=== PATIENT | male | born 1945 | race Two or more races ===

== ENCOUNTER → 2024-08-07 | Outpatient (CLI) | payer MEDICARE, MEDICAID, SELFPAY ==
--- NOTE | 2024-08-07 14:19 | XR_ITS ---
Examination: AP lateral chest 2 views Technique: Sitting AP lateral chest 2 views Exam date and time: August 07, 2024 1452 hrs. Comparison August 08, 2023 Indications: History pulmonary nodules Findings: Normal heart size Ectatic enlarged thoracic aorta No lobar pneumonia No pulmonary edema No rm pulmonary nodules Impression: No pneumonia or pulmonary edema, suggest repeat CT chest without contrast to compare with the August 08, 2023 exam
== END | disposition home or self-care (01) ==
PROVIDERS: PCP Family Medicine; Referring Provider Family Medicine; Visit Provider Family Medicine
DX: R91.8 Other nonspecific abnormal finding of lung field (principal)
CPT/HCPCS: 71046

== ENCOUNTER → 2024-08-20 | Outpatient (CLI) | payer MEDICARE, MEDICAID, SELFPAY ==
[2024-08-20 13:39] LABS: Basophils % (Auto) 0 % (0-2.5); Eosinophils % (Auto) 0 % (0-10); Hematocrit 30.1 % (41.0-53.0); Hemoglobin 10.5 g/dL (13.5-16.0); Immature Granulocytes % (Auto) 1 % (0-0); Immature Granulocytes Auto 0.08 Thou/mm3 (0.00-0.00); Lymphocytes # (Auto) 1.5 Thou/mm3 (1.0-4.8); Lymphocytes % (Auto) 13 % (10-50); Mean Corpuscular HGB Conc 34.9 g/dl (31.0-37.0); Mean Corpuscular Volume 92 fL (80-100); Monocytes # (Auto) 0.5 Thou/mm3 (0.0-0.8); Monocytes % (Auto) 4 % (0-12); Neutrophils # (Auto) 9.8 Thou/mm3 (1.8-7.7); Neutrophils % (Auto) 82 % (37-80); Nucleated Red Blood Cell % 0 /100 WBC (0); Platelet Count 546 Thou/mm3 (140-440); RDW Standard Deviation 45.2 fL (35.1-43.9); Red Blood Count 3.28 Miln/mm3 (4.50-5.90); White Blood Count 11.9 Thou/mm3 (3.8-10.6)
[2024-08-20 13:46] LABS: Glucose Estimated Average 209 mg/dL (80-131); Hemoglobin A1C 8.9 % Hgb (4.8-6.0)
[2024-08-20 13:50] LABS: Creatinine MALB Rnd Ur 68 mg/dL (30-125); Microalbumin Creat Ratio 257 mg/gCrea (<30); Microalbumin, Random Urine 175 mg/L (0-300)
[2024-08-20 13:53] LABS: Alanine Aminotransferase 15 U/L (10-49); Albumin, Serum 3.5 gm/dL (3.4-4.8); Albumin/Globulin Ratio 1.3 (1.2-2.2); Alkaline Phosphatase 108 U/L (46-116); Anion Gap 7 (7-16); Aspartate Amino Transferase 15 U/L (0-34); BUN/Creatinine Ratio 15 Ratio (12-20); Bilirubin,Total 0.6 mg/dL (0.3-1.2); Blood Urea Nitrogen 16 mg/dL (9-23); Calcium 8.5 mg/dL (8.3-10.6); Calcium (Corrected) 8.9 mg/dL (8.5-10.1); Carbon Dioxide 24.9 mMol/L (20.0-31.0); Cardiac Risk Estimate 3.3 RATIO (4.0-6.7); Chloride 100 mMol/L (98-107); Cholesterol 72 mg/dL (132-200); Creatinine (Component) 1.1 mg/dL (0.6-1.3); Globulin 2.8 gm/dL (2.3-3.5); Glucose 397 mg/dL (74-106); HDL Cholesterol 22 mg/dL (40-60); LDL Cholesterol,Calculated 24 mg/dL (0-130); Osmolality,Calculated 282 (275-295); Potassium 4.2 mMol/L (3.4-5.1); Sodium 132 mMol/L (136-145); Total Protein 6.3 gm/dL (5.7-8.2); Triglycerides 132 mg/dL (30-150); eGFR > 60 See Note
== END | disposition home or self-care (01) ==
PROVIDERS: PCP Family Medicine; Referring Provider Family Medicine; Visit Provider Family Medicine
DX: E11.65 Type 2 diabetes mellitus with hyperglycemia (principal)
CPT/HCPCS: 36415; 80053; 80061; 82043; 82570; 83036; 85025

== ENCOUNTER 2024-08-31 17:37 | Inpatient (IN) | payer MEDICARE, MEDICAID, SELFPAY ==
[2024-08-31] VITALS (42 sets, daily range): BP systolic 92–131; BP diastolic 66–80; PULSE 54–136; RESP 14–35; TEMP 36.6; O2SAT 96–100; BMI 20.7
--- NOTE | 2024-08-31 17:38 | PC.NURSE ---
PT BROUGHT IN BY AMBULANCE WITH C/O NEAR SYNCOPE AT 1700. PT ALSO C/O GENERALIZED WEAKNESS AND SHORTNESS OF BREATH WITH WALKING ALL DAY
--- NOTE | 2024-08-31 17:47 | EKG_ITS ---
[facility] Test Date: 2024-08-31 Pat Name: SOHAIL BOLAND Department: Room: - Gender: Male [place]: : 1945 Requested By: ED Temporary Provider Order Number: [id number] Reading MD: ED Temporary Provider Measurements Intervals [place] Rate: 120 P: 71 NH: 138 QRS: 53 QRSD: 87 T: 61 QT: 318 QTc: 449 Interpretive Statements SINUS TACHYCARDIA WITH OCCASIONAL SUPRAVENTRICULAR PREMATURE COMPLEXES NONSPECIFIC T-WAVE ABNORMALITY ABNORMAL RHYTHM ECG Compared to ECG 08/08/2023 11:42:29 Sinus rhythm no longer present T-wave abnormality still present /store/S0/[id number].pdf
--- NOTE | 2024-08-31 18:25 | EKG_ITS ---
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
--- NOTE | 2024-08-31 18:25 | XR_ITS ---
Examination: CT brain head without contrast. 2-D sagittal coronal reconstructions Date and time of exam:August 31, 2024 2145 hours COMPARISON: April 26, 2023 Syncopal episode today CTDI: vol (mGy):54.2 DLP: (mGycm):1183 Technique: Multiple CT axial sections of the brain have been obtained, 5 mm slice thickness. Contrast has not been administered. 2-D sagittal, coronal reconstructions have been obtained Low dose protocols were performed. One or more of the following dose reduction techniques were used; automated exposure control, adjustment of the mA and/or KV according to patient size, use of iterative reconstruction technique. Findings: No significant ventricular enlargement. 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 No mass effect or midline shift Basal cisterns are not remarkable. Fourth ventricle is midline. Cranial vault intact. Impression: Negative for acute hemorrhage, mass effect or midline shift As clinically warranted, brain MRI follow-up would best assess for acute ischemic change
--- NOTE | 2024-08-31 18:25 | XR_ITS ---
Examination: AP chest single view TECHNIQUE: AP portable semiupright chest single view Examination type: August 31, 2024 1809 hours Comparison August 07, 2024 INDICATIONS: Shortness of breath today FINDINGS: Normal heart size Mildly ectatic thoracic aorta. No pneumonia or pulmonary edema. Prominent osteopenia with moderate osteoarthritis glenohumeral joints IMPRESSION: No pneumonia or pulmonary edema
--- NOTE | 2024-08-31 18:26 | XR_ITS ---
Examination: CT abdomen with intravenous contrast CT pelvis with intravenous contrast 2-D coronal reconstructions 2-D sagittal reconstructions Date and time of exam:August 31, 2024 at 2158 hours INDICATIONS: Sudden onset of abdominal pain today. CTDI: vol (mGy) 1021 DLP: (mGycm) 614 Technique: Multiple axial sections of the abdomen and pelvis have been obtained. 64 slice high-resolution scanner used. 3 mm axial sections have been obtained, post intravenous injection 100 cc Isovue-370 2-D sagittal, coronal reconstructions obtained. Low dose protocols were performed. One or more of the following dose reduction techniques were used; automated exposure control, adjustment of the mA and/or KV according to patient size, use of iterative reconstruction technique. Findings: Mucosal gastric edema No focal liver lesions Absent gallbladder Spleen not enlarged No pancreatic mass No common bile duct stones Moderate bilateral renal parenchymal scar formation Mild perinephric stranding No bowel obstruction Minimal thickening of the urinary bladder wall Significant prostatomegaly, transverse dimension 6.1 cm Significant osteopenia IMPRESSION: Gastritis pattern Moderate bilateral renal parenchymal scar formation with perinephric stranding, consider urinary tract infection Significant prostatomegaly, minimal thickening of the urinary bladder wall, likely early urinary tract outflow obstruction secondary to the prominent prostatomegaly
--- NOTE | 2024-08-31 18:26 | XR_ITS ---
Examination: CTA chest with intravenous contrast 2-D reconstructions 3-D reconstructions, vascular Date and time of exam: August 31, 2024 at 2158 hours INDICATIONS: Chest pain shortness of breath today CTDI: vol (mGy) 10.7 DLP: (mGycm) 471 Technique: Multiple axial sections of the thorax have been obtained. 3 mm slice thickness, from below the hemidiaphragms to above the apices of the lungs. Mediastinal and lung density settings have been obtained. 2-D sagittal and coronal reconstructions. 3-D angiographic renderings, 3-D volume renderings, 3D post processing, vascular maximum intensity projections obtained. Contrast administered is 100 cc Isovue 370. Low dose protocols were performed. One or more of the following dose reduction techniques were used; automated exposure control, adjustment of the mA and/or KV according to patient size, use of iterative reconstruction technique. Findings: No thoracic aortic aneurysm dilatation Pulmonary artery segments are not enlarged No pulmonary artery emboli No paratracheal tracheobronchial or bronchopulmonary adenopathy Stable bilateral subcentimeter pulmonary nodules COPD with areas of airspace destruction No pneumonia or pulmonary edema Bronchi in the lower lobes are dilated No liver or splenic lesion Absent gallbladder Kidneys partially visualized no hydronephrosis Multiple bilateral subcentimeter renal calculi IMPRESSION: No thoracic aortic aneurysm dilatation or dissection Negative for pulmonary artery emboli Stable subcentimeter pulmonary nodules compared with August 08, 2023 COPD No pneumonia or pulmonary edema Multiple bilateral subcentimeter nonobstructing renal calculi
--- NOTE | 2024-08-31 18:26 | XR_ITS ---
Examination: CT lumbar spine, without contrast. 2-D sagittal reconstructions. 2-D coronal reconstructions. 3-D reconstructions. Date and time of exam:August 31, 2024 2147 hours INDICATIONS: Onset lower back pain today CTDI: vol (mGy):34.1 DLP: (mGycm):1091 Technique: Multiple 1.25 mm axial sections of the lumbar spine without intravenous contrast have been obtained. 2-D sagittal and coronal reconstructions have been obtained. 3-D reconstructions have been obtained. Low dose protocols were performed. One or more of the following dose reduction techniques were used; automated exposure control, adjustment of the mA and/or KV according to patient size, use of iterative reconstruction technique. Findings: Severe osteopenia Lumbar fusion L4-L5, L5-S1 No spondylolisthesis Lumbar pedicles, laminae, transverse and posterior spinous processes intact L5-S1 6 mm central lumbar disc bulge contiguous with the right and left S1 nerve roots extending to the right foramen with moderate right L5 ganglionic compression L4-L5 no disc protrusion L3-L4 no disc protrusion L2-L3 no disc protrusion L1-L2 no disc protrusion Partial visualization bilateral subcentimeter renal calculi IMPRESSION: No lumbar fracture L5-S1 6 mm central and right foraminal disc bulge producing moderate right L5 ganglionic compression
--- NOTE | 2024-08-31 18:28 | PD.EDWEAK ---
ED Weakness RME/HPI General Chief complaint: Weakness Stated complaint: NEAR SYNCOPE Time Seen by Provider: 08/31/24 18:16 Arrival date/time: 08/31/24 17:37 Related Data Home Medications ?Medication ?Instructions ?Recorded ?Confirmed tamsulosin 0.4 mg capsule (Flomax) 0.4 mg PO QDAY ##0 07/15/16 08/10/23 finasteride 5 mg tablet 5 mg PO QDAY 07/05/19 08/10/23 docusate sodium 100 mg capsule 1 cap PO BID 03/04/22 08/10/23 dupilumab 300 mg/2 mL subcutaneous 2 ml subcut PRN PRN Pain 03/04/22 08/10/23 syringe (Dupixent) metformin 1,000 mg tablet 1 tab PO BID 03/04/22 08/10/23 multivitamin 1 tab PO QAM 03/04/22 08/10/23 sodium chloride 1,000 mg soluble 1 tab PO BID 03/04/22 08/10/23 tablet Previous Rx's ?Medication ?Instructions ?Recorded aspirin 81 mg tablet,delayed 81 mg PO QDAY #30 tabs 08/10/23 release atorvastatin 40 mg tablet 40 mg PO QPM #30 tabs 08/10/23 ticagrelor 90 mg tablet (Brilinta) 90 mg PO BID #60 tabs 08/10/23 Allergies Allergy/AdvReac Type Severity Reaction Status Date / Time naproxen Allergy Severe DIFFICULTY Verified 08/31/24 17:51 BREATHING Course Orders Category Date Time Status Bedside COVID-19 Antigen Test NOW Care 08/31/24 18:24 Active Bedside Influenza A&B Antigen Test NOW Care 08/31/24 18:[address] Screening NOW Care 08/31/24 18:26 Active EKG (ED ONLY) *Do not use* NOW Care 08/31/24 17:47 Completed EKG (ED ONLY) *Do not use* NOW Care 08/31/24 18:25 Completed Saline [Insert IV] NOW Care 08/31/24 18:24 Active Straight [In and Out Catheter] X1 Care 08/31/24 18:[address] abdomen pelvis w con Stat Exams 08/31/24 18:[address] angio chest Stat Exams 08/31/24 18:[address] head/brain wo con Stat Exams 08/31/24 18:[address] lumbar spine wo con Stat Exams 08/31/24 18:26 Ordered EKG (ED Only) Stat Exams 08/31/24 17:47 Draft EKG (ED Only) Stat Exams 08/31/24 18:25 Ordered XR chest 1V portable Stat Exams 08/31/24 18:25 Ordered BNP [B-Type Natriuretic Peptide] Stat Lab 08/31/24 18:26 Ordered Beta Hydroxybutyrate Stat Lab 08/31/24 18:27 Ordered Blood Culture (Lab) Stat Lab 08/31/24 18:27 Ordered CBC Stat Lab 08/31/24 18:27 Ordered CMP [Comprehensive Metabolic Panel] Stat Lab 08/31/24 18:27 Ordered CRP [C-Reactive Protein] Stat Lab 08/31/24 18:27 Ordered D-Dimer Stat Lab 08/31/24 18:27 Ordered ESR [Sed Rate (ESR)] Stat Lab 08/31/24 18:27 Ordered Lactate (Lactic Acid) Stat Lab 08/31/24 18:27 Ordered Magnesium Stat Lab 08/31/24 18:27 Ordered Procalcitonin Stat Lab 08/31/24 18:27 Ordered TSH [Thyroid Stimulating Hormone] Stat Lab 08/31/24 18:27 Ordered Troponin I Stat Lab 08/31/24 18:27 Ordered UA, C/S IF [Urinalysis, C/S if Indicated] Stat Lab 08/31/24 18:27 Ordered Sodium Chloride 0.9% 1000 ml [Ns] 1,000 ml Med 08/31/24 18:24 Active IV 999 mls/hr Vital Signs Vital signs: Vital Signs Temperature 97.9 F 08/31/24 17:38 Pulse Rate 127 H 08/31/24 17:38 Respiratory Rate 18 08/31/24 17:38 Blood Pressure 92/69 08/31/24 17:38 Pulse Oximetry (%) 99 08/31/24 17:38 Oxygen Delivery Method Room Air 08/31/24 17:38 Weakness Evaluation data The following diagnostics were reviewed and interpreted by me:: EKG tracing(s) (My interpretation of the EKG is: Sinus tachycardia (120 bpm) with nonspecific ST-T changes. Tramaine Albrecht MD) Medications / Prescriptions Medication administrations:: Medication Administration History Sodium Chloride (Ns) 1,000 mls @ 999 mls/hr IV .Q1H1M ONE Stop: 08/31/24 19:24 Discharge Plan Prescriptions/Referrals Prescriptions/Med Rec: No Action tamsulosin [Flomax] 0.4 MG capsule,extended release 24hr 0.4 mg PO QDAY Qty: 0 finasteride 5 mg tablet 5 mg PO QDAY Patient Comments: TAKE ONE TABLET BY MOUTH EVERY DAY FOR PROSTATE aspirin 81 mg Tablet,Delayed Release (Dr/Ec) 81 mg PO QDAY Qty: 30 2RF Brilinta 90 mg Tablet 90 mg PO BID Qty: 60 2RF atorvastatin 40 mg tablet 40 mg PO QPM Qty: 30 0RF multivitamin Tablet 1 tab PO QAM Patient Comments: TAKE ONE TABLET BY MOUTH EVERY DAY IN THE MORNING metformin 1,000 mg tablet 1 tab PO BID Patient Comments: TAKE ONE TABLET BY MOUTH TWICE DAILY docusate sodium 100 mg capsule 1 cap PO BID Patient Comments: TAKE ONE CAPSULE BY MOUTH TWICE DAILY FOR CONSTIPATION sodium chloride 1,000 mg tablet,soluble 1 tab PO BID Patient Comments: TAKE ONE TABLET BY MOUTH TWICE DAILY Dupixent Syringe 300 mg/2 mL syringe 2 ml SUBCUT PRN PRN (Reason: Pain) Patient Comments: INJECT ONE PEN SUBCUTANEOUSLY EVERY TWO WEEKS Rx Instructions: [id number] Patient/Caregiver Discharge Instructions Print Language: Hebrew
[2024-08-31] MEDS: SODIUM CHLORIDE 0.9% 1000 ML 1,000 ML 999 ML IV (18:46)
[2024-08-31 19:03] LABS: Lactate (Lactic Acid) 1.4 mMol/L (0.4-2.0)
[2024-08-31 19:04] LABS: Basophils # (Auto) 0.1 Thou/mm3 (0.0-0.2); Basophils % (Auto) 0 % (0-2.5); Eosinophils % (Auto) 0 % (0-10); Hematocrit 31.1 % (41.0-53.0); Hemoglobin 10.8 g/dL (13.5-16.0); Immature Granulocytes % (Auto) 1 % (0-0); Immature Granulocytes Auto 0.11 Thou/mm3 (0.00-0.00); Lymphocytes % (Auto) 9 % (10-50); Mean Corpuscular HGB Conc 34.7 g/dl (31.0-37.0); Mean Corpuscular Volume 92 fL (80-100); Monocytes # (Auto) 0.5 Thou/mm3 (0.0-0.8); Monocytes % (Auto) 5 % (0-12); Neutrophils # (Auto) 10.1 Thou/mm3 (1.8-7.7); Neutrophils % (Auto) 85 % (37-80); Nucleated Red Blood Cell % 0 /100 WBC (0); Platelet Count 567 Thou/mm3 (140-440); RDW Standard Deviation 48.4 fL (35.1-43.9); Red Blood Count 3.38 Miln/mm3 (4.50-5.90); White Blood Count 11.9 Thou/mm3 (3.8-10.6)
[2024-08-31 19:09] LABS: Beta Hydroxybutyrate 2.8 mmol/L (<0.6)
[2024-08-31 19:11] LABS: Sed Rate (ESR) 36 mm/hr (0-20)
[2024-08-31 19:23] LABS: B-Type Natriuretic Peptide 74 pg/mL (0-100)
[2024-08-31 19:27] LABS: Alanine Aminotransferase 13 U/L (10-49); Albumin, Serum 3.6 gm/dL (3.4-4.8); Albumin/Globulin Ratio 1.2 (1.2-2.2); Alkaline Phosphatase 98 U/L (46-116); Anion Gap 11 (7-16); Aspartate Amino Transferase 19 U/L (0-34); BUN/Creatinine Ratio 14 Ratio (12-20); Bilirubin,Total 0.5 mg/dL (0.3-1.2); Blood Urea Nitrogen 15 mg/dL (9-23); Calcium 9.1 mg/dL (8.3-10.6); Calcium (Corrected) 9.4 mg/dL (8.5-10.1); Carbon Dioxide 23.4 mMol/L (20.0-31.0); Chloride 107 mMol/L (98-107); Creatinine (Component) 1.1 mg/dL (0.6-1.3); Estimated Creatinine Clearance 48.9 mL/min (>60); Globulin 3.1 gm/dL (2.3-3.5); Glucose 218 mg/dL (74-106); Magnesium 1.6 mg/dL (1.6-2.6); Osmolality,Calculated 289 (275-295); Potassium 4.1 mMol/L (3.4-5.1); Sodium 141 mMol/L (136-145); Total Protein 6.7 gm/dL (5.7-8.2); eGFR > 60 See Note
[2024-08-31 19:29] LABS: Troponin I 0.106 ng/mL (0.0-0.045)
[2024-08-31 19:56] LABS: D-Dimer 1300 ng/mL (<600)
[2024-08-31 20:42] LABS: Partial Thromboplastin Time 26.6 Seconds (22.0-36.0); Prothrombin Time 11.3 Seconds (9.0-12.2)
[2024-08-31 20:51] LABS: C-Reactive Protein 2.3 mg/dL (0.0-0.9); Procalcitonin 0.14 ng/ml (0.0-0.49); Thyroid Stimulating Hormone 1.43 uIU/mL (0.55-4.78)
[2024-08-31] MEDS: METOPROLOL TARTRATE 25 MG TABLET 12.5 MG PO (21:30)
[2024-08-31] MEDS: ASPIRIN 81 MG CHEW 324 MG PO (21:30)
[2024-08-31 22:01] LABS: Troponin I 0.784 ng/mL (0.0-0.045)
--- NOTE | 2024-08-31 23:01 | ESHP_ITS ---
<Statement entered by Donis Bains MD - 09/02/24 05:06> I reviewed above note and agree with findings and plans. I have also personally examined the patient with medicine team and went over assessment and plan with medical team including technology risk intern and resident physician. Documentation for date of: 08/31/24 HPI History of Present Illness History of present illness: The patient is a 78-year-old male with significant past medical history of hypertension, diabetes mellitus type 2, coronary artery disease s/p stents on July 2023, peripheral arterial disease, BPH presented to ED with chief complaint of generalized weakness and SOB. The patient reported that he was in his restroom, and he suddenly started feeling that he would not be able to walk anymore and called his grandson to help him out. He walks around his home with walker at baseline. He denied any headache, lightheadedness, chest pain, fever or chills, nausea or vomiting, any changes in bowel or bladder habit. He denied any leg swelling. In the ED, his vitals were significant for blood pressure 92/69, pulse 127 and saturating 99% on room air. Labs are significant for white count 11.9, RBC 3.38, hemoglobin 10.8, platelet 567, ESR 36, chemistry panel revealed creatinine clearance 48, creatinine 1.1 with baseline of 0.7. Blood sugar 218, initial troponin 0.106 that trended up to 0.784 and CRP 2.3. TSH 1.43. EKG revealed mild ST segment depression on V2 and V3 with sinus tachycardic. Chest x-ray revealed no pneumonia or pulmonary edema, head CT was negative for acute hemorrhage, mass effect or midline shift, abdomen/pelvis CT revealed gastritis pattern, moderate bilateral renal parenchymal eschar formation with perinephric stranding, significant prostatomegaly, minimal thickening of the urinary bladder wall. Chest CTA revealed no thoracic aortic artery aneurysm or dissection, negative for pulmonary artery emboli, multiple bilateral subcentimeter nonobstructive renal calculi. Lumbar MRI revealed L5-S1 6 mm central and right foraminal disc bulge producing moderate right L5 ganglionic compression. PMH: As mentioned above SHX: Cholecystectomy long time ago, 2 coronary stent placed on July 2023 Social history: About 50 pack year smoking history, smoking for 50 to 60 years, current smoker, denies any alcohol or illicit drug use Allergies: Naproxen, difficult to breathing Medications: Metformin thousand Mg daily, Jardiance 10 mg daily, tamsulosin 0.4 Mg daily, finasteride 5 Mg daily, salt tablet 1 g twice daily, trazodone 50 mg at bedtime, atorvastatin 80 Mg at bedtime, clopidogrel 75 Mg daily The patient received chewable aspirin 325 Mg x 1, was started on heparin drip ACS protocol. Manager Battery Dr. Mcdaniel once consulted, recommended heparin drip and admitting the patient to telemetry unit. Review of Systems Review of Systems Systems Reviewed: All systems reviewed, normal except as documented Exam Vital Signs Temp Pulse Resp BP Pulse Ox O2 Del Method 97.9 F 84 18 125/66 100 Room Air 08/31/24 22:08/31/24 22:08/31/24 22:08/31/24 22:29 08/31/24 22:08/31/24 22:29 Narrative Exam General: Elderly, cooperative gentleman, no acute distress, Alert and Oriented x 3, laying comfortably on bed HEENT: Mildly dry mucous membranes, oropharynx clear Neck: Supple, No masses, No JVD CVS: S1S2 Regular rate and rhythm, No murmurs, rubs or gallops Lungs: Clear to auscultation with no accessory use, no wheeze no rhonchi Abd: Soft, NT/ND, +BS, no organomegaly Ext: No edema, warm and well perfused Skin: No rash Psych: Appropriate mood and affect Results: Labs 08/31/24 18:43 08/31/24 18:43 Labs: Short CBC 08/31/24 Range/Units 18:43 WBC 11.9 H (3.8-10.6) Thou/mm3 Hgb 10.8 L (13.5-16.0) g/dL Hct 31.1 L (41.0-53.0) % Plt Count 567 H (140-440) Thou/mm3 BMP 08/31/24 18:43 Sodium 141 Potassium 4.1 Chloride 107 Carbon Dioxide 23.4 BUN 15 Creatinine 1.1 Glucose 218 H Calcium 9.1 Cardiac Enzymes 08/31/24 08/31/24 Range/Units 18:43 21:16 Troponin I 0.106 H* 0.784 H* D (0.0-0.045) ng/mL Liver Function 08/31/24 Range/Units 18:43 Total Bilirubin 0.5 (0.3-1.2) mg/dL AST 19 (0-34) U/L ALT 13 (10-49) U/L Alkaline Phosphatase 98 (46-116) U/L Albumin 3.6 (3.4-4.8) gm/dL Quality Measures Quality Measures VTE prophylaxis Advance care planning discussed with:: patient Medications Home Medications and Allergies Home Medications ?Medication ?Instructions ?Recorded ?Confirmed ?Type tamsulosin 0.4 mg capsule (Flomax) 0.4 mg PO QDAY ##0 07/15/16 08/10/23 History finasteride 5 mg tablet 5 mg PO QDAY 07/05/19 History docusate sodium 100 mg capsule 1 cap PO BID 03/04/22 0 08/10/23 History dupilumab 300 mg/2 mL subcutaneous 2 ml subcut PRN PRN Pain 03/04/22 08/10/23 History syringe (Dupixent) metformin 1,000 mg tablet 1 tab PO BID 03/04/22 History multivitamin 1 tab PO QAM 03/04/22 History sodium chloride 1,000 mg soluble 1 tab PO BID 03/04/22 08/10/23 History tablet Allergies Allergy/AdvReac Type Severity Reaction Status Date / Time naproxen Allergy Severe DIFFICULTY Verified 08/31/24 17:51 BREATHING Visit Medications Acetaminophen (Acetaminophen 325 Mg Tablet) 650 mg PO Q6H PRN PRN Reason: Fever >101.5 Stop: 09/30/24 22:51 Acetaminophen (Acetaminophen 325 Mg Tablet) 650 mg PO Q6H PRN PRN Reason: PAIN SCALE 1-3 (mild Stop: 09/30/24 22:51 Aspirin (Aspirin Ec 81 Mg Tabec) 81 mg PO HS HUMBERTO Stop: 10/01/24 20:59 Atorvastatin Calcium (Atorvastatin Calcium 10 Mg Tablet) 80 mg PO HS HUMBERTO Stop: 09/30/24 22:59 Finasteride (Finasteride 5 Mg Tablet) 5 mg PO QDAY HUMBERTO Stop: 10/01/24 08:59 Tamsulosin HCl (Tamsulosin Hcl 0.4 Mg Capsule) 0.4 mg PO HS HUMBERTO Stop: 10/01/24 20:59 Trazodone HCl (Trazodone Hcl 50 Mg Tablet) 50 mg PO HS HUMBERTO Stop: 09/30/24 22:59 Discontinued Medications Aspirin (Aspirin 81 Mg Chew) 324 mg PO X1 ONE Stop: 08/31/24 20:08 Enoxaparin Sodium (Enoxaparin Sod Inj 60 Mg/0.6 Ml Syringe) 65 mg SC X1 ONE Stop: 08/31/24 22:02 Sodium Chloride (Ns) 1,000 mls @ 999 mls/hr IV .Q1H1M ONE Stop: 08/31/24 19:24 Last Admin: 08/31/24 18:46 Dose: 999 mls/hr Magnesium Sulfate (Magnesium Sulfate Ivpb) 2 gm in 50 mls @ 25 mls/hr IV X1 ONE Stop: 08/31/24 22:06 Metoprolol Tartrate (Metoprolol Tartrate 25 Mg Tablet) 12.5 mg PO X1 ONE Stop: 08/31/24 20:08 Assessment & Plan Plan The patient is a 78-year-old male with significant past medical history of hypertension, diabetes mellitus type 2, coronary artery disease s/p stents on July 2023, peripheral arterial disease, BPH presented to ED with chief complaint of generalized weakness and SOB. Manager Battery Dr. Mcdaniel once consulted, recommended heparin drip and admitting the patient to telemetry unit for further management of NSTEMI. #NSTEMI #CAD #PAD #Rule out CVA #Rule out pulmonary embolism The patient presented with generalized weakness and SOB, acute on onset, has extensive cardiac history with 2 stents placed 1 year ago, heart rate was 127 during presentation EKG revealed [address] segment depression over V2 and V3, troponin trended up to 0.784 from 0.106, but patient denied any chest pain or chest pressure Chest x-ray revealed no pneumonia or pulmonary edema, head CT was negative for acute hemorrhage, mass effect or midline shift, abdomen/pelvis CT revealed gastritis pattern, moderate bilateral renal parenchymal eschar formation with perinephric stranding, significant prostatomegaly, minimal thickening of the urinary bladder wall. Chest CTA revealed no thoracic aortic artery aneurysm or dissection, negative for pulmonary artery emboli Received serial aspirin 325 Mg x 1, and was started on heparin drip ACS protocol in the ED -Continue on heparin drip ACS protocol -Started on aspirin 81 Mg and atorvastatin 80 Mg daily at night -Started on metoprolol succinate 37.5 Mg daily -Holding clopidogrel in the setting of possible cardiac intervention -Manager Battery Dr. Brando Mcdaniel consulted, appreciate recommendations -Ordered TTE -Trend troponin every 4 hourly until delta is achieved -Daily a.m. labs for CBC, CMP and electrolytes #JT Likely prerenal in the setting of possible poor oral intake Baseline creatinine is 0.7, presented with creatinine of 1.1 Patient received 1 L of normal saline bolus in the ED -Avoid nephrotoxins -Adequate hydration -Daily a.m. labs for CMP and electrolytes #Diabetes mellitus type Presented with blood sugar of 218 and BHB 2.8 with anion gap of 11 Patient is taking 1 g metformin daily along with Jardiance 10 mg daily at home -Started on sliding scale insulin every 6 hourly with lispro -Ordered A1c #Primary hypertension Currently blood pressure is under control -Started on home dose of metoprolol succinate and 37.5 Mg daily -Monitor closely #Mild normocytic anemia Presented with hemoglobin of 10.8, MCV 92 -Ordered iron panel and ferritin -Ordered peripheral blood smear -Ordered reticulocyte count -Ordered folic acid and vitamin B12 level -Ordered occult test for stool #Mild thrombocythemia #Mild leukocytosis Likely secondary to hemoconcentration and also reactive Presented with platelet of 567 and white count of 11.9 -Daily a.m. labs for CBC #Multiple bilateral subcentimeter nonobstructive renal calculi -Adequate fluid intake #Possible UTI Patient denies any urinary symptoms Moderate bilateral renal parenchymal eschar formation with perinephric stranding, significant prostatomegaly, minimal thickening of the urinary bladder wall -Ordered UA #L5-S1 disc bulges Lumbar MRI revealed L5-S1 6 mm central and right foraminal disc bulge producing moderate right L5 ganglionic compression. -Follow-up as an outpatient basis with orthopedics Health maintenance: Dispo: Patient admitted to telemetry unit for further management of NSTEMI DVT prophylaxis: On heparin drip Diet: Carb consistent low diet CODE STATUS: Full code The patient's management plan was discussed with my attending physician MD Ever Woodard MD, PGY2
[2024-08-31] MEDS: Magnesium Sulfate 2 GM Ivpb 2 GM/50 ML BAG IV (23:15)
[2024-09-01] VITALS (11 sets, daily range): BP systolic 106–154; BP diastolic 57–88; PULSE 65–81; RESP 15–22; TEMP 36.3–36.9; O2SAT 98–100; BMI 22.6; BMI 19.9
[2024-09-01] MEDS: HEPARIN SOD INJ 5000 UNIT/ML VIAL 3800 UNIT IV (00:10)
[2024-09-01] MEDS: Heparin/D5w 25K 250 ML Ivpb 25,000 UNIT/250 ML BAG 7.62 UNIT IV (00:14)
[2024-09-01 00:59] LABS: Troponin I 1.098 ng/mL (0.0-0.045)
[2024-09-01] MEDS: PANTOPRAZOLE INJ 40 MG VIAL IVP (02:18)
[2024-09-01] MEDS: Magnesium Sulfate 2 GM Ivpb 2 GM/50 ML BAG IV (02:30)
[2024-09-01] MEDS: INSULIN LISPRO (AdmeLOG) 1 UNIT/0.01 ML UNIT SC ×3 (02:40→20:28)
[2024-09-01] MEDS: ATORVASTATIN CALCIUM 10 MG TABLET 80 MG PO (03:07)
[2024-09-01] MEDS: traZODone HCL 50 MG TABLET PO ×2 (03:10→20:27)
--- NOTE | 2024-09-01 03:15 | PC.NURSE ---
@[id number] primary nurse on lunch a this time, bond writer covering primary nurse while on lunch. bond writer made contact with pt. pt found to have right upper arm 18GIV out and pt arm and gown and linen covered in blood. Pressure applied to sight until bleeding stopped, site cleaned, gauze applied and covered with pressure dressing, hematoma noted to iv site. New 20giv inserted to Rt forearm. No other signs of bleeding noted. Pt given new gown, and linen, and repositioned in bed. pt in NAD. call light within reach. bed at lowest position. pt updated on plan of care. plan of care ongoing.
[2024-09-01 04:31] LABS: Basophils # (Auto) 0.1 Thou/mm3 (0.0-0.2); Basophils % (Auto) 1 % (0-2.5); Eosinophils # (Auto) 0.1 Thou/mm3 (0.0-0.5); Eosinophils % (Auto) 1 % (0-10); Immature Granulocytes % (Auto) 1 % (0-0); Immature Granulocytes Auto 0.11 Thou/mm3 (0.00-0.00); Immature Reticulocyte Fraction 20.9 % (2.3-13.4); Lymphocytes # (Auto) 1.7 Thou/mm3 (1.0-4.8); Lymphocytes % (Auto) 18 % (10-50); Mean Corpuscular HGB Conc 34.8 g/dl (31.0-37.0); Mean Corpuscular Hemoglobin 32.5 pg (25.0-35.0); Mean Corpuscular Volume 93 fL (80-100); Monocytes # (Auto) 0.5 Thou/mm3 (0.0-0.8); Monocytes % (Auto) 5 % (0-12); Neutrophils # (Auto) 7.2 Thou/mm3 (1.8-7.7); Neutrophils % (Auto) 74 % (37-80); Nucleated Red Blood Cell % 0 /100 WBC (0); Platelet Count 467 Thou/mm3 (140-440); RDW Standard Deviation 49.7 fL (35.1-43.9); Red Blood Count 2.68 Miln/mm3 (4.50-5.90); Reticulocyte % (Auto) 2.3 % (0.5-1.5); Reticulocyte Absolute Auto 61.1 Biln/L (25.0-75.0); Reticulocyte Hgb Content 35.9 pg (28.0-35.0); White Blood Count 9.7 Thou/mm3 (3.8-10.6)
[2024-09-01 04:37] LABS: Hemoglobin 8.7 g/dL (13.5-16.0)
[2024-09-01 04:51] LABS: Glucose Estimated Average 223 mg/dL (80-131); Hemoglobin A1C 9.4 % Hgb (4.8-6.0)
[2024-09-01 05:04] LABS: Alanine Aminotransferase 12 U/L (10-49); Albumin, Serum 3.1 gm/dL (3.4-4.8); Albumin/Globulin Ratio 1.2 (1.2-2.2); Alkaline Phosphatase 84 U/L (46-116); Anion Gap 7 (7-16); Aspartate Amino Transferase 14 U/L (0-34); BUN/Creatinine Ratio 14 Ratio (12-20); Bilirubin,Total 0.4 mg/dL (0.3-1.2); Blood Urea Nitrogen 13 mg/dL (9-23); Calcium 7.9 mg/dL (8.3-10.6); Calcium (Corrected) 8.6 mg/dL (8.5-10.1); Carbon Dioxide 23.3 mMol/L (20.0-31.0); Chloride 108 mMol/L (98-107); Cholesterol 66 mg/dL (132-200); Creatinine (Component) 0.9 mg/dL (0.6-1.3); Estimated Creatinine Clearance 59.8 mL/min (>60); Globulin 2.6 gm/dL (2.3-3.5); Glucose 93 mg/dL (74-106); HDL Cholesterol 22 mg/dL (40-60); LDL Cholesterol,Calculated 28 mg/dL (0-130); Magnesium 2.4 mg/dL (1.6-2.6); Osmolality,Calculated 275 (275-295); Phosphorous 3.1 mg/dL (2.4-5.1); Potassium 3.4 mMol/L (3.4-5.1); Sodium 138 mMol/L (136-145); Thyroid Stimulating Hormone 0.95 uIU/mL (0.55-4.78); Total Protein 5.7 gm/dL (5.7-8.2); Triglycerides 79 mg/dL (30-150); eGFR > 60 See Note
[2024-09-01 05:26] LABS: Basophils # (Auto) 0.1 Thou/mm3 (0.0-0.2); Basophils % (Auto) 1 % (0-2.5); Eosinophils # (Auto) 0.1 Thou/mm3 (0.0-0.5); Eosinophils % (Auto) 1 % (0-10); Hematocrit 24.7 % (41.0-53.0); Immature Granulocytes % (Auto) 1 % (0-0); Immature Granulocytes Auto 0.08 Thou/mm3 (0.00-0.00); Lymphocytes # (Auto) 1.6 Thou/mm3 (1.0-4.8); Lymphocytes % (Auto) 17 % (10-50); Mean Corpuscular HGB Conc 34.8 g/dl (31.0-37.0); Mean Corpuscular Hemoglobin 31.9 pg (25.0-35.0); Mean Corpuscular Volume 92 fL (80-100); Monocytes # (Auto) 0.5 Thou/mm3 (0.0-0.8); Monocytes % (Auto) 6 % (0-12); Neutrophils # (Auto) 7.2 Thou/mm3 (1.8-7.7); Neutrophils % (Auto) 75 % (37-80); Nucleated Red Blood Cell % 0 /100 WBC (0); Platelet Count 467 Thou/mm3 (140-440); RDW Standard Deviation 47.5 fL (35.1-43.9); White Blood Count 9.5 Thou/mm3 (3.8-10.6)
[2024-09-01 05:27] LABS: Hemoglobin 8.6 g/dL (13.5-16.0)
[2024-09-01 05:40] LABS: Ferritin 219 ng/mL (10.5-307.3); Iron 59 mcg/dL (65-175); Percent Iron Saturation 33 % (20-55); Total Iron Binding Capacity 176 mcg/dL (250-425); Unsaturated Iron Binding 117 (225-295)
[2024-09-01] MEDS: HEPARIN SOD INJ 5000 UNIT/ML VIAL 1900 UNIT IVP (07:10)
--- NOTE | 2024-09-01 09:02 | PC.NURSE ---
patient brief and linen changed, soiled of urine, clean linen and dry brief applied. Call light placed within reach.
--- NOTE | 2024-09-01 09:15 | PC.NURSE ---
per hold metoprolol current b/p 127/64 pt is npo
[2024-09-01] MEDS: POTASSIUM CHL 10 mEq IVPB 10 MEQ/100 ML BAG 100 MEQ IV ×2 (09:20→11:12)
--- NOTE | 2024-09-01 09:34 | PC.CC ---
Patient is a 78 year-old male who presents to the hospital for NSTEMI. Chanelle HO made [id number] contact with patient. ASW introduced self, role, and reason for visit. Patient was asleep ASW completed initial assessment with patient's daughter, Colette Cooper who is at bedside. Patient's daughter reports patient's next of kin is patient's her mother Olamide Scott. Patient lives at home with his and daughter Colette. At home patient uses a walker to ambulate and needs assistance with completing his ADLs. Patient does not use any oxygen. Patient's daughter reports she assist patient with ADLs. Patient receives primary care with [facility] and uses [facility] for prescription medications. Upon discharge the patient will be going back home. account services manager to follow up with any discharge needs.
--- NOTE | 2024-09-01 09:36 | PC.NURSE ---
slowed potassium rate to 75 as pt was having burning at site
[2024-09-01 09:37] LABS: Troponin I 0.687 ng/mL (0.0-0.045)
--- NOTE | 2024-09-01 11:51 | ESPR_ITS ---
Documentation for date of: 09/01/24 Subjective Subjective Interval history: 09/01/2024: Overnight admission for a 78-year-old male with past medical history of hypertension, type 2 diabetes, BPH, coronary artery disease status post 2 stent placement in July [address] Mcdaniel presenting to the ED with generalized weakness and some shortness of breath found to have NSTEMI type I and started on heparin drip. Patient seen and examined in hospital bed is apparently asymptomatic at this time and denies having any concerning symptoms such as chest pain, palpitations, shortness of breath, dizziness or headaches; however, patient does report some epigastric tenderness on palpation. Patient's troponin have peaked and are now downtrending but he will remain on heparin drip, aspirin and statin pending cardiology recommendations. Patient also has suspicion for UTI as noted by CT findings of prostatomegaly and perinephric stranding; moreover, obtaining urinalysis and urine cultures from clean-catch. Will continue to monitor for any acute changes. Exam Vital Signs Temp Pulse Resp BP Pulse Ox O2 Del Method 98 F 65 18 127/64 98 Room Air 09/01/24 04:38 09/01/24 04:38 09/01/24 04:38 09/01/24 09:14 09/01/24 04:38 09/01/24 04:38 Narrative Exam Physical Exam: GENERAL: Awake, answering questions appropriately, appears stated age HEENT: NC/AT. Moist mucosa. PERRLA/EOMI. Poor dentition CARDIO: Heart RRR, no obvious murmurs, no JVD. PULM: No coughing or visible SOB. Lungs CTA B/L. GI: Abdomen soft, NT/ND except for epigastric tenderness noted, +BS. No guarding or rebound tenderness. SKIN/MSK/EXT: No wounds/discoloration/rashes/edema/amputations. +Pedal pulses present B/L. NEURO: Oriented x3, Moves extremities x4, no focal neurologic deficits Objective Labs 09/02/24 05:37 09/02/24 05:37 Labs: Laboratory Results - last 24 hr 08/31/24 08/31/24 09/01/24 18:43 21:16 00:26 WBC 11.9 H RBC 3.38 L Hgb 10.8 L Hct 31.1 L MCV 92 MCH 32.0 MCHC 34.7 RDW Std Deviation 48.4 H Plt Count 567 H Neut % (Auto) 85 H Lymph % (Auto) 9 L Davidson % (Auto) 5 Eos % (Auto) 0 Baso % (Auto) 0 Neut # (Auto) 10.1 H Lymph # (Auto) 1.0 Davidson # (Auto) 0.5 Eos # (Auto) 0.0 Baso # (Auto) 0.1 Immature Gran # (Auto) 0.11 H Absolute Nucleated RBC 0.00 Immature Gran % 1 H Nucleated RBC % 0 ESR 36 H Retic Count (auto) Absolute Retic Immature Retic Fraction Retic Hgb Content CHr PT 11.3 INR 1.0 APTT 26.6 D-Dimer 1300 H Sodium 141 Potassium 4.1 Chloride 107 Carbon Dioxide 23.4 Anion Gap 11 BUN 15 Creatinine 1.1 Estim Creat Clear Calc 48.9 L eGFR > 60 BUN/Creatinine Ratio [address]ucose [address] Glu mg/dL Hemoglobin A1c Calculated Osmolality 289 Lactic Acid 1.4 Calcium 9.1 Corrected Calcium 9.4 Phosphorus Magnesium 1.6 Iron TIBC Iron Saturation Unsat Iron Binding Ferritin Total Bilirubin 0.5 AST 19 ALT 13 Alkaline Phosphatase 98 Troponin I 0.106 H* 0.784 H* D 1.098 H* D C-Reactive Prot, Quant 2.3 H B-Natriuretic Peptide 74 Total Protein 6.7 Albumin 3.6 Globulin 3.1 Albumin/Globulin Ratio 1.2 Triglycerides Cholesterol LDL Cholesterol, Calc HDL Cholesterol Cholesterol/HDL Ratio Beta-Hydroxybutyrate/Acetoacetate 2.8 H Procalcitonin 0.14 TSH 1.43 09/01/24 09/01/24 09/01/24 04:20 05:10 06:09 WBC 9.7 9.5 RBC 2.68 L 2.70 L Hgb 8.7 L D 8.6 L Hct 25.0 L 24.7 L MCV 93 92 MCH 32.5 31.9 MCHC 34.8 34.8 RDW Std Deviation 49.7 H 47.5 H Plt Count 467 H D 467 H Neut % (Auto) 74 75 Lymph % (Auto) 18 17 Davidson % (Auto) 5 6 Eos % (Auto) 1 1 Baso % (Auto) 1 1 Neut # (Auto) 7.2 7.2 Lymph # (Auto) 1.7 1.6 Davidson # (Auto) 0.5 0.5 Eos # (Auto) 0.1 0.1 Baso # (Auto) 0.1 0.1 Immature Gran # (Auto) 0.11 H 0.08 H Absolute Nucleated RBC 0.00 0.00 Immature Gran % 1 H 1 H Nucleated RBC % 0 0 ESR Retic Count (auto) 2.3 H Absolute Retic 61.1 Immature Retic Fraction 20.9 H Retic Hgb Content CHr 35.9 H PT INR APTT 46.0 H D D-Dimer Sodium 138 Potassium 3.4 D Chloride 108 H Carbon Dioxide 23.3 Anion Gap 7 BUN 13 Creatinine 0.9 Estim Creat Clear Calc 59.8 L eGFR > 60 BUN/Creatinine Ratio [address] Glu mg/dL 223 H Hemoglobin A1c 9.4 H Calculated Osmolality 275 Lactic Acid Calcium 7.9 L Corrected Calcium 8.6 Phosphorus 3.1 Magnesium 2.4 Iron 59 L TIBC 176 L Iron Saturation 33 Unsat Iron Binding 117 L Ferritin 219 Total Bilirubin 0.4 AST 14 ALT 12 Alkaline Phosphatase 84 Troponin I C-Reactive Prot, Quant B-Natriuretic Peptide Total Protein 5.7 Albumin 3.1 L D Globulin 2.6 Albumin/Globulin Ratio 1.2 Triglycerides 79 Cholesterol 66 L LDL Cholesterol, Calc 28 HDL Cholesterol 22 L Cholesterol/HDL Ratio 3.0 L Beta-Hydroxybutyrate/Acetoacetate Procalcitonin TSH 0.95 09/01/24 08:30 WBC RBC Hgb Hct MCV MCH MCHC RDW Std Deviation Plt Count Neut % (Auto) Lymph % (Auto) Davidson % (Auto) Eos % (Auto) Baso % (Auto) Neut # (Auto) Lymph # (Auto) Davidson # (Auto) Eos # (Auto) Baso # (Auto) Immature Gran # (Auto) Absolute Nucleated RBC Immature Gran % Nucleated RBC % ESR Retic Count (auto) Absolute Retic Immature Retic Fraction Retic Hgb Content CHr PT INR APTT D-Dimer Sodium Potassium Chloride Carbon Dioxide Anion Gap BUN Creatinine Estim Creat Clear Calc eGFR BUN/Creatinine Ratio Glucose Estimated Ave Glu mg/dL Hemoglobin A1c Calculated Osmolality Lactic Acid Calcium Corrected Calcium Phosphorus Magnesium Iron TIBC Iron Saturation Unsat Iron Binding Ferritin Total Bilirubin AST ALT Alkaline Phosphatase Troponin I 0.687 H* D C-Reactive Prot, Quant B-Natriuretic Peptide Total Protein Albumin Globulin Albumin/Globulin Ratio Triglycerides Cholesterol LDL Cholesterol, Calc HDL Cholesterol Cholesterol/HDL Ratio Beta-Hydroxybutyrate/Acetoacetate Procalcitonin TSH Quality Measures Quality Measures VTE prophylaxis Advance care planning discussed with:: patient and child Assessment & Plan Assessment Current Active Medications: Generic Name Dose Route Start Last Admin Trade Name Freq PRN Reason Stop Dose Admin Acetaminophen 650 mg 08/31/24 22:52 Acetaminophen 325 Mg Tablet PO 09/30/24 22:51 Q6H PRN Fever >101.5 Acetaminophen 650 mg 08/31/24 22:52 Acetaminophen 325 Mg Tablet PO 09/30/24 22:51 Q6H PRN PAIN SCALE 1-3 (mild Aspirin 81 mg 09/01/24 21:00 Aspirin Ec 81 Mg Tabec PO 10/01/24 20:59 HS HUMBERTO Atorvastatin Calcium 80 mg 09/01/24 21:00 Atorvastatin Calcium 20 Mg Tablet PO 09/30/24 22:59 HS HUMBERTO Dextrose 25 ml 08/31/24 23:01 Dextrose 50%-Water Inj 50 Ml Syringe IV 09/30/24 23:00 Q15MIN PRN BG 50-70 responsive npo pt Dextrose 50 ml 08/31/24 23:01 Dextrose 50%-Water Inj 50 Ml Syringe IV 09/30/24 23:00 Q15MIN PRN BG <50 OR BG <70 & pt unresponsive Finasteride 5 mg 09/01/24 09:00 09/01/24 10:09 Finasteride 5 Mg Tablet PO 10/01/24 08:59 Not Given QDAY HUMBERTO Glucagon 1 mg 08/31/24 23:01 Glucagon Inj 1 Mg Vial IM Q15MIN PRN BG <70, and no IV access Heparin Sodium/Dextrose 25,000 unit in 250 mls @ 7.62 mls/hr 08/31/24 23:15 09/01/24 07:11 Heparin In D5w Ivpb IV 09/14/24 23:14 14 units/kg/hr .Q24H HUMBERTO 8.89 mls/hr Titration Protocol 12 UNITS/KG/HR Potassium Chloride 10 meq in 100 mls @ 100 mls/hr 09/01/24 07:54 09/01/24 11:12 Kcl Ivpb IV 09/01/24 11:53 100 mls/hr Q1H HUMBERTO Administration Insulin Human Lispro 0 unit 08/31/24 23:15 09/01/24 11:48 Insulin Lispro (Admelog) 1 Unit/0.01 Ml Unit SC 09/30/24 23:14 Not Given Q6H HUMBERTO Protocol Metoprolol Succinate 37.5 mg 09/01/24 09:00 09/01/24 09:14 Metoprolol Succinate Xl 25 Mg Tabcr PO 10/01/24 08:59 Not Given QDAY HUMBERTO Pantoprazole Sodium 40 mg 09/01/24 00:10 09/01/24 02:18 Pantoprazole Inj 40 Mg Vial IVP 10/01/24 00:09 40 mg HS HUMBERTO Administration Tamsulosin HCl 0.4 mg 09/01/24 21:00 Tamsulosin Hcl 0.4 Mg Capsule PO 10/01/24 20:59 HS HUMBERTO Trazodone HCl 50 mg 08/31/24 23:00 09/01/24 03:10 Trazodone Hcl 50 Mg Tablet PO 09/30/24 22:59 50 mg HS HUMBERTO Administration Plan 78-year-old male with significant past medical history of hypertension, diabetes mellitus type 2, coronary artery disease s/p stents on July 2023, peripheral arterial disease, BPH presented to ED with chief complaint of generalized weakness and SOB. Selling Specialist Dr. Mcdaniel once consulted, recommended heparin drip and admitting the patient to telemetry unit for further management of NSTEMI. #NSTEMI type I #Coronary artery disease Patient follows Dr. Mcdaniel outpatient and has had 2 stents placed on July 2023 Patient presented with generalized weakness and SOB which occurred while he was attempting to ambulate at home In the ED, EKG revealed [address] segment depression over V2 and V3, but patient denied any chest pain or chest pressure Chest x-ray revealed no pneumonia or pulmonary edema, head CT was negative for acute hemorrhage, mass effect or midline shift, CT abdomen pelvis revealed gastritis pattern, moderate bilateral renal parenchymal eschar formation with perinephric stranding, significant prostatomegaly, minimal thickening of the urinary bladder wall. Chest CTA revealed no thoracic aortic artery aneurysm or dissection, negative for pulmonary artery emboli Patient's troponin went from 0.784-1.098 to 0.687 to 0.607 Plan: Continue Continue on heparin drip ACS protocol Continue aspirin 81 Mg and atorvastatin 80 Mg daily at night Continue metoprolol succinate 37.5 Mg daily Continue to hold clopidogrel in the setting of possible cardiac intervention Selling Specialist Dr. Mcdaniel consulted, appreciate recommendations Echo ordered Stop trending troponin Keep potassium greater than 4 and magnesium greater than 2 #Possible UTI Patient does state that he has some urinary retention at home likely secondary to the prostatomegaly seen on CT Patient denies having any fever/chills, dysuria, lower back pain or hematuria at this time On CT abdomen pelvis; moderate bilateral renal parenchymal eschar formation with perinephric stranding, significant prostatomegaly, minimal thickening of the urinary bladder wall Plan: Follow-up on UA and urine cultures #JT, improving Likely prerenal in the setting of possible poor oral intake Baseline creatinine is 0.7, presented with creatinine of 1.1 Patient received 1 L of normal saline bolus in the ED Plan: Avoid nephrotoxins Renally dose medications Follow-up with morning labs #Abo-rsimjzw-zxvivkdor type 2 diabetes A1c of 9.4 Presented with blood sugar of 218 and BHB 2.8 with anion gap of 11 Patient is taking 1 g metformin daily along with Jardiance 10 mg daily at home Plan: SSI #Primary hypertension Currently blood pressure is under control Plan: Continue home dose of metoprolol succinate and 37.5 Mg daily #Mild normocytic anemia Presented with hemoglobin of 10.8, MCV 92 Iron of 59, TIBC 176, iron saturation 33%, unsaturated iron binding of 117 and ferritin 219 Reticulocyte count within normal parameters Plan: Follow-up peripheral blood smear Follow-up folic acid and vitamin B12 level #Mild thrombocythemia #Mild leukocytosis Likely secondary to hemoconcentration and also reactive Presented with platelet of 567 and white count of 11.9 Plan: Continue monitor with morning labs #Subcentimeter pulmonary nodules Patient has history of smoking CT shows stable pulmonary nodules Plan: Low-dose CT reimaging when appropriate #Multiple bilateral subcentimeter nonobstructive renal calculi follow-up outpatient with repeat imaging if appropriate #L5-S1 disc bulges Lumbar MRI revealed L5-S1 6 mm central and right foraminal disc bulge producing moderate right L5 ganglionic compression. Plan: Follow-up as an outpatient basis with orthopedics Hospital Management: Lines: PIV Diet: Carb consistent low Bowel: Senna GI prophylaxis: Not needed DVT prophylaxis: On heparin drip Dispo: Pending cardiology recommendations regarding NSTEMI and workup for UTI Code: Full Patient seen and examined with attending Dr. Day and senior resident Dr. Cheryl Peerz, PGY-1 -- ATTESTATION: I saw and examined the patient this morning, and I agree with current management stated by the resident. Will continue to monitor patient during their stay. Patient is a 78-year-old male with past medical history hypertension, type 2 diabetes, coronary artery disease status post stents in July 2023, PAD, BPH who was admitted on 08/31/2024 due to an episode of weakness and shortness of breath. Patient was found to have NSTEMI type I with elevated troponins and ST segment depressions on leads V2 and V3. Patient was started on heparin drip as per ACS protocol and cardiology was consulted. Patient was also found to have a mild UTI and JT during admission. For also controlling his insulin and hypertension. Will continue with heparin and hold clopidogrel at this time for possible catheterization. Will follow-up with cardiology Disclaimer: Despite multiple revisions, due to the dictation software being used, the document bellow may not be free of grammatical errors including phonetic/typographic errors. However, this does not deter from our commitment to providing health care in the patient's best interest in mind. Dr. Mitchel Luna, PGY-3 Attending Provider Attestation/Addendum I, Hannah Day DO, attest that I was physically present for the baires portions of the service and evaluated the patient with the resident and I reviewed and discussed the case with the resident and agree with the resident's findings and plans of care as documented above Patient seen and evaluated this a.m. He states that he is feeling well at this time. He denies any fevers or chills. Patient was noted to have significant prostatomegaly on CT scan. There is some thickening of the bladder which may be secondary to the prostatomegaly versus UTI. Patient denies any dysuria, but endorses having increased urinary frequency and inability to completely void. Will order UA. Patient states that he seen and neurologist in the past, but did not go. Previous instrumentation either. Patient also denies any chest pain or shortness of breath. He complains that he is very hungry. Troponins have been downtrending, having peaked at 1.098. No ST or T wave changes noted on EKG. Cardiology was consulted regarding NSTEMI. Plan for cardiac cath in AM. Will place patient n.p.o. after midnight. Echocardiogram ordered.
[2024-09-01 12:14] LABS: Troponin I 0.607 ng/mL (0.0-0.045)
[2024-09-01 13:02] LABS: Collection Type, Urine Clean Catch
[2024-09-01] MEDS: POTASSIUM CHLORIDE 20 mEq TABCR 40 MEQ PO (13:12)
[2024-09-01 13:28] LABS: Bacteria,Urine 3+; Bilirubin,Urine Negative (Negative); Blood,Urine 1+ (Negative); Clarity,Urine Turbid (Clear/Hazy); Color,Urine Lt-Yellow (Lt Yel-Yel); Glucose, Urine 4+ (Negative); Ketones,Urine 1+ (Negative); Leukocyte Esterase,Urine Positive (Negative); Nitrite,Urine Positive (Negative); Protein,Urine Trace (Neg - Trace); RBC,Urine 7 /hpf (0-3); Specific Gravity,Urine 1.026 (1.001-1.035); Squamous Epithelial Cell,Urine < 1 /hpf (0-5); Urobilinogen,Urine Negative mg/dL (0.0-1.0); WBC,Urine 154 /hpf (0-5)
[2024-09-01 13:59] LABS: Partial Thromboplastin Time 66.1 Seconds (22.0-36.0)
--- NOTE | 2024-09-01 15:17 | ESCONSULT_ITS ---
RE: SOHAIL BOLAND : 1945 DATE OF CONSULTATION: 08/31/2024 CONSULTING PHYSICIANS: Dr. Albrecht, Emergency Room Physician REASON FOR CONSULTATION: Evaluation of possible acute myocardial infarction. CHIEF COMPLAINT: Shortness of breath and weakness. HISTORY OF PRESENT ILLNESS: The patient is a 78-year-old male with a past medical history of hypertension, hypercholesterolemia, peripheral arterial occlusive disease, diabetes mellitus, known history of fem-pop bypass graft surgery, stent placement in right lower extremity, and multiple medical issues, prostate hypertrophy who had near syncope and NSTEMI in 07/2023, underwent bifurcation angioplasty of posterior descending artery, posterolateral branch of the right coronary artery, two stents were placed, treated with medical management, doing well until today. He came to the hospital with nonspecific symptoms of shortness of breath, extreme weakness, started to feel dizzy, could not walk, extremely tired and weak, but did not have any syncope. He came to the hospital with these symptoms. EKG unremarkable, but cardiac enzymes elevated initially 0.1 went up to delta troponin elevation up to 0.7 suggestive of possible acute non-ST segment elevation myocardial infarction. Considering he had similar symptoms when he had previous coronary stent placement, admitted to the hospital and diagnosed with acute coronary syndrome and NSTEMI. The patient is still feeling very weak and short of breath. He does not complain of any chest pain; however, he did not have any chest pain before as well. ALLERGIES: NONE. MEDICATIONS: At home the patient takes; 1. Metformin 1000 mg daily. 2. Jardiance 10 mg daily. 3. Tamsulosin 0.4 daily. 4. Finasteride 5 mg daily. 5. Salt tablet 1 g daily. 6. Trazodone 50 mg at bedtime. 7. Atorvastatin 80 mg daily. 8. Aspirin 81 daily. 9. Plavix 75 mg daily. PAST MEDICAL HISTORY: Hypertension, coronary artery disease, status post stent placement in 07/2023, fem-pop bypass graft surgery, right lower extremity and stent placement, hypertension, diabetes mellitus, and COPD. SOCIAL HISTORY: The patient is a smoker, 50-pack year smoking. Currently still smoking. He does not drink alcohol. FAMILY HISTORY: Noncontributory. REVIEW OF SYSTEMS: CARDIOVASCULAR: Shortness of breath and fatigue, but no chest pain. GASTROINTESTINAL: No history of nausea or vomiting. GENITOURINARY: No history of frequency or dysuria. PHYSICAL EXAMINATION: GENERAL: Well-nourished, thin-built, elderly male, alert, awake, in no acute distress. VITAL SIGNS: Blood pressure 124/66, pulse rate is 75, respiratory rate 16, temperature normal. HEENT: Head is atraumatic and normocephalic. Eyes normal. ENT normal. NECK: Supple. No JVD. CHEST: Symmetrical. LUNGS: Decreased breath sounds at the bases, bilateral wheezes and emphysema. HEART: S1 and S2 regular, distant. ABDOMEN: Thin and soft. EXTREMITIES: Mild edema. Peripheral pulses and distal pulses are weak. There is evidence of right fem-pop scar tissue of the right groin. Left femoral pulse is weak. GENITOURINARY AND RECTAL: Not performed. NEUROLOGIC: Normal. DIAGNOSTIC DATA: Electrocardiogram showed sinus rhythm, nonspecific ST changes. Cardiac enzymes; 0.10 initial troponin went up to 0.7, significant delta troponin elevation. ASSESSMENT: 1. Acute coronary syndrome, [id number] elevation myocardial infarction. 2. Coronary artery disease, status post stent right coronary artery in [place], and PDA branches in 07/2024. 3. Peripheral arterial disease with history of fem-pop bypass surgery. 4. Hypertension. 5. Diabetes mellitus. 6. Chronic obstructive pulmonary disease. Continues to smoke. 7. Prostate hypertrophy. RECOMMENDATIONS: Continue IV heparin, aspirin. Continue medical management. Monitor his CBC for any bleeding issues. We will schedule the patient for coronary angiogram approximately in 24 to 48 hours depending on the clinical course. I would like to thank for referring this patient for cardiovascular evaluation. We will be glad to follow the patient with you. DT: 13:26:01 TT: 15:16:00 Ref: [id number] - TID: [id number]
--- NOTE | 2024-09-01 15:28 | ESPR_ITS ---
RE: GERALDO BOLAND : 1945 DATE OF SERVICE: 09/01/2024 SUBJECTIVE: Geraldo Boland was seen in the emergency room again. He still did not get a bed overnight. He was admitted to the hospital with acute shortness of breath and was found to have acute myocardial infarction and NSTEMI. Troponin level peaked at 1 and come down to 0.6 today, not having chest pain today, but still somewhat short of breath. Clinically, doing well. He does not complain of any chest pain. OBJECTIVE: Vital Signs: Blood pressure 134/66, pulse 68, respirations 16, temperature 98, saturating 100% on room air. HEENT: Head is atraumatic. NECK: Supple. No JVD. CHEST: Symmetrical. LUNGS: Clear. CARDIOVASCULAR: S1 and S2 regular. No gallops. ABDOMEN: Thin and soft. EXTREMITIES: No edema. GENITOURINARY AND RECTAL: Not performed. NEUROLOGIC: Normal. DIAGNOSTIC DATA: Electrocardiogram shows sinus rhythm, nonspecific changes. Cardiac enzymes as discussed earlier, slightly elevated up to 1.0 came down to normal. The patient also had chest CTA that showed no evidence of pulmonary emboli. There is some renal calculi detected as well incidentally. IMPRESSION: 1. Acute myocardial infarction, non-ST elevation myocardial infarction and acute coronary syndrome. 2. Coronary artery disease, status post stent placement of the right coronary artery, DENNIS and PDA branches in 07/2023. 3. Chronic obstructive pulmonary disease and history of smoking. 4. Hypertension. RECOMMENDATIONS: Continue IV heparin and aspirin. He also has anemia possibly, watch for any further drop in hemoglobin with IV heparin. May perform coronary angiogram tomorrow, but we will get a cardiac echo Doppler study in the morning for assessment of LV function and wall motion and decide whether he requires angiogram tomorrow or possibly on Monday. DT: 13:30:50 TT: 15:27:00 Ref: [id number] - TID: [id number]
[2024-09-01] MEDS: ASPIRIN EC 81 MG TABEC PO (20:27)
[2024-09-01] MEDS: ATORVASTATIN CALCIUM 20 MG TABLET 80 MG PO (20:27)
[2024-09-01] MEDS: TAMSULOSIN HCL 0.4 MG CAPSULE PO (20:27)
[2024-09-01 21:19] LABS: Folate 8.97 ng/mL (>5.38); Vitamin B12 128 pg/mL (211-911)
[2024-09-01 21:44] LABS: Partial Thromboplastin Time 52.4 Seconds (22.0-36.0)
[2024-09-02] VITALS (21 sets, daily range): BP systolic 116–159; BP diastolic 51–87; PULSE 67–115; RESP 12–100; TEMP 36.1–36.9; O2SAT 98–100; BMI 19.9; BMI 19.1
[2024-09-02] MEDS: Heparin/D5w 25K 250 ML Ivpb 25,000 UNIT/250 ML BAG 8.89 UNIT IV (04:24)
[2024-09-02 06:16] LABS: Basophils # (Auto) 0.1 Thou/mm3 (0.0-0.2); Basophils % (Auto) 1 % (0-2.5); Eosinophils # (Auto) 0.1 Thou/mm3 (0.0-0.5); Eosinophils % (Auto) 1 % (0-10); Hematocrit 26.2 % (41.0-53.0); Hemoglobin 9.1 g/dL (13.5-16.0); Immature Granulocytes % (Auto) 1 % (0-0); Immature Granulocytes Auto 0.09 Thou/mm3 (0.00-0.00); Lymphocytes # (Auto) 1.3 Thou/mm3 (1.0-4.8); Lymphocytes % (Auto) 14 % (10-50); Mean Corpuscular HGB Conc 34.7 g/dl (31.0-37.0); Mean Corpuscular Hemoglobin 32.6 pg (25.0-35.0); Mean Corpuscular Volume 94 fL (80-100); Monocytes # (Auto) 0.5 Thou/mm3 (0.0-0.8); Monocytes % (Auto) 5 % (0-12); Neutrophils # (Auto) 7.2 Thou/mm3 (1.8-7.7); Neutrophils % (Auto) 78 % (37-80); Nucleated Red Blood Cell % 0 /100 WBC (0); Platelet Count 480 Thou/mm3 (140-440); Red Blood Count 2.79 Miln/mm3 (4.50-5.90); White Blood Count 9.3 Thou/mm3 (3.8-10.6)
[2024-09-02 06:22] LABS: INR 1.1 (0.9-1.3); Partial Thromboplastin Time 46.9 Seconds (22.0-36.0); Prothrombin Time 11.5 Seconds (9.0-12.2)
[2024-09-02 06:31] LABS: Alanine Aminotransferase 14 U/L (10-49); Albumin, Serum 3.2 gm/dL (3.4-4.8); Albumin/Globulin Ratio 1.1 (1.2-2.2); Alkaline Phosphatase 80 U/L (46-116); Anion Gap 12 (7-16); Aspartate Amino Transferase 24 U/L (0-34); BUN/Creatinine Ratio 11 Ratio (12-20); Bilirubin,Total 0.4 mg/dL (0.3-1.2); Blood Urea Nitrogen 10 mg/dL (9-23); Calcium 8.7 mg/dL (8.3-10.6); Calcium (Corrected) 9.3 mg/dL (8.5-10.1); Chloride 108 mMol/L (98-107); Creatinine (Component) 0.9 mg/dL (0.6-1.3); Estimated Creatinine Clearance 57.7 mL/min (>60); Globulin 2.8 gm/dL (2.3-3.5); Glucose 158 mg/dL (74-106); Magnesium 1.8 mg/dL (1.6-2.6); Osmolality,Calculated 279 (275-295); Potassium 4.6 mMol/L (3.4-5.1); Sodium 139 mMol/L (136-145); eGFR > 60 See Note
[2024-09-02 07:19] LABS: Path Review Blood Smear Sent to Pathologist
[2024-09-02] MEDS: HEPARIN SOD INJ 5000 UNIT/ML VIAL 1800 UNIT IVP (07:23)
[2024-09-02] MEDS: METOPROLOL SUCCINATE XL 25 MG TABCR 37.5 MG PO (09:29)
[2024-09-02] MEDS: FINASTERIDE 5 MG TABLET PO (09:29)
[2024-09-02] MEDS: Magnesium Sulfate 4 GM Ivpb 4 GM/50 ML BAG IV (09:30)
[2024-09-02] MEDS: cefTRIAXone/D5w 1gm IV premix 1 GM/50 ML BAG IV (09:30)
--- NOTE | 2024-09-02 11:27 | ESPR_ITS ---
Documentation for date of: 09/02/24 Subjective Subjective Interval history: 09/02/2024: No acute overnight events to report. Patient seen and examined in hospital bed remains asymptomatic and denies having any concerning symptoms such as chest pain/tightness, abdominal pain, shortness of breath, dizziness or new headaches. Patient completed left heart catheterization with Dr. Mcdaniel and there were no signs of active disease noted; moreover, patient's stents are still patent. Patient's urine cultures positive for GNR, pending speciation. Patient will continue to be treated with IV antibiotics and we expect discharge within the next 24 hours. Exam Vital Signs Temp Pulse Resp BP Pulse Ox O2 Del Method 97.8 F 107 H 17 116/82 99 Room Air 09/02/24 08:00 09/02/24 09:29 09/02/24 08:00 09/02/24 09:29 09/02/24 08:00 09/02/24 08:00 Narrative Exam Physical Exam: GENERAL: Awake, answering questions appropriately, appears stated age HEENT: NC/AT. Moist mucosa. PERRLA/EOMI. Poor dentition CARDIO: Heart RRR, no obvious murmurs, no JVD. PULM: No coughing or visible SOB. Lungs CTA B/L. GI: Abdomen soft, NT/ND except for epigastric tenderness noted, +BS. No guarding or rebound tenderness. SKIN/MSK/EXT: No wounds/discoloration/rashes/edema/amputations. +Pedal pulses present B/L. NEURO: Oriented x3, Moves extremities x4, no focal neurologic deficits Objective Labs 09/03/24 04:55 09/03/24 04:55 Labs: Laboratory Results - last 24 hr 09/01/24 09/01/24 09/01/24 04:20 11:46 12:34 WBC RBC Hgb Hct MCV MCH MCHC RDW Std Deviation Plt Count Neut % (Auto) Lymph % (Auto) Love % (Auto) Eos % (Auto) Baso % (Auto) Neut # (Auto) Lymph # (Auto) Love # (Auto) Eos # (Auto) Baso # (Auto) Immature Gran # (Auto) Absolute Nucleated RBC Immature Gran % Nucleated RBC % Smear Path Review PT INR APTT Sodium Potassium Chloride Carbon Dioxide Anion Gap BUN Creatinine Estim Creat Clear Calc eGFR BUN/Creatinine Ratio Glucose Calculated Osmolality Calcium Corrected Calcium Phosphorus Magnesium Total Bilirubin AST ALT Alkaline Phosphatase Troponin I 0.607 H* Total Protein Albumin Globulin Albumin/Globulin Ratio Vitamin B12 128 L Folate 8.97 Ur Collection Type Clean Catch Urine Color Lt-Yellow Urine Clarity Turbid A Urine pH 6.0 Ur Specific [place] 1.026 Urine Protein Trace Urine Glucose (UA) 4+ A Urine Ketones 1+ A Urine Blood 1+ A Urine Nitrite Positive Urine Bilirubin Negative Urine Urobilinogen (Auto) Negative Ur Leukocyte Esterase Positive Urine RBC 7 H Urine WBC 154 H Ur Squamous Epith Cells < 1 Urine Bacteria 3+ A 09/01/24 09/01/24 09/02/24 13:24 21:08 05:37 WBC 9.3 RBC 2.79 L Hgb 9.1 L Hct 26.2 L MCV 94 MCH 32.6 MCHC 34.7 RDW Std Deviation 50.0 H Plt Count 480 H Neut % (Auto) 78 Lymph % (Auto) 14 Love % (Auto) 5 Eos % (Auto) 1 Baso % (Auto) 1 Neut # (Auto) 7.2 Lymph # (Auto) 1.3 Love # (Auto) 0.5 Eos # (Auto) 0.1 Baso # (Auto) 0.1 Immature Gran # (Auto) 0.09 H Absolute Nucleated RBC 0.00 Immature Gran % 1 H Nucleated RBC % 0 Smear Path Review Sent to Pathologist PT 11.5 INR 1.1 APTT 66.1 H D 52.4 H D 46.9 H Sodium 139 Potassium 4.6 D Chloride 108 H Carbon Dioxide 19.0 L Anion Gap 12 BUN 10 Creatinine 0.9 Estim Creat Clear Calc 57.7 L eGFR > 60 BUN/Creatinine Ratio 11 L Glucose 158 H D Calculated Osmolality 279 Calcium 8.7 Corrected Calcium 9.3 Phosphorus 3.0 Magnesium 1.8 Total Bilirubin 0.4 AST 24 ALT 14 Alkaline Phosphatase 80 Troponin I Total Protein 6.0 Albumin 3.2 L Globulin 2.8 Albumin/Globulin Ratio 1.1 L Vitamin B12 Folate Ur Collection Type Urine Color Urine Clarity Urine pH Ur Specific [place] Urine Protein Urine Glucose (UA) Urine Ketones Urine Blood Urine Nitrite Urine Bilirubin Urine Urobilinogen (Auto) Ur Leukocyte Esterase Urine RBC Urine WBC Ur Squamous Epith Cells Urine Bacteria Quality Measures Quality Measures VTE prophylaxis Advance care planning discussed with:: patient and child Assessment & Plan Assessment Current Active Medications: Generic Name Dose Route Start Last Admin Trade Name Freq PRN Reason Stop Dose Admin Acetaminophen 650 mg 08/31/24 22:52 Acetaminophen 325 Mg Tablet PO 09/30/24 22:51 Q6H PRN PAIN SCALE 1-3 (mild Acetaminophen 650 mg 09/02/24 09:41 Acetaminophen 325 Mg Tablet PO 09/30/24 22:51 Q6H PRN Fever >100.4 Aspirin 81 mg 09/01/24 21:00 09/01/24 20:27 Aspirin Ec 81 Mg Tabec PO 10/01/24 20:59 81 mg HS HUMBERTO Administration Atorvastatin Calcium 80 mg 09/01/24 21:00 09/01/24 20:27 Atorvastatin Calcium 20 Mg Tablet PO 09/30/24 22:59 80 mg HS HUMBERTO Administration Dextrose 25 ml 08/31/24 23:01 Dextrose 50%-Water Inj 50 Ml Syringe IV 09/30/24 23:00 Q15MIN PRN BG 50-70 responsive npo pt Dextrose 50 ml 08/31/24 23:01 Dextrose 50%-Water Inj 50 Ml Syringe IV 09/30/24 23:00 Q15MIN PRN BG <50 OR BG <70 & pt unresponsive Finasteride 5 mg 09/01/24 09:00 09/02/24 09:29 Finasteride 5 Mg Tablet PO 10/01/24 08:59 5 mg QDAY HUMBERTO Administration Glucagon 1 mg 08/31/24 23:01 Glucagon Inj 1 Mg Vial IM Q15MIN PRN BG <70, and no IV access Heparin Sodium/Dextrose 25,000 unit in 250 mls @ 7.62 mls/hr 08/31/24 23:15 09/02/24 10:55 Heparin In D5w Ivpb IV 09/14/24 23:14 0 units/kg/hr .Q24H HUMBERTO 0 mls/hr Titration Protocol 12 UNITS/KG/HR Ceftriaxone Sodium/Dextrose 1 gm in 50 mls @ 100 mls/hr 09/02/24 07:45 09/02/24 09:30 Rocephin/D5w 1gm Iv Premix IV 09/09/24 07:44 100 mls/hr QDAY HUMBERTO Administration Insulin Human Lispro 0 unit 09/01/24 17:00 09/02/24 07:24 Insulin Lispro (Admelog) 1 Unit/0.01 Ml Unit SC 04/22/25 16:59 Not Given ACHS HUMBERTO Protocol Metoprolol Succinate 37.5 mg 09/01/24 09:00 09/02/24 09:29 Metoprolol Succinate Xl 25 Mg Tabcr PO 10/01/24 08:59 37.5 mg QDAY HUMBERTO Administration Sennosides 1 tab 09/02/24 16:00 Senna Tablet PO 10/02/24 15:59 QDAY HUMBERTO Protocol Tamsulosin HCl 0.4 mg 09/01/24 21:00 09/01/24 20:27 Tamsulosin Hcl 0.4 Mg Capsule PO 10/01/24 20:59 0.4 mg HS HUMBERTO Administration Trazodone HCl 50 mg 08/31/24 23:00 09/01/24 20:27 Trazodone Hcl 50 Mg Tablet PO 09/30/24 22:59 50 mg HS HUMBERTO Administration Plan 78-year-old male with significant past medical history of hypertension, diabetes mellitus type 2, coronary artery disease s/p stents on July 2023, peripheral arterial disease, BPH presented to ED with chief complaint of generalized weakness and SOB. Rehabilitation Program Manager Dr. Mcdaniel once consulted, recommended heparin drip and admitting the patient to telemetry unit for further management of NSTEMI. #NSTEMI type I, ruled out #Coronary artery disease, stable Patient follows Dr. Mcdaniel outpatient and has had 2 stents placed on July 2023 Patient presented with generalized weakness and SOB which occurred while he was attempting to ambulate at home In the ED, EKG revealed [address] segment depression over V2 and V3, but patient denied any chest pain or chest pressure Chest x-ray revealed no pneumonia or pulmonary edema, head CT was negative for acute hemorrhage, mass effect or midline shift, CT abdomen pelvis revealed gastritis pattern, moderate bilateral renal parenchymal eschar formation with perinephric stranding, significant prostatomegaly, minimal thickening of the urinary bladder wall. Chest CTA revealed no thoracic aortic artery aneurysm or dissection, negative for pulmonary artery emboli Patient's troponin went from 0.784-1.098 to 0.687 to 0.607 Echo shows Normal LV function LVEF of 60%, rest of images not well-seen Patient completed left heart catheterization with Dr. Mcdaniel on 09/02 there was no active disease noted Plan: Continue aspirin 81 Mg and atorvastatin 80 Mg daily at night Continue metoprolol succinate 37.5 Mg daily We will consider restarting Plavix Rehabilitation Program Manager Dr. Mcdaniel consulted, appreciate recommendations Keep potassium greater than 4 and magnesium greater than 2 #UTI Patient does state that he has some urinary retention at home likely secondary to the prostatomegaly seen on CT Patient denies having any fever/chills, dysuria, lower back pain or hematuria at this time On CT abdomen pelvis; moderate bilateral renal parenchymal eschar formation with perinephric stranding, significant prostatomegaly, minimal thickening of the urinary bladder wall UA shows turbid urine with glucosuria, hematuria +1, positive nitrites, positive leukocyte esterase, pyuria and 3+ bacteria Urine cultures are positive for GNR Plan: Continue IV antibiotics, Rocephin 1 g daily #JT, improving Likely prerenal in the setting of possible poor oral intake Baseline creatinine is 0.7, presented with creatinine of 1.1 Patient received 1 L of normal saline bolus in the ED Plan: Avoid nephrotoxins Renally dose medications Follow-up with morning labs #Bax-krouijb-fqrdrpyqv type 2 diabetes A1c of 9.4 Presented with blood sugar of 218 and BHB 2.8 with anion gap of 11 Patient is taking 1 g metformin daily along with Jardiance 10 mg daily at home Plan: SSI #Primary hypertension Currently blood pressure is under control Plan: Continue home dose of metoprolol succinate and 37.5 Mg daily #Mild normocytic anemia Presented with hemoglobin of 10.8, MCV 92 Iron of 59, TIBC 176, iron saturation 33%, unsaturated iron binding of 117 and ferritin 219 Reticulocyte count within normal parameters Peripheral smear shows moderate normocytic anemia without hemolysis but hermes cells are present Vit B12 of 128 LOW, folate wnl Plan: Vitamin B12 level supplementation, 1000 mcg IM x 1 #Mild thrombocythemia #Mild leukocytosis Likely secondary to hemoconcentration and also reactive Presented with platelet of 567 and white count of 11.9 Plan: Continue monitor with morning labs #Subcentimeter pulmonary nodules Patient has history of smoking CT shows stable pulmonary nodules Plan: Low-dose CT reimaging when appropriate #Multiple bilateral subcentimeter nonobstructive renal calculi follow-up outpatient with repeat imaging if appropriate #L5-S1 disc bulges Lumbar MRI revealed L5-S1 6 mm central and right foraminal disc bulge producing moderate right L5 ganglionic compression. Plan: Follow-up as an outpatient basis with orthopedics Hospital Management: Lines: PIV Diet: Carb consistent low, cardiac, dysphagia II Bowel: Senna GI prophylaxis: Not needed DVT prophylaxis: SCD Dispo: Completed left heart cath on 09/02, IV antibiotics for UTI Code: Full Patient seen and examined with attending Dr. Day and senior resident Dr. Cheryl Perez, PGY-1 -- ATTESTATION: I saw and examined the patient this morning, and I agree with current management stated by the resident. Will continue to monitor patient during their stay. Patient is a 78-year-old male with past medical history hypertension, type 2 diabetes, coronary artery disease status post stents in July 2023, PAD, BPH who was admitted on 08/31/2024 due to an episode of weakness and shortness of breath. Patient was found to have NSTEMI type I with elevated troponins and ST segment depressions on leads V2 and V3. Patient was started on heparin drip as per ACS protocol and cardiology was consulted. Patient was also found to have a mild UTI and JT during admission. For also controlling his insulin and hypertension. Patient was scheduled to get catheterized today with cardiology. Will follow-up on the results. Disclaimer: Despite multiple revisions, due to the dictation software being used, the document bellow may not be free of grammatical errors including phonetic/typographic errors. However, this does not deter from our commitment to providing health care in the patient's best interest in mind. Dr. Mitchel Luna, PGY-3 Attending Provider Attestation/Addendum Hannah Martinez, , attest that I was physically present for the baires portions of the service and evaluated the patient with the resident and I reviewed and discussed the case with the resident and agree with the resident's findings and plans of care as documented above Patient seen and evaluated this AM. He is frustrated that he cannot eat. Echocardiogram was done this AM and patient to be taken to cardiac cath in the afternoon. Patient remains NPO due to cardiac cath. He denies any chest pain or shortness of breath. UA is positive for GNR, pending final cultures and sensitivities.
--- NOTE | 2024-09-02 13:27 | PD.RESPRO ---
Documentation for date of: 09/02/24 Subjective Subjective Interval history: z Exam Vital Signs Temp Pulse Resp BP Pulse Ox O2 Del Method 97.5 F 72 16 144/87 H 100 Room Air 09/02/24 12:00 09/02/24 13:14 09/02/24 13:14 09/02/24 13:14 09/02/24 13:14 09/02/24 13:14 Objective Labs 09/02/24 05:37 09/02/24 05:37 Labs: Laboratory Results - last 24 hr 09/01/24 09/01/24 09/01/24 04:20 12:34 13:24 WBC RBC Hgb Hct MCV MCH MCHC RDW Std Deviation Plt Count Neut % (Auto) Lymph % (Auto) [place] % (Auto) Eos % (Auto) Baso % (Auto) Neut # (Auto) Lymph # (Auto) [place] # (Auto) Eos # (Auto) Baso # (Auto) Immature Gran # (Auto) Absolute Nucleated RBC Immature Gran % Nucleated RBC % Smear Path Review PT INR APTT 66.1 H D Sodium Potassium Chloride Carbon Dioxide Anion Gap BUN Creatinine Estim Creat Clear Calc eGFR BUN/Creatinine Ratio Glucose Calculated Osmolality Calcium Corrected Calcium Phosphorus Magnesium Total Bilirubin AST ALT Alkaline Phosphatase Total Protein Albumin Globulin Albumin/Globulin Ratio Vitamin B12 128 L Folate 8.97 Ur Collection Type Clean Catch Urine Color Lt-Yellow Urine Clarity Turbid A Urine pH 6.0 Ur Specific [place] 1.026 Urine Protein Trace Urine Glucose (UA) 4+ A Urine Ketones 1+ A Urine Blood 1+ A Urine Nitrite Positive Urine Bilirubin Negative Urine Urobilinogen (Auto) Negative Ur Leukocyte Esterase Positive Urine RBC 7 H Urine WBC 154 H Ur Squamous Epith Cells < 1 Urine Bacteria 3+ A 09/01/24 09/02/24 21:08 05:37 WBC 9.3 RBC 2.79 L Hgb 9.1 L Hct 26.2 L MCV 94 MCH 32.6 MCHC 34.7 RDW Std Deviation 50.0 H Plt Count 480 H Neut % (Auto) 78 Lymph % (Auto) 14 [place] % (Auto) 5 Eos % (Auto) 1 Baso % (Auto) 1 Neut # (Auto) 7.2 Lymph # (Auto) 1.3 [place] # (Auto) 0.5 Eos # (Auto) 0.1 Baso # (Auto) 0.1 Immature Gran # (Auto) 0.09 H Absolute Nucleated RBC 0.00 Immature Gran % 1 H Nucleated RBC % 0 Smear Path Review Sent to Pathologist PT 11.5 INR 1.1 APTT 52.4 H D 46.9 H Sodium 139 Potassium 4.6 D Chloride 108 H Carbon Dioxide 19.0 L Anion Gap 12 BUN 10 Creatinine 0.9 Estim Creat Clear Calc 57.7 L eGFR > 60 BUN/Creatinine Ratio 11 L Glucose 158 H D Calculated Osmolality 279 Calcium 8.7 Corrected Calcium 9.3 Phosphorus 3.0 Magnesium 1.8 Total Bilirubin 0.4 AST 24 ALT 14 Alkaline Phosphatase 80 Total Protein 6.0 Albumin 3.2 L Globulin 2.8 Albumin/Globulin Ratio 1.1 L Vitamin B12 Folate Ur Collection Type Urine Color Urine Clarity Urine pH Ur Specific [place] Urine Protein Urine Glucose (UA) Urine Ketones Urine Blood Urine Nitrite Urine Bilirubin Urine Urobilinogen (Auto) Ur Leukocyte Esterase Urine RBC Urine WBC Ur Squamous Epith Cells Urine Bacteria Quality Measures Quality Measures VTE prophylaxis Assessment & Plan Assessment Current Active Medications: Generic Name Dose Route Start Last Admin Trade Name Kraigq PRN Reason Stop Dose Admin Acetaminophen 650 mg 08/31/24 22:52 Acetaminophen 325 Mg Tablet PO 09/30/24 22:51 Q6H PRN PAIN SCALE 1-3 (mild Acetaminophen 650 mg 09/02/24 09:41 Acetaminophen 325 Mg Tablet PO 09/30/24 22:51 Q6H PRN Fever >100.4 Aspirin 81 mg 09/01/24 21:00 09/01/24 20:27 Aspirin Ec 81 Mg Tabec PO 10/01/24 20:59 81 mg HS HUMBERTO Administration Atorvastatin Calcium 80 mg 09/01/24 21:00 09/01/24 20:27 Atorvastatin Calcium 20 Mg Tablet PO 09/30/24 22:59 80 mg HS HUMBERTO Administration Dextrose 25 ml 08/31/24 23:01 Dextrose 50%-Water Inj 50 Ml Syringe IV 09/30/24 23:00 Q15MIN PRN BG 50-70 responsive npo pt Dextrose 50 ml 08/31/24 23:01 Dextrose 50%-Water Inj 50 Ml Syringe IV 09/30/24 23:00 Q15MIN PRN BG <50 OR BG <70 & pt unresponsive Finasteride 5 mg 09/01/24 09:00 09/02/24 09:29 Finasteride 5 Mg Tablet PO 10/01/24 08:59 5 mg QDAY HUMBERTO Administration Glucagon 1 mg 08/31/24 23:01 Glucagon Inj 1 Mg Vial IM Q15MIN PRN BG <70, and no IV access Ceftriaxone Sodium/Dextrose 1 gm in 50 mls @ 100 mls/hr 09/02/24 07:45 09/02/24 09:30 Rocephin/D5w 1gm Iv Premix IV 09/09/24 07:44 100 mls/hr QDAY HUMBERTO Administration Insulin Human Lispro 0 unit 09/01/24 17:00 09/02/24 11:58 Insulin Lispro (Admelog) 1 Unit/0.01 Ml Unit SC 10/01/24 16:59 Not Given ACHS HUMBERTO Protocol Metoprolol Succinate 37.5 mg 09/01/24 09:00 09/02/24 09:29 Metoprolol Succinate Xl 25 Mg Tabcr PO 10/01/24 08:59 37.5 mg QDAY HUMBERTO Administration Sennosides 1 tab 09/02/24 16:00 Senna Tablet PO 10/02/24 15:59 QDAY HUMBERTO Protocol Tamsulosin HCl 0.4 mg 09/01/24 21:00 09/01/24 20:27 Tamsulosin Hcl 0.4 Mg Capsule PO 10/01/24 20:59 0.4 mg HS HUMBERTO Administration Trazodone HCl 50 mg 08/31/24 23:00 09/01/24 20:27 Trazodone Hcl 50 Mg Tablet PO 09/30/24 22:59 50 mg HS HUMBERTO Administration
--- NOTE | 2024-09-02 14:00 | PC.NURSE ---
FEMORAL SHEATH (VENOUS ACCESS) TO THE LEFT GROIN REMOVED AT 1325. MANUAL PRESSURE APPLIED FOR 20 MINUTES UNTIL HEMOSTASIS ACHIEVED. PATIENT TOLERATED PROCEDURE WELL WITHOUT COMPLICATIONS. SURGICAL SITE ASYMPTOMATIC, NO ACTIVE BLEEDING, NO HEMATOMA NOTED ON RIGHT GROIN AREA. RIGHT FEMORAL PULSE NOTED WITH NO CHANGES IN STREGTH AND QUALITY, LEFT DORSALIS PEDIS PULSE NOTED WITH NO CHANGES STRENGTH AND QUALITY. DISTAL CAPPILARRY REFILL <3 SECONDS (Baseline, Right Toes). NO NOTED CHANGES IN COLOR OR TEMPERATURE ON LEFT LOWER EXTREMITY. PATIENT DENIES GENERAL AND LOCALIZED PAIN TO LEFT EXTREMITY BUT HAS CHRONIC PAIN IN HIS RIGHT EXTREMITY.. NO TINGLING OR NUMBNESS FELT TO LEFT LOWER EXTREMITY. SURGICAL SITE COVERED WITH GAUZE AND TAGADERM DRESSING, WHICH REMAIN DRY AND INTACT. WILL CONTINUE TO MONITOR.
[2024-09-02] MEDS: MORPHINE SULF INJ 10 MG/ML VIAL 2 MG IVP (14:02)
--- NOTE | 2024-09-02 15:06 | ESOP_ITS ---
RE: SOHAIL BOLAND : [id number] DATE OF OPERATION: 09/02/2024 PROCEDURE PERFORMED: 1. Diagnostic left heart cardiac catheterization, selective coronary angiogram, left ventricular angiogram, CPT 48506. 2. Ultrasound-guided access, left femoral artery. 3. Conscious sedation for 30-minute duration. 4. Ileofemoral angiogram. DIAGNOSES: Acute non-ST segment elevation myocardial infarction (NSTEMI), acute coronary syndrome, known CAD, stent placement. HISTORY AND INDICATIONS: The patient is a 78-year-old male with history of hypertension, peripheral artery disease, stent placement in RCA, PDA, PL branches a year ago, came to the hospital with severe chest pain, shortness of breath, continues to have chest pain. EKG showed nonspecific changes. Enzymes were elevated with delta troponin and coronary angiogram was recommended to assess the patient's patency of the coronary arteries and stents and possible PCI. DESCRIPTION OF PROCEDURE: The patient was brought to cardiac catheterization laboratory where he was given total of 2 mg Versed and 75 mcg of fentanyl for sedation. The left femoral approach was taken. The right radial pulse was very weak and artery is too small to cannulate. Hence, left femoral approach was taken. Right femoral artery, there was a stent in the external iliac artery and also fem-pop bypass. Hence, it was not used for access. Left femoral artery was cannulated by micropuncture technique. Ultrasound guidance was used. A 5 [place] was introduced. Selective right and left carotid angiogram was performed by FR4, FL4, 5-[place] diagnostic catheter. Left heart catheterization, left femoral angiogram performed by FR4 diagnostic catheter. The patient tolerated the procedure well. No complications. Iliofemoral angiogram was performed. Subsequently, manual compression was obtained. The patient had no complications. Cardiac catheterization showed following findings: HEMODYNAMICS: Left ventricular pressure 140/12, aortic pressure 140/100. No gradient across the aortic valve. Left ventricular angiogram showed normal left ventricular wall motion, ejection fraction of 70%. Coronary artery angiogram showed following findings. The right coronary artery is large and dominant, showed mild disease in the proximal mid segment. Distal right coronary artery is patent. PDA, PL branches stents are patent. No stenosis. LEFT CORONARY SYSTEM: Left main coronary artery showed calcification. No significant stenosis. Left anterior descending artery showed calcification, proximal and mid segments. Distal left anterior descending artery showed a 40% to 50% diameter stenosis, small vessel. Last 5 cm of the vessel is small and diffusely diseased, not a suitable candidate for PCI, not necessary. Left circumflex artery nondominant showed calcification. No significant stenosis. SUMMARY OF FINDINGS AND SUGGESTIONS: 1. Widely patent stent involving the right coronary artery PDA, PL branches. 2. Moderate disease of distal left anterior descending artery to be managed medically. 3. Calcification of LAD, left main and circumflex arteries. No significant obstructive disease. 4. Normal left ventricular function. RECOMMENDATIONS: The patient can be reassured with these findings. Recommend to continue medical management for now and can be discharged home later today after 4 hours following the procedure in the afternoon to have followup in one week in my office. DT: 13:46:43 TT: 15:04:00 Ref: [id number] - TID: [id number]
--- NOTE | 2024-09-02 15:37 | PC.NURSE ---
PATIENT IS BACK FROM CATHLAB, PT AWAKE, ALERT, AND ORIENTED TO SELF AND PLACE. PATIENT DENIES PAIN, NO BLEEDING, NO HEMATOMA NOTED, DRESSING TO LEFT GROIN IS CLEAN, DRY AND INTACT, WITH STRONG PALPABLE PULSE. LEFT PEDAL PULSE WEAK, CHECKED WITH ULTRASOUND DOPPLER CONFIRMED PULSE PRESENT. PATIENT INSTRUCTED TO CONTINUE LAY FLAT AND TO KEEP LEFT LEG STRAIGHT, PATIENT VERBALIZED UNDERSTANDING.
--- NOTE | 2024-09-02 15:56 | PC.SS ---
Follow up note: Echo needs to be read.
[2024-09-02] MEDS: CYANOCOBALAMIN INJ 1,000 mCg/ML VIAL 1000 MCG IM (17:49)
[2024-09-02] MEDS: SENNA TABLET 1 TAB PO (17:49)
[2024-09-02] MEDS: TAMSULOSIN HCL 0.4 MG CAPSULE PO (20:25)
[2024-09-02] MEDS: ASPIRIN EC 81 MG TABEC PO (20:25)
[2024-09-02] MEDS: traZODone HCL 50 MG TABLET PO (20:25)
[2024-09-02] MEDS: ATORVASTATIN CALCIUM 20 MG TABLET 80 MG PO (20:25)
[2024-09-02] MEDS: INSULIN LISPRO (AdmeLOG) 1 UNIT/0.01 ML UNIT SC (20:27)
--- NOTE | 2024-09-02 22:52 | ECHO_ITS ---
Transthoracic Echo Report Ht (in): 69 Wt (lb): 135 Exam Location: [facility] Status: Inpatient Communications Systems Engineer: DULCE MARIA Aponte^^^^ Indications: Procedure Performed: BP: 121 / 74 HR: 83 Technical Quality: Very technically difficult study MEASUREMENTS (Male / Female) Normal Values 2D ECHO LV Diastolic Diameter PLAX 3.1 cm 4.2 - 5.9 / 3.9 - 5.3 cm LV Systolic Diameter PLAX 2.2 cm IVS Diastolic Thickness 1.0 cm 0.6 - 1.0 / 0.6 - 0.9 cm LVPW Diastolic Thickness 0.7 cm 0.6 - 1.0 / 0.6 - 0.9 cm LV Relative Wall Thickness 0.5 LVOT Diameter 2.2 cm Aortic Root Diameter 3.6 cm FINDINGS Left Ventricle The left ventricular systolic function is normal. Right Ventricle The right ventricle not well visualized. Left Atrium Left atrium not well visualized. Right Atrium Right atrium is not well visualized. Atrial Septum The interatrial septum not well visualized. Aorta The aortic root and proximal ascending aorta are not well visualized. Mitral Valve The mitral valve is not well visualized. Aortic Valve The aortic valve is not well visualized. Tricuspid Valve The tricuspid valve is not well visualized. Pulmonic Valve The pulmonic valve is not well visualized. Vessels Inferior vena cava not well visualized. Pericardium The pericardium is normal to two-dimensional and color flow Doppler interrogation. CONCLUSIONS indication: NSTEMI Very TDS cannot see many diagnostic images. Normal LV funtion LVEF 60% Kellie Burns (Electronically Signed) Final Date: 02 September 2024 16:32
[2024-09-03] VITALS (8 sets, daily range): BP systolic 115–152; BP diastolic 61–78; PULSE 70–95; RESP 11–99; TEMP 36.1–36.7; O2SAT 98–100
[2024-09-03 05:52] LABS: Basophils % (Auto) 0 % (0-2.5); Eosinophils # (Auto) 0.1 Thou/mm3 (0.0-0.5); Eosinophils % (Auto) 1 % (0-10); Hematocrit 25.2 % (41.0-53.0); Immature Granulocytes % (Auto) 1 % (0-0); Immature Granulocytes Auto 0.06 Thou/mm3 (0.00-0.00); Lymphocytes # (Auto) 0.9 Thou/mm3 (1.0-4.8); Lymphocytes % (Auto) 10 % (10-50); Mean Corpuscular HGB Conc 34.9 g/dl (31.0-37.0); Mean Corpuscular Volume 94 fL (80-100); Monocytes # (Auto) 0.5 Thou/mm3 (0.0-0.8); Monocytes % (Auto) 6 % (0-12); Neutrophils # (Auto) 7.8 Thou/mm3 (1.8-7.7); Neutrophils % (Auto) 83 % (37-80); Nucleated Red Blood Cell % 0 /100 WBC (0); Platelet Count 561 Thou/mm3 (140-440); RDW Standard Deviation 51.3 fL (35.1-43.9); Red Blood Count 2.67 Miln/mm3 (4.50-5.90); White Blood Count 9.4 Thou/mm3 (3.8-10.6)
[2024-09-03 06:01] LABS: Alanine Aminotransferase 14 U/L (10-49); Albumin, Serum 3.2 gm/dL (3.4-4.8); Albumin/Globulin Ratio 1.2 (1.2-2.2); Alkaline Phosphatase 80 U/L (46-116); Anion Gap 9 (7-16); Aspartate Amino Transferase 17 U/L (0-34); BUN/Creatinine Ratio 14 Ratio (12-20); Bilirubin,Total 0.5 mg/dL (0.3-1.2); Blood Urea Nitrogen 11 mg/dL (9-23); Calcium 8.2 mg/dL (8.3-10.6); Calcium (Corrected) 8.8 mg/dL (8.5-10.1); Carbon Dioxide 20.9 mMol/L (20.0-31.0); Chloride 107 mMol/L (98-107); Creatinine (Component) 0.8 mg/dL (0.6-1.3); Globulin 2.6 gm/dL (2.3-3.5); Glucose 162 mg/dL (74-106); Magnesium 1.9 mg/dL (1.6-2.6); Osmolality,Calculated 277 (275-295); Phosphorous 3.5 mg/dL (2.4-5.1); Potassium 4.1 mMol/L (3.4-5.1); Sodium 137 mMol/L (136-145); Total Protein 5.8 gm/dL (5.7-8.2); eGFR > 60 See Note
[2024-09-03 06:02] LABS: Hemoglobin 8.8 g/dL (13.5-16.0)
[2024-09-03] MEDS: INSULIN LISPRO (AdmeLOG) 1 UNIT/0.01 ML UNIT SC ×2 (07:07→11:25)
[2024-09-03] MEDS: FINASTERIDE 5 MG TABLET PO (09:09)
[2024-09-03] MEDS: POLYETHYLENE GLYCOL 17 GM PACKET PO (09:09)
[2024-09-03] MEDS: METOPROLOL SUCCINATE XL 25 MG TABCR 37.5 MG PO (09:09)
[2024-09-03] MEDS: CLOPIDOGREL BISULFATE 75 MG TABLET PO (09:10)
[2024-09-03] MEDS: SENNA TABLET 1 TAB PO (09:10)
[2024-09-03] MEDS: cefTRIAXone/D5w 1gm IV premix 1 GM/50 ML BAG IV (09:10)
--- NOTE | 2024-09-03 09:41 | PC.SS ---
Update: Plan is for the patient to d/c home today.
--- NOTE | 2024-09-03 10:47 | CHAP ---
Patient was visited by a Spiritual Care Volunteer on 09/03/2024 between 0910 and 6823 and received comfort, encouragement and/or prayer.
--- NOTE | 2024-09-03 13:06 | ESDS_ITS ---
<Statement entered by Rosemary Moody MD - 09/04/24 16:22> Patient was seen and examined by me personally. I have reviewed the below documentation by the team resident and agree with its findings with any exceptions as below. Discharge plan was discussed with the attending, Dr. Day. Rosemary Moody, PGY-2 <Statement entered by Hannah Day DO - 09/04/24 08:25> I, Hannah Day DO, attest that I was physically present for the baires portions of the service and evaluated the patient with the resident and I reviewed and discussed the case with the resident and agree with the resident's findings and plans of care as documented above Planned Discharge Date 09/03/24 DS: Providers Provider Date of admission: 08/31/24 22:52 Primary care physician: Carin Cleaning MD Admitting Provider: Donis Bains MD Attending Provider on Admission: Hannah Day DO Consults: 08/31/24 22:10 Consult to Cardiology Stat Comment: Consulting Provider: Dalila Mcdaniel Instructions: NSTEMI 08/31/24 23:06 Consult to Cardiology Stat Comment: NSTEMI Consulting Provider: Dalila Mcdaniel 09/02/24 09:35 Referral Physical Therapy Routine Comment: Physician Instructions: Attending Provider on DC: Xavier Perez MD Discharging Provider: Xavier Perez MD DS: Diagnosis Problem List Completed Was Problem List Reviewed/Reconciled?: Yes Hospital Course Hospital Course Hospital course: 78-year-old male with past medical history of hypertension, type 2 diabetes, coronary artery disease status post stent placement in July 2023, peripheral artery disease, BPH presented to the ED on 08/31 with generalized weakness and shortness of breath. In the ED, patient was hypotensive 92/69, tachycardic with a heart rate of 127, saturating 99 on room air. Pertinent lab findings included WBC of 11.9, hemoglobin 10.8, troponin of 0.106 that trended up to 0.784, EKG showed mild ST segment depression in V2 and V3 with sinus tachycardia and chest x-ray showed no active disease. Head CT was ordered and was negative for any acute hemorrhage or mass effect. CT abdomen pelvis showed gastritis pattern, moderate bilateral renal parenchymal perinephric stranding, significant prostatomegaly, minimally thickened urinary bladder wall. Chest CTA showed no thoracic artery aneurysm or dissection, negative for pulmonary artery emboli, multiple by lateral subcentimeter nonobstructive renal calculi. Lumbar MRI did show L5-S1 6 mm central and right foraminal disc bulge. Patient was given aspirin along with heparin drip for possible ACS and cardiology was consulted for recommendations. Patient was seen subsequently on the following days and did not have any active chest pain. There was suspicion for possible UTI based off imaging findings as such UA and urine cultures were ordered which did confirm presence of UTI. Echo was ordered to assess the patient's cardiac function which showed normal LV function with LVEF of 60%. On 09/02 patient completed a left heart catheterization which showed widely patent stent involving the right coronary artery PDA, PL branches, moderate disease of the distal left anterior descending and calcification of the LAD left main and circumflex arteries but no significant obstructive disease. Patient significantly improved and was at his current baseline; moreover, he will be discharged with the following strict instructions. Please take cefuroxime 250mg by mouth twice a day for 5 days for UTI Follow-up with Dr. Mcdaniel, Cardiology, within 1 week and restart taking Plavix 75mg a day Follow-up with your PCP within 1-2 weeks. Please obtain referral for urology. Stop sodium tablets until further follow up with your PCP and repeat chemistry panel Ask your PCP if you should restart Jardiance since you developed a UTI Ask your PCP to follow-up with repeat imaging for subcentimeter pulmonary nodules seen on CT Ask your PCP to repeat a CBC/CMP for thrombocytosis likely reactive as noted by peripheral blood smear/pathology Continue taking all your other home medications as prescribed If your symptoms worsen or if you develop new chest pain, shortness of breath, dizziness or bleeding - please come back to the ED immediately. Hospital Diagnosis: #NSTEMI type I, ruled out #Coronary artery disease, stable #UTI #JT, improving #Ebh-[id number]-fhutyanpv type 2 diabetes #Primary hypertension #Mild normocytic anemia #Mild thrombocythemia #Mild leukocytosis #Subcentimeter pulmonary nodules #Multiple bilateral subcentimeter nonobstructive renal calculi #L5-S1 disc bulges Xavier Perez, PGY-1 Status at Discharge Overall status at discharge: patient is progressing back to baseline Time Spent with Patient Time attestation: Total time spent providing and/or coordinating discharge services: 45 minutes Time spent: Greater than 30 minutes Exam Vital Signs Temp Pulse Resp BP Pulse Ox O2 Del Method 97.3 F 71 20 115/66 99 Room Air 09/03/24 12:00 09/03/24 12:00 09/03/24 12:00 09/03/24 12:00 09/03/24 12:00 09/03/24 12:00 Narrative Exam Physical Exam: GENERAL: Awake, answering questions appropriately, appears stated age HEENT: NC/AT. Moist mucosa. PERRLA/EOMI. Poor dentition CARDIO: Heart RRR, no obvious murmurs, no JVD. PULM: No coughing or visible SOB. Lungs CTA B/L. GI: Abdomen soft, NT/ND except for mild epigastric tenderness noted, +BS. No guarding or rebound tenderness. SKIN/MSK/EXT: No wounds/discoloration/rashes/edema/amputations. +Pedal pulses present B/L. NEURO: Oriented x3, Moves extremities x4, no focal neurologic deficits Discharge Plan Plan Patient Disposition: HOME (Self Care) Patient condition on transfer: Stable Care Plan Goals: Please take cefuroxime 250mg by mouth twice a day for 5 days for UTI Follow-up with Dr. Mcdaniel, Cardiology, within 1 week and restart taking Plavix 75mg a day Follow-up with your PCP within 1-2 weeks. Please obtain referral for urology. Stop sodium tablets until further follow up with your PCP and repeat chemistry panel Ask your PCP if you should restart Jardiance since you developed a UTI Ask your PCP to follow-up with repeat imaging for subcentimeter pulmonary nodules seen on CT Ask your PCP to repeat a CBC/CMP for thrombocytosis likely reactive as noted by peripheral blood smear/pathology Continue taking all your other home medications as prescribed If your symptoms worsen or if you develop new chest pain, shortness of breath, dizziness or bleeding - please come back to the ED immediately. Prescriptions/Referrals Prescriptions/Med Rec: New cefuroxime axetil 250 mg tablet 250 mg PO BID 5 Days Qty: 10 0RF Continued tamsulosin [Flomax] 0.4 MG capsule,extended release 24hr 0.4 mg PO QDAY Qty: 0 finasteride 5 mg tablet 5 mg PO QDAY Patient Comments: TAKE ONE TABLET BY MOUTH EVERY DAY FOR PROSTATE multivitamin Tablet 1 tab PO QAM Patient Comments: TAKE ONE TABLET BY MOUTH EVERY DAY IN THE MORNING metformin 1,000 mg tablet 1 tab PO BID Patient Comments: TAKE ONE TABLET BY MOUTH TWICE DAILY docusate sodium 100 mg capsule 1 cap PO BID Patient Comments: TAKE ONE CAPSULE BY MOUTH TWICE DAILY FOR CONSTIPATION Dupixent Syringe 300 mg/2 mL syringe 2 ml SUBCUT PRN PRN (Reason: Pain) Patient Comments: INJECT ONE PEN SUBCUTANEOUSLY EVERY TWO WEEKS Rx Instructions: [id number] clopidogrel 75 mg tablet 75 mg PO DAILY Patient Comments: TAKE ONE TABLET BY MOUTH EVERY DAY FOR CIRCULATION atorvastatin 80 mg tablet 80 mg PO DAILY Patient Comments: TAKE ONE TABLET BY MOUTH EVERY DAY FOR CHOLESTEROL trazodone 50 mg tablet 50 mg PO DAILY Patient Comments: TAKE ONE TABLET BY MOUTH AT BEDTIME FOR SLEEP metoprolol succinate 25 mg tablet extended release 24 hr 37.5 mg PO DAILY Patient Comments: TAKE 1 AND 1/2 TABLETS BY MOUTH EVERY DAY FOR BLOOD PRESSURE cetirizine 10 mg tablet 10 mg PO DAILY Patient Comments: TAKE ONE TABLET BY MOUTH EVERY DAY FOR ALLERGY Held sodium chloride 1,000 mg tablet,soluble 1 tab PO BID Hold Instructions: Resume on 09/10/24. Hold until repeat CMP in 1 week Patient Comments: TAKE ONE TABLET BY MOUTH TWICE DAILY Discontinued Brilinta 90 mg Tablet 90 mg PO BID Qty: 60 2RF atorvastatin 40 mg tablet 40 mg PO QPM Qty: 30 0RF Jardiance 10 mg tablet 10 mg PO DAILY Patient Comments: TAKE ONE TABLET BY MOUTH EVERY DAY FOR DIABETES Referrals: Dalila Mcdaniel MD [Physician] - Carin Cleaning MD [Primary Care Provider] - Patient/Caregiver Discharge Instructions Discharge Activity: activity as tolerated Education Materials: Having Cardiac Catheterization, Cardiac Catheterization Dc, Heart Attack Dc, Preventing Surgical Site Infections, Procedural Sedation Print Language: Moroccan Activity Restrictions/Additional Instructions: Please call to Schedule a follow up appointment with Dr. Mcdaniel, (Cardiac/Vascular Sonographer), in his office within one week upon discharge Address: [address] [place] [address]. Please call to schedule a follow up appointment with your primary care doctor 1- 2 weeks after discharge so he/she can make further recommendations about your overall health condition. DO NOT drive or operate any motor vehicle, heavy equipment or machinery in the next 24 hours. DO NOT perform any activity that requires you to be fully alert in the next 24 hour. DO NOT sign any documentation in the next 24 hours that requires a full understanding of what you are signing for. Do not perform any strenuous physical activity in the next 5 days. Avoid activities that require bending at your waist in the next 5 days. Avoid lifting objects 5 pounds or heavier in the next 5 days. Do not strain your bowel. If you experience constipation, drink plenty of fluids, especially water, if not contraindicated by your doctor. In addition, add foods rich in fiber. Should you experience constipation, talk to your doctor about other options that might help you alleviate it. Keep your blood pressure under control. If you take blood pressure medication, continue to take it if not contraindicated by your doctor. Doing so, helps to prevent post-complications such as bleeding. Take your new/previous medication as directed by the doctor. If there is no changes, continue to take medication at your usual time. After 5 days, start increasing the level of physical activity gradually for the subsequent 5 days. You can resume your shower routine tomorrow but keep your dressing clean and dry. Remove the dressing placed on the surgical incision 48 hours after discharge. After removing your dressing, you can gently clean your surgical site with soap and water and pad dry it. DO NOT rub site to prevent complication such as bleeding. DO NOT apply any lotions, creams, or powders on the surgical site until your skin completely heels (5 days or more). Should you experience any type of complications on your extremity such as pain, change in color, temperature, a bruise that increases in size and color at the surgical site (Groin Area), a lump (Hard or soft) that develops and increases in size at the surgical site (Groin Area), numbness, or changes in sensation, Chest pain, or shortness of breath; PLEASE GO TO THE NEAREST EMERGENCY ROOM IMMEDIATELY. Look out for signs of infection such as tenderness, redness, or drainage to your surgical site (Groin Area); if any, report them to your primary care doctor immediately. Should you have any other questions or concerns on regards today?s procedure; feel free to contact us to Change Control Specialist Department . It is important to follow a heart healthy diet. Avoid foods saturated with fat, food and drinks with added sugar. Eat a well-balanced diet with plenty of fresh fruits, vegetables and whole grains if not contraindicated by your primary care provider. Choose water to hydrate yourself over any other type of drinks. Talk to your primary doctor for further advice for a diet that fits your nutritional body requirements and for an adequate exercise program to keep and improve your overall health condition. ALWAYS FOLLOW/CONSIDER YOUR PRIMARY CARE DOCTOR'S MEDICAL ADVICE BEFORE MAKING ANY CHANGES TO YOUR DIET OR LEVELS OF ACTIVITY. Should you have any other questions or concerns on regards today?s procedure; feel free to contact us to Change Control Specialist Department . Stand Alone Forms: Isha Award Info., Patient Portal Info Letter Discharge Order Discharge Orders: Discharge (Routine); Ordered 09/03/24 Ordered By: Hannah Day Quality Discharge Quality Measures VTE prophylaxis
--- NOTE | 2024-09-03 13:07 | PD.RESPRO ---
Documentation for date of: 09/03/24 Subjective Subjective Interval history: z Exam Vital Signs Temp Pulse Resp BP Pulse Ox O2 Del Method 97.3 F 71 20 115/66 99 Room Air 09/03/24 12:00 09/03/24 12:00 09/03/24 12:00 09/03/24 12:00 09/03/24 12:00 09/03/24 12:00 Objective Labs 09/03/24 04:55 09/03/24 04:55 Labs: Laboratory Results - last 24 hr 09/03/24 04:55 WBC 9.4 RBC 2.67 L Hgb 8.8 L Hct 25.2 L MCV 94 MCH 33.0 MCHC 34.9 RDW Std Deviation 51.3 H Plt Count 561 H D Neut % (Auto) 83 H Lymph % (Auto) 10 Benton % (Auto) 6 Eos % (Auto) 1 Baso % (Auto) 0 Neut # (Auto) 7.8 H Lymph # (Auto) 0.9 L Benton # (Auto) 0.5 Eos # (Auto) 0.1 Baso # (Auto) 0.0 Immature Gran # (Auto) 0.06 H Absolute Nucleated RBC 0.00 Immature Gran % 1 H Nucleated RBC % 0 Sodium 137 Potassium 4.1 D Chloride 107 Carbon Dioxide 20.9 Anion Gap 9 BUN 11 Creatinine 0.8 Estim Creat Clear Calc 66.0 eGFR > 60 BUN/Creatinine Ratio 14 Glucose 162 H Calculated Osmolality 277 Calcium 8.2 L Corrected Calcium 8.8 Phosphorus 3.5 Magnesium 1.9 Total Bilirubin 0.5 AST 17 ALT 14 Alkaline Phosphatase 80 Total Protein 5.8 Albumin 3.2 L Globulin 2.6 Albumin/Globulin Ratio 1.2 Quality Measures Quality Measures VTE prophylaxis Assessment & Plan Assessment Current Active Medications: Generic Name Dose Route Start Last Admin Trade Name Freq PRN Reason Stop Dose Admin Acetaminophen 650 mg 08/31/24 22:52 Acetaminophen 325 Mg Tablet PO 09/30/24 22:51 Q6H PRN PAIN SCALE 1-3 (mild Acetaminophen 650 mg 09/02/24 09:41 Acetaminophen 325 Mg Tablet PO 09/30/24 22:51 Q6H PRN Fever >100.4 Aspirin 81 mg 09/01/24 21:00 09/02/24 20:25 Aspirin Ec 81 Mg Tabec PO 10/01/24 20:59 81 mg HS HUMBERTO Administration Atorvastatin Calcium 80 mg 09/01/24 21:00 09/02/24 20:25 Atorvastatin Calcium 20 Mg Tablet PO 09/30/24 22:59 80 mg HS HUMBERTO Administration Clopidogrel Bisulfate 75 mg 09/03/24 09:00 09/03/24 09:10 Clopidogrel Bisulfate 75 Mg Tablet PO 10/03/24 08:59 75 mg DAILY HUMBERTO Administration Dextrose 25 ml 08/31/24 23:01 Dextrose 50%-Water Inj 50 Ml Syringe IV 09/30/24 23:00 Q15MIN PRN BG 50-70 responsive npo pt Dextrose 50 ml 08/31/24 23:01 Dextrose 50%-Water Inj 50 Ml Syringe IV 09/30/24 23:00 Q15MIN PRN BG <50 OR BG <70 & pt unresponsive Finasteride 5 mg 09/01/24 09:00 09/03/24 09:09 Finasteride 5 Mg Tablet PO 10/01/24 08:59 5 mg QDAY HUMBERTO Administration Glucagon 1 mg 08/31/24 23:01 Glucagon Inj 1 Mg Vial IM Q15MIN PRN BG <70, and no IV access Ceftriaxone Sodium/Dextrose 1 gm in 50 mls @ 100 mls/hr 09/02/24 07:45 09/03/24 09:10 Rocephin/D5w 1gm Iv Premix IV 09/09/24 07:44 100 mls/hr QDAY HUMBERTO Administration Insulin Human Lispro 0 unit 09/01/24 17:00 09/03/24 11:25 Insulin Lispro (Admelog) 1 Unit/0.01 Ml Unit SC 10/01/24 16:59 2 unit ACHS HUMBERTO Administration Protocol Metoprolol Succinate 37.5 mg 09/01/24 09:00 09/03/24 09:09 Metoprolol Succinate Xl 25 Mg Tabcr PO 10/01/24 08:59 37.5 mg QDAY HUMBERTO Administration Sennosides 1 tab 09/02/24 16:00 09/03/24 09:10 Senna Tablet PO 10/02/24 15:59 1 tab QDAY HUMBERTO Administration Protocol Tamsulosin HCl 0.4 mg 09/01/24 21:00 09/02/24 20:25 Tamsulosin Hcl 0.4 Mg Capsule PO 10/01/24 20:59 0.4 mg HS HUMBERTO Administration Trazodone HCl 50 mg 08/31/24 23:00 09/02/24 20:25 Trazodone Hcl 50 Mg Tablet PO 09/30/24 22:59 50 mg HS HUMBERTO Administration
--- NOTE | 2024-09-03 15:55 | PC.SS ---
Rounding Note: Plan is to d/c the patient home today.
== END 2024-09-03 13:54 | disposition home or self-care (01) | DRG 690 ==
LOC: SERX 22:11 → SERHOLD 23:09 → S2NX 09-01 16:11
PROVIDERS: Internal Medicine Cardiovascular Disease; Student in an Organized Health Care Education/Training Program; Admitting Provider Internal Medicine; Emergency Provider Emergency Medicine; PCP Family Medicine; Visit Provider Internal Medicine
DX: N39.0 Urinary tract infection, site not specified (principal); N17.9 Acute kidney failure, unspecified; D64.9 Anemia, unspecified; I25.10 Atherosclerotic heart disease of native coronary artery without angina pectoris; D75.839 Thrombocytosis, unspecified; I25.2 Old myocardial infarction; I10 Essential (primary) hypertension; K29.70 Gastritis, unspecified, without bleeding; J44.9 Chronic obstructive pulmonary disease, unspecified; N20.0 Calculus of kidney; B96.89 Other specified bacterial agents as the cause of diseases classified elsewhere; R91.8 Other nonspecific abnormal finding of lung field; N40.0 Benign prostatic hyperplasia without lower urinary tract symptoms; E78.00 Pure hypercholesterolemia, unspecified; F17.200 Nicotine dependence, unspecified, uncomplicated; E11.51 Type 2 diabetes mellitus with diabetic peripheral angiopathy without gangrene; Z95.5 Presence of coronary angioplasty implant and graft; Z79.84 Long term (current) use of oral hypoglycemic drugs; Z79.899 Other long term (current) drug therapy; Z79.82 Long term (current) use of aspirin; Z79.02 Long term (current) use of antithrombotics/antiplatelets
CPT/HCPCS: 36415; 70450; 71045; 71275; 72131; 74177; 80053; 80061; 81001; 82010; 82607; 82728; 82746; 83036; 83540; 83550; 83605; 83735; 83880; 84100; 84145; 84443; 84484; 85025; 85046; 85379; 85610; 85652; 85730; 86140; 87040; 87077; 87086; 87186; 87400; 87811; 93005; 93306; 96361; 96365; 96366; 96367; 96372; 96375; 97162; 99152; 99285; A4649; C1894; J0171; J0461; J0696; J1643; J1644; J1815; J2250; J2270; J2310; J2371; J2470; J3010; J3420; J3475; J3480; J3490; J7030; Q9967; A9270; J2305

== ENCOUNTER → 2024-11-22 | Outpatient (CLI) | payer MEDICARE, MEDICAID, SELFPAY ==
[2024-11-22 14:17] LABS: Basophils % (Auto) 1 % (0-2.5); Eosinophils # (Auto) 0.1 Thou/mm3 (0.0-0.5); Eosinophils % (Auto) 2 % (0-10); Hematocrit 29.7 % (41.0-53.0); Hemoglobin 10.6 g/dL (13.5-16.0); Immature Granulocytes % (Auto) 0 % (0-0); Immature Granulocytes Auto 0.02 Thou/mm3 (0.00-0.00); Lymphocytes # (Auto) 2.2 Thou/mm3 (1.0-4.8); Lymphocytes % (Auto) 30 % (10-50); Mean Corpuscular HGB Conc 35.7 g/dl (31.0-37.0); Mean Corpuscular Hemoglobin 33.3 pg (25.0-35.0); Mean Corpuscular Volume 93 fL (80-100); Monocytes # (Auto) 0.4 Thou/mm3 (0.0-0.8); Monocytes % (Auto) 5 % (0-12); Neutrophils # (Auto) 4.6 Thou/mm3 (1.8-7.7); Neutrophils % (Auto) 62 % (37-80); Nucleated Red Blood Cell % 0 /100 WBC (0); Platelet Count 306 Thou/mm3 (140-440); RDW Standard Deviation 46.9 fL (35.1-43.9); Red Blood Count 3.18 Miln/mm3 (4.50-5.90); White Blood Count 7.4 Thou/mm3 (3.8-10.6)
[2024-11-22 14:23] LABS: Prostate Specific Antigen 1.59 ng/mL (0-4.00)
[2024-11-22 14:28] LABS: Alanine Aminotransferase 13 U/L (10-49); Albumin, Serum 3.7 gm/dL (3.4-4.8); Albumin/Globulin Ratio 1.5 (1.2-2.2); Alkaline Phosphatase 81 U/L (46-116); Anion Gap 10 (7-16); Aspartate Amino Transferase 15 U/L (0-34); BUN/Creatinine Ratio 14 Ratio (12-20); Bilirubin,Total 0.4 mg/dL (0.3-1.2); Blood Urea Nitrogen 13 mg/dL (9-23); Calcium 8.3 mg/dL (8.3-10.6); Calcium (Corrected) 8.5 mg/dL (8.5-10.1); Carbon Dioxide 23.8 mMol/L (20.0-31.0); Chloride 102 mMol/L (98-107); Creatinine (Component) 0.9 mg/dL (0.6-1.3); Globulin 2.5 gm/dL (2.3-3.5); Glucose 199 mg/dL (74-106); Osmolality,Calculated 278 (275-295); Potassium 4.2 mMol/L (3.4-5.1); Sodium 136 mMol/L (136-145); Total Protein 6.2 gm/dL (5.7-8.2); eGFR > 60 See Note
== END | disposition home or self-care (01) ==
LOC: COPL 13:06
PROVIDERS: PCP Internal Medicine; Referring Provider Internal Medicine; Visit Provider Internal Medicine
DX: E11.65 Type 2 diabetes mellitus with hyperglycemia (principal); I25.10 Atherosclerotic heart disease of native coronary artery without angina pectoris; N40.1 Benign prostatic hyperplasia with lower urinary tract symptoms; N39.0 Urinary tract infection, site not specified
CPT/HCPCS: 36415; 80053; 84153; 85025

== ENCOUNTER → 2024-12-05 | Outpatient (CLI) | payer MEDICARE, MEDICAID, SELFPAY ==
--- NOTE | 2024-12-05 16:27 | XR_ITS ---
Examination: Abdomen AP single view Technique: AP portable supine abdomen, single view Exam date and time: December 05, 2024 1633 hours INDICATIONS: Abdominal pain one week. FINDINGS: Moderate air and stool throughout the colon Mild small bowel ileus Severe osteopenia Advanced right hip osteoarthritis IMPRESSION: Moderate air and stool throughout the colon Mild small bowel ileus
--- NOTE | 2024-12-05 16:27 | XR_ITS ---
Examination: AP lateral chest 2 views TECHNIQUE: Portable AP lateral chest 2 views Date and time: December 05, 2024, 1635 hours Comparison August 31, 2024 INDICATIONS: Cough and congestion this week. FINDINGS: Normal heart size. No pneumonia or pulmonary edema. Moderate osteopenia IMPRESSION: No pneumonia or pulmonary edema.
[2024-12-05 17:53] LABS: Basophils # (Auto) 0.1 Thou/mm3 (0.0-0.2); Basophils % (Auto) 0 % (0-2.5); Eosinophils % (Auto) 0 % (0-10); Hematocrit 30.5 % (41.0-53.0); Hemoglobin 10.4 g/dL (13.5-16.0); Immature Granulocytes % (Auto) 1 % (0-0); Immature Granulocytes Auto 0.08 Thou/mm3 (0.00-0.00); Lymphocytes # (Auto) 1.2 Thou/mm3 (1.0-4.8); Lymphocytes % (Auto) 9 % (10-50); Mean Corpuscular HGB Conc 34.1 g/dl (31.0-37.0); Mean Corpuscular Hemoglobin 33.2 pg (25.0-35.0); Mean Corpuscular Volume 97 fL (80-100); Monocytes # (Auto) 0.6 Thou/mm3 (0.0-0.8); Monocytes % (Auto) 4 % (0-12); Neutrophils # (Auto) 11.4 Thou/mm3 (1.8-7.7); Neutrophils % (Auto) 86 % (37-80); Nucleated Red Blood Cell % 0 /100 WBC (0); Platelet Count 301 Thou/mm3 (140-440); RDW Standard Deviation 50.5 fL (35.1-43.9); Red Blood Count 3.13 Miln/mm3 (4.50-5.90); White Blood Count 13.3 Thou/mm3 (3.8-10.6)
[2024-12-05 18:16] LABS: Alanine Aminotransferase 13 U/L (10-49); Albumin, Serum 3.6 gm/dL (3.4-4.8); Albumin/Globulin Ratio 1.3 (1.2-2.2); Alkaline Phosphatase 105 U/L (46-116); Anion Gap 11 (7-16); Aspartate Amino Transferase 19 U/L (0-34); BUN/Creatinine Ratio 14 Ratio (12-20); Bilirubin,Total 0.8 mg/dL (0.3-1.2); Blood Urea Nitrogen 14 mg/dL (9-23); Calcium 8.2 mg/dL (8.3-10.6); Calcium (Corrected) 8.5 mg/dL (8.5-10.1); Carbon Dioxide 19.4 mMol/L (20.0-31.0); Chloride 102 mMol/L (98-107); Globulin 2.7 gm/dL (2.3-3.5); Glucose 163 mg/dL (74-106); Osmolality,Calculated 269 (275-295); Sodium 132 mMol/L (136-145); Total Protein 6.3 gm/dL (5.7-8.2); eGFR > 60 See Note
== END | disposition home or self-care (01) ==
LOC: CDIM 16:23
PROVIDERS: Referring Provider Specialist; Visit Provider Specialist
DX: K56.7 Ileus, unspecified (principal); E78.5 Hyperlipidemia, unspecified
CPT/HCPCS: 36415; 71046; 74018; 80053; 85025; 87040; 87086

== ENCOUNTER → 2024-12-09 | Outpatient (CLI) | payer MEDICARE, MEDICAID, SELFPAY | END | disposition home or self-care (01) | LOC: SLDO 11:26 | PROVIDERS: Referring Provider Specialist; Visit Provider Specialist | DX: E78.5 Hyperlipidemia, unspecified (principal) | CPT/HCPCS: 87077; 87086; 87186 ==

== ENCOUNTER 2024-12-31 07:48 | Emergency (ER) | payer MEDICARE, MEDICAID, SELFPAY ==
[2024-12-31] VITALS (14 sets, daily range): BP systolic 81–163; BP diastolic 50–95; PULSE 70–114; RESP 15–23; TEMP 35.1–37.1; O2SAT 97–100; BMI 20.7
--- NOTE | 2024-12-31 07:50 | XR_ITS ---
Examination: Bilateral femur 4 views TECHNIQUE: AP lateral left and right femur total 4 views Date and time: December 31, 2024 0829 hours INDICATIONS: Patient fell today with injury to both legs, bilateral leg pain. FINDINGS: Severe osteopenia. Acute angulated intertrochanteric fracture left hip Right hip shaft of both right and left femurs intact IMPRESSION: Acute angulated intertrochanteric fracture left hip
--- NOTE | 2024-12-31 07:50 | XR_ITS ---
Examination: AP pelvis single view Technique one AP portable supine pelvis single view Date and time: December 31, 2024 0829 hours INDICATIONS: Patient fell today with injury to the pelvis, pelvic pain. FINDINGS: Severe osteopenia. Acute angulated intertrochanteric fracture left hip Right hip bones of the pelvis intact IMPRESSION: Acute angulated intertrochanteric fracture left hip
--- NOTE | 2024-12-31 07:50 | XR_ITS ---
Examination: Humerus 2 views left Technique: Humerus, AP lateral 2 views Date and time of exam: December 31, 2024 0823 hours INDICATIONS: Patient fell today with into the arm, arm pain. FINDINGS: Acute impacted comminuted fracture humeral neck Shaft of the humerus intact IMPRESSION: Acute impacted fracture left humeral neck
--- NOTE | 2024-12-31 07:50 | XR_ITS ---
Examination: Left shoulder 2 views Technique one AP internal rotation Y-view left shoulder 2 views Date and time: December 31, 2024 0822 hours INDICATIONS: Patient fell today with injury to the shoulder, shoulder pain. FINDINGS: Suspicious for fracture of the humeral neck Severe osteopenia IMPRESSION: Recommend follow-up external rotation view of the shoulder to confirm acute fracture humeral neck
--- NOTE | 2024-12-31 07:54 | EDNOTE_ITS ---
ED Fall Injury RME/HPI General Chief Complaint: Fall Stated Complaint: FALL Time Seen by Provider: 12/31/24 07:50 Arrival date/time: 12/31/24 07:48 RME / HPI RME / HPI Narrative: 79 year old male with history of CAD s/p PCI on Plavix, PAD, hypertension, diabetes, BPH presents to the ED BIBA from home for evaluation of left upper and lower extremity pain following a ground level fall that occurred this morning. Pain aggravated with movements or palpation. No other injuries or complaints reported. Denied LOC. Patient states at baseline he walks with a walker. Last tetanus unknown. Related Data Home Medications ?Medication ?Instructions ?Recorded ?Confirmed tamsulosin 0.4 mg capsule (Flomax) 0.4 mg PO QDAY ##0 07/15/16 09/01/24 finasteride 5 mg tablet 5 mg PO QDAY 07/05/19 docusate sodium 100 mg capsule 1 cap PO BID 03/04/22 0 08/10/23 dupilumab 300 mg/2 mL subcutaneous 2 ml subcut PRN PRN Pain 03/04/22 08/10/23 syringe (Dupixent) metformin 1,000 mg tablet 1 tab PO BID 03/04/22 multivitamin 1 tab PO QAM 03/04/22 sodium chloride 1,000 mg soluble 1 tab PO BID 03/04/22 09/01/24 tablet Held on 09/03/24. Instructions: Resume on 09/10/24. Hold until repeat CMP in 1 week atorvastatin 80 mg tablet 80 mg PO DAILY 09/01/2408/11 cetirizine 10 mg tablet 10 mg PO DAILY 09/01/2408/11 clopidogrel 75 mg tablet 75 mg PO DAILY 09/01/2408/11 metoprolol succinate 25 mg 37.5 mg PO DAILY 09/01/24 0 09/01/24 tablet,extended release 24 hr trazodone 50 mg tablet 50 mg PO DAILY 09/01/2408/11 Allergies Allergy/AdvReac Type Severity Reaction Status Date / Time naproxen Allergy Severe DIFFICULTY Verified 12/31/24 08:17 BREATHING Review of Systems Review of Systems Systems Reviewed: All systems reviewed, normal except as documented Past Medical History Past Medical History NEUROLOGIC: Positive Neurological Disorders and Transient Ischemic Attacks (TIA) CARDIAC: Positive Hypercholesterolemia and Hypertension GASTROINTESTINAL: Positive Gastrointestinal Disorders and Gall Bladder Disease GENITOURINARY: Positive Genitourinary Disorders and Benign Prostatic Hyperplasia (NO MED) ENT: Positive Cataracts ENDOCRINE: Positive Endocrine Disorders and Diabetes Mellitus Type 2 PSYCHO/SOCIAL: Positive Anxiety OTHER HISTORY: Positive Chicken Pox Family History FAMILY HISTORY: Positive Family Cardiac Disorders and Family Cancer Surgical History SURGICAL: Positive Coronary Stent and Abdominal Surgery Social History SMOKING STATUS: Current every day smoker SUBSTANCE USE: does not use ED Exam Narrative Physical exam: Physical Exam: General: The vital signs were reviewed. The patient is non-toxic, in no apparent distress and appears healthy with a patent airway, no respiratory distress and has no apparent circulatory problems. Head & Scalp: Normocephalic, atraumatic. Face: Appears normal and is without lesions, deformity. Ears: Left external pinna appears normal. Right external pinna appears normal. Eyes: The sclera is anicteric. No obvious photophobia. The Left and Right Orbit/Lid/Conjunctiva appears normal without swelling, discoloration or injection. Nose: The nose is without deformity, discharge or tenderness; Throat: Appears normal. The mucous membranes are pink and moist without exudates, redness or mass seen. The tongue appears normal. Neck: The neck is supple and no apparent mass or adenopathy. Chest: The chest wall is normal in size and symmetry and has no chest wall tenderness or crepitus. The patient displays normal ventilator effort without retractions, accessory muscle use and has adequate air movement bilaterally with no wheezes and no rales. Cardiovascular: Regular rate and rhythm; No murmurs, rubs, or gallops; Gastrointestinal: The abdomen appears normal. No obvious hernias or mass. The abdomen is soft and benign, non-distended, with no pain, no guarding and no rebound tenderness. Bowel sounds are present and normal sounding. No CVA tenderness. Genitourinary: Back/Spine: No obvious pain or discomfort Extremities/Musculoskeletal/lymphatic: The bilateral upper and lower extremities are warm. There is no evidence of arterial insufficiency. There is no evidence of venous insufficiency/edema. The patient has obvious pain on palpation of the proximal humerus over the head or neck and her upper shaft. The clavicle seems to be stable. Nontender. Elbow forearm wrist and hand seem to be unremarkable. Skin: The skin is warm, dry and intact. No rashes. No petechia. No purpura. No abnormal bruising. The color is appropriate with no cyanosis. Mental status/Psychiatric: Mental status is appropriate for age. The patient has no apparent delusions, visual hallucinations, no apparent audible hallucinations. The patient has no apparent suicidal thoughts/ideation and no apparent homicidal thoughts/ideation. Neurological: The patient is awake, alert, interactive, cordial, cooperative and is oriented to name and situation. The patient follows commands and answers historical question with no impairment. There is no visual disturbance apparent. The pupils are equal and reactive bilaterally with normal eye movements and no diplopia The bilateral upper and lower extremities have normal strength, normal range of motion and normal functioning. The gait, station and balance appear to be baseline with no acute change Course Quality Measures none Orders Category Date Time Status Bedside Blood Glucose NOW Care 12/31/24 08:[address] Screening NOW Care 12/31/24 12:43 Active EKG (ED ONLY) *Do not use* NOW Care 12/31/24 08:01 Completed Myers [Urinary Catheter] X1 Care 12/31/24 10:24 Active Miscellaneous Nursing Order NOW Care 12/31/24 07:50 Active sling [Splint / Immobilizer] STAT Care 12/31/24 11:48 Active Referral - Industrial Designer Stat Cons 12/31/24 17:[address] chest abdomen pelvis w Stat Exams 12/31/24 12:[address] head/brain wo con Stat Exams 12/31/24 08:[address] hip LT wo con Stat Exams 12/31/24 12:[address] shoulder LT wo con Stat Exams 12/31/24 12:22 Completed EKG (ED Only) Stat Exams 12/31/24 08:01 Draft XR chest 1V portable Stat Exams 12/31/24 08:01 Completed XR femur BI min 2V Stat Exams 12/31/24 07:50 Completed XR humerus LT MIN 2V Stat Exams 12/31/24 07:50 Completed XR pelvis 1-2V Stat Exams 12/31/24 07:50 Completed XR shoulder LT min 2V Stat Exams 12/31/24 07:50 Completed Alcohol, Blood Medical Stat Lab 12/31/24 08:57 Completed Ammonia Stat Lab 12/31/24 08:57 Completed B-Type Natriuretic Peptide Stat Lab 12/31/24 08:57 Completed Blood Culture (Lab) Stat Lab 12/31/24 08:57 Received CBC Stat Lab 12/31/24 08:57 Completed Comprehensive Metabolic Panel Stat Lab 12/31/24 08:57 Completed Drug Screen,Urine Stat Lab 12/31/24 10:20 Completed Lactate (Lactic Acid) Stat Lab 12/31/24 08:57 Completed Lactic Acid, 3 HR Stat Lab 12/31/24 13:48 Completed Prothrombin Time with INR Stat Lab 12/31/24 08:57 Completed Troponin I Stat Lab 12/31/24 08:57 Completed Type and Screen Stat Lab 12/31/24 08:57 Completed Urinalysis Stat Lab 12/31/24 10:20 Completed Urinalysis, C/S if Indicated Stat Lab 12/31/24 10:20 Completed Urine Culture Stat Lab 12/31/24 10:20 Received Venous Blood Gas Stat Lab 12/31/24 08:57 Completed Morphine Inj Med 12/31/24 08:00 Discontinued 2 mg IVP X1 ONE Ondansetron Inj [Zofran Inj] Med 12/31/24 08:00 Discontinued 4 mg IV X1 ONE Sodium Chloride 0.9% 1000 ml [Ns] 1,000 ml Med 12/31/24 11:44 Active IV 150 mls/hr Sodium Chloride 0.9% 1000 ml [Ns] 1,905 ml Med 12/31/24 12:40 Discontinued IV 1,905 mls/hr Sodium Chloride 0.9% 500 ml [Ns] 500 ml Med 12/31/24 11:44 Discontinued IV 999 mls/hr cefTRIAXone/D5w 1gm IV premix [Rocephin/D5w 1gm IV Med 12/31/24 11:44 Discontinued premix] 1 gm in 50 ml IV X1 Vital Signs Vital signs: Vital Signs Temperature 97.6 F 12/31/24 07:50 Pulse Rate 70 12/31/24 07:50 Respiratory Rate 17 12/31/24 07:50 Blood Pressure 113/62 12/31/24 07:50 Pulse Oximetry (%) 98 12/31/24 07:50 Oxygen Delivery Method Room Air 12/31/24 07:50 Pulse ox is 98% on room air which is adequate. Fall MDM Narrative MDM Narrative:: Gaby Martinez am scribing for and in the presence of Dr. Walsh. Patient is normally weak uses a walker but fell today hit his head. He is on Plavix. CT of the head came back negative for any acute. Chest x-ray came back negative for heart and lung disease got some dilated loops of bowel and there is diaphragm but no real complaint of belly pain. He does have an obvious humeral neck fracture on the chest x-ray. X-rays of the left humerus and shoulder confirm the left humeral neck fracture. It is not dislocated. There is no other fracture seen. The distal humerus elbow is normal. X-ray of the pelvis reveal a left intertrochanteric angulated fracture. The pelvis is unremarkable. The bilateral femurs I have no other fracture seen the right femur is normal. The right hip is normal on that 2 view. Labs reveal a urine with 192 white blood cells consistent with a UTI otherwise unremarkable. Bicarb CO2 came back at 16.7 on the CHEM CHEM panel sodium is low at 126. pH is 7.32 pCO2 of 30 PT/INR within normal limits. CBC is white count of 19.9 hemoglobin of 9.7. Patient has multiple abnormalities that will require medical clearance for surgery. Spoke with Dr. Azul orthopedic surgeon he is aware of the left intertrochanteric fracture and the humeral neck fracture. Patient is relatively comfortable with the pain medicine today. Spoke with the hospitalist they will be admitting. But they later came down spoke with Dr. Azul and they recommended other CTs which reveal an acetabular fracture of the left hip and they feel this is beyond the capability of this facility. We tried to contact Dr. Azul several times to confirm the resident's discussion but evidently he has been tied up with patients. So at 1710 hrs. and we will try to transfer this patient to [facility] where they can handle acetabular fractures. Patient arrived was seen in the ambulance bay once he was put into a room he was later found to be hypotensive and patient eventually got 2 L of fluid where his blood pressures came up into the 100 110 range. He was producing good amount of urine and after couple liters had 360 cc of urine came out. Patient was mentating well feeling fine he wanted to go out and have a smoke but obviously that was going to be an option for Multiple plain film x-rays revealed a humeral neck fracture and a left intertrochanteric hip fracture. CTs were ordered to clarify things which revealed pubic rami fractures and a left anterior acetabular fracture accompanying the left intertrochanteric hip fracture. Because of this this patient will need to be transferred to a higher level of care. Also because the patient was hypotensive lactic acid was elevated and a UTI was discovered he was given Rocephin and 2 L of fluid and presumed to have early sepsis but because the source was uncertain CT was done of the chest abdomen pelvis which revealed no other source for infection or sepsis. Therefore only the urine is the source. At 1710 hrs. I contacted our transfer nurse to work on a transfer as we are waiting for Dr Amezcua to call back and confirm his plans but again we have been unsuccessful in reconnecting. Second lactic acid came back and is improved. 1800: Patient signed out to Dr. Jeff pending transfer for ortho. At 1745 hrs. the blood pressure 110 systolic the heart rate is in the 110 range he looks clinically comfortable. A second CBC and third lactic acid is ordered for follow-up with Dr. JEFF. The transfer nurse was contacted and they are working on the transfer. Patient data External records reviewed:: [facility] previous records (I reviewed ED visit on 08/31/2024 through 09/03/2024 ) and EMS form Clinical information provided by:: patient and EMS Social determinants that could affect healthcare access:: none Patient has the following chronic illnesses:: CAD s/p PCI on Plavix, PAD, hypertension, diabetes, BPH How is presenting disease/condition affected by chronic disease/condition?: exacerbated by Evaluation data The following diagnostics were reviewed and interpreted by me:: lab results, radiology exam(s) (CXR interpreted by me. There is increased bowel gas below the diaphragm, lung morton are clear, heart is normal, left clavicle appears normal, left humeral neck fracture. ) and EKG tracing(s) (09:22 AM. NSR, rate 72, no STEMI. ) Lab and/or radiology exams considered but not ordered:: None Interpretation Summary: Ordering Physician: Sumit Walsh MD Date of Service: 12/31/24 Procedure(s): CT head/brain wo con Accession Number(s): [id number] cc: Narciso Mancini DO; Sumit Walsh MD; Dominic Vargas MD~ Examination: CT brain head without contrast. 2-D sagittal coronal reconstructions Date and time: December 31, 2024, 0859 hours Indications : Patient fell today with injury to the head, head pain, patient is anticoagulated COMPARISON: August 31, 2024 CTDI: vol (mGy):49.7 DLP: (mGycm):1113 Technique: Multiple CT axial sections of the brain have been obtained, 5 mm slice thickness. Contrast has not been administered. 2-D sagittal, coronal reconstructions have been obtained Low dose protocols were performed. One or more of the following dose reduction techniques were used; automated exposure control, adjustment of the mA and/or KV according to patient size, use of iterative reconstruction technique. Findings: No significant ventricular enlargement. Stable chronic subdural hygromas Intra-axial or extra-axial hemorrhage density is not seen. No mass effect or midline shift Basal cisterns are not remarkable. Fourth ventricle is midline. Cranial vault intact. Old infarct right cerebellar hemisphere Impression: Negative for acute hemorrhage, mass effect or midline shift Dictated By: Dominic Vargas MD Signed By: <Electronically signed by Dominic Vargas MD in OV> 12/31/24 0955 Ordering Physician: Sumit Walsh MD Date of Service: 12/31/24 Procedure(s): XR femur BI min 2V Accession Number(s): [id number] cc: Narciso Mancini DO; Sumit Walsh MD; Dominic Vargas MD~ Examination: Bilateral femur 4 views TECHNIQUE: AP lateral left and right femur total 4 views Date and time: December 31, 2024 0829 hours INDICATIONS: Patient fell today with injury to both legs, bilateral leg pain. FINDINGS: Severe osteopenia. Acute angulated intertrochanteric fracture left hip Right hip shaft of both right and left femurs intact IMPRESSION: Acute angulated intertrochanteric fracture left hip Dictated By: Dominic Vargas MD Signed By: <Electronically signed by Dominic Vargas MD in OV> 12/31/24 1110 Ordering Physician: Sumit Walsh MD Date of Service: 12/31/24 Procedure(s): XR humerus LT MIN 2V Accession Number(s): [id number] cc: Narciso Mancini DO; Sumit Walsh MD; Dominic Vargas MD~ Examination: Humerus 2 views left Technique: Humerus, AP lateral 2 views Date and time of exam: December 31, 2024 0823 hours INDICATIONS: Patient fell today with into the arm, arm pain. FINDINGS: Acute impacted comminuted fracture humeral neck Shaft of the humerus intact IMPRESSION: Acute impacted fracture left humeral neck Dictated By: Dominic Vargas MD Signed By: <Electronically signed by Dominic Vargas MD in OV> 12/31/24 1112 Ordering Physician: Sumit Walsh MD Date of Service: 12/31/24 Procedure(s): XR pelvis 1-2V Accession Number(s): [id number] cc: Naricso Mancini DO; Sumit Walsh MD; Dominic Vargas MD~ Examination: AP pelvis single view Technique one AP portable supine pelvis single view Date and time: December 31, 2024 0829 hours INDICATIONS: Patient fell today with injury to the pelvis, pelvic pain. FINDINGS: Severe osteopenia. Acute angulated intertrochanteric fracture left hip Right hip bones of the pelvis intact IMPRESSION: Acute angulated intertrochanteric fracture left hip Dictated By: Dominic Vargas MD Signed By: <Electronically signed by Dominic Vargas MD in OV> 12/31/24 1110 Ordering Physician: Sumit Walsh MD Date of Service: 12/31/24 Procedure(s): XR shoulder LT min 2V Accession Number(s): [id number] cc: Narciso Mancini DO; Sumit Walsh MD; Dominic Vargas MD~ Examination: Left shoulder 2 views Technique one AP internal rotation Y-view left shoulder 2 views Date and time: December 31, 2024 0822 hours INDICATIONS: Patient fell today with injury to the shoulder, shoulder pain. FINDINGS: Suspicious for fracture of the humeral neck Severe osteopenia IMPRESSION: Recommend follow-up external rotation view of the shoulder to confirm acute fracture humeral neck Dictated By: Dominic Vargas MD Signed By: <Electronically signed by Dominic Vargas MD in OV> 12/31/24 1111 == Ordering Physician: Sumit Walsh MD Date of Service: 12/31/24 Procedure(s): XR chest 1V portable Accession Number(s): [id number] cc: Narciso Mancini DO; Sumit Walsh MD; Dominic Vargas MD~ Examination: AP chest single view Technique one AP portable semiupright chest single view Date and time: December 31, 2024 0821 hours INDICATIONS: Patient fell today with injury to the chest, chest pain FINDINGS: Acute fracture humeral neck, left No pneumothorax Normal heart size Severe osteopenia. IMPRESSION: Acute fracture left humeral neck Dictated By: Dominic Vargas MD Signed By: <Electronically signed by Dominic Vargas MD in OV> 12/31/24 1114 Ordering Physician: Durga Amezcua MD Date of Service: 12/31/24 Procedure(s): CT hip LT wo con Accession Number(s): [id number] cc: aNrciso Mancini DO; Dominic Varags MD; Durga Amezcua MD~ Examination: CT left hip, without contrast. 2-D sagittal reconstructions. 2-D coronal reconstructions. 3-D reconstructions. Date and time of exam:December 31, 2024 at 1322 hours INDICATIONS: Patient fell today with injury to left hip, left hip pain CTDI: vol (mGy):7.3 DLP: (mGycm):255 Technique: Multiple 1.25 mm axial sections of the left hip have been obtained. 2-D sagittal and coronal reconstructions have been obtained. 3-D reconstructions have been obtained. Low dose protocols were performed. One or more of the following dose reduction techniques were used; automated exposure control, adjustment of the mA and/or KV according to patient size, use of iterative reconstruction technique. Findings: Severe osteopenia Acute angulated comminuted intertrochanteric fracture left hip Fracture also involves the greater trochanter the left hip Right hip intact Acute fractures left superior pubic ramus which involve the anterior margin of the left acetabulum, axial image 125 as well as nondisplaced fracture left inferior pubic ramus Also acute fractures right superior inferior pubic rami Hematoma posterior to the anterior rami poorly defined IMPRESSION: Acute angulated comminuted fracture intertrochanteric left hip Acute fractures left superior pubic ramus which involve the anterior margin of the left acetabulum Acute fracture left inferior pubic ramus Acute fractures right superior inferior pubic rami Dictated By: Dominic Vargas MD Signed By: <Electronically signed by Dominic Vargas MD in OV> 12/31/24 1426 Ordering Physician: Durga Amezcua MD Date of Service: 12/31/24 Procedure(s): CT shoulder LT wo con Accession Number(s): [id number] cc: Narciso Mancini DO; Dominic Vargas MD; Durga Amezcua MD~ Examination: CT left shoulder, without contrast. 2-D sagittal reconstructions. 2-D coronal reconstructions. 3-D reconstructions. Date and time of exam:December 31, 2024 1316 hours INDICATIONS: Patient fell today with injury to the shoulder, shoulder pain. CTDI: vol (mGy):5.82 DLP: (mGycm):143 Technique: Multiple 1.25 mm axial sections of the left shoulder have been obtained. 2-D sagittal and coronal reconstructions have been obtained. 3-D reconstructions have been obtained. Low dose protocols were performed. One or more of the following dose reduction techniques were used; automated exposure control, adjustment of the mA and/or KV according to patient size, use of iterative reconstruction technique. Findings: Acute comminuted impacted fracture humeral neck No dislocation of the humeral head Scapula and clavicle appear intact IMPRESSION: Acute comminuted impacted fracture humeral neck Dictated By: Dominic Vargas MD Signed By: <Electronically signed by Dominic Vargas MD in OV> 12/31/24 1430 Ordering Physician: Sumit Walsh MD Date of Service: 12/31/24 Procedure(s): CT chest abdomen pelvis w Accession Number(s): [id number] cc: Narciso Mancini DO; Sumit Walsh MD; Dominic Vargas MD~ Examination: CT chest with intravenous contrast CT abdomen with intravenous contrast CT pelvis with intravenous contrast 2-D coronal and sagittal reconstructions Time of exam: December 31, 2024 1332 hours INDICATIONS: Ground-level fall today with injury to the chest and abdomen, chest pain abdomen pain CTDI: vol (mGy) : 10 DLP: (mGycm): 796 Technique: Multiple axial images of the chest, abdomen and pelvis with intravenous contrast, 3.0 mm slice thickness. Images obtained post intravenous injection Isovue 370 60 cc. 2-D sagittal and coronal reconstructions. Low dose protocols were performed. One or more of the following dose reduction techniques were used; automated exposure control, adjustment of the mA and/or KV according to patient size, use of iterative reconstruction technique. Findings: Thoracic aorta pulmonary arteries intact No hemopericardium No pneumothorax pulmonary contusion or hemothorax The manubrium and the body the sternum are intact Severe osteopenia No thoracic lumbar or sacral fracture noted Partially visualized fracture left humeral neck Old posterior lower left rib fractures No liver splenic or renal laceration Absent gallbladder Bilateral subcentimeter renal calculi Abdominal aorta intact Negative for pneumoperitoneum Normal appendix Mild thickening of urinary bladder wall, urinary Myers catheter Acute angulated intertrochanteric fractures left hip Fractures right and left superior inferior pubic rami, the left superior pubic ramus fracture extending to the anterior margin of the left acetabulum Poorly defined hematoma in the soft tissue posterior to the anterior pelvic rami Prostatomegaly 60 mm IMPRESSION: No pneumothorax pulmonary contusion or hemothorax Partially visualized fracture left humeral neck No abdominal parenchymal laceration Abdominal aorta intact No free blood in the abdomen or pelvis Acute angulated intertrochanteric fracture left hip Fractures right and left superior inferior pubic rami, the left superior pubic ramus fracture extending to the anterior margin of the left acetabulum Dictated By: Dominic Vargas MD Signed By: <Electronically signed by Dominic Vargas MD in OV> 12/31/24 1439 Medications / Prescriptions Medications or Prescriptions considered but not ordered:: None Medication administrations:: Medication Administration History Sodium Chloride (Ns) 1,000 mls @ 150 mls/hr IV .[id number] ONE Stop: 12/31/24 18:23 Discontinued Medications Ceftriaxone Sodium/Dextrose (Rocephin/D5w 1gm Iv Premix) 1 gm in 50 mls @ 100 mls/hr IV X1 ONE Stop: 12/31/24 12:13 Last Infusion: 12/31/24 13:58 Dose: Infused Documented By: Admin: 12/31/24 12:06 Dose: 100 mls/hr Documented By: IJEOMA Sodium Chloride (Ns) 500 mls @ 999 mls/hr IV .Q31M ONE Stop: 12/31/24 12:14 Last Infusion: 12/31/24 12:58 Dose: Infused Documented By: Admin: 12/31/24 12:06 Dose: 999 mls/hr Documented By: IJEOMA Sodium Chloride (Ns) 1,905 mls @ 1,905 mls/hr 30 ml/kg infuse over 60 min (1905 ml) IV .Q1H ONE; Protocol Stop: 12/31/24 13:39 Last Infusion: 12/31/24 15:36 Dose: Infused Documented By: Admin: 12/31/24 12:52 Dose: 1,905 mls/hr Documented By: IJEOMA Morphine Sulfate (Morphine Sulf Inj 10 Mg/Ml Vial) 2 mg IVP X1 ONE Stop: 12/31/24 08:01 Last Admin: 12/31/24 08:20 Dose: 2 mg Documented By: IJEOMA Ondansetron HCl (Ondansetron Inj 2 Mg/Ml Inj 2 Ml) 4 mg IV X1 ONE; Protocol Stop: 12/31/24 08:01 Last Admin: 12/31/24 08:20 Dose: 4 mg Documented By: IJEOMA See above Consultations Consultation(s) initiated? (list below): Yes Consultation #1 (Physician, Specialty, Details): Attempted to reach ortho Dr. Amezcua. Left a voicemail. Time: 11:37 Consultation #2 (Physician, Specialty, Details): I spoke with ortho Dr. Amezcua. Discussed patients PMHx, HPI, ED course, exam findings, labs, and radiology results. He agrees to consult. Hospitalist team was contacted and accept the patient for admission. Time: 11:44 Diagnosis Fall Differential Diagnosis: syncope, compression fracture and other (hip fracture, hip dislocation ) Most likely diagnosis given after review of the tests above:: Fall closed intertrochanteric fracture of left hip closed fracture of neck of left humerus UTI elevated lactic acid level Hyponatremia Acute hypotension Sepsis Admission Indicated Admission indicated?: indicated Explain why admission is indicated or not indicated:: As noted in the narrative above. Admission Request Was there a request for admission?: No Disposition Plan Disposition Plan: Transfer Critical Care Time Critical Care Time Critical Care Time: Yes Total Critical Care Time (min.): 75 Attestation: The high probability of sudden, clinically significant deterioration in the patient's condition required the highest level of my preparedness to intervene urgently. The services I provided to this patient were to treat and/or prevent clinically significant deterioration. Services included the following: chart data review, reviewing nursing notes and/or old charts, documentation time, corporate learning consultant col laboration regarding findings and treatment options, medication orders and management, direct patient care, vital sign assessments and ordering, interpreting and reviewing diagnostic studies and lab tests. Aggregate critical care time includes only time during which I was engaged in work directly related to the patient's care, as described above, whether at bedside or elsewhere in the Emergency Department. It did not include time spent performing other reported procedures or the services of residents, students, nurses or physician assistants. Discharge Plan Plan Patient Disposition: [facility] Service Needed for Transfer: Ortho and critical care Discharge Disposition comment: Patient is hypotensive elevated lactic acid meets sepsis criteria source is most likely urine after 3 L of fluid his pulse is come down his blood pressure has been stabilized in the low 100s at 1715 hrs. Prescriptions/Referrals Prescriptions/Med Rec: No Action tamsulosin [Flomax] 0.4 MG capsule,extended release 24hr 0.4 mg PO QDAY Qty: 0 finasteride 5 mg tablet 5 mg PO QDAY Patient Comments: TAKE ONE TABLET BY MOUTH EVERY DAY FOR PROSTATE multivitamin Tablet 1 tab PO QAM Patient Comments: TAKE ONE TABLET BY MOUTH EVERY DAY IN THE MORNING metformin 1,000 mg tablet 1 tab PO BID Patient Comments: TAKE ONE TABLET BY MOUTH TWICE DAILY docusate sodium 100 mg capsule 1 cap PO BID Patient Comments: TAKE ONE CAPSULE BY MOUTH TWICE DAILY FOR CONSTIPATION sodium chloride 1,000 mg tablet,soluble 1 tab PO BID Patient Comments: TAKE ONE TABLET BY MOUTH TWICE DAILY Dupixent Syringe 300 mg/2 mL syringe 2 ml SUBCUT PRN PRN (Reason: Pain) Patient Comments: INJECT ONE PEN SUBCUTANEOUSLY EVERY TWO WEEKS Rx Instructions: [id number] clopidogrel 75 mg tablet 75 mg PO DAILY Patient Comments: TAKE ONE TABLET BY MOUTH EVERY DAY FOR CIRCULATION atorvastatin 80 mg tablet 80 mg PO DAILY Patient Comments: TAKE ONE TABLET BY MOUTH EVERY DAY FOR CHOLESTEROL trazodone 50 mg tablet 50 mg PO DAILY Patient Comments: TAKE ONE TABLET BY MOUTH AT BEDTIME FOR SLEEP metoprolol succinate 25 mg tablet extended release 24 hr 37.5 mg PO DAILY Patient Comments: TAKE 1 AND 1/2 TABLETS BY MOUTH EVERY DAY FOR BLOOD PRESSURE cetirizine 10 mg tablet 10 mg PO DAILY Patient Comments: TAKE ONE TABLET BY MOUTH EVERY DAY FOR ALLERGY Referrals: Narciso Mancini DO [Primary Care Provider] - In 1 week Problem List Clinical Impression: Fall, Closed intertrochanteric fracture of left hip, Closed fracture of neck of left humerus, Urinary tract infection, Elevated lactic acid level, Hyponatremia, Acute hypotension, Sepsis Patient/Caregiver Discharge Instructions Print Language: German Stand Alone Forms: Isha Award Info., Patient Portal Info Letter
--- NOTE | 2024-12-31 08:00 | XR_ITS ---
Examination: CT brain head without contrast. 2-D sagittal coronal reconstructions Date and time: December 31, 2024, 0859 hours Indications : Patient fell today with injury to the head, head pain, patient is anticoagulated COMPARISON: August 31, 2024 CTDI: vol (mGy):49.7 DLP: (mGycm):1113 Technique: Multiple CT axial sections of the brain have been obtained, 5 mm slice thickness. Contrast has not been administered. 2-D sagittal, coronal reconstructions have been obtained Low dose protocols were performed. One or more of the following dose reduction techniques were used; automated exposure control, adjustment of the mA and/or KV according to patient size, use of iterative reconstruction technique. Findings: No significant ventricular enlargement. Stable chronic subdural hygromas Intra-axial or extra-axial hemorrhage density is not seen. No mass effect or midline shift Basal cisterns are not remarkable. Fourth ventricle is midline. Cranial vault intact. Old infarct right cerebellar hemisphere Impression: Negative for acute hemorrhage, mass effect or midline shift
--- NOTE | 2024-12-31 08:01 | EKG_ITS ---
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
--- NOTE | 2024-12-31 08:01 | XR_ITS ---
Examination: AP chest single view Technique one AP portable semiupright chest single view Date and time: December 31, 2024 0821 hours INDICATIONS: Patient fell today with injury to the chest, chest pain FINDINGS: Acute fracture humeral neck, left No pneumothorax Normal heart size Severe osteopenia. IMPRESSION: Acute fracture left humeral neck
[2024-12-31] MEDS: MORPHINE SULF INJ 10 MG/ML VIAL 2 MG IVP (08:20)
[2024-12-31] MEDS: ONDANSETRON INJ 2 MG/ML INJ 2 ML 4 MG IV (08:20)
[2024-12-31 09:09] LABS: Basophils # (Auto) 0.1 Thou/mm3 (0.0-0.2); Basophils % (Auto) 0 % (0-2.5); Eosinophils # (Auto) 0.1 Thou/mm3 (0.0-0.5); Eosinophils % (Auto) 1 % (0-10); Hematocrit 26.8 % (41.0-53.0); Hemoglobin 9.7 g/dL (13.5-16.0); Immature Granulocytes Auto 0.21 Thou/mm3 (0.00-0.00); Lymphocytes # (Auto) 1.9 Thou/mm3 (1.0-4.8); Lymphocytes % (Auto) 9 % (10-50); Mean Corpuscular HGB Conc 36.2 g/dl (31.0-37.0); Mean Corpuscular Hemoglobin 34.2 pg (25.0-35.0); Mean Corpuscular Volume 94 fL (80-100); Monocytes # (Auto) 0.7 Thou/mm3 (0.0-0.8); Monocytes % (Auto) 4 % (0-12); Neutrophils # (Auto) 16.9 Thou/mm3 (1.8-7.7); Neutrophils % (Auto) 85 % (37-80); Nucleated Red Blood Cell # 0.00 Thou/mm3 (0.00-0.00); Nucleated Red Blood Cell % 0 /100 WBC (0); Platelet Count 319 Thou/mm3 (140-440); RDW Standard Deviation 50.8 fL (35.1-43.9); Red Blood Count 2.84 Miln/mm3 (4.50-5.90); White Blood Count 19.9 Thou/mm3 (3.8-10.6)
[2024-12-31 09:15] LABS: Lactate (Lactic Acid) 6.5 mMol/L (0.4-2.0)
[2024-12-31 09:22] LABS: INR 1.1 (0.9-1.3); Prothrombin Time 12.3 Seconds (9.0-12.2)
[2024-12-31 09:26] LABS: Base Excess, Venous -10 (-3-3); O2 Saturation, Venous 92 % (96-97); PCO2, Venous 30 mmHg (36-56); PO2, Venous 65 mmHg (15-58); pH, Venous 7.32 (7.33-7.66)
--- NOTE | 2024-12-31 09:26 | PC.NURSE ---
Called She[facility] brady, spoke with Refugio he will speak with Radiologist about reading ct and xray.
[2024-12-31 09:28] LABS: Ammonia 23 uMol/L (11-32)
[2024-12-31 09:37] LABS: Alanine Aminotransferase 20 U/L (10-49); Albumin, Serum 3.4 gm/dL (3.4-4.8); Albumin/Globulin Ratio 1.6 (1.2-2.2); Alcohol, Blood Medical < 3.0 mg/dL (0-10.0); Alkaline Phosphatase 106 U/L (46-116); Anion Gap 11 (7-16); Aspartate Amino Transferase 19 U/L (0-34); BUN/Creatinine Ratio 9 Ratio (12-20); Bilirubin,Total 0.7 mg/dL (0.3-1.2); Blood Urea Nitrogen 7 mg/dL (9-23); Calcium 8.4 mg/dL (8.3-10.6); Calcium (Corrected) 8.9 mg/dL (8.5-10.1); Carbon Dioxide 16.7 mMol/L (20.0-31.0); Chloride 98 mMol/L (98-107); Creatinine (Component) 0.8 mg/dL (0.6-1.3); Estimated Creatinine Clearance 66.1 mL/min (>60); Globulin 2.1 gm/dL (2.3-3.5); Glucose 232 mg/dL (74-106); Osmolality,Calculated 258 (275-295); Potassium 4.2 mMol/L (3.4-5.1); Sodium 126 mMol/L (136-145); Total Protein 5.5 gm/dL (5.7-8.2); Troponin I < 0.020 ng/mL (0.0-0.045); eGFR > 60 See Note
[2024-12-31 09:43] LABS: B-Type Natriuretic Peptide 29 pg/mL (0-100)
[2024-12-31 10:31] LABS: Collection Type, Urine Clean Catch
[2024-12-31 10:38] LABS: Bacteria,Urine Rare; Bilirubin,Urine Negative (Negative); Blood,Urine Trace (Negative); Color,Urine Yellow (Lt Yel-Yel); Glucose, Urine Negative (Negative); Ketones,Urine Negative (Negative); Leukocyte Esterase,Urine Positive (Negative); Nitrite,Urine Negative (Negative); PH,Urine 6.5 (5.0-7.0); Protein,Urine 1+ (Neg - Trace); RBC,Urine 4 /hpf (0-3); Specific Gravity,Urine 1.011 (1.001-1.035); Squamous Epithelial Cell,Urine 1 /hpf (0-5); Urobilinogen,Urine Negative mg/dL (0.0-1.0); WBC,Urine 192 /hpf (0-5)
[2024-12-31 10:42] LABS: Clarity,Urine Hazy (Clear/Hazy); Culture Indicated,Urine Yes
[2024-12-31 10:47] LABS: Amphetamine/Methamp Scrn,U Negative (Negative); Barbiturate Screen,Urine Negative (Negative); Benzodiazepines Screen,Urine Negative (Negative); Benzoylecgonine Screen, Ur Negative (Negative); Fentanyl Screen,Urine Negative (Negative); Opiate Screen,Urine Negative (Negative); THC Screen,Urine Negative (Negative)
--- NOTE | 2024-12-31 11:08 | PC.NURSE ---
Called declan spoke with Lobo regarding all xray results, per Lobo he will contact Dr. Lenore jones reading images.
--- NOTE | 2024-12-31 11:50 | PC.NURSE ---
Patient presents to ED via ambulance with c/o fall at home. Per patient was attempting to use bathroom and fell onto left side. Per patient became dizzy and fell. Patient is alert and oriented, noted bruising and bleeding to left lower portion of eye, noted to have swelling to left shoulder area and is c/o left leg pain. Patient updated with plan of care, and call light placed within reach.
[2024-12-31 12:03] LABS: Reflex Lactate? Y
[2024-12-31] MEDS: SODIUM CHLORIDE 0.9% 500 ML 500 ML 999 ML IV (12:06)
[2024-12-31] MEDS: cefTRIAXone/D5w 1gm IV premix 1 GM/50 ML BAG IV (12:06)
--- NOTE | 2024-12-31 12:22 | XR_ITS ---
Examination: CT left shoulder, without contrast. 2-D sagittal reconstructions. 2-D coronal reconstructions. 3-D reconstructions. Date and time of exam:December 31, 2024 1316 hours INDICATIONS: Patient fell today with injury to the shoulder, shoulder pain. CTDI: vol (mGy):5.82 DLP: (mGycm):143 Technique: Multiple 1.25 mm axial sections of the left shoulder have been obtained. 2-D sagittal and coronal reconstructions have been obtained. 3-D reconstructions have been obtained. Low dose protocols were performed. One or more of the following dose reduction techniques were used; automated exposure control, adjustment of the mA and/or KV according to patient size, use of iterative reconstruction technique. Findings: Acute comminuted impacted fracture humeral neck No dislocation of the humeral head Scapula and clavicle appear intact IMPRESSION: Acute comminuted impacted fracture humeral neck
--- NOTE | 2024-12-31 12:22 | XR_ITS ---
Examination: CT left hip, without contrast. 2-D sagittal reconstructions. 2-D coronal reconstructions. 3-D reconstructions. Date and time of exam:December 31, 2024 at 1322 hours INDICATIONS: Patient fell today with injury to left hip, left hip pain CTDI: vol (mGy):7.3 DLP: (mGycm):255 Technique: Multiple 1.25 mm axial sections of the left hip have been obtained. 2-D sagittal and coronal reconstructions have been obtained. 3-D reconstructions have been obtained. Low dose protocols were performed. One or more of the following dose reduction techniques were used; automated exposure control, adjustment of the mA and/or KV according to patient size, use of iterative reconstruction technique. Findings: Severe osteopenia Acute angulated comminuted intertrochanteric fracture left hip Fracture also involves the greater trochanter the left hip Right hip intact Acute fractures left superior pubic ramus which involve the anterior margin of the left acetabulum, axial image 125 as well as nondisplaced fracture left inferior pubic ramus Also acute fractures right superior inferior pubic rami Hematoma posterior to the anterior rami poorly defined IMPRESSION: Acute angulated comminuted fracture intertrochanteric left hip Acute fractures left superior pubic ramus which involve the anterior margin of the left acetabulum Acute fracture left inferior pubic ramus Acute fractures right superior inferior pubic rami
--- NOTE | 2024-12-31 12:40 | XR_ITS ---
Examination: CT chest with intravenous contrast CT abdomen with intravenous contrast CT pelvis with intravenous contrast 2-D coronal and sagittal reconstructions Time of exam: December 31, 2024 1332 hours INDICATIONS: Ground-level fall today with injury to the chest and abdomen, chest pain abdomen pain CTDI: vol (mGy) : 10 DLP: (mGycm): 796 Technique: Multiple axial images of the chest, abdomen and pelvis with intravenous contrast, 3.0 mm slice thickness. Images obtained post intravenous injection Isovue 370 60 cc. 2-D sagittal and coronal reconstructions. Low dose protocols were performed. One or more of the following dose reduction techniques were used; automated exposure control, adjustment of the mA and/or KV according to patient size, use of iterative reconstruction technique. Findings: Thoracic aorta pulmonary arteries intact No hemopericardium No pneumothorax pulmonary contusion or hemothorax The manubrium and the body the sternum are intact Severe osteopenia No thoracic lumbar or sacral fracture noted Partially visualized fracture left humeral neck Old posterior lower left rib fractures No liver splenic or renal laceration Absent gallbladder Bilateral subcentimeter renal calculi Abdominal aorta intact Negative for pneumoperitoneum Normal appendix Mild thickening of urinary bladder wall, urinary Myers catheter Acute angulated intertrochanteric fractures left hip Fractures right and left superior inferior pubic rami, the left superior pubic ramus fracture extending to the anterior margin of the left acetabulum Poorly defined hematoma in the soft tissue posterior to the anterior pelvic rami Prostatomegaly 60 mm IMPRESSION: No pneumothorax pulmonary contusion or hemothorax Partially visualized fracture left humeral neck No abdominal parenchymal laceration Abdominal aorta intact No free blood in the abdomen or pelvis Acute angulated intertrochanteric fracture left hip Fractures right and left superior inferior pubic rami, the left superior pubic ramus fracture extending to the anterior margin of the left acetabulum
[2024-12-31] MEDS: SODIUM CHLORIDE 0.9% 1905 ML IV (12:52)
--- NOTE | 2024-12-31 13:57 | PC.NURSE ---
SPOKE WITH DAUGHTER APOLONIA AT [phone] UPDATED ON PLAN OF CARE AND ADMISSION.
[2024-12-31 14:02] LABS: Lactic Acid, 3 HR 4.0 mMol/L (0.4-2.0)
--- NOTE | 2024-12-31 16:28 | EVENTNT_ITS ---
Documentation for date of: 12/31/24 Event Note Event Note: Patient is an 79-year-old male with a past medical history of hypertension, diabetes mellitus type 2-rfw-isvkubg-dependent, history of CAD PCI to the right coronary artery X 2 (08/09/2023), BPH who presented to the emergency room on 12/31/2024 with a chief complaint of mechanical fall at home while trying to ambulate and use the restroom. Patient typically uses a walker at baseline, left a walker outside of the restroom and as he was turning around experienced a mechanical fall as he twisted his body. Patient denied any trauma to his skull. Patient still has full sensation of upper and lower extremities. Patient compl aining of left upper extremity pain likely secondary to fracture decreased range of motion. Patient complaining of pain to left lower extremity, 10 out of 10 pain, at hip region. Internal medicine team was called for possible admission.CT head negative. Chest x-ray noted acute fracture of left femoral neck. No pneumothorax. Orthopedics, Dr. Amezcua consulted. CT hip: Acute angulated communicated fracture of the intertrochanter left hip. Acute fractures of left superior pubic ramus which involve the anterior margin of the left acetabulum. Acute fracture of the left inferior pubic ramus. Acute fractures right superior inferior pubic rami. Shoulder CT noted acute communicated impacted fracture humeral neck. Internal medicine team contacted for possible admission, concern for possible internal bleeding given hypotension with a MAP of less than 60 noted at bedside. Recommended patient receive 3 L bolus. Recheck MAP. Consider FAST exam. Chest abdomen pelvis CT given concern for internal bleeding. Follow-up on chest abdomen pelvis CT: No pneumothorax pulmonary contusion or hemothorax. No abdominal parenchymal laceration. Abdominal aorta intact. No free blood in the abdomen or pelvis. Acute angulated intertrochanter fracture left hip. Fractures of the right and left superior inferior pubic rami, the left superior pubic ramus fracture extending to the anterior margin the left acetabulum. Given extensive fractures to the pelvis including the left acetabulum and acute communicated impacted fracture of the humeral neck, internal medicine team reached out to Dr. Amezcua for further recommendations. Orthopedics, Dr. Amezcua, recommending possible transfer. Orthopedics will follow with ER for possible transfer. Dr. Amezcua will update Dr. Walsh. ER team, including, Dr. Walsh updated on CT results and orthopedics recommendations. Follow up with Orthopedics for further recommendations. - The patient's plan was discussed with attending Dr. Nakul Mckeon MD PGY2 Internal Medicine
--- NOTE | 2024-12-31 17:10 | PC.CC ---
Addendum entered by Nica Draper RN 12/31/24 18:49: 1844 received call form Oksana at [facility] and initiated the transfer. She stated it's a shift change and case will be followed by night team. Addendum entered by Nica Draper RN 12/31/24 18:16: 1816 images pushed over to [facility] via [employer]. Addendum entered by Nica Draper RN 12/31/24 17:56: 1755 Called [facility] TC to initiated the transfer. Left VM. Original Note: 1728 clinicals sent to [facility]. [address] Walsh that pt needs to be transferred for fractures right and left superior inferior pubic rami, the left superior pubic ramus fracture extending to the anterior margin of the left acetabulum needs orthopedic services.
--- NOTE | 2024-12-31 17:55 | PD.EDADULT ---
ED General RME/HPI General Chief complaint: Fall Stated complaint: FALL Time Seen by Provider: 12/31/24 07:50 Arrival date/time: 12/31/24 07:48 RME / HPI RME / HPI narrative: 79 year old male with history of CAD s/p PCI on Plavix, PAD, hypertension, diabetes, BPH presents to the ED BIBA from home for evaluation of left upper and lower extremity pain following a ground level fall that occurred this morning. Pain aggravated with movements or palpation. No other injuries or complaints reported. Denied LOC. Patient states at baseline he walks with a walker. Last tetanus unknown. Related Data Home Medications ?Medication ?Instructions ?Recorded ?Confirmed tamsulosin 0.4 mg capsule (Flomax) 0.4 mg PO QDAY ##0 07/15/16 09/01/24 finasteride 5 mg tablet 5 mg PO QDAY 07/05/19 09/01/24 docusate sodium 100 mg capsule 1 cap PO BID 03/04/22 08/10/23 dupilumab 300 mg/2 mL subcutaneous 2 ml subcut PRN PRN Pain 03/04/22 08/10/23 syringe (Dupixent) metformin 1,000 mg tablet 1 tab PO BID 03/04/22 09/01/24 multivitamin 1 tab PO QAM 03/04/22 09/01/24 sodium chloride 1,000 mg soluble 1 tab PO BID 03/04/22 09/01/24 tablet Held on 09/03/24. Instructions: Resume on 09/10/24. Hold until repeat CMP in 1 week atorvastatin 80 mg tablet 80 mg PO DAILY 09/01/24 09/01/24 cetirizine 10 mg tablet 10 mg PO DAILY 09/01/24 09/01/24 clopidogrel 75 mg tablet 75 mg PO DAILY 09/01/24 09/01/24 metoprolol succinate 25 mg 37.5 mg PO DAILY 09/01/24 09/01/24 tablet,extended release 24 hr trazodone 50 mg tablet 50 mg PO DAILY 09/01/24 09/01/24 Allergies Allergy/AdvReac Type Severity Reaction Status Date / Time naproxen Allergy Severe DIFFICULTY Verified 12/31/24 08:17 BREATHING ED Exam Narrative Physical exam: Physical Exam: General: The vital signs were reviewed. Initially seen in the ambulance bay but later he was found to be hypotensive when he was moved to a room. The patient is non-toxic, in no apparent distress and appears healthy with a patent airway, no respiratory distress and has no apparent circulatory problems. Head & Scalp: Normocephalic, atraumatic. Face: Appears normal and is without lesions, deformity. Ears: Left external pinna appears normal. Right external pinna appears normal. Eyes: The sclera is anicteric. No obvious photophobia. The Left and Right Orbit/Lid/Conjunctiva appears normal without swelling, discoloration or injection. Nose: The nose is without deformity, discharge or tenderness; Throat: Appears normal. The mucous membranes are pink and moist without exudates, redness or mass seen. The tongue appears normal. Neck: The neck is supple and no apparent mass or adenopathy. Chest: The chest wall is normal in size and symmetry and has no chest wall tenderness or crepitus. The patient displays normal ventilator effort without retractions, accessory muscle use and has adequate air movement bilaterally with no wheezes and no rales. Cardiovascular: Regular rate and rhythm; No murmurs, rubs, or gallops; Gastrointestinal: The abdomen appears normal. No obvious hernias or mass. The abdomen is soft denies pain and benign, non-distended, with no pain, no guarding and no rebound tenderness. Bowel sounds are present and normal sounding. No CVA tenderness. Genitourinary: Back/Spine: Denies any pain Extremities/Musculoskeletal/lymphatic: The the right upper arm appears to have no injury The left clavicle is unremarkable the left shoulder and proximal humerus is very tender to palpation. He holds the arm still. The distal humerus elbow forearm wrist and hand is unremarkable with neurovascularly intact. Patient complains of right thigh pain and has lots of atrophy. He moves his hip well on that side with no obvious injury or pain the knee and distal right leg are unremarkable. Neurovascular intact. The patient has left hip pain and has limited range of motion. The knee distal leg ankle and foot are unremarkable. Neurovascular intact. Patient's pelvis appears to be stable but he is tender in his legs when trying to palpate his pelvis. There is no crepitus felt. Skin: The skin is warm, dry and intact. No rashes. No petechia. No purpura. No abnormal bruising. The color is appropriate with no cyanosis. Mental status/Psychiatric: Mental status is appropriate for age. The patient has no apparent delusions, visual hallucinations, no apparent audible hallucinations. The patient has no apparent suicidal thoughts/ideation and no apparent homicidal thoughts/ideation. Neurological: The patient is awake, alert, interactive, cordial, cooperative and is oriented to name and situation. The patient follows commands and answers historical question with no impairment. There is no visual disturbance apparent. The pupils are equal and reactive bilaterally with normal eye movements and no diplopia The bilateral upper and lower extremities have no obvious deficits. The gait, station and balance were not tested due to acuity Course Quality Measures Pertinent labs: 12/31/24 12/31/24 08:57 13:48 Lactic Acid 6.5 H* mMol/L 4.0 H mMol/L (0.4-2.0) (0.4-2.0) sepsis Orders Category Date Time Status Bedside Blood Glucose NOW Care 12/31/24 08:[address] Screening NOW Care 12/31/24 12:43 Active EKG (ED ONLY) *Do not use* NOW Care 12/31/24 08:01 Completed Myers [Urinary Catheter] X1 Care 12/31/24 10:24 Active Miscellaneous Nursing Order NOW Care 12/31/24 07:50 Active sling [Splint / Immobilizer] STAT Care 12/31/24 11:48 Active Referral - Magnetic Tape Winder Stat Cons 12/31/24 17:[address] chest abdomen pelvis w Stat Exams 12/31/24 12:[address] head/brain wo con Stat Exams 12/31/24 08:[address] hip LT wo con Stat Exams 12/31/24 12:[address] shoulder LT wo con Stat Exams 12/31/24 12:22 Completed EKG (ED Only) Stat Exams 12/31/24 08:01 Draft XR chest 1V portable Stat Exams 12/31/24 08:01 Completed XR femur BI min 2V Stat Exams 12/31/24 07:50 Completed XR humerus LT MIN 2V Stat Exams 12/31/24 07:50 Completed XR pelvis 1-2V Stat Exams 12/31/24 07:50 Completed XR shoulder LT min 2V Stat Exams 12/31/24 07:50 Completed Alcohol, Blood Medical Stat Lab 12/31/24 08:57 Completed Ammonia Stat Lab 12/31/24 08:57 Completed B-Type Natriuretic Peptide Stat Lab 07/22/25 08:57 Completed Blood Culture (Lab) Stat Lab 12/31/24 08:57 Received CBC Stat Lab 12/31/24 08:57 Completed CBC Stat Lab 12/31/24 17:48 Ordered Comprehensive Metabolic Panel Stat Lab 12/31/24 08:57 Completed Drug Screen,Urine Stat Lab 12/31/24 10:20 Completed Lactate (Lactic Acid) Stat Lab 12/31/24 08:57 Completed Lactate (Lactic Acid) Stat Lab 12/31/24 17:48 Ordered Lactic Acid, 3 HR Stat Lab 12/31/24 13:48 Completed Prothrombin Time with INR Stat Lab 12/31/24 08:57 Completed Troponin I Stat Lab 12/31/24 08:57 Completed Type and Screen Stat Lab 12/31/24 08:57 Completed Urinalysis Stat Lab 12/31/24 10:20 Completed Urinalysis, C/S if Indicated Stat Lab 12/31/24 10:20 Completed Urine Culture Stat Lab 12/31/24 10:20 Received Venous Blood Gas Stat Lab 12/31/24 08:57 Completed Morphine Inj Med 12/31/24 08:00 Discontinued 2 mg IVP X1 ONE Ondansetron Inj [Zofran Inj] Med 12/31/24 08:00 Discontinued 4 mg IV X1 ONE Sodium Chloride 0.9% 1000 ml [Ns] 1,000 ml Med 12/31/24 11:44 Active IV 150 mls/hr Sodium Chloride 0.9% 1000 ml [Ns] 1,270 ml Med 12/31/24 17:47 Active IV 1,270 mls/hr Sodium Chloride 0.9% 1000 ml [Ns] 1,905 ml Med 12/31/24 12:40 Discontinued IV 1,905 mls/hr Sodium Chloride 0.9% 500 ml [Ns] 500 ml Med 12/31/24 11:44 Discontinued IV 999 mls/hr cefTRIAXone/D5w 1gm IV premix [Rocephin/D5w 1gm IV Med 12/31/24 11:44 Discontinued premix] 1 gm in 50 ml IV X1 Vital Signs Vital signs: Vital Signs Temperature 97.6 F 12/31/24 07:50 Pulse Rate 70 12/31/24 07:50 Respiratory Rate 17 12/31/24 07:50 Blood Pressure 113/62 12/31/24 07:50 Pulse Oximetry (%) 98 12/31/24 07:50 Oxygen Delivery Method Room Air 12/31/24 07:50 Discharge Plan Plan Patient Disposition: [facility] Acute Care Fac Service Needed for Transfer: Ortho and critical care Discharge Disposition comment: Patient is hypotensive elevated lactic acid meets sepsis criteria source is most likely urine after 3 L of fluid his pulse is come down his blood pressure has been stabilized in the low 100s at 1715 hrs. Prescriptions/Referrals Prescriptions/Med Rec: No Action tamsulosin [Flomax] 0.4 MG capsule,extended release 24hr 0.4 mg PO QDAY Qty: 0 finasteride 5 mg tablet 5 mg PO QDAY Patient Comments: TAKE ONE TABLET BY MOUTH EVERY DAY FOR PROSTATE multivitamin Tablet 1 tab PO QAM Patient Comments: TAKE ONE TABLET BY MOUTH EVERY DAY IN THE MORNING metformin 1,000 mg tablet 1 tab PO BID Patient Comments: TAKE ONE TABLET BY MOUTH TWICE DAILY docusate sodium 100 mg capsule 1 cap PO BID Patient Comments: TAKE ONE CAPSULE BY MOUTH TWICE DAILY FOR CONSTIPATION sodium chloride 1,000 mg tablet,soluble 1 tab PO BID Patient Comments: TAKE ONE TABLET BY MOUTH TWICE DAILY Dupixent Syringe 300 mg/2 mL syringe 2 ml SUBCUT PRN PRN (Reason: Pain) Patient Comments: INJECT ONE PEN SUBCUTANEOUSLY EVERY TWO WEEKS Rx Instructions: [id number] clopidogrel 75 mg tablet 75 mg PO DAILY Patient Comments: TAKE ONE TABLET BY MOUTH EVERY DAY FOR CIRCULATION atorvastatin 80 mg tablet 80 mg PO DAILY Patient Comments: TAKE ONE TABLET BY MOUTH EVERY DAY FOR CHOLESTEROL trazodone 50 mg tablet 50 mg PO DAILY Patient Comments: TAKE ONE TABLET BY MOUTH AT BEDTIME FOR SLEEP metoprolol succinate 25 mg tablet extended release 24 hr 37.5 mg PO DAILY Patient Comments: TAKE 1 AND 1/2 TABLETS BY MOUTH EVERY DAY FOR BLOOD PRESSURE cetirizine 10 mg tablet 10 mg PO DAILY Patient Comments: TAKE ONE TABLET BY MOUTH EVERY DAY FOR ALLERGY Referrals: Narciso Mancini DO [Primary Care Provider] - In 1 week Problem List Clinical Impression: Fall, Closed intertrochanteric fracture of left hip, Closed fracture of neck of left humerus, Urinary tract infection, Elevated lactic acid level, Hyponatremia, Acute hypotension, Sepsis Patient/Caregiver Discharge Instructions Print Language: Maori Stand Alone Forms: Isha Award Info., Patient Portal Info Letter MDM Medication Administration(s) Medication Administration History Sodium Chloride (Ns) 1,000 mls @ 150 mls/hr IV .Q6H40M ONE Stop: 12/31/24 18:23 Sodium Chloride (Ns) 1,270 mls @ 1,270 mls/hr 20 ml/kg infuse over 60 min (1270 ml) IV .Q1H ONE Stop: 12/31/24 18:46 Discontinued Medications Ceftriaxone Sodium/Dextrose (Rocephin/D5w 1gm Iv Premix) 1 gm in 50 mls @ 100 mls/hr IV X1 ONE Stop: 12/31/24 12:13 Last Infusion: 12/31/24 13:58 Dose: Infused Documented By: Admin: 12/31/24 12:06 Dose: 100 mls/hr Documented By: IJEOMA Sodium Chloride (Ns) 500 mls @ 999 mls/hr IV .Q31M ONE Stop: 12/31/24 12:14 Last Infusion: 12/31/24 12:58 Dose: Infused Documented By: Admin: 12/31/24 12:06 Dose: 999 mls/hr Documented By: IJEOMA Sodium Chloride (Ns) 1,905 mls @ 1,905 mls/hr 30 ml/kg infuse over 60 min (1905 ml) IV .Q1H ONE; Protocol Stop: 12/31/24 13:39 Last Infusion: 12/31/24 15:36 Dose: Infused Documented By: Admin: 12/31/24 12:52 Dose: 1,905 mls/hr Documented By: IJEOMA Morphine Sulfate (Morphine Sulf Inj 10 Mg/Ml Vial) 2 mg IVP X1 ONE Stop: 12/31/24 08:01 Last Admin: 12/31/24 08:20 Dose: 2 mg Documented By: IJEOMA Ondansetron HCl (Ondansetron Inj 2 Mg/Ml Inj 2 Ml) 4 mg IV X1 ONE; Protocol Stop: 12/31/24 08:01 Last Admin: 12/31/24 08:20 Dose: 4 mg Documented By: IJEOMA
[2024-12-31 18:02] LABS: Lactate (Lactic Acid) 1.8 mMol/L (0.4-2.0)
[2024-12-31] MEDS: SODIUM CHLORIDE 0.9% 1270 ML IV (18:08)
--- NOTE | 2024-12-31 18:30 | EDNOTE_ITS ---
Emergency Room Addendum Addendum Narrative: 1800: Care assumed from Dr. Walsh (emergency physician). Past medical, surgical, social and family history reviewed. Vitals and home medications reviewed. Results and treatment plan discussed. They will assume the care of the patient at this time and will follow the patient, pending transfer. The following addendum documentation note is intended to reflect any pending information, findings, or radiology results not included in the patient?s initi al chart by the previous shift scribe. 1947: Discussed with [facility] for transfer. Reviewed the patient?s HPI, PMHx, lab and/or radiology results. Treatment plan was discussed. 2056: Discussed with Dr. Lobo Walton at [facility] for transfer. Reviewed the patient?s HPI, PMHx, lab and/or radiology results. Treatment plan was discussed. Will accept patient for transfer and higher-level of treatment. 2129: EMS transported patient to [facility].
[2024-12-31 18:33] LABS: Basophils # (Auto) 0.0 Thou/mm3 (0.0-0.2); Basophils % (Auto) 0 % (0-2.5); Eosinophils # (Auto) 0.0 Thou/mm3 (0.0-0.5); Eosinophils % (Auto) 0 % (0-10); Immature Granulocytes Auto 0.06 Thou/mm3 (0.00-0.00); Lymphocytes # (Auto) 0.5 Thou/mm3 (1.0-4.8); Lymphocytes % (Auto) 5 % (10-50); Mean Corpuscular HGB Conc 36.3 g/dl (31.0-37.0); Mean Corpuscular Hemoglobin 33.9 pg (25.0-35.0); Mean Corpuscular Volume 93 fL (80-100); Monocytes # (Auto) 0.7 Thou/mm3 (0.0-0.8); Monocytes % (Auto) 7 % (0-12); Neutrophils # (Auto) 8.3 Thou/mm3 (1.8-7.7); Neutrophils % (Auto) 87 % (37-80); Nucleated Red Blood Cell # 0.00 Thou/mm3 (0.00-0.00); Nucleated Red Blood Cell % 0 /100 WBC (0); Platelet Count 171 Thou/mm3 (140-440); RDW Standard Deviation 50.3 fL (35.1-43.9); Red Blood Count 1.83 Miln/mm3 (4.50-5.90); White Blood Count 9.5 Thou/mm3 (3.8-10.6)
[2024-12-31 18:37] LABS: Hematocrit 17.1 % (41.0-53.0); Hemoglobin 6.2 g/dL (13.5-16.0)
--- NOTE | 2024-12-31 18:38 | PD.ORTHCON ---
HPI Consult details Reason for consultation narrative: Pain left shoulder left hip History of present illness: Patient is an 79-year-old who fell at home he is a household ambulator with a walker. States he last drove 4 years ago. His daughter takes care of all of his and his 's needs. Daughter on the same piece of property. x-rays showe complex proximal left shoulder fracture and a severely angulated left peritrochanteric hip fracture. Past Medical History Past Medical History NEUROLOGIC: Positive Neurological Disorders and Transient Ischemic Attacks (TIA); Negative Seizures CARDIAC: Positive Cardiac Disorders, Hypercholesterolemia and Hypertension; Negative Congestive Heart Failure RESPIRATORY: Negative Chronic Obstructive Pulmonary Disease (COPD) or Asthma GASTROINTESTINAL: Positive Gastrointestinal Disorders and Gall Bladder Disease GENITOURINARY: Positive Genitourinary Disorders and Benign Prostatic Hyperplasia; Negative Renal Disease MUSCULOSKELETAL: Negative Musculoskeletal Disorders or Arthritis ENT: Positive Cataracts ENDOCRINE: Positive Endocrine Disorders; Negative Diabetes Mellitus Type 1 or Diabetes Mellitus Type 2 HEMATOLOGIC: Negative Blood Disorders or Sickle Cell Disease PSYCHO/SOCIAL: Positive Anxiety OTHER HISTORY: Positive Chicken Pox; Negative Hospitalization, Autoimmune Disease, Down Syndrome, Developmental Delay, Shingles, Falls, Blood Transfusions, Blood Transfusion Reaction, Anesthesia Reactions, Measles, Mumps, Clostridium Difficile or Cancer Family History FAMILY HISTORY: Positive Family Cardiac Disorders and Family Cancer; Negative Family Psychiatric Problems, Family Respiratory Disorders, Family Gastrointestinal Problems, Family Surgery or Family Anesthesia Reaction Surgical History SURGICAL: Positive Coronary Stent, Abdominal Surgery and of Back Surgery Social History SMOKING STATUS: Current every day smoker SUBSTANCE USE: does not use Meds Home Medications and Allergies Home Medications ?Medication ?Instructions ?Recorded ?Confirmed ?Type tamsulosin 0.4 mg capsule (Flomax) 0.4 mg PO QDAY ##0 07/15/16 09/01/24 History finasteride 5 mg tablet 5 mg PO QDAY 07/05/19 09/01/24 History docusate sodium 100 mg capsule 1 cap PO BID 03/04/22 08/10/23 History dupilumab 300 mg/2 mL subcutaneous 2 ml subcut PRN PRN Pain 03/04/22 08/10/23 History syringe (Dupixent) metformin 1,000 mg tablet 1 tab PO BID 03/04/22 09/01/24 History multivitamin 1 tab PO QAM 03/04/22 09/01/24 History sodium chloride 1,000 mg soluble 1 tab PO BID 03/04/22 09/01/24 History tablet Held on 09/03/24. Instructions: Resume on 09/10/24. Hold until repeat CMP in 1 week atorvastatin 80 mg tablet 80 mg PO DAILY 09/01/24 09/01/24 History cetirizine 10 mg tablet 10 mg PO DAILY 09/01/24 09/01/24 History clopidogrel 75 mg tablet 75 mg PO DAILY 09/01/24 09/01/24 History metoprolol succinate 25 mg 37.5 mg PO DAILY 09/01/24 09/01/24 History tablet,extended release 24 hr trazodone 50 mg tablet 50 mg PO DAILY 09/01/24 09/01/24 History Allergies Allergy/AdvReac Type Severity Reaction Status Date / Time naproxen Allergy Severe DIFFICULTY Verified 12/31/24 08:17 BREATHING Exam Vital Signs Temp Pulse Resp BP Pulse Ox O2 Del Method 97.8 F 100 18 109/68 99 Room Air 12/31/24 18:00 12/31/24 18:00 12/31/24 18:00 12/31/24 18:00 12/31/24 18:00 12/31/24 18:00 Blood pressure 109/68 pulse Narrative Exam Patient is alert and knows that he is in the hospital. He knows that he has fractured his left shoulder left hip. Swelling present left shoulder. No swelling left wrist left fingers. No pain in right upper extremity. Right hip flexed. So there is severe atrophy right lower extremity including thigh, leg. I cannot palpate pulses but foot warm Examination lower extremities shows that the left lower extremity short. Atrophy left lower extremity not as severe right lower extremity I cannot feel pulses but it is not unusual. Results - Ortho Labs 12/31/24 17:58 12/31/24 08:57 Labs: Short CBC 12/31/24 12/31/24 Range/Units 08:57 17:58 WBC 19.9 H 9.5 D (3.8-10.6) Thou/mm3 Hgb 9.7 L 6.2 L* D (13.5-16.0) g/dL Hct 26.8 L 17.1 L* (41.0-53.0) % Plt Count 319 171 D (140-440) Thou/mm3 BMP 12/31/24 08:57 Sodium 126 L Potassium 4.2 Chloride 98 Carbon Dioxide 16.7 L BUN 7 L Creatinine 0.8 Glucose 232 H Calcium 8.4 Cardiac Enzymes 12/31/24 Range/Units 08:57 Troponin I < 0.020 (0.0-0.045) ng/mL Liver Function 12/31/24 Range/Units 08:57 Total Bilirubin 0.7 (0.3-1.2) mg/dL AST 19 (0-34) U/L ALT 20 (10-49) U/L Alkaline Phosphatase 106 (46-116) U/L Albumin 3.4 (3.4-4.8) gm/dL Urine 12/31/24 Range/Units 10:20 Urine Color Yellow (Lt Yel-Yel) Urine Clarity Hazy (Clear/Hazy) Urine pH 6.5 (5.0-7.0) Ur Specific [place] 1.011 (1.001-1.035) Urine Protein 1+ A (Neg - Trace) Urine Glucose (UA) Negative (Negative) Initial hemoglobin 9.5, hemoglobin just 10 minutes ago shows a hemoglobin of 6.2 ABG Interpretation ABG results: 12/31/24 08:57 VBG pH 7.32 L VBG pCO2 30 L VBG pO2 65 H VBG Base Excess -10 L Assessment & Plan Additional Assessment Additional comments: Patient has multiple medical problems including hypertension diabetes coronary artery disease he is had a right coronary artery stent, femoral stent. Recent coronary angiography Dr. Damian Mcdaniel who noted 50% stenosis LAD. This was done August 2024 In addition the present time looks like the patient has a UTI with 170 white cells in urine. Troponin was within normal limits Plan Patient has an impacted left humeral neck fracture with marked angulation. Complex fracture proximal femur peritrochanteric type. Severe osteoarthritis right hip. His multiple medical problems severely fractured left shoulder left hip I feel he would be best managed in a higher level of care. Obviously right now high risk for transfer. Dr. Garcia aware recent hemoglobin of 6. While in ER with low BP he received 2 L of fluid. I am sure some of the low hemoglobin is delusional. Hemoglobin 12 in 2019. Hemoglobin 8.8 August of this year at time of coronary angiography. I called Olamide Scott telephone #[phone] and it was busy and then I called Colette Andersen telephone #[phone] and it was also busy
[2024-12-31 19:29] LABS: Path Review Blood Smear Sent to Pathologist
[2024-12-31] MEDS: fentaNYL CIT INJ 50 mCg/ML AMP 2ML IVP (19:29)
[2024-12-31] MEDS: ONDANSETRON INJ 2 MG/ML INJ 2 ML 4 MG IVP (19:29)
[2024-12-31] MEDS: HYDROmorphone INJ 2 MG/ML VIAL 0.5 MG IVP (23:15)
== END 2024-12-31 23:21 | disposition short-term general hospital (02) ==
PROVIDERS: Emergency Provider Emergency Medicine; PCP Internal Medicine
DX: A41.9 Sepsis, unspecified organism (principal); N39.0 Urinary tract infection, site not specified; S42.212A Unspecified displaced fracture of surgical neck of left humerus, initial encounter for closed fracture; W18.30XA Fall on same level, unspecified, initial encounter; S32.592A Other specified fracture of left pubis, initial encounter for closed fracture; S72.142A Displaced intertrochanteric fracture of left femur, initial encounter for closed fracture; S09.90XA Unspecified injury of head, initial encounter; S29.9XXA Unspecified injury of thorax, initial encounter; D64.9 Anemia, unspecified; R94.31 Abnormal electrocardiogram [ECG] [EKG]
CPT/HCPCS: 51702; 36415; 36430; 70450; 71045; 71260; 72170; 73030; 73060; 73200; 73552; 73700; 74177; 80053; 80307; 80320; 81001; 82140; 82803; 83605; 83880; 84484; 85025; 85610; 86850; 86900; 86901; 86923; 87040; 87077; 87086; 87186; 93005; 96361; 96365; 96366; 96375; 96376; 99284; A4649; J0696; J1171; J2270; J2405; J3010; J7030; J7999; P9016; Q9967; G0480

== ENCOUNTER 2025-01-13 19:28 | Emergency (ER) | payer MEDICARE, MEDICAID, SELFPAY ==
[2025-01-13 19:30] VITALS: BP 138/65; PULSE 80; RESP 18; TEMP 36.9; O2SAT 97
--- NOTE | 2025-01-13 19:31 | PD.EDADULT ---
ED General RME/HPI General Chief complaint: General Adult/Misc Complain Stated complaint: TRANSFUSION Time Seen by Provider: 01/13/25 19:30 Arrival date/time: 01/13/25 19:28 CC: Abnormal lab HPI patient presents to the ER via EMS who state they reported hemoglobin of 0.6. Patient is on clopidogrel he is awake alert oriented stable vital signs stating he understands he is here because of a possible transfusion patient denies chest pain shortness of breath or difficulty breathing. Related Data Home Medications ?Medication ?Instructions ?Recorded ?Confirmed tamsulosin 0.4 mg capsule (Flomax) 0.4 mg PO QDAY ##0 07/15/16 09/01/24 finasteride 5 mg tablet 5 mg PO QDAY 07/05/19 09/01/24 docusate sodium 100 mg capsule 1 cap PO BID 03/04/22 08/10/23 dupilumab 300 mg/2 mL subcutaneous 2 ml subcut PRN PRN Pain 03/04/22 08/10/23 syringe (Intrallect) metformin 1,000 mg tablet 1 tab PO BID 03/04/22 09/01/24 multivitamin 1 tab PO QAM 03/04/22 09/01/24 sodium chloride 1,000 mg soluble 1 tab PO BID 03/04/22 09/01/24 tablet Held on 09/03/24. Instructions: Resume on 09/10/24. Hold until repeat CMP in 1 week atorvastatin 80 mg tablet 80 mg PO DAILY 09/01/24 09/01/24 cetirizine 10 mg tablet 10 mg PO DAILY 09/01/24 09/01/24 clopidogrel 75 mg tablet 75 mg PO DAILY 09/01/24 09/01/24 metoprolol succinate 25 mg 37.5 mg PO DAILY 09/01/24 09/01/24 tablet,extended release 24 hr trazodone 50 mg tablet 50 mg PO DAILY 09/01/24 09/01/24 Allergies Allergy/AdvReac Type Severity Reaction Status Date / Time naproxen Allergy Severe DIFFICULTY Verified 12/31/24 08:17 BREATHING Review of Systems Review of Systems Narrative Review of Systems: GEN: No fever, no chills, no weight loss EYES: No discharge, no visual changes, no pain HEENT: No ear pain, no congestion, no sore throat PULM: No shortness of breath, no cough, no congestion CV: No chest pain, no dyspnea on exertion, no palpitations GI: No nausea, no vomiting, no diarrhea, no pain, no constipation : No frequency, no urgency, no dysuria MUSC/SKEL: No joint pain, no back pain SKIN: No rash PSYCH: No hallucinations, no depression HEME/LYMPH: No easy bleeding or bruising tendencies NEURO: No weakness, no headache Past Medical History Past Medical History NEUROLOGIC: Positive Neurological Disorders and Transient Ischemic Attacks (TIA); Negative Seizures CARDIAC: Positive Cardiac Disorders, Hypercholesterolemia and Hypertension; Negative Congestive Heart Failure RESPIRATORY: Negative Chronic Obstructive Pulmonary Disease (COPD) or Asthma GASTROINTESTINAL: Positive Gastrointestinal Disorders and Gall Bladder Disease GENITOURINARY: Positive Genitourinary Disorders and Benign Prostatic Hyperplasia; Negative Renal Disease MUSCULOSKELETAL: Negative Musculoskeletal Disorders or Arthritis ENT: Positive Cataracts ENDOCRINE: Positive Endocrine Disorders; Negative Diabetes Mellitus Type 1 or Diabetes Mellitus Type 2 HEMATOLOGIC: Negative Blood Disorders or Sickle Cell Disease PSYCHO/SOCIAL: Positive Anxiety OTHER HISTORY: Positive Chicken Pox; Negative Hospitalization, Autoimmune Disease, Down Syndrome, Developmental Delay, Shingles, Falls, Blood Transfusions, Blood Transfusion Reaction, Anesthesia Reactions, Measles, Mumps, Clostridium Difficile or Cancer Family History FAMILY HISTORY: Positive Family Cardiac Disorders and Family Cancer; Negative Family Psychiatric Problems, Family Respiratory Disorders, Family Gastrointestinal Problems, Family Surgery or Family Anesthesia Reaction Surgical History SURGICAL: Positive Coronary Stent and Abdominal Surgery Social History SMOKING STATUS: Current every day smoker SUBSTANCE USE: does not use ED Exam Narrative Physical exam: [General: not in any any acute distress Head normocephalic HEENT: Within acceptable limits Neck is supple nontender Chest equal chest rise nontender to palpation Respiratory: Clear to auscultation no wheezes crackles or rubs CV: Rate rhythm is regular no murmurs rubs or clicks Abdomen is distended secondary to body habitus soft nontender no masses positive bowel sounds all 4 quadrants GI: Rectum, moderate rectal tone no hemorrhoids guaiac is negative. Back: No CVA tenderness no spinous process tenderness from cervical spine thoracic and lumbar spine Skin: Pale, intact no petechiae rash induration ulceration or crepitus Extremities: Left arm is in a sling, with nonpitting edema cap refill less than 2 seconds neurosensory intact note: This is secondary to an arm fracture recently. Moving all extremity against resistance cap refill less than 2 seconds neurosensory intact Neuro: Awake alert oriented x3 Glascow coma 15 no focal deficits] Course Quality Measures none Orders Category Date Time Status Transfuse,blood/blood products NOW Care 01/13/25 20:24 Completed CBC Stat Lab 01/13/25 19:52 Completed CMP [Comprehensive Metabolic Panel] Stat Lab 01/13/25 19:52 Completed PT [Prothrombin Time with INR] Stat Lab 01/13/25 19:52 Completed PTT [Partial Thromboplastin Time] Stat Lab 01/13/25 19:52 Completed Path Review Blood Smear Stat Lab 01/13/25 19:52 Completed Type and Screen Stat Lab 01/13/25 19:52 Completed prbc [Red Blood Cells] Stat Lab 01/13/25 19:52 Completed Furosemide [Lasix Inj] Med 01/13/25 21:11 Discontinued 20 mg IVP X1 ONE Vital Signs Vital signs: Vital Signs Temperature 98.5 F 01/13/25 19:30 Pulse Rate 80 01/13/25 19:30 Respiratory Rate 18 01/13/25 19:30 Blood Pressure 138/65 H 01/13/25 19:30 Pulse Oximetry (%) 97 01/13/25 19:30 Oxygen Delivery Method Room Air 01/13/25 19:30 Discharge Plan Plan Patient Disposition: HOME (Self Care) Patient condition on transfer: Stable Prescriptions/Referrals Prescriptions/Med Rec: No Action tamsulosin [Flomax] 0.4 MG capsule,extended release 24hr 0.4 mg PO QDAY Qty: 0 finasteride 5 mg tablet 5 mg PO QDAY Patient Comments: TAKE ONE TABLET BY MOUTH EVERY DAY FOR PROSTATE multivitamin Tablet 1 tab PO QAM Patient Comments: TAKE ONE TABLET BY MOUTH EVERY DAY IN THE MORNING metformin 1,000 mg tablet 1 tab PO BID Patient Comments: TAKE ONE TABLET BY MOUTH TWICE DAILY docusate sodium 100 mg capsule 1 cap PO BID Patient Comments: TAKE ONE CAPSULE BY MOUTH TWICE DAILY FOR CONSTIPATION sodium chloride 1,000 mg tablet,soluble 1 tab PO BID Patient Comments: TAKE ONE TABLET BY MOUTH TWICE DAILY Dupixent Syringe 300 mg/2 mL syringe 2 ml SUBCUT PRN PRN (Reason: Pain) Patient Comments: INJECT ONE PEN SUBCUTANEOUSLY EVERY TWO WEEKS Rx Instructions: [id number] clopidogrel 75 mg tablet 75 mg PO DAILY Patient Comments: TAKE ONE TABLET BY MOUTH EVERY DAY FOR CIRCULATION atorvastatin 80 mg tablet 80 mg PO DAILY Patient Comments: TAKE ONE TABLET BY MOUTH EVERY DAY FOR CHOLESTEROL trazodone 50 mg tablet 50 mg PO DAILY Patient Comments: TAKE ONE TABLET BY MOUTH AT BEDTIME FOR SLEEP metoprolol succinate 25 mg tablet extended release 24 hr 37.5 mg PO DAILY Patient Comments: TAKE 1 AND 1/2 TABLETS BY MOUTH EVERY DAY FOR BLOOD PRESSURE cetirizine 10 mg tablet 10 mg PO DAILY Patient Comments: TAKE ONE TABLET BY MOUTH EVERY DAY FOR ALLERGY Referrals: No Primary/Family,Physician [Primary Care Provider] - In 1 week Problem List Clinical Impression: Anemia Patient/Caregiver Discharge Instructions Education Materials: Anemia Print Language: Vietnamese Stand Alone Forms: Isha Award Info., Patient Portal Info Letter PA/[employer]SULT[employer] VICE PRESIDENT [employer] (EX ) Supervising Physician PA/[employer] VICE PRESIDENT [employer] (EX ) Supervising Physician: Dalton Duncan ENP MDM Lab Interpretation Lab(s) interpretation(s): CBC shows the patient has no leukocytosis and H&H of 6.4 and 19.7 respectively. Platelets of 364. Coags within acceptable limits CMP shows no significant electrolyte imbalances renal impairment transaminitis or T. bili elevation. Medication Administration(s) Medication Administration History Discontinued Medications Furosemide (Furosemide Inj 10 Mg/Ml Vial 2 Ml) 20 mg IVP X1 ONE Stop: 01/13/25 21:12 Last Admin: 01/14/25 05:08 Dose: Not Given Documented By: SAMEER Non-Admin Reason: Cancelled by Provider
[2025-01-13 19:55] VITALS: PULSE 84; RESP 19; O2SAT 97; BMI 20.7
[2025-01-13 20:01] LABS: Basophils # (Auto) 0.0 Thou/mm3 (0.0-0.2); Basophils % (Auto) 0 % (0-2.5); Eosinophils # (Auto) 0.1 Thou/mm3 (0.0-0.5); Eosinophils % (Auto) 1 % (0-10); Immature Granulocytes Auto 0.07 Thou/mm3 (0.00-0.00); Lymphocytes # (Auto) 0.8 Thou/mm3 (1.0-4.8); Lymphocytes % (Auto) 10 % (10-50); Mean Corpuscular HGB Conc 32.5 g/dl (31.0-37.0); Mean Corpuscular Hemoglobin 30.6 pg (25.0-35.0); Mean Corpuscular Volume 94 fL (80-100); Monocytes # (Auto) 0.6 Thou/mm3 (0.0-0.8); Monocytes % (Auto) 7 % (0-12); Neutrophils # (Auto) 6.9 Thou/mm3 (1.8-7.7); Neutrophils % (Auto) 82 % (37-80); Nucleated Red Blood Cell # 0.00 Thou/mm3 (0.00-0.00); Nucleated Red Blood Cell % 0 /100 WBC (0); Platelet Count 364 Thou/mm3 (140-440); RDW Standard Deviation 74.7 fL (35.1-43.9); Red Blood Count 2.09 Miln/mm3 (4.50-5.90); White Blood Count 8.4 Thou/mm3 (3.8-10.6)
[2025-01-13 20:17] VITALS: BP 137/69; PULSE 77; RESP 17; O2SAT 100
[2025-01-13 20:21] LABS: Hematocrit 19.7 % (41.0-53.0); Hemoglobin 6.4 g/dL (13.5-16.0)
[2025-01-13 20:23] LABS: Alanine Aminotransferase 11 U/L (10-49); Albumin, Serum 2.8 gm/dL (3.4-4.8); Albumin/Globulin Ratio 1.1 (1.2-2.2); Alkaline Phosphatase 150 U/L (46-116); Anion Gap 8 (7-16); Aspartate Amino Transferase 20 U/L (0-34); BUN/Creatinine Ratio 18 Ratio (12-20); Bilirubin,Total 1.2 mg/dL (0.3-1.2); Blood Urea Nitrogen 11 mg/dL (9-23); Calcium 8.0 mg/dL (8.3-10.6); Calcium (Corrected) 9.0 mg/dL (8.5-10.1); Carbon Dioxide 21.8 mMol/L (20.0-31.0); Chloride 104 mMol/L (98-107); Creatinine (Component) 0.6 mg/dL (0.6-1.3); Estimated Creatinine Clearance 88.2 mL/min (>60); Globulin 2.5 gm/dL (2.3-3.5); Glucose 255 mg/dL (74-106); INR 1.0 (0.9-1.3); Osmolality,Calculated 276 (275-295); Partial Thromboplastin Time 29.7 Seconds (22.0-36.0); Potassium 4.0 mMol/L (3.4-5.1); Prothrombin Time 11.1 Seconds (9.0-12.2); Sodium 134 mMol/L (136-145); Total Protein 5.3 gm/dL (5.7-8.2); eGFR > 60 See Note
[2025-01-13 21:23] VITALS: BP 146/76; PULSE 94; RESP 18; TEMP 37.6; O2SAT 99
--- NOTE | 2025-01-13 21:29 | PC.NURSE ---
PT ALCIRA FROM [facility] FOR A HEMOGLOBIN OF O.6 . PT ARRIVED TO ED WITH IVELISSE ALREADY IN PLACE. PT IS A&O X4. WHEN ASKED IF PT KNOWS WHY HE IS AT THE ED, PT RESPONDED WITH I DONT KNOW THEY TOLD ME SOMETHING ABOUT MY LABS WAS LOW RN EXPLAINED TO PT THAT HE MIGHT HAVE A LOW HEMOGLOBIN
[2025-01-13 21:41] VITALS: BP 139/67; PULSE 74; RESP 15; TEMP 37.2; O2SAT 100
[2025-01-13 21:56] VITALS: BP 124/94; PULSE 75; RESP 19; TEMP 37.6; O2SAT 100
[2025-01-13 22:44] LABS: Path Review Blood Smear Sent to Pathologist
[2025-01-14] VITALS (10 sets, daily range): BP systolic 128–170; BP diastolic 55–79; PULSE 69–88; RESP 14–19; TEMP 36.2–37.3; O2SAT 97–100
--- NOTE | 2025-01-14 05:07 | PC.NURSE ---
PER DR. YA ORDER TO CANCEL LASIX
--- NOTE | 2025-01-14 05:39 | PC.NURSE ---
REPORT GIVEN TO OLEG CABRERA AT [facility]
== END 2025-01-14 05:48 | disposition home or self-care (01) ==
PROVIDERS: Registered Nurse General Practice; Emergency Provider Emergency Medicine
DX: D64.9 Anemia, unspecified (principal)
CPT/HCPCS: 36415; 36430; 80053; 82270; 85025; 85610; 85730; 86850; 86900; 86901; 86923; 99284; P9016

== ENCOUNTER → 2025-04-29 | Outpatient (CLI) | payer MEDICARE, MEDICAID, SELFPAY ==
[2025-04-29 19:14] LABS: Basophils # (Auto) 0.1 Thou/mm3 (0.0-0.2); Basophils % (Auto) 1 % (0-2.5); Eosinophils # (Auto) 0.1 Thou/mm3 (0.0-0.5); Eosinophils % (Auto) 2 % (0-10); Hematocrit 23.4 % (41.0-53.0); Immature Granulocytes Auto 0.04 Thou/mm3 (0.00-0.00); Lymphocytes # (Auto) 1.1 Thou/mm3 (1.0-4.8); Lymphocytes % (Auto) 14 % (10-50); Mean Corpuscular HGB Conc 34.2 g/dl (31.0-37.0); Mean Corpuscular Hemoglobin 31.4 pg (25.0-35.0); Mean Corpuscular Volume 92 fL (80-100); Monocytes # (Auto) 0.4 Thou/mm3 (0.0-0.8); Monocytes % (Auto) 6 % (0-12); Neutrophils # (Auto) 5.6 Thou/mm3 (1.8-7.7); Neutrophils % (Auto) 77 % (37-80); Nucleated Red Blood Cell # 0.00 Thou/mm3 (0.00-0.00); Nucleated Red Blood Cell % 0 /100 WBC (0); Platelet Count 363 Thou/mm3 (140-440); RDW Standard Deviation 54.9 fL (35.1-43.9); Red Blood Count 2.55 Miln/mm3 (4.50-5.90); White Blood Count 7.3 Thou/mm3 (3.8-10.6)
[2025-04-29 19:16] LABS: Hemoglobin 8.0 g/dL (13.5-16.0)
[2025-04-29 20:30] LABS: PSA Medicare Annual Scrn 0.98 ng/mL (0-4.00)
[2025-04-29 20:31] LABS: Glucose Estimated Average 146 mg/dL (80-131); Hemoglobin A1C 6.7 % Hgb (4.8-6.0)
[2025-04-29 20:34] LABS: Vitamin B12 859 pg/mL (211-911)
[2025-04-29 20:45] LABS: Alanine Aminotransferase 14 U/L (10-49); Albumin, Serum 3.0 gm/dL (3.4-4.8); Albumin/Globulin Ratio 1.5 (1.2-2.2); Alkaline Phosphatase 93 U/L (46-116); Anion Gap 9 (7-16); Aspartate Amino Transferase 20 U/L (0-34); BUN/Creatinine Ratio 18 Ratio (12-20); Bilirubin,Total 0.6 mg/dL (0.3-1.2); Blood Urea Nitrogen 11 mg/dL (9-23); Calcium 7.6 mg/dL (8.3-10.6); Calcium (Corrected) 8.4 mg/dL (8.5-10.1); Carbon Dioxide 21.5 mMol/L (20.0-31.0); Chloride 90 mMol/L (98-107); Creatinine (Component) 0.6 mg/dL (0.6-1.3); Globulin 2.0 gm/dL (2.3-3.5); Glucose 126 mg/dL (74-106); Osmolality,Calculated 243 (275-295); Potassium 5.0 mMol/L (3.4-5.1); Sodium 120 mMol/L (136-145); Thyroid Stimulating Hormone 1.48 uIU/mL (0.55-4.78); Total Protein 5.0 gm/dL (5.7-8.2); eGFR > 60 See Note
== END | disposition home or self-care (01) ==
LOC: SERX 05-01 08:31 → COPL 05-19 10:54
PROVIDERS: PCP Internal Medicine; Referring Provider Internal Medicine; Visit Provider Internal Medicine
DX: E11.65 Type 2 diabetes mellitus with hyperglycemia (principal); N40.1 Benign prostatic hyperplasia with lower urinary tract symptoms; I25.10 Atherosclerotic heart disease of native coronary artery without angina pectoris; R32 Unspecified urinary incontinence
CPT/HCPCS: 36415; 80053; 82607; 83036; 84153; 84443; 85025; G0103

== ENCOUNTER 2025-04-30 12:38 | Inpatient (IN) | payer MEDICARE, MEDICAID, SELFPAY ==
[2025-04-30] VITALS (7 sets, daily range): BP systolic 113–136; BP diastolic 62–79; PULSE 80–112; RESP 14–100; TEMP 36.1–36.4; O2SAT 99–100
--- NOTE | 2025-04-30 12:55 | PD.EDAMS ---
Altered Mental Status RME/HPI General Chief Complaint: Altered Mental Status Stated Complaint: ALTERED Time Seen by Provider: 04/30/25 12:40 Arrival date/time: 04/30/25 12:38 RME / HPI RME / HPI narrative: 79 year old male with history of CAD s/p PCI, hypertension, diabetes, BPH presents to the ED BIBA from home for evaluation of weakness and altered mental status beginning yesterday at 08:00 AM. Per medics, family on scene reported the patient 2 days ago was at his usual state of health and conversive with family who had come to visit. However, noted at about 08:00 AM yesterday he appeared more altered than normal and this morning was having difficulty getting out of bed, prompting calling 911. Prehospital BG 93 and vital signs stable. In the ED, patient has no complaints. Denies feeling ill, fevers, chills, cough, abdominal pain, or urinary symptoms. Related Data Home Medications ?Medication ?Instructions ?Recorded ?Confirmed tamsulosin 0.4 mg capsule (Flomax) 0.4 mg PO QDAY ##0 07/15/16 09/01/24 finasteride 5 mg tablet 5 mg PO QDAY 07/05/19 09/01/24 docusate sodium 100 mg capsule 1 cap PO BID 03/04/22 08/10/23 dupilumab 300 mg/2 mL subcutaneous 2 ml subcut PRN PRN Pain 03/04/22 08/10/23 syringe (Dupixent) metformin 1,000 mg tablet 1 tab PO BID 03/04/22 09/01/24 multivitamin 1 tab PO QAM 03/04/22 09/01/24 sodium chloride 1,000 mg soluble 1 tab PO BID 03/04/22 09/01/24 tablet Held on 09/03/24. Instructions: Resume on 09/10/24. Hold until repeat CMP in 1 week atorvastatin 80 mg tablet 80 mg PO DAILY 09/01/24 09/01/24 cetirizine 10 mg tablet 10 mg PO DAILY 09/01/24 09/01/24 clopidogrel 75 mg tablet 75 mg PO DAILY 09/01/24 09/01/24 metoprolol succinate 25 mg 37.5 mg PO DAILY 09/01/24 09/01/24 tablet,extended release 24 hr trazodone 50 mg tablet 50 mg PO DAILY 09/01/24 09/01/24 Allergies Allergy/AdvReac Type Severity Reaction Status Date / Time naproxen Allergy Severe DIFFICULTY Verified 12/31/24 08:17 BREATHING Review of Systems Review of Systems Systems Reviewed: All systems reviewed, normal except as documented Past Medical History Past Medical History NEUROLOGIC: Positive Neurological Disorders and Transient Ischemic Attacks (TIA) CARDIAC: Positive Cardiac Disorders, Hypercholesterolemia and Hypertension GASTROINTESTINAL: Positive Gastrointestinal Disorders and Gall Bladder Disease GENITOURINARY: Positive Genitourinary Disorders and Benign Prostatic Hyperplasia ENT: Positive Cataracts ENDOCRINE: Positive Endocrine Disorders PSYCHO/SOCIAL: Positive Anxiety OTHER HISTORY: Positive Chicken Pox Family History FAMILY HISTORY: Positive Family Cardiac Disorders and Family Cancer Surgical History SURGICAL: Positive Coronary Stent and Abdominal Surgery Social History SMOKING STATUS: Never smoker SUBSTANCE USE: does not use ED Exam Narrative Physical exam: Constitutional: Awake, alert, elderly frail patient, cachectic HEENT: Normocephalic, atraumatic, extraocular movements intact. Neck: Supple CV: Regular rate and rhythm, no murmurs/rubs/gallops Lungs: Clear to auscultation BL, no respiratory distress. Abd: Soft, NT, ND, no HSM noted to palpation Extremities: There is erythema and crusting to the right great toe nail the erythema goes down to base of toe, mild swelling to the area. No deformities, no edema noted. Neuro: AAOx3, CN 2-12 GIBL, no acute neuro deficit noted. Skin: Warm, dry, intact Course Course Course Narrative: 1605h: I spoke with hospitalist team A for admission given significant hyponatremia. Hypertonic saline was initiated with repeat BMP ordered for 6pm. They will see pt for admit. Quality Measures none Orders Category Date Time Status COVID-19 Screening Questionnaire NOW Care 04/30/25 16:04 Active Decision to Admit X1 Care 04/30/25 16:04 Active XR chest 1V portable Stat Exams 04/30/25 13:35 Completed BMP [Basic Metabolic Panel] Routine Lab 04/30/25 18:00 Ordered CBC Stat Lab 04/30/25 14:26 Completed CMP [Comprehensive Metabolic Panel] Stat Lab 04/30/25 14:26 Completed Chloride,Urine Random Stat Lab 04/30/25 16:40 Completed Creatinine,Random Urine Stat Lab 04/30/25 16:40 Completed Drug Screen,Urine Stat Lab 04/30/25 16:40 Completed Osmolality, Serum* Stat Lab 04/30/25 16:14 Received Osmolality, Urine* Stat Lab 04/30/25 16:40 Received Procalcitonin Stat Lab 04/30/25 14:26 Completed Sodium,Urine Random Stat Lab 04/30/25 16:40 Completed Urinalysis, C/S if Indicated Stat Lab 04/30/25 16:40 Completed Urine Culture Stat Lab 04/30/25 16:40 Received SODIUM CHLORIDE 3%(Hypertonic) [Hypertonic Saline 3%] Med 04/30/25 15:51 Discontinued 500 ml Pre-Mixed [Pre-mixed Bag] 1 bag IV X1 Vital Signs Vital signs: Vital Signs Temperature 97.4 F 04/30/25 12:49 Pulse Rate 89 04/30/25 12:49 Respiratory Rate 19 04/30/25 12:49 Blood Pressure 136/79 H 04/30/25 12:49 Pulse Oximetry (%) 99 04/30/25 12:49 Oxygen Delivery Method Room Air 04/30/25 12:49 Pulse ox is 99% on room air which is adequate. Altered Mental Status MDM Narrative MDM Narrative:: Gaby Martinez am scribing for and in the presence of Dr. Kulkarni. Patient data External records reviewed:: [facility] previous records and EMS form Clinical information provided by:: patient Social determinants that could affect healthcare access:: none Patient has the following chronic illnesses:: CAD s/p PCI, hypertension, diabetes, BPH How is presenting disease/condition affected by chronic disease/condition?: exacerbated by Evaluation data The following diagnostics were reviewed and interpreted by me:: lab results and radiology exam(s) Lab and/or radiology exams considered but not ordered:: None Interpretation Summary: Ordering Physician: Jenae Kulkarni MD Date of Service: 04/30/25 Procedure(s): XR chest 1V portable Accession Number(s): [id number] cc: Narciso Mancini DO; Dominic Vargas MD; Jenae Kulkarni MD~ EXAMINATION: AP chest single view TECHNIQUE: AP portable upright chest single view Date and time: 2024, 1535 hours, comparison December 31, 2024 INDICATIONS: Chest pain today. FINDINGS: Normal heart size Interstitial disease throughout the lungs Ectatic thoracic aorta Prominent osteopenia IMPRESSION: Interstitial densities throughout the lungs, consider pneumonia, less likely pulmonary edema Dictated By: Dominic Vargas MD Signed By: <Electronically signed by Dominic Vargas MD in OV> 04/30/25 [id number] Medications / Prescriptions Medications or Prescriptions considered but not ordered:: None Medication administrations:: Medication Administration History Acetaminophen (Acetaminophen 325 Mg Tablet) 650 mg PO Q6H PRN PRN Reason: PAIN SCALE 1-3 (mild Stop: 05/30/25 16:44 Heparin Sodium (Porcine) (Heparin Sod Inj 5000 Unit/Ml Vial) 5,000 unit SC Q8HR HUMBERTO Stop: 05/14/25 16:59 Sodium Chloride (Ns) 1,000 mls @ 120 mls/hr IV .[id number] HUMBERTO Stop: 05/30/25 16:54 Ceftriaxone Sodium/Dextrose (Rocephin/D5w 1gm Iv Premix) 1 gm in 50 mls @ 100 mls/hr IV QDAY HUMBERTO Stop: 05/07/25 17:42 Azithromycin 500 mg/ Sodium (Chloride) 250 mls @ 250 mls/hr IV QDAY HUMBERTO Stop: 05/07/25 17:43 Azithromycin 500 mg/ Sodium (Chloride) 250 mls @ 250 mls/hr IV X1 ONE Stop: 04/30/25 18:44 Ondansetron HCl (Ondansetron Inj 2 Mg/Ml Inj 2 Ml) 4 mg IVP Q6H PRN; Protocol PRN Reason: NAUSEA OR VOMITING Stop: 05/30/25 16:44 Discontinued Medications Sodium Chloride 500 ml/ IV (Miscellaneous Supplies) 500 mls @ 30 mls/hr IV X1 ONE Stop: 05/01/25 08:30 Last Admin: 04/30/25 16:54 Dose: Not Given Documented By: DO Non-Admin Reason: Cancelled by Provider Sodium Chloride (Ns) 1,000 mls @ 70 mls/hr IV .[id number] HUMBERTO Stop: 05/30/25 16:44 See above Consultations Consultation(s) initiated? (list below): Yes Consultation #1 (Physician, Specialty, Details): See course Diagnosis Most likely diagnosis given after review of the tests above:: Hyponatremia Altered mental state Admission Indicated Admission indicated?: indicated Admission Request Was there a request for admission?: Yes Admission Attestation Admission request attestation: Discussed case with [] from Hospitalist service regarding admission. Discussed patients ED course, exam findings, labs, and radiology results. The Hospitalist [agrees,declines] to accept the patient for admission. Disposition Plan Disposition Plan: Admit Critical Care Time Critical Care Time Total Critical Care Time (min.): 35 Attestation: The high probability of a clinically significant, sudden or life threatening deterioration required my full and direct attention, intervention and personal management. The aggregate critical care time was [35] minutes. This time is in addition to time spent performing reported procedures but includes the following: [x] Data Review and interpretation [x] Patient assessment and monitoring of vital signs [x] Documentation [x] Medication orders and management Discharge Plan Plan Patient Disposition: Admit Acute Care w/in Hospital Problem List Clinical Impression: Hyponatremia, Altered mental state
--- NOTE | 2025-04-30 13:35 | XR_ITS ---
EXAMINATION: AP chest single view TECHNIQUE: AP portable upright chest single view Date and time: 2024, 1535 hours, comparison December 31, 2024 INDICATIONS: Chest pain today. FINDINGS: Normal heart size Interstitial disease throughout the lungs Ectatic thoracic aorta Prominent osteopenia IMPRESSION: Interstitial densities throughout the lungs, consider pneumonia, less likely pulmonary edema
[2025-04-30 14:56] LABS: Basophils # (Auto) 0.1 Thou/mm3 (0.0-0.2); Basophils % (Auto) 1 % (0-2.5); Eosinophils # (Auto) 0.2 Thou/mm3 (0.0-0.5); Eosinophils % (Auto) 2 % (0-10); Hematocrit 29.0 % (41.0-53.0); Hemoglobin 10.0 g/dL (13.5-16.0); Immature Granulocytes Auto 0.06 Thou/mm3 (0.00-0.00); Lymphocytes # (Auto) 1.2 Thou/mm3 (1.0-4.8); Lymphocytes % (Auto) 12 % (10-50); Mean Corpuscular HGB Conc 34.5 g/dl (31.0-37.0); Mean Corpuscular Hemoglobin 30.7 pg (25.0-35.0); Mean Corpuscular Volume 89 fL (80-100); Monocytes # (Auto) 0.7 Thou/mm3 (0.0-0.8); Monocytes % (Auto) 7 % (0-12); Neutrophils # (Auto) 7.7 Thou/mm3 (1.8-7.7); Neutrophils % (Auto) 78 % (37-80); Nucleated Red Blood Cell # 0.00 Thou/mm3 (0.00-0.00); Nucleated Red Blood Cell % 0 /100 WBC (0); Platelet Count 354 Thou/mm3 (140-440); RDW Standard Deviation 51.8 fL (35.1-43.9); Red Blood Count 3.26 Miln/mm3 (4.50-5.90); White Blood Count 9.9 Thou/mm3 (3.8-10.6)
[2025-04-30 15:43] LABS: Anion Gap 8 (7-16); Blood Urea Nitrogen 6 mg/dL (9-23); Carbon Dioxide 19.9 mMol/L (20.0-31.0); Chloride 90 mMol/L (98-107); Creatinine (Component) 0.5 mg/dL (0.6-1.3); Potassium 4.7 mMol/L (3.4-5.1)
[2025-04-30 15:44] LABS: Alanine Aminotransferase 14 U/L (10-49); Albumin, Serum 3.3 gm/dL (3.4-4.8); Albumin/Globulin Ratio 1.4 (1.2-2.2); Alkaline Phosphatase 105 U/L (46-116); Aspartate Amino Transferase 26 U/L (0-34); BUN/Creatinine Ratio 12 Ratio (12-20); Bilirubin,Total 0.7 mg/dL (0.3-1.2); Calcium 7.9 mg/dL (8.3-10.6); Calcium (Corrected) 8.5 mg/dL (8.5-10.1); Globulin 2.4 gm/dL (2.3-3.5); Glucose 94 mg/dL (74-106); Osmolality,Calculated 236 (275-295); Procalcitonin 0.24 ng/ml (0.0-0.49); Total Protein 5.7 gm/dL (5.7-8.2); eGFR > 60 See Note
[2025-04-30 15:48] LABS: Sodium 118 mMol/L (136-145)
[2025-04-30 16:56] LABS: Collection Type, Urine Clean Catch
[2025-04-30 17:10] LABS: Amphetamine/Methamp Scrn,U Negative (Negative); Barbiturate Screen,Urine Negative (Negative); Benzodiazepines Screen,Urine Negative (Negative); Benzoylecgonine Screen, Ur Negative (Negative); Chloride,Urine Random 74.0 mMol/L (55.0-125.0); Creatinine,Random Urine 41 mg/dL (30-125); Fentanyl Screen,Urine Negative (Negative); Opiate Screen,Urine Negative (Negative); Sodium,Urine Random 48.1 mMol/L (20.0-110.0); THC Screen,Urine Negative (Negative)
[2025-04-30 17:12] LABS: Bacteria,Urine Rare; Bilirubin,Urine Negative (Negative); Blood,Urine Negative (Negative); Clarity,Urine Clear (Clear/Hazy); Color,Urine Yellow (Lt Yel-Yel); Glucose, Urine Negative (Negative); Ketones,Urine Negative (Negative); Leukocyte Esterase,Urine Positive (Negative); Nitrite,Urine Negative (Negative); PH,Urine 5.5 (5.0-7.0); Protein,Urine Negative (Neg - Trace); RBC,Urine 7 /hpf (0-3); Specific Gravity,Urine 1.013 (1.001-1.035); Squamous Epithelial Cell,Urine 2 /hpf (0-5); Urobilinogen,Urine Negative mg/dL (0.0-1.0); WBC,Urine 11 /hpf (0-5)
[2025-04-30 17:16] LABS: Culture Indicated,Urine Yes
--- NOTE | 2025-04-30 17:30 | ESHP_ITS ---
<Statement entered by Rosemary Moody MD - 05/01/25 14:57> Patient was seen and examined by me personally. I have directly supervised and reviewed documentation by the team resident and agree with its findings with any exceptions or additional findings as below. Plan of care was discussed with the attending, Dr. Feliciano. Patient is an 79-year-old male with past medical history of hyponatremia, hypertension, type 2 diabetes mellitus, coronary artery disease status post stents in July 2023, peripheral arterial disease, and BPH who was brought from home due to abnormal outpatient labs showing hyponatremia. Patient is on salt tablets however he is unable to tell whether he has been taking them consistently. He lives with his who assists with medication management. At the time of admission no one is present at bedside. Patient is alert and oriented to self, date of , and place, and appropriately responsive to questions even though a poor historian. He currently does not have any complaints. Sodium of 118 is hypoosmolar, will start patient on normal saline and trend q6h with a goal of 6-8 in the next 24 hours. Patient did not get any hypertonic saline as his mental status was near to baseline and there is no neurologic abnormalities at this time. Patient will be monitored closely. Rosemary Moody, PGY-3 Documentation for date of: 04/30/25 HPI History of Present Illness History of present illness: Patient is an 79-year-old male with a PMH of recurrent hyponatremia, hypertension, type 2 diabetes mellitus, coronary artery disease status post stents in July 2023, peripheral arterial disease, and BPH who presented on 04/30/2025 after he was told to do so when his outpatient labs showed severe hypoosmolar hyponatremia. At the time of interview, patient was alert and oriented x 2, responsive to questioning but spoke slowly, and did not seem very aware of his own medical details (poor historian). He denied any symptoms or complaints and wanted to know how long he was expected to remain in the hospital for. Patient reports that this is not the first time that he has had hyponatremia and that he was previously taking salt tablets but that they had recently been discontinued by Dr. Mcdaniel. He denied any N/V, headache, lightheadedness, or feelings of confusion or disorientation. (much of the information below was synthesized from chart review as patient's responses were circuitous and difficult to follow) PMH: As above PSH: Cholecystectomy long time ago, 2 coronary stents placed on July 2023 Medications: Pending medication reconciliation Allergies: Naproxen (reaction: difficulty breathing) FH: Does not recall SH: Per prior documentation, about 50 pack year smoking history, smoking for 50 to 60 years, current smoker, denies any alcohol or illicit drug use In the ED, vitals showed: BP 136/79 HR 89 RR 19 Temp 97.4 SpO2 99% on room air CBC showed hemoglobin 8.0->10.0 but otherwise WNL. CMP showed sodium 120->118, chloride 90, calculated osmolality 236, procalcitonin 0.24. UA showed leukocyte esterase (+), 7 uRBC, 11 uWBC, rare bacteria. Urine random electrolytes showed creatinine 41, sodium 48.2, potassium 36, chloride 74.0. UDS grossly negative. Imagin/19 CXR showed interstitial densities throughout the lungs possibly suggestive of pneumonia or, less likely, pulmonary edema. In the ED, patient was started on IV NS fluid at 120 cc/hr and Rocephin 1 g IV qD. Patient was admitted for the work-up and management of severe hypo-osmolar hyponatremia without symptoms. Nephrology (Dr. Marquez) was consulted regarding patient's hyponatremia and General Surgery (Dr. Quispe) was consulted regarding patient's right toe which was found to be black and necrotic on exam. Review of Systems Review of Systems Systems Reviewed: All systems reviewed, normal except as documented Exam Vital Signs Temp Pulse Resp BP Pulse Ox O2 Del Method 97.4 F 98 17 113/62 99 Room Air 04/30/25 16:12 04/30/25 16:12 04/30/25 16:12 04/30/25 16:12 04/30/25 16:12 04/30/25 16:12 Narrative Exam General: A/O x2 thin, elderly male in no acute distress. Skin: Large ecchymoses of right arm. Warm, dry, intact, no obvious rash. Head: Normocephalic, atraumatic. Eyes: PERRL, EOMI. Anicteric, vision grossly intact. Ears: Presbycusis. No ear pain, no ear discharge. Nose: No nasal discharge. Mouth/Throat: Edentulous. Oral mucosa dry-appearing. No obvious lesions in oropharynx. Neck: Neck supple, non-tender, no cervical lymphadenopathy. Cardiovascular: Tachycardic rate and normal rhythm, no murmur, no JVD or carotid bruits. +S1/S2. Respiratory: Dry coughing intermittently during exam. Bilateral lungs difficult to ausculate clearly but seemingly free of crackles, rales, rhonchi, or wheezing. Respirations unlabored and no accessory muscle use. Gastrointestinal: Soft, nontender, non-distended, no palpable masses. No guarding or rebound tenderness. Peristalsis present. Extremities: Right big toe appears blackened and necrotic without drainage. No edema, no cyanosis, no clubbing. 2+ radial pulse bilaterally, 2+ posterior tibial pulse bilaterally. Neuro: No focal deficits observed. Conversant, moving all extremities. No overt cerebellar signs/incoordination. Psychiatric: Slow speech. Cooperative, appropriate affect. Results: Labs 05/01/25 05:30 05/01/25 12:15 Labs: Short CBC 04/30/25 Range/Units 14:26 WBC 9.9 (3.8-10.6) Thou/mm3 Hgb 10.0 L D (13.5-16.0) g/dL Hct 29.0 L (41.0-53.0) % Plt Count 354 (140-440) Thou/mm3 BMP 04/30/25 14:26 Sodium 118 L* Potassium 4.7 Chloride 90 L Carbon Dioxide 19.9 L BUN 6 L Creatinine 0.5 L Glucose 94 Calcium 7.9 L Liver Function 04/30/25 Range/Units 14:26 Total Bilirubin 0.7 (0.3-1.2) mg/dL AST 26 (0-34) U/L ALT 14 (10-49) U/L Alkaline Phosphatase 105 (46-116) U/L Albumin 3.3 L (3.4-4.8) gm/dL Urine 04/30/25 Range/Units 16:40 Urine Color Yellow (Lt Yel-Yel) Urine Clarity Clear (Clear/Hazy) Urine pH 5.5 (5.0-7.0) Ur Specific [place] 1.013 (1.001-1.035) Urine Protein Negative (Neg - Trace) Urine Glucose (UA) Negative (Negative) Quality Measures Quality Measures none Advance care planning discussed with:: patient Medications Home Medications and Allergies Home Medications ?Medication ?Instructions ?Recorded ?Confirmed ?Type tamsulosin 0.4 mg capsule (Flomax) 0.4 mg PO QDAY ##0 07/15/16 04/30/25 History finasteride 5 mg tablet 5 mg PO QDAY 07/05/19 History docusate sodium 100 mg capsule 1 cap PO BID 03/04/22 1 06/30/24 History dupilumab 300 mg/2 mL subcutaneous 2 ml subcut PRN PRN Pain 03/04/22 04/30/25 History syringe (Dupixent) metformin 1,000 mg tablet 1 tab PO BID 03/04/22 History multivitamin 1 tab PO QAM 03/04/22 History sodium chloride 1,000 mg soluble 1 tab PO BID 03/04/22 04/30/25 History tablet Held on 09/03/24. Instructions: Resume on 09/10/24. Hold until repeat CMP in 1 week atorvastatin 80 mg tablet 80 mg PO DAILY 09/01/2404/12 History clopidogrel 75 mg tablet 75 mg PO DAILY 09/01/2404/12 History metoprolol succinate 25 mg 37.5 mg PO DAILY 09/01/24 1 06/30/24 History tablet,extended release 24 hr trazodone 50 mg tablet 50 mg PO DAILY 09/01/2408/11 History Allergies Allergy/AdvReac Type Severity Reaction Status Date / Time naproxen Allergy Severe DIFFICULTY Verified 12/31/24 08:17 BREATHING Visit Medications Acetaminophen (Acetaminophen 325 Mg Tablet) 650 mg PO Q6H PRN PRN Reason: PAIN SCALE 1-3 (mild Stop: 05/30/25 16:44 Heparin Sodium (Porcine) (Heparin Sod Inj 5000 Unit/Ml Vial) 5,000 unit SC Q8HR HUMBERTO Stop: 05/14/25 16:59 Sodium Chloride (Ns) 1,000 mls @ 120 mls/hr IV .Q8H20M HUMBERTO Stop: 05/30/25 16:54 Ondansetron HCl (Ondansetron Inj 2 Mg/Ml Inj 2 Ml) 4 mg IVP Q6H PRN; Protocol PRN Reason: NAUSEA OR VOMITING Stop: 05/30/25 16:44 Discontinued Medications Sodium Chloride 500 ml/ IV (Miscellaneous Supplies) 500 mls @ 30 mls/hr IV X1 ONE Stop: 05/01/25 08:30 Last Admin: 04/30/25 16:54 Dose: Not Given Sodium Chloride (Ns) 1,000 mls @ 70 mls/hr IV .[id number] HUMBERTO Stop: 05/30/25 16:44 Assessment & Plan Plan Patient is an 79-year-old male with a PMH of recurrent hyponatremia, hypertension, type 2 diabetes mellitus, coronary artery disease status post stents in July 2023, peripheral arterial disease, and BPH who presented on 04/30/2025 after he was told to do so when his outpatient labs showed severe hypoosmolar hyponatremia. Patient was admitted for the work-up and management of severe hypo-osmolar hyponatremia without symptoms. #Severe hypo-osmolar hyponatremia, asymptomatic #?SIADH #Hx of hyponatremia, on salt tablets previously 04/30 admission sodium 118 at around 14:30 (calculated osmolality 236, euvolemic-appearing) Etiology currently unclear but possibly 2/2 SIADH from varied etiologies including bacterial/viral pneumonia, medication side effect (diuretics, SSRIs, trazodone), or small-cell lung cancer Other less likely causes may be hypothyroidism or adrenal insufficiency Patient apparently has previous history of taking salt tablets which were discontinued by Dr. Mcdaniel and has had prior episodes of hyponatremia before Dx: -04/30 urine random electrolytes showed creatinine 41, sodium 48.2, potassium 36, chloride 74.0 Rx: -IV NS fluid at 120 cc/hr with aim to increase sodium by 8-10 mEq in the first 24 hours (goal sodium 126-128 by 05/01 around 14:30) -Sodium checks q6HR -Nephrology (Dr. Marquez) consulted, appreciate recommendations #?Community-acquired pneumonia #Significant smoking Hx, [id number] 04/30 CXR showed interstitial densities throughout the lungs that were possibly suggestive of pneumonia During initial exam, patient was noted to have an intermittent dry cough but he did not present with leukocytosis or fever Per prior documentation, patient has smoked an average of 1 pack/day for 50-60 years Dx: -Coccidioides IgM antibody assay ordered, showed ___ -COVID lab work-up ordered, showed ___ Rx: -Rocephin 1 g IV qD [04/30--] -Azithromycin 500 mg IV qD [04/30--] #Necrotic hallux of right foot #Osteomyelitis of right distal hallux #Hx of peripheral arterial disease #Hx of type 2 diabetes mellitus On physical exam, the big toe of patient's right toe is noted to be blackened and necrotic-appearing (no drainage) and patient is unsure when or how it became as such Likely 2/2 significant peripheral arterial disease as patient's hemoglobin A1c this admission was not that high Dx: -04/30 toe XR ordered, showed osteomyelitis -Ordered hemoglobin A1c, 6.7 Rx: -General Surgery (Dr. Quispe), consulted, appreciate recommendations -Wound care referral Hospital Management: Disposition: Tele Diet: Cardiac GI Prophylaxis: Not Indicated Bowel Prophylaxis: None DVT Prophylaxis: Heparin CODE STATUS: Full Code I have examined the patient and conferred with my attending, Dr. Feliciano, and my senior resident, Dr. Moody, regarding them. Mason Cristina DO PGY-1 Internal Medicine Attending Provider Attestation/Addendum I or my resident physicians have discussed care with the ED physician and I have made the decision to admit. I have discussed and was present for the essential components of the history, physical examination, diagnosis, and treatment plan with the resident. I agree with the patient's care as documented by the resident and amended herein by me. Harinder Feliciano DO. Although this document has been carefully reviewed, there may still be some phonetic and other typographical errors. These errors are purely grammatical due to imperfections in the software program and should not be construed in any way to compromise the substance of the patient's medical care during this visit.
--- NOTE | 2025-04-30 17:55 | PC.NURSE ---
Md Cristina confirms no Blood cultures at this time, continue with treatment
[2025-04-30 17:58] LABS: Chloride,Urine Random 74.0 mMol/L (55.0-125.0); Potassium,Urine Random 36 mMol/L (12-62); Sodium,Urine Random 48.2 mMol/L (20.0-110.0)
[2025-04-30] MEDS: SODIUM CHLORIDE 0.9% 1000 ML 1,000 ML 120 ML IV (18:01)
[2025-04-30] MEDS: cefTRIAXone/D5w 1gm IV premix 1 GM/50 ML BAG IV (18:01)
[2025-04-30] MEDS: HEPARIN SOD INJ 5000 UNIT/ML VIAL SC ×2 (18:01→22:06)
--- NOTE | 2025-04-30 18:14 | XR_ITS ---
Examination: Toes, right foot first digit Technique: Toes AP oblique lateral 3 views Date and time of exam: April 30, 2025, 1825 hours INDICATIONS: Redness swelling and pain necrosis involving the first digit today FINDINGS: Severe osteopenia Soft tissue swelling about the distal phalanx first digit Early cortical erosion involving the lateral margins of the distal phalanx first digit Soft tissue vascular calcification IMPRESSION: Osteomyelitis distal phalanx first digit, as clinically warranted, MRI foot without contrast follow-up would best assess full extent of osteomyelitis and exclude soft tissue abscess
[2025-04-30 18:49] LABS: Anion Gap 8 (7-16); BUN/Creatinine Ratio 20 Ratio (12-20); Blood Urea Nitrogen 10 mg/dL (9-23); Calcium 8.2 mg/dL (8.3-10.6); Carbon Dioxide 21.7 mMol/L (20.0-31.0); Chloride 90 mMol/L (98-107); Creatinine (Component) 0.5 mg/dL (0.6-1.3); Glucose 117 mg/dL (74-106); Osmolality,Calculated 242 (275-295); Potassium 4.6 mMol/L (3.4-5.1); Sodium 120 mMol/L (136-145); eGFR > 60 See Note
[2025-04-30] MEDS: AZITHROMYCIN INJ 500 MG in SODIUM CHLORIDE 0.9% 250 ML 250 ML 250 MG IV (22:05)
[2025-05-01] VITALS (8 sets, daily range): BP systolic 113–152; BP diastolic 63–90; PULSE 89–106; RESP 13–97; TEMP 35.9–36.4; O2SAT 93–100
[2025-05-01 00:45] LABS: Sodium 122 mMol/L (136-145)
[2025-05-01] MEDS: SODIUM CHLORIDE 0.9% 1000 ML 1,000 ML 120 ML IV (03:43)
[2025-05-01] MEDS: HEPARIN SOD INJ 5000 UNIT/ML VIAL SC ×3 (05:53→21:56)
[2025-05-01 05:58] LABS: Basophils # (Auto) 0.0 Thou/mm3 (0.0-0.2); Basophils % (Auto) 0 % (0-2.5); Eosinophils # (Auto) 0.1 Thou/mm3 (0.0-0.5); Eosinophils % (Auto) 1 % (0-10); Hematocrit 23.8 % (41.0-53.0); Immature Granulocytes Auto 0.05 Thou/mm3 (0.00-0.00); Lymphocytes # (Auto) 0.9 Thou/mm3 (1.0-4.8); Lymphocytes % (Auto) 10 % (10-50); Mean Corpuscular HGB Conc 35.7 g/dl (31.0-37.0); Mean Corpuscular Hemoglobin 31.7 pg (25.0-35.0); Mean Corpuscular Volume 89 fL (80-100); Monocytes # (Auto) 0.5 Thou/mm3 (0.0-0.8); Monocytes % (Auto) 6 % (0-12); Neutrophils # (Auto) 7.2 Thou/mm3 (1.8-7.7); Neutrophils % (Auto) 83 % (37-80); Nucleated Red Blood Cell # 0.00 Thou/mm3 (0.00-0.00); Nucleated Red Blood Cell % 0 /100 WBC (0); Platelet Count 354 Thou/mm3 (140-440); RDW Standard Deviation 51.5 fL (35.1-43.9); Red Blood Count 2.68 Miln/mm3 (4.50-5.90); White Blood Count 8.7 Thou/mm3 (3.8-10.6)
[2025-05-01 06:09] LABS: Alanine Aminotransferase 12 U/L (10-49); Albumin, Serum 3.0 gm/dL (3.4-4.8); Albumin/Globulin Ratio 1.3 (1.2-2.2); Alkaline Phosphatase 102 U/L (46-116); Anion Gap 9 (7-16); Aspartate Amino Transferase 23 U/L (0-34); BUN/Creatinine Ratio 12 Ratio (12-20); Bilirubin,Total 0.5 mg/dL (0.3-1.2); Blood Urea Nitrogen 6 mg/dL (9-23); Calcium 7.5 mg/dL (8.3-10.6); Calcium (Corrected) 8.3 mg/dL (8.5-10.1); Carbon Dioxide 21.4 mMol/L (20.0-31.0); Cardiac Risk Estimate 1.8 RATIO (4.0-6.7); Chloride 94 mMol/L (98-107); Cholesterol 64 mg/dL (132-200); Creatinine (Component) 0.5 mg/dL (0.6-1.3); Globulin 2.3 gm/dL (2.3-3.5); Glucose 82 mg/dL (74-106); HDL Cholesterol 35 mg/dL (40-60); LDL Cholesterol,Calculated 17 mg/dL (0-130); Magnesium 1.1 mg/dL (1.6-2.6); Osmolality,Calculated 246 (275-295); Phosphorous 3.5 mg/dL (2.4-5.1); Potassium 4.1 mMol/L (3.4-5.1); Sodium 124 mMol/L (136-145); Total Protein 5.3 gm/dL (5.7-8.2); Triglycerides 58 mg/dL (30-150); eGFR > 60 See Note
[2025-05-01 06:34] LABS: Hemoglobin 8.5 g/dL (13.5-16.0)
--- NOTE | 2025-05-01 08:18 | PD.NEPHCONS ---
History of Present Illness Data of Consult Consult date: 05/01/25 Requesting Physician: Tarun Feliciano DO Primary Care Provider: Narciso Mancini DO Consult Narrative Reason for consult: Hyponatremia History of present illness: Chart review done. Patient seems to be a poor historian. Mr. Scott is a 79-year-old gentleman with a history of diabetes, hypertension, coronary artery disease status post stents, peripheral vascular disease, BPH, recurrent episodes of hyponatremia (supposedly on salt tablets-although recently discontinued per chart and salt tablets were not on her home medications) presented to the emergency department sent by primary care doctor as his sodium was very low. Patient was alert and awake. He was noted to be hypovolemic hyponatremia. 1 L normal saline was given and patient continued on a normal saline IV. Renal consultation requested for hyponatremia. Patient denies any nausea, vomiting. Denies any disorientation or no episodes of seizures. Home medications included Lipitor, Plavix, docusate, finasteride, metformin, metoprolol, multivitamin, Flomax, trazodone In the emergency department a blood pressure 136/79, heart rate 89 afebrile. CBC showed hemoglobin 10. Sodium 118, osmolality 236, Pro-Yousif 0.24, renal function normal. LFTs normal. Urinalysis shows trace bacteria. Urine sodium 48. Urine tox screen negative. Chest x-ray showed no CHF. Questionable pneumonia. Was given Rocephin in the ED and normal saline. Patient currently seen in telemetry. This morning his sodium slightly better at 122. Patient also noted to have right toe necrosis-Dr. Quispe was consulted. cc:: cc: Tarun Feliciano DO Review of Systems Review of Systems Narrative Review of Systems: Patient denies any chest pain, shortness of breath. Denies any nausea, vomiting. Past Medical History Past Medical History NEUROLOGIC: Positive Neurological Disorders and Transient Ischemic Attacks (TIA); Negative Seizures CARDIAC: Positive Cardiac Disorders, Hypercholesterolemia and Hypertension; Negative Congestive Heart Failure RESPIRATORY: Negative Chronic Obstructive Pulmonary Disease (COPD) or Asthma GASTROINTESTINAL: Positive Gastrointestinal Disorders and Gall Bladder Disease GENITOURINARY: Positive Genitourinary Disorders and Benign Prostatic Hyperplasia; Negative Renal Disease MUSCULOSKELETAL: Negative Musculoskeletal Disorders or Arthritis ENT: Positive Cataracts ENDOCRINE: Positive Endocrine Disorders; Negative Diabetes Mellitus Type 1 or Diabetes Mellitus Type 2 HEMATOLOGIC: Negative Blood Disorders or Sickle Cell Disease PSYCHO/SOCIAL: Positive Anxiety OTHER HISTORY: Positive Chicken Pox; Negative Hospitalization, Autoimmune Disease, Down Syndrome, Developmental Delay, Shingles, Falls, Blood Transfusions, Blood Transfusion Reaction, Anesthesia Reactions, Measles, Mumps, Clostridium Difficile or Cancer Family History FAMILY HISTORY: Positive Family Cardiac Disorders and Family Cancer; Negative Family Psychiatric Problems, Family Respiratory Disorders, Family Gastrointestinal Problems, Family Surgery or Family Anesthesia Reaction Surgical History SURGICAL: Positive Coronary Stent and Abdominal Surgery Social History SMOKING STATUS: Former smoker SUBSTANCE USE: does not use Meds Home Medications and Allergies Home Medications ?Medication ?Instructions ?Recorded ?Confirmed ?Type tamsulosin 0.4 mg capsule (Flomax) 0.4 mg PO QDAY ##0 07/15/16 04/30/25 History finasteride 5 mg tablet 5 mg PO QDAY 07/05/19 04/30/25 History docusate sodium 100 mg capsule 1 cap PO BID 03/04/22 04/30/25 History dupilumab 300 mg/2 mL subcutaneous 2 ml subcut PRN PRN Pain 03/04/22 04/30/25 History syringe (Dupixent) metformin 1,000 mg tablet 1 tab PO BID 03/04/22 04/30/25 History multivitamin 1 tab PO QAM 03/04/22 04/30/25 History sodium chloride 1,000 mg soluble 1 tab PO BID 03/04/22 04/30/25 History tablet Held on 09/03/24. Instructions: Resume on 09/10/24. Hold until repeat CMP in 1 week atorvastatin 80 mg tablet 80 mg PO DAILY 09/01/24 04/30/25 History clopidogrel 75 mg tablet 75 mg PO DAILY 09/01/24 04/30/25 History metoprolol succinate 25 mg 37.5 mg PO DAILY 09/01/24 04/30/25 History tablet,extended release 24 hr trazodone 50 mg tablet 50 mg PO DAILY 09/01/24 09/01/24 History Allergies Allergy/AdvReac Type Severity Reaction Status Date / Time naproxen Allergy Severe DIFFICULTY Verified 12/31/24 08:17 BREATHING Exam Vital Signs Temp Pulse Resp BP Pulse Ox O2 Del Method 36.4 C 92 18 122/68 99 Room Air 05/01/25 04:00 05/01/25 06:49 05/01/25 06:49 05/01/25 04:00 05/01/25 04:00 05/01/25 04:00 Narrative Exam GENERAL APPEARANCE: Patient clinically looks rather hypovolemic with dry mucosa NECK: Neck supple, no JVD or bruit CARDIOVASCULAR: Heart regular, no murmurs LUNGS/CHEST: Chest clear to auscultation. No rales, rhonchi, wheezing ABDOMEN: Soft, nontender, nondistended. No masses. Normal bowel sounds. EXTREMITIES: No edema, clubbing or cyanosis. SKIN: Question dry gangrene in the right toe MUSCULOSKELETAL: In bed NEUROLOGICAL : Alert and awake Results Labs 05/01/25 05:30 05/01/25 12:15 Labs: Short CBC 04/30/25 05/01/25 Range/Units 14:26 05:30 WBC 9.9 8.7 (3.8-10.6) Thou/mm3 Hgb 10.0 L D 8.5 L (13.5-16.0) g/dL Hct 29.0 L 23.8 L (41.0-53.0) % Plt Count 354 354 (140-440) Thou/mm3 BMP 04/30/25 04/30/25 05/01/25 14:26 18:14 00:22 Sodium 118 L* 120 L 122 L Potassium 4.7 4.6 Chloride 90 L 90 L Carbon Dioxide 19.9 L 21.7 BUN 6 L 10 Creatinine 0.5 L 0.5 L Glucose 94 117 H Calcium 7.9 L 8.2 L 05/01/25 05:30 Sodium 124 L Potassium 4.1 D Chloride 94 L Carbon Dioxide 21.4 BUN 6 L Creatinine 0.5 L Glucose 82 Calcium 7.5 L Liver Function 04/30/25 05/01/25 Range/Units 14:26 05:30 Total Bilirubin 0.7 0.5 (0.3-1.2) mg/dL AST 26 23 (0-34) U/L ALT 14 12 (10-49) U/L Alkaline Phosphatase 105 102 (46-116) U/L Albumin 3.3 L 3.0 L (3.4-4.8) gm/dL Urine 04/30/25 Range/Units 16:40 Urine Color Yellow (Lt Yel-Yel) Urine Clarity Clear (Clear/Hazy) Urine pH 5.5 (5.0-7.0) Ur Specific [place] 1.013 (1.001-1.035) Urine Protein Negative (Neg - Trace) Urine Glucose (UA) Negative (Negative) Assessment & Plan Assessment and plan (1) Hyponatremia: Status: Acute Assessment and plan: Hyponatremia secondary to hypovolemia superimposed on underlying SIADH. Apparently patient was having recurrent episodes of hyponatremia and was on salt tablet which was discontinued. Will resume salt tablet. Currently on normal saline. Goal will be no more than 6-8 mEq in 24 hours. If there is overshoot will switch fluids to half NS. CAT scan done in December did not show any evidence of malignancy. Continue with every 6 hours serum sodium checks. No need for hypertonic saline. Alert and awake. No neurological deficits noted. (2) Hypertension: Status: Acute Assessment and plan: Blood pressure stable. (3) Gangrene of toe of right foot: Status: Acute Assessment and plan: Surgical consultation was requested (4) PVD (peripheral vascular disease): Status: Acute (5) CAD (coronary artery disease): Status: Acute Assessment and plan: Patient seen Dr. Mcdaniel. Asymptomatic. Additional Assessment & Plan Additional Plan: Thank you Harinder for allowing me to participate in the care of Mr. Scott
[2025-05-01] MEDS: cefTRIAXone 2 GM in SODIUM CHLORIDE 0.9% (Popper) 50 ML IV (08:43)
[2025-05-01] MEDS: SODIUM CHLORIDE 1 GM TABLET PO (08:44)
[2025-05-01] MEDS: SODIUM CHLORIDE 0.9% 1000 ML 1,000 ML 100 ML IV (08:44)
--- NOTE | 2025-05-01 12:50 | PD.SURCONS ---
HPI Consult details History of present illness: 79M with HTN, DMII, CAD s/p stenting 2023, hyponatremia and PAD who was admitted 04/30 due to outpatient labs showing hyponatremia. Pt was also noted to have necrotic tissue of his right first toe and underwent xray showing osteomyelitis for which general surgery was consulted. 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 He reports mild pain to the toe but otherwise has no complaints PMH: HTN, DMII, CAD, PAD, hyponatremia PSHx: PCI 07/2023, cholecystectomy Meds: includes plavix Allergies: Naproxen Social hx: current smoker for >50 years Review of Systems Review of Systems ROS Unobtainable: All systems reviewed & no additional complaints except as documented Meds Home Medications and Allergies Home Medications ?Medication ?Instructions ?Recorded ?Confirmed ?Type tamsulosin 0.4 mg capsule (Flomax) 0.4 mg PO QDAY ##0 07/15/16 04/30/25 History finasteride 5 mg tablet 5 mg PO QDAY 07/05/19 04/30/25 History docusate sodium 100 mg capsule 1 cap PO BID 03/04/22 04/30/25 History dupilumab 300 mg/2 mL subcutaneous 2 ml subcut PRN PRN Pain 03/04/22 04/30/25 History syringe (Dupixent) metformin 1,000 mg tablet 1 tab PO BID 03/04/22 04/30/25 History multivitamin 1 tab PO QAM 03/04/22 04/30/25 History sodium chloride 1,000 mg soluble 1 tab PO BID 03/04/22 04/30/25 History tablet Held on 09/03/24. Instructions: Resume on 09/10/24. Hold until repeat CMP in 1 week atorvastatin 80 mg tablet 80 mg PO DAILY 09/01/24 04/30/25 History clopidogrel 75 mg tablet 75 mg PO DAILY 09/01/24 04/30/25 History metoprolol succinate 25 mg 37.5 mg PO DAILY 09/01/24 04/30/25 History tablet,extended release 24 hr trazodone 50 mg tablet 50 mg PO DAILY 09/01/24 09/01/24 History Allergies Allergy/AdvReac Type Severity Reaction Status Date / Time naproxen Allergy Severe DIFFICULTY Verified 12/31/24 08:17 BREATHING Exam Vital Signs Temp Pulse Resp BP Pulse Ox O2 Del Method 96.6 F L 89 16 152/90 H 93 L Room Air 05/01/25 12:00 05/01/25 12:00 05/01/25 12:00 05/01/25 12:00 05/01/25 12:00 05/01/25 12:00 Constitutional Constitutional: no acute distress Routine Respiratory Exam Respiratory: Present no resp distress Routine Extremities Exam Comments: right first toe with dry eschar at the dorsal surface, mild erythema on the plantar surface, no signs of abscess. foot warm with DP+ Results Results: Laboratory Laboratory results: results reviewed Results: Imaging Imaging narrative: Foot xray reviewed Assessment & Plan Plan 79M with HTN, DMII, CAD s/p stenting 2023, hyponatremia and PAD who was admitted 04/30 due to outpatient labs showing hyponatremia, additionally noted to have dry eschar of the right first toe and osteomyelitis on xray. Pt states he has had this problem for 3 years and he does not have any signs of acute infection. Given his significant hyponatremia and the chronic nature of this problem I do not recommend any urgent intervention. Outpatient follow up with podiatry Please contact me with concerns or questions
[2025-05-01 12:53] LABS: Sodium 128 mMol/L (136-145)
[2025-05-01 13:37] LABS: Cocci Serology, IgM Negative (Negative)
[2025-05-01] MEDS: ZINC GLUCONATE 50 MG TABLET PO (15:37)
--- NOTE | 2025-05-01 15:54 | PC.SS ---
DISASSEM[employer]ER [employer]ODUCT conducted bedside contact with the patient conduct initial assessment and to discuss discharge planning.? Patient confirmed demographic information.? Patient resides at home with spouse Olamide Scott .? Patient is retired. ?Patient utilizes a walker to assist with ambulation.? Patient does not utilize home oxygen.? Patient requires assistance with the completion of ADL?s.? Patient?s spouse provides assistance.? Patient identified spouse, Olamide Scott; as surrogate medical decision maker.? Patient?s PCP is Narciso Mancini.? Patient?s compound finisher is Dr. Mcdaniel.? Patient utilizes [facility] for medication services.? Patient does not participate with dialysis.? Plan is for the patient to return home at the time of discharge.? If home health recommended no preferred agency identified. Family will provide transportation on behalf of the patient.? No further discharge needs identified by the patient.? No further intervention required at this time, clinical social work aide will be available to address any further concerns.? Next of Kin: Olamide Scott D/C Plan: Home
--- NOTE | 2025-05-01 16:22 | PD.RESPRO ---
Documentation for date of: 05/01/25 Subjective Subjective Interval history: Patient is seen and examined at bedside. Reports that he is doing well and no acute overnight events. Denies any other complaints General Surgeon, Dr. Hitchcock is following the patient and recommended no surgical intervention for the osteomyelitis of first toe of left foot Started on IV ceftriaxone 2 g and doxycycline p.o. for osteomyelitis. PICC line placement is ordered Noted to have a significant improvement in the sodium to 128 and stopped IV fluids. Exam Vital Signs Temp Pulse Resp BP Pulse Ox O2 Del Method 96.6 F L 89 16 152/90 H 93 L Room Air 05/01/25 12:00 05/01/25 12:00 05/01/25 12:00 05/01/25 12:00 05/01/25 12:00 05/01/25 12:00 Narrative Exam General: Awake. HEENT: Normocephalic, atraumatic, mucous membranes moist. Heart: Regular rate and rhythm, no murmurs. Lungs: Clear to auscultation with no wheezing or crackles. Abdomen: Soft, nondistended, nontender, positive bowel sounds. ?No guarding or rebound tenderness. Neurologic: Alert and oriented x3, no gross neurological deficit, and patient able to move all 4 extremities. Extremities: No edema. noted gangrene on the great toe of left foot Skin: No rash or ecchymoses. Objective Labs 05/01/25 05:30 05/01/25 12:15 Labs: Laboratory Results - last 24 hr 04/30/25 04/30/25 04/30/25 16:40 16:40 16:40 WBC RBC Hgb Hct MCV MCH MCHC RDW Std Deviation Plt Count Neut % (Auto) Lymph % (Auto) [place] % (Auto) Eos % (Auto) Baso % (Auto) Neut # (Auto) Lymph # (Auto) [place] # (Auto) Eos # (Auto) Baso # (Auto) Immature Gran # (Auto) Absolute Nucleated RBC Immature Gran % Nucleated RBC % Sodium Potassium Chloride Carbon Dioxide Anion Gap BUN Creatinine Estim Creat Clear Calc eGFR BUN/Creatinine Ratio Glucose Calculated Osmolality Calcium Corrected Calcium Phosphorus Magnesium Total Bilirubin AST ALT Alkaline Phosphatase Total Protein Albumin Globulin Albumin/Globulin Ratio Triglycerides Cholesterol LDL Cholesterol, Calc HDL Cholesterol Cholesterol/HDL Ratio Ur Collection Type Clean Catch Urine Color Yellow Urine Clarity Clear Urine pH 5.5 Ur Specific [place] 1.013 Urine Protein Negative Urine Glucose (UA) Negative Urine Ketones Negative Urine Blood Negative Urine Nitrite Negative Urine Bilirubin Negative Urine Urobilinogen (Auto) Negative Ur Leukocyte Esterase Positive Urine RBC 7 H Urine WBC 11 H Ur Squamous Epith Cells 2 Urine Bacteria Rare Ur Culture Indicated? Yes Ur Random Creatinine 41 Ur Random Sodium 48.1 48.2 Ur Random Potassium 36 Ur Random Chloride 74.0 74.0 Urine Opiates Screen Negative Urine Fentanyl Screen Negative Ur Barbiturates Screen Negative U Amphetamin/Meth Scrn Negative U Benzodiazepines Scrn Negative U Cocaine Metab Screen Negative U Marijuana (THC) Screen Negative Coccidioides IgM Ab 04/30/25 04/30/25 05/01/25 16:42 18:14 00:22 WBC RBC Hgb Hct MCV MCH MCHC RDW Std Deviation Plt Count Neut % (Auto) Lymph % (Auto) [place] % (Auto) Eos % (Auto) Baso % (Auto) Neut # (Auto) Lymph # (Auto) [place] # (Auto) Eos # (Auto) Baso # (Auto) Immature Gran # (Auto) Absolute Nucleated RBC Immature Gran % Nucleated RBC % Sodium 120 L 122 L Potassium 4.6 Chloride 90 L Carbon Dioxide 21.7 Anion Gap 8 BUN 10 Creatinine 0.5 L Estim Creat Clear Calc Not Performed. eGFR > 60 BUN/Creatinine Ratio 20 Glucose 117 H Calculated Osmolality 242 L Calcium 8.2 L Corrected Calcium Phosphorus Magnesium Total Bilirubin AST ALT Alkaline Phosphatase Total Protein Albumin Globulin Albumin/Globulin Ratio Triglycerides Cholesterol LDL Cholesterol, Calc HDL Cholesterol Cholesterol/HDL Ratio Ur Collection Type Urine Color Urine Clarity Urine pH Ur Specific [place] Urine Protein Urine Glucose (UA) Urine Ketones Urine Blood Urine Nitrite Urine Bilirubin Urine Urobilinogen (Auto) Ur Leukocyte Esterase Urine RBC Urine WBC Ur Squamous Epith Cells Urine Bacteria Ur Culture Indicated? Ur Random Creatinine Ur Random Sodium Ur Random Potassium Ur Random Chloride Urine Opiates Screen Urine Fentanyl Screen Ur Barbiturates Screen U Amphetamin/Meth Scrn U Benzodiazepines Scrn U Cocaine Metab Screen U Marijuana (THC) Screen Coccidioides IgM Ab Negative 05/01/25 05/01/25 05:30 12:15 WBC 8.7 RBC 2.68 L Hgb 8.5 L Hct 23.8 L MCV 89 MCH 31.7 MCHC 35.7 RDW Std Deviation 51.5 H Plt Count 354 Neut % (Auto) 83 H Lymph % (Auto) 10 [place] % (Auto) 6 Eos % (Auto) 1 Baso % (Auto) 0 Neut # (Auto) 7.2 Lymph # (Auto) 0.9 L [place] # (Auto) 0.5 Eos # (Auto) 0.1 Baso # (Auto) 0.0 Immature Gran # (Auto) 0.05 H Absolute Nucleated RBC 0.00 Immature Gran % 1 H Nucleated RBC % 0 Sodium 124 L 128 L Potassium 4.1 D Chloride 94 L Carbon Dioxide 21.4 Anion Gap 9 BUN 6 L Creatinine 0.5 L Estim Creat Clear Calc Not Performed. eGFR > 60 BUN/Creatinine Ratio 12 Glucose 82 Calculated Osmolality 246 L Calcium 7.5 L Corrected Calcium 8.3 L Phosphorus 3.5 Magnesium 1.1 L Total Bilirubin 0.5 AST 23 ALT 12 Alkaline Phosphatase 102 Total Protein 5.3 L Albumin 3.0 L Globulin 2.3 Albumin/Globulin Ratio 1.3 Triglycerides 58 Cholesterol 64 L LDL Cholesterol, Calc 17 HDL Cholesterol 35 L Cholesterol/HDL Ratio 1.8 L Ur Collection Type Urine Color Urine Clarity Urine pH Ur Specific [place] Urine Protein Urine Glucose (UA) Urine Ketones Urine Blood Urine Nitrite Urine Bilirubin Urine Urobilinogen (Auto) Ur Leukocyte Esterase Urine RBC Urine WBC Ur Squamous Epith Cells Urine Bacteria Ur Culture Indicated? Ur Random Creatinine Ur Random Sodium Ur Random Potassium Ur Random Chloride Urine Opiates Screen Urine Fentanyl Screen Ur Barbiturates Screen U Amphetamin/Meth Scrn U Benzodiazepines Scrn U Cocaine Metab Screen U Marijuana (THC) Screen Coccidioides IgM Ab Quality Measures Quality Measures none Advance care planning discussed with:: patient Assessment & Plan Assessment Current Active Medications: Generic Name Dose Route Start Last Admin Trade Name Mehul PRN Reason Stop Dose Admin Acetaminophen 650 mg 04/30/25 16:45 Acetaminophen 325 Mg Tablet PO 05/30/25 16:44 Q6H PRN PAIN SCALE 1-3 (mild Ascorbic Acid 500 mg 05/01/25 21:00 Ascorbic Acid 250 Mg Tablet PO 05/31/25 20:59 BID HUMBERTO Doxycycline Hyclate 100 mg 05/01/25 21:00 Doxycycline 100 Mg Tablet PO 05/08/25 20:59 BID HUMBERTO Heparin Sodium (Porcine) 5,000 unit 04/30/25 17:00 05/01/25 14:54 Heparin Sod Inj 5000 Unit/Ml Vial SC 05/14/25 16:59 5,000 unit Q8HR HUMBERTO Administration Sodium Chloride 1,000 mls @ 100 mls/hr 05/01/25 08:13 05/01/25 08:44 Ns IV 05/31/25 08:11 100 mls/hr On Hold: 05/01/25 12:57 .Q10H HUMBERTO Administration Ceftriaxone Sodium 2 gm/ 50 mls @ 100 mls/hr 05/01/25 09:00 05/01/25 08:43 Sodium Chloride IV 05/08/25 08:59 100 mls/hr QDAY HUMBERTO Administration Ondansetron HCl 4 mg 04/30/25 16:45 Ondansetron Inj 2 Mg/Ml Inj 2 Ml IVP 05/30/25 16:44 Q6H PRN NAUSEA OR VOMITING Protocol Sodium Chloride 1 gm 05/01/25 09:00 05/01/25 08:44 Sodium Chloride 1 Gm Tablet PO 05/31/25 08:59 1 gm DAILY HUMBERTO Administration Zinc Gluconate 50 mg 05/01/25 15:15 05/01/25 15:37 Zinc Gluconate 50 Mg Tablet PO 05/31/25 15:14 50 mg QDAY HUMBERTO Administration Plan Patient is an 79-year-old male with a PMH of recurrent hyponatremia, hypertension, type 2 diabetes mellitus, coronary artery disease status post stents in July 2023, peripheral arterial disease, and BPH who presented on 04/30/2025 after he was told to do so when his outpatient labs showed severe hypoosmolar hyponatremia. Patient was admitted for the work-up and management of severe hypo-osmolar hyponatremia without symptoms. #Acute on chronic hyponatremia, improving #H/O SIADH/Chronic Hyponatremia, on salt tablets #2/2 Drug incompliance 04/30 admission sodium 118 at around 14:30 (calculated osmolality 236, euvolemic-appearing) Per , patient is released from rehab 2weeks before the day of admission and not sure if he received salt tablets in the facility and missed some doses after coming to home Dx: -04/30 urine random electrolytes showed creatinine 41, sodium 48.2, potassium 36, chloride 74.0 Rx: -Nephrology (Dr. Marquez) consulted, appreciate recommendations -Sodium improved to 128 as of today and stopped IV Fluids #?Community-acquired pneumonia #Significant smoking Hx, [id number] 04/30 CXR showed interstitial densities throughout the lungs that were possibly suggestive of pneumonia During initial exam, patient was noted to have an intermittent dry cough but he did not present with leukocytosis or fever Per prior documentation, patient has smoked an average of 1 pack/day for 50-60 years Dx: -Coccidioides IgM antibody assay ordered, showed Negative -COVID lab work-up ordered, showed Negative Rx: -Rocephin 2 g IV qD [04/30--] -Azithromycin 500 mg IV qD [04/30-05/01] -Doxycycline 100mg twice daily(05/01- #Necrotic hallux of right foot #Osteomyelitis of right distal hallux #Hx of peripheral arterial disease #Hx of type 2 diabetes mellitus On physical exam, the big toe of patient's right toe is noted to be blackened and necrotic-appearing (no drainage) and patient is unsure when or how it became as such Likely 2/2 significant peripheral arterial disease as patient's hemoglobin A1c this admission was not that high Dx: -04/30 toe XR ordered, showed osteomyelitis -Ordered hemoglobin A1c, 6.7 Rx: -General Surgery (Dr. Quispe), consulted - recommended no surgical intervention as of now -Wound care referral -PICC line placement tomorrow -Rocephin 2 g IV qD [04/30--] -Doxycycline 100mg twice daily(05/01- Hospital Management: Disposition: Tele Diet: Cardiac GI Prophylaxis: Not Indicated Bowel Prophylaxis: None DVT Prophylaxis: Heparin CODE STATUS: Full Code Patient plan of care was discussed with the attending physician, Dr. Jodie Arita, PGY2
[2025-05-01] MEDS: SODIUM CHLORIDE 0.45 % 1,000 ML 70 ML IV (19:52)
[2025-05-01] MEDS: ASCORBIC ACID 250 MG TABLET 500 MG PO (21:53)
[2025-05-01] MEDS: DOXYCYCLINE 100 MG TABLET PO (21:54)
[2025-05-02] VITALS (15 sets, daily range): BP systolic 107–128; BP diastolic 51–79; PULSE 52–89; RESP 12–97; TEMP 36.1–36.8; O2SAT 96–100
--- NOTE | 2025-05-02 06:00 | XR_ITS ---
Examination: Ultrasound-guided needle placement right brachial vein. Dual-lumen central line placement (PICC line). Fluoroscopy AP chest, portable, single view Exam date and time: May 02, 2025, 1259 hours INDICATIONS: Need for long-term intravenous antibiotic therapy for osteomyelitis foot A timeout was completed verifying correct patient, procedure, site, positioning Informed consent provided Technique: The patient's site was prepped and draped in sterile fashion. Maximum Sterile Barrier Technique used including cap, mask, sterile gown, sterile gloves, and sterile full body drape. If ultrasound technique used: sterile gel and sterile probe covers. Hand Hygiene performed using proper scrub, soap and water, or alcohol-based hand rub. Site right portable apparatus utilized to confirm patency of the right brachial vein Utilizing ultrasonographic guidance successful 21-gauge needle puncture into the right brachial vein Ultrasound images recorded and stored. 5 cc 1% lidocaine administered for local anesthetic. Successful micropuncture with a 21-gauge needle is performed. 0.18 wire guide is then introduced into the SVC under fluoroscopic guidance. Dual-lumen catheter dilator is then introduced, followed by the catheter in the SVC and proper position under fluoroscopic guidance. Successful aspiration of blood and flushing with heparinized saline is then performed in the 2 venous limbs. The catheter sutured in place. Findings: Under fluoroscopy, the tip of the catheter is in good position in the vena cava. Portable chest x-ray, post line placement is ordered. Estimated blood loss 3 cc The patient tolerated the procedure well and was in stable and satisfactory condition at completion of the procedure Impression: Successful ultrasound-guided needle placement right brachial vein Successful placement of dual lumen central line, percutaneous Fluoroscopy 0.01-minute radiation dose 0.21 mGy 1 spot fluoroscopic chest film. AP chest completion procedure demonstrates satisfactory position central line. May use central line.
[2025-05-02] MEDS: HEPARIN SOD INJ 5000 UNIT/ML VIAL SC (06:02)
[2025-05-02 06:13] LABS: Basophils # (Auto) 0.0 Thou/mm3 (0.0-0.2); Basophils % (Auto) 1 % (0-2.5); Eosinophils # (Auto) 0.1 Thou/mm3 (0.0-0.5); Eosinophils % (Auto) 1 % (0-10); Immature Granulocytes Auto 0.03 Thou/mm3 (0.00-0.00); Lymphocytes # (Auto) 1.0 Thou/mm3 (1.0-4.8); Lymphocytes % (Auto) 17 % (10-50); Mean Corpuscular HGB Conc 34.0 g/dl (31.0-37.0); Mean Corpuscular Hemoglobin 31.2 pg (25.0-35.0); Mean Corpuscular Volume 92 fL (80-100); Monocytes # (Auto) 0.4 Thou/mm3 (0.0-0.8); Monocytes % (Auto) 6 % (0-12); Neutrophils # (Auto) 4.6 Thou/mm3 (1.8-7.7); Neutrophils % (Auto) 75 % (37-80); Nucleated Red Blood Cell # 0.00 Thou/mm3 (0.00-0.00); Nucleated Red Blood Cell % 0 /100 WBC (0); Platelet Count 351 Thou/mm3 (140-440); RDW Standard Deviation 53.8 fL (35.1-43.9); Red Blood Count 2.18 Miln/mm3 (4.50-5.90); White Blood Count 6.1 Thou/mm3 (3.8-10.6)
[2025-05-02 06:18] LABS: Hemoglobin 6.8 g/dL (13.5-16.0)
[2025-05-02 06:19] LABS: Hematocrit 20.0 % (41.0-53.0)
[2025-05-02 06:33] LABS: Alanine Aminotransferase 12 U/L (10-49); Albumin, Serum 2.6 gm/dL (3.4-4.8); Albumin/Globulin Ratio 1.2 (1.2-2.2); Alkaline Phosphatase 90 U/L (46-116); Anion Gap 8 (7-16); Aspartate Amino Transferase 23 U/L (0-34); BUN/Creatinine Ratio 20 Ratio (12-20); Bilirubin,Total 0.3 mg/dL (0.3-1.2); Blood Urea Nitrogen 10 mg/dL (9-23); Calcium 7.7 mg/dL (8.3-10.6); Calcium (Corrected) 8.8 mg/dL (8.5-10.1); Carbon Dioxide 21.2 mMol/L (20.0-31.0); Chloride 100 mMol/L (98-107); Creatinine (Component) 0.5 mg/dL (0.6-1.3); Globulin 2.1 gm/dL (2.3-3.5); Glucose 108 mg/dL (74-106); Osmolality,Calculated 258 (275-295); Potassium 3.6 mMol/L (3.4-5.1); Sodium 129 mMol/L (136-145); Total Protein 4.7 gm/dL (5.7-8.2); eGFR > 60 See Note
[2025-05-02 06:46] LABS: Path Review Blood Smear Sent to Pathologist
[2025-05-02] MEDS: SODIUM CHLORIDE 1 GM TABLET PO (08:47)
[2025-05-02] MEDS: ASCORBIC ACID 250 MG TABLET 500 MG PO ×2 (08:47→20:19)
[2025-05-02] MEDS: ZINC GLUCONATE 50 MG TABLET PO (08:47)
[2025-05-02] MEDS: DOXYCYCLINE 100 MG TABLET PO ×2 (08:47→20:18)
[2025-05-02] MEDS: cefTRIAXone 2 GM in SODIUM CHLORIDE 0.9% (Popper) 50 ML IV (08:48)
[2025-05-02 08:55] LABS: Hematocrit 19.4 % (41.0-53.0)
[2025-05-02 08:57] LABS: Hemoglobin 6.7 g/dL (13.5-16.0)
[2025-05-02 10:54] LABS: Hematocrit 20.3 % (41.0-53.0); Hemoglobin 6.8 g/dL (13.5-16.0)
--- NOTE | 2025-05-02 11:08 | ESPR_ITS ---
Documentation for date of: 05/02/25 Subjective Subjective Interval history: Chart review done. Patient seems to be a poor historian. Mr. Scott is a 79-year-old gentleman with a history of diabetes, hypertension, coronary artery disease status post stents, peripheral vascular disease, BPH, recurrent episodes of hyponatremia (supposedly on salt tablets- although recently discontinued per chart and salt tablets were not on her home medications) presented to the emergency department sent by primary care doctor as his sodium was very low. Patient was alert and awake. He was noted to be hypovolemic hyponatremia. 1 L normal saline was given and patient continued on a normal saline IV. Renal consultation requested for hyponatremia. Patient denies any nausea, vomiting. Denies any disorientation or no episodes of seizures. Home medications included Lipitor, Plavix, docusate, finasteride, metformin, metoprolol, multivitamin, Flomax, trazodone In the emergency department a blood pressure 136/79, heart rate 89 afebrile. CBC showed hemoglobin 10. Sodium 118, osmolality 236, Pro-Yousif 0.24, renal function normal. LFTs normal. Urinalysis shows trace bacteria. Urine sodium 48. Urine tox screen negative. Chest x-ray showed no CHF. Questionable pneumonia. Was given Rocephin in the ED and normal saline. Patient currently seen in telemetry. This morning his sodium slightly better at 122. Patient also noted to have right toe necrosis-Dr. Quispe was consulted. 05/02/2025 patient currently seen in telemetry. Resting comfortably. Patient more alert and awake. For right toe necrosis Dr. Hitchcock recommended long- term antibiotics. Patient will be going for PICC line today. Review of Systems Review of Systems Narrative Review of Systems: Patient denies any chest pain, shortness of breath. Denies any nausea, vomiting. Exam Vital Signs Temp Pulse Resp BP Pulse Ox O2 Del Method 36.6 C 67 20 115/55 L 99 Room Air 05/02/25 08:00 05/02/25 09:40 05/02/25 09:40 05/02/25 08:00 05/02/25 08:00 05/02/25 08:00 Narrative Exam GENERAL APPEARANCE: Patient clinically looks rather hypovolemic with dry mucosa NECK: Neck supple, no JVD or bruit CARDIOVASCULAR: Heart regular, no murmurs LUNGS/CHEST: Chest clear to auscultation. No rales, rhonchi, wheezing ABDOMEN: Soft, nontender, nondistended. No masses. Normal bowel sounds. EXTREMITIES: No edema, clubbing or cyanosis. SKIN: Question dry gangrene in the right toe MUSCULOSKELETAL: In bed NEUROLOGICAL : Alert and awake Objective Labs 05/03/25 05:17 05/03/25 05:17 Labs: Laboratory Results - last 24 hr 04/30/25 05/01/25 05/02/25 16:42 12:15 05:07 WBC 6.1 RBC 2.18 L Hgb 6.8 L* Hct 20.0 L* MCV 92 MCH 31.2 MCHC 34.0 RDW Std Deviation 53.8 H Plt Count 351 Neut % (Auto) 75 Lymph % (Auto) 17 [place] % (Auto) 6 Eos % (Auto) 1 Baso % (Auto) 1 Neut # (Auto) 4.6 Lymph # (Auto) 1.0 [place] # (Auto) 0.4 Eos # (Auto) 0.1 Baso # (Auto) 0.0 Immature Gran # (Auto) 0.03 H Absolute Nucleated RBC 0.00 Immature Gran % 1 H Nucleated RBC % 0 Smear Path Review Sent to Pathologist Sodium 128 L 129 L Potassium 3.6 D Chloride 100 Carbon Dioxide 21.2 Anion Gap 8 BUN 10 Creatinine 0.5 L Estim Creat Clear Calc Not Performed. eGFR > 60 BUN/Creatinine Ratio 20 Glucose 108 H Calculated Osmolality 258 L Calcium 7.7 L Corrected Calcium 8.8 Total Bilirubin 0.3 AST 23 ALT 12 Alkaline Phosphatase 90 Total Protein 4.7 L Albumin 2.6 L Globulin 2.1 L Albumin/Globulin Ratio 1.2 Coccidioides IgM Ab Negative Blood Type Antibody Screen Crossmatch Blood Bank Wristband ID 05/02/25 05/02/25 08:12 10:05 WBC RBC Hgb 6.7 L* 6.8 L* Hct 19.4 L* 20.3 L* MCV MCH MCHC RDW Std Deviation Plt Count Neut % (Auto) Lymph % (Auto) [place] % (Auto) Eos % (Auto) Baso % (Auto) Neut # (Auto) Lymph # (Auto) [place] # (Auto) Eos # (Auto) Baso # (Auto) Immature Gran # (Auto) Absolute Nucleated RBC Immature Gran % Nucleated RBC % Smear Path Review Sodium Potassium Chloride Carbon Dioxide Anion Gap BUN Creatinine Estim Creat Clear Calc eGFR BUN/Creatinine Ratio Glucose Calculated Osmolality Calcium Corrected Calcium Total Bilirubin AST ALT Alkaline Phosphatase Total Protein Albumin Globulin Albumin/Globulin Ratio Coccidioides IgM Ab Blood Type O Positive Antibody Screen NEGATIVE Crossmatch See Detail Blood Bank Wristband ID Yes Assessment & Plan Assessment and plan (1) Hyponatremia: Status: Acute Assessment and plan: Hyponatremia secondary to hypovolemia superimposed on underlying SIADH. Apparently patient was having recurrent episodes of hyponatremia and was on salt tablet which was discontinued. Will resume salt tablet. Goal will be no more than 6-8 mEq in 24 hours. Currently on half NS. CAT scan done in December did not show any evidence of malignancy. Continue with every 6 hours serum sodium checks. Alert and awake. No neurological deficits noted. Spoke to primary team (2) Hypertension: Status: Acute Assessment and plan: Blood pressure stable. (3) Gangrene of toe of right foot: Status: Acute Assessment and plan: Surgical consultation was requested. Recommended long-term antibiotics. (4) PVD (peripheral vascular disease): Status: Acute (5) CAD (coronary artery disease): Status: Acute Assessment and plan: Patient seen Dr. Mcdaniel. Asymptomatic. Additional Assessment & Plan Additional Plan: Thank you Harinder for allowing me to participate in the care of Mr. Scott Quality - progress note Quality Measures Quality Measures: VTE prophylaxis Reason for Continued Stay Reason for Continued Stay: further monitoring
--- NOTE | 2025-05-02 11:20 | ESPR_ITS ---
<Statement entered by Rosemary Moody MD - 05/03/25 07:08> Patient was seen and examined by me personally. I have directly supervised and reviewed documentation by the team resident and agree with its findings with any exceptions or additional findings as below. Plan of care was discussed with the attending, Dr. Feliciano. Rosemary Moody, PGY-3 Documentation for date of: 05/02/25 Subjective Subjective Interval history: No overnight events. Patient was examined at bedside; they appear A&Ox2 and in NAD. Today, he complains that his ankles and toes hurt (ongoing since admission). Vitals/labs today significant for Hgb 8.5->6.7 (repeat H&H 6.8), sodium 128->129. Physical exam significant for new duskiness of the 4th toe on right foot but otherwise unchanged from days prior. Due to hemoglobin drop today, patient was transfused with pRBC x1, a FOBT has been ordered, GI has been consulted, and patient has been made NPO for possible endoscopic studies. Patient's sodium levels have corrected adequately and he has been restarted on salt tablets 1 g PO QD. PICC line has been placed today so patient may continue receiving IV antibiotics for his chronic osteomyelitis in the out-patient setting. He is anticipated to be discharged to SNF once medically cleared. Exam Vital Signs Temp Pulse Resp BP Pulse Ox O2 Del Method 97.8 F 67 20 115/55 L 99 Room Air 05/02/25 08:00 05/02/25 09:40 05/02/25 09:40 05/02/25 08:00 05/02/25 08:00 05/02/25 08:00 Narrative Exam General: Awake. HEENT: Normocephalic, atraumatic, mucous membranes moist. Heart: Regular rate and rhythm, no murmurs. Lungs: Clear to auscultation with no wheezing or crackles. Abdomen: Soft, nondistended, nontender, positive bowel sounds. ?No guarding or rebound tenderness. Neurologic: Alert and oriented x3, no gross neurological deficit, and patient able to move all 4 extremities. Extremities: No edema. noted gangrene on the great toe of right foot and duskiness of 4th toe on the right foot Skin: No rash or ecchymoses. Objective Labs 05/03/25 05:17 05/03/25 05:17 Labs: Laboratory Results - last 24 hr 04/30/25 05/01/25 05/02/25 16:42 12:15 05:07 WBC 6.1 RBC 2.18 L Hgb 6.8 L* Hct 20.0 L* MCV 92 MCH 31.2 MCHC 34.0 RDW Std Deviation 53.8 H Plt Count 351 Neut % (Auto) 75 Lymph % (Auto) 17 [place] % (Auto) 6 Eos % (Auto) 1 Baso % (Auto) 1 Neut # (Auto) 4.6 Lymph # (Auto) 1.0 [place] # (Auto) 0.4 Eos # (Auto) 0.1 Baso # (Auto) 0.0 Immature Gran # (Auto) 0.03 H Absolute Nucleated RBC 0.00 Immature Gran % 1 H Nucleated RBC % 0 Smear Path Review Sent to Pathologist Sodium 128 L 129 L Potassium 3.6 D Chloride 100 Carbon Dioxide 21.2 Anion Gap 8 BUN 10 Creatinine 0.5 L Estim Creat Clear Calc Not Performed. eGFR > 60 BUN/Creatinine Ratio 20 Glucose 108 H Calculated Osmolality 258 L Calcium 7.7 L Corrected Calcium 8.8 Total Bilirubin 0.3 AST 23 ALT 12 Alkaline Phosphatase 90 Total Protein 4.7 L Albumin 2.6 L Globulin 2.1 L Albumin/Globulin Ratio 1.2 Coccidioides IgM Ab Negative Blood Type Antibody Screen Crossmatch Blood Bank Wristband ID 05/02/25 05/02/25 08:12 10:05 WBC RBC Hgb 6.7 L* 6.8 L* Hct 19.4 L* 20.3 L* MCV MCH MCHC RDW Std Deviation Plt Count Neut % (Auto) Lymph % (Auto) [place] % (Auto) Eos % (Auto) Baso % (Auto) Neut # (Auto) Lymph # (Auto) [place] # (Auto) Eos # (Auto) Baso # (Auto) Immature Gran # (Auto) Absolute Nucleated RBC Immature Gran % Nucleated RBC % Smear Path Review Sodium Potassium Chloride Carbon Dioxide Anion Gap BUN Creatinine Estim Creat Clear Calc eGFR BUN/Creatinine Ratio Glucose Calculated Osmolality Calcium Corrected Calcium Total Bilirubin AST ALT Alkaline Phosphatase Total Protein Albumin Globulin Albumin/Globulin Ratio Coccidioides IgM Ab Blood Type O Positive Antibody Screen NEGATIVE Crossmatch See Detail Blood Bank Wristband ID Yes Quality Measures Quality Measures none Advance care planning discussed with:: patient Assessment & Plan Assessment Current Active Medications: Generic Name Dose Route Start Last Admin Trade Name Mehul PRN Reason Stop Dose Admin Acetaminophen 650 mg 04/30/25 16:45 Acetaminophen 325 Mg Tablet PO 05/30/25 16:44 Q6H PRN PAIN SCALE 1-3 (mild Ascorbic Acid 500 mg 05/01/25 21:00 05/02/25 08:47 Ascorbic Acid 250 Mg Tablet PO 05/31/25 20:59 500 mg BID HUMBERTO Administration Doxycycline Hyclate 100 mg 05/01/25 21:00 05/02/25 08:47 Doxycycline 100 Mg Tablet PO 05/08/25 20:59 100 mg BID HUMBERTO Administration Heparin Sodium (Porcine) 5,000 unit 04/30/25 17:00 05/02/25 06:02 Heparin Sod Inj 5000 Unit/Ml Vial SC 05/14/25 16:59 5,000 unit On Hold: 05/02/25 07:58 Q8HR HUMBERTO Administration Ceftriaxone Sodium 2 gm/ 50 mls @ 100 mls/hr 05/01/25 09:00 05/02/25 08:48 Sodium Chloride IV 05/08/25 08:59 100 mls/hr QDAY HUMBERTO Administration Ondansetron HCl 4 mg 04/30/25 16:45 Ondansetron Inj 2 Mg/Ml Inj 2 Ml IVP 05/30/25 16:44 Q6H PRN NAUSEA OR VOMITING Protocol Sodium Chloride 1 gm 05/01/25 09:00 05/02/25 08:47 Sodium Chloride 1 Gm Tablet PO 05/31/25 08:59 1 gm DAILY HUMBERTO Administration Zinc Gluconate 50 mg 05/01/25 15:15 05/02/25 08:47 Zinc Gluconate 50 Mg Tablet PO 05/31/25 15:14 50 mg QDAY HUMBERTO Administration Plan Patient is an 79-year-old male with a PMH of recurrent hyponatremia, hypertension, type 2 diabetes mellitus, coronary artery disease status post stents in July 2023, peripheral arterial disease, and BPH who presented on 04/30/2025 after he was told to do so when his outpatient labs showed severe hypoosmolar hyponatremia. Patient was admitted for the work-up and management of severe hypo-osmolar hyponatremia without symptoms. #Acute on chronic hyponatremia, improving #H/O SIADH/chronic hyponatremia, on salt tablets #2/2 drug non-compliance 04/30 admission sodium 118 at around 14:30 (calculated osmolality 236, euvolemic-appearing) Per , patient is released from rehab 2 weeks before the day of admission and not sure if he received salt tablets in the facility and missed some doses after coming to home Dx: -04/30 urine random electrolytes showed creatinine 41, sodium 48.2, potassium 36, chloride 74.0 Rx: -Nephrology (Dr. Marquez) consulted, appreciate recommendations -Sodium improved to 129 as of 05/03 and stopped IV Fluids -Salt tablets 1 g PO QD #?Community-acquired pneumonia #Significant smoking Hx, [id number] 04/30 CXR showed interstitial densities throughout the lungs that were possibly suggestive of pneumonia During initial exam, patient was noted to have an intermittent dry cough but he did not present with leukocytosis or fever Per prior documentation, patient has smoked an average of 1 pack/day for 50-60 years Dx: -Coccidioides IgM antibody assay ordered, showed Negative -COVID lab work-up ordered, showed Negative Rx: -Rocephin 2 g IV QD [04/30--] -Doxycycline 100mg twice daily [05/01--] -Discontinued azithromycin 500 mg IV QD [04/30-05/01] #Necrotic hallux of right foot #Osteomyelitis of right distal hallux #Hx of peripheral arterial disease #Hx of type 2 diabetes mellitus On physical exam, the big toe of patient's right toe is noted to be blackened and necrotic-appearing (no drainage) and patient is unsure when or how it became as such Likely 2/2 significant peripheral arterial disease as patient's hemoglobin A1c this admission was not that high Dx: -04/30 toe XR ordered, showed osteomyelitis -Ordered hemoglobin A1c, 6.7 Rx: -General Surgery (Dr. Quispe), consulted - recommended no surgical intervention as of now -Wound care referral -PICC line placed as of 05/02 -Rocephin 2 g IV QD [04/30--] -Doxycycline 100mg twice daily [05/01--] #?Acute blood loss anemia 05/02 Hgb 8.5->6.7, unclear etiology but suspect blood loss from somewhere s/p pRBC transfusion x 1 on 05/02 Dx: -05/02 FOBT ordered, showed ___ -Pending upper endoscopy Rx: -GI consulted, appreciate recommendations -NPO status -Heparin 5K SC Q8HR held -Continue to monitor CBC, transfuse if Hgb<8 (s/p coronary stent placement) Hospital Management: Disposition: Tele Diet: Cardiac GI Prophylaxis: None Bowel Prophylaxis: None DVT Prophylaxis: Heparin (HELD due to concern for acute blood loss anemia) CODE STATUS: Full Code Patient plan of care was discussed with the attending physician, Dr. Jodie Cristina DO PGY-1 Attending Provider Attestation/Addendum I have discussed and was present for the essential components of the history, physical examination, diagnosis, and treatment plan with the resident. I agree with the patient's care as documented by the resident and amended herein by me. Harinder Feliciano DO. Although this document has been carefully reviewed, there may still be some phonetic and other typographical errors. These errors are purely grammatical due to imperfections in the software program and should not be construed in any way to compromise the substance of the patient's medical care during this visit.
[2025-05-02] MEDS: HEPARIN SOD LOCK SYR 100 UNIT/ML 500 UNIT IV (13:30)
[2025-05-02] MEDS: LIDOCAINE INJ PF 1% 30 ML VIAL EPID (13:34)
--- NOTE | 2025-05-02 14:22 | PC.NURSE ---
[facility] off report given to nirmal shaffer. Nirmal shaffer and I assessed site and dressing. dressing is clean dry and intact. site is soft, flat, nontender, and no signs of hematoma. picc line may be used per md ha order.
--- NOTE | 2025-05-02 18:32 | PD.IMCONS ---
HPI Data of Consult Requesting Physician: Tarun Feliciano DO Primary Care Provider: Narciso Mancini DO Consult Narrative Reason for consult: Drop in creatinine from H/H 6.8 /20.3 History of present illness: 79 years old male presented to the hospital on 04/29/2025 with altered mental status and weakness was found to be hyponatremic which he remains up until today sodium is 122 Patient has a history of coronary artery status post PCI diabetes mellitus type 2 BPH I have been consulted for dropping hemoglobin hematocrit to 6.8 and 20.3 On 04/29/2025 his hemoglobin hematocrit was 8.0/23.4 cc:: cc: Tarun Feliciano DO Review of Systems Review of Systems Systems Reviewed: All systems reviewed, normal except as documented Meds Home Medications and Allergies Home Medications ?Medication ?Instructions ?Recorded ?Confirmed ?Type tamsulosin 0.4 mg capsule (Flomax) 0.4 mg PO QDAY ##0 07/15/16 04/30/25 History finasteride 5 mg tablet 5 mg PO QDAY 07/05/19 04/30/25 History docusate sodium 100 mg capsule 1 cap PO BID 03/04/22 04/30/25 History dupilumab 300 mg/2 mL subcutaneous 2 ml subcut PRN PRN Pain 03/04/22 04/30/25 History syringe (Dupixent) metformin 1,000 mg tablet 1 tab PO BID 03/04/22 04/30/25 History multivitamin 1 tab PO QAM 03/04/22 04/30/25 History sodium chloride 1,000 mg soluble 1 tab PO BID 03/04/22 04/30/25 History tablet Held on 09/03/24. Instructions: Resume on 09/10/24. Hold until repeat CMP in 1 week atorvastatin 80 mg tablet 80 mg PO DAILY 09/01/24 04/30/25 History clopidogrel 75 mg tablet 75 mg PO DAILY 09/01/24 04/30/25 History metoprolol succinate 25 mg 37.5 mg PO DAILY 09/01/24 04/30/25 History tablet,extended release 24 hr trazodone 50 mg tablet 50 mg PO DAILY 09/01/24 09/01/24 History Allergies Allergy/AdvReac Type Severity Reaction Status Date / Time naproxen Allergy Severe DIFFICULTY Verified 12/31/24 08:17 BREATHING Exam Vital Signs Temp Pulse Resp BP Pulse Ox O2 Del Method 97.7 F 67 16 124/61 99 Room Air 05/02/25 16:00 05/02/25 16:00 05/02/25 16:00 05/02/25 16:00 05/02/25 16:00 05/02/25 16:00 Constitutional Comments: Chronically ill-appearing Routine Respiratory Exam Comments: Normal to auscultation Routine Abdominal Exam Comments: Soft nontender Results Labs 05/02/25 10:05 05/02/25 05:07 Labs: Short CBC 05/02/25 05/02/25 05/02/25 Range/Units 05:07 08:12 10:05 WBC 6.1 (3.8-10.6) Thou/mm3 Hgb 6.8 L* 6.7 L* 6.8 L* (13.5-16.0) g/dL Hct 20.0 L* 19.4 L* 20.3 L* (41.0-53.0) % Plt Count 351 (140-440) Thou/mm3 [facility] 05/02/25 05:07 Sodium 129 L Potassium 3.6 D Chloride 100 Carbon Dioxide 21.2 BUN 10 Creatinine 0.5 L Glucose 108 H Calcium 7.7 L Liver Function 05/02/25 Range/Units 05:07 Total Bilirubin 0.3 (0.3-1.2) mg/dL AST 23 (0-34) U/L ALT 12 (10-49) U/L Alkaline Phosphatase 90 (46-116) U/L Albumin 2.6 L (3.4-4.8) gm/dL Assessment and Plan Additional Assessment & Plan Additional Plan: # Anemia multifactorial probably 1 component is anemia of blood loss with a significant drop in hemoglobin hematocrit without change in BUN/creatinine Suggestions iron panel with iron saturation B12 level folate level Reticulocyte count Stool for occult blood Will schedule upper endoscopy with possible therapeutic intervention under intravenous moderate sedation Other medical problems include Hyponatremia Coronary artery status post PCI Diabetes mellitus type 2 BPH Thank you very much for the opportunity to participate in the care of this patient
[2025-05-02 21:33] LABS: Iron 67 mcg/dL (65-175); Percent Iron Saturation 49 % (20-55); Total Iron Binding Capacity 136 mcg/dL (250-425); Unsaturated Iron Binding 69 (225-295)
[2025-05-02 23:16] LABS: Hematocrit 22.4 % (41.0-53.0)
[2025-05-02 23:33] LABS: Hemoglobin 8.0 g/dL (13.5-16.0)
[2025-05-03] VITALS (15 sets, daily range): BP systolic 104–150; BP diastolic 48–79; PULSE 49–88; RESP 12–93; TEMP 36.2–37.1; O2SAT 96–100
[2025-05-03 06:03] LABS: Basophils # (Auto) 0.1 Thou/mm3 (0.0-0.2); Basophils % (Auto) 1 % (0-2.5); Eosinophils # (Auto) 0.1 Thou/mm3 (0.0-0.5); Eosinophils % (Auto) 1 % (0-10); Hematocrit 22.3 % (41.0-53.0); Immature Granulocytes Auto 0.05 Thou/mm3 (0.00-0.00); Lymphocytes # (Auto) 0.7 Thou/mm3 (1.0-4.8); Lymphocytes % (Auto) 12 % (10-50); Mean Corpuscular HGB Conc 35.4 g/dl (31.0-37.0); Mean Corpuscular Hemoglobin 31.0 pg (25.0-35.0); Mean Corpuscular Volume 88 fL (80-100); Monocytes # (Auto) 0.3 Thou/mm3 (0.0-0.8); Monocytes % (Auto) 5 % (0-12); Neutrophils # (Auto) 4.9 Thou/mm3 (1.8-7.7); Neutrophils % (Auto) 80 % (37-80); Nucleated Red Blood Cell # 0.00 Thou/mm3 (0.00-0.00); Nucleated Red Blood Cell % 0 /100 WBC (0); Platelet Count 329 Thou/mm3 (140-440); RDW Standard Deviation 51.3 fL (35.1-43.9); Red Blood Count 2.55 Miln/mm3 (4.50-5.90); White Blood Count 6.2 Thou/mm3 (3.8-10.6)
[2025-05-03 06:07] LABS: Hemoglobin 7.9 g/dL (13.5-16.0)
[2025-05-03 06:37] LABS: Alanine Aminotransferase 13 U/L (10-49); Albumin, Serum 2.6 gm/dL (3.4-4.8); Albumin/Globulin Ratio 1.1 (1.2-2.2); Alkaline Phosphatase 83 U/L (46-116); Anion Gap 8 (7-16); Aspartate Amino Transferase 23 U/L (0-34); BUN/Creatinine Ratio 24 Ratio (12-20); Bilirubin,Total 0.5 mg/dL (0.3-1.2); Blood Urea Nitrogen 12 mg/dL (9-23); Calcium 7.5 mg/dL (8.3-10.6); Calcium (Corrected) 8.6 mg/dL (8.5-10.1); Carbon Dioxide 21.8 mMol/L (20.0-31.0); Chloride 100 mMol/L (98-107); Creatinine (Component) 0.5 mg/dL (0.6-1.3); Globulin 2.3 gm/dL (2.3-3.5); Glucose 109 mg/dL (74-106); Osmolality,Calculated 261 (275-295); Potassium 3.5 mMol/L (3.4-5.1); Sodium 130 mMol/L (136-145); Total Protein 4.9 gm/dL (5.7-8.2); eGFR > 60 See Note
[2025-05-03] MEDS: cefTRIAXone 2 GM in SODIUM CHLORIDE 0.9% (Popper) 50 ML IV (08:32)
[2025-05-03 09:22] LABS: Ferritin 707 ng/mL (10.5-307.3)
[2025-05-03] MEDS: RINGERS LACTATED 1000 ML 1,000 ML 999 ML IV (10:12)
--- NOTE | 2025-05-03 10:22 | ESPR_ITS ---
Documentation for date of: 05/03/25 Subjective Subjective Interval history: No overnight events. Patient was examined at bedside; they appear A&Ox2 and in NAD. Vitals/labs today significant for BP 104/48, HR 57, RR 26, Hgb 7.9, sodium 130. Physical exam was non-contributory. Patient is scheduled for upper endoscopy today to evaluate for active sites of bleeding that might explain his sudden drop in hemoglobin yesterday. GI has also recommended iron panel, B12 level, and folate level which have all been ordered. Otherwise, patient will continue receiving Rocephin and doxycycline IV and salt tablets while we await the results of his EGD. Exam Vital Signs Temp Pulse Resp BP Pulse Ox O2 Del Method 98.7 F 66 21 H 104/48 L 99 Room Air 05/03/25 08:00 05/03/25 09:33 05/03/25 09:33 05/03/25 08:00 05/03/25 08:00 05/03/25 08:00 Narrative Exam General: Awake. HEENT: Normocephalic, atraumatic, mucous membranes moist. Heart: Regular rate and rhythm, no murmurs. Lungs: Clear to auscultation with no wheezing or crackles. Abdomen: Soft, nondistended, nontender, positive bowel sounds. ?No guarding or rebound tenderness. Neurologic: Alert and oriented x3, no gross neurological deficit, and patient able to move all 4 extremities. Extremities: No edema. noted gangrene on the great toe of right foot and d uskiness of 4th toe on the right foot Skin: No rash or ecchymoses. Objective Labs 05/03/25 05:17 05/03/25 05:17 Labs: Laboratory Results - last 24 hr 05/02/25 05/02/25 05/02/25 08:12 10:05 22:39 WBC RBC Hgb 6.8 L* 8.0 L Hct 20.3 L* 22.4 L MCV MCH MCHC RDW Std Deviation Plt Count Neut % (Auto) Lymph % (Auto) [place] % (Auto) Eos % (Auto) Baso % (Auto) Neut # (Auto) Lymph # (Auto) [place] # (Auto) Eos # (Auto) Baso # (Auto) Immature Gran # (Auto) Absolute Nucleated RBC Immature Gran % Nucleated RBC % Sodium Potassium Chloride Carbon Dioxide Anion Gap BUN Creatinine Estim Creat Clear Calc eGFR BUN/Creatinine Ratio Glucose Calculated Osmolality Calcium Corrected Calcium Iron 67 TIBC 136 L Iron Saturation 49 Unsat Iron Binding 69 L Ferritin Total Bilirubin AST ALT Alkaline Phosphatase Total Protein Albumin Globulin Albumin/Globulin Ratio Blood Type O Positive Antibody Screen NEGATIVE Crossmatch See Detail Blood Bank Wristband ID Yes 05/03/25 05:17 WBC 6.2 RBC 2.55 L Hgb 7.9 L Hct 22.3 L MCV 88 MCH 31.0 MCHC 35.4 RDW Std Deviation 51.3 H Plt Count 329 Neut % (Auto) 80 Lymph % (Auto) 12 [place] % (Auto) 5 Eos % (Auto) 1 Baso % (Auto) 1 Neut # (Auto) 4.9 Lymph # (Auto) 0.7 L [place] # (Auto) 0.3 Eos # (Auto) 0.1 Baso # (Auto) 0.1 Immature Gran # (Auto) 0.05 H Absolute Nucleated RBC 0.00 Immature Gran % 1 H Nucleated RBC % 0 Sodium 130 L Potassium 3.5 Chloride 100 Carbon Dioxide 21.8 Anion Gap 8 BUN 12 Creatinine 0.5 L Estim Creat Clear Calc Not Performed. eGFR > 60 BUN/Creatinine Ratio 24 H Glucose 109 H Calculated Osmolality 261 L Calcium 7.5 L Corrected Calcium 8.6 Iron TIBC Iron Saturation Unsat Iron Binding Ferritin 707 H Total Bilirubin 0.5 AST 23 ALT 13 Alkaline Phosphatase 83 Total Protein 4.9 L Albumin 2.6 L Globulin 2.3 Albumin/Globulin Ratio 1.1 L Blood Type Antibody Screen Crossmatch Blood Bank Wristband ID Quality Measures Quality Measures none Advance care planning discussed with:: patient Assessment & Plan Assessment Current Active Medications: Generic Name Dose Route Start Last Admin Trade Name Freq PRN Reason Stop Dose Admin Acetaminophen 650 mg 04/30/25 16:45 Acetaminophen 325 Mg Tablet PO 05/30/25 16:44 Q6H PRN PAIN SCALE 1-3 (mild Ascorbic Acid 500 mg 05/01/25 21:00 05/03/25 08:34 Ascorbic Acid 250 Mg Tablet PO 05/31/25 20:59 Not Given BID HUMBRETO Bisacodyl 5 mg 05/03/25 09:00 05/03/25 10:13 Bisacodyl 5 Mg Tabec PO 06/02/25 08:59 Not Given QDAY [facility] Protocol Doxycycline Hyclate 100 mg 05/01/25 21:00 05/03/25 08:34 Doxycycline 100 Mg Tablet PO 05/08/25 20:59 Not Given BID HUMBERTO Heparin Sodium (Porcine) 5,000 unit 04/30/25 17:00 05/02/25 06:02 Heparin Sod Inj 5000 Unit/Ml Vial SC 05/14/25 16:59 5,000 unit On Hold: 05/02/25 07:58 Q8HR HUMBERTO Administration Ceftriaxone Sodium 2 gm/ 50 mls @ 100 mls/hr 05/01/25 09:00 05/03/25 08:32 Sodium Chloride IV 05/08/25 08:59 100 mls/hr QDAY HUMBERTO Administration Lactated Ringer's 1,000 mls @ 999 mls/hr 05/03/25 09:45 05/03/25 10:12 Lactated Ringers IV 05/03/25 10:45 999 mls/hr .Q1H1M ONE Administration Ondansetron HCl 4 mg 04/30/25 16:45 Ondansetron Inj 2 Mg/Ml Inj 2 Ml IVP 05/30/25 16:44 Q6H PRN NAUSEA OR VOMITING Protocol Sennosides 1 tab 05/03/25 09:00 05/03/25 10:13 Senna Tablet PO 06/02/25 08:59 Not Given QDAY [facility] Protocol Sodium Chloride 1 gm 05/01/25 09:00 05/03/25 08:34 Sodium Chloride 1 Gm Tablet PO 05/31/25 08:59 Not Given DAILY HUMBERTO Zinc Gluconate 50 mg 05/01/25 15:15 05/03/25 08:34 Zinc Gluconate 50 Mg Tablet PO 05/31/25 15:14 Not Given QDAY HUMBERTO Plan Patient is an 79-year-old male with a PMH of recurrent hyponatremia, hypertension, type 2 diabetes mellitus, coronary artery disease status post stents in July 2023, peripheral arterial disease, and BPH who presented on 04/30/2025 after he was told to do so when his outpatient labs showed severe hypoosmolar hyponatremia. Patient was admitted for the work-up and management of severe hypo-osmolar hyponatremia without symptoms. #Acute on chronic hyponatremia, improving #H/O SIADH/chronic hyponatremia, on salt tablets #2/2 drug non-compliance 04/30 admission sodium 118 at around 14:30 (calculated osmolality 236, euvolemic-appearing) Per , patient is released from rehab 2 weeks before the day of admission and not sure if he received salt tablets in the facility and missed some doses after coming to home Dx: -04/30 urine random electrolytes showed creatinine 41, sodium 48.2, potassium 36, chloride 74.0 Rx: -Nephrology (Dr. Marquez) consulted, appreciate recommendations -Sodium improved to 129 as of 05/03 and stopped IV Fluids -Salt tablets 1 g PO QD #?Community-acquired pneumonia #Significant smoking Hx, [id number] 04/30 CXR showed interstitial densities throughout the lungs that were possibly suggestive of pneumonia During initial exam, patient was noted to have an intermittent dry cough but he did not present with leukocytosis or fever Per prior documentation, patient has smoked an average of 1 pack/day for 50-60 years Dx: -Coccidioides IgM antibody assay ordered, showed Negative -COVID lab work-up ordered, showed Negative Rx: -Rocephin 2 g IV QD [04/30--] -Doxycycline 100mg twice daily [05/01--] -Discontinued azithromycin 500 mg IV QD [04/30-05/01] #Necrotic hallux of right foot #Osteomyelitis of right distal hallux #Hx of peripheral arterial disease #Hx of type 2 diabetes mellitus On physical exam, the big toe of patient's right toe is noted to be blackened and necrotic-appearing (no drainage) and patient is unsure when or how it became as such Likely 2/2 significant peripheral arterial disease as patient's hemoglobin A1c this admission was not that high Dx: -04/30 toe XR ordered, showed osteomyelitis -Ordered hemoglobin A1c, 6.7 Rx: -General Surgery (Dr. Quispe), consulted - recommended no surgical intervention as of now -Wound care referral -PICC line placed as of 05/02 -Rocephin 2 g IV QD [04/30--] -Doxycycline 100mg twice daily [05/01--] #?Acute blood loss anemia 05/02 Hgb 8.5->6.7, unclear etiology but suspect blood loss from somewhere s/p pRBC transfusion x 1 on 05/02 Dx: -05/02 FOBT ordered, showed ___ -05/03 upper endoscopy completed, showed ___ -Iron panel and ferritin ordered, showed iron 67, TIBC 136, iron saturation 49, unsaturated iron binding 69, and ferritin 707 (not suggestive of LOTUS) -B12 and folate ordered, showed ___ Rx: -GI consulted, appreciate recommendations -NPO status -Heparin 5K SC Q8HR held -Continue to monitor CBC, transfuse if Hgb<8 (s/p coronary stent placement) Hospital Management: Disposition: Tele Diet: Cardiac GI Prophylaxis: None Bowel Prophylaxis: None DVT Prophylaxis: Heparin (HELD due to concern for acute blood loss anemia) CODE STATUS: Full Code Patient plan of care was discussed with the attending physician, Dr. Jodie Cristina DO PGY-1 Attending Provider Attestation/Addendum I have discussed and was present for the essential components of the history, physical examination, diagnosis, and treatment plan with the resident. I agree with the patient's care as documented by the resident and amended herein by me. Harinder Feliciano DO. Although this document has been carefully reviewed, there may still be some phonetic and other typographical errors. These errors are purely grammatical due to imperfections in the software program and should not be construed in any way to compromise the substance of the patient's medical care during this visit. Patient seen and evaluated this AM. No acute events overnight, vital signs stable, patient afebrile, no bowel movements recorded overnight. Significant labs include a hemoglobin of 7.9 today and a sodium of 130. Patient did undergo an EGD today for possible GI bleed, significant for gastritis hence the patient will be prepped for colonoscopy,likely performed tomorrow. Patient does not appear to be iron deficient at this time. For the patient sodium we will continue sodium chloride tablets 1 g p.o. daily per nephrology recommendations, for the patient's left toe osteomyelitis and cellulitis will continue IV ceftriaxone 2 g daily and doxycycline 100 mg p.o. twice daily until 12 June 2025. Will continue to monitor while she is here possible discharge tomorrow, PICC line placed yesterday. Continue to monitor closely while he is here.
--- NOTE | 2025-05-03 11:31 | ESPR_ITS ---
Documentation for date of: 05/03/25 Subjective Subjective Interval history: Chart review done. Patient seems to be a poor historian. Mr. Scott is a 79-year-old gentleman with a history of diabetes, hypertension, coronary artery disease status post stents, peripheral vascular disease, BPH, recurrent episodes of hyponatremia (supposedly on salt tablets- although recently discontinued per chart and salt tablets were not on her home medications) presented to the emergency department sent by primary care doctor as his sodium was very low. Patient was alert and awake. He was noted to be hypovolemic hyponatremia. 1 L normal saline was given and patient continued on a normal saline IV. Renal consultation requested for hyponatremia. Patient denies any nausea, vomiting. Denies any disorientation or no episodes of seizures. Home medications included Lipitor, Plavix, docusate, finasteride, metformin, metoprolol, multivitamin, Flomax, trazodone In the emergency department a blood pressure 136/79, heart rate 89 afebrile. CBC showed hemoglobin 10. Sodium 118, osmolality 236, Pro-Yousif 0.24, renal function normal. LFTs normal. Urinalysis shows trace bacteria. Urine sodium 48. Urine tox screen negative. Chest x-ray showed no CHF. Questionable pneumonia. Was given Rocephin in the ED and normal saline. Patient currently seen in telemetry. This morning his sodium slightly better at 122. Patient also noted to have right toe necrosis-Dr. Quispe was consulted. 05/02/2025 patient currently seen in telemetry. Resting comfortably. Patient more alert and awake. For right toe necrosis Dr. Hitchcock recommended long- term antibiotics. Patient will be going for PICC line today. 05/03/2025: Patient seen and examined in telemetry this morning. Currently oriented to self only. Again no urine output noted to be charted. NA improved to 130 from 129 and osmolarity improved from 258-261. Continue sodium chloride tabs once daily, discontinue half-normal saline IV fluid. Exam Vital Signs Temp Pulse Resp BP Pulse Ox O2 Del Method O2 Flow Rate 98.7 F 60 17 144/60 H 100 Room Air 3 05/03/25 08:00 05/03/25 11:20 05/03/25 11:20 05/03/25 11:20 05/03/25 11:20 05/03/25 08:00 05/03/25 11:20 Narrative Exam GENERAL APPEARANCE: Patient clinically looks euvolemic NECK: Neck supple, no JVD or bruit CARDIOVASCULAR: Heart regular, no murmurs LUNGS/CHEST: Chest clear to auscultation. No rales, rhonchi, wheezing ABDOMEN: Soft, nontender, nondistended. No masses. Normal bowel sounds. EXTREMITIES: No edema, clubbing or cyanosis. SKIN: dry gangrene in the right toe - demarcated MUSCULOSKELETAL: In bed NEUROLOGICAL : Alert and awake Objective Labs 05/04/25 05:12 05/04/25 05:12 Labs: Laboratory Results - last 24 hr 05/02/25 05/02/25 05/02/25 08:12 10:05 22:39 WBC RBC Hgb 8.0 L Hct 22.4 L MCV MCH MCHC RDW Std Deviation Plt Count Neut % (Auto) Lymph % (Auto) [place] % (Auto) Eos % (Auto) Baso % (Auto) Neut # (Auto) Lymph # (Auto) [place] # (Auto) Eos # (Auto) Baso # (Auto) Immature Gran # (Auto) Absolute Nucleated RBC Immature Gran % Nucleated RBC % Sodium Potassium Chloride Carbon Dioxide Anion Gap BUN Creatinine Estim Creat Clear Calc eGFR BUN/Creatinine Ratio Glucose Calculated Osmolality Calcium Corrected Calcium Iron 67 TIBC 136 L Iron Saturation 49 Unsat Iron Binding 69 L Ferritin Total Bilirubin AST ALT Alkaline Phosphatase Total Protein Albumin Globulin Albumin/Globulin Ratio Blood Type O Positive Antibody Screen NEGATIVE Crossmatch See Detail Blood Bank Wristband ID Yes 05/03/25 05:17 WBC 6.2 RBC 2.55 L Hgb 7.9 L Hct 22.3 L MCV 88 MCH 31.0 MCHC 35.4 RDW Std Deviation 51.3 H Plt Count 329 Neut % (Auto) 80 Lymph % (Auto) 12 [place] % (Auto) 5 Eos % (Auto) 1 Baso % (Auto) 1 Neut # (Auto) 4.9 Lymph # (Auto) 0.7 L [place] # (Auto) 0.3 Eos # (Auto) 0.1 Baso # (Auto) 0.1 Immature Gran # (Auto) 0.05 H Absolute Nucleated RBC 0.00 Immature Gran % 1 H Nucleated RBC % 0 Sodium 130 L Potassium 3.5 Chloride 100 Carbon Dioxide 21.8 Anion Gap 8 BUN 12 Creatinine 0.5 L Estim Creat Clear Calc Not Performed. eGFR > 60 BUN/Creatinine Ratio 24 H Glucose 109 H Calculated Osmolality 261 L Calcium 7.5 L Corrected Calcium 8.6 Iron TIBC Iron Saturation Unsat Iron Binding Ferritin 707 H Total Bilirubin 0.5 AST 23 ALT 13 Alkaline Phosphatase 83 Total Protein 4.9 L Albumin 2.6 L Globulin 2.3 Albumin/Globulin Ratio 1.1 L Blood Type Antibody Screen Crossmatch Blood Bank Wristband ID Quality Measures Quality Measures none Advance care planning discussed with:: patient Assessment & Plan Assessment Current Active Medications: Generic Name Dose Route Start Last Admin Trade Name Freq PRN Reason Stop Dose Admin Acetaminophen 650 mg 04/30/25 16:45 Acetaminophen 325 Mg Tablet PO 05/30/25 16:44 Q6H PRN PAIN SCALE 1-3 (mild Ascorbic Acid 500 mg 05/01/25 21:00 05/03/25 08:34 Ascorbic Acid 250 Mg Tablet PO 05/31/25 20:59 Not Given BID HUMBERTO Bisacodyl 5 mg 05/03/25 09:00 05/03/25 10:13 Bisacodyl 5 Mg Tabec PO 06/02/25 08:59 Not Given QDAY [facility] Protocol Diphenhydramine HCl 25 mg 05/03/25 11:10 Diphenhydramine Inj 50 Mg/Ml Vial IVP 05/03/25 13:10 [id number] PRN MODERATE SEDATION Doxycycline Hyclate 100 mg 05/01/25 21:00 05/03/25 08:34 Doxycycline 100 Mg Tablet PO 05/08/25 20:59 Not Given BID HUMBERTO Fentanyl Citrate 50 mcg 05/03/25 11:10 Fentanyl Cit Inj 50 Mcg/Ml Amp 2ml IVP 05/03/25 13:10 Q2M PRN MODERATE SEDATION Heparin Sodium (Porcine) 5,000 unit 04/30/25 17:00 05/02/25 06:02 Heparin Sod Inj 5000 Unit/Ml Vial SC 05/14/25 16:59 5,000 unit On Hold: 05/02/25 07:58 Q8HR HUMBERTO Administration Ceftriaxone Sodium 2 gm/ 50 mls @ 100 mls/hr 05/01/25 09:00 05/03/25 08:32 Sodium Chloride IV 05/08/25 08:59 100 mls/hr QDAY HUMBERTO Administration Midazolam HCl 2 mg 05/03/25 11:10 Midazolam Inj 1 Mg/Ml Vial 2 Ml IVP 05/03/25 13:10 Q2M PRN Moderate Sedation Ondansetron HCl 4 mg 04/30/25 16:45 Ondansetron Inj 2 Mg/Ml Inj 2 Ml IVP 05/30/25 16:44 Q6H PRN NAUSEA OR VOMITING Protocol Sennosides 1 tab 05/03/25 09:00 05/03/25 10:13 Senna Tablet PO 06/02/25 08:59 Not Given QDAY HUMBERTO Protocol Sodium Chloride 1 gm 05/01/25 09:00 05/03/25 08:34 Sodium Chloride 1 Gm Tablet PO 05/31/25 08:59 Not Given DAILY HUMBERTO Zinc Gluconate 50 mg 05/01/25 15:15 05/03/25 08:34 Zinc Gluconate 50 Mg Tablet PO 05/31/25 15:14 Not Given QDAY HUMBERTO Plan Patient is an 79-year-old male with a PMH of recurrent hyponatremia, hypertension, type 2 diabetes mellitus, coronary artery disease status post stents in July 2023, peripheral arterial disease, and BPH who presented on 04/30/2025 after he was told to do so when his outpatient labs showed severe hypoosmolar hyponatremia. Patient was admitted for the work-up and management of severe, asymptomatic hypo-osmolar hyponatremia. 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 Apparently patient was having recurrent episodes of hyponatremia and was on salt tablet which was discontinued. Will resume salt tablet. Goal will be no more than 6-8 mEq in 24 hours. . CAT scan done in December did not show any evidence of malignancy. Continue with every 6 hours serum sodium checks. Alert and awake. No neurological deficits noted. Spoke to primary team Plan: ? Recommend continue sodium chloride tabs once daily ? Discontinued half-normal saline IV fluids ? Thank you for the opportunity to take part in the care of Mr. Scott (2) Hypertension: Status: Acute Assessment and plan: Blood pressure stable. (3) Gangrene of toe of right foot: Status: Acute Assessment and plan: Surgical consultation was requested. Recommended long-term antibiotics. (4) PVD (peripheral vascular disease): Status: Acute (5) CAD (coronary artery disease): Status: Acute Assessment and plan: Patient seen Dr. Mcdaniel. Asymptomatic. Plan of care discussed with Attending Dr. Alma Garcia MD PGY 2 Disclaimer: This note was dictated by speech recognition. Minor errors in secondary connector armature may be present due to voice recognition software. Attending Provider Attestation/Addendum Patient currently seen and examined with resident physician Dr. Garcia. Note reviewed, agree with findings and recommendations. Hyponatremia secondary to underlying SIADH in the setting of hypovolemia. Continue with salt tablets. Regarding the right toe dry gangrene-on long-term antibiotics. Of anemia-endoscopy showed gastritis. Pending colonoscopy. Discharge planning per primary team.
--- NOTE | 2025-05-03 12:24 | SUR.PHASEI ---
1213-PATIENT RECIEVED INTO [facility] , REPORT RECEIVED FROM DEYA CABRERA, VSS NO S/S OF DISTRESS NOTED.
--- NOTE | 2025-05-03 12:26 | SUR.PHASEI ---
1225-PATIENT MORE ALERT DENIES ANY PAIN OR DISCOMFORT.
--- NOTE | 2025-05-03 12:39 | SUR.PHASEI ---
1235-REPORT CALLED TO AMBER CABRERA, PATIENT TRANSFERRED BACK TO ROOM 276 BY DANIELLE CABRERA IN STABLE CONDITION.
--- NOTE | 2025-05-03 14:33 | PC.SS ---
Rounding: Pending colonoscopy
[2025-05-03 14:35] LABS: Cocci Serology, IgG Negative (Negative)
[2025-05-03] MEDS: NA SU/NAHCO3/KC/PEG (Golytely) 4,000 ML BTL 4000 ML PO (14:48)
[2025-05-03] MEDS: DOXYCYCLINE 100 MG TABLET PO (19:59)
[2025-05-03] MEDS: ASCORBIC ACID 250 MG TABLET 500 MG PO (19:59)
[2025-05-04] VITALS: BP 125/57; PULSE 58; PULSE 61; RESP 20; TEMP 36.1; O2SAT 97
[2025-05-04 04:00] VITALS: BP 118/62; PULSE 57; PULSE 63; RESP 19; TEMP 36.5; O2SAT 97
[2025-05-04 05:44] LABS: Basophils # (Auto) 0.0 Thou/mm3 (0.0-0.2); Basophils % (Auto) 1 % (0-2.5); Eosinophils # (Auto) 0.1 Thou/mm3 (0.0-0.5); Eosinophils % (Auto) 2 % (0-10); Hematocrit 22.8 % (41.0-53.0); Immature Granulocytes Auto 0.03 Thou/mm3 (0.00-0.00); Lymphocytes # (Auto) 0.9 Thou/mm3 (1.0-4.8); Lymphocytes % (Auto) 14 % (10-50); Mean Corpuscular HGB Conc 34.6 g/dl (31.0-37.0); Mean Corpuscular Hemoglobin 30.4 pg (25.0-35.0); Mean Corpuscular Volume 88 fL (80-100); Monocytes # (Auto) 0.3 Thou/mm3 (0.0-0.8); Monocytes % (Auto) 5 % (0-12); Neutrophils # (Auto) 4.7 Thou/mm3 (1.8-7.7); Neutrophils % (Auto) 78 % (37-80); Nucleated Red Blood Cell # 0.00 Thou/mm3 (0.00-0.00); Nucleated Red Blood Cell % 0 /100 WBC (0); Platelet Count 291 Thou/mm3 (140-440); RDW Standard Deviation 51.4 fL (35.1-43.9); Red Blood Count 2.60 Miln/mm3 (4.50-5.90); White Blood Count 6.1 Thou/mm3 (3.8-10.6)
[2025-05-04 05:45] LABS: Hemoglobin 7.9 g/dL (13.5-16.0)
[2025-05-04 06:30] LABS: Alanine Aminotransferase 17 U/L (10-49); Albumin, Serum 2.6 gm/dL (3.4-4.8); Albumin/Globulin Ratio 1.2 (1.2-2.2); Alkaline Phosphatase 82 U/L (46-116); Anion Gap 9 (7-16); Aspartate Amino Transferase 28 U/L (0-34); BUN/Creatinine Ratio 15 Ratio (12-20); Bilirubin,Total 0.5 mg/dL (0.3-1.2); Blood Urea Nitrogen 6 mg/dL (9-23); Calcium 7.3 mg/dL (8.3-10.6); Calcium (Corrected) 8.4 mg/dL (8.5-10.1); Carbon Dioxide 23.3 mMol/L (20.0-31.0); Chloride 97 mMol/L (98-107); Creatinine (Component) 0.4 mg/dL (0.6-1.3); Globulin 2.2 gm/dL (2.3-3.5); Glucose 109 mg/dL (74-106); Osmolality,Calculated 257 (275-295); Potassium 3.1 mMol/L (3.4-5.1); Sodium 129 mMol/L (136-145); Total Protein 4.8 gm/dL (5.7-8.2); eGFR > 60 See Note
[2025-05-04 08:00] VITALS: BP 127/59; PULSE 56; PULSE 57; RESP 22; TEMP 36.6; O2SAT 99
[2025-05-04] MEDS: DOXYCYCLINE 100 MG TABLET PO ×2 (09:57→21:09)
[2025-05-04] MEDS: ASCORBIC ACID 250 MG TABLET 500 MG PO ×2 (09:57→21:09)
[2025-05-04] MEDS: cefTRIAXone 2 GM in SODIUM CHLORIDE 0.9% (Popper) 50 ML IV (09:58)
[2025-05-04] MEDS: SODIUM CHLORIDE 1 GM TABLET PO (09:58)
[2025-05-04] MEDS: ZINC GLUCONATE 50 MG TABLET PO (09:58)
--- NOTE | 2025-05-04 10:38 | ESPR_ITS ---
Documentation for date of: 05/04/25 Subjective Subjective Interval history: Chart review done. Patient seems to be a poor historian. Mr. Scott is a 79-year-old gentleman with a history of diabetes, hypertension, coronary artery disease status post stents, peripheral vascular disease, BPH, recurrent episodes of hyponatremia (supposedly on salt tablets- although recently discontinued per chart and salt tablets were not on her home medications) presented to the emergency department sent by primary care doctor as his sodium was very low. Patient was alert and awake. He was noted to be hypovolemic hyponatremia. 1 L normal saline was given and patient continued on a normal saline IV. Renal consultation requested for hyponatremia. Patient denies any nausea, vomiting. Denies any disorientation or no episodes of seizures. Home medications included Lipitor, Plavix, docusate, finasteride, metformin, metoprolol, multivitamin, Flomax, trazodone In the emergency department a blood pressure 136/79, heart rate 89 afebrile. CBC showed hemoglobin 10. Sodium 118, osmolality 236, Pro-Yousif 0.24, renal function normal. LFTs normal. Urinalysis shows trace bacteria. Urine sodium 48. Urine tox screen negative. Chest x-ray showed no CHF. Questionable pneumonia. Was given Rocephin in the ED and normal saline. Patient currently seen in telemetry. This morning his sodium slightly better at 122. Patient also noted to have right toe necrosis-Dr. Quispe was consulted. 05/02/2025 patient currently seen in telemetry. Resting comfortably. Patient more alert and awake. For right toe necrosis Dr. Hitchcock recommended long- term antibiotics. Patient will be going for PICC line today. 05/03/2025: Patient seen and examined in telemetry this morning. Currently oriented to self only. Again no urine output noted to be charted. NA improved to 130 from 129 and osmolarity improved from 258-261. Continue sodium chloride tabs once daily, discontinue half-normal saline IV fluid. 05/04/2025: Patient seen and examined at bedside this morning. Currently only oriented to self, but does endorse right great toe pain. Again no urine output was noted to be charted, but patient's diapers were wet. Sodium currently 129 and OSM 257. Continue NaCl tabs once daily. Once primary team is ready, patient is cleared from nephrology standpoint for discharge. Exam Vital Signs Temp Pulse Resp BP Pulse Ox O2 Del Method O2 Flow Rate 98 F 56 L 22 H 127/59 L 99 Room Air 3 05/04/25 08:00 05/04/25 08:00 05/04/25 08:00 05/04/25 08:00 05/04/25 08:00 05/04/25 08:00 05/03/25 12:10 Narrative Exam GENERAL APPEARANCE: Patient clinically looks euvolemic NECK: Neck supple, no JVD or bruit CARDIOVASCULAR: Heart regular, no murmurs LUNGS/CHEST: Chest clear to auscultation. No rales, rhonchi, wheezing ABDOMEN: Soft, nontender, nondistended. No masses. Normal bowel sounds. EXTREMITIES: No edema, clubbing or cyanosis. SKIN: dry gangrene in the right toe - demarcated MUSCULOSKELETAL: In bed NEUROLOGICAL : Alert and awake Objective Labs 05/05/25 05:12 05/05/25 05:12 Labs: Laboratory Results - last 24 hr 04/30/25 05/04/25 16:42 05:12 WBC 6.1 RBC 2.60 L Hgb 7.9 L Hct 22.8 L MCV 88 MCH 30.4 MCHC 34.6 RDW Std Deviation 51.4 H Plt Count 291 D Neut % (Auto) 78 Lymph % (Auto) 14 [place] % (Auto) 5 Eos % (Auto) 2 Baso % (Auto) 1 Neut # (Auto) 4.7 Lymph # (Auto) 0.9 L [place] # (Auto) 0.3 Eos # (Auto) 0.1 Baso # (Auto) 0.0 Immature Gran # (Auto) 0.03 H Absolute Nucleated RBC 0.00 Immature Gran % 1 H Nucleated RBC % 0 Sodium 129 L Potassium 3.1 L Chloride 97 L Carbon Dioxide 23.3 Anion Gap 9 BUN 6 L Creatinine 0.4 L Estim Creat Clear Calc Not Performed. eGFR > 60 BUN/Creatinine Ratio 15 Glucose 109 H Calculated Osmolality 257 L Calcium 7.3 L Corrected Calcium 8.4 L Total Bilirubin 0.5 AST 28 ALT 17 Alkaline Phosphatase 82 Total Protein 4.8 L Albumin 2.6 L Globulin 2.2 L Albumin/Globulin Ratio 1.2 Coccidioides IgG Ab Negative Quality Measures Quality Measures none Advance care planning discussed with:: patient Assessment & Plan Assessment Current Active Medications: Generic Name Dose Route Start Last Admin Trade Name Kraigq PRN Reason Stop Dose Admin Acetaminophen 650 mg 04/30/25 16:45 Acetaminophen 325 Mg Tablet PO 05/30/25 16:44 Q6H PRN PAIN SCALE 1-3 (mild Ascorbic Acid 500 mg 05/01/25 21:00 05/04/25 09:57 Ascorbic Acid 250 Mg Tablet PO 05/31/25 20:59 500 mg BID HUMBERTO Administration Bisacodyl 5 mg 05/03/25 09:00 05/04/25 09:57 Bisacodyl 5 Mg Tabec PO 06/02/25 08:59 5 mg QDAY HUMBERTO Administration Protocol Doxycycline Hyclate 100 mg 05/01/25 21:00 05/04/25 09:57 Doxycycline 100 Mg Tablet PO 05/08/25 20:59 100 mg BID HUMBERTO Administration Heparin Sodium (Porcine) 5,000 unit 04/30/25 17:00 05/02/25 06:02 Heparin Sod Inj 5000 Unit/Ml Vial SC 05/14/25 16:59 5,000 unit On Hold: 05/02/25 07:58 Q8HR HUMBERTO Administration Ceftriaxone Sodium 2 gm/ 50 mls @ 100 mls/hr 05/01/25 09:00 05/04/25 09:58 Sodium Chloride IV 05/08/25 08:59 100 mls/hr QDAY HUMBERTO Administration Ondansetron HCl 4 mg 04/30/25 16:45 Ondansetron Inj 2 Mg/Ml Inj 2 Ml IVP 05/30/25 16:44 Q6H PRN NAUSEA OR VOMITING Protocol Sennosides 1 tab 05/03/25 09:00 05/04/25 09:57 Senna Tablet PO 06/02/25 08:59 1 tab QDAY HUMBERTO Administration Protocol Sodium Chloride 1 gm 05/01/25 09:00 05/04/25 09:58 Sodium Chloride 1 Gm Tablet PO 05/31/25 08:59 1 gm DAILY HUMBERTO Administration Zinc Gluconate 50 mg 05/01/25 15:15 05/04/25 09:58 Zinc Gluconate 50 Mg Tablet PO 05/31/25 15:14 50 mg QDAY HUMBERTO Administration Plan Patient is an 79-year-old male with a PMH of recurrent hyponatremia, hypertension, type 2 diabetes mellitus, coronary artery disease status post stents in July 2023, peripheral arterial disease, and BPH who presented on 04/30/2025 after he was told to do so when his outpatient labs showed severe hypoosmolar hyponatremia. Patient was admitted for the work-up and management of severe, asymptomatic hypo-osmolar hyponatremia. 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 Apparently patient was having recurrent episodes of hyponatremia and was on salt tablet which was discontinued. Will resume salt tablet. Goal will be no more than 6-8 mEq in 24 hours. . CAT scan done in December did not show any evidence of malignancy. Continue with every 6 hours serum sodium checks. Alert and awake. No neurological deficits noted. Spoke to primary team Plan: ? Recommend continue sodium chloride tabs once daily ? Once patient is clinically stable, patient cleared for discharge from nephrology standpoint. Continue with sodium chloride tabs once daily as outpatient. ? Thank you for the opportunity to take part in the care of Mr. Scott (2) Hypertension: Status: Acute Assessment and plan: Blood pressure stable. (3) Gangrene of toe of right foot: Status: Acute Assessment and plan: Surgical consultation was requested. Recommended long-term antibiotics. (4) PVD (peripheral vascular disease): Status: Acute (5) CAD (coronary artery disease): Status: Acute Assessment and plan: Patient seen Dr. Mcdaniel. Asymptomatic. Plan of care discussed with Attending Dr. Alma Garcia MD PGY 2 Disclaimer: This note was dictated by speech recognition. Minor errors in prep room supervisor may be present due to voice recognition software. Attending Provider Attestation/Addendum Patient currently seen and examined with resident physician Dr. Garcia. Note reviewed, agree with findings and recommendations. Patient currently seen in telemetry. Continue with salt tablets. Sodium stable.
[2025-05-04 12:00] VITALS: BP 140/69; PULSE 56; PULSE 63; RESP 19; TEMP 36.4; O2SAT 100
--- NOTE | 2025-05-04 15:03 | ESPR_ITS ---
Documentation for date of: 05/04/25 Subjective Subjective Interval history: Patient evaluated Hemoglobin hematocrit 7.4 and 4.3 He is scheduled for a colonoscopy but he is not clear additional GoLytely will be given Exam Vital Signs Temp Pulse Resp BP Pulse Ox O2 Del Method O2 Flow Rate 97.6 F 63 19 140/69 H 100 Room Air 3 05/04/25 12:00 05/04/25 12:00 05/04/25 12:00 05/04/25 12:00 05/04/25 12:00 05/04/25 12:00 05/03/25 12:10 Objective Labs 05/04/25 05:12 05/04/25 05:12 Labs: Laboratory Results - last 24 hr 05/04/25 05:12 WBC 6.1 RBC 2.60 L Hgb 7.9 L Hct 22.8 L MCV 88 MCH 30.4 MCHC 34.6 RDW Std Deviation 51.4 H Plt Count 291 D Neut % (Auto) 78 Lymph % (Auto) 14 [place] % (Auto) 5 Eos % (Auto) 2 Baso % (Auto) 1 Neut # (Auto) 4.7 Lymph # (Auto) 0.9 L [place] # (Auto) 0.3 Eos # (Auto) 0.1 Baso # (Auto) 0.0 Immature Gran # (Auto) 0.03 H Absolute Nucleated RBC 0.00 Immature Gran % 1 H Nucleated RBC % 0 Sodium 129 L Potassium 3.1 L Chloride 97 L Carbon Dioxide 23.3 Anion Gap 9 BUN 6 L Creatinine 0.4 L Estim Creat Clear Calc Not Performed. eGFR > 60 BUN/Creatinine Ratio 15 Glucose 109 H Calculated Osmolality 257 L Calcium 7.3 L Corrected Calcium 8.4 L Total Bilirubin 0.5 AST 28 ALT 17 Alkaline Phosphatase 82 Total Protein 4.8 L Albumin 2.6 L Globulin 2.2 L Albumin/Globulin Ratio 1.2 Impressions Impression: Anemia blood loss hemoglobin hematocrit 7.9 and 22.0 Continue GoLytely prep Give a Fleet enema followed by a tapwater enema and continue GoLytely Assessment & Plan A&P Narrative # Anemia multifactorial probably 1 component is anemia of blood loss with a significant drop in hemoglobin hematocrit without change in BUN/creatinine Suggestions iron panel with iron saturation B12 level folate level Reticulocyte count Stool for occult blood Will schedule upper endoscopy with possible therapeutic intervention under intravenous moderate sedation Other medical problems include Hyponatremia Coronary artery status post PCI Diabetes mellitus type 2 BPH Thank you very much for the opportunity to participate in the care of this patient Time Spent With Patient Time: Total time spent is greater than 50% in coordination of care (as documented) at patient's floor/unit and/or counseling patient:
--- NOTE | 2025-05-04 15:40 | ESPR_ITS ---
Documentation for date of: 05/04/25 Subjective Subjective Interval history: Patient is seen and examined at bedside. No acute overnight events. Did not have any bowel movements after coming to the hospital. Noted to have a drop in the hemoglobin during the hospital stay for which she got blood transfusion and EGD was done which did not show any significant source of bleeding Started on GoLytely for colonoscopy. Still not noted to have any bowel movements. Will continue GoLytely prep. Will continue salt tablets once daily Exam Vital Signs Temp Pulse Resp BP Pulse Ox O2 Del Method O2 Flow Rate 97.6 F 63 19 140/69 H 100 Room Air 3 05/04/25 12:00 05/04/25 12:00 05/04/25 12:00 05/04/25 12:00 05/04/25 12:00 05/04/25 12:00 05/03/25 12:10 Narrative Exam General: Awake. HEENT: Normocephalic, atraumatic, mucous membranes moist. Heart: Regular rate and rhythm, no murmurs. Lungs: Clear to auscultation with no wheezing or crackles. Abdomen: Soft, nondistended, nontender, positive bowel sounds. ?No guarding or rebound tenderness. Neurologic: Alert and oriented x3, no gross neurological deficit, and patient able to move all 4 extremities. Extremities: No edema. Skin: No rash or ecchymoses. Objective Labs 05/07/25 05:00 05/07/25 05:00 Labs: Laboratory Results - last 24 hr 05/04/25 05:12 WBC 6.1 RBC 2.60 L Hgb 7.9 L Hct 22.8 L MCV 88 MCH 30.4 MCHC 34.6 RDW Std Deviation 51.4 H Plt Count 291 D Neut % (Auto) 78 Lymph % (Auto) 14 [place] % (Auto) 5 Eos % (Auto) 2 Baso % (Auto) 1 Neut # (Auto) 4.7 Lymph # (Auto) 0.9 L [place] # (Auto) 0.3 Eos # (Auto) 0.1 Baso # (Auto) 0.0 Immature Gran # (Auto) 0.03 H Absolute Nucleated RBC 0.00 Immature Gran % 1 H Nucleated RBC % 0 Sodium 129 L Potassium 3.1 L Chloride 97 L Carbon Dioxide 23.3 Anion Gap 9 BUN 6 L Creatinine 0.4 L Estim Creat Clear Calc Not Performed. eGFR > 60 BUN/Creatinine Ratio 15 Glucose 109 H Calculated Osmolality 257 L Calcium 7.3 L Corrected Calcium 8.4 L Total Bilirubin 0.5 AST 28 ALT 17 Alkaline Phosphatase 82 Total Protein 4.8 L Albumin 2.6 L Globulin 2.2 L Albumin/Globulin Ratio 1.2 Quality Measures Quality Measures none Advance care planning discussed with:: patient Assessment & Plan Assessment Current Active Medications: Generic Name Dose Route Start Last Admin Trade Name Freq PRN Reason Stop Dose Admin Acetaminophen 650 mg 04/30/25 16:45 Acetaminophen 325 Mg Tablet PO 05/30/25 16:44 Q6H PRN PAIN SCALE 1-3 (mild Ascorbic Acid 500 mg 05/01/25 21:00 05/04/25 09:57 Ascorbic Acid 250 Mg Tablet PO 05/31/25 20:59 500 mg BID HUMBERTO Administration Bisacodyl 5 mg 05/03/25 09:00 05/04/25 09:57 Bisacodyl 5 Mg Tabec PO 06/02/25 08:59 5 mg QDAY HUMBERTO Administration Protocol Doxycycline Hyclate 100 mg 05/01/25 21:00 05/04/25 09:57 Doxycycline 100 Mg Tablet PO 05/08/25 20:59 100 mg BID HUMBERTO Administration Heparin Sodium (Porcine) 5,000 unit 04/30/25 17:00 05/02/25 06:02 Heparin Sod Inj 5000 Unit/Ml Vial SC 05/14/25 16:59 5,000 unit On Hold: 05/02/25 07:58 Q8HR HUMBERTO Administration Ceftriaxone Sodium 2 gm/ 50 mls @ 100 mls/hr 05/01/25 09:00 05/04/25 09:58 Sodium Chloride IV 05/08/25 08:59 100 mls/hr QDAY HUMBERTO Administration Ondansetron HCl 4 mg 04/30/25 16:45 Ondansetron Inj 2 Mg/Ml Inj 2 Ml IVP 05/30/25 16:44 Q6H PRN NAUSEA OR VOMITING Protocol Sennosides 1 tab 05/03/25 09:00 05/04/25 09:57 Senna Tablet PO 06/02/25 08:59 1 tab QDAY HUMBERTO Administration Protocol Sodium Chloride 1 gm 05/01/25 09:00 05/04/25 09:58 Sodium Chloride 1 Gm Tablet PO 05/31/25 08:59 1 gm DAILY HUMBERTO Administration Zinc Gluconate 50 mg 05/01/25 15:15 05/04/25 09:58 Zinc Gluconate 50 Mg Tablet PO 05/31/25 15:14 50 mg QDAY HUMBERTO Administration Plan Patient is an 79-year-old male with a PMH of recurrent hyponatremia, hypertension, type 2 diabetes mellitus, coronary artery disease status post stents in July 2023, peripheral arterial disease, and BPH who presented on 04/30/2025 after he was told to do so when his outpatient labs showed severe hypoosmolar hyponatremia. Patient was admitted for the work-up and management of severe hypo-osmolar hyponatremia without symptoms. #Acute on chronic hyponatremia, improved #H/O SIADH/chronic hyponatremia, on salt tablets #2/2 drug non-compliance 04/30 admission sodium 118 at around 14:30 (calculated osmolality 236, euvolemic-appearing) Per , patient is released from rehab 2 weeks before the day of admission and not sure if he received salt tablets in the facility and missed some doses after coming to home Dx: -04/30 urine random electrolytes showed creatinine 41, sodium 48.2, potassium 36, chloride 74.0 Rx: -Nephrology (Dr. Marquez) consulted, appreciate recommendations -Sodium remained stable at 129, will continue to monitor -Salt tablets 1 g PO QD #?Community-acquired pneumonia #Significant smoking Hx, [id number] 04/30 CXR showed interstitial densities throughout the lungs that were possibly suggestive of pneumonia During initial exam, patient was noted to have an intermittent dry cough but he did not present with leukocytosis or fever Per prior documentation, patient has smoked an average of 1 pack/day for 50-60 years Dx: -Coccidioides IgM antibody assay ordered, showed Negative -COVID lab work-up ordered, showed Negative Rx: -Rocephin 2 g IV QD [04/30--] -Doxycycline 100mg twice daily [05/01--] -Discontinued azithromycin 500 mg IV QD [04/30-05/01] #Necrotic hallux of right foot #Osteomyelitis of right distal hallux #Hx of peripheral arterial disease #Hx of type 2 diabetes mellitus On physical exam, the big toe of patient's right toe is noted to be blackened and necrotic-appearing (no drainage) and patient is unsure when or how it became as such Likely 2/2 significant peripheral arterial disease as patient's hemoglobin A1c this admission was not that high Dx: -04/30 toe XR ordered, showed osteomyelitis -Ordered hemoglobin A1c, 6.7 Rx: -General Surgery (Dr. Quispe), consulted - recommended no surgical intervention as of now -Wound care referral -PICC line placed as of 05/02 -Rocephin 2 g IV QD [04/30--] -Doxycycline 100mg twice daily [05/01--] #?Acute blood loss anemia 05/02 Hgb 8.5->6.7, unclear etiology but suspect blood loss from somewhere s/p pRBC transfusion x 1 on 05/02 Dx: -05/02 FOBT ordered, showed ___ -05/03 upper endoscopy completed, showed Gastritis and erythema, no significant source of bleeding -Iron panel and ferritin ordered, showed iron 67, TIBC 136, iron saturation 49, unsaturated iron binding 69, and ferritin 707 (not suggestive of LOTUS) -B12 and folate ordered, showed ___ Rx: -GI consulted, appreciate recommendations -GoLytely prep and colonoscopy followed by that -Heparin 5K SC Q8HR held -Hemoglobin is stable as of now -Continue to monitor CBC, transfuse if Hgb<8 (s/p coronary stent placement) Hospital Management: Disposition: Tele Diet: Clear liquid diet GI Prophylaxis: None Bowel Prophylaxis: None DVT Prophylaxis: Heparin (HELD due to concern for acute blood loss anemia) CODE STATUS: Full Code Patient plan of care was discussed with the attending physician, Dr. Jodie Arita, PGY2 Attending Provider Attestation/Addendum I have discussed and was present for the essential components of the history, physical examination, diagnosis, and treatment plan with the resident. I agree with the patient's care as documented by the resident and amended herein by me. Harinder Feliciano DO. Although this document has been carefully reviewed, there may still be some phonetic and other typographical errors. These errors are purely grammatical due to imperfections in the software program and should not be construed in any way to compromise the substance of the patient's medical care during this visit.
[2025-05-04 16:00] VITALS: BP 123/61; PULSE 50; PULSE 80; RESP 25; TEMP 37.1; O2SAT 98
[2025-05-04] MEDS: TAMSULOSIN HCL 0.4 MG CAPSULE PO (17:41)
[2025-05-04 19:35] LABS: Folate 18.22 ng/mL (>5.38); Vitamin B12 855 pg/mL (211-911)
[2025-05-04 20:00] VITALS: BP 154/76; PULSE 60; PULSE 64; RESP 13; TEMP 36.2; O2SAT 99
[2025-05-05] VITALS (7 sets, daily range): BP systolic 123–155; BP diastolic 48–85; PULSE 55–74; RESP 12–19; TEMP 36.1–36.7; O2SAT 98–100
[2025-05-05 05:56] LABS: Basophils # (Auto) 0.0 Thou/mm3 (0.0-0.2); Basophils % (Auto) 1 % (0-2.5); Eosinophils # (Auto) 0.1 Thou/mm3 (0.0-0.5); Eosinophils % (Auto) 2 % (0-10); Hematocrit 23.5 % (41.0-53.0); Immature Granulocytes Auto 0.05 Thou/mm3 (0.00-0.00); Lymphocytes # (Auto) 0.8 Thou/mm3 (1.0-4.8); Lymphocytes % (Auto) 17 % (10-50); Mean Corpuscular HGB Conc 36.2 g/dl (31.0-37.0); Mean Corpuscular Hemoglobin 32.1 pg (25.0-35.0); Mean Corpuscular Volume 89 fL (80-100); Monocytes # (Auto) 0.4 Thou/mm3 (0.0-0.8); Monocytes % (Auto) 8 % (0-12); Neutrophils # (Auto) 3.7 Thou/mm3 (1.8-7.7); Neutrophils % (Auto) 72 % (37-80); Nucleated Red Blood Cell # 0.00 Thou/mm3 (0.00-0.00); Nucleated Red Blood Cell % 0 /100 WBC (0); Platelet Count 322 Thou/mm3 (140-440); RDW Standard Deviation 52.7 fL (35.1-43.9); Red Blood Count 2.65 Miln/mm3 (4.50-5.90); White Blood Count 5.1 Thou/mm3 (3.8-10.6)
[2025-05-05 06:03] LABS: Hemoglobin 8.5 g/dL (13.5-16.0)
[2025-05-05 06:19] LABS: Alanine Aminotransferase 22 U/L (10-49); Albumin, Serum 2.6 gm/dL (3.4-4.8); Albumin/Globulin Ratio 1.2 (1.2-2.2); Alkaline Phosphatase 78 U/L (46-116); Anion Gap 9 (7-16); Aspartate Amino Transferase 30 U/L (0-34); BUN/Creatinine Ratio 13 Ratio (12-20); Bilirubin,Total 0.5 mg/dL (0.3-1.2); Blood Urea Nitrogen < 5 mg/dL (9-23); Calcium 7.0 mg/dL (8.3-10.6); Calcium (Corrected) 8.1 mg/dL (8.5-10.1); Carbon Dioxide 23.5 mMol/L (20.0-31.0); Chloride 97 mMol/L (98-107); Creatinine (Component) 0.4 mg/dL (0.6-1.3); Globulin 2.2 gm/dL (2.3-3.5); Glucose 115 mg/dL (74-106); Osmolality,Calculated 257 (275-295); Potassium 3.3 mMol/L (3.4-5.1); Sodium 129 mMol/L (136-145); Total Protein 4.8 gm/dL (5.7-8.2); eGFR > 60 See Note
--- NOTE | 2025-05-05 08:30 | PD.RESPRO ---
Documentation for date of: 05/05/25 Subjective Subjective Interval history: Chart review done. Patient seems to be a poor historian. Mr. Scott is a 79-year-old gentleman with a history of diabetes, hypertension, coronary artery disease status post stents, peripheral vascular disease, BPH, recurrent episodes of hyponatremia (supposedly on salt tablets-although recently discontinued per chart and salt tablets were not on her home medications) presented to the emergency department sent by primary care doctor as his sodium was very low. Patient was alert and awake. He was noted to be hypovolemic hyponatremia. 1 L normal saline was given and patient continued on a normal saline IV. Renal consultation requested for hyponatremia. Patient denies any nausea, vomiting. Denies any disorientation or no episodes of seizures. Home medications included Lipitor, Plavix, docusate, finasteride, metformin, metoprolol, multivitamin, Flomax, trazodone In the emergency department a blood pressure 136/79, heart rate 89 afebrile. CBC showed hemoglobin 10. Sodium 118, osmolality 236, Pro-Yousif 0.24, renal function normal. LFTs normal. Urinalysis shows trace bacteria. Urine sodium 48. Urine tox screen negative. Chest x-ray showed no CHF. Questionable pneumonia. Was given Rocephin in the ED and normal saline. Patient currently seen in telemetry. This morning his sodium slightly better at 122. Patient also noted to have right toe necrosis-Dr. Quispe was consulted. 05/02/2025 patient currently seen in telemetry. Resting comfortably. Patient more alert and awake. For right toe necrosis Dr. Hitchcock recommended long-term antibiotics. Patient will be going for PICC line today. 05/03/2025: Patient seen and examined in telemetry this morning. Currently oriented to self only. Again no urine output noted to be charted. NA improved to 130 from 129 and osmolarity improved from 258-261. Continue sodium chloride tabs once daily, discontinue half-normal saline IV fluid. 05/04/2025: Patient seen and examined at bedside this morning. Currently only oriented to self, but does endorse right great toe pain. Again no urine output was noted to be charted, but patient's diapers were wet. Sodium currently 129 and OSM 257. Continue NaCl tabs once daily. Once primary team is ready, patient is cleared from nephrology standpoint for discharge. 05/05/2025: Patient seen and examined at bedside. Oriented to self, at baseline. No new complaints. Denies chest pain or SOB. Patient reports continued urine output, not being charted. Na 129 and continue salt tabs 1 g QD on outpatient. 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 Exam Vital Signs Temp Pulse Resp BP Pulse Ox O2 Del Method O2 Flow Rate 97.1 F 66 18 123/65 98 Room Air 3 05/05/25 08:00 05/05/25 08:00 05/05/25 08:00 05/05/25 08:00 05/05/25 08:00 05/05/25 08:00 05/03/25 12:10 Narrative Exam GENERAL APPEARANCE: Patient clinically looks euvolemic NECK: Neck supple, no JVD or bruit CARDIOVASCULAR: Heart regular, no murmurs LUNGS/CHEST: Chest clear to auscultation. No rales, rhonchi, wheezing ABDOMEN: Soft, nontender, nondistended. No masses. Normal bowel sounds. EXTREMITIES: No edema, clubbing or cyanosis. SKIN: dry gangrene in the right toe - demarcated, mildly TTP MUSCULOSKELETAL: In bed NEUROLOGICAL : Alert and awake Objective Labs 05/05/25 05:12 05/05/25 05:12 Labs: Laboratory Results - last 24 hr 05/02/25 05/05/25 05:07 05:12 WBC 5.1 RBC 2.65 L Hgb 8.5 L Hct 23.5 L MCV 89 MCH 32.1 MCHC 36.2 RDW Std Deviation 52.7 H Plt Count 322 D Neut % (Auto) 72 Lymph % (Auto) 17 [place] % (Auto) 8 Eos % (Auto) 2 Baso % (Auto) 1 Neut # (Auto) 3.7 Lymph # (Auto) 0.[address] [place] # (Auto) 0.4 Eos # (Auto) 0.1 Baso # (Auto) 0.0 Immature Gran # (Auto) 0.05 H Absolute Nucleated RBC 0.00 Immature Gran % 1 H Nucleated RBC % 0 Sodium 129 L Potassium 3.3 L Chloride 97 L Carbon Dioxide 23.5 Anion Gap 9 BUN < 5 L Creatinine 0.4 L Estim Creat Clear Calc Not Performed. eGFR > 60 BUN/Creatinine Ratio 13 Glucose 115 H Calculated Osmolality 257 L Calcium 7.0 L Corrected Calcium 8.1 L Total Bilirubin 0.5 AST 30 ALT 22 Alkaline Phosphatase 78 Total Protein 4.8 L Albumin 2.6 L Globulin 2.2 L Albumin/Globulin Ratio 1.2 Vitamin B12 855 Folate 18.22 Quality Measures Quality Measures none Advance care planning discussed with:: patient Assessment & Plan Assessment Current Active Medications: Generic Name Dose Route Start Last Admin Trade Name Freq PRN Reason Stop Dose Admin Acetaminophen 650 mg 04/30/25 16:45 Acetaminophen 325 Mg Tablet PO 05/30/25 16:44 Q6H PRN PAIN SCALE 1-3 (mild Ascorbic Acid 500 mg 05/01/25 21:00 05/04/25 21:09 Ascorbic Acid 250 Mg Tablet PO 05/31/25 20:59 500 mg BID HUMBERTO Administration Bisacodyl 5 mg 05/03/25 09:00 05/04/25 09:57 Bisacodyl 5 Mg Tabec PO 06/02/25 08:59 5 mg QDAY HUMBERTO Administration Protocol Doxycycline Hyclate 100 mg 05/01/25 21:00 05/04/25 21:09 Doxycycline 100 Mg Tablet PO 05/08/25 20:59 100 mg BID HUMBERTO Administration Finasteride 5 mg 05/05/25 09:00 Finasteride 5 Mg Tablet PO 06/04/25 08:59 QDAY HUMBERTO Heparin Sodium (Porcine) 5,000 unit 04/30/25 17:00 05/02/25 06:02 Heparin Sod Inj 5000 Unit/Ml Vial SC 05/14/25 16:59 5,000 unit On Hold: 05/02/25 07:58 Q8HR HUMBERTO Administration Ceftriaxone Sodium 2 gm/ 50 mls @ 100 mls/hr 05/01/25 09:00 05/04/25 09:58 Sodium Chloride IV 05/08/25 08:59 100 mls/hr QDAY HUMBERTO Administration Ondansetron HCl 4 mg 04/30/25 16:45 Ondansetron Inj 2 Mg/Ml Inj 2 Ml IVP 05/30/25 16:44 Q6H PRN NAUSEA OR VOMITING Protocol Sennosides 1 tab 05/03/25 09:00 05/04/25 09:57 Senna Tablet PO 06/02/25 08:59 1 tab QDAY HUMBERTO Administration Protocol Sodium Chloride 1 gm 05/01/25 09:00 05/04/25 09:58 Sodium Chloride 1 Gm Tablet PO 05/31/25 08:59 1 gm DAILY HUMBERTO Administration Tamsulosin HCl 0.4 mg 05/04/25 16:00 05/04/25 17:41 Tamsulosin Hcl 0.4 Mg Capsule PO 06/03/25 15:59 0.4 mg QDAY HUMBERTO Administration Zinc Gluconate 50 mg 05/01/25 15:15 05/04/25 09:58 Zinc Gluconate 50 Mg Tablet PO 05/31/25 15:14 50 mg QDAY HUMBERTO Administration Plan Patient is an 79-year-old male with a PMH of recurrent hyponatremia, hypertension, type 2 diabetes mellitus, coronary artery disease status post stents in July 2023, peripheral arterial disease, and BPH who presented on 04/30/2025 after he was told to do so when his outpatient labs showed severe hypoosmolar hyponatremia. Patient was admitted for the work-up and management of severe, asymptomatic hypo-osmolar hyponatremia. 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 Apparently patient was having recurrent episodes of hyponatremia and was on salt tablet which was discontinued. Will resume salt tablet. CAT scan done in December did not show any evidence of malignancy. Alert and awake. No neurological deficits noted. Spoke to primary team Plan: ? Recommend continue sodium chloride tabs 1g once daily ? Once patient is clinically stable, patient cleared for discharge from nephrology standpoint. Continue with sodium chloride tabs once daily as outpatient. ? Thank you for the opportunity to take part in the care of Mr. Scott (2) Hypertension: Status: Acute Assessment and plan: Blood pressure stable. (3) Gangrene of toe of right foot: Status: Acute Assessment and plan: Surgical consultation was requested. Recommended long-term antibiotics. (4) PVD (peripheral vascular disease): Status: Acute (5) CAD (coronary artery disease): Status: Acute Assessment and plan: Patient seen Dr. Mcdaniel. Asymptomatic. Plan of care discussed with Attending Dr. Alma Sequeira, DO Internal Medicine PGY-1 Attending Provider Attestation/Addendum Patient currently seen and examined with resident physician Dr. Sequeira. Note reviewed, agree with findings and recommendations. Patient currently seen in telemetry. Continue with salt tablets. Sodium stable. Patient going for a colonoscopy.
[2025-05-05] MEDS: POTASSIUM CHLORIDE 10% 20 MEQ/15 ML UDC 40 MEQ PO (10:33)
[2025-05-05] MEDS: cefTRIAXone 2 GM in SODIUM CHLORIDE 0.9% (Popper) 50 ML IV (10:36)
[2025-05-05] MEDS: TAMSULOSIN HCL 0.4 MG CAPSULE PO (10:37)
[2025-05-05] MEDS: SODIUM CHLORIDE 1 GM TABLET PO (10:38)
[2025-05-05] MEDS: ASCORBIC ACID 250 MG TABLET 500 MG PO ×2 (10:39→20:24)
[2025-05-05] MEDS: DOXYCYCLINE 100 MG TABLET PO ×2 (10:39→20:24)
[2025-05-05] MEDS: ZINC GLUCONATE 50 MG TABLET PO (10:40)
[2025-05-05] MEDS: FINASTERIDE 5 MG TABLET PO (10:41)
--- NOTE | 2025-05-05 12:16 | ESPR_ITS ---
<Statement entered by Rosemary Moody MD - 05/05/25 17:28> Patient was seen and examined by me personally. I have directly supervised and reviewed documentation by the team resident and agree with its findings with any exceptions or additional findings as below. Plan of care was discussed with the attending, Dr. Feliciano. Patient seen at bedside, still not having clear stools. Continues to attempt drinking the Golytely, however reports it is unpleasant to drink. Apple juice has helped it taste better. Encouraged patient to continue. Pending colonoscopy then patient will be ready for discharge. Potassium was 3.3 replaced with 40 mEq PO today. Rosemary Moody, PGY-3 Documentation for date of: 05/05/25 Subjective Subjective Interval history: No overnight events. Patient was examined at bedside; they appear A&Ox3 and in NAD. Vitals/labs today significant for BP 144/67, HR 55, sodium 129, potassium 3.3. Physical exam was non-contributory. Patient is not yet having clear stools in preparation for colonoscopy. He continues to attempt drinking the Golytely but does not seem to be making quick progress as he is still on his first jug and complains that it is unpleasant to drink. Patient just needs to complete his colonoscopy to evaluate for active sites of bleeding that can explain the hemoglobin drop on 05/02 then he will be ready for discharge as sodium has normalized on salt tablets and he is cleared from the standpoint of Nephrology. Exam Vital Signs Temp Pulse Resp BP Pulse Ox O2 Del Method O2 Flow Rate 97.1 F 66 18 123/65 98 Room Air 3 05/05/25 08:00 05/05/25 08:00 05/05/25 08:00 05/05/25 08:00 05/05/25 08:00 05/05/25 08:00 05/03/25 12:10 Narrative Exam General: Awake. HEENT: Normocephalic, atraumatic, mucous membranes moist. Heart: Regular rate and rhythm, no murmurs. Lungs: Clear to auscultation with no wheezing or crackles. Abdomen: Soft, nondistended, nontender, positive bowel sounds. ?No guarding or rebound tenderness. Neurologic: Alert and oriented x3, no gross neurological deficit, and patient able to move all 4 extremities. Extremities: No edema. Skin: No rash or ecchymoses. Objective Labs 11/26/25 05:00 05/07/25 05:00 Labs: Laboratory Results - last 24 hr 05/02/25 05/05/25 05:07 05:12 WBC 5.1 RBC 2.65 L Hgb 8.5 L Hct 23.5 L MCV 89 MCH 32.1 MCHC 36.2 RDW Std Deviation 52.7 H Plt Count 322 D Neut % (Auto) 72 Lymph % (Auto) 17 [place] % (Auto) 8 Eos % (Auto) 2 Baso % (Auto) 1 Neut # (Auto) 3.7 Lymph # (Auto) 0.8 L [place] # (Auto) 0.4 Eos # (Auto) 0.1 Baso # (Auto) 0.0 Immature Gran # (Auto) 0.05 H Absolute Nucleated RBC 0.00 Immature Gran % 1 H Nucleated RBC % 0 Sodium 129 L Potassium 3.3 L Chloride 97 L Carbon Dioxide 23.5 Anion Gap 9 BUN < 5 L Creatinine 0.4 L Estim Creat Clear Calc Not Performed. eGFR > 60 BUN/Creatinine Ratio 13 Glucose 115 H Calculated Osmolality 257 L Calcium 7.0 L Corrected Calcium 8.1 L Total Bilirubin 0.5 AST 30 ALT 22 Alkaline Phosphatase 78 Total Protein 4.8 L Albumin 2.6 L Globulin 2.2 L Albumin/Globulin Ratio 1.2 Vitamin B12 855 Folate 18.22 Misc Test Result Cancelled Quality Measures Quality Measures none Advance care planning discussed with:: patient Assessment & Plan Assessment Current Active Medications: Generic Name Dose Route Start Last Admin Trade Name Freq PRN Reason Stop Dose Admin Acetaminophen 650 mg 04/30/25 16:45 Acetaminophen 325 Mg Tablet PO 05/30/25 16:44 Q6H PRN PAIN SCALE 1-3 (mild Ascorbic Acid 500 mg 05/01/25 21:00 05/05/25 10:39 Ascorbic Acid 250 Mg Tablet PO 05/31/25 20:59 500 mg BID HUMBERTO Administration Bisacodyl 5 mg 05/03/25 09:00 05/05/25 10:39 Bisacodyl 5 Mg Tabec PO 06/02/25 08:59 5 mg QDAY HUMBERTO Administration Protocol Doxycycline Hyclate 100 mg 05/01/25 21:00 05/05/25 10:39 Doxycycline 100 Mg Tablet PO 05/08/25 20:59 100 mg BID HUMBERTO Administration Finasteride 5 mg 05/05/25 09:00 05/05/25 10:41 Finasteride 5 Mg Tablet PO 06/04/25 08:59 5 mg QDAY HUMBERTO Administration Heparin Sodium (Porcine) 5,000 unit 05/05/25 09:00 Heparin Sod Inj 5000 Unit/Ml Vial SC 05/19/25 08:59 On Hold: 05/05/25 09:00 Q12HR HUMBERTO Ceftriaxone Sodium 2 gm/ 50 mls @ 100 mls/hr 05/01/25 09:00 05/05/25 10:36 Sodium Chloride IV 05/08/25 08:59 100 mls/hr QDAY HUMBERTO Administration Ondansetron HCl 4 mg 04/30/25 16:45 Ondansetron Inj 2 Mg/Ml Inj 2 Ml IVP 05/30/25 16:44 Q6H PRN NAUSEA OR VOMITING Protocol Sennosides 1 tab 05/03/25 09:00 05/05/25 10:38 Senna Tablet PO 06/02/25 08:59 1 tab QDAY HUMBERTO Administration Protocol Sodium Chloride 1 gm 05/01/25 09:00 05/05/25 10:38 Sodium Chloride 1 Gm Tablet PO 05/31/25 08:59 1 gm DAILY HUMBERTO Administration Tamsulosin HCl 0.4 mg 05/04/25 16:00 05/05/25 10:37 Tamsulosin Hcl 0.4 Mg Capsule PO 06/03/25 15:59 0.4 mg QDAY HUMBERTO Administration Zinc Gluconate 50 mg 05/01/25 15:15 05/05/25 10:40 Zinc Gluconate 50 Mg Tablet PO 05/31/25 15:14 50 mg QDAY HUMBERTO Administration Plan Patient is an 79-year-old male with a PMH of recurrent hyponatremia, hypertension, type 2 diabetes mellitus, coronary artery disease status post stents in July 2023, peripheral arterial disease, and BPH who presented on 04/30/2025 after he was told to do so when his outpatient labs showed severe hypoosmolar hyponatremia. Patient was admitted for the work-up and management of severe hypo-osmolar hyponatremia without symptoms. #Acute on chronic hyponatremia, improved #H/O SIADH/chronic hyponatremia, on salt tablets #2/2 drug non-compliance 04/30 admission sodium 118 at around 14:30 (calculated osmolality 236, euvolemic-appearing) Per , patient is released from rehab 2 weeks before the day of admission and not sure if he received salt tablets in the facility and missed some doses after coming to home Dx: -04/30 urine random electrolytes showed creatinine 41, sodium 48.2, potassium 36, chloride 74.0 Rx: -Nephrology (Dr. Marquez) consulted, appreciate recommendations -Sodium remained stable at 129, will continue to monitor -Salt tablets 1 g PO QD #?Community-acquired pneumonia #Significant smoking Hx, 12-olar-laoov 04/30 CXR showed interstitial densities throughout the lungs that were possibly suggestive of pneumonia During initial exam, patient was noted to have an intermittent dry cough but he did not present with leukocytosis or fever Per prior documentation, patient has smoked an average of 1 pack/day for 50-60 years Dx: -Coccidioides IgM antibody assay ordered, negative -COVID lab work-up ordered, negative Rx: -Rocephin 2 g IV QD [04/30--] -Doxycycline 100mg twice daily [05/01--] -Discontinued azithromycin 500 mg IV QD [04/30-05/01] #Necrotic hallux of right foot #Osteomyelitis of right distal hallux #Hx of peripheral arterial disease #Hx of type 2 diabetes mellitus On physical exam, the big toe of patient's right toe is noted to be blackened and necrotic-appearing (no drainage) and patient is unsure when or how it became as such Likely 2/2 significant peripheral arterial disease as patient's hemoglobin A1c this admission was not that high Dx: -04/30 toe XR ordered, showed osteomyelitis -Ordered hemoglobin A1c, 6.7 Rx: -General Surgery (Dr. Quispe), consulted - recommended no surgical intervention as of now -Wound care referral -PICC line placed as of 05/02 -Rocephin 2 g IV QD [04/30--] -Doxycycline 100mg twice daily [05/01--] #?Acute blood loss anemia 05/02 Hgb 8.5->6.7, unclear etiology but suspect blood loss from somewhere s/p pRBC transfusion x 1 on 05/02 Dx: -05/03 upper endoscopy completed, showed gastritis and erythema, no significant source of bleeding -05/06 colonoscopy completed, showed ___ -Iron panel and ferritin ordered, showed iron 67, TIBC 136, iron saturation 49, unsaturated iron binding 69, and ferritin 707 (not suggestive of LOTUS) -B12 and folate ordered, WNL Rx: -GI consulted, appreciate recommendations -GoLytely prep and colonoscopy followed by that -Heparin 5K SC Q8HR held -Hemoglobin is stable as of now -Continue to monitor CBC, transfuse if Hgb<8 (s/p coronary stent placement) Hospital Management: Disposition: Tele Diet: Clear liquid diet GI Prophylaxis: None Bowel Prophylaxis: None DVT Prophylaxis: Heparin (HELD due to concern for acute blood loss anemia) CODE STATUS: Full Code Patient plan of care was discussed with the attending physician Dr. Feliciano and senior resident Dr. Heidy Cristina DO PGY-1 Attending Provider Attestation/Addendum I have discussed and was present for the essential components of the history, physical examination, diagnosis, and treatment plan with the resident. I agree with the patient's care as documented by the resident and amended herein by me. Harinder Feliciano DO. Although this document has been carefully reviewed, there may still be some phonetic and other typographical errors. These errors are purely grammatical due to imperfections in the software program and should not be construed in any way to compromise the substance of the patient's medical care during this visit.
[2025-05-05 13:22] LABS: Vitamin D 25 Hydroxy Total 47.3 ng/mL (7.3-40.2)
--- NOTE | 2025-05-05 14:47 | PC.SS ---
Rounding Note: Colonoscopy remains pending.
--- NOTE | 2025-05-05 18:02 | PD.IMPROG ---
Documentation for date of: 05/05/25 Subjective Subjective Interval history: Patient evaluated Hemoglobin hematocrit 8.3 and 23.5 Exam Vital Signs Temp Pulse Resp BP Pulse Ox O2 Del Method O2 Flow Rate 98.0 F 64 18 131/76 H 100 Room Air 3 05/05/25 12:00 05/05/25 16:00 05/05/25 12:00 05/05/25 12:00 05/05/25 12:00 05/05/25 12:00 05/03/25 12:10 Objective Labs 05/05/25 05:12 05/05/25 05:12 Labs: Laboratory Results - last 24 hr 05/02/25 05/05/25 05:07 05:12 WBC 5.1 RBC 2.65 L Hgb 8.5 L Hct 23.5 L MCV 89 MCH 32.1 MCHC 36.2 RDW Std Deviation 52.7 H Plt Count 322 D Neut % (Auto) 72 Lymph % (Auto) 17 [place] % (Auto) 8 Eos % (Auto) 2 Baso % (Auto) 1 Neut # (Auto) 3.7 Lymph # (Auto) 0.[address] [place] # (Auto) 0.4 Eos # (Auto) 0.1 Baso # (Auto) 0.0 Immature Gran # (Auto) 0.05 H Absolute Nucleated RBC 0.00 Immature Gran % 1 H Nucleated RBC % 0 Sodium 129 L Potassium 3.3 L Chloride 97 L Carbon Dioxide 23.5 Anion Gap 9 BUN < 5 L Creatinine 0.4 L Estim Creat Clear Calc Not Performed. eGFR > 60 BUN/Creatinine Ratio 13 Glucose 115 H Calculated Osmolality 257 L Calcium 7.0 L Corrected Calcium 8.1 L Total Bilirubin 0.5 AST 30 ALT 22 Alkaline Phosphatase 78 Total Protein 4.8 L Albumin 2.6 L Globulin 2.2 L Albumin/Globulin Ratio 1.2 Vitamin B12 855 25-OH Vitamin D Total 47.3 H Folate 18.22 Misc Test Result Cancelled Impressions Impression: Anemia blood loss Continue GoLytely prep Colonoscopy once patient is clear Assessment & Plan A&P Narrative # Anemia multifactorial probably 1 component is anemia of blood loss with a significant drop in hemoglobin hematocrit without change in BUN/creatinine Suggestions iron panel with iron saturation B12 level folate level Reticulocyte count Stool for occult blood Will schedule upper endoscopy with possible therapeutic intervention under intravenous moderate sedation Other medical problems include Hyponatremia Coronary artery status post PCI Diabetes mellitus type 2 BPH Thank you very much for the opportunity to participate in the care of this patient Time Spent With Patient Time: Total time spent is greater than 50% in coordination of care (as documented) at patient's floor/unit and/or counseling patient:
[2025-05-05] MEDS: NA SU/NAHCO3/KC/PEG (Golytely) 4,000 ML BTL 4000 ML PO (19:31)
[2025-05-06] VITALS (7 sets, daily range): BP systolic 123–141; BP diastolic 64–85; PULSE 60–83; RESP 12–18; TEMP 36.1–36.9; O2SAT 97–100
[2025-05-06 05:36] LABS: Basophils # (Auto) 0.0 Thou/mm3 (0.0-0.2); Basophils % (Auto) 1 % (0-2.5); Eosinophils # (Auto) 0.1 Thou/mm3 (0.0-0.5); Eosinophils % (Auto) 3 % (0-10); Hematocrit 23.9 % (41.0-53.0); Immature Granulocytes Auto 0.05 Thou/mm3 (0.00-0.00); Lymphocytes # (Auto) 0.9 Thou/mm3 (1.0-4.8); Lymphocytes % (Auto) 16 % (10-50); Mean Corpuscular HGB Conc 35.1 g/dl (31.0-37.0); Mean Corpuscular Hemoglobin 31.6 pg (25.0-35.0); Mean Corpuscular Volume 90 fL (80-100); Monocytes # (Auto) 0.5 Thou/mm3 (0.0-0.8); Monocytes % (Auto) 8 % (0-12); Neutrophils # (Auto) 4.1 Thou/mm3 (1.8-7.7); Neutrophils % (Auto) 72 % (37-80); Nucleated Red Blood Cell # 0.00 Thou/mm3 (0.00-0.00); Nucleated Red Blood Cell % 0 /100 WBC (0); Platelet Count 318 Thou/mm3 (140-440); RDW Standard Deviation 52.0 fL (35.1-43.9); Red Blood Count 2.66 Miln/mm3 (4.50-5.90); White Blood Count 5.7 Thou/mm3 (3.8-10.6)
[2025-05-06 06:24] LABS: Alanine Aminotransferase 25 U/L (10-49); Albumin, Serum 2.6 gm/dL (3.4-4.8); Albumin/Globulin Ratio 1.2 (1.2-2.2); Anion Gap 9 (7-16); Aspartate Amino Transferase 29 U/L (0-34); BUN/Creatinine Ratio 13 Ratio (12-20); Bilirubin,Total 0.5 mg/dL (0.3-1.2); Blood Urea Nitrogen < 5 mg/dL (9-23); Calcium 7.3 mg/dL (8.3-10.6); Calcium (Corrected) 8.4 mg/dL (8.5-10.1); Carbon Dioxide 23.7 mMol/L (20.0-31.0); Chloride 96 mMol/L (98-107); Creatinine (Component) 0.4 mg/dL (0.6-1.3); Globulin 2.1 gm/dL (2.3-3.5); Glucose 100 mg/dL (74-106); Osmolality,Calculated 256 (275-295); Potassium 3.5 mMol/L (3.4-5.1); Sodium 129 mMol/L (136-145); Total Protein 4.7 gm/dL (5.7-8.2); eGFR > 60 See Note
[2025-05-06 06:38] LABS: Osmolality, Urine* 341 mOsm/kg (50-1200)
[2025-05-06 06:40] LABS: Hemoglobin 8.4 g/dL (13.5-16.0)
[2025-05-06 06:54] LABS: Alkaline Phosphatase 79 U/L (46-116)
--- NOTE | 2025-05-06 08:56 | PD.RESPRO ---
Documentation for date of: 05/06/25 Subjective Subjective Interval history: Mr. Scott is a 79-year-old gentleman with a history of diabetes, hypertension, coronary artery disease status post stents, peripheral vascular disease, BPH, recurrent episodes of hyponatremia (supposedly on salt tablets-although recently discontinued per chart and salt tablets were not on her home medications) presented to the emergency department sent by primary care doctor as his sodium was very low. Patient was alert and awake. He was noted to be hypovolemic hyponatremia. 1 L normal saline was given and patient continued on a normal saline IV. Renal consultation requested for hyponatremia. Patient denies any nausea, vomiting. Denies any disorientation or no episodes of seizures. Home medications included Lipitor, Plavix, docusate, finasteride, metformin, metoprolol, multivitamin, Flomax, trazodone In the emergency department a blood pressure 136/79, heart rate 89 afebrile. CBC showed hemoglobin 10. Sodium 118, osmolality 236, Pro-Yousif 0.24, renal function normal. LFTs normal. Urinalysis shows trace bacteria. Urine sodium 48. Urine tox screen negative. Chest x-ray showed no CHF. Questionable pneumonia. Was given Rocephin in the ED and normal saline. Patient currently seen in telemetry. This morning his sodium slightly better at 122. Patient also noted to have right toe necrosis-Dr. Quispe was consulted. 05/02/2025 patient currently seen in telemetry. Resting comfortably. Patient more alert and awake. For right toe necrosis Dr. Hitchcock recommended long-term antibiotics. Patient will be going for PICC line today. 05/03/2025: Patient seen and examined in telemetry this morning. Currently oriented to self only. Again no urine output noted to be charted. NA improved to 130 from 129 and osmolarity improved from 258-261. Continue sodium chloride tabs once daily, discontinue half-normal saline IV fluid. 05/04/2025: Patient seen and examined at bedside this morning. Currently only oriented to self, but does endorse right great toe pain. Again no urine output was noted to be charted, but patient's diapers were wet. Sodium currently 129 and OSM 257. Continue NaCl tabs once daily. Once primary team is ready, patient is cleared from nephrology standpoint for discharge. 05/05/2025: Patient seen and examined at bedside. Oriented to self, at baseline. No new complaints. Denies chest pain or SOB. Patient reports continued urine output, not being charted. Na 129 and continue salt tabs 1 g QD on outpatient. Patient is unable to recall how many salt tablets was previously taking before internal audit consultant discontinued. 05/06/2025: Patient seen and examined at bedside. Confused at baseline. Denies chest pain or SOB. Na 129, continue salt tabs 1 g QD. Nephrology will sign off as patient sodium is stable. Exam Vital Signs Temp Pulse Resp BP Pulse Ox O2 Del Method O2 Flow Rate 97.5 F 60 18 140/70 H 98 Room Air 3 05/06/25 04:00 05/06/25 07:33 05/06/25 04:00 05/06/25 04:00 05/06/25 04:00 05/05/25 16:00 05/03/25 12:10 Narrative Exam GENERAL APPEARANCE: Alert, patient clinically looks euvolemic NECK: Neck supple, no JVD or bruit CARDIOVASCULAR: Heart regular, no murmurs LUNGS/CHEST: Chest clear to auscultation. No rales, rhonchi, wheezing ABDOMEN: Soft, nontender, nondistended. No masses. Normal bowel sounds. EXTREMITIES: No edema, clubbing or cyanosis. SKIN: dry gangrene in the right toe - demarcated, mildly TTP MUSCULOSKELETAL: In bed NEUROLOGICAL : Alert and awake Objective Labs 05/11/25 09:38 05/11/25 09:38 Labs: Laboratory Results - last 24 hr 04/30/25 05/02/25 05/05/25 16:40 05:07 05:12 WBC RBC Hgb Hct MCV MCH MCHC RDW Std Deviation Plt Count Neut % (Auto) Lymph % (Auto) [place] % (Auto) Eos % (Auto) Baso % (Auto) Neut # (Auto) Lymph # (Auto) [place] # (Auto) Eos # (Auto) Baso # (Auto) Immature Gran # (Auto) Absolute Nucleated RBC Immature Gran % Nucleated RBC % Sodium Potassium Chloride Carbon Dioxide Anion Gap BUN Creatinine Estim Creat Clear Calc eGFR BUN/Creatinine Ratio Glucose Calculated Osmolality Calcium Corrected Calcium Total Bilirubin AST ALT Alkaline Phosphatase Total Protein Albumin Globulin Albumin/Globulin Ratio 25-OH Vitamin D Total 47.3 H Urine Osmolality 341 Misc Test Result Cancelled 05/06/25 04:34 WBC 5.7 RBC 2.66 L Hgb 8.4 L Hct 23.9 L MCV 90 MCH 31.6 MCHC 35.1 RDW Std Deviation 52.0 H Plt Count 318 Neut % (Auto) 72 Lymph % (Auto) 16 [place] % (Auto) 8 Eos % (Auto) 3 Baso % (Auto) 1 Neut # (Auto) 4.1 Lymph # (Auto) 0.9 L [place] # (Auto) 0.5 Eos # (Auto) 0.1 Baso # (Auto) 0.0 Immature Gran # (Auto) 0.05 H Absolute Nucleated RBC 0.00 Immature Gran % 1 H Nucleated RBC % 0 Sodium 129 L Potassium 3.5 Chloride 96 L Carbon Dioxide 23.7 Anion Gap 9 BUN < 5 L Creatinine 0.4 L Estim Creat Clear Calc Not Performed. eGFR > 60 BUN/Creatinine Ratio 13 Glucose 100 Calculated Osmolality 256 L Calcium 7.3 L Corrected Calcium 8.4 L Total Bilirubin 0.5 AST 29 ALT 25 Alkaline Phosphatase 79 Total Protein 4.7 L Albumin 2.6 L Globulin 2.1 L Albumin/Globulin Ratio 1.2 25-OH Vitamin D Total Urine Osmolality Misc Test Result Quality Measures Quality Measures none Advance care planning discussed with:: patient Assessment & Plan Assessment Current Active Medications: Generic Name Dose Route Start Last Admin Trade Name Freq PRN Reason Stop Dose Admin Acetaminophen 650 mg 04/30/25 16:45 Acetaminophen 325 Mg Tablet PO 05/30/25 16:44 Q6H PRN PAIN SCALE 1-3 (mild Ascorbic Acid 500 mg 05/01/25 21:00 05/05/25 20:24 Ascorbic Acid 250 Mg Tablet PO 05/31/25 20:59 500 mg BID HUMBERTO Administration Bisacodyl 5 mg 05/03/25 09:00 05/05/25 10:39 Bisacodyl 5 Mg Tabec PO 06/02/25 08:59 5 mg QDAY HUMBERTO Administration Protocol Doxycycline Hyclate 100 mg 05/01/25 21:00 05/05/25 20:24 Doxycycline 100 Mg Tablet PO 05/08/25 20:59 100 mg BID HUMBERTO Administration Finasteride 5 mg 05/05/25 09:00 05/05/25 10:41 Finasteride 5 Mg Tablet PO 06/04/25 08:59 5 mg QDAY HUMBERTO Administration Heparin Sodium (Porcine) 5,000 unit 05/05/25 09:00 Heparin Sod Inj 5000 Unit/Ml Vial SC 05/19/25 08:59 On Hold: 05/05/25 09:00 Q12HR HUMBERTO Ceftriaxone Sodium 2 gm/ 50 mls @ 100 mls/hr 05/01/25 09:00 05/05/25 10:36 Sodium Chloride IV 05/08/25 08:59 100 mls/hr QDAY HUMBERTO Administration Ondansetron HCl 4 mg 04/30/25 16:45 Ondansetron Inj 2 Mg/Ml Inj 2 Ml IVP 05/30/25 16:44 Q6H PRN NAUSEA OR VOMITING Protocol Sennosides 1 tab 05/03/25 09:00 05/05/25 10:38 Senna Tablet PO 06/02/25 08:59 1 tab QDAY HUMBERTO Administration Protocol Sodium Chloride 1 gm 05/01/25 09:00 05/05/25 10:38 Sodium Chloride 1 Gm Tablet PO 05/31/25 08:59 1 gm DAILY HUMBERTO Administration Tamsulosin HCl 0.4 mg 05/04/25 16:00 05/05/25 10:37 Tamsulosin Hcl 0.4 Mg Capsule PO 06/03/25 15:59 0.4 mg QDAY HUMBERTO Administration Zinc Gluconate 50 mg 05/01/25 15:15 05/05/25 10:40 Zinc Gluconate 50 Mg Tablet PO 05/31/25 15:14 50 mg QDAY HUMBERTO Administration Plan Patient is an 79-year-old male with a PMH of recurrent hyponatremia, hypertension, type 2 diabetes mellitus, coronary artery disease status post stents in July 2023, peripheral arterial disease, and BPH who presented on 04/30/2025 after he was told to do so when his outpatient labs showed severe hypoosmolar hyponatremia. Patient was admitted for the work-up and management of severe, asymptomatic hypo-osmolar hyponatremia. 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 Apparently patient was having recurrent episodes of hyponatremia and was on salt tablet which was discontinued. Will resume salt tablet. CAT scan done in December did not show any evidence of malignancy. Alert and awake. No neurological deficits noted. Spoke to primary team Plan: ? Recommend continue sodium chloride tabs 1g once daily ? Once patient is clinically stable, patient cleared for discharge from nephrology standpoint. Continue with sodium chloride tabs once daily as outpatient. ? Thank you for the opportunity to take part in the care of Mr. Scott - Nephrology will sign off (2) Hypertension: Status: Acute Assessment and plan: Blood pressure stable. (3) Gangrene of toe of right foot: Status: Acute Assessment and plan: Surgical consultation was requested. Recommended long-term antibiotics. (4) PVD (peripheral vascular disease): Status: Acute (5) CAD (coronary artery disease): Status: Acute Assessment and plan: Patient seen Dr. Mcdaniel. Asymptomatic. Plan of care discussed with Attending Dr. Alma Sequeira, DO Internal Medicine PGY-1 Attending Provider Attestation/Addendum Patient currently seen and examined with resident physician Dr. Sequeira. Note reviewed, agree with findings and recommendations. Patient currently seen in telemetry. Continue with salt tablets. Sodium stable.
[2025-05-06] MEDS: cefTRIAXone 2 GM in SODIUM CHLORIDE 0.9% (Popper) 50 ML IV (09:45)
[2025-05-06] MEDS: TAMSULOSIN HCL 0.4 MG CAPSULE PO (09:46)
[2025-05-06] MEDS: SODIUM CHLORIDE 1 GM TABLET PO (09:46)
[2025-05-06] MEDS: FINASTERIDE 5 MG TABLET PO (09:46)
[2025-05-06] MEDS: ZINC GLUCONATE 50 MG TABLET PO (09:46)
[2025-05-06] MEDS: ASCORBIC ACID 250 MG TABLET 500 MG PO ×2 (09:46→20:56)
[2025-05-06] MEDS: DOXYCYCLINE 100 MG TABLET PO ×2 (09:47→20:56)
--- NOTE | 2025-05-06 11:20 | ESPR_ITS ---
<Statement entered by Rosemary Moody MD - 05/06/25 15:50> Patient was seen and examined by me personally. I have directly supervised and reviewed documentation by the team resident and agree with its findings with any exceptions or additional findings as below. Plan of care was discussed with the attending, Dr. Mota. Patient seen at bedside, alert and interactive. He is still not having clear bowel movements according to nursing and overnight shift. Pending colonoscopy. Patient expresses distaste of the Golytely prep, tries to mix with apple juice but still reports it is unpalatable. He is not even through 1 bottle of Golytely however this has been the 3rd day. Will insert NG tube and start Golytely at a rate of 250 ml/hr, may titrate by 25 ml/hr up to a rate of 300 ml/hr until patient's bowel movements are clear. Rosemary Moody, PGY-3 Documentation for date of: 05/06/25 Subjective Subjective Interval history: No overnight events. Patient was examined at bedside; they appear A&Ox2 and in NAD. Vitals/labs today significant for sodium 129 but otherwise WNL. 05/05 25- hydroxy vitamin D level came back high at 47.3. Physical exam was non- contributory. Patient is pending colonoscopy but is reportedly still not having clear bowel movements; he continues to progress through his GoLytely prep incredibly slowly (still on 1st jug on 3rd day) despite attempts to make it more palatable by mixing it with apple juice. Due to the above, patient will have an NG tube placed and have GoLytely administered through it at a rate of 250 cc/hr with plans to titrate it up by 25 cc/hr to a goal rate of 300 cc/hr until his bowel movements are clear. After patient undergoes colonoscopy, he is anticipated to be medically cleared to be discharged to SNF. Exam Vital Signs Temp Pulse Resp BP Pulse Ox O2 Del Method O2 Flow Rate 97.6 F 63 18 130/64 98 Room Air 3 05/06/25 08:00 05/06/25 08:00 05/06/25 08:00 05/06/25 08:00 05/06/25 08:00 05/06/25 08:00 05/03/25 12:10 Narrative Exam General: Awake. HEENT: Normocephalic, atraumatic, mucous membranes moist. Heart: Regular rate and rhythm, no murmurs. Lungs: Clear to auscultation with no wheezing or crackles. Abdomen: Soft, nondistended, nontender, positive bowel sounds. ?No guarding or rebound tenderness. Neurologic: Alert and oriented x3, no gross neurological deficit, and patient able to move all 4 extremities. Extremities: No edema. Skin: No rash or ecchymoses. Objective Labs 05/07/25 05:00 05/07/25 05:00 Labs: Laboratory Results - last 24 hr 04/30/25 05/05/25 05/06/25 16:40 05:12 04:34 WBC 5.7 RBC 2.66 L Hgb 8.4 L Hct 23.9 L MCV 90 MCH 31.6 MCHC 35.1 RDW Std Deviation 52.0 H Plt Count 318 Neut % (Auto) 72 Lymph % (Auto) 16 [place] % (Auto) 8 Eos % (Auto) 3 Baso % (Auto) 1 Neut # (Auto) 4.1 Lymph # (Auto) 0.9 L [place] # (Auto) 0.5 Eos # (Auto) 0.1 Baso # (Auto) 0.0 Immature Gran # (Auto) 0.05 H Absolute Nucleated RBC 0.00 Immature Gran % 1 H Nucleated RBC % 0 Sodium 129 L Potassium 3.5 Chloride 96 L Carbon Dioxide 23.7 Anion Gap 9 BUN < 5 L Creatinine 0.4 L Estim Creat Clear Calc Not Performed. eGFR > 60 BUN/Creatinine Ratio 13 Glucose 100 Calculated Osmolality 256 L Calcium 7.3 L Corrected Calcium 8.4 L Total Bilirubin 0.5 AST 29 ALT 25 Alkaline Phosphatase 79 Total Protein 4.7 L Albumin 2.6 L Globulin 2.1 L Albumin/Globulin Ratio 1.2 25-OH Vitamin D Total 47.3 H Urine Osmolality 341 Quality Measures Quality Measures none Advance care planning discussed with:: patient Assessment & Plan Assessment Current Active Medications: Generic Name Dose Route Start Last Admin Trade Name Freq PRN Reason Stop Dose Admin Acetaminophen 650 mg 04/30/25 16:45 Acetaminophen 325 Mg Tablet PO 05/30/25 16:44 Q6H PRN PAIN SCALE 1-3 (mild Ascorbic Acid 500 mg 05/01/25 21:00 05/06/25 09:46 Ascorbic Acid 250 Mg Tablet PO 05/31/25 20:59 500 mg BID HUMBERTO Administration Bisacodyl 5 mg 05/03/25 09:00 05/06/25 09:46 Bisacodyl 5 Mg Tabec PO 06/02/25 08:59 5 mg QDAY HUMBERTO Administration Protocol Doxycycline Hyclate 100 mg 05/01/25 21:00 05/06/25 09:47 Doxycycline 100 Mg Tablet PO 05/08/25 20:59 100 mg BID HUMBERTO Administration Finasteride 5 mg 05/05/25 09:00 05/06/25 09:46 Finasteride 5 Mg Tablet PO 06/04/25 08:59 5 mg QDAY HUMBERTO Administration Heparin Sodium (Porcine) 5,000 unit 05/05/25 09:00 Heparin Sod Inj 5000 Unit/Ml Vial SC 05/19/25 08:59 On Hold: 05/05/25 09:00 Q12HR HUMBERTO Ceftriaxone Sodium 2 gm/ 50 mls @ 100 mls/hr 05/01/25 09:00 05/06/25 09:45 Sodium Chloride IV 05/08/25 08:59 100 mls/hr QDAY HUMBERTO Administration Ondansetron HCl 4 mg 04/30/25 16:45 Ondansetron Inj 2 Mg/Ml Inj 2 Ml IVP 05/30/25 16:44 Q6H PRN NAUSEA OR VOMITING Protocol Sennosides 1 tab 05/03/25 09:00 05/06/25 09:46 Senna Tablet PO 06/02/25 08:59 1 tab QDAY HUMBERTO Administration Protocol Sodium Chloride 1 gm 05/01/25 09:00 05/06/25 09:46 Sodium Chloride 1 Gm Tablet PO 05/31/25 08:59 1 gm DAILY HUMBERTO Administration Tamsulosin HCl 0.4 mg 05/04/25 16:00 05/06/25 09:46 Tamsulosin Hcl 0.4 Mg Capsule PO 06/03/25 15:59 0.4 mg QDAY HUMBERTO Administration Zinc Gluconate 50 mg 05/01/25 15:15 05/06/25 09:46 Zinc Gluconate 50 Mg Tablet PO 05/31/25 15:14 50 mg QDAY HUMBERTO Administration Plan Patient is an 79-year-old male with a PMH of recurrent hyponatremia, hypertension, type 2 diabetes mellitus, coronary artery disease status post stents in July 2023, peripheral arterial disease, and BPH who presented on 04/30/2025 after he was told to do so when his outpatient labs showed severe hypoosmolar hyponatremia. Patient was admitted for the work-up and management of severe hypo-osmolar hyponatremia without symptoms. #Acute on chronic hyponatremia, improved #H/O SIADH/chronic hyponatremia, on salt tablets #2/2 drug non-compliance 04/30 admission sodium 118 at around 14:30 (calculated osmolality 236, euvolemic-appearing) Per , patient is released from rehab 2 weeks before the day of admission and not sure if he received salt tablets in the facility and missed some doses after coming to home Dx: -04/30 urine random electrolytes showed creatinine 41, sodium 48.2, potassium 36, chloride 74.0 Rx: -Nephrology (Dr. Marquez) consulted, appreciate recommendations -Sodium remained stable at 129, will continue to monitor -Salt tablets 1 g PO QD #?Community-acquired pneumonia #Significant smoking Hx, [id number] 04/30 CXR showed interstitial densities throughout the lungs that were possibly suggestive of pneumonia During initial exam, patient was noted to have an intermittent dry cough but he did not present with leukocytosis or fever Per prior documentation, patient has smoked an average of 1 pack/day for 50-60 years Dx: -Coccidioides IgM antibody assay ordered, negative -COVID lab work-up ordered, negative Rx: -Rocephin 2 g IV QD [04/30--] -Doxycycline 100mg twice daily [05/01--] -Discontinued azithromycin 500 mg IV QD [04/30-05/01] #Necrotic hallux of right foot #Osteomyelitis of right distal hallux #Hx of peripheral arterial disease #Hx of type 2 diabetes mellitus On physical exam, the big toe of patient's right toe is noted to be blackened and necrotic-appearing (no drainage) and patient is unsure when or how it became as such Likely 2/2 significant peripheral arterial disease as patient's hemoglobin A1c this admission was not that high Dx: -04/30 toe XR ordered, showed osteomyelitis -Ordered hemoglobin A1c, 6.7 Rx: -General Surgery (Dr. Quispe), consulted - recommended no surgical intervention as of now -Wound care referral -PICC line placed as of 05/02 -Rocephin 2 g IV QD [04/30--] -Doxycycline 100mg twice daily [05/01--] #?Acute blood loss anemia 05/02 Hgb 8.5->6.7, unclear etiology but suspect blood loss from somewhere s/p pRBC transfusion x 1 on 05/02 Dx: -05/03 upper endoscopy completed, showed gastritis and erythema, no significant source of bleeding -Pending colonoscopy, showed ___ -Iron panel and ferritin ordered, showed iron 67, TIBC 136, iron saturation 49, unsaturated iron binding 69, and ferritin 707 (not suggestive of LOTUS) -B12 and folate ordered, WNL Rx: -GI consulted, appreciate recommendations -GoLytely prep and colonoscopy followed by that -Heparin 5K SC Q8HR held -Hemoglobin is stable as of now -Continue to monitor CBC, transfuse if Hgb<8 (s/p coronary stent placement) RRx: -Due to patient's non-compliance with adequate bowel prep (on 1st jug after 3rd day), he will have an NG tube placed and have GoLytely administered through it at a rate of 250 cc/hr with plans to titrate it up by 25 cc/hr to a goal rate of 300 cc/hr until his bowel movements are clear. -Head of bed elevation at 45 degrees ordered Hospital Management: Disposition: Tele Diet: Clear liquid diet GI Prophylaxis: None Bowel Prophylaxis: None DVT Prophylaxis: Heparin (HELD due to concern for acute blood loss anemia) CODE STATUS: Full Code Patient plan of care was discussed with the attending physician Dr. Mota and senior resident Dr. Heidy Cristina, DO PGY-1 Attending Provider Attestation/Addendum I have examined the patient, reviewed labs and imaging findings, discussed the case with the resident(s), and reviewed entered orders. I agree with the plan of care as outlined in this note. Dr. Nakul MD
[2025-05-06] MEDS: NA SU/NAHCO3/KC/PEG (Golytely) 4,000 ML BTL 4000 ML PO (16:15)
--- NOTE | 2025-05-06 17:52 | ESPR_ITS ---
Documentation for date of: 05/06/25 Subjective Subjective Interval history: Patient evaluated Hemoglobin hematocrit 8.4 and 23.9 Exam Vital Signs Temp Pulse Resp BP Pulse Ox O2 Del Method O2 Flow Rate 98.0 F 62 18 134/66 H 100 Room Air 3 05/06/25 16:00 05/06/25 16:00 05/06/25 16:00 05/06/25 16:00 05/06/25 16:00 05/06/25 16:00 05/03/25 12:10 Objective Labs 05/06/25 04:34 05/06/25 04:34 Labs: Laboratory Results - last 24 hr 04/30/25 05/06/25 16:40 04:34 WBC 5.7 RBC 2.66 L Hgb 8.4 L Hct 23.9 L MCV 90 MCH 31.6 MCHC 35.1 RDW Std Deviation 52.0 H Plt Count 318 Neut % (Auto) 72 Lymph % (Auto) 16 [place] % (Auto) 8 Eos % (Auto) 3 Baso % (Auto) 1 Neut # (Auto) 4.1 Lymph # (Auto) 0.9 L [place] # (Auto) 0.5 Eos # (Auto) 0.1 Baso # (Auto) 0.0 Immature Gran # (Auto) 0.05 H Absolute Nucleated RBC 0.00 Immature Gran % 1 H Nucleated RBC % 0 Sodium 129 L Potassium 3.5 Chloride 96 L Carbon Dioxide 23.7 Anion Gap 9 BUN < 5 L Creatinine 0.4 L Estim Creat Clear Calc Not Performed. eGFR > 60 BUN/Creatinine Ratio 13 Glucose 100 Calculated Osmolality 256 L Calcium 7.3 L Corrected Calcium 8.4 L Total Bilirubin 0.5 AST 29 ALT 25 Alkaline Phosphatase 79 Total Protein 4.7 L Albumin 2.6 L Globulin 2.1 L Albumin/Globulin Ratio 1.2 Urine Osmolality 341 Impressions Impression: Anemia blood loss GoLytely prep in progress note via the NGT as patient is uncooperative lady not drinking Discussed the case with the internal medicine team GoLytely via NGT at 400 cc an hour Possible colonoscopy a.m. Assessment & Plan A&P Narrative # Anemia multifactorial probably 1 component is anemia of blood loss with a significant drop in hemoglobin hematocrit without change in BUN/creatinine Suggestions iron panel with iron saturation B12 level folate level Reticulocyte count Stool for occult blood Will schedule upper endoscopy with possible therapeutic intervention under intravenous moderate sedation Other medical problems include Hyponatremia Coronary artery status post PCI Diabetes mellitus type 2 BPH Thank you very much for the opportunity to participate in the care of this patient Time Spent With Patient Time: Total time spent is greater than 50% in coordination of care (as documented) at patient's floor/unit and/or counseling patient:
[2025-05-07] VITALS (21 sets, daily range): BP systolic 120–156; BP diastolic 67–90; PULSE 61–91; RESP 12–24; TEMP 36–36.6; O2SAT 94–100
[2025-05-07 05:40] LABS: Basophils # (Auto) 0.0 Thou/mm3 (0.0-0.2); Basophils % (Auto) 1 % (0-2.5); Eosinophils # (Auto) 0.1 Thou/mm3 (0.0-0.5); Eosinophils % (Auto) 2 % (0-10); Hematocrit 24.4 % (41.0-53.0); Immature Granulocytes Auto 0.05 Thou/mm3 (0.00-0.00); Lymphocytes # (Auto) 0.7 Thou/mm3 (1.0-4.8); Lymphocytes % (Auto) 11 % (10-50); Mean Corpuscular HGB Conc 35.2 g/dl (31.0-37.0); Mean Corpuscular Hemoglobin 31.4 pg (25.0-35.0); Mean Corpuscular Volume 89 fL (80-100); Monocytes # (Auto) 0.5 Thou/mm3 (0.0-0.8); Monocytes % (Auto) 8 % (0-12); Neutrophils # (Auto) 5.0 Thou/mm3 (1.8-7.7); Neutrophils % (Auto) 77 % (37-80); Nucleated Red Blood Cell # 0.00 Thou/mm3 (0.00-0.00); Nucleated Red Blood Cell % 0 /100 WBC (0); Platelet Count 312 Thou/mm3 (140-440); RDW Standard Deviation 51.9 fL (35.1-43.9); Red Blood Count 2.74 Miln/mm3 (4.50-5.90); White Blood Count 6.4 Thou/mm3 (3.8-10.6)
[2025-05-07 05:44] LABS: Hemoglobin 8.6 g/dL (13.5-16.0)
[2025-05-07 06:15] LABS: Alanine Aminotransferase 24 U/L (10-49); Albumin, Serum 2.6 gm/dL (3.4-4.8); Albumin/Globulin Ratio 1.1 (1.2-2.2); Alkaline Phosphatase 83 U/L (46-116); Anion Gap 8 (7-16); Aspartate Amino Transferase 28 U/L (0-34); BUN/Creatinine Ratio 13 Ratio (12-20); Bilirubin,Total 0.5 mg/dL (0.3-1.2); Blood Urea Nitrogen < 5 mg/dL (9-23); Calcium 7.0 mg/dL (8.3-10.6); Calcium (Corrected) 8.1 mg/dL (8.5-10.1); Carbon Dioxide 25.8 mMol/L (20.0-31.0); Chloride 93 mMol/L (98-107); Creatinine (Component) 0.4 mg/dL (0.6-1.3); Globulin 2.4 gm/dL (2.3-3.5); Glucose 106 mg/dL (74-106); Osmolality,Calculated 252 (275-295); Potassium 3.4 mMol/L (3.4-5.1); Sodium 127 mMol/L (136-145); Total Protein 5.0 gm/dL (5.7-8.2); eGFR > 60 See Note
[2025-05-07 06:23] LABS: Osmolality, Serum* 245 mOsm/kg (278-305)
--- NOTE | 2025-05-07 07:03 | XR_ITS ---
EXAMINATION: AP chest single view TECHNIQUE: AP portable semiupright chest single view Date and time: May 07, 2025, 0747 hours COMPARISON: April 30, 2025 INDICATIONS: Post orogastric tube placement. FINDINGS: Orogastric tube in the stomach satisfactory position No aspiration pneumonia Normal heart size Right arm PICC line tip SVC Mild vascular congestion IMPRESSION: Negative for aspiration pneumonia Orogastric tube in the stomach satisfactory position
--- NOTE | 2025-05-07 07:18 | PC.NURSE ---
During change of report with noc nurse. Assessed NGT positioned at 23 to the right nare. Golytely is off. Per noc nurse turned off at 4am due sounding gurgly. Noc nurse notified Marnie and got a chest xray order. Patient is alert.
--- NOTE | 2025-05-07 07:29 | PC.NURSE ---
NG tube found at 26 at the nare, ordered a chest xray, charge nurse aware.
--- NOTE | 2025-05-07 07:38 | PC.NURSE ---
Golytely turned off at 4 AM, when another nurse overheard the patient gurgling. Lesa AVILA and charge nurse informed.
--- NOTE | 2025-05-07 08:26 | PC.SS ---
Update: Colonoscopy remains pending.
[2025-05-07] MEDS: TAMSULOSIN HCL 0.4 MG CAPSULE PO (09:58)
[2025-05-07] MEDS: ASCORBIC ACID 250 MG TABLET 500 MG PO ×2 (09:59→20:45)
[2025-05-07] MEDS: ZINC GLUCONATE 50 MG TABLET PO (10:00)
[2025-05-07] MEDS: SODIUM CHLORIDE 1 GM TABLET PO (10:00)
[2025-05-07] MEDS: FINASTERIDE 5 MG TABLET PO (10:00)
[2025-05-07] MEDS: DOXYCYCLINE 100 MG TABLET PO ×2 (10:00→20:45)
[2025-05-07] MEDS: cefTRIAXone 2 GM in SODIUM CHLORIDE 0.9% (Popper) 50 ML IV (10:03)
--- NOTE | 2025-05-07 13:01 | ESPR_ITS ---
<Statement entered by Rosemary Moody MD - 05/08/25 07:30> Patient was seen and examined by me personally. I have directly supervised and reviewed documentation by the team resident and agree with its findings with any exceptions or additional findings as below. Plan of care was discussed with the attending, Dr. Mota. Rosemary Moody, PGY-3 Documentation for date of: 05/07/25 Subjective Subjective Interval history: No overnight events. Patient was examined at bedside; they appear A&Ox3 and in NAD. Vitals/labs today significant for sodium 129->127, potassium 3.5->3.4, corrected calcium 8.4->8.1. Physical exam significant for some serosanguinous drainage from gangrenous hallux of right foot. Sodium level today decreased despite continuation of salt tablets but this is likely due to patient's continued intake of copious amounts of GoLytely. Patient is anticipated to have his colonoscopy performed today after his BM's have become clear from GoLytely administration via NG tube. He is anticipated to be discharged to SNF once this has been completed. Exam Vital Signs Temp Pulse Resp BP Pulse Ox O2 Del Method O2 Flow Rate 97.0 F 82 14 156/90 H 97 Room Air 3 05/07/25 12:00 05/07/25 12:00 05/07/25 12:00 05/07/25 12:00 05/07/25 12:00 05/07/25 12:00 05/03/25 12:10 Narrative Exam General: A/O x2 thin, elderly male in no acute distress. Skin: Large ecchymoses of right arm. Warm, dry, intact, no obvious rash. Head: Normocephalic, atraumatic. Eyes: PERRL, EOMI. Anicteric, vision grossly intact. Ears: Presbycusis. No ear pain, no ear discharge. Nose: NG tube in place. No nasal discharge. Mouth/Throat: Edentulous. Oral mucosa dry-appearing. No obvious lesions in oropharynx. Neck: Neck supple, non-tender, no cervical lymphadenopathy. Cardiovascular: Normal rate and normal rhythm, no murmur, no JVD or carotid bruits. +S1/S2. Respiratory: Dry coughing intermittently during exam. Bilateral lungs difficult to ausculate clearly but seemingly free of crackles, rales, rhonchi, or wheezing. Respirations unlabored and no accessory muscle use. Gastrointestinal: Soft, nontender, non-distended, no palpable masses. No guarding or rebound tenderness. Peristalsis present. Extremities: Right big toe appears blackened and necrotic, some serosanguinous- appearing discharge towards the base of the hallux. No edema, no cyanosis, no clubbing. 2+ radial pulse bilaterally, 2+ posterior tibial pulse bilaterally. Neuro: No focal deficits observed. Conversant, moving all extremities. No overt cerebellar signs/incoordination. Psychiatric: Slow speech. Cooperative, appropriate affect. Objective Labs 05/08/25 05:00 05/07/25 05:00 Labs: Laboratory Results - last 24 hr 04/30/25 05/07/25 16:14 05:00 WBC 6.4 RBC 2.74 L Hgb 8.6 L Hct 24.4 L MCV 89 MCH 31.4 MCHC 35.2 RDW Std Deviation 51.9 H Plt Count 312 Neut % (Auto) 77 Lymph % (Auto) 11 [place] % (Auto) 8 Eos % (Auto) 2 Baso % (Auto) 1 Neut # (Auto) 5.0 Lymph # (Auto) 0.7 L [place] # (Auto) 0.5 Eos # (Auto) 0.1 Baso # (Auto) 0.0 Immature Gran # (Auto) 0.05 H Absolute Nucleated RBC 0.00 Immature Gran % 1 H Nucleated RBC % 0 Sodium 127 L Potassium 3.4 Chloride 93 L Carbon Dioxide 25.8 Anion Gap 8 BUN < 5 L Creatinine 0.4 L Estim Creat Clear Calc Not Performed. eGFR > 60 BUN/Creatinine Ratio 13 Glucose 106 Serum Osmolality 245 L Calculated Osmolality 252 L Calcium 7.0 L Corrected Calcium 8.1 L Total Bilirubin 0.5 AST 28 ALT 24 Alkaline Phosphatase 83 Total Protein 5.0 L Albumin 2.6 L Globulin 2.4 Albumin/Globulin Ratio 1.1 L Quality Measures Quality Measures none Advance care planning discussed with:: patient Assessment & Plan Assessment Current Active Medications: Generic Name Dose Route Start Last Admin Trade Name Freq PRN Reason Stop Dose Admin Acetaminophen 650 mg 04/30/25 16:45 Acetaminophen 325 Mg Tablet PO 05/30/25 16:44 Q6H PRN PAIN SCALE 1-3 (mild Ascorbic Acid 500 mg 05/01/25 21:00 05/07/25 09:59 Ascorbic Acid 250 Mg Tablet PO 05/31/25 20:59 500 mg BID HUMBERTO Administration Bisacodyl 5 mg 05/03/25 09:00 05/07/25 10:00 Bisacodyl 5 Mg Tabec PO 06/02/25 08:59 5 mg QDAY HUMBERTO Administration Protocol Doxycycline Hyclate 100 mg 05/01/25 21:00 05/07/25 10:00 Doxycycline 100 Mg Tablet PO 05/08/25 20:59 100 mg BID HUMBERTO Administration Finasteride 5 mg 05/05/25 09:00 05/07/25 10:00 Finasteride 5 Mg Tablet PO 06/04/25 08:59 5 mg QDAY HUMBERTO Administration Heparin Sodium (Porcine) 5,000 unit 05/05/25 09:00 Heparin Sod Inj 5000 Unit/Ml Vial SC 05/19/25 08:59 On Hold: 05/05/25 09:00 Q12HR HUMBERTO Ceftriaxone Sodium 2 gm/ 50 mls @ 100 mls/hr 05/01/25 09:00 05/07/25 10:03 Sodium Chloride IV 05/08/25 08:59 100 mls/hr QDAY HUMBERTO Administration Ondansetron HCl 4 mg 04/30/25 16:45 Ondansetron Inj 2 Mg/Ml Inj 2 Ml IVP 05/30/25 16:44 Q6H PRN NAUSEA OR VOMITING Protocol Sennosides 1 tab 05/03/25 09:00 05/07/25 10:00 Senna Tablet PO 06/02/25 08:59 1 tab QDAY HUMBERTO Administration Protocol Sodium Chloride 1 gm 05/01/25 09:00 05/07/25 10:00 Sodium Chloride 1 Gm Tablet PO 05/31/25 08:59 1 gm DAILY HUMBERTO Administration Tamsulosin HCl 0.4 mg 05/04/25 16:00 05/07/25 09:58 Tamsulosin Hcl 0.4 Mg Capsule PO 06/03/25 15:59 0.4 mg QDAY HUMBERTO Administration Zinc Gluconate 50 mg 05/01/25 15:15 05/07/25 10:00 Zinc Gluconate 50 Mg Tablet PO 05/31/25 15:14 50 mg QDAY HUMBERTO Administration Plan Patient is an 79-year-old male with a PMH of recurrent hyponatremia, hypertension, type 2 diabetes mellitus, coronary artery disease status post stents in July 2023, peripheral arterial disease, and BPH who presented on 04/30/2025 after he was told to do so when his outpatient labs showed severe hypoosmolar hyponatremia. Patient was admitted for the work-up and management of severe hypo-osmolar hyponatremia without symptoms. #Acute on chronic hyponatremia, improved #H/O SIADH/chronic hyponatremia, on salt tablets #2/2 drug non-compliance 04/30 admission sodium 118 at around 14:30 (calculated osmolality 236, euvolemic-appearing) Per , patient is released from rehab 2 weeks before the day of admission and not sure if he received salt tablets in the facility and missed some doses after coming to home Dx: -04/30 urine random electrolytes showed creatinine 41, sodium 48.2, potassium 36, chloride 74.0 Rx: -Nephrology (Dr. Marquez) consulted, appreciate recommendations -Sodium remained stable at 129, will continue to monitor -Salt tablets 1 g PO QD #?Community-acquired pneumonia #Significant smoking Hx, [id number] 04/30 CXR showed interstitial densities throughout the lungs that were possibly suggestive of pneumonia During initial exam, patient was noted to have an intermittent dry cough but he did not present with leukocytosis or fever Per prior documentation, patient has smoked an average of 1 pack/day for 50-60 years Dx: -Coccidioides IgM antibody assay ordered, negative -COVID lab work-up ordered, negative Rx: -Rocephin 2 g IV QD [04/30--] -Doxycycline 100mg twice daily [05/01--] -Discontinued azithromycin 500 mg IV QD [04/30-05/01] #Necrotic hallux of right foot #Osteomyelitis of right distal hallux #Hx of peripheral arterial disease #Hx of type 2 diabetes mellitus On physical exam, the big toe of patient's right toe is noted to be blackened and necrotic-appearing (no drainage) and patient is unsure when or how it became as such Likely 2/2 significant peripheral arterial disease as patient's hemoglobin A1c this admission was not that high Dx: -04/30 toe XR ordered, showed osteomyelitis -Ordered hemoglobin A1c, 6.7 Rx: -General Surgery (Dr. Quispe), consulted - recommended no surgical intervention as of now -Wound care referral -PICC line placed as of 05/02 -Rocephin 2 g IV QD [04/30--] -Doxycycline 100mg twice daily [05/01--] #?Acute blood loss anemia 05/02 Hgb 8.5->6.7, unclear etiology but suspect blood loss from somewhere s/p pRBC transfusion x 1 on 05/02 Dx: -05/03 upper endoscopy completed, showed gastritis and erythema, no significant source of bleeding -Pending colonoscopy, showed ___ -Iron panel and ferritin ordered, showed iron 67, TIBC 136, iron saturation 49, unsaturated iron binding 69, and ferritin 707 (not suggestive of LOTUS) -B12 and folate ordered, WNL Rx: -GI consulted, appreciate recommendations -GoLytely prep and colonoscopy followed by that -Heparin 5K SC Q8HR held -Hemoglobin is stable as of now -Continue to monitor CBC, transfuse if Hgb<8 (s/p coronary stent placement) RRx: -Due to patient's non-compliance with adequate bowel prep (on jug after 3rd day), he had an NG tube placed on 05/06 and have GoLytely administered through it at a rate of 250 cc/hr with plans to titrate it up by 25 cc/hr to a goal rate of 300 cc/hr until his bowel movements are clear. -Head of bed elevation at 45 degrees ordered Hospital Management: Disposition: Tele Diet: Clear liquid diet GI Prophylaxis: None Bowel Prophylaxis: None DVT Prophylaxis: Heparin (HELD due to concern for acute blood loss anemia) CODE STATUS: Full Code Patient plan of care was discussed with the attending physician Dr. Mota and senior resident Dr. Heidy Cristina, DO PGY-1 Attending Provider Attestation/Addendum I have examined the patient, reviewed labs and imaging findings, discussed the case with the resident(s), and reviewed entered orders. I agree with the plan of care as outlined in this note, with these additional summaries/recommendations: Patient seen at bedside. No acute overnight events. Patient has no acute concerns today. Unfortunately patient's sodium slightly worsened from 129-127 likely secondary to GoLytely. We will continue salt tablets for SIADH. Continue IV antibiotics for community-acquired pneumonia, osteomyelitis/cellulitis. General surgery consulted, recommendations appreciated. Patient received a GoLytely for acute symptomatic anemia and pending colonoscopy. Please see residents note for additional details and management. Dr. Nakul MD
--- NOTE | 2025-05-07 15:01 | PC.SS ---
Rounding Note: Patient still not having clear bowel movements. Colonoscopy is pending.
--- NOTE | 2025-05-07 17:52 | SUR.OPER ---
1750 NGT removed per md order. Pt cale well.
--- NOTE | 2025-05-07 18:42 | SUR.PHASEI ---
[id number] patient arrived to recovery, report received from Oneyda CABRERA
--- NOTE | 2025-05-07 19:13 | SUR.PHASEI ---
191 patient transported via gurney back to room [id number] without incident
[2025-05-08] VITALS (7 sets, daily range): BP systolic 106–154; BP diastolic 65–81; PULSE 61–121; RESP 7–23; TEMP 35.9–36.6; O2SAT 96–99
[2025-05-08] MEDS: ACETAMINOPHEN 325 MG TABLET 650 MG PO (05:10)
[2025-05-08 05:33] LABS: Basophils # (Auto) 0.0 Thou/mm3 (0.0-0.2); Basophils % (Auto) 0 % (0-2.5); Eosinophils # (Auto) 0.0 Thou/mm3 (0.0-0.5); Eosinophils % (Auto) 1 % (0-10); Hematocrit 30.2 % (41.0-53.0); Hemoglobin 10.6 g/dL (13.5-16.0); Immature Granulocytes Auto 0.03 Thou/mm3 (0.00-0.00); Lymphocytes # (Auto) 0.6 Thou/mm3 (1.0-4.8); Lymphocytes % (Auto) 8 % (10-50); Mean Corpuscular HGB Conc 35.1 g/dl (31.0-37.0); Mean Corpuscular Hemoglobin 31.2 pg (25.0-35.0); Mean Corpuscular Volume 89 fL (80-100); Monocytes # (Auto) 0.3 Thou/mm3 (0.0-0.8); Monocytes % (Auto) 4 % (0-12); Neutrophils # (Auto) 6.9 Thou/mm3 (1.8-7.7); Neutrophils % (Auto) 87 % (37-80); Nucleated Red Blood Cell # 0.00 Thou/mm3 (0.00-0.00); Nucleated Red Blood Cell % 0 /100 WBC (0); Platelet Count 346 Thou/mm3 (140-440); RDW Standard Deviation 52.0 fL (35.1-43.9); Red Blood Count 3.40 Miln/mm3 (4.50-5.90); White Blood Count 8.0 Thou/mm3 (3.8-10.6)
[2025-05-08 08:02] LABS: Alanine Aminotransferase 21 U/L (10-49); Albumin, Serum 2.8 gm/dL (3.4-4.8); Albumin/Globulin Ratio 1.1 (1.2-2.2); Alkaline Phosphatase 98 U/L (46-116); Anion Gap 9 (7-16); Aspartate Amino Transferase 25 U/L (0-34); BUN/Creatinine Ratio 13 Ratio (12-20); Bilirubin,Total 0.6 mg/dL (0.3-1.2); Blood Urea Nitrogen < 5 mg/dL (9-23); Calcium 7.2 mg/dL (8.3-10.6); Calcium (Corrected) 8.2 mg/dL (8.5-10.1); Carbon Dioxide 23.3 mMol/L (20.0-31.0); Chloride 94 mMol/L (98-107); Creatinine (Component) 0.4 mg/dL (0.6-1.3); Globulin 2.5 gm/dL (2.3-3.5); Glucose 136 mg/dL (74-106); Osmolality,Calculated 252 (275-295); Potassium 3.2 mMol/L (3.4-5.1); Sodium 126 mMol/L (136-145); Total Protein 5.3 gm/dL (5.7-8.2); eGFR > 60 See Note
[2025-05-08] MEDS: POTASSIUM CHLORIDE 10% 20 MEQ/15 ML UDC 40 MEQ PO (09:23)
[2025-05-08] MEDS: TAMSULOSIN HCL 0.4 MG CAPSULE PO (09:24)
[2025-05-08] MEDS: SODIUM CHLORIDE 1 GM TABLET PO ×2 (09:24→20:30)
[2025-05-08] MEDS: FINASTERIDE 5 MG TABLET PO (09:24)
[2025-05-08] MEDS: DOXYCYCLINE 100 MG TABLET PO (09:24)
[2025-05-08] MEDS: ZINC GLUCONATE 50 MG TABLET PO (09:24)
[2025-05-08] MEDS: ASCORBIC ACID 250 MG TABLET 500 MG PO ×2 (09:24→20:29)
[2025-05-08] MEDS: CALCIUM CARBONATE 600 MG TABLET PO (10:23)
--- NOTE | 2025-05-08 10:38 | PD.IMPROG ---
Documentation for date of: 05/08/25 Subjective Subjective Interval history: Patient evaluated Hemoglobin hematocrit 10.6 and 30.2 Patient's status post colonoscopy requiring extensive banding of the large internal hemorrhoids that should help Upper endoscopy showed gastritis Exam Vital Signs Temp Pulse Resp BP Pulse Ox O2 Del Method O2 Flow Rate 96.7 F L 61 21 H 119/74 96 Room Air 3 05/08/25 08:00 05/08/25 08:00 05/08/25 08:00 05/08/25 08:00 05/08/25 08:00 05/08/25 08:00 05/07/25 18:30 Objective Labs 05/08/25 05:00 05/08/25 07:15 Labs: Laboratory Results - last 24 hr 05/08/25 05/08/25 05:00 07:15 WBC 8.0 RBC 3.40 L Hgb 10.6 L D Hct 30.2 L MCV 89 MCH 31.2 MCHC 35.1 RDW Std Deviation 52.0 H Plt Count 346 D Neut % (Auto) 87 H Lymph % (Auto) 8 L Vernon % (Auto) 4 Eos % (Auto) 1 Baso % (Auto) 0 Neut # (Auto) 6.9 Lymph # (Auto) 0.6 L Vernon # (Auto) 0.3 Eos # (Auto) 0.0 Baso # (Auto) 0.0 Immature Gran # (Auto) 0.03 H Absolute Nucleated RBC 0.00 Immature Gran % 0 Nucleated RBC % 0 Sodium 126 L Potassium 3.2 L Chloride 94 L Carbon Dioxide 23.3 Anion Gap 9 BUN < 5 L Creatinine 0.4 L Estim Creat Clear Calc Not Performed. eGFR > 60 BUN/Creatinine Ratio 13 Glucose 136 H Calculated Osmolality 252 L Calcium 7.2 L Corrected Calcium 8.2 L Total Bilirubin 0.6 AST 25 ALT 21 Alkaline Phosphatase 98 Total Protein 5.3 L Albumin 2.8 L Globulin 2.5 Albumin/Globulin Ratio 1.1 L Impressions Impression: GI bleed stable status post band ligation of the large internal inflamed hemorrhoids Gastritis Esophagitis Advance diet as tolerated Assessment & Plan A&P Narrative # Anemia multifactorial probably 1 component is anemia of blood loss with a significant drop in hemoglobin hematocrit without change in BUN/creatinine Suggestions iron panel with iron saturation B12 level folate level Reticulocyte count Stool for occult blood Will schedule upper endoscopy with possible therapeutic intervention under intravenous moderate sedation Other medical problems include Hyponatremia Coronary artery status post PCI Diabetes mellitus type 2 BPH Thank you very much for the opportunity to participate in the care of this patient Time Spent With Patient Time: Total time spent is greater than 50% in coordination of care (as documented) at patient's floor/unit and/or counseling patient:
--- NOTE | 2025-05-08 15:51 | ESPR_ITS ---
Documentation for date of: 05/08/25 Subjective Subjective Interval history: No overnight events. Patient was examined at bedside; they appear A&Ox2 and in NAD. Vitals/labs today significant for BP 154/72, sodium 127->126, potassium 3.2 (repleted with 40 mEq liquid PO), corrected calcium 8.2 (repleted with 600 mg CaCO3 PO). Physical exam notable for possible proximal spread of gangrenous area of the right foot. 05/08 colonoscopy has been completed and showed grade IV internal hemorrhoid without active bleeding that was ultimately banded (could possibly have been bleeding earlier which was what led to Hgb 8.5->6.7 on 05/02). Today, patient's sodium continues to down-trend despite being on 1 salt tablet per day so this has been increased to 2 salt tablets per day. It is unknown where the sodium is going as patient's urine electrolytes earlier in his course were measured to be within normal limits. Otherwise, due to concern for worsening necrosis of the right hallux on physical exam today, General Surgery (Dr. Quispe) will be asked to re-evaluate regarding whether or not this requires surgical intervention or continued medical management only. Exam Vital Signs Temp Pulse Resp BP Pulse Ox O2 Del Method O2 Flow Rate 96.9 F 121 H 7 L 106/81 99 Room Air 3 05/08/25 12:00 05/08/25 12:00 05/08/25 12:00 05/08/25 12:00 05/08/25 12:00 05/08/25 12:00 05/07/25 18:30 Narrative Exam General: A/O x2 thin, elderly male in no acute distress. Skin: Large ecchymoses of right arm. Warm, dry, intact, no obvious rash. Head: Normocephalic, atraumatic. Eyes: PERRL, EOMI. Anicteric, vision grossly intact. Ears: Presbycusis. No ear pain, no ear discharge. Nose: NG tube no longer in place. No nasal discharge. Mouth/Throat: Edentulous. Oral mucosa dry-appearing. No obvious lesions in oropharynx. Neck: Neck supple, non-tender, no cervical lymphadenopathy. Cardiovascular: Normal rate and normal rhythm, no murmur, no JVD or carotid bruits. +S1/S2. Respiratory: Dry coughing intermittently during exam. Bilateral lungs difficult to ausculate clearly but seemingly free of crackles, rales, rhonchi, or wheezing. Respirations unlabored and no accessory muscle use. Gastrointestinal: Soft, nontender, non-distended, no palpable masses. No guarding or rebound tenderness. Peristalsis present. Extremities: Right big toe appears blackened and necrotic, some serosanguinous- appearing discharge towards the base of the hallux. Seems to have spread distally as of 05/08. No edema, no cyanosis, no clubbing. 2+ radial pulse bilaterally, 2+ posterior tibial pulse bilaterally. Neuro: No focal deficits observed. Conversant, moving all extremities. No overt cerebellar signs/incoordination. Psychiatric: Slow speech. Cooperative, appropriate affect. Objective Labs 05/09/25 06:31 05/09/25 06:31 Labs: Laboratory Results - last 24 hr 05/08/25 05/08/25 05:00 07:15 WBC 8.0 RBC 3.40 L Hgb 10.6 L D Hct 30.2 L MCV 89 MCH 31.2 MCHC 35.1 RDW Std Deviation 52.0 H Plt Count 346 D Neut % (Auto) 87 H Lymph % (Auto) 8 L Swisher % (Auto) 4 Eos % (Auto) 1 Baso % (Auto) 0 Neut # (Auto) 6.9 Lymph # (Auto) 0.6 L Swisher # (Auto) 0.3 Eos # (Auto) 0.0 Baso # (Auto) 0.0 Immature Gran # (Auto) 0.03 H Absolute Nucleated RBC 0.00 Immature Gran % 0 Nucleated RBC % 0 Sodium 126 L Potassium 3.2 L Chloride 94 L Carbon Dioxide 23.3 Anion Gap 9 BUN < 5 L Creatinine 0.4 L Estim Creat Clear Calc Not Performed. eGFR > 60 BUN/Creatinine Ratio 13 Glucose 136 H Calculated Osmolality 252 L Calcium 7.2 L Corrected Calcium 8.2 L Total Bilirubin 0.6 AST 25 ALT 21 Alkaline Phosphatase 98 Total Protein 5.3 L Albumin 2.8 L Globulin 2.5 Albumin/Globulin Ratio 1.1 L Quality Measures Quality Measures none Advance care planning discussed with:: patient Assessment & Plan Assessment Current Active Medications: Generic Name Dose Route Start Last Admin Trade Name Freq PRN Reason Stop Dose Admin Acetaminophen 650 mg 04/30/25 16:45 05/08/25 05:10 Acetaminophen 325 Mg Tablet PO 05/30/25 16:44 650 mg Q6H PRN Administration PAIN SCALE 1-3 (mild Ascorbic Acid 500 mg 05/01/25 21:00 05/08/25 09:24 Ascorbic Acid 250 Mg Tablet PO 05/31/25 20:59 500 mg BID HUMBERTO Administration Bisacodyl 5 mg 05/03/25 09:00 05/08/25 09:23 Bisacodyl 5 Mg Tabec PO 06/02/25 08:59 5 mg QDAY HUMBERTO Administration Protocol Calcium Carbonate 600 mg 05/08/25 10:15 05/08/25 10:23 Calcium Carbonate 600 Mg Tablet PO 06/07/25 10:14 600 mg QDAY HUMBERTO Administration Doxycycline Hyclate 100 mg 05/01/25 21:00 05/08/25 09:24 Doxycycline 100 Mg Tablet PO 05/08/25 20:59 100 mg BID HUMBERTO Administration Finasteride 5 mg 05/05/25 09:00 05/08/25 09:24 Finasteride 5 Mg Tablet PO 06/04/25 08:59 5 mg QDAY HUMBERTO Administration Heparin Sodium (Porcine) 5,000 unit 05/05/25 09:00 Heparin Sod Inj 5000 Unit/Ml Vial SC 05/19/25 08:59 On Hold: 05/05/25 09:00 Q12HR HUMBERTO Ondansetron HCl 4 mg 04/30/25 16:45 Ondansetron Inj 2 Mg/Ml Inj 2 Ml IVP 05/30/25 16:44 Q6H PRN NAUSEA OR VOMITING Protocol Sennosides 1 tab 05/03/25 09:00 05/08/25 09:24 Senna Tablet PO 06/02/25 08:59 1 tab QDAY HUMBERTO Administration Protocol Sodium Chloride 1 gm 05/08/25 09:00 05/08/25 09:24 Sodium Chloride 1 Gm Tablet PO 06/07/25 08:59 1 gm BID HUMBERTO Administration Tamsulosin HCl 0.4 mg 05/04/25 16:00 05/08/25 09:24 Tamsulosin Hcl 0.4 Mg Capsule PO 06/03/25 15:59 0.4 mg QDAY HUMBERTO Administration Zinc Gluconate 50 mg 05/01/25 15:15 05/08/25 09:24 Zinc Gluconate 50 Mg Tablet PO 05/31/25 15:14 50 mg QDAY HUMBERTO Administration Plan Patient is an 79-year-old male with a PMH of recurrent hyponatremia, hypertension, type 2 diabetes mellitus, coronary artery disease status post stents in July 2023, peripheral arterial disease, and BPH who presented on 04/30/2025 after he was told to do so when his outpatient labs showed severe hypoosmolar hyponatremia. Patient was admitted for the work-up and management of severe hypo-osmolar hyponatremia without symptoms. #Acute on chronic hyponatremia, improved #H/O SIADH/chronic hyponatremia, on salt tablets #2/2 drug non-compliance 04/30 admission sodium 118 at around 14:30 (calculated osmolality 236, euvolemic-appearing) Per , patient is released from rehab 2 weeks before the day of admission and not sure if he received salt tablets in the facility and missed some doses after coming to home It is unknown where the sodium is going as patient's urine electrolytes earlier in his course were measured to be within normal limits, seemingly making SIADH less likely Dx: -04/30 urine random electrolytes showed creatinine 41, sodium 48.2, potassium 36, chloride 74.0 Rx: -Nephrology (Dr. Marquez) consulted, appreciate recommendations -Sodium down-trended from 127 to 126, despite being on salt tablet 1 tab PO QD, will continue to monitor -Salt tablets 1 g PO BID #Necrotic hallux of right foot #Osteomyelitis of right distal hallux #Hx of peripheral arterial disease #Hx of type 2 diabetes mellitus On physical exam, the big toe of patient's right toe is noted to be blackened and necrotic-appearing (no drainage) and patient is unsure when or how it became as such Likely 2/2 significant peripheral arterial disease as patient's hemoglobin A1c this admission was not that high Seems worsened as of 05/08 physical exam with some proximal spread of gangrenous area Dx: -04/30 toe XR ordered, showed osteomyelitis -Ordered hemoglobin A1c, 6.7 Rx: -General Surgery (Dr. Quispe), consulted - recommended no surgical intervention initially -Re-consult Dr. Quispe due to 05/08 physical exam findings -Wound care referral -PICC line placed as of 05/02 -Rocephin 2 g IV QD [04/30--] -Doxycycline 100mg twice daily [05/01--] #?Community-acquired pneumonia #Significant smoking Hx, [id number] 04/30 CXR showed interstitial densities throughout the lungs that were possibly suggestive of pneumonia During initial exam, patient was noted to have an intermittent dry cough but he did not present with leukocytosis or fever Per prior documentation, patient has smoked an average of 1 pack/day for 50-60 years Dx: -Coccidioides IgM antibody assay ordered, negative -COVID lab work-up ordered, negative Rx: -Rocephin 2 g IV QD [04/30--] -Doxycycline 100mg twice daily [05/01--] -Discontinued azithromycin 500 mg IV QD [04/30-05/01] #?Acute blood loss anemia #Internal hemorrhoids, grade IV, now banded 05/02 Hgb 8.5->6.7, unclear etiology but suspect blood loss from somewhere s/p pRBC transfusion x 1 on 05/02 Dx: -05/03 upper endoscopy completed, showed gastritis and erythema, no significant source of bleeding -05/08 colonoscopy completed, showed grade IV internal hemorrhoid without active bleeding that was ultimately banded (may have been the cause of 05/02 Hgb drop) -Iron panel and ferritin ordered, showed iron 67, TIBC 136, iron saturation 49, unsaturated iron binding 69, and ferritin 707 (not suggestive of LOTUS) -B12 and folate ordered, WNL Rx: -GI consulted, appreciate recommendations -Heparin 5K SC Q8HR held -Hemoglobin is stable as of now -Continue to monitor CBC, transfuse if Hgb<8 (s/p coronary stent placement) RRx: -Due to patient's non-compliance with adequate bowel prep (on jug after 3rd day), he had an NG tube placed on 05/06 and have GoLytely administered through it at a rate of 250 cc/hr with plans to titrate it up by 25 cc/hr to a goal rate of 300 cc/hr until his bowel movements are clear. -Head of bed elevation at 45 degrees ordered #Urinary retention #BPH Patient was having retained urine as seen on bladder scan likely 2/2 BPH Rx: -Flomax 0.4 mg PO QD -Finasteride 5 mg PO QD Hospital Management: Disposition: Tele Diet: Dysphagia 1 - Pureed GI Prophylaxis: None Bowel Prophylaxis: None DVT Prophylaxis: Heparin (HELD due to concern for acute blood loss anemia) CODE STATUS: Full Code Patient plan of care was discussed with the attending physician Dr. Mota and senior resident Dr. Heidy Cristina, PGY-1 Attending Provider Attestation/Addendum I have examined the patient, reviewed labs and imaging findings, discussed the case with the resident(s), and reviewed entered orders. I agree with the plan of care as outlined in this note, with these additional summaries/recommendations: Patient seen at bedside. No acute overnight events. Patient was noted to be coughing while eating breakfast. Patient was seen by speech therapy who recommends dysphagia 1 diet and thin liquids. Patient admitted for acute on chronic hyponatremia. Sodium originally improved although is now downtrending. Sodium down to 126 today. We will increase salt tablets to sodium chloride 1 g twice daily. If no improvement we will consult nephrology. Patient is status post colonoscopy overnight which revealed internal hemorrhoids which were banded. Continue IV antibiotics for osteomyelitis of right foot with necrotic hallux. General surgery following. Patient updated on the plan and in agreement. All questions answered to satisfaction. Please see residents note for additional details and management. Dr. Nakul MD
[2025-05-09] VITALS: BP 125/66; PULSE 77; PULSE 80; RESP 16; TEMP 37.4; O2SAT 98
[2025-05-09 04:00] VITALS: BP 131/75; PULSE 85; PULSE 88; RESP 18; TEMP 36.4; O2SAT 99
[2025-05-09] MEDS: ACETAMINOPHEN 325 MG TABLET 650 MG PO (05:50)
[2025-05-09 06:51] LABS: Basophils # (Auto) 0.0 Thou/mm3 (0.0-0.2); Basophils % (Auto) 0 % (0-2.5); Eosinophils # (Auto) 0.1 Thou/mm3 (0.0-0.5); Eosinophils % (Auto) 1 % (0-10); Hematocrit 23.8 % (41.0-53.0); Immature Granulocytes Auto 0.06 Thou/mm3 (0.00-0.00); Lymphocytes # (Auto) 0.7 Thou/mm3 (1.0-4.8); Lymphocytes % (Auto) 8 % (10-50); Mean Corpuscular HGB Conc 34.9 g/dl (31.0-37.0); Mean Corpuscular Hemoglobin 31.1 pg (25.0-35.0); Mean Corpuscular Volume 89 fL (80-100); Monocytes # (Auto) 0.5 Thou/mm3 (0.0-0.8); Monocytes % (Auto) 6 % (0-12); Neutrophils # (Auto) 6.8 Thou/mm3 (1.8-7.7); Neutrophils % (Auto) 84 % (37-80); Nucleated Red Blood Cell # 0.00 Thou/mm3 (0.00-0.00); Nucleated Red Blood Cell % 0 /100 WBC (0); Platelet Count 283 Thou/mm3 (140-440); RDW Standard Deviation 53.8 fL (35.1-43.9); Red Blood Count 2.67 Miln/mm3 (4.50-5.90); White Blood Count 8.1 Thou/mm3 (3.8-10.6)
[2025-05-09 06:59] LABS: Hemoglobin 8.3 g/dL (13.5-16.0)
[2025-05-09 07:05] LABS: Alanine Aminotransferase 16 U/L (10-49); Albumin, Serum 2.6 gm/dL (3.4-4.8); Albumin/Globulin Ratio 1.1 (1.2-2.2); Alkaline Phosphatase 92 U/L (46-116); Anion Gap 6 (7-16); Aspartate Amino Transferase 17 U/L (0-34); BUN/Creatinine Ratio 10 Ratio (12-20); Bilirubin,Total 0.5 mg/dL (0.3-1.2); Blood Urea Nitrogen 5 mg/dL (9-23); Calcium 7.2 mg/dL (8.3-10.6); Calcium (Corrected) 8.3 mg/dL (8.5-10.1); Carbon Dioxide 24.6 mMol/L (20.0-31.0); Chloride 96 mMol/L (98-107); Creatinine (Component) 0.5 mg/dL (0.6-1.3); Globulin 2.3 gm/dL (2.3-3.5); Glucose 148 mg/dL (74-106); Osmolality,Calculated 255 (275-295); Potassium 3.7 mMol/L (3.4-5.1); Sodium 127 mMol/L (136-145); Total Protein 4.9 gm/dL (5.7-8.2); eGFR > 60 See Note
[2025-05-09 08:00] VITALS: BP 119/68; PULSE 79; PULSE 84; RESP 16; TEMP 36.2; O2SAT 99
[2025-05-09] MEDS: ASCORBIC ACID 250 MG TABLET 500 MG PO ×2 (08:16→21:30)
[2025-05-09] MEDS: CALCIUM CARBONATE 600 MG TABLET PO (08:16)
[2025-05-09] MEDS: SODIUM CHLORIDE 1 GM TABLET PO ×2 (08:16→21:30)
[2025-05-09] MEDS: ZINC GLUCONATE 50 MG TABLET PO (08:16)
[2025-05-09] MEDS: FINASTERIDE 5 MG TABLET PO (08:17)
[2025-05-09] MEDS: TAMSULOSIN HCL 0.4 MG CAPSULE PO (08:17)
--- NOTE | 2025-05-09 11:07 | PC.SS ---
SS follow up note; Patient's sodium is being monitored. Patient will discharge back home when medically cleared.
[2025-05-09 12:00] VITALS: BP 136/71; PULSE 79; PULSE 81; RESP 17; TEMP 36.8; O2SAT 99
[2025-05-09 13:56] VITALS: BMI 12.0
--- NOTE | 2025-05-09 13:58 | ESPR_ITS ---
Documentation for date of: 05/09/25 Subjective Subjective Interval history: No overnight events. Patient was examined at bedside; they appear A&Ox3 and in NAD. Vitals/labs today significant for Hgb 10.6->8.3, sodium 126->127. Physical exam still notable for some proximal spread of gangrenous area of the right hallux. Due to seemingly worsening necrotix hallux of right foot, General Surgery (Dr. Quispe) has been requested to re-evaluate the patient on whether surgical intervention is necessary. Patient's sodium seems to have improved slightly on 2 salt tablets per day (it was also revealed that this appears to be a familial condition as sister also endorses having chronic issues with low sodium levels). PT referral has been ordered. Otherwise, patient is anticipated to be discharged to SNF with PICC line in place for continued IV antibiotic treatment of his chronic osteomyelitis in the out-patient setting. Family has been made aware of the plan as well as patient's hospital course thus far and all questions were answered to their satisfaction. Exam Vital Signs Temp Pulse Resp BP Pulse Ox O2 Del Method O2 Flow Rate 97.2 F 79 16 119/68 99 Room Air 3 05/09/25 08:00 05/09/25 08:00 05/09/25 08:00 05/09/25 08:00 05/09/25 08:00 05/09/25 08:00 05/07/25 18:30 Narrative Exam General: A/O x2 thin, elderly male in no acute distress. Skin: Large ecchymoses of right arm. Warm, dry, intact, no obvious rash. Head: Normocephalic, atraumatic. Eyes: PERRL, EOMI. Anicteric, vision grossly intact. Ears: Presbycusis. No ear pain, no ear discharge. Nose: NG tube no longer in place. No nasal discharge. Mouth/Throat: Edentulous. Oral mucosa dry-appearing. No obvious lesions in oropharynx. Neck: Neck supple, non-tender, no cervical lymphadenopathy. Cardiovascular: Normal rate and normal rhythm, no murmur, no JVD or carotid bruits. +S1/S2. Respiratory: Dry coughing intermittently during exam. Bilateral lungs difficult to ausculate clearly but seemingly free of crackles, rales, rhonchi, or wheezing. Respirations unlabored and no accessory muscle use. Gastrointestinal: Soft, nontender, non-distended, no palpable masses. No guarding or rebound tenderness. Peristalsis present. Extremities: Right big toe appears blackened and necrotic, some serosanguinous- appearing discharge towards the base of the hallux. Seems to have spread distally as of 05/08. No edema, no cyanosis, no clubbing. 2+ radial pulse bilaterally, 2+ posterior tibial pulse bilaterally. Neuro: No focal deficits observed. Conversant, moving all extremities. No overt cerebellar signs/incoordination. Psychiatric: Slow speech. Cooperative, appropriate affect. Objective Labs 05/10/25 05:00 05/10/25 05:00 Labs: Laboratory Results - last 24 hr 05/09/25 06:31 WBC 8.1 RBC 2.67 L Hgb 8.3 L D Hct 23.8 L MCV 89 MCH 31.1 MCHC 34.9 RDW Std Deviation 53.8 H Plt Count 283 D Neut % (Auto) 84 H Lymph % (Auto) [address] [place] % (Auto) 6 Eos % (Auto) 1 Baso % (Auto) 0 Neut # (Auto) 6.8 Lymph # (Auto) 0.[address] [place] # (Auto) 0.5 Eos # (Auto) 0.1 Baso # (Auto) 0.0 Immature Gran # (Auto) 0.06 H Absolute Nucleated RBC 0.00 Immature Gran % 1 H Nucleated RBC % 0 Sodium 127 L Potassium 3.7 D Chloride 96 L Carbon Dioxide 24.6 Anion Gap 6 L BUN 5 L Creatinine 0.5 L Estim Creat Clear Calc Not Performed. eGFR > 60 BUN/Creatinine Ratio 10 L Glucose 148 H Calculated Osmolality 255 L Calcium 7.2 L Corrected Calcium 8.3 L Total Bilirubin 0.5 AST 17 ALT 16 Alkaline Phosphatase 92 Total Protein 4.9 L Albumin 2.6 L Globulin 2.3 Albumin/Globulin Ratio 1.1 L Quality Measures Quality Measures none Advance care planning discussed with:: patient, spouse, child and sibling Assessment & Plan Assessment Current Active Medications: Generic Name Dose Route Start Last Admin Trade Name Freq PRN Reason Stop Dose Admin Acetaminophen 650 mg 04/30/25 16:45 05/09/25 05:50 Acetaminophen 325 Mg Tablet PO 05/30/25 16:44 650 mg Q6H PRN Administration PAIN SCALE 1-3 (mild Ascorbic Acid 500 mg 05/01/25 21:00 05/09/25 08:16 Ascorbic Acid 250 Mg Tablet PO 05/31/25 20:59 500 mg BID HUMBERTO Administration Bisacodyl 5 mg 05/03/25 09:00 05/09/25 08:17 Bisacodyl 5 Mg Tabec PO 06/02/25 08:59 5 mg QDAY HUMBERTO Administration Protocol Calcium Carbonate 600 mg 05/08/25 10:15 05/09/25 08:16 Calcium Carbonate 600 Mg Tablet PO 06/07/25 10:14 600 mg QDAY HUMBERTO Administration Finasteride 5 mg 05/05/25 09:00 05/09/25 08:17 Finasteride 5 Mg Tablet PO 06/04/25 08:59 5 mg QDAY HUMBERTO Administration Heparin Sodium (Porcine) 5,000 unit 05/05/25 09:00 Heparin Sod Inj 5000 Unit/Ml Vial SC 05/19/25 08:59 On Hold: 05/05/25 09:00 Q12HR HUMBERTO Ondansetron HCl 4 mg 04/30/25 16:45 Ondansetron Inj 2 Mg/Ml Inj 2 Ml IVP 05/30/25 16:44 Q6H PRN NAUSEA OR VOMITING Protocol Sennosides 1 tab 05/03/25 09:00 05/09/25 08:17 Senna Tablet PO 06/02/25 08:59 1 tab QDAY HUMBERTO Administration Protocol Sodium Chloride 1 gm 05/08/25 09:00 05/09/25 08:16 Sodium Chloride 1 Gm Tablet PO 06/07/25 08:59 1 gm BID HUMBERTO Administration Tamsulosin HCl 0.4 mg 05/04/25 16:00 05/09/25 08:17 Tamsulosin Hcl 0.4 Mg Capsule PO 06/03/25 15:59 0.4 mg QDAY HUMBERTO Administration Zinc Gluconate 50 mg 05/01/25 15:15 05/09/25 08:16 Zinc Gluconate 50 Mg Tablet PO 05/31/25 15:14 50 mg QDAY HUMBERTO Administration Plan Patient is an 79-year-old male with a PMH of recurrent hyponatremia, hypertension, type 2 diabetes mellitus, coronary artery disease status post stents in July 2023, peripheral arterial disease, and BPH who presented on 04/30/2025 after he was told to do so when his outpatient labs showed severe hypoosmolar hyponatremia. Patient was admitted for the work-up and management of severe hypo-osmolar hyponatremia without symptoms. #Acute on chronic hyponatremia, improved #H/O SIADH/chronic hyponatremia, on salt tablets #2/2 drug non-compliance 04/30 admission sodium 118 at around 14:30 (calculated osmolality 236, euvolemic-appearing) Per , patient is released from rehab 2 weeks before the day of admission and not sure if he received salt tablets in the facility and missed some doses after coming to home It is unknown where the sodium is going as patient's urine electrolytes earlier in his course were measured to be within normal limits, seemingly making SIADH less likely Dx: -04/30 urine random electrolytes showed creatinine 41, sodium 48.2, potassium 36, chloride 74.0 Rx: -Nephrology (Dr. Marquez) consulted, appreciate recommendations -Sodium down-trended from 127 to 126, despite being on salt tablet 1 tab PO QD, will continue to monitor -Salt tablets 1 g PO BID #Necrotic hallux of right foot #Osteomyelitis of right distal hallux #Hx of peripheral arterial disease #Hx of type 2 diabetes mellitus On physical exam, the big toe of patient's right toe is noted to be blackened and necrotic-appearing (no drainage) and patient is unsure when or how it became as such Likely 2/2 significant peripheral arterial disease as patient's hemoglobin A1c this admission was not that high Seems worsened as of 05/08 physical exam with some proximal spread of gangrenous area Dx: -04/30 toe XR ordered, showed osteomyelitis -Ordered hemoglobin A1c, 6.7 Rx: -General Surgery (Dr. Quispe), consulted - recommended no surgical intervention initially -Re-consult Dr. Quispe due to 05/08 physical exam findings, awaiting recommendations -Wound care referral -PICC line placed as of 05/02 -Rocephin 2 g IV QD [04/30--] -Doxycycline 100mg twice daily [05/01--] -PT referral ordered #?Community-acquired pneumonia #Significant smoking Hx, [id number] 04/30 CXR showed interstitial densities throughout the lungs that were possibly suggestive of pneumonia During initial exam, patient was noted to have an intermittent dry cough but he did not present with leukocytosis or fever Per prior documentation, patient has smoked an average of 1 pack/day for 50-60 years Dx: -Coccidioides IgM antibody assay ordered, negative -COVID lab work-up ordered, negative Rx: -Rocephin 2 g IV QD [04/30--] -Doxycycline 100mg twice daily [05/01--] -Discontinued azithromycin 500 mg IV QD [04/30-05/01] #?Acute blood loss anemia #Internal hemorrhoids, grade IV, now banded 05/02 Hgb 8.5->6.7, unclear etiology but suspect blood loss from somewhere s/p pRBC transfusion x 1 on 05/02 Dx: -05/03 upper endoscopy completed, showed gastritis and erythema, no significant source of bleeding -05/08 colonoscopy completed, showed grade IV internal hemorrhoid without active bleeding that was ultimately banded (may have been the cause of 05/02 Hgb drop) -Iron panel and ferritin ordered, showed iron 67, TIBC 136, iron saturation 49, unsaturated iron binding 69, and ferritin 707 (not suggestive of LOTUS) -B12 and folate ordered, WNL Rx: -GI consulted, appreciate recommendations -Heparin 5K SC Q8HR held -Hemoglobin is stable as of now -Continue to monitor CBC, transfuse if Hgb<8 (s/p coronary stent placement) RRx: -Due to patient's non-compliance with adequate bowel prep (on jug after 3rd day), he had an NG tube placed on 05/06 and have GoLytely administered through it at a rate of 250 cc/hr with plans to titrate it up by 25 cc/hr to a goal rate of 300 cc/hr until his bowel movements are clear. -Head of bed elevation at 45 degrees ordered #Urinary retention #BPH Patient was having retained urine as seen on bladder scan likely 2/2 BPH Rx: -Flomax 0.4 mg PO QD -Finasteride 5 mg PO QD Hospital Management: Disposition: Tele Diet: Dysphagia 1 - Pureed GI Prophylaxis: None Bowel Prophylaxis: None DVT Prophylaxis: Heparin (HELD due to concern for acute blood loss anemia) CODE STATUS: Full Code Patient plan of care was discussed with the attending physician Dr. Mota and senior resident Dr. Heidy Cristina, DO PGY-1 Attending Provider Attestation/Addendum I have examined the patient, reviewed labs and imaging findings, discussed the case with the resident(s), and reviewed entered orders. I agree with the plan of care as outlined in this note, with these additional summaries/recommendations: Patient seen at bedside. No acute overnight events. Patient was noted to be coughing while eating breakfast. Patient was seen by speech therapy who recommends dysphagia 1 diet and thin liquids. Patient admitted for acute on chronic hyponatremia. Sodium originally improved although is now downtrending. Sodium down to 126 today. We will increase salt tablets to sodium chloride 1 g twice daily. If no improvement we will consult nephrology. Patient is status post colonoscopy overnight which revealed internal hemorrhoids which were banded. Continue IV antibiotics for osteomyelitis of right foot with necrotic hallux. General surgery following. Patient updated on the plan and in agreement. All questions answered to satisfaction. Please see residents note for additional details and management. Dr. Nakul MD
--- NOTE | 2025-05-09 15:28 | PD.SURPROG ---
Documentation for date of: 05/09/25 Subjective Subjective Brief History: 79M with HTN, DMII, CAD s/p stenting 2023, hyponatremia and PAD who was admitted 04/30 due to outpatient labs showing hyponatremia. Pt was also noted to have necrotic tissue of his right first toe and underwent xray showing osteomyelitis for which general surgery was consulted. 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 He reports mild pain to the toe but otherwise has no complaints PMH: HTN, DMII, CAD, PAD, hyponatremia PSHx: PCI 07/2023, cholecystectomy Meds: includes plavix Allergies: Naproxen Social hx: current smoker for >50 years Narrative: Pt reports stable pain in the toe with movement, WBC still normal and pt remaining afebrile Exam Vital Signs Temp Pulse Resp BP Pulse Ox O2 Del Method O2 Flow Rate 98.2 F 81 17 136/71 H 99 Room Air 3 05/09/25 12:00 05/09/25 12:00 05/09/25 12:00 05/09/25 12:00 05/09/25 12:00 05/09/25 12:00 05/07/25 18:30 Constitutional Constitutional: no acute distress Routine Respiratory Exam Respiratory: Present no resp distress Routine Extremities Exam Comments: right foot eschar with minimal purulent drainage, mild surrounding erythema, no fluctuance Results Results: Laboratory Laboratory results: results reviewed Assessment & Plan Plan 79M with HTN, DMII, CAD s/p stenting 2023, hyponatremia and PAD who was admitted 04/30 due to outpatient labs showing hyponatremia, additionally noted to have dry eschar of the right first toe and osteomyelitis on xray. Pt has remained hospitalized for management of hyponatremia as well as anemia, and I was reconsulted today due to concern for erythema of the toe. On exam I did note a small amount of pus but no fluctuance and WBC remains normal. As his Na is still low I do not plan on any surgical intervention for now but will apply topical santyl
[2025-05-09 16:00] VITALS: BP 137/64; PULSE 77; PULSE 78; RESP 18; TEMP 36.4; O2SAT 100
--- NOTE | 2025-05-09 17:17 | ESPR_ITS ---
Documentation for date of: 05/09/25 Subjective Subjective Interval history: Hemoglobin hematocrit 8.3 and 23.8 Exam Vital Signs Temp Pulse Resp BP Pulse Ox O2 Del Method O2 Flow Rate 97.6 F 77 18 137/64 H 100 Room Air 3 05/09/25 16:00 05/09/25 16:00 05/09/25 16:00 05/09/25 16:00 05/09/25 16:00 05/09/25 16:00 05/07/25 18:30 Objective Labs 05/09/25 06:31 05/09/25 06:31 Labs: Laboratory Results - last 24 hr 05/09/25 06:31 WBC 8.1 RBC 2.67 L Hgb 8.3 L D Hct 23.8 L MCV 89 MCH 31.1 MCHC 34.9 RDW Std Deviation 53.8 H Plt Count 283 D Neut % (Auto) 84 H Lymph % (Auto) 8 L [place] % (Auto) 6 Eos % (Auto) 1 Baso % (Auto) 0 Neut # (Auto) 6.8 Lymph # (Auto) 0.7 L [place] # (Auto) 0.5 Eos # (Auto) 0.1 Baso # (Auto) 0.0 Immature Gran # (Auto) 0.06 H Absolute Nucleated RBC 0.00 Immature Gran % 1 H Nucleated RBC % 0 Sodium 127 L Potassium 3.7 D Chloride 96 L Carbon Dioxide 24.6 Anion Gap 6 L BUN 5 L Creatinine 0.5 L Estim Creat Clear Calc Not Performed. eGFR > 60 BUN/Creatinine Ratio 10 L Glucose 148 H Calculated Osmolality 255 L Calcium 7.2 L Corrected Calcium 8.3 L Total Bilirubin 0.5 AST 17 ALT 16 Alkaline Phosphatase 92 Total Protein 4.9 L Albumin 2.6 L Globulin 2.3 Albumin/Globulin Ratio 1.1 L Impressions Impression: Status post banding of the internal hemorrhoids Gastritis Esophagitis Plan Continue current management Continue to monitor CBC Assessment & Plan A&P Narrative # Anemia multifactorial probably 1 component is anemia of blood loss with a significant drop in hemoglobin hematocrit without change in BUN/creatinine Suggestions iron panel with iron saturation B12 level folate level Reticulocyte count Stool for occult blood Will schedule upper endoscopy with possible therapeutic intervention under intravenous moderate sedation Other medical problems include Hyponatremia Coronary artery status post PCI Diabetes mellitus type 2 BPH Thank you very much for the opportunity to participate in the care of this patient Time Spent With Patient Time: Total time spent is greater than 50% in coordination of care (as documented) at patient's floor/unit and/or counseling patient:
[2025-05-09 20:00] VITALS: BP 129/71; PULSE 72; PULSE 79; RESP 18; TEMP 37.1; O2SAT 97
[2025-05-10] VITALS: BP 138/68; PULSE 71; PULSE 75; RESP 17; TEMP 36.8; O2SAT 99
[2025-05-10 04:00] VITALS: BP 129/70; PULSE 73; PULSE 74; RESP 17; TEMP 36.1; O2SAT 99
[2025-05-10 06:26] LABS: Basophils # (Auto) 0.0 Thou/mm3 (0.0-0.2); Basophils % (Auto) 1 % (0-2.5); Eosinophils # (Auto) 0.2 Thou/mm3 (0.0-0.5); Eosinophils % (Auto) 2 % (0-10); Hematocrit 22.4 % (41.0-53.0); Immature Granulocytes Auto 0.03 Thou/mm3 (0.00-0.00); Lymphocytes # (Auto) 1.1 Thou/mm3 (1.0-4.8); Lymphocytes % (Auto) 13 % (10-50); Mean Corpuscular HGB Conc 34.8 g/dl (31.0-37.0); Mean Corpuscular Hemoglobin 31.3 pg (25.0-35.0); Mean Corpuscular Volume 90 fL (80-100); Monocytes # (Auto) 0.5 Thou/mm3 (0.0-0.8); Monocytes % (Auto) 6 % (0-12); Neutrophils # (Auto) 6.5 Thou/mm3 (1.8-7.7); Neutrophils % (Auto) 78 % (37-80); Nucleated Red Blood Cell # 0.00 Thou/mm3 (0.00-0.00); Nucleated Red Blood Cell % 0 /100 WBC (0); Platelet Count 280 Thou/mm3 (140-440); RDW Standard Deviation 53.5 fL (35.1-43.9); Red Blood Count 2.49 Miln/mm3 (4.50-5.90); White Blood Count 8.3 Thou/mm3 (3.8-10.6)
[2025-05-10 06:27] LABS: Hemoglobin 7.8 g/dL (13.5-16.0)
[2025-05-10 06:53] LABS: Alanine Aminotransferase 17 U/L (10-49); Albumin, Serum 2.5 gm/dL (3.4-4.8); Albumin/Globulin Ratio 1.2 (1.2-2.2); Alkaline Phosphatase 90 U/L (46-116); Anion Gap 7 (7-16); Aspartate Amino Transferase 15 U/L (0-34); BUN/Creatinine Ratio 13 Ratio (12-20); Bilirubin,Total 0.6 mg/dL (0.3-1.2); Blood Urea Nitrogen < 5 mg/dL (9-23); Calcium 7.6 mg/dL (8.3-10.6); Calcium (Corrected) 8.8 mg/dL (8.5-10.1); Carbon Dioxide 24.8 mMol/L (20.0-31.0); Chloride 94 mMol/L (98-107); Creatinine (Component) 0.4 mg/dL (0.6-1.3); Estimated Creatinine Clearance 113.5 mL/min (>60); Globulin 2.1 gm/dL (2.3-3.5); Glucose 120 mg/dL (74-106); Osmolality,Calculated 251 (275-295); Potassium 3.5 mMol/L (3.4-5.1); Sodium 126 mMol/L (136-145); Total Protein 4.6 gm/dL (5.7-8.2); eGFR > 60 See Note
[2025-05-10 08:00] VITALS: BP 126/65; PULSE 78; PULSE 79; RESP 14; TEMP 36.6; O2SAT 100
[2025-05-10] MEDS: SODIUM CHLORIDE 1 GM TABLET PO ×2 (08:55→20:45)
[2025-05-10] MEDS: TAMSULOSIN HCL 0.4 MG CAPSULE PO (08:55)
[2025-05-10] MEDS: FINASTERIDE 5 MG TABLET PO (08:55)
[2025-05-10] MEDS: ZINC GLUCONATE 50 MG TABLET PO (08:55)
[2025-05-10] MEDS: ASCORBIC ACID 250 MG TABLET 500 MG PO ×2 (08:55→20:45)
[2025-05-10] MEDS: CALCIUM CARBONATE 600 MG TABLET PO (08:56)
[2025-05-10] MEDS: COLLAGENASE OINT 30 GM TUBE TOP (09:12)
--- NOTE | 2025-05-10 09:23 | PC.CC ---
Addendum entered by Magaly Sanchez RN 05/10/25 14:34: [facility] pharmacy has acceped and booked. They can deliver meds on Saturday 05/12. Informed [facility], waiting for their reconfirmation of SOC of 05/12 Addendum entered by Magaly Sanchez RN 05/10/25 13:43: received new HH orders for IV abx. Resent new HH orders to [facility]. Sent HH ref to infusion pharmacy. [facility] SOC of 05/12 will probably be change since we still need to establish Infusion pharmacy. Addendum entered by Magaly Sanchez RN 05/10/25 09:36: [facility] acceped and booked, SOC 05/12 Original Note: initial HH ref sent out, waiting for responses. Will need to send DC summary and instructions when available.
[2025-05-10] MEDS: cefTRIAXone 2 GM in SODIUM CHLORIDE 0.9% (Popper) 50 ML IV (10:17)
[2025-05-10] MEDS: DOXYCYCLINE INJ 100 MG in SODIUM CHLORIDE 0.9% (POP) 100 ML IV ×2 (10:18→20:45)
[2025-05-10 12:00] VITALS: BP 145/72; PULSE 71; PULSE 81; RESP 19; TEMP 36.3; O2SAT 100
--- NOTE | 2025-05-10 12:29 | PC.SS ---
SS was informed by Dr. Ellison that pt will need IV ABX with HH. SS updated [place] RN Carmelita, who stated original HH order was only wound and PT. New HH order needed to reflect IV ABX. HH will not be established over weekend. Therefore pt will not be able to DC until earliest Saturday 05/12. Dr. Mota updated
--- NOTE | 2025-05-10 14:45 | ESPR_ITS ---
Documentation for date of: 05/10/25 Subjective Subjective Interval history: No overnight events. Patient was examined at bedside; they appear A&Ox3 and in NAD. Vitals/labs today significant for Hgb 8.3->7.8, sodium 127->126, potassium 3.5. Physical exam was non-contributory. General Surgery (Dr. Quispe) evaluated patient again yesterday and does not believe patient requires any surgical intervention for his gangrenous right toe and chronic osteomyelitis at this time due to ongoing hyponatremia (chronic for the patient). Before he is discharged, patient will require set up with home health so that he may receive his Rocephin 2 g IV QD and doxycycline 100 mg IV BID in the outpatient setting until his last dose on 06/13/25. Exam Vital Signs Temp Pulse Resp BP Pulse Ox O2 Del Method O2 Flow Rate 97.4 F 71 19 145/72 H 100 Room Air 3 05/10/25 12:00 05/10/25 12:00 05/10/25 12:00 05/10/25 12:00 05/10/25 12:00 05/10/25 12:00 05/07/25 18:30 Narrative Exam General: A/O x2 thin, elderly male in no acute distress. Skin: Large ecchymoses of right arm. Warm, dry, intact, no obvious rash. Head: Normocephalic, atraumatic. Eyes: PERRL, EOMI. Anicteric, vision grossly intact. Ears: Presbycusis. No ear pain, no ear discharge. Nose: NG tube no longer in place. No nasal discharge. Mouth/Throat: Edentulous. Oral mucosa dry-appearing. No obvious lesions in oropharynx. Neck: Neck supple, non-tender, no cervical lymphadenopathy. Cardiovascular: Normal rate and normal rhythm, no murmur, no JVD or carotid bruits. +S1/S2. Respiratory: Dry coughing intermittently during exam. Bilateral lungs difficult to ausculate clearly but seemingly free of crackles, rales, rhonchi, or wheezing. Respirations unlabored and no accessory muscle use. Gastrointestinal: Soft, nontender, non-distended, no palpable masses. No guarding or rebound tenderness. Peristalsis present. Extremities: Right big toe appears blackened and necrotic, some serosanguinous- appearing discharge towards the base of the hallux. Seems to have spread distally as of 05/08. No edema, no cyanosis, no clubbing. 2+ radial pulse bilaterally, 2+ posterior tibial pulse bilaterally. Neuro: No focal deficits observed. Conversant, moving all extremities. No overt cerebellar signs/incoordination. Psychiatric: Slow speech. Cooperative, appropriate affect. Objective Labs 05/10/25 05:00 05/10/25 05:00 Labs: Laboratory Results - last 24 hr 05/10/25 05:00 WBC 8.3 RBC 2.49 L Hgb 7.8 L Hct 22.4 L MCV 90 MCH 31.3 MCHC 34.8 RDW Std Deviation 53.5 H Plt Count 280 Neut % (Auto) 78 Lymph % (Auto) 13 [place] % (Auto) 6 Eos % (Auto) 2 Baso % (Auto) 1 Neut # (Auto) 6.5 Lymph # (Auto) 1.1 [place] # (Auto) 0.5 Eos # (Auto) 0.2 Baso # (Auto) 0.0 Immature Gran # (Auto) 0.03 H Absolute Nucleated RBC 0.00 Immature Gran % 0 Nucleated RBC % 0 Sodium 126 L Potassium 3.5 Chloride 94 L Carbon Dioxide 24.8 Anion Gap 7 BUN < 5 L Creatinine 0.4 L Estim Creat Clear Calc 113.5 eGFR > 60 BUN/Creatinine Ratio 13 Glucose 120 H Calculated Osmolality 251 L Calcium 7.6 L Corrected Calcium 8.8 Total Bilirubin 0.6 AST 15 ALT 17 Alkaline Phosphatase 90 Total Protein 4.6 L Albumin 2.5 L Globulin 2.1 L Albumin/Globulin Ratio 1.2 Quality Measures Quality Measures none Advance care planning discussed with:: patient Assessment & Plan Assessment Current Active Medications: Generic Name Dose Route Start Last Admin Trade Name Freq PRN Reason Stop Dose Admin Acetaminophen 650 mg 04/30/25 16:45 05/09/25 05:50 Acetaminophen 325 Mg Tablet PO 05/30/25 16:44 650 mg Q6H PRN Administration PAIN SCALE 1-3 (mild Ascorbic Acid 500 mg 05/01/25 21:00 05/10/25 08:55 Ascorbic Acid 250 Mg Tablet PO 05/31/25 20:59 500 mg BID HUMBERTO Administration Bisacodyl 5 mg 05/03/25 09:00 05/10/25 08:55 Bisacodyl 5 Mg Tabec PO 06/02/25 08:59 5 mg QDAY HUMBERTO Administration Protocol Calcium Carbonate 600 mg 05/08/25 10:15 05/10/25 08:56 Calcium Carbonate 600 Mg Tablet PO 06/07/25 10:14 600 mg QDAY HUMBERTO Administration Collagenase 0 gm 05/10/25 09:00 05/10/25 09:12 Collagenase Oint 30 Gm Tube TOP 06/09/25 08:59 1 applicatio QDAY HUMBERTO Administration Finasteride 5 mg 05/05/25 09:00 05/10/25 08:55 Finasteride 5 Mg Tablet PO 06/04/25 08:59 5 mg QDAY HUMBERTO Administration Heparin Sodium (Porcine) 5,000 unit 05/05/25 09:00 Heparin Sod Inj 5000 Unit/Ml Vial SC 05/19/25 08:59 On Hold: 05/05/25 09:00 Q12HR HUMBERTO Ceftriaxone Sodium 2 gm/ 50 mls @ 100 mls/hr 05/10/25 09:33 05/10/25 10:17 Sodium Chloride IV 05/17/25 09:32 100 mls/hr QDAY HUMBERTO Administration Doxycycline Hyclate 100 mg/ 100 mls @ 100 mls/hr 05/10/25 09:45 05/10/25 10:18 Sodium Chloride IV 05/17/25 09:44 100 mls/hr BID HUMBERTO Administration Ondansetron HCl 4 mg 04/30/25 16:45 Ondansetron Inj 2 Mg/Ml Inj 2 Ml IVP 05/30/25 16:44 Q6H PRN NAUSEA OR VOMITING Protocol Sennosides 1 tab 05/03/25 09:00 05/10/25 08:55 Senna Tablet PO 06/02/25 08:59 1 tab QDAY HUMBERTO Administration Protocol Sodium Chloride 1 gm 05/08/25 09:00 05/10/25 08:55 Sodium Chloride 1 Gm Tablet PO 06/07/25 08:59 1 gm BID HUMBERTO Administration Tamsulosin HCl 0.4 mg 05/04/25 16:00 05/10/25 08:55 Tamsulosin Hcl 0.4 Mg Capsule PO 06/03/25 15:59 0.4 mg QDAY HUMBERTO Administration Zinc Gluconate 50 mg 05/01/25 15:15 05/10/25 08:55 Zinc Gluconate 50 Mg Tablet PO 05/31/25 15:14 50 mg QDAY HUMBERTO Administration Plan Patient is an 79-year-old male with a PMH of recurrent hyponatremia, hypertension, type 2 diabetes mellitus, coronary artery disease status post stents in July 2023, peripheral arterial disease, and BPH who presented on 04/30/2025 after he was told to do so when his outpatient labs showed severe hypoosmolar hyponatremia. Patient was admitted for the work-up and management of severe hypo-osmolar hyponatremia without symptoms. #Acute on chronic hyponatremia, improved #H/O SIADH/chronic hyponatremia, on salt tablets #2/2 drug non-compliance 04/30 admission sodium 118 at around 14:30 (calculated osmolality 236, euvolemic-appearing) Per , patient is released from rehab 2 weeks before the day of admission and not sure if he received salt tablets in the facility and missed some doses after coming to home It is unknown where the sodium is going as patient's urine electrolytes earlier in his course were measured to be within normal limits, seemingly making SIADH less likely Dx: -04/30 urine random electrolytes showed creatinine 41, sodium 48.2, potassium 36, chloride 74.0 Rx: -Nephrology (Dr. Marquez) consulted, appreciate recommendations -Sodium down-trended from 127 to 126, despite being on salt tablet 1 tab PO QD, will continue to monitor -Salt tablets 1 g PO BID #Necrotic hallux of right foot #Osteomyelitis of right distal hallux #Hx of peripheral arterial disease #Hx of type 2 diabetes mellitus On physical exam, the big toe of patient's right toe is noted to be blackened and necrotic-appearing (no drainage) and patient is unsure when or how it became as such Likely 2/2 significant peripheral arterial disease as patient's hemoglobin A1c this admission was not that high Seems worsened as of 05/08 physical exam with some proximal spread of gangrenous area Dx: -04/30 toe XR ordered, showed osteomyelitis -Ordered hemoglobin A1c, 6.7 Rx: -General Surgery (Dr. Quispe), consulted - recommended no surgical intervention initially -Re-consulted Dr. Quispe due to 05/08 physical exam findings, recommended no surgical intervention again due to ongoing hyponatremia and presumably lack of perceived acuity -Wound care referral -PICC line placed as of 05/02 -Rocephin 2 g IV QD [04/30/2025 - 06/13/2025] -Doxycycline 100 mg IV BID [04/30/2025 - 06/13/2025] -PT referral ordered #?Community-acquired pneumonia #Significant smoking Hx, [id number] 04/30 CXR showed interstitial densities throughout the lungs that were possibly suggestive of pneumonia During initial exam, patient was noted to have an intermittent dry cough but he did not present with leukocytosis or fever Per prior documentation, patient has smoked an average of 1 pack/day for 50-60 years Dx: -Coccidioides IgM antibody assay ordered, negative -COVID lab work-up ordered, negative Rx: -Rocephin 2 g IV QD [04/30/2025 - 06/13/2025] -Doxycycline 100 mg IV BID [04/30/2025 - 06/13/2025] -Discontinued azithromycin 500 mg IV QD [04/30/2025 - 05/01/2025] #?Acute blood loss anemia #Internal hemorrhoids, grade IV, now banded 05/02 Hgb 8.5->6.7, unclear etiology but suspect blood loss from somewhere s/p pRBC transfusion x 1 on 05/02 Dx: -05/03 upper endoscopy completed, showed gastritis and erythema, no significant source of bleeding -05/08 colonoscopy completed, showed grade IV internal hemorrhoid without active bleeding that was ultimately banded (may have been the cause of 05/02 Hgb drop) -Iron panel and ferritin ordered, showed iron 67, TIBC 136, iron saturation 49, unsaturated iron binding 69, and ferritin 707 (not suggestive of LOTUS) -B12 and folate ordered, WNL Rx: -GI consulted, appreciate recommendations -Heparin 5K SC Q8HR held -Hemoglobin is stable as of now -Continue to monitor CBC, transfuse if Hgb<8 (s/p coronary stent placement) RRx: -Due to patient's non-compliance with adequate bowel prep (on 1st jug after 3rd day), he had an NG tube placed on 05/06 and have GoLytely administered through it at a rate of 250 cc/hr with plans to titrate it up by 25 cc/hr to a goal rate of 300 cc/hr until his bowel movements are clear. -Head of bed elevation at 45 degrees ordered #Urinary retention #BPH Patient was having retained urine as seen on bladder scan likely 2/2 BPH Rx: -Flomax 0.4 mg PO QD -Finasteride 5 mg PO QD Hospital Management: Disposition: Med Surg Diet: Dysphagia 1 - Pureed GI Prophylaxis: None Bowel Prophylaxis: Senna DVT Prophylaxis: Heparin CODE STATUS: Full Code Patient plan of care was discussed with the attending physician Dr. Mota and senior resident Dr. Lyla Cristina, PGY-1 Attending Provider Attestation/Addendum I have examined the patient, reviewed labs and imaging findings, discussed the case with the resident(s), and reviewed entered orders. I agree with the plan of care as outlined in this note, with these additional summaries/recommendations: Patient seen at bedside. No acute overnight events. Patient is pending home health for extended course of IV abx for osteomyelitis before he can be safely discharged. Patient admitted for acute on chronic hyponatremia. Patients baseline sodium appears to trend between 126-130 which is our goal. Sodium down to 126 today. Continue BID salt tablets for known history of SIADH. Patient is status post colonoscopy which revealed internal hemorrhoids which were banded. Continue IV antibiotics for osteomyelitis of right foot with necrotic hallux. General surgery following. Patient updated on the plan and in agreement. All questions answered to satisfaction. Please see residents note for additional details and management. Dr. Nakul MD
[2025-05-10 16:00] VITALS: BP 126/65; PULSE 85; PULSE 92; RESP 20; TEMP 36.7; O2SAT 99
--- NOTE | 2025-05-10 17:58 | PC.NURSE ---
Pt pulled out own PICC line to [facility]. Minimal bleeding, insertion site assessed and covered with dressing. Dr. Cristina made aware. Plan to reinsert PICC line tomorrow.
--- NOTE | 2025-05-10 18:09 | PD.IMPROG ---
Documentation for date of: 05/10/25 Subjective Subjective Interval history: Patient evaluated Hemoglobin hematocrit 7.8 and 22.4 Colonoscopy showed internal hemorrhoids otherwise normal colonoscopy to cecum requiring banding of the internal hemorrhoids Upper endoscopy showed gastritis and esophagitis Exam Vital Signs Temp Pulse Resp BP Pulse Ox O2 Del Method O2 Flow Rate 98.0 F 85 20 126/65 99 Room Air 3 05/10/25 16:00 05/10/25 16:00 05/10/25 16:00 05/10/25 16:00 05/10/25 16:00 05/10/25 16:00 05/07/25 18:30 Objective Labs 05/10/25 05:00 05/10/25 05:00 Labs: Laboratory Results - last 24 hr 05/10/25 05:00 WBC 8.3 RBC 2.49 L Hgb 7.8 L Hct 22.4 L MCV 90 MCH 31.3 MCHC 34.8 RDW Std Deviation 53.5 H Plt Count 280 Neut % (Auto) 78 Lymph % (Auto) 13 [place] % (Auto) 6 Eos % (Auto) 2 Baso % (Auto) 1 Neut # (Auto) 6.5 Lymph # (Auto) 1.1 [place] # (Auto) 0.5 Eos # (Auto) 0.2 Baso # (Auto) 0.0 Immature Gran # (Auto) 0.03 H Absolute Nucleated RBC 0.00 Immature Gran % 0 Nucleated RBC % 0 Sodium 126 L Potassium 3.5 Chloride 94 L Carbon Dioxide 24.8 Anion Gap 7 BUN < 5 L Creatinine 0.4 L Estim Creat Clear Calc 113.5 eGFR > 60 BUN/Creatinine Ratio 13 Glucose 120 H Calculated Osmolality 251 L Calcium 7.6 L Corrected Calcium 8.8 Total Bilirubin 0.6 AST 15 ALT 17 Alkaline Phosphatase 90 Total Protein 4.6 L Albumin 2.5 L Globulin 2.1 L Albumin/Globulin Ratio 1.2 Impressions Impression: Large internal hemorrhoids status post banding of the internal hemorrhoids Gastritis Anemia blood loss Continue current management Assessment & Plan A&P Narrative # Anemia multifactorial probably 1 component is anemia of blood loss with a significant drop in hemoglobin hematocrit without change in BUN/creatinine Suggestions iron panel with iron saturation B12 level folate level Reticulocyte count Stool for occult blood Will schedule upper endoscopy with possible therapeutic intervention under intravenous moderate sedation Other medical problems include Hyponatremia Coronary artery status post PCI Diabetes mellitus type 2 BPH Thank you very much for the opportunity to participate in the care of this patient Time Spent With Patient Time: Total time spent is greater than 50% in coordination of care (as documented) at patient's floor/unit and/or counseling patient:
[2025-05-10 20:00] VITALS: BP 127/73; PULSE 84; PULSE 94; RESP 18; TEMP 36.2; O2SAT 100
[2025-05-10] MEDS: HEPARIN SOD INJ 5000 UNIT/ML VIAL SC (20:45)
[2025-05-11] VITALS: BP 113/74; PULSE 78; PULSE 84; RESP 17; TEMP 37.1; O2SAT 99
[2025-05-11 04:00] VITALS: BP 133/70; PULSE 72; PULSE 77; RESP 17; TEMP 37; O2SAT 99
[2025-05-11 06:00] VITALS: BMI 17.7
[2025-05-11 08:00] VITALS: BP 133/64; PULSE 77; PULSE 79; RESP 16; TEMP 36.4; O2SAT 99
[2025-05-11] MEDS: ASCORBIC ACID 250 MG TABLET 500 MG PO ×2 (08:03→20:13)
[2025-05-11] MEDS: SODIUM CHLORIDE 1 GM TABLET PO ×2 (08:03→20:13)
[2025-05-11] MEDS: FINASTERIDE 5 MG TABLET PO (08:03)
[2025-05-11] MEDS: TAMSULOSIN HCL 0.4 MG CAPSULE PO (08:03)
[2025-05-11] MEDS: CALCIUM CARBONATE 600 MG TABLET PO (08:04)
[2025-05-11] MEDS: ZINC GLUCONATE 50 MG TABLET PO (08:04)
[2025-05-11] MEDS: cefTRIAXone 2 GM in SODIUM CHLORIDE 0.9% (Popper) 50 ML IV (08:10)
[2025-05-11] MEDS: HEPARIN SOD INJ 5000 UNIT/ML VIAL SC ×2 (08:10→20:13)
[2025-05-11] MEDS: COLLAGENASE OINT 30 GM TUBE TOP (08:11)
[2025-05-11] MEDS: DOXYCYCLINE INJ 100 MG in SODIUM CHLORIDE 0.9% (POP) 100 ML IV ×2 (09:04→20:13)
[2025-05-11 10:08] LABS: Basophils # (Auto) 0.0 Thou/mm3 (0.0-0.2); Basophils % (Auto) 1 % (0-2.5); Eosinophils # (Auto) 0.1 Thou/mm3 (0.0-0.5); Eosinophils % (Auto) 1 % (0-10); Hematocrit 21.9 % (41.0-53.0); Immature Granulocytes Auto 0.04 Thou/mm3 (0.00-0.00); Lymphocytes # (Auto) 0.7 Thou/mm3 (1.0-4.8); Lymphocytes % (Auto) 11 % (10-50); Mean Corpuscular HGB Conc 34.2 g/dl (31.0-37.0); Mean Corpuscular Hemoglobin 31.8 pg (25.0-35.0); Mean Corpuscular Volume 93 fL (80-100); Monocytes # (Auto) 0.4 Thou/mm3 (0.0-0.8); Monocytes % (Auto) 5 % (0-12); Neutrophils # (Auto) 5.5 Thou/mm3 (1.8-7.7); Neutrophils % (Auto) 82 % (37-80); Nucleated Red Blood Cell # 0.00 Thou/mm3 (0.00-0.00); Nucleated Red Blood Cell % 0 /100 WBC (0); Platelet Count 245 Thou/mm3 (140-440); RDW Standard Deviation 55.9 fL (35.1-43.9); Red Blood Count 2.36 Miln/mm3 (4.50-5.90); White Blood Count 6.8 Thou/mm3 (3.8-10.6)
[2025-05-11 10:13] LABS: Hemoglobin 7.5 g/dL (13.5-16.0)
[2025-05-11 11:29] LABS: Anion Gap 7 (7-16); BUN/Creatinine Ratio 12 Ratio (12-20); Blood Urea Nitrogen 6 mg/dL (9-23); Calcium 6.9 mg/dL (8.3-10.6); Carbon Dioxide 23.9 mMol/L (20.0-31.0); Chloride 94 mMol/L (98-107); Creatinine (Component) 0.5 mg/dL (0.6-1.3); Estimated Creatinine Clearance 90.8 mL/min (>60); Glucose 218 mg/dL (74-106); Magnesium 1.0 mg/dL (1.6-2.6); Osmolality,Calculated 256 (275-295); Potassium 3.8 mMol/L (3.4-5.1); Sodium 125 mMol/L (136-145); eGFR > 60 See Note
[2025-05-11 12:00] VITALS: BP 124/65; PULSE 62; PULSE 72; RESP 18; TEMP 36.3; O2SAT 99
--- NOTE | 2025-05-11 14:34 | PD.RESPRO ---
Documentation for date of: 05/11/25 Subjective Subjective Interval history: Yesterday evening, patient apparently pulled out his PICC line.?Patient seen and examined at bedside this AM. When asked why, patient stated that he felt itchy. Patient will need replacement of PICC line for osteomyelitis treatment?of right toe. Placed order for IR replacement of PICC Saturday 05/12 morning, coagulation panel ordered. Per professor of social work home health IV antibiotics will be ready Monday, 04/13. Labs and vitals were reviewed.?Patient continues to be hyponatremic with sodium 125. Continue with salt tablets BID. Magnesium found to be low at 1.0 so repleted with 4 gm IV. Also given 20 mEq potassium. No further complaints at this time. Anticipate discharge with home health on 05/13. Review of systems otherwise negative except what is mentioned above. Exam Vital Signs Temp Pulse Resp BP Pulse Ox O2 Del Method O2 Flow Rate 97.3 F 62 18 124/65 99 Room Air 3 05/11/25 12:05/11/25 12:05/11/25 12:05/11/25 12:05/11/25 12:05/11/25 12:05/07/25 18:30 Narrative Exam General: A/O x2 thin, elderly male in no acute distress. Skin: Large ecchymoses of right arm. Warm, dry, intact, no obvious rash. Head: Normocephalic, atraumatic. Eyes: PERRL, EOMI. Anicteric, vision grossly intact. Ears: Presbycusis. No ear pain, no ear discharge. Nose: NG tube no longer in place. No nasal discharge. Mouth/Throat: Edentulous. Oral mucosa dry-appearing. No obvious lesions in oropharynx. Neck: Neck supple, non-tender, no cervical lymphadenopathy. Cardiovascular: Normal rate and normal rhythm, no murmur, no JVD or carotid bruits. +S1/S2. Respiratory: Dry coughing intermittently during exam. Bilateral lungs difficult to ausculate clearly but seemingly free of crackles, rales, rhonchi, or wheezing. Respirations unlabored and no accessory muscle use. Gastrointestinal: Soft, nontender, non-distended, no palpable masses. No guarding or rebound tenderness. Peristalsis present. Extremities: Right big toe appears blackened and necrotic, some serosanguinous-appearing discharge towards the base of the hallux. Seems to have spread distally as of 05/08. No edema, no cyanosis, no clubbing. 2+ radial pulse bilaterally, 2+ posterior tibial pulse bilaterally. Neuro: No focal deficits observed. Conversant, moving all extremities. No overt cerebellar signs/incoordination. Psychiatric: Slow speech. Cooperative, appropriate affect. Objective Labs 05/12/25 04:35 05/12/25 04:35 Labs: Laboratory Results - last 24 hr 05/11/25 09:38 WBC 6.8 RBC 2.36 L Hgb 7.5 L Hct 21.9 L* MCV 93 MCH 31.8 MCHC 34.2 RDW Std Deviation 55.9 H Plt Count 245 D Neut % (Auto) 82 H Lymph % (Auto) 11 [place] % (Auto) 5 Eos % (Auto) 1 Baso % (Auto) 1 Neut # (Auto) 5.5 Lymph # (Auto) 0.7 L [place] # (Auto) 0.4 Eos # (Auto) 0.1 Baso # (Auto) 0.0 Immature Gran # (Auto) 0.04 H Absolute Nucleated RBC 0.00 Immature Gran % 1 H Nucleated RBC % 0 Sodium 125 L Potassium 3.8 Chloride 94 L Carbon Dioxide 23.9 Anion Gap 7 BUN 6 L Creatinine 0.5 L Estim Creat Clear Calc 90.8 eGFR > 60 BUN/Creatinine Ratio 12 Glucose 218 H D Calculated Osmolality 256 L Calcium 6.9 L Magnesium 1.0 L Quality Measures Quality Measures none Advance care planning discussed with:: patient Assessment & Plan Assessment Current Active Medications: Generic Name Dose Route Start Last Admin Trade Name Kraigq PRN Reason Stop Dose Admin Acetaminophen 650 mg 04/30/25 16:45 05/09/25 05:50 Acetaminophen 325 Mg Tablet PO 05/30/25 16:44 650 mg Q6H PRN Administration PAIN SCALE 1-3 (mild Ascorbic Acid 500 mg 05/01/25 21:00 05/11/25 08:03 Ascorbic Acid 250 Mg Tablet PO 05/31/25 20:59 500 mg BID HUMBERTO Administration Bisacodyl 5 mg 05/03/25 09:00 05/11/25 08:03 Bisacodyl 5 Mg Tabec PO 06/02/25 08:59 5 mg QDAY HUMBERTO Administration Protocol Calcium Carbonate 600 mg 05/08/25 10:15 05/11/25 08:04 Calcium Carbonate 600 Mg Tablet PO 06/07/25 10:14 600 mg QDAY HUMBERTO Administration Collagenase 0 gm 05/10/25 09:00 05/11/25 08:11 Collagenase Oint 30 Gm Tube TOP 06/09/25 08:59 1 applicatio QDAY HUMBERTO Administration Finasteride 5 mg 05/05/25 09:00 05/11/25 08:03 Finasteride 5 Mg Tablet PO 06/04/25 08:59 5 mg QDAY HUMBERTO Administration Heparin Sodium (Porcine) 5,000 unit 05/05/25 09:00 05/11/25 08:10 Heparin Sod Inj 5000 Unit/Ml Vial SC 05/19/25 08:59 5,000 unit Q12HR HUMBERTO Administration Ceftriaxone Sodium 2 gm/ 50 mls @ 100 mls/hr 05/10/25 09:33 05/11/25 08:10 Sodium Chloride IV 05/17/25 09:32 100 mls/hr QDAY HUMBERTO Administration Doxycycline Hyclate 100 mg/ 100 mls @ 100 mls/hr 05/10/25 09:45 05/11/25 09:04 Sodium Chloride IV 05/17/25 09:44 100 mls/hr BID HUMBERTO Administration Magnesium Sulfate 4 gm in 50 mls @ 12.5 mls/hr 05/11/25 14:22 Magnesium Sulfate Ivpb IV 05/11/25 18:21 X1 ONE Ondansetron HCl 4 mg 04/30/25 16:45 Ondansetron Inj 2 Mg/Ml Inj 2 Ml IVP 05/30/25 16:44 Q6H PRN NAUSEA OR VOMITING Protocol Sennosides 1 tab 05/03/25 09:00 05/11/25 08:04 Senna Tablet PO 06/02/25 08:59 1 tab QDAY HUMBERTO Administration Protocol Sodium Chloride 1 gm 05/08/25 09:00 05/11/25 08:03 Sodium Chloride 1 Gm Tablet PO 06/07/25 08:59 1 gm BID HUMBERTO Administration Tamsulosin HCl 0.4 mg 05/04/25 16:00 05/11/25 08:03 Tamsulosin Hcl 0.4 Mg Capsule PO 06/03/25 15:59 0.4 mg QDAY HUMBERTO Administration Zinc Gluconate 50 mg 05/01/25 15:15 05/11/25 08:04 Zinc Gluconate 50 Mg Tablet PO 05/31/25 15:14 50 mg QDAY [facility] Administration Plan Patient is an 79-year-old male with a PMH of recurrent hyponatremia, hypertension, type 2 diabetes mellitus, coronary artery disease status post stents in July 2023, peripheral arterial disease, and BPH who presented on 04/30/2025 after he was told to do so when his outpatient labs showed severe hypoosmolar hyponatremia. Patient was admitted for the work-up and management of severe hypo-osmolar hyponatremia without symptoms. #Acute on chronic hyponatremia #H/O SIADH/chronic hyponatremia, on salt tablets #2/2 drug non-compliance 04/30 admission sodium 118 at around 14:30 (calculated osmolality 236, euvolemic-appearing) Per , patient is released from rehab 2 weeks before the day of admission and not sure if he received salt tablets in the facility and missed some doses after coming to home It is unknown where the sodium is going as patient's urine electrolytes earlier in his course were measured to be within normal limits, seemingly making SIADH less likely Dx: -04/30 urine random electrolytes showed creatinine 41, sodium 48.2, potassium 36, chloride 74.0 -Nephrology (Dr. Marquez) consulted and signed off Rx: -Salt tablets 1 g PO BID #Necrotic hallux of right foot #Osteomyelitis of right distal hallux #Hx of peripheral arterial disease #Hx of type 2 diabetes mellitus On physical exam, the big toe of patient's right toe is noted to be blackened and necrotic-appearing (no drainage) and patient is unsure when or how it became as such Likely 2/2 significant peripheral arterial disease as patient's hemoglobin A1c this admission was not that high Seems worsened as of 05/08 physical exam with some proximal spread of gangrenous area Dx: -04/30 toe XR ordered, showed osteomyelitis -Ordered hemoglobin A1c, 6.7 Rx: -General Surgery (Dr. Quispe), consulted - recommended no surgical intervention initially -Re-consulted Dr. Quispe due to 05/08 physical exam findings, recommended no surgical intervention again due lack of acuity -Wound care referral -PICC line placed as of 05/02, patient removed on 05/10 -Ordered PICC replacement for 05/12 -Rocephin 2 g IV QD [04/30/2025 - 06/13/2025] -Doxycycline 100 mg IV BID [04/30/2025 - 06/13/2025] #?Community-acquired pneumonia #Significant smoking Hx, [id number] 04/30 CXR showed interstitial densities throughout the lungs that were possibly suggestive of pneumonia During initial exam, patient was noted to have an intermittent dry cough but he did not present with leukocytosis or fever Per prior documentation, patient has smoked an average of 1 pack/day for 50-60 years Dx: -Coccidioides IgM antibody assay ordered, negative -COVID lab work-up ordered, negative Rx: -Rocephin 2 g IV QD [04/30/2025 - 06/13/2025] -Doxycycline 100 mg IV BID [04/30/2025 - 06/13/2025] -Discontinued azithromycin 500 mg IV QD [04/30/2025 - 05/01/2025] #?Acute blood loss anemia #Internal hemorrhoids, grade IV, now banded 05/02 Hgb 8.5->6.7, unclear etiology but suspect blood loss from somewhere s/p pRBC transfusion x 1 on 05/02 Dx: -05/03 upper endoscopy completed, showed gastritis and erythema, no significant source of bleeding -05/08 colonoscopy completed, showed grade IV internal hemorrhoid without active bleeding that was ultimately banded (may have been the cause of 05/02 Hgb drop) -Iron panel and ferritin ordered, showed iron 67, TIBC 136, iron saturation 49, unsaturated iron binding 69, and ferritin 707 (not suggestive of LOTUS) -B12 and folate ordered, WNL Rx: -GI consulted, appreciate recommendations -Heparin 5K SC Q8HR held -Hemoglobin is stable as of now -Continue to monitor CBC, transfuse if Hgb<8 (s/p coronary stent placement) RRx: -Due to patient's non-compliance with adequate bowel prep (on jug after 3rd day), he had an NG tube placed on 05/06 and have GoLytely administered through it at a rate of 250 cc/hr with plans to titrate it up by 25 cc/hr to a goal rate of 300 cc/hr until his bowel movements are clear. -Head of bed elevation at 45 degrees ordered #Hypomagnesemia Magnesium 1.0 on 05/11 -Repleted with 4 g IV -Ordered recheck #Urinary retention #BPH Patient was having retained urine as seen on bladder scan likely 2/2 BPH Rx: -Flomax 0.4 mg PO QD -Finasteride 5 mg PO QD Hospital Management: Disposition: Med Surg Diet: Dysphagia 1 - Pureed GI Prophylaxis: None Bowel Prophylaxis: Senna DVT Prophylaxis: Heparin CODE STATUS: Full Code Patient plan of care was discussed with the attending physician, Dr. Mota. Rosemary Moody, PGY-3 Attending Provider Attestation/Addendum I have examined the patient, reviewed labs and imaging findings, discussed the case with the resident(s), and reviewed entered orders. I agree with the plan of care as outlined in this note, with these additional summaries/recommendations: Patient seen at bedside. No acute overnight events. Patient unfortunately pulled out his PICC line yesterday because it makes him itchy. Patient was counseled extensively not to pull out his PICC line and patient showed understanding. Patient in agreement with replacement. PICC line ordered for tomorrow and INR. Patient is pending home health for extended course of IV abx for osteomyelitis before he can be safely discharged. Patient admitted for acute on chronic hyponatremia. Patients baseline sodium appears to trend between 126-130 which is our goal. Sodium down to 126 today. Continue BID salt tablets for known history of SIADH. Patient is status post colonoscopy which revealed internal hemorrhoids which were banded. Continue IV antibiotics for osteomyelitis of right foot with necrotic hallux. General surgery following. Patient updated on the plan and in agreement. All questions answered to satisfaction. Please see residents note for additional details and management. Dr. Nakul MD
[2025-05-11] MEDS: Magnesium Sulfate 4 GM Ivpb 4 GM/50 ML BAG IV (14:46)
[2025-05-11] MEDS: POTASSIUM CHLORIDE 10% 20 MEQ/15 ML UDC PO (14:53)
[2025-05-11 16:00] VITALS: BP 137/66; PULSE 80; PULSE 85; RESP 22; TEMP 36.4; O2SAT 99
--- NOTE | 2025-05-11 17:43 | ESPR_ITS ---
Documentation for date of: 05/11/25 Subjective Subjective Interval history: Patient evaluated Hemoglobin hematocrit 7.5 and 21.9 Exam Vital Signs Temp Pulse Resp BP Pulse Ox O2 Del Method O2 Flow Rate 97.6 F 85 22 H 137/66 H 99 Room Air 3 05/11/25 16:00 05/11/25 16:00 05/11/25 16:00 05/11/25 16:00 05/11/25 16:00 05/11/25 16:00 05/07/25 18:30 Objective Labs 05/11/25 09:38 05/11/25 09:38 Labs: Laboratory Results - last 24 hr 05/11/25 09:38 WBC 6.8 RBC 2.36 L Hgb 7.5 L Hct 21.9 L* MCV 93 MCH 31.8 MCHC 34.2 RDW Std Deviation 55.9 H Plt Count 245 D Neut % (Auto) 82 H Lymph % (Auto) 11 [facility] % (Auto) 5 Eos % (Auto) 1 Baso % (Auto) 1 Neut # (Auto) 5.5 Lymph # (Auto) 0.[address] [facility] # (Auto) 0.4 Eos # (Auto) 0.1 Baso # (Auto) 0.0 Immature Gran # (Auto) 0.04 H Absolute Nucleated RBC 0.00 Immature Gran % 1 H Nucleated RBC % 0 Sodium 125 L Potassium 3.8 Chloride 94 L Carbon Dioxide 23.9 Anion Gap 7 BUN 6 L Creatinine 0.5 L Estim Creat Clear Calc 90.8 eGFR > 60 BUN/Creatinine Ratio 12 Glucose 218 H D Calculated Osmolality 256 L Calcium 6.9 L Magnesium 1.0 L Impressions Impression: Anemia blood loss Relatively stable hemoglobin hematocrit Continue to monitor CBC Assessment & Plan A&P Narrative # Anemia multifactorial probably 1 component is anemia of blood loss with a significant drop in hemoglobin hematocrit without change in BUN/creatinine Suggestions iron panel with iron saturation B12 level folate level Reticulocyte count Stool for occult blood Will schedule upper endoscopy with possible therapeutic intervention under intravenous moderate sedation Other medical problems include Hyponatremia Coronary artery status post PCI Diabetes mellitus type 2 BPH Thank you very much for the opportunity to participate in the care of this patient Time Spent With Patient Time: Total time spent is greater than 50% in coordination of care (as documented) at patient's floor/unit and/or counseling patient:
[2025-05-11 20:00] VITALS: BP 119/62; PULSE 73; PULSE 83; RESP 17; TEMP 36.9; O2SAT 99
[2025-05-12] VITALS (12 sets, daily range): BP systolic 115–150; BP diastolic 55–76; PULSE 63–98; RESP 16–20; TEMP 36.1–36.8; O2SAT 98–100; BMI 17.7; BMI 12.0
[2025-05-12 05:52] LABS: Basophils # (Auto) 0.0 Thou/mm3 (0.0-0.2); Basophils % (Auto) 1 % (0-2.5); Eosinophils # (Auto) 0.1 Thou/mm3 (0.0-0.5); Eosinophils % (Auto) 2 % (0-10); Hematocrit 22.4 % (41.0-53.0); Immature Granulocytes Auto 0.04 Thou/mm3 (0.00-0.00); Lymphocytes # (Auto) 0.9 Thou/mm3 (1.0-4.8); Lymphocytes % (Auto) 12 % (10-50); Mean Corpuscular HGB Conc 34.4 g/dl (31.0-37.0); Mean Corpuscular Hemoglobin 31.7 pg (25.0-35.0); Mean Corpuscular Volume 92 fL (80-100); Monocytes # (Auto) 0.5 Thou/mm3 (0.0-0.8); Monocytes % (Auto) 6 % (0-12); Neutrophils # (Auto) 6.3 Thou/mm3 (1.8-7.7); Neutrophils % (Auto) 80 % (37-80); Nucleated Red Blood Cell # 0.00 Thou/mm3 (0.00-0.00); Nucleated Red Blood Cell % 0 /100 WBC (0); Platelet Count 261 Thou/mm3 (140-440); RDW Standard Deviation 54.7 fL (35.1-43.9); Red Blood Count 2.43 Miln/mm3 (4.50-5.90); White Blood Count 7.9 Thou/mm3 (3.8-10.6)
[2025-05-12 06:06] LABS: INR 1.1 (0.9-1.3); Partial Thromboplastin Time 32.0 Seconds (22.0-36.0); Prothrombin Time 11.4 Seconds (9.0-12.2)
[2025-05-12 06:07] LABS: Hemoglobin 7.7 g/dL (13.5-16.0)
[2025-05-12 06:25] LABS: Anion Gap 7 (7-16); BUN/Creatinine Ratio 12 Ratio (12-20); Blood Urea Nitrogen 7 mg/dL (9-23); Calcium 7.4 mg/dL (8.3-10.6); Carbon Dioxide 24.5 mMol/L (20.0-31.0); Chloride 93 mMol/L (98-107); Creatinine (Component) 0.6 mg/dL (0.6-1.3); Estimated Creatinine Clearance 75.6 mL/min (>60); Glucose 148 mg/dL (74-106); Magnesium 1.4 mg/dL (1.6-2.6); Osmolality,Calculated 250 (275-295); Phosphorous 2.8 mg/dL (2.4-5.1); Potassium 4.1 mMol/L (3.4-5.1); Sodium 124 mMol/L (136-145); eGFR > 60 See Note
--- NOTE | 2025-05-12 07:58 | ESPR_ITS ---
Documentation for date of: 05/12/25 Subjective Subjective Interval history: Patient seen today at the bedside found awake, alert, orientedx2. No overnight events reported. Vitals and labs reviewed. Sodium continues to drop increase salt tablets to 1 g 3 times daily and started on fluid restriction 1500 Exam Vital Signs Temp Pulse Resp BP Pulse Ox O2 Del Method O2 Flow Rate 97.7 F 98 19 150/76 H 99 Room Air 3 05/12/25 07:27 05/12/25 07:27 05/12/25 07:27 05/12/25 07:27 05/12/25 04:00 05/12/25 04:00 05/07/25 18:30 Narrative Exam General: A/O x2 thin, elderly male in no acute distress. Skin: Large ecchymoses of right arm. Warm, dry, intact, no obvious rash. Head: Normocephalic, atraumatic. Eyes: PERRL, EOMI. Anicteric, vision grossly intact. Ears: Presbycusis. No ear pain, no ear discharge. Nose: NG tube no longer in place. No nasal discharge. Mouth/Throat: Edentulous. Oral mucosa dry-appearing. No obvious lesions in oropharynx. Neck: Neck supple, non-tender, no cervical lymphadenopathy. Cardiovascular: Normal rate and normal rhythm, no murmur, no JVD or carotid bruits. +S1/S2. Respiratory: Dry coughing intermittently during exam. Bilateral lungs difficult to ausculate clearly but seemingly free of crackles, rales, rhonchi, or wheezing. Respirations unlabored and no accessory muscle use. Gastrointestinal: Soft, nontender, non-distended, no palpable masses. No guarding or rebound tenderness. Peristalsis present. Extremities: Right big toe appears blackened and necrotic, some serosanguinous- appearing discharge towards the base of the hallux. Seems to have spread distally as of 05/08. No edema, no cyanosis, no clubbing. 2+ radial pulse bilaterally, 2+ posterior tibial pulse bilaterally. Neuro: No focal deficits observed. Conversant, moving all extremities. No overt cerebellar signs/incoordination. Psychiatric: Slow speech. Cooperative, appropriate affect. Objective Labs 05/14/25 07:26 05/14/25 07:26 Labs: Laboratory Results - last 24 hr 05/11/25 05/12/25 09:38 04:35 WBC 6.8 7.9 RBC 2.36 L 2.43 L Hgb 7.5 L 7.7 L Hct 21.9 L* 22.4 L MCV 93 92 MCH 31.8 31.7 MCHC 34.2 34.4 RDW Std Deviation 55.9 H 54.7 H Plt Count 245 D 261 Neut % (Auto) 82 H 80 Lymph % (Auto) 11 12 [place] % (Auto) 5 6 Eos % (Auto) 1 2 Baso % (Auto) 1 1 Neut # (Auto) 5.5 6.3 Lymph # (Auto) 0.7 L 0.9 L [place] # (Auto) 0.4 0.5 Eos # (Auto) 0.1 0.1 Baso # (Auto) 0.0 0.0 Immature Gran # (Auto) 0.04 H 0.04 H Absolute Nucleated RBC 0.00 0.00 Immature Gran % 1 H 1 H Nucleated RBC % 0 0 PT 11.4 INR 1.1 APTT 32.0 Sodium 125 L 124 L Potassium 3.8 4.1 Chloride 94 L 93 L Carbon Dioxide 23.9 24.5 Anion Gap 7 7 BUN 6 L 7 L Creatinine 0.5 L 0.6 Estim Creat Clear Calc 90.8 75.6 eGFR > 60 > 60 BUN/Creatinine Ratio 12 12 Glucose 218 H D 148 H D Calculated Osmolality 256 L 250 L Calcium 6.9 L 7.4 L Phosphorus 2.8 Magnesium 1.0 L 1.4 L Quality Measures Quality Measures none Advance care planning discussed with:: patient Assessment & Plan Assessment Current Active Medications: Generic Name Dose Route Start Last Admin Trade Name Freq PRN Reason Stop Dose Admin Acetaminophen 650 mg 04/30/25 16:45 05/09/25 05:50 Acetaminophen 325 Mg Tablet PO 05/30/25 16:44 650 mg Q6H PRN Administration PAIN SCALE 1-3 (mild Ascorbic Acid 500 mg 05/01/25 21:00 05/11/25 20:13 Ascorbic Acid 250 Mg Tablet PO 05/31/25 20:59 500 mg BID HUMBERTO Administration Bisacodyl 5 mg 05/03/25 09:00 05/11/25 08:03 Bisacodyl 5 Mg Tabec PO 06/02/25 08:59 5 mg QDAY HUMBERTO Administration Protocol Calcium Carbonate 600 mg 05/08/25 10:15 05/11/25 08:04 Calcium Carbonate 600 Mg Tablet PO 06/07/25 10:14 600 mg QDAY HUMBERTO Administration Collagenase 0 gm 05/10/25 09:00 05/11/25 08:11 Collagenase Oint 30 Gm Tube TOP 06/09/25 08:59 1 applicatio QDAY HUMBERTO Administration Finasteride 5 mg 05/05/25 09:00 05/11/25 08:03 Finasteride 5 Mg Tablet PO 06/04/25 08:59 5 mg QDAY HUMBERTO Administration Heparin Sodium (Porcine) 5,000 unit 05/05/25 09:00 05/11/25 20:13 Heparin Sod Inj 5000 Unit/Ml Vial SC 05/19/25 08:59 5,000 unit Q12HR HUMBERTO Administration Ceftriaxone Sodium 2 gm/ 50 mls @ 100 mls/hr 05/10/25 09:33 05/11/25 08:10 Sodium Chloride IV 05/17/25 09:32 100 mls/hr QDAY HUMBERTO Administration Doxycycline Hyclate 100 mg/ 100 mls @ 100 mls/hr 05/10/25 09:45 05/11/25 20:13 Sodium Chloride IV 05/17/25 09:44 100 mls/hr BID HUMBERTO Administration Magnesium Sulfate 4 gm in 50 mls @ 12.5 mls/hr 05/12/25 07:56 Magnesium Sulfate Ivpb IV 05/12/25 11:55 X1 ONE Ondansetron HCl 4 mg 04/30/25 16:45 Ondansetron Inj 2 Mg/Ml Inj 2 Ml IVP 05/30/25 16:44 Q6H PRN NAUSEA OR VOMITING Protocol Sennosides 1 tab 05/03/25 09:00 05/11/25 08:04 Senna Tablet PO 06/02/25 08:59 1 tab QDAY HUMBERTO Administration Protocol Sodium Chloride 1 gm 05/12/25 14:00 Sodium Chloride 1 Gm Tablet PO 06/11/25 13:59 TID HUMBERTO Tamsulosin HCl 0.4 mg 05/04/25 16:00 05/11/25 08:03 Tamsulosin Hcl 0.4 Mg Capsule PO 06/03/25 15:59 0.4 mg QDAY HUMBERTO Administration Zinc Gluconate 50 mg 05/01/25 15:15 05/11/25 08:04 Zinc Gluconate 50 Mg Tablet PO 05/31/25 15:14 50 mg QDAY HUMBERTO Administration Plan Patient is an 79-year-old male with a PMH of recurrent hyponatremia, hypertension, type 2 diabetes mellitus, coronary artery disease status post stents in July 2023, peripheral arterial disease, and BPH who presented on 04/30/2025 after he was told to do so when his outpatient labs showed severe hypoosmolar hyponatremia. Patient was admitted for the work-up and management of severe hypo-osmolar hyponatremia without symptoms. #Acute on chronic hyponatremia #H/O SIADH/chronic hyponatremia, on salt tablets #2/2 drug non-compliance 04/30 admission sodium 118 at around 14:30 (calculated osmolality 236, euvolemic-appearing) Per , patient is released from rehab 2 weeks before the day of admission and not sure if he received salt tablets in the facility and missed some doses after coming to home It is unknown where the sodium is going as patient's urine electrolytes earlier in his course were measured to be within normal limits, seemingly making SIADH less likely Urine random electrolytes showed creatinine 41, sodium 48.2, potassium 36, chloride 74.0 Current sodium 124-->121, asymptomatic at this time -Nephrology (Dr. Marquez) consulted, signed off, will reach out for posssible re- consultation -Salt tablets 1 g PO TID adjusted from BID -Fluid restriction 1500ml #Necrotic hallux of right foot #Osteomyelitis of right distal hallux #Hx of peripheral arterial disease #Hx of type 2 diabetes mellitus On physical exam, the big toe of patient's right toe is noted to be blackened and necrotic-appearing (no drainage) and patient is unsure when or how it became as such Likely 2/2 significant peripheral arterial disease as patient's hemoglobin A1c this admission was not that high Seems worsened as of 05/08 physical exam with some proximal spread of gangrenous area 04/30 toe XR ordered, showed osteomyelitis Ordered hemoglobin A1c, 6.7 -General Surgery (Dr. Quispe), consulted - recommended no surgical intervention initially -Re-consulted Dr. Quispe due to 05/08 physical exam findings, recommended no surgical intervention again due lack of acuity -Wound care referral -PICC line placed as of 05/12 -Rocephin 2 g IV qday [04/30/2025 - 06/13/2025] -Doxycycline 100 mg IV BID [04/30/2025 - 06/13/2025] #?Community-acquired pneumonia #[employer] use, [id number] 04/30 CXR showed interstitial densities throughout the lungs that were possibly suggestive of pneumonia During initial exam, patient was noted to have an intermittent dry cough but he did not present with leukocytosis or fever Per prior documentation, patient has smoked an average of 1 pack/day for 50-60 years Cocci IgM negative -COVID lab work-up ordered, negative - on Abx as above for osteomyelitis but appropiately covered for PNA, in addition completed Azithromycin course #?Acute blood loss anemia-stable #Internal hemorrhoids, grade IVs/p banding 05/02 Hgb 8.5->6.7, unclear etiology but suspect blood loss from somewhere s/p pRBC transfusion x 1 on 05/02 05/03 upper endoscopy completed, showed gastritis and erythema, no significant source of bleeding 05/08 colonoscopy completed, showed grade IV internal hemorrhoid without active bleeding that was ultimately banded (may have been the cause of 05/02 Hgb drop) Iron panel and ferritin ordered, showed iron 67, TIBC 136, iron saturation 49, unsaturated iron binding 69, and ferritin 707 (not suggestive of LOTUS) B12 and folate ordered, WNL -GI consulted, appreciate recommendations -Hemoglobin is stable -Continue to monitor CBC, transfuse if Hgb<8 (s/p coronary stent placement) -Head of bed elevation at 45 degrees ordered #Hypomagnesemia-improving Magnesium 1.0 on 05/11 -Repleted with 4 g IV -Ordered recheck #Urinary retention #BPH Patient was having retained urine as seen on bladder scan likely 2/2 BPH -Flomax 0.4 mg PO QD -Finasteride 5 mg PO QD Hospital Management: Disposition: Med Surg Diet: Dysphagia 1 - Pureed GI Prophylaxis: None Bowel Prophylaxis: Senna DVT Prophylaxis: Heparin CODE STATUS: Full Code Case discussed with my attending Dr. Nakul Barton MD PGY-2 Attending Provider Attestation/Addendum I have examined the patient, reviewed labs and imaging findings, discussed the case with the resident(s), and reviewed entered orders. I agree with the plan of care as outlined in this note, with these additional summaries/recommendations: Patient seen at bedside. No acute overnight events. Patient unfortunately pulled out his PICC line yesterday and will go for PICC line placement today for an extended course of IV antibiotics for osteomyelitis. Sodium down to 124 today and salt tablets increased. We will repeat sodium this afternoon and if stable then patient may be discharged versus if sodium decreases then patient will remain hospitalized for further management of hyponatremia. Patient admitted for acute on chronic hyponatremia. Patients baseline sodium appears to trend between 126-130 which is our goal. Sodium down trended to 121 today. Patient is status post colonoscopy which revealed internal hemorrhoids which were banded. Continue IV antibiotics for osteomyelitis of right foot with necrotic hallux. General surgery following. Patient updated on the plan and in agreement. All questions answered to satisfaction. Please see residents note for additional details and management. Dr. Nakul MD
--- NOTE | 2025-05-12 08:00 | XR_ITS ---
Examination: Ultrasound-guided needle placement right brachial vein. Dual-lumen central line placement (PICC line). Fluoroscopy AP chest, portable, single view Exam date and time: May 12, 2025, 0943 hours INDICATIONS: Need for long-term intravenous antibiotic therapy for osteomyelitis A timeout was completed verifying correct patient, procedure, site, positioning Informed consent provided Technique: The patient's site was prepped and draped in sterile fashion. Maximum Sterile Barrier Technique used including cap, mask, sterile gown, sterile gloves, and sterile full body drape. If ultrasound technique used: sterile gel and sterile probe covers. Hand Hygiene performed using proper scrub, soap and water, or alcohol-based hand rub. Ultrasound utilized to confirm patency of the right brachial vein Utilizing ultrasonographic guidance successful 21-gauge needle puncture into the right brachial vein Ultrasound images recorded and stored. 5 cc 1% lidocaine administered for local anesthetic. Successful micropuncture with a 21-gauge needle is performed. 0.18 wire guide is then introduced into the SVC under fluoroscopic guidance. Dual-lumen catheter dilator is then introduced, followed by the catheter in the SVC and proper position under fluoroscopic guidance. Successful aspiration of blood and flushing with heparinized saline is then performed in the 2 venous limbs. The catheter sutured in place. Findings: Under fluoroscopy, the tip of the catheter is in good position in the vena cava. Portable chest x-ray, post line placement is ordered. Estimated blood loss 3 cc The patient tolerated the procedure well and was in stable and satisfactory condition at completion of the procedure Impression: Successful ultrasound-guided needle placement right brachial vein Successful placement of dual lumen central line, percutaneous Fluoroscopy 0.1-minute radiation dose 0.52 mGy 1 spot fluoroscopic chest film. AP chest completion procedure demonstrates satisfactory position central line. May use central line.
[2025-05-12] MEDS: Magnesium Sulfate 4 GM Ivpb 4 GM/50 ML BAG IV (08:12)
[2025-05-12] MEDS: DOXYCYCLINE INJ 100 MG in SODIUM CHLORIDE 0.9% (POP) 100 ML IV ×2 (08:12→22:20)
[2025-05-12] MEDS: FINASTERIDE 5 MG TABLET PO (08:13)
[2025-05-12] MEDS: TAMSULOSIN HCL 0.4 MG CAPSULE PO (08:13)
[2025-05-12] MEDS: CALCIUM CARBONATE 600 MG TABLET PO (08:13)
[2025-05-12] MEDS: ZINC GLUCONATE 50 MG TABLET PO (08:13)
[2025-05-12] MEDS: COLLAGENASE OINT 30 GM TUBE TOP (08:14)
[2025-05-12] MEDS: HEPARIN SOD LOCK SYR 100 UNIT/ML 500 UNIT IV (10:30)
[2025-05-12] MEDS: LIDOCAINE INJ PF 1% 30 ML VIAL EPID (10:31)
--- NOTE | 2025-05-12 10:32 | PC.SS ---
Rounding: Pt pending HH establishment for IV ABX, pt pulled out PICC over weekend. Pending reinsertion of PICC
--- NOTE | 2025-05-12 10:58 | PC.NURSE ---
patient transferred back to room via [facility]. allan shaffer and I assessed dressing and site.. site is soft, flat, nontender, and no signs of hematoma. dressing is clean dry and intact.
[2025-05-12] MEDS: cefTRIAXone 2 GM in SODIUM CHLORIDE 0.9% (Popper) 50 ML IV (12:13)
[2025-05-12 12:17] LABS: Sodium 121 mMol/L (136-145)
[2025-05-12] MEDS: SODIUM CHLORIDE 1 GM TABLET PO ×2 (13:48→22:24)
--- NOTE | 2025-05-12 13:59 | ESPR_ITS ---
Documentation for date of: 05/12/25 Subjective Subjective Interval history: Hemoglobin hematocrit stable at 7.7 and 22.4 Upper endoscopy showed gastritis Colonoscopy grade 4 large inflamed internal hemorrhoids requiring band ligation Exam Vital Signs Temp Pulse Resp BP Pulse Ox O2 Del Method O2 Flow Rate 98.1 F 64 16 138/70 H 100 Room Air 3 05/12/25 12:00 05/12/25 12:00 05/12/25 12:00 05/12/25 12:00 05/12/25 10:55 05/12/25 12:00 05/07/25 18:30 Objective Labs 05/12/25 04:35 05/12/25 11:50 Labs: Laboratory Results - last 24 hr 05/12/25 05/12/25 04:35 11:50 WBC 7.9 RBC 2.43 L Hgb 7.7 L Hct 22.4 L MCV 92 MCH 31.7 MCHC 34.4 RDW Std Deviation 54.7 H Plt Count 261 Neut % (Auto) 80 Lymph % (Auto) 12 [place] % (Auto) 6 Eos % (Auto) 2 Baso % (Auto) 1 Neut # (Auto) 6.3 Lymph # (Auto) 0.[address] [place] # (Auto) 0.5 Eos # (Auto) 0.1 Baso # (Auto) 0.0 Immature Gran # (Auto) 0.04 H Absolute Nucleated RBC 0.00 Immature Gran % 1 H Nucleated RBC % 0 PT 11.4 INR 1.1 APTT 32.0 Sodium 124 L 121 L Potassium 4.1 Chloride 93 L Carbon Dioxide 24.5 Anion Gap 7 BUN 7 L Creatinine 0.6 Estim Creat Clear Calc 75.6 eGFR > 60 BUN/Creatinine Ratio 12 Glucose 148 H D Calculated Osmolality 250 L Calcium 7.4 L Phosphorus 2.8 Magnesium 1.4 L Impressions Impression: Anemia blood loss Gastritis Status post band ligation of the large internal hemorrhoids Continue current management Assessment & Plan A&P Narrative # Anemia multifactorial probably 1 component is anemia of blood loss with a significant drop in hemoglobin hematocrit without change in BUN/creatinine Suggestions iron panel with iron saturation B12 level folate level Reticulocyte count Stool for occult blood Will schedule upper endoscopy with possible therapeutic intervention under intravenous moderate sedation Other medical problems include Hyponatremia Coronary artery status post PCI Diabetes mellitus type 2 BPH Thank you very much for the opportunity to participate in the care of this patient Time Spent With Patient Time: Total time spent is greater than 50% in coordination of care (as documented) at patient's floor/unit and/or counseling patient:
[2025-05-12 19:58] LABS: Sodium 121 mMol/L (136-145)
[2025-05-12] MEDS: ASCORBIC ACID 250 MG TABLET 500 MG PO (22:25)
[2025-05-12] MEDS: HEPARIN SOD INJ 5000 UNIT/ML VIAL SC (22:28)
[2025-05-13] VITALS (8 sets, daily range): BP systolic 125–149; BP diastolic 59–76; PULSE 65–87; RESP 16–19; TEMP 36.1–36.7; O2SAT 94–100; BMI 12.0
[2025-05-13 01:11] LABS: Sodium 122 mMol/L (136-145)
[2025-05-13] MEDS: ACETAMINOPHEN 325 MG TABLET 650 MG PO ×3 (05:21→21:10)
[2025-05-13] MEDS: SODIUM CHLORIDE 1 GM TABLET PO ×3 (05:21→21:10)
[2025-05-13 06:27] LABS: Basophils # (Auto) 0.0 Thou/mm3 (0.0-0.2); Basophils % (Auto) 1 % (0-2.5); Eosinophils # (Auto) 0.1 Thou/mm3 (0.0-0.5); Eosinophils % (Auto) 2 % (0-10); Hematocrit 21.7 % (41.0-53.0); Immature Granulocytes Auto 0.03 Thou/mm3 (0.00-0.00); Lymphocytes # (Auto) 0.9 Thou/mm3 (1.0-4.8); Lymphocytes % (Auto) 13 % (10-50); Mean Corpuscular HGB Conc 35.0 g/dl (31.0-37.0); Mean Corpuscular Hemoglobin 31.7 pg (25.0-35.0); Mean Corpuscular Volume 90 fL (80-100); Monocytes # (Auto) 0.5 Thou/mm3 (0.0-0.8); Monocytes % (Auto) 7 % (0-12); Neutrophils # (Auto) 5.1 Thou/mm3 (1.8-7.7); Neutrophils % (Auto) 77 % (37-80); Nucleated Red Blood Cell # 0.00 Thou/mm3 (0.00-0.00); Nucleated Red Blood Cell % 0 /100 WBC (0); Platelet Count 262 Thou/mm3 (140-440); RDW Standard Deviation 52.5 fL (35.1-43.9); Red Blood Count 2.40 Miln/mm3 (4.50-5.90); White Blood Count 6.7 Thou/mm3 (3.8-10.6)
[2025-05-13 06:55] LABS: Anion Gap 7 (7-16); BUN/Creatinine Ratio 12 Ratio (12-20); Blood Urea Nitrogen 6 mg/dL (9-23); Calcium 7.7 mg/dL (8.3-10.6); Carbon Dioxide 25.1 mMol/L (20.0-31.0); Chloride 92 mMol/L (98-107); Creatinine (Component) 0.5 mg/dL (0.6-1.3); Estimated Creatinine Clearance 90.8 mL/min (>60); Glucose 128 mg/dL (74-106); Magnesium 1.4 mg/dL (1.6-2.6); Osmolality,Calculated 249 (275-295); Phosphorous 3.0 mg/dL (2.4-5.1); Potassium 3.8 mMol/L (3.4-5.1); Sodium 124 mMol/L (136-145); eGFR > 60 See Note
[2025-05-13 07:59] LABS: Hemoglobin 7.6 g/dL (13.5-16.0)
--- NOTE | 2025-05-13 09:09 | PD.RESPRO ---
Documentation for date of: 05/13/25 Subjective Subjective Interval history: Interval history: Mr. Scott is a 79-year-old gentleman with a history of diabetes, hypertension, coronary artery disease status post stents, peripheral vascular disease, BPH, recurrent episodes of hyponatremia (supposedly on salt tablets-although recently discontinued per chart and salt tablets were not on her home medications) presented to the emergency department sent by primary care doctor as his sodium was very low. Patient was alert and awake. He was noted to be hypovolemic hyponatremia. 1 L normal saline was given and patient continued on a normal saline IV. Renal consultation requested for hyponatremia. Patient denies any nausea, vomiting. Denies any disorientation or no episodes of seizures. Home medications included Lipitor, Plavix, docusate, finasteride, metformin, metoprolol, multivitamin, Flomax, trazodone In the emergency department a blood pressure 136/79, heart rate 89 afebrile. CBC showed hemoglobin 10. Sodium 118, osmolality 236, Pro-Yousif 0.24, renal function normal. LFTs normal. Urinalysis shows trace bacteria. Urine sodium 48. Urine tox screen negative. Chest x-ray showed no CHF. Questionable pneumonia. Was given Rocephin in the ED and normal saline. Patient currently seen in telemetry. This morning his sodium slightly better at 122. Patient also noted to have right toe necrosis-Dr. Quispe was consulted. 05/02/2025: Patient currently seen in telemetry. Resting comfortably. Patient more alert and awake. For right toe necrosis Dr. Hitchcock recommended long-term antibiotics. Patient will be going for PICC line today. 05/03/2025: Patient seen and examined in telemetry this morning. Currently oriented to self only. Again no urine output noted to be charted. NA improved to 130 from 129 and osmolarity improved from 258-261. Continue sodium chloride tabs once daily, discontinue half-normal saline IV fluid. 05/04/2025: Patient seen and examined at bedside this morning. Currently only oriented to self, but does endorse right great toe pain. Again no urine output was noted to be charted, but patient's diapers were wet. Sodium currently 129 and OSM 257. Continue NaCl tabs once daily. Once primary team is ready, patient is cleared from nephrology standpoint for discharge. 05/05/2025: Patient seen and examined at bedside. Oriented to self, at baseline. No new complaints. Denies chest pain or SOB. Patient reports continued urine output, not being charted. Na 129 and continue salt tabs 1 g QD on outpatient. Patient is unable to recall how many salt tablets was previously taking before script reader discontinued. 05/06/2025: Patient seen and examined at bedside. Confused at baseline. Denies chest pain or SOB. Na 129, continue salt tabs 1 g QD. Nephrology will sign off as patient sodium is stable. 05/13/25: Nephrology was re-consulted due to sodium of 121 yesterday. Increased salt tablet from BID to TID and fluid restricted to 1500mL. Repeat sodium 124 this AM. Patient was seen and examined at bedside. Continues to be at mental baseline. Exam Vital Signs Temp Pulse Resp BP Pulse Ox O2 Del Method O2 Flow Rate 97.1 F 65 16 136/59 H 99 Room Air 3 05/13/25 08:00 05/13/25 08:00 05/13/25 08:00 05/13/25 08:00 05/13/25 08:00 05/13/25 08:00 05/07/25 18:30 Narrative Exam Physical Exam General: Awake and in no acute distress. Conversational and non-toxic appearing. HEENT: Normocephalic, atraumatic, mucous membranes moist. Heart: Regular rate and rhythm, normal S1 and S2, no murmurs. Lungs: Clear to auscultation with no wheezing or crackles. Abdomen: Soft, nondistended, nontender, positive bowel sounds. No guarding or rebound tenderness. Neurologic: Alert and oriented x2, no gross neurological deficit, and patient able to move all 4 extremities. Extremities: Dry necrosis of right big toe with some serosanguinous discharge at base of hallux. Erythema receded from initial borders however foot has worsening right nonpitting edema extending up to ankle. PICC line in right inner arm. Skin: No rash or ecchymoses. Objective Labs 05/13/25 05:35 05/14/25 00:40 Labs: Laboratory Results - last 24 hr 05/12/25 05/12/25 05/13/25 11:50 19:32 00:41 WBC RBC Hgb Hct MCV MCH MCHC RDW Std Deviation Plt Count Neut % (Auto) Lymph % (Auto) [place] % (Auto) Eos % (Auto) Baso % (Auto) Neut # (Auto) Lymph # (Auto) [place] # (Auto) Eos # (Auto) Baso # (Auto) Immature Gran # (Auto) Absolute Nucleated RBC Immature Gran % Nucleated RBC % Sodium 121 L 121 L 122 L Potassium Chloride Carbon Dioxide Anion Gap BUN Creatinine Estim Creat Clear Calc eGFR BUN/Creatinine Ratio Glucose Calculated Osmolality Calcium Phosphorus Magnesium 05/13/25 05:35 WBC 6.7 RBC 2.40 L Hgb 7.6 L Hct 21.7 L* MCV 90 MCH 31.7 MCHC 35.0 RDW Std Deviation 52.5 H Plt Count 262 Neut % (Auto) 77 Lymph % (Auto) 13 [place] % (Auto) 7 Eos % (Auto) 2 Baso % (Auto) 1 Neut # (Auto) 5.1 Lymph # (Auto) 0.9 L [place] # (Auto) 0.5 Eos # (Auto) 0.1 Baso # (Auto) 0.0 Immature Gran # (Auto) 0.03 H Absolute Nucleated RBC 0.00 Immature Gran % 0 Nucleated RBC % 0 Sodium 124 L Potassium 3.8 Chloride 92 L Carbon Dioxide 25.1 Anion Gap 7 BUN 6 L Creatinine 0.5 L Estim Creat Clear Calc 90.8 eGFR > 60 BUN/Creatinine Ratio 12 Glucose 128 H Calculated Osmolality 249 L Calcium 7.7 L Phosphorus 3.0 Magnesium 1.4 L Quality Measures Quality Measures none Advance care planning discussed with:: patient Assessment & Plan Assessment Current Active Medications: Generic Name Dose Route Start Last Admin Trade Name Freq PRN Reason Stop Dose Admin Acetaminophen 650 mg 04/30/25 16:45 05/13/25 05:21 Acetaminophen 325 Mg Tablet PO 05/30/25 16:44 650 mg Q6H PRN Administration PAIN SCALE 1-3 (mild Ascorbic Acid 500 mg 05/01/25 21:00 05/12/25 22:25 Ascorbic Acid 250 Mg Tablet PO 05/31/25 20:59 500 mg BID HUMBERTO Administration Bisacodyl 5 mg 05/03/25 09:00 05/12/25 08:13 Bisacodyl 5 Mg Tabec PO 06/02/25 08:59 5 mg QDAY HUMBERTO Administration Protocol Calcium Carbonate 600 mg 05/08/25 10:15 05/12/25 08:13 Calcium Carbonate 600 Mg Tablet PO 06/07/25 10:14 600 mg QDAY HUMBERTO Administration Collagenase 0 gm 05/10/25 09:00 05/12/25 08:14 Collagenase Oint 30 Gm Tube TOP 06/09/25 08:59 1 applicatio QDAY HUMBERTO Administration Finasteride 5 mg 05/05/25 09:00 05/12/25 08:13 Finasteride 5 Mg Tablet PO 06/04/25 08:59 5 mg QDAY HUMBERTO Administration Heparin Sodium (Porcine) 5,000 unit 05/05/25 09:00 05/12/25 22:28 Heparin Sod Inj 5000 Unit/Ml Vial SC 05/19/25 08:59 5,000 unit Q12HR HUMBERTO Administration Ceftriaxone Sodium 2 gm/ 50 mls @ 100 mls/hr 05/10/25 09:33 05/12/25 12:13 Sodium Chloride IV 05/17/25 09:32 100 mls/hr QDAY HUMBERTO Administration Doxycycline Hyclate 100 mg/ 100 mls @ 100 mls/hr 05/10/25 09:45 05/12/25 22:20 Sodium Chloride IV 05/17/25 09:44 100 mls/hr BID HUMBERTO Administration Ondansetron HCl 4 mg 04/30/25 16:45 Ondansetron Inj 2 Mg/Ml Inj 2 Ml IVP 05/30/25 16:44 Q6H PRN NAUSEA OR VOMITING Protocol Sennosides 1 tab 05/03/25 09:00 05/12/25 08:33 Senna Tablet PO 06/02/25 08:59 Not Given QDAY HUMBERTO Protocol Sodium Chloride 1 gm 05/12/25 14:00 05/13/25 05:21 Sodium Chloride 1 Gm Tablet PO 06/11/25 13:59 1 gm TID HUMBERTO Administration Tamsulosin HCl 0.4 mg 05/04/25 16:00 05/12/25 08:13 Tamsulosin Hcl 0.4 Mg Capsule PO 06/03/25 15:59 0.4 mg QDAY HUMBERTO Administration Zinc Gluconate 50 mg 05/01/25 15:15 05/12/25 08:13 Zinc Gluconate 50 Mg Tablet PO 05/31/25 15:14 50 mg QDAY HUMBERTO Administration Plan Patient is an 79-year-old male with a PMH of recurrent hyponatremia, hypertension, type 2 diabetes mellitus, coronary artery disease status post stents in July 2023, peripheral arterial disease, and BPH who presented on 04/30/2025 after he was told to do so when his outpatient labs showed severe hypoosmolar hyponatremia. Patient was admitted for the work-up and management of severe, asymptomatic hypo-osmolar hyponatremia. 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 - Per chart review, patient was having recurrent episodes of hyponatremia and was on salt tablet which was discontinued. - CAT scan done in December did not show any evidence of malignancy. - Continues to be asymptomatic on exam. Alert and awake, at baseline. No neurological deficits noted. Plan: ? Continue sodium chloride tabs 1g TID - Fluid restriction 1500 mL - Sodium checks q6hr ? Once patient is clinically stable, patient cleared for discharge from nephrology standpoint. Continue with sodium chloride tabs once daily as outpatient. Thank you for the opportunity to take part in the care of Mr. Scott, please do not hesitate to reach out if you have any questions or concerns. Patient plan of care was discussed with the attending physician, Dr. Marquez. Milena Sequeira DO, PGY-1 Attending Provider Attestation/Addendum Patient currently seen and examined with resident physician Dr. Sequeira. Note reviewed, agree with findings and recommendations. Patient currently seen in telemetry. Patient was reconsulted. Continues to have low sodium. Agree with the fluid restriction, salt tablets. Sodium -- 121-124 No mental status changes.
[2025-05-13] MEDS: HEPARIN SOD INJ 5000 UNIT/ML VIAL SC ×2 (09:48→21:03)
[2025-05-13] MEDS: ASCORBIC ACID 250 MG TABLET 500 MG PO ×2 (09:48→20:57)
[2025-05-13] MEDS: FINASTERIDE 5 MG TABLET PO (09:49)
[2025-05-13] MEDS: TAMSULOSIN HCL 0.4 MG CAPSULE PO (09:49)
[2025-05-13] MEDS: CALCIUM CARBONATE 600 MG TABLET PO (09:49)
[2025-05-13] MEDS: ZINC GLUCONATE 50 MG TABLET PO (09:49)
[2025-05-13] MEDS: cefTRIAXone 2 GM in SODIUM CHLORIDE 0.9% (Popper) 50 ML IV (09:50)
[2025-05-13] MEDS: COLLAGENASE OINT 30 GM TUBE TOP (10:00)
[2025-05-13] MEDS: DOXYCYCLINE INJ 100 MG in SODIUM CHLORIDE 0.9% (POP) 100 ML IV ×2 (10:27→20:57)
--- NOTE | 2025-05-13 13:08 | ESPR_ITS ---
<Statement entered by Donis Bains MD - 05/26/25 09:16> I reviewed above note and agree with findings and plans. I have also personally examined the patient with medicine team and went over assessment and plan with medical team including compliance intern and resident physician. Documentation for date of: 05/13/25 Subjective Subjective Interval history: Patient seen today at the bedside found awake, alert, at baseline mentation. No overnight events reported. Vital signs and labs reviewed. Sodium slowly improving after placing on fluid restriction 1500ml and salt tabs increased to 1g TID. will continues with serial sodium checks and possibly discharge in the next 24-48 hours. Exam Vital Signs Temp Pulse Resp BP Pulse Ox O2 Del Method O2 Flow Rate 97.0 F 68 19 149/69 H 100 Room Air 3 05/13/25 12:00 05/13/25 12:00 05/13/25 12:00 05/13/25 12:00 05/13/25 12:00 05/13/25 12:00 05/07/25 18:30 Narrative Exam Physical Exam GENERAL: NAD, AAOx2 at baseline HEENT: Moist mucosa. Eyes open, symmetrical, & clear CARDIO: Heart RRR, no obvious murmurs PULM: No noted coughing/dyspnea CTA B/L, no R/W/R GI: Abdomen soft, nondistended, no pain on palpation. BSx4 SKIN/MSK/EXT: Large ecchymoses of right arm, Right big toe appears blackened and necrotic, some serosanguinous-appearing discharge towards the base of the hallux. Seems to have spread distally as of 05/08, no pain on palpation. Pedal pulses present B/L NEURO: AAOx3, no focal neuro deficits, able to move all 4 extremities Objective Labs 05/13/25 05:35 05/13/25 12:45 Labs: Laboratory Results - last 24 hr 05/12/25 05/13/25 05/13/25 19:32 00:41 05:35 WBC 6.7 RBC 2.40 L Hgb 7.6 L Hct 21.7 L* MCV 90 MCH 31.7 MCHC 35.0 RDW Std Deviation 52.5 H Plt Count 262 Neut % (Auto) 77 Lymph % (Auto) 13 [place] % (Auto) 7 Eos % (Auto) 2 Baso % (Auto) 1 Neut # (Auto) 5.1 Lymph # (Auto) 0.9 L [place] # (Auto) 0.5 Eos # (Auto) 0.1 Baso # (Auto) 0.0 Immature Gran # (Auto) 0.03 H Absolute Nucleated RBC 0.00 Immature Gran % 0 Nucleated RBC % 0 Sodium 121 L 122 L 124 L Potassium 3.8 Chloride 92 L Carbon Dioxide 25.1 Anion Gap 7 BUN 6 L Creatinine 0.5 L Estim Creat Clear Calc 90.8 eGFR > 60 BUN/Creatinine Ratio 12 Glucose 128 H Calculated Osmolality 249 L Calcium 7.7 L Phosphorus 3.0 Magnesium 1.4 L Quality Measures Quality Measures none Advance care planning discussed with:: patient Assessment & Plan Assessment Current Active Medications: Generic Name Dose Route Start Last Admin Trade Name Freq PRN Reason Stop Dose Admin Acetaminophen 650 mg 04/30/25 16:45 05/13/25 05:21 Acetaminophen 325 Mg Tablet PO 05/30/25 16:44 650 mg Q6H PRN Administration PAIN SCALE 1-3 (mild Ascorbic Acid 500 mg 05/01/25 21:00 05/13/25 09:48 Ascorbic Acid 250 Mg Tablet PO 05/31/25 20:59 500 mg BID HUMBERTO Administration Bisacodyl 5 mg 05/03/25 09:00 05/13/25 09:49 Bisacodyl 5 Mg Tabec PO 06/02/25 08:59 5 mg QDAY HUMBERTO Administration Protocol Calcium Carbonate 600 mg 05/08/25 10:15 05/13/25 09:49 Calcium Carbonate 600 Mg Tablet PO 06/07/25 10:14 600 mg QDAY HUMBERTO Administration Collagenase 0 gm 05/10/25 09:00 05/13/25 10:00 Collagenase Oint 30 Gm Tube TOP 06/09/25 08:59 1 applicatio QDAY HUMBERTO Administration Finasteride 5 mg 05/05/25 09:00 05/13/25 09:49 Finasteride 5 Mg Tablet PO 06/04/25 08:59 5 mg QDAY HUMBERTO Administration Heparin Sodium (Porcine) 5,000 unit 05/05/25 09:00 05/13/25 09:48 Heparin Sod Inj 5000 Unit/Ml Vial SC 05/19/25 08:59 5,000 unit Q12HR HUMBERTO Administration Ceftriaxone Sodium 2 gm/ 50 mls @ 100 mls/hr 05/10/25 09:33 05/13/25 09:50 Sodium Chloride IV 05/17/25 09:32 100 mls/hr QDAY HUMBERTO Administration Doxycycline Hyclate 100 mg/ 100 mls @ 100 mls/hr 05/10/25 09:45 05/13/25 10:27 Sodium Chloride IV 05/17/25 09:44 100 mls/hr BID HUMBERTO Administration Ondansetron HCl 4 mg 04/30/25 16:45 Ondansetron Inj 2 Mg/Ml Inj 2 Ml IVP 05/30/25 16:44 Q6H PRN NAUSEA OR VOMITING Protocol Sennosides 1 tab 05/03/25 09:00 05/13/25 09:49 Senna Tablet PO 06/02/25 08:59 1 tab QDAY HUMBERTO Administration Protocol Sodium Chloride 1 gm 05/12/25 14:00 05/13/25 05:21 Sodium Chloride 1 Gm Tablet PO 06/11/25 13:59 1 gm TID HUMBERTO Administration Tamsulosin HCl 0.4 mg 05/04/25 16:00 05/13/25 09:49 Tamsulosin Hcl 0.4 Mg Capsule PO 06/03/25 15:59 0.4 mg QDAY HUMBERTO Administration Zinc Gluconate 50 mg 05/01/25 15:15 05/13/25 09:49 Zinc Gluconate 50 Mg Tablet PO 05/31/25 15:14 50 mg QDAY HUMBERTO Administration Plan Patient is an 79-year-old male with a PMH of recurrent hyponatremia, hypertension, type 2 diabetes mellitus, coronary artery disease status post stents in July 2023, peripheral arterial disease, and BPH who presented on 04/30/2025 after he was told to do so when his outpatient labs showed severe hypoosmolar hyponatremia. Patient was admitted for the work-up and management of severe hypo-osmolar hyponatremia without symptoms. #Acute on chronic hyponatremia #H/O SIADH/chronic hyponatremia, on salt tablets #2/2 drug non-compliance 04/30 admission sodium 118 at around 14:30 (calculated osmolality 236, euvolemic-appearing) Per , patient is released from rehab 2 weeks before the day of admission and not sure if he received salt tablets in the facility and missed some doses after coming to home It is unknown where the sodium is going as patient's urine electrolytes earlier in his course were measured to be within normal limits, seemingly making SIADH less likely Urine random electrolytes showed creatinine 41, sodium 48.2, potassium 36, chloride 74.0 Current sodium 124-->121--> 124, asymptomatic at this time -Nephrology (Dr. Marquez) consulted, signed off, will reach out for posssible re- consultation -Salt tablets 1 g PO TID -Fluid restriction 1500ml #Necrotic hallux of right foot #Osteomyelitis of right distal hallux #Hx of peripheral arterial disease #Hx of type 2 diabetes mellitus On physical exam, the big toe of patient's right toe is noted to be blackened and necrotic-appearing (no drainage) and patient is unsure when or how it became as such Likely 2/2 significant peripheral arterial disease as patient's hemoglobin A1c this admission was not that high Seems worsened as of 05/08 physical exam with some proximal spread of gangrenous area 04/30 toe XR ordered, showed osteomyelitis Ordered hemoglobin A1c, 6.7 -General Surgery (Dr. Quispe), consulted - recommended no surgical intervention initially -Re-consulted Dr. Quispe due to 05/08 physical exam findings, recommended no surgical intervention again due lack of acuity -Wound care referral -PICC line placed as of 05/12 -Rocephin 2 g IV qday [04/30/2025 - 06/13/2025] -Doxycycline 100 mg IV BID [04/30/2025 - 06/13/2025] #?Community-acquired pneumonia #Tobb[employer] use, [id number] 04/30 CXR showed interstitial densities throughout the lungs that were possibly suggestive of pneumonia During initial exam, patient was noted to have an intermittent dry cough but he did not present with leukocytosis or fever Per prior documentation, patient has smoked an average of 1 pack/day for 50-60 years Cocci IgM negative -COVID lab work-up ordered, negative - on Abx as above for osteomyelitis but appropiately covered for PNA, in addition completed Azithromycin course #?Acute blood loss anemia-stable #Internal hemorrhoids, grade IVs/p banding 05/02 Hgb 8.5->6.7, unclear etiology but suspect blood loss from somewhere s/p pRBC transfusion x 1 on 05/02 05/03 upper endoscopy completed, showed gastritis and erythema, no significant source of bleeding 05/08 colonoscopy completed, showed grade IV internal hemorrhoid without active bleeding that was ultimately banded (may have been the cause of 05/02 Hgb drop) Iron panel and ferritin ordered, showed iron 67, TIBC 136, iron saturation 49, unsaturated iron binding 69, and ferritin 707 (not suggestive of LOTUS) B12 and folate ordered, WNL -GI consulted, appreciate recommendations -Hemoglobin is stable -Continue to monitor CBC, transfuse if Hgb<8 (s/p coronary stent placement) -Head of bed elevation at 45 degrees ordered #Hypomagnesemia-improving Magnesium 1.0 on 05/11 -Repleted with 4 g IV -Ordered recheck #Urinary retention #BPH Patient was having retained urine as seen on bladder scan likely 2/2 BPH -Flomax 0.4 mg PO QD -Finasteride 5 mg PO QD Hospital Management: Disposition: Med Surg, possible dc in the next 24-48 hours Diet: Dysphagia 1 - Pureed GI Prophylaxis: None Bowel Prophylaxis: Senna DVT Prophylaxis: Heparin CODE STATUS: Full Code Case discussed with my attending Dr. Nara Barton MD PGY-2
[2025-05-13 13:24] LABS: Sodium 124 mMol/L (136-145)
[2025-05-13 18:41] LABS: Sodium 125 mMol/L (136-145)
--- NOTE | 2025-05-13 21:24 | ESPR_ITS ---
Documentation for date of: 05/13/25 Subjective Subjective Interval history: Patient evaluated status post band ligation of the large internal hemorrhoids Hemoglobin hematocrit 7.6 and 21.7 Exam Vital Signs Temp Pulse Resp BP Pulse Ox O2 Del Method O2 Flow Rate 98.0 F 81 16 134/68 H 94 L Room Air 3 05/13/25 20:00 05/13/25 20:00 05/13/25 20:00 05/13/25 20:00 05/13/25 20:00 05/13/25 20:00 05/07/25 18:30 Objective Labs 05/13/25 05:35 05/13/25 18:11 Labs: Laboratory Results - last 24 hr 05/13/25 05/13/25 05/13/25 00:41 05:35 12:45 WBC 6.7 RBC 2.40 L Hgb 7.6 L Hct 21.7 L* MCV 90 MCH 31.7 MCHC 35.0 RDW Std Deviation 52.5 H Plt Count 262 Neut % (Auto) 77 Lymph % (Auto) 13 [place] % (Auto) 7 Eos % (Auto) 2 Baso % (Auto) 1 Neut # (Auto) 5.1 Lymph # (Auto) 0.9 L [place] # (Auto) 0.5 Eos # (Auto) 0.1 Baso # (Auto) 0.0 Immature Gran # (Auto) 0.03 H Absolute Nucleated RBC 0.00 Immature Gran % 0 Nucleated RBC % 0 Sodium 122 L 124 L 124 L Potassium 3.8 Chloride 92 L Carbon Dioxide 25.1 Anion Gap 7 BUN 6 L Creatinine 0.5 L Estim Creat Clear Calc 90.8 eGFR > 60 BUN/Creatinine Ratio 12 Glucose 128 H Calculated Osmolality 249 L Calcium 7.7 L Phosphorus 3.0 Magnesium 1.4 L 05/13/25 18:11 WBC RBC Hgb Hct MCV MCH MCHC RDW Std Deviation Plt Count Neut % (Auto) Lymph % (Auto) [place] % (Auto) Eos % (Auto) Baso % (Auto) Neut # (Auto) Lymph # (Auto) [place] # (Auto) Eos # (Auto) Baso # (Auto) Immature Gran # (Auto) Absolute Nucleated RBC Immature Gran % Nucleated RBC % Sodium 125 L Potassium Chloride Carbon Dioxide Anion Gap BUN Creatinine Estim Creat Clear Calc eGFR BUN/Creatinine Ratio Glucose Calculated Osmolality Calcium Phosphorus Magnesium Impressions Impression: Large internal hemorrhoids requiring band ligation Gastritis Esophagitis Continue current management Assessment & Plan A&P Narrative # Anemia multifactorial probably 1 component is anemia of blood loss with a significant drop in hemoglobin hematocrit without change in BUN/creatinine Suggestions iron panel with iron saturation B12 level folate level Reticulocyte count Stool for occult blood Will schedule upper endoscopy with possible therapeutic intervention under intravenous moderate sedation Other medical problems include Hyponatremia Coronary artery status post PCI Diabetes mellitus type 2 BPH Thank you very much for the opportunity to participate in the care of this patient Time Spent With Patient Time: Total time spent is greater than 50% in coordination of care (as documented) at patient's floor/unit and/or counseling patient:
[2025-05-14] VITALS: BP 126/59; PULSE 76; RESP 16; TEMP 36.6; O2SAT 100
[2025-05-14 01:03] LABS: Sodium 125 mMol/L (136-145)
[2025-05-14 04:00] VITALS: BP 131/66; PULSE 73; PULSE 79; RESP 16; TEMP 36.6; O2SAT 96
--- NOTE | 2025-05-14 04:02 | PC.NURSE ---
[facility]14[facility]25 from 02:00am to 03:48am.
[2025-05-14] MEDS: SODIUM CHLORIDE 1 GM TABLET PO ×2 (05:26→13:22)
[2025-05-14 07:53] LABS: Basophils # (Auto) 0.1 Thou/mm3 (0.0-0.2); Basophils % (Auto) 1 % (0-2.5); Eosinophils # (Auto) 0.1 Thou/mm3 (0.0-0.5); Eosinophils % (Auto) 2 % (0-10); Hematocrit 20.2 % (41.0-53.0); Immature Granulocytes Auto 0.02 Thou/mm3 (0.00-0.00); Lymphocytes # (Auto) 0.8 Thou/mm3 (1.0-4.8); Lymphocytes % (Auto) 17 % (10-50); Mean Corpuscular HGB Conc 34.7 g/dl (31.0-37.0); Mean Corpuscular Hemoglobin 31.3 pg (25.0-35.0); Mean Corpuscular Volume 90 fL (80-100); Monocytes # (Auto) 0.3 Thou/mm3 (0.0-0.8); Monocytes % (Auto) 6 % (0-12); Neutrophils # (Auto) 3.7 Thou/mm3 (1.8-7.7); Neutrophils % (Auto) 74 % (37-80); Nucleated Red Blood Cell # 0.00 Thou/mm3 (0.00-0.00); Nucleated Red Blood Cell % 0 /100 WBC (0); Platelet Count 229 Thou/mm3 (140-440); RDW Standard Deviation 53.1 fL (35.1-43.9); Red Blood Count 2.24 Miln/mm3 (4.50-5.90); White Blood Count 5.0 Thou/mm3 (3.8-10.6)
[2025-05-14 07:57] LABS: Hemoglobin 7.0 g/dL (13.5-16.0)
[2025-05-14 08:00] VITALS: BP 133/81; PULSE 62; PULSE 80; RESP 20; TEMP 36.6; O2SAT 94
[2025-05-14] MEDS: DOXYCYCLINE INJ 100 MG in SODIUM CHLORIDE 0.9% (POP) 100 ML IV (08:04)
[2025-05-14] MEDS: cefTRIAXone 2 GM in SODIUM CHLORIDE 0.9% (Popper) 50 ML IV (08:04)
[2025-05-14] MEDS: HEPARIN SOD INJ 5000 UNIT/ML VIAL SC (08:05)
[2025-05-14] MEDS: ASCORBIC ACID 250 MG TABLET 500 MG PO (08:05)
[2025-05-14] MEDS: ZINC GLUCONATE 50 MG TABLET PO (08:05)
[2025-05-14] MEDS: CALCIUM CARBONATE 600 MG TABLET PO (08:06)
[2025-05-14] MEDS: TAMSULOSIN HCL 0.4 MG CAPSULE PO (08:06)
[2025-05-14] MEDS: FINASTERIDE 5 MG TABLET PO (08:06)
[2025-05-14 08:13] LABS: Anion Gap 6 (7-16); BUN/Creatinine Ratio 10 Ratio (12-20); Blood Urea Nitrogen 5 mg/dL (9-23); Calcium 7.7 mg/dL (8.3-10.6); Carbon Dioxide 24.4 mMol/L (20.0-31.0); Chloride 96 mMol/L (98-107); Creatinine (Component) 0.5 mg/dL (0.6-1.3); Estimated Creatinine Clearance 90.8 mL/min (>60); Glucose 124 mg/dL (74-106); Magnesium 1.3 mg/dL (1.6-2.6); Osmolality,Calculated 251 (275-295); Phosphorous 3.4 mg/dL (2.4-5.1); Potassium 3.9 mMol/L (3.4-5.1); Sodium 126 mMol/L (136-145); eGFR > 60 See Note
[2025-05-14] MEDS: COLLAGENASE OINT 30 GM TUBE TOP (08:22)
--- NOTE | 2025-05-14 09:08 | PD.RESPRO ---
Documentation for date of: 05/14/25 Subjective Subjective Interval history: Mr. Scott is an 79-year-old male with a history of diabetes, hypertension, coronary artery disease status post stents, peripheral vascular disease, BPH, recurrent episodes of hyponatremia (supposedly on salt tablets-although recently discontinued per chart and salt tablets were not on her home medications) presented to the emergency department sent by primary care doctor as his sodium was very low. Patient was alert and awake. He was noted to be hypovolemic hyponatremia. 1 L normal saline was given and patient continued on a normal saline IV. Renal consultation requested for hyponatremia. Patient denies any nausea, vomiting. Denies any disorientation or no episodes of seizures. Home medications included Lipitor, Plavix, docusate, finasteride, metformin, metoprolol, multivitamin, Flomax, trazodone In the emergency department a blood pressure 136/79, heart rate 89 afebrile. CBC showed hemoglobin 10. Sodium 118, osmolality 236, Pro-Yousif 0.24, renal function normal. LFTs normal. Urinalysis shows trace bacteria. Urine sodium 48. Urine tox screen negative. Chest x-ray showed no CHF. Questionable pneumonia. Was given Rocephin in the ED and normal saline. Patient currently seen in telemetry. This morning his sodium slightly better at 122. Patient also noted to have right toe necrosis-Dr. Quispe was consulted. 05/02/2025: Patient currently seen in telemetry. Resting comfortably. Patient more alert and awake. For right toe necrosis Dr. Hitchcock recommended long-term antibiotics. Patient will be going for PICC line today. 05/03/2025: Patient seen and examined in telemetry this morning. Currently oriented to self only. Again no urine output noted to be charted. NA improved to 130 from 129 and osmolarity improved from 258-261. Continue sodium chloride tabs once daily, discontinue half-normal saline IV fluid. 05/04/2025: Patient seen and examined at bedside this morning. Currently only oriented to self, but does endorse right great toe pain. Again no urine output was noted to be charted, but patient's diapers were wet. Sodium currently 129 and OSM 257. Continue NaCl tabs once daily. Once primary team is ready, patient is cleared from nephrology standpoint for discharge. 05/05/2025: Patient seen and examined at bedside. Oriented to self, at baseline. No new complaints. Denies chest pain or SOB. Patient reports continued urine output, not being charted. Na 129 and continue salt tabs 1 g QD on outpatient. Patient is unable to recall how many salt tablets was previously taking before hvac field service technician discontinued. 05/06/2025: Patient seen and examined at bedside. Confused at baseline. Denies chest pain or SOB. Na 129, continue salt tabs 1 g QD. Nephrology will sign off as patient sodium is stable. 05/13/25: Nephrology was re-consulted due to sodium of 121 yesterday. Increased salt tablet from BID to TID and fluid restricted to 1500mL. Repeat sodium 124 this AM. Patient was seen and examined at bedside. Continues to be at mental baseline. 05/14/25: Patient seen and examined at bedside. Sodium continues to slowly improve, 126 today. Continue current management. Exam Vital Signs Temp Pulse Resp BP Pulse Ox O2 Del Method O2 Flow Rate 98 F 79 16 131/66 H 96 Room Air 3 05/14/25 04:00 05/14/25 04:00 05/14/25 04:00 05/14/25 04:00 05/14/25 04:00 05/14/25 04:00 05/07/25 18:30 Narrative Exam Physical Exam General: Awake and in no acute distress. Conversational and non-toxic appearing. HEENT: Normocephalic, atraumatic, mucous membranes moist. Heart: Regular rate and rhythm, normal S1 and S2, no murmurs. Lungs: Clear to auscultation with no wheezing or crackles. Abdomen: Soft, nondistended, nontender, positive bowel sounds. No guarding or rebound tenderness. Neurologic: Alert and oriented x2, no gross neurological deficit, and patient able to move all 4 extremities. Extremities: Dry necrosis of right big toe with some serosanguinous discharge at base of hallux. Erythema receded from initial borders however foot has worsening right nonpitting edema extending up to ankle. PICC line in right inner arm. Skin: No rash or ecchymoses. Objective Labs 05/14/25 11:16 05/14/25 11:16 Labs: Laboratory Results - last 24 hr 05/13/25 05/13/25 05/14/25 12:45 18:11 00:40 WBC RBC Hgb Hct MCV MCH MCHC RDW Std Deviation Plt Count Neut % (Auto) Lymph % (Auto) [place] % (Auto) Eos % (Auto) Baso % (Auto) Neut # (Auto) Lymph # (Auto) [place] # (Auto) Eos # (Auto) Baso # (Auto) Immature Gran # (Auto) Absolute Nucleated RBC Immature Gran % Nucleated RBC % Sodium 124 L 125 L 125 L Potassium Chloride Carbon Dioxide Anion Gap BUN Creatinine Estim Creat Clear Calc eGFR BUN/Creatinine Ratio Glucose Calculated Osmolality Calcium Phosphorus Magnesium 05/14/25 07:26 WBC 5.0 RBC 2.24 L Hgb 7.0 L Hct 20.2 L* MCV 90 MCH 31.3 MCHC 34.7 RDW Std Deviation 53.1 H Plt Count 229 D Neut % (Auto) 74 Lymph % (Auto) 17 [place] % (Auto) 6 Eos % (Auto) 2 Baso % (Auto) 1 Neut # (Auto) 3.7 Lymph # (Auto) 0.8 L [place] # (Auto) 0.3 Eos # (Auto) 0.1 Baso # (Auto) 0.1 Immature Gran # (Auto) 0.02 H Absolute Nucleated RBC 0.00 Immature Gran % 0 Nucleated RBC % 0 Sodium 126 L Potassium 3.9 Chloride 96 L Carbon Dioxide 24.4 Anion Gap 6 L BUN 5 L Creatinine 0.5 L Estim Creat Clear Calc 90.8 eGFR > 60 BUN/Creatinine Ratio 10 L Glucose 124 H Calculated Osmolality 251 L Calcium 7.7 L Phosphorus 3.4 Magnesium 1.3 L Quality Measures Quality Measures none Advance care planning discussed with:: patient Assessment & Plan Assessment Current Active Medications: Generic Name Dose Route Start Last Admin Trade Name Kraigq PRN Reason Stop Dose Admin Acetaminophen 650 mg 04/30/25 16:45 05/13/25 21:10 Acetaminophen 325 Mg Tablet PO 05/30/25 16:44 650 mg Q6H PRN Administration PAIN SCALE 1-3 (mild Ascorbic Acid 500 mg 05/01/25 21:00 05/14/25 08:05 Ascorbic Acid 250 Mg Tablet PO 05/31/25 20:59 500 mg BID HUMBERTO Administration Bisacodyl 5 mg 05/03/25 09:00 05/14/25 08:06 Bisacodyl 5 Mg Tabec PO 06/02/25 08:59 5 mg QDAY HUMBERTO Administration Protocol Calcium Carbonate 600 mg 05/08/25 10:15 05/14/25 08:06 Calcium Carbonate 600 Mg Tablet PO 06/07/25 10:14 600 mg QDAY HUMBERTO Administration Collagenase 0 gm 05/10/25 09:00 05/14/25 08:22 Collagenase Oint 30 Gm Tube TOP 06/09/25 08:59 1 applicatio QDAY HUMBERTO Administration Finasteride 5 mg 05/05/25 09:00 05/14/25 08:06 Finasteride 5 Mg Tablet PO 06/04/25 08:59 5 mg QDAY HUMBERTO Administration Heparin Sodium (Porcine) 5,000 unit 05/05/25 09:00 05/14/25 08:05 Heparin Sod Inj 5000 Unit/Ml Vial SC 05/19/25 08:59 5,000 unit Q12HR HUMBERTO Administration Ceftriaxone Sodium 2 gm/ 50 mls @ 100 mls/hr 05/10/25 09:33 05/14/25 08:04 Sodium Chloride IV 05/17/25 09:32 100 mls/hr QDAY HUMBERTO Administration Doxycycline Hyclate 100 mg/ 100 mls @ 100 mls/hr 05/10/25 09:45 05/14/25 08:04 Sodium Chloride IV 05/17/25 09:44 100 mls/hr BID HUMBERTO Administration Magnesium Sulfate 4 gm in 50 mls @ 12.5 mls/hr 05/14/25 08:46 Magnesium Sulfate Ivpb IV 05/14/25 12:45 X1 ONE Ondansetron HCl 4 mg 04/30/25 16:45 Ondansetron Inj 2 Mg/Ml Inj 2 Ml IVP 05/30/25 16:44 Q6H PRN NAUSEA OR VOMITING Protocol Sennosides 1 tab 05/03/25 09:00 05/14/25 08:05 Senna Tablet PO 06/02/25 08:59 1 tab QDAY HUMBERTO Administration Protocol Sodium Chloride 1 gm 05/12/25 14:00 05/14/25 05:26 Sodium Chloride 1 Gm Tablet PO 06/11/25 13:59 1 gm TID HUMBERTO Administration Tamsulosin HCl 0.4 mg 05/04/25 16:00 05/14/25 08:06 Tamsulosin Hcl 0.4 Mg Capsule PO 06/03/25 15:59 0.4 mg QDAY HUMBERTO Administration Zinc Gluconate 50 mg 05/01/25 15:15 05/14/25 08:05 Zinc Gluconate 50 Mg Tablet PO 05/31/25 15:14 50 mg QDAY HUMBERTO Administration Plan Patient is an 79-year-old male with a PMH of recurrent hyponatremia, hypertension, type 2 diabetes mellitus, coronary artery disease status post stents in July 2023, peripheral arterial disease, and BPH who presented on 04/30/2025 after he was told to do so when his outpatient labs showed severe hypoosmolar hyponatremia. Patient was admitted for the work-up and management of severe, asymptomatic hypo-osmolar hyponatremia. 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 - Per chart review, patient was having recurrent episodes of hyponatremia and was on salt tablet which was discontinued. - CAT scan done in December did not show any evidence of malignancy. - Continues to be asymptomatic on exam. Alert and awake, at baseline. No neurological deficits noted. Plan: ? Sodium chloride tabs 1g TID - Fluid restriction 1500 mL - Sodium checks q6hr ? Once patient is clinically stable, patient cleared for discharge from nephrology standpoint. Continue with sodium chloride tabs once daily as outpatient. Thank you for the opportunity to take part in the care of Mr. Scott, please do not hesitate to reach out if you have any questions or concerns. Patient plan of care was discussed with the attending physician, Dr. Marquez. Milena Sequeira DO, PGY-1 Attending Provider Attestation/Addendum Patient currently seen and examined with resident physician Dr. Sequeira. Note reviewed, agree with findings and recommendations. Patient currently seen in medical floor. Sodium level seems to be acceptable. Continue with salt tablets and can be discharged.
[2025-05-14] MEDS: Magnesium Sulfate 4 GM Ivpb 4 GM/50 ML BAG IV (09:31)
--- NOTE | 2025-05-14 09:52 | PC.SS ---
Rounding: Pt was identified as a DC for today home with HH for IV ABX. SS reached out to DEEPIKA Manuel RN, to update her, per Mar she will reach out to agencies.
--- NOTE | 2025-05-14 11:20 | PD.IMPROG ---
Documentation for date of: 05/14/25 Exam Vital Signs Temp Pulse Resp BP Pulse Ox O2 Del Method O2 Flow Rate 97.9 F 80 20 133/81 H 94 L Room Air 3 05/14/25 08:00 05/14/25 08:00 05/14/25 08:00 05/14/25 08:00 05/14/25 08:00 05/14/25 08:00 05/07/25 18:30 Objective Labs 05/14/25 07:26 05/14/25 07:26 Labs: Laboratory Results - last 24 hr 05/13/25 05/13/25 05/14/25 12:45 18:11 00:40 WBC RBC Hgb Hct MCV MCH MCHC RDW Std Deviation Plt Count Neut % (Auto) Lymph % (Auto) [place] % (Auto) Eos % (Auto) Baso % (Auto) Neut # (Auto) Lymph # (Auto) [place] # (Auto) Eos # (Auto) Baso # (Auto) Immature Gran # (Auto) Absolute Nucleated RBC Immature Gran % Nucleated RBC % Sodium 124 L 125 L 125 L Potassium Chloride Carbon Dioxide Anion Gap BUN Creatinine Estim Creat Clear Calc eGFR BUN/Creatinine Ratio Glucose Calculated Osmolality Calcium Phosphorus Magnesium 05/14/25 07:26 WBC 5.0 RBC 2.24 L Hgb 7.0 L Hct 20.2 L* MCV 90 MCH 31.3 MCHC 34.7 RDW Std Deviation 53.1 H Plt Count 229 D Neut % (Auto) 74 Lymph % (Auto) 17 [place] % (Auto) 6 Eos % (Auto) 2 Baso % (Auto) 1 Neut # (Auto) 3.7 Lymph # (Auto) 0.8 L [place] # (Auto) 0.3 Eos # (Auto) 0.1 Baso # (Auto) 0.1 Immature Gran # (Auto) 0.02 H Absolute Nucleated RBC 0.00 Immature Gran % 0 Nucleated RBC % 0 Sodium 126 L Potassium 3.9 Chloride 96 L Carbon Dioxide 24.4 Anion Gap 6 L BUN 5 L Creatinine 0.5 L Estim Creat Clear Calc 90.8 eGFR > 60 BUN/Creatinine Ratio 10 L Glucose 124 H Calculated Osmolality 251 L Calcium 7.7 L Phosphorus 3.4 Magnesium 1.3 L Assessment & Plan A&P Narrative # Anemia multifactorial probably 1 component is anemia of blood loss with a significant drop in hemoglobin hematocrit without change in BUN/creatinine Suggestions iron panel with iron saturation B12 level folate level Reticulocyte count Stool for occult blood Will schedule upper endoscopy with possible therapeutic intervention under intravenous moderate sedation Other medical problems include Hyponatremia Coronary artery status post PCI Diabetes mellitus type 2 BPH Thank you very much for the opportunity to participate in the care of this patient Time Spent With Patient Time: Total time spent is greater than 50% in coordination of care (as documented) at patient's floor/unit and/or counseling patient:
[2025-05-14 11:24] LABS: Basophils # (Auto) 0.0 Thou/mm3 (0.0-0.2); Basophils % (Auto) 1 % (0-2.5); Eosinophils # (Auto) 0.1 Thou/mm3 (0.0-0.5); Eosinophils % (Auto) 2 % (0-10); Hematocrit 21.2 % (41.0-53.0); Immature Granulocytes Auto 0.02 Thou/mm3 (0.00-0.00); Lymphocytes # (Auto) 0.8 Thou/mm3 (1.0-4.8); Lymphocytes % (Auto) 16 % (10-50); Mean Corpuscular HGB Conc 34.4 g/dl (31.0-37.0); Mean Corpuscular Hemoglobin 31.6 pg (25.0-35.0); Mean Corpuscular Volume 92 fL (80-100); Monocytes # (Auto) 0.4 Thou/mm3 (0.0-0.8); Monocytes % (Auto) 7 % (0-12); Neutrophils # (Auto) 3.8 Thou/mm3 (1.8-7.7); Neutrophils % (Auto) 74 % (37-80); Nucleated Red Blood Cell # 0.00 Thou/mm3 (0.00-0.00); Nucleated Red Blood Cell % 0 /100 WBC (0); Platelet Count 220 Thou/mm3 (140-440); RDW Standard Deviation 54.1 fL (35.1-43.9); Red Blood Count 2.31 Miln/mm3 (4.50-5.90); White Blood Count 5.2 Thou/mm3 (3.8-10.6)
[2025-05-14 11:59] LABS: Hemoglobin 7.3 g/dL (13.5-16.0)
[2025-05-14 12:00] VITALS: BP 122/61; PULSE 71; PULSE 79; RESP 18; TEMP 36.4; O2SAT 100
--- NOTE | 2025-05-14 13:05 | PC.SS ---
SS attempted to set up transport via [facility], there system is currently down. Therefore SS utilized [facility] for transport for the pt home. ETA set for [id number]
[2025-05-14 13:07] LABS: Sodium 126 mMol/L (136-145)
--- NOTE | 2025-05-14 14:31 | ESDS_ITS ---
<Statement entered by Donis Bains MD - 05/26/25 09:17> I reviewed above note and agree with findings and plans. I have also personally examined the patient with medicine team and went over assessment and plan with medical team including undergraduate intern and resident physician. Planned Discharge Date 05/14/25 DS: Providers Provider Date of admission: 04/30/25 16:39 Primary care physician: Narciso Mancini DO Admitting Provider: Tarun Feliciano DO Attending Provider on Admission: Donis Bains MD Consults: 04/30/25 22:40 Referral Wound Care Routine Comment: 04/30/25 22:41 Referral Nutritional Services Routine Comment: 05/01/25 08:00 Consult to General Surgery Routine Comment: Necrotic R Toe Consulting Provider: Jenny Quispe Consult to Nephrology Routine Comment: severe hypo-osmolar hyponatremia Consulting Provider: Wally Marquez 05/01/25 13:12 Referral OP Wound Healing Dept Routine Comment: Instructions: Left great toe arterial ulcer 05/02/25 10:07 Consult to Gastroenterology Routine Comment: Consulting Provider: Christopher Lopez 05/08/25 10:27 Referral Speech Therapy Urgent Comment: 05/09/25 09:10 Referral Physical Therapy Routine Comment: Physician Instructions: 05/10/25 10:11 PT [Referral Physical Therapy] Routine Comment: Physician Instructions: Attending Provider on DC: Donis Bains MD Discharging Provider: Emil Barton MD Anticipated date of discharge: 05/14/25 DS: Diagnosis Problem List Completed Was Problem List Reviewed/Reconciled?: Yes Hospital Course Hospital Course Hospital course: 79-year-old male with a PMH of recurrent hyponatremia, hypertension, type 2 diabetes mellitus, coronary artery disease status post stents in July 2023, peripheral arterial disease, and BPH who presented on 04/30/2025 after he was told to do so when his outpatient labs showed severe hypoosmolar hyponatremia. Patient was admitted for the work-up and management of severe hypo-osmolar hyponatremia. During hospital stay patients sodium lvls were monitored was started on his home regimen of salt tablets. However sodium lvls continued to decrease and were increased to 3 times a day from 2 a day. Patients fluid were restricted as well and sodium lvls increased to appropiate levels. Aditionally patient has osteomyelitis of the right toe and was placed on a picc line to receive IV antibiotics for 6 weeks for treatment of osteomyelitis. At this time patient is medically stable for discharge. Discharge Recommendations: -Follow up with PCP within 1 week of discharge -We have discharged you with two medications 04/30-06/11, Ceftriaxone IV qday and Doxycycline 100mg BID -Continue rest of medications as previously prescribed -Return to the ED or call EMS if symptoms return and/or worsen. -Please take your sodium tablets 3 times a day to maintain your sodium levels adequately 1) Please follow up with Dr. Gimenez podiatry for right great toe wound. Keep site clean and dry swab with betadine at least once a day. 2) If unable to follow up with Dr. Gimenez, please follow up with [facility], [address] [place] [address]. Call [phone] for appointment. Should any symptoms recur or worsen patient is instructed to return to the ED. Problem List: #Acute on chronic hyponatremia #H/O SIADH/chronic hyponatremia, on salt tablets #2/2 drug non-compliance #Necrotic hallux of right foot #Osteomyelitis of right distal hallux #Hx of peripheral arterial disease #Hx of type 2 diabetes mellitus #?Community-acquired pneumonia #[employer] use, [id number] #?Acute blood loss anemia-stable #Internal hemorrhoids, grade IVs/p banding #Hypomagnesemia-resolved #Urinary retention #BPH Case discussed with my attending Dr. Nara Barton MD PGY-2 Status at Discharge Functional status at discharge: independent ambulation Overall status at discharge: patient is back to baseline Time Spent with Patient Time attestation: Total time spent providing and/or coordinating discharge services: Time spent: Greater than 30 minutes Exam Vital Signs Temp Pulse Resp BP Pulse Ox O2 Del Method O2 Flow Rate 97.6 F 71 18 122/61 100 Room Air 3 05/14/25 12:00 05/14/25 12:00 05/14/25 12:00 05/14/25 12:00 05/14/25 12:00 05/14/25 12:00 05/07/25 18:30 Narrative Exam Physical Exam GENERAL: NAD, AAOx2 at baseline HEENT: Moist mucosa. Eyes open, symmetrical, & clear CARDIO: Heart RRR, no obvious murmurs PULM: No noted coughing/dyspnea CTA B/L, no R/W/R GI: Abdomen soft, nondistended, no pain on palpation. BSx4 SKIN/MSK/EXT: Large ecchymoses of right arm, Right big toe appears blackened and necrotic, some serosanguinous-appearing discharge towards the base of the hallux, no pain on palpation. Pedal pulses present B/L NEURO: AAOx2, no focal neuro deficits, able to move all 4 extremities Discharge Plan Plan Patient Disposition: Home w/HOME HEALTH Patient condition on transfer: Stable Care Plan Goals: Discharge Recommendations: -Follow up with PCP within 1 week of discharge -We have discharged you with two medications 04/30-06/11, Ceftriaxone IV qday and Doxycycline 100mg BID -Continue rest of medications as previously prescribed -Return to the ED or call EMS if symptoms return and/or worsen. Please take your sodium tablets 3 times a day to maintain your sodium levels adequately 1) Please follow up with Dr. Gimenez podiatry for right great toe wound. Keep site clean and dry swab with betadine at least once a day. 2) If unable to follow up with Dr. Gimenez, please follow up with [facility], [address] [place] [address]. Call [phone] for appointment. Prescriptions/Referrals Prescriptions/Med Rec: New ceftriaxone 2 gram recon soln 2 g IV QDAY 30 Days doxycycline hyclate 100 mg capsule 100 mg PO BID 30 Days Qty: 60 0RF Continued tamsulosin [Flomax] 0.4 MG capsule,extended release 24hr 0.4 mg PO QDAY Qty: 0 finasteride 5 mg tablet 5 mg PO QDAY Patient Comments: TAKE ONE TABLET BY MOUTH EVERY DAY FOR PROSTATE multivitamin Tablet 1 tab PO QAM Patient Comments: TAKE ONE TABLET BY MOUTH EVERY DAY IN THE MORNING metformin 1,000 mg tablet 1 tab PO BID Patient Comments: TAKE ONE TABLET BY MOUTH TWICE DAILY docusate sodium 100 mg capsule 1 cap PO BID Patient Comments: TAKE ONE CAPSULE BY MOUTH TWICE DAILY FOR CONSTIPATION Dupixent Syringe 300 mg/2 mL syringe 2 ml SUBCUT PRN PRN (Reason: Pain) Patient Comments: INJECT ONE PEN SUBCUTANEOUSLY EVERY TWO WEEKS Rx Instructions: [id number] clopidogrel 75 mg tablet 75 mg PO DAILY Patient Comments: TAKE ONE TABLET BY MOUTH EVERY DAY FOR CIRCULATION atorvastatin 80 mg tablet 80 mg PO DAILY Patient Comments: TAKE ONE TABLET BY MOUTH EVERY DAY FOR CHOLESTEROL metoprolol succinate 25 mg tablet extended release 24 hr 37.5 mg PO DAILY Patient Comments: TAKE 1 AND 1/2 TABLETS BY MOUTH EVERY DAY FOR BLOOD PRESSURE Changed sodium chloride 1,000 mg tablet,soluble 1,000 mg PO TID 30 Days Qty: 90 0RF Patient Comments: TAKE ONE TABLET BY MOUTH TWICE DAILY Referrals: Narciso Mancini, [Primary Care Provider] Patient/Caregiver Discharge Instructions Other Discharge Activity Instructions:: 1) Please follow up with Dr. Gimenez podiatry for right great toe wound. Keep site clean and dry swab with betadine at least once a day. 2) If unable to follow up with Dr. Gimenez, please follow up with [facility], [address] [place] [address]. Call [phone] for appointment. Print Language: Algerian Stand Alone Forms: Isha Award Info., Patient Portal Info Letter Discharge Order Discharge Orders: Discharge (Routine); Ordered 05/14/25 Ordered By: Emil Barton Quality Discharge Quality Measures VTE prophylaxis
--- NOTE | 2025-05-14 18:35 | PC.CM ---
Patient discharged home today. [facility] to follow. Patient will be opened tomorrow 05/15 by VAL[facility]. [facility] ABX today.
== END 2025-05-14 15:06 | disposition home health service (06) | DRG 987 ==
LOC: SERX 17:01 → SERHOLD 17:31 → S2NX 19:26 → S3SX 05-09 02:58
PROVIDERS: Specialist; Student in an Organized Health Care Education/Training Program; Admitting Provider Student in an Organized Health Care Education/Training Program; Emergency Provider Family Medicine; PCP Internal Medicine; Visit Provider Internal Medicine
PROC: 0DJ08ZZ Inspection of Upper Intestinal Tract, Via Natural or Artificial Opening Endoscopic (ICD-10-PCS; CPT 43239; principal; 2025-05-03 11:15)
PROC: 0DJD8ZZ Inspection of Lower Intestinal Tract, Via Natural or Artificial Opening Endoscopic (ICD-10-PCS; CPT 45378; principal; 2025-05-07 17:30)
DX: E22.2 Syndrome of inappropriate secretion of antidiuretic hormone (principal); J18.9 Pneumonia, unspecified organism; K20.91 Esophagitis, unspecified with bleeding; E11.52 Type 2 diabetes mellitus with diabetic peripheral angiopathy with gangrene; M86.8X7 Other osteomyelitis, ankle and foot; D62 Acute posthemorrhagic anemia; N40.0 Benign prostatic hyperplasia without lower urinary tract symptoms; I25.10 Atherosclerotic heart disease of native coronary artery without angina pectoris; I10 Essential (primary) hypertension; E11.69 Type 2 diabetes mellitus with other specified complication; K29.70 Gastritis, unspecified, without bleeding; E83.42 Hypomagnesemia; F17.200 Nicotine dependence, unspecified, uncomplicated; K64.3 Fourth degree hemorrhoids; N40.1 Benign prostatic hyperplasia with lower urinary tract symptoms; R33.8 Other retention of urine; Z79.02 Long term (current) use of antithrombotics/antiplatelets; Z79.2 Long term (current) use of antibiotics; Z95.5 Presence of coronary angioplasty implant and graft; Z79.84 Long term (current) use of oral hypoglycemic drugs; Z91.148 Patient's other noncompliance with medication regimen for other reason
CPT/HCPCS: 36415; 71045; 73660; 80048; 80053; 80061; 80307; 81001; 82306; 82436; 82570; 82607; 82728; 82746; 83036; 83540; 83550; 83735; 83930; 83935; 84100; 84133; 84145; 84153; 84295; 84300; 84443; 85014; 85018; 85025; 85610; 85730; 86331; 86635; 86850; 86900; 86901; 86923; 87086; 87635; 92610; 93225; 96361; 96365; 97162; 99283; A4649; C1751; C1894; J0456; J0696; J1200; J1642; J1644; J2250; J3010; J3475; J3490; J7030; J7050; J7120; P9016; A9270; G0103

== ENCOUNTER 2025-05-19 04:45 | Inpatient (IN) | payer MEDICARE, MEDICAID, SELFPAY ==
[2025-05-19] VITALS (14 sets, daily range): BP systolic 92–159; BP diastolic 55–92; PULSE 64–152; RESP 16–99; TEMP 36.1–37.2; O2SAT 96–100; BMI 18.0
--- NOTE | 2025-05-19 06:12 | XR_ITS ---
Examination: Bilateral hips, AP pelvis, 5 views Technique: AP, lateral views both hips, AP pelvis, 5 views Exam date and time: May 19, 2025, 0655 hours INDICATIONS: Pelvic pain 2 days. FINDINGS: Severe osteopenia Acute partly intertrochanteric fracture right hip with marked angulation at the fracture site Healed left hip fracture Bones of the pelvis grossly intact IMPRESSION: Severely limited study technically Acute intertrochanteric appearing fracture right hip, consider CT scan pelvis right hip follow-up
--- NOTE | 2025-05-19 06:43 | XR_ITS ---
EXAMINATION: Right femur 2 views TECHNIQUE: AP lateral right femur 2 views Date and time: May 19, 2025, 0758 hours INDICATIONS: Patient fell today with injury to the femur, femur pain and deformity. FINDINGS: Severe osteopenia Acute appearing intertrochanteric fracture right hip with severe angulation at the fracture site Shaft of the femur are intact IMPRESSION: Acute appearing intertrochanteric fracture right hip with severe angulation at the fracture site, consider CT scan right hip without contrast follow-up
--- NOTE | 2025-05-19 06:51 | PD.EDADULT ---
ED General RME/HPI General Chief complaint: Hip Injury/Pain Stated complaint: HIP PAIN Time Seen by Provider: 05/19/25 06:09 Arrival date/time: 05/19/25 04:45 Related Data Home Medications ?Medication ?Instructions ?Recorded ?Confirmed tamsulosin 0.4 mg capsule (Flomax) 0.4 mg PO QDAY ##0 07/15/16 04/30/25 finasteride 5 mg tablet 5 mg PO QDAY 07/05/19 04/30/25 docusate sodium 100 mg capsule 1 cap PO BID 03/04/22 04/30/25 dupilumab 300 mg/2 mL subcutaneous 2 ml subcut PRN PRN Pain 03/04/22 04/30/25 syringe (Dupixent) metformin 1,000 mg tablet 1 tab PO BID 03/04/22 04/30/25 multivitamin 1 tab PO QAM 03/04/22 04/30/25 atorvastatin 80 mg tablet 80 mg PO DAILY 09/01/24 04/30/25 clopidogrel 75 mg tablet 75 mg PO DAILY 09/01/24 04/30/25 metoprolol succinate 25 mg 37.5 mg PO DAILY 09/01/24 04/30/25 tablet,extended release 24 hr Previous Rx's ?Medication ?Instructions ?Recorded ceftriaxone 2 gram solution for 2 g IV QDAY 1 month 05/14/25 injection doxycycline hyclate 100 mg capsule 100 mg PO BID 30 days #60 caps 05/14/25 sodium chloride 1,000 mg soluble 1,000 mg PO TID 30 days #90 tabs 05/14/25 tablet Allergies Allergy/AdvReac Type Severity Reaction Status Date / Time naproxen Allergy Severe DIFFICULTY Verified 12/31/24 08:17 BREATHING ED Exam Narrative Physical exam: Physical Exam: GENERAL: Awake, answering questions appropriately, appears stated age, frail appearing HEENT: NC/AT. Moist mucosa. PERRLA/EOMI. CARDIO: Heart RRR, no obvious murmurs, no JVD. PULM: No coughing or visible SOB. Lungs CTA B/L. GI: Abdomen soft, NT/ND, +BS. SKIN/MSK/EXT: Atrophic bilateral lower extremities, right AC PICC line noted. Right toe bandaged secondary to osteomyelitis. Left hip/femur replaced. No discoloration/rashes/edema/amputations noted. +Pedal pulses present B/L. NEURO: Oriented x3, no focal neurologic deficits noted. Course Quality Measures none Orders Category Date Time Status COVID-19 Screening Questionnaire NOW Care 05/19/25 10:04 Active Decision to Admit X1 Care 05/19/25 10:04 Active Insert IV NOW Care 05/19/25 06:[address] hip BI wo con Stat Exams 05/19/25 09:57 Ordered XR femur RT 2V Stat Exams 05/19/25 06:43 Completed XR femur RT 2V Stat Exams 05/19/25 09:56 Ordered XR hip BI w pelvis 2V Stat Exams 05/19/25 06:12 Completed XR hip RT w pelvis 2-3V Stat Exams 05/19/25 09:56 Ordered CBC Stat Lab 05/19/25 06:27 Completed CMP [Comprehensive Metabolic Panel] Stat Lab 05/19/25 06:27 Completed Morphine* Inj Med 05/19/25 07:11 Discontinued 2 mg IVP X1 ONE Vital Signs Vital signs: Vital Signs Temperature 98.1 F 05/19/25 05:13 Pulse Rate 102 H 05/19/25 05:13 Respiratory Rate 16 05/19/25 05:13 Blood Pressure 127/69 05/19/25 05:13 Pulse Oximetry (%) 100 05/19/25 05:13 Oxygen Delivery Method Room Air 05/19/25 05:13 Discharge Plan Plan Patient Disposition: Admit Acute Care w/in Hospital Patient condition on transfer: Stable Prescriptions/Referrals Prescriptions/Med Rec: No Action tamsulosin [Flomax] 0.4 MG capsule,extended release 24hr 0.4 mg PO QDAY Qty: 0 finasteride 5 mg tablet 5 mg PO QDAY Patient Comments: TAKE ONE TABLET BY MOUTH EVERY DAY FOR PROSTATE ceftriaxone 2 gram recon soln 2 g IV QDAY 30 Days doxycycline hyclate 100 mg capsule 100 mg PO BID 30 Days Qty: 60 0RF sodium chloride 1,000 mg tablet,soluble 1,000 mg PO TID 30 Days Qty: 90 0RF Patient Comments: TAKE ONE TABLET BY MOUTH TWICE DAILY multivitamin Tablet 1 tab PO QAM Patient Comments: TAKE ONE TABLET BY MOUTH EVERY DAY IN THE MORNING metformin 1,000 mg tablet 1 tab PO BID Patient Comments: TAKE ONE TABLET BY MOUTH TWICE DAILY docusate sodium 100 mg capsule 1 cap PO BID Patient Comments: TAKE ONE CAPSULE BY MOUTH TWICE DAILY FOR CONSTIPATION Dupixent Syringe 300 mg/2 mL syringe 2 ml SUBCUT PRN PRN (Reason: Pain) Patient Comments: INJECT ONE PEN SUBCUTANEOUSLY EVERY TWO WEEKS Rx Instructions: [id number] clopidogrel 75 mg tablet 75 mg PO DAILY Patient Comments: TAKE ONE TABLET BY MOUTH EVERY DAY FOR CIRCULATION atorvastatin 80 mg tablet 80 mg PO DAILY Patient Comments: TAKE ONE TABLET BY MOUTH EVERY DAY FOR CHOLESTEROL metoprolol succinate 25 mg tablet extended release 24 hr 37.5 mg PO DAILY Patient Comments: TAKE 1 AND 1/2 TABLETS BY MOUTH EVERY DAY FOR BLOOD PRESSURE Referrals: Narciso Mancini [Primary Care Provider] - In 1 week Problem List Clinical Impression: Intertrochanteric fracture of right femur Patient/Caregiver Discharge Instructions Print Language: Uzbek Stand Alone Forms: Isha Award Info., Patient Portal Info Letter MDM Narrative MDM hospital course (for use when minimal MDM required): HPI: 79-year-old male with past medical history of right toe osteomyelitis status post PICC line placement, recurrent hyponatremia, hypertension, type 2 diabetes, coronary artery disease status post stent placement in July 2023, recent hip surgery about 3 weeks ago apparently, presenting to the ED on 05/19 with episode of a ground-level fall. Patient states that he was using his walker when he tripped over in his house and landed on his left hip. He notes that he did not lose consciousness and remembers exactly how it happened and recounts what he tripped on. Patient did not have any concerning symptoms such as chest pain, shortness of breath, dizziness prior to the episode. Of note, he was recently discharged in the hospital on 05/14 for severe hypoosmolar hyponatremia and osteomized of the right toe which was treated with IV antibiotics and PICC line placement. On examination, please refer to the physical exam note above; patient presented normotensive, mildly tachycardic with a heart rate of 102, respiratory of 16, afebrile satting 100 on room air. Labs including CBC and CMP are pending. X-ray of bilateral hips and right femur acute appearing intertrochanteric fracture of the right hip with severe angulation #Ground-level fall #Likely right hip dislocation versus fracture; cannot rule out left hip dysfunction as well As noted above in examination 2 mg IV morphine given for pain management Called orthopedic surgeon on-call who has recommended that we obtain a CT scan of the right hip for better visualization of the fracture. He would like the patient to be admitted and to obtain a cardiac clearance prior to surgery. Plan: Pain management Called admitting hospitalist team who have agreed to assess the patient for admission. Patient seen and examined with attending Dr. Hank Perez, DO PGY-2 Internal Medicine - GME Medication Administration(s) Medication Administration History Discontinued Medications Morphine Sulfate (Morphine Sulf Inj 4 Mg/Ml Vial) 2 mg IVP X1 ONE Stop: 05/19/25 07:12 Last Admin: 05/19/25 07:45 Dose: 2 mg Documented By: NANCI
[2025-05-19 07:04] LABS: Basophils # (Auto) 0.0 Thou/mm3 (0.0-0.2); Basophils % (Auto) 0 % (0-2.5); Eosinophils # (Auto) 0.0 Thou/mm3 (0.0-0.5); Eosinophils % (Auto) 0 % (0-10); Hematocrit 21.4 % (41.0-53.0); Immature Granulocytes Auto 0.04 Thou/mm3 (0.00-0.00); Lymphocytes # (Auto) 0.5 Thou/mm3 (1.0-4.8); Lymphocytes % (Auto) 6 % (10-50); Mean Corpuscular HGB Conc 34.1 g/dl (31.0-37.0); Mean Corpuscular Hemoglobin 32.4 pg (25.0-35.0); Mean Corpuscular Volume 95 fL (80-100); Monocytes # (Auto) 0.4 Thou/mm3 (0.0-0.8); Monocytes % (Auto) 4 % (0-12); Neutrophils # (Auto) 7.9 Thou/mm3 (1.8-7.7); Neutrophils % (Auto) 90 % (37-80); Nucleated Red Blood Cell # 0.00 Thou/mm3 (0.00-0.00); Nucleated Red Blood Cell % 0 /100 WBC (0); Platelet Count 254 Thou/mm3 (140-440); RDW Standard Deviation 58.8 fL (35.1-43.9); Red Blood Count 2.25 Miln/mm3 (4.50-5.90); White Blood Count 8.9 Thou/mm3 (3.8-10.6)
[2025-05-19 07:20] LABS: Alanine Aminotransferase 14 U/L (10-49); Albumin, Serum 2.8 gm/dL (3.4-4.8); Albumin/Globulin Ratio 1.0 (1.2-2.2); Alkaline Phosphatase 91 U/L (46-116); Anion Gap 11 (7-16); Aspartate Amino Transferase 15 U/L (0-34); BUN/Creatinine Ratio 16 Ratio (12-20); Bilirubin,Total 0.4 mg/dL (0.3-1.2); Blood Urea Nitrogen 11 mg/dL (9-23); Calcium 8.3 mg/dL (8.3-10.6); Calcium (Corrected) 9.3 mg/dL (8.5-10.1); Carbon Dioxide 22.2 mMol/L (20.0-31.0); Chloride 98 mMol/L (98-107); Creatinine (Component) 0.7 mg/dL (0.6-1.3); Estimated Creatinine Clearance 65.9 mL/min (>60); Globulin 2.8 gm/dL (2.3-3.5); Glucose 207 mg/dL (74-106); Hemoglobin 7.3 g/dL (13.5-16.0); Osmolality,Calculated 268 (275-295); Potassium 4.3 mMol/L (3.4-5.1); Sodium 131 mMol/L (136-145); Total Protein 5.6 gm/dL (5.7-8.2); eGFR > 60 See Note
[2025-05-19] MEDS: MORPHINE SULF INJ 4 MG/ML VIAL 2 MG IVP (07:45)
--- NOTE | 2025-05-19 09:24 | PC.NURSE ---
RESIDENT AMYAN NOTIFIED OF PATIENT'S X-RAY REPORTS. [facility] PATIENT VERBALIZES IMPROVEMENT OF PAIN. PATIENT ALERT AND ORIENTED X4. PLAN OF CARE ONGOING
--- NOTE | 2025-05-19 09:56 | XR_ITS ---
EXAMINATION: Right femur 2 views TECHNIQUE: AP lateral right femur 2 views Date and time: May 19, 2025, 10:22 a.m. INDICATIONS: Patient fell several days ago with injury to the leg, femur pain FINDINGS: Acute severely angulated intertrochanteric fracture right hip Shaft of the femur are intact IMPRESSION: Acute severely angulated intertrochanteric fracture right hip
--- NOTE | 2025-05-19 09:56 | XR_ITS ---
Examination: Right hip AP, lateral, AP pelvis 3 views Technique: Hip AP lateral, AP pelvis, 3 views Exam date and time: May,, 1012 hours INDICATIONS: Patient fell several days ago with injury to the right hip, right hip pain FINDINGS: Severe osteopenia Acute angulated intertrochanteric fracture right hip No hip dislocation Bones of the pelvis intact IMPRESSION: Acute comminuted severely angulated intertrochanteric fracture right hip.
--- NOTE | 2025-05-19 09:57 | XR_ITS ---
CT of the hips bilateral without contrast 1 Studies performed on 05/19/2025 at 10:13 a.m. Comparison is made with previous CT dated 12/31/2024 The CTDI is 3.92, the DLP is 1.45 studies performed without IV contrast. INDICATION: Traumatic fall with right hip FINDINGS: On the previous CT exam the patient had a significantly comminuted intertrochanteric fracture of the left proximal femur. This has been repaired with an intramedullary nupur and screw bridging the fracture site and holding the bony fragments in reasonably good position and alignment. The previous CT had also shown a fracture of the medial aspect of the right anterior and posterior pubic rami, and these fractures of the pubic rami are now healed. There was also a very subtle nondisplaced fracture of the left inferior pubic ramus which is now healed. There is very advanced, major degenerative joint disease and joint space narrowing with surrounding osteophyte formation in the right hip joint. There is also a new comminuted intertrochanteric fracture of the right proximal femur involving the greater trochanter and proximal femoral shaft. The femoral shaft is displaced anteromedially. There is major disc space narrowing and calcification at L5-S1 unchanged, there is minor narrowing of the L4-5 disc which also shows prominent calcification and this is unchanged. In the pelvis, there is major enlargement of the prostate gland measuring 5.3 cm in AP and transverse diameter, this was essentially the same size on the previous CT exam. There is now significant abnormal distention of the urinary bladder. The entire colon is filled with fecal material, and there is significant distention of the distal sigmoid and rectum. Major extensive vascular calcification is seen in all visible arteries. IMPRESSION: 1. There is a new comminuted intertrochanteric fracture of the proximal right femur as outlined above. 2 patient is status post an old intratrochanteric fracture of the left proximal femur which has been stabilized by orthopedic hardware. Healed. Fractures of the superior and inferior pubic rami on the right and the inferior pubic ramus on the left on the previous study, these have all healed 3. There is major chronic enlargement of the prostate gland and there is major abnormal dilatation of the urinary bladder related to chronic prostatism most likely 4. The entire colon is diffusely filled with fecal material and there is a major fecal impaction in the distal sigmoid and rectum with very marked dilatation of these areas of the distal colon 5. See above regarding some additional finding
--- NOTE | 2025-05-19 11:51 | PC.SS ---
Patient Geraldo Scott is a 79 Year old male admitted for Hip Fracture. SS conducted bedside contact with the patient conduct initial assessment and to discuss discharge planning.? Patient confirmed demographic information.? Patient resides at home with spouse Olamide Scott .?Patient reports he utilizes a walker to assist with ambulation.? Patient does not utilize home oxygen.? Patient requires assistance with the completion of ADL?s.? Patient?s spouse provides assistance.? Patient identified his daughter, Colette Cooper; as surrogate medical decision maker, [phone]. Patient?s PCP is Narciso Mancini.? 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 Patient utilizes [facility] for medication services.? SS inquired about SNF, however patient report he does not know, and would like to discuss furthermore with his daughter. No further intervention required at this time, child protective services social worker will be available to address any further concerns.? Next of Kin: Daughter, Colette Cooper D/C Plan: Needs Discharge plan Dr. Narciso Mancini
--- NOTE | 2025-05-19 12:47 | XR_ITS ---
EXAMINATION: AP right hip single view TECHNIQUE: AP portable right hip single view Date and time: May 19, 2025, 1319 hours INDICATIONS: Hip pain this week FINDINGS: Acute intertrochanteric fracture right hip with significant angulation Severe osteopenia Advanced osteoarthritis right hip joint IMPRESSION: Acute intertrochanteric angulated fracture right hip
--- NOTE | 2025-05-19 13:09 | PC.NURSE ---
PER DR. HUA PATIENT NEEDS A XRAY OF THE HIP WITH TRACTION. MD WILL PUT IN ORDER FOR PAIN MEDS AND COME TO BEDSIDE TO APPLY TRACTION.
[2025-05-19] MEDS: HYDROmorphone INJ 2 MG/ML VIAL 1 MG IVP (13:17)
--- NOTE | 2025-05-19 13:25 | ECHO_ITS ---
Patient Info Name: Geraldo Scott Age: 79 years : 1945 Gender: Male Ht: 175 cm BP: 125 / 76 mmHg HR: 115 bpm Exam Date: 05/19/2025 5:22 PM Admit Date: 05/19/2025 Site: [facility] Room Number: 364 Patient Status: I Technical Quality: Poor Exam Type: CA echo doppler complete Reason for Poor Study: poor echocardiographic windows, body habitus Photograph Inspector: Jenny Pfeiffer Ordering Physician: Adina Daniel Study Info Indications Pre-Op - Primary Location: [id number] Left Ventricular Outflow Tract Name Value Normal LVOT 2D LVOT Diameter 1.8 cm LVOT Doppler LVOT Peak Velocity 85 cm/s LVOT Mean Gradient 2 mmHg LVOT VTI 16 cm LVOT VTI/AV VTI Ratio 1.0 LVOT Stroke Volume 40 ml Mitral Valve Name Value Normal MV Doppler MV Decel Bollinger 409 cm/s2 MV PHT 35 ms MV Area (PHT) 6.3 cm2 4.0-5.0 MV Diastolic Function MV E Peak Velocity 49 cm/s MV A Peak Velocity 71 cm/s MV E/A 0.7 MV Annular TDI MV Septal e' Velocity 12.3 cm/s MV E/e' (Septal) 4.0 MV Lateral e' Velocity 6.7 cm/s MV E/e' (Lateral) 7.3 MV e' Average 9.52 cm/s MV E/e' (Average) 5.6 Tricuspid Valve Name Value Normal TV Regurgitation Doppler TR Peak Velocity 159 cm/s Estimated PAP/RSVP RA Pressure 8 mmHg <=5 PA Systolic Pressure 18 mmHg <36 RV Systolic Pressure 18 mmHg <36 Aortic Valve Name Value Normal AV Doppler AV Peak Velocity 106 cm/s AV Mean Gradient 2 mmHg AV VTI 15 cm AV Area (Cont Eq VTI) 2.6 cm2 >=3.0 AV Area (Cont Eq Danny) 2.0 cm2 AV DI (Danny) 0.80 AV Regurgitation 2D LVOT Area 2.5 cm2 Ventricles Name Value Normal LV Dimensions 2D/MM IVS Diastolic Thickness (2D) 0.9 cm 0.6-1.0 LVID Diastole (2D) 3.1 cm 4.2-5.8 LVIW Diastolic Thickness (2D) 1.0 cm 0.6-1.0 LVID Systole (2D) 2.2 cm 2.5-4.0 LVOT Diameter 1.8 cm LV Mass (2D Cubed) 79.81 g 88.00-224.00 Relative Wall Thickness (2D) 0.65 <=0.42 IVS/LVIW Diastolic Thickness (2D) 0.90 0.00-1.50 LV Fractional Shortening/Ejection Fraction 2D/MM LV Fractional Shortening (2D) 29 % 25-43 LV EF (2D Teichholz) 57 % Atria Name Value Normal LA Dimensions LA Volume (4C A-L) 24 ml Left Ventricle Left ventricular chamber dimension is normal. Left ventricular systolic function is normal with visually estimated ejection fraction of 55-60%. There is concentric remodeling noted in the left ventricle. Left ventricular segmental wall motion is normal. There is indeterminate diastolic function in the left ventricle. Right Ventricle Right ventricular chamber dimension is normal. Right ventricular systolic function is normal. Left Atrium Left atrial chamber dimension is normal. Right Atrium Right atrial chamber dimension is normal. Aortic Valve The aortic valve is trileaflet. There is no aortic valve sclerosis. There is no aortic valve stenosis with a peak velocity of 106 cm/s, mean gradient of 2 mmHg, and aortic valve area of 2.6 cm2. There is no aortic valve regurgitation. Pulmonic Valve The pulmonic valve is normal. There is no pulmonic valve stenosis. There is no pulmonic regurgitation. Mitral Valve The mitral valve has normal leaflets. There is no mitral valve stenosis. There is trace mitral valve regurgitation. Tricuspid Valve The tricuspid valve leaflets are normal. There is no tricuspid valve stenosis. There is trace tricuspid valve regurgitation. No pulmonary hypertension, estimated pulmonary arterial systolic pressure is 18 mmHg and systemic blood pressure of 125 mmHg in systole. Pericardium/Pleural The pericardium appears normal. There is no pericardial effusion. No pleural effusion visualized. Inferior Vena Cava Not well visualized inferior vena cava with >50% collapse upon inspiration consistent with normal right atrial pressure, 8 mmHg. Aorta The aortic measurements are indexed to age and body surface area. The aortic root at the sinus of Valsalva is not well visualized. The prox ascending aorta is not well visualized. Summary 1. Left ventricle size is normal and systolic function is normal. Estimated ejection fraction is 55-60%. There is indeterminate diastolic function. 2. Right ventricle chamber size is normal and systolic function is normal. Estimated RVSP is 18 mmHg. 3. There is trace mitral valve regurgitation. 4. There is trace tricuspid valve regurgitation. 5. Not well visualized IVC with estimated RA pressure 8 mmHg. 6. Prior study from 09/02/2024. Report Signatures Finalized by Nathan Larios on 05/19/2025 07:23 PM
--- NOTE | 2025-05-19 13:28 | EKG_ITS ---
[facility] Test Date: 2025-05-19 Pat Name: SOHAIL BOLAND Department: Room: [facility] Gender: Male Process Trainer: WHITNEY : 1945 Requested By: Adina Daniel Order Number: [id number] Reading MD: Adina Daniel Measurements Intervals Harvey Rate: 98 P: 71 [place]: 152 QRS: 53 QRSD: 84 T: 88 QT: 275 QTc: 352 Interpretive Statements SINUS RHYTHM WITH FREQUENT VENTRICULAR PREMATURE COMPLEXES NONSPECIFIC T-WAVE ABNORMALITY ABNORMAL RHYTHM ECG Compared to ECG 12/31/2024 09:22:01 Ventricular premature complex(es) now present Possible ischemia no longer present T-wave abnormality still present /store/S0/[id number]
--- NOTE | 2025-05-19 13:39 | ESHP_ITS ---
<Statement entered by Donis Bains MD - 05/31/25 09:23> I reviewed above note and agree with findings and plans. I have also personally examined the patient with medicine team and went over assessment and plan with medical team including internal grinding machine operator and resident physician. <Statement entered by Emil Barton MD - 05/19/25 17:23> Patient was examined and case was reviewed with team including attending physician. Note reviewed, I agree with most of its contents and agree with the patient's care as documented by Dr. Bartholomew 79-year-old male with CAD s/p stent, chronic hyponatremia, PAD with active right toe osteomyelitis on IV antibiotics, presenting after a mechanical ground-level fall. Patient was walking with his walker at this usual state of health and had a ground level fall and was brought to the ED. Patient denies any head trauma stating he mainly fell on his bottom and side. In the ED patient had a imaging studies done found to have a displaced intertrochanteric right hip fracture. Orthopedic surgery was consulted and recommended cardiac clearance prior to surgical intervention at this time. Cardiology was consulted for cardiac clearance. NPO after midnight was placed as per Ortho recommendations. Case discussed with my attending Dr. Nara Barton MD PGY-2 Documentation for date of: 05/19/25 HPI History of Present Illness Chief complaint: Ground-level fall History of present illness: 79-year-old male with CAD s/p stent, chronic hyponatremia, PAD with active right toe osteomyelitis on IV antibiotics, presenting after a mechanical ground-level fall found to have a displaced intertrochanteric right hip fracture; admitted for optimization and cardiac clearance for surgical repair. He presents after a mechanical ground-level fall at home this morning. He reports that he was ambulating with his walker when he tripped and fell onto his left side, though pain is primarily in the right hip. He clearly recalls the event and denies loss of consciousness, dizziness, chest pain, dyspnea, palpitations, or presyncopal symptoms prior to the fall. He was recently hospitalized (04/30?05/16) for severe hypoosmolar hyponatremia and right toe osteomyelitis, discharged on IV ceftriaxone + doxycycline via PICC through 06/11. In the ED: ? Vitals: mildly tachycardic, otherwise stable. ? X-ray and CT hip: displaced intertrochanteric fracture with subtrochanteric extension and greater trochanter fracture. ? Hemoglobin 7.3 -> transfusing 1 unit PRBC. ? Sodium 131 (near his chronic baseline). Orthopedics recommends cephalomedullary nail fixation once medically optimized. Requires cardiology clearance given CAD and anemia. He endorses significant right hip pain with any movement. Denies chest pain, dyspnea, new neurologic deficits, or infectious symptoms. Review of systems: Negative unless stated above. Past medical history: * Recurrent hyponatremia / SIADH * Hypertension * Type 2 diabetes mellitus * CAD s/p stents Jul 2023 * Peripheral arterial disease * Osteomyelitis of right hallux (on IV antibiotics via PICC) * BPH * History of left hip fracture earlier this year Past surgical history: * PCI with stent placement (Jul 2023) * Cholecystectomy (remote) * Prior left hip surgery * PICC line placement for osteomyelitis Meds: (To be confirmed with med rec) Allergies: ? Naproxen ? difficulty breathing. Social history: ? Lives at home with family. ? Ambulates with walker. ? Smokes ~50 pack-years, still smoking. ? Denies alcohol or illicit drug use. Family history: Noncontributory Exam Vital Signs Temp Pulse Resp BP Pulse Ox O2 Del Method 97.5 F 115 H 19 125/76 100 Room Air 05/19/25 11:12 05/19/25 11:12 05/19/25 11:12 05/19/25 11:12 05/19/25 11:12 05/19/25 11:12 Narrative Exam GENERAL: Awake, answering questions appropriately, appears stated age, frail appearing HEENT: NC/AT. Moist mucosa. PERRLA/EOMI. CARDIO: Heart RRR, no obvious murmurs, no JVD. PULM: No coughing or visible SOB. Lungs CTA B/L. GI: Abdomen soft, NT/ND, +BS. SKIN/MSK/EXT: Atrophic bilateral lower extremities, right AC PICC line noted. Right toe bandaged secondary to osteomyelitis. Left hip/femur replaced. No discoloration/rashes/edema/amputations noted. +Pedal pulses present B/L. NEURO: Oriented x3, no focal neurologic deficits noted. Results: Labs 05/19/25 06:27 05/19/25 06:27 Labs: Short CBC 05/19/25 Range/Units 06:27 WBC 8.9 D (3.8-10.6) Thou/mm3 Hgb 7.3 L (13.5-16.0) g/dL Hct 21.4 L* (41.0-53.0) % Plt Count 254 D (140-440) Thou/mm3 BMP 05/19/25 06:27 Sodium 131 L Potassium 4.3 Chloride 98 Carbon Dioxide 22.2 BUN 11 Creatinine 0.7 Glucose 207 H Calcium 8.3 Liver Function 05/19/25 Range/Units 06:27 Total Bilirubin 0.4 (0.3-1.2) mg/dL AST 15 (0-34) U/L ALT 14 (10-49) U/L Alkaline Phosphatase 91 (46-116) U/L Albumin 2.8 L (3.4-4.8) gm/dL Quality Measures Quality Measures VTE prophylaxis Advance care planning discussed with:: patient Medications Home Medications and Allergies Home Medications ?Medication ?Instructions ?Recorded ?Confirmed ?Type tamsulosin 0.4 mg capsule (Flomax) 0.4 mg PO QDAY ##0 07/15/16 04/30/25 History finasteride 5 mg tablet 5 mg PO QDAY 07/05/19 History docusate sodium 100 mg capsule 1 cap PO BID 03/04/2206/30/24 History dupilumab 300 mg/2 mL subcutaneous 2 ml subcut PRN PRN Pain 03/04/22 04/30/25 History syringe (Dupixent) metformin 1,000 mg tablet 1 tab PO BID 03/04/22 History multivitamin 1 tab PO QAM 03/04/22 History atorvastatin 80 mg tablet 80 mg PO DAILY 09/01/2404/12 History clopidogrel 75 mg tablet 75 mg PO DAILY 09/01/2404/12 History metoprolol succinate 25 mg 37.5 mg PO DAILY 09/01/2406/30/24 History tablet,extended release 24 hr Allergies Allergy/AdvReac Type Severity Reaction Status Date / Time naproxen Allergy Severe DIFFICULTY Verified 12/31/24 08:17 BREATHING Visit Medications Acetaminophen (Acetaminophen 325 Mg Tablet) 650 mg PO Q6H PRN PRN Reason: Fever >100.4 pr pain 1-5 Stop: 06/18/25 13:30 Hydrocodone Bitart/Acetaminophen (Hydrocodone/Apap 5/325 Tablet) 1 tab PO Q4HR PRN PRN Reason: Pain Scale 6-10 Stop: 05/24/25 13:30 Atorvastatin Calcium (Atorvastatin Calcium 20 Mg Tablet) 80 mg PO HS [facility] Stop: 06/18/25 20:59 Finasteride (Finasteride 5 Mg Tablet) 5 mg PO QDAY [facility] Stop: 06/18/25 13:44 Ondansetron HCl (Ondansetron Inj 2 Mg/Ml Inj 2 Ml) 4 mg IVP Q6H PRN; Protocol PRN Reason: NAUSEA OR VOMITING Stop: 06/18/25 13:30 Pantoprazole Sodium (Pantoprazole Inj 40 Mg Vial) 40 mg IVP QDAY [facility] Stop: 06/18/25 13:44 Tamsulosin HCl (Tamsulosin Hcl 0.4 Mg Capsule) 0.4 mg PO QDAY [facility] Stop: 06/18/25 13:44 Discontinued Medications Hydromorphone HCl (Hydromorphone Inj 2 Mg/Ml Vial) 1 mg IVP X1 ONE Stop: 05/19/25 13:10 Last Admin: 05/19/25 13:17 Dose: 1 mg Morphine Sulfate (Morphine Sulf Inj 4 Mg/Ml Vial) 2 mg IVP X1 ONE Stop: 05/19/25 07:12 Last Admin: 05/19/25 07:45 Dose: 2 mg Assessment & Plan Plan 79-year-old male with CAD s/p stent, chronic hyponatremia, PAD with active right toe osteomyelitis on IV antibiotics, presenting after a mechanical ground-level fall found to have a displaced intertrochanteric right hip fracture; admitted for optimization and cardiac clearance for surgical repair. #Displaced intertrochanteric fracture, right hip Acute fracture after mechanical fall. Severe pain, classic deformity. Imaging confirms displaced intertrochanteric fracture with subtrochanteric extension. Plan: * Admit to medicine for optimization & clearance * Orthopedics planning cephalomedullary nail when stable * NPO at midnight * Pain control with multimodal regimen; avoid oversedation * PT/OT postop * Continue to monitor for compartment syndrome or neurovascular compromise * Trend Hgb post-transfusion #Preoperative cardiac risk assessment (CAD s/p stent 07/2023) High risk given age, CAD, anemia, PAD, current active infection. No chest pain or active cardiac symptoms today. Requires risk stratification for urgent hip repair. Plan: * Cardiology consult for clearance * Baseline ECG, troponin * Continue home cardiac meds once reconciled (except hold anticoagulation if needed per ortho) * Avoid hypotension; maintain Hgb >8 #Acute blood loss anemia Hgb 7.3 on arrival. Likely combination of fracture-related blood loss + chronic anemia. Plan: * Transfuse 1 PRBC (already initiated) * Repeat CBC after transfusion * Maintain Hgb >8 for surgery * Monitor post-op #Chronic hyponatremia/SIADH? Na 131, stable near baseline. Recently discharged on salt tabs, fluid restriction. Plan: * Continue home salt tablets * Trend Na daily * Avoid aggressive fluids unless needed for hemodynamics * If worsening, consult nephrology (Dr. Marquez follows outpatient) #Right great toe chronic osteomyelitis (active infection) On IV ceftriaxone + doxycycline through 06/11 via PICC. Plan: * Continue IV antibiotics per prior plan * Daily wound care * Notify ortho of operative infection risk * Monitor for systemic infection (WBC, fever) #Type 2 diabetes mellitus Mild hyperglycemia on arrival (glucose 207). Plan: * Basal insulin per home regimen * SSI inpatient * Glucose checks qACHS * Hold metformin pre-op #Hypertension BP 125/76 Plan: * Resume home antihypertensives after med rec * Avoid hypotension pre-op, especially with anemia #Peripheral arterial disease Chronic; contributes to osteomyelitis risk. Plan: * Continue PAD management * Monitor distal perfusion post-surgery #BPH Plan: * Continue home tamsulosin/finasteride once reconciled * Monitor for urinary retention Hospital management: Diet: NPO at midnight for possible OR DVT Prophylaxis: Hold heparin pre-op; use SCDs GI Prophylaxis: Not indicated Bowel regimen: PRN Code Status: Full Code Disposition: Admit to telemetry; surgery planned once cleared ----- Plan discussed with attending physician Dr. Bains and senior resident Dr. Hunter Bartholomew MD PGY-1 Internal Medicine
--- NOTE | 2025-05-19 13:39 | PD.ORTHCON ---
HPI Consult details Reason for consultation narrative: Right hip pain History of present illness: Patient is a 79-year-old male with multiple medical history including a NSTEMI and a left hip fracture this year and recent right toe osteomyelitis and peripheral vascular disease who presents today for evaluation of his right hip. He is a baseline ambulator with a walker. He lives at home with his family. He reports significant right hip pain since the fall. Review of Systems Review of Systems Narrative Review of Systems: Patient has multiple medical comorbidities including NSTEMI and a left hip fracture recently, and a right toe osteomyelitis Past Medical History Past Medical History Comments PMH COMMENT: See above HPI Meds Home Medications and Allergies Home Medications ?Medication ?Instructions ?Recorded ?Confirmed ?Type tamsulosin 0.4 mg capsule (Flomax) 0.4 mg PO QDAY ##0 07/15/16 04/30/25 History finasteride 5 mg tablet 5 mg PO QDAY 07/05/19 04/30/25 History docusate sodium 100 mg capsule 1 cap PO BID 03/04/22 04/30/25 History dupilumab 300 mg/2 mL subcutaneous 2 ml subcut PRN PRN Pain 03/04/22 04/30/25 History syringe (Dupixent) metformin 1,000 mg tablet 1 tab PO BID 03/04/22 04/30/25 History multivitamin 1 tab PO QAM 03/04/22 04/30/25 History atorvastatin 80 mg tablet 80 mg PO DAILY 09/01/24 04/30/25 History clopidogrel 75 mg tablet 75 mg PO DAILY 09/01/24 04/30/25 History metoprolol succinate 25 mg 37.5 mg PO DAILY 09/01/24 04/30/25 History tablet,extended release 24 hr Allergies Allergy/AdvReac Type Severity Reaction Status Date / Time naproxen Allergy Severe DIFFICULTY Verified 12/31/24 08:17 BREATHING Exam Vital Signs Temp Pulse Resp BP Pulse Ox O2 Del Method 97.5 F 115 H 19 125/76 100 Room Air 05/19/25 11:12 05/19/25 11:12 05/19/25 11:12 05/19/25 11:12 05/19/25 11:12 05/19/25 11:12 Additional findings Additional findings: Patient is in no acute distress and is cooperative with the examination today. Breathing is nonlabored. In no respiratory distress. Patient has no paraspinal tenderness. Spinal deformity cannot be appreciated. The gait of the patient is nonantalgic Bilateral extremities were evaluated and demonstrates sensation intact to light touch. Dorsalis pedis posterior tibial pulses cannot be palpated on the right. He has osteomyelitis and has a Betadine gauze on his lateral foot Bilateral knees were examined and the patient has full strength and range of motion.. The left hip was examined. Patient was able to flex to 90 degrees, adduct to 30 degrees, abduct to 40 degrees, internally rotate to 20 degrees, and externally rotate to 20 degrees. Patient has a negative logroll. Stinchfield is negative. The patient is nontender diffusely to touch. The right hip was examined. Patient is shortened and abducted and internally rotated. It Is significantly shortened by over 3 cm. Range of motion was not performed secondary to pain Results - Ortho Labs 05/19/25 06:27 05/19/25 06:27 Labs: Short CBC 05/19/25 Range/Units 06:27 WBC 8.9 D (3.8-10.6) Thou/mm3 Hgb 7.3 L (13.5-16.0) g/dL Hct 21.4 L* (41.0-53.0) % Plt Count 254 D (140-440) Thou/mm3 BMP 05/19/25 06:27 Sodium 131 L Potassium 4.3 Chloride 98 Carbon Dioxide 22.2 BUN 11 Creatinine 0.7 Glucose 207 H Calcium 8.3 Liver Function 05/19/25 Range/Units 06:27 Total Bilirubin 0.4 (0.3-1.2) mg/dL AST 15 (0-34) U/L ALT 14 (10-49) U/L Alkaline Phosphatase 91 (46-116) U/L Albumin 2.8 L (3.4-4.8) gm/dL Imaging Xray: Additional comments: Right hip x-rays as well as femur x-rays and a CT scan of the hip demonstrate a displaced intertrochanteric fracture with subtrochanteric extension. We also obtained a traction view. There is a fracture of the greater trochanter as well Assessment & Plan Problem List (1) Intertrochanteric fracture of right femur: Status: Acute Assessment and plan: Patient is an 79-year-old male with multiple medical committees including NSTEMI, osteomyelitis, and active big toe infection with right hip pain after a ground-level fall. He was found to have an intertrochanteric fracture of the right hip with subtrochanteric extension. I thus discussed with him multiple options. I discussed he is at high risk for infection given his active infection and osteomyelitis of his right toe. I discussed the risk of surgery including infection, nonunion, malunion, recurrent fracture, failure of hardware, and medical complications especially given his extensive medical history. He will get a cardiac clearance. The patient understands would like to proceed with surgery. The patient reports that he signed his own consents and he is alert and oriented x 3 today. He would like to proceed with surgery. - plan for cephalomedullary nail when stable of the right hip - npo at midnight - we will clarify when plavix was last taken
--- NOTE | 2025-05-19 13:39 | PD.RESHP ---
Documentation for date of: 05/19/25 [facility] History of Present Illness Chief complaint: Ground-level fall History of present illness: 79-year-old male with CAD s/p stent, chronic hyponatremia, PAD with active right toe osteomyelitis on IV antibiotics, presenting after a mechanical ground-level fall found to have a displaced intertrochanteric right hip fracture; admitted for optimization and cardiac clearance for surgical repair. He presents after a mechanical ground-level fall at home this morning. He reports that he was ambulating with his walker when he tripped and fell onto his left side, though pain is primarily in the right hip. He clearly recalls the event and denies loss of consciousness, dizziness, chest pain, dyspnea, palpitations, or presyncopal symptoms prior to the fall. He was recently hospitalized (04/30?05/16) for severe hypoosmolar hyponatremia and right toe osteomyelitis, discharged on IV ceftriaxone + doxycycline via PICC through 06/11. In the ED: ? Vitals: mildly tachycardic, otherwise stable. ? X-ray and CT hip: displaced intertrochanteric fracture with subtrochanteric extension and greater trochanter fracture. ? Hemoglobin 7.3 -> transfusing 1 unit PRBC. ? Sodium 131 (near his chronic baseline). Orthopedics recommends cephalomedullary nail fixation once medically optimized. Requires cardiology clearance given CAD and anemia. He endorses significant right hip pain with any movement. Denies chest pain, dyspnea, new neurologic deficits, or infectious symptoms. Review of systems: Negative unless stated above. Past medical history: Recurrent hyponatremia / SIADH Hypertension Type 2 diabetes mellitus CAD s/p stents Jul 2023 Peripheral arterial disease Osteomyelitis of right hallux (on IV antibiotics via PICC) BPH History of left hip fracture earlier this year Past surgical history: PCI with stent placement (Jul 2023) Cholecystectomy (remote) Prior left hip surgery PICC line placement for osteomyelitis Meds: (To be confirmed with med rec) Allergies: ? Naproxen ? difficulty breathing. Social history: ? Lives at home with family. ? Ambulates with walker. ? Smokes ~50 pack-years, still smoking. ? Denies alcohol or illicit drug use. Family history: Noncontributory Exam Vital Signs Temp Pulse Resp BP Pulse Ox O2 Del Method 97.5 F 115 H 19 125/76 100 Room Air 05/19/25 11:12 05/19/25 11:12 05/19/25 11:12 05/19/25 11:12 05/19/25 11:12 05/19/25 11:12 Narrative Exam GENERAL: Awake, answering questions appropriately, appears stated age, frail appearing HEENT: NC/AT. Moist mucosa. PERRLA/EOMI. CARDIO: Heart RRR, no obvious murmurs, no JVD. PULM: No coughing or visible SOB. Lungs CTA B/L. GI: Abdomen soft, NT/ND, +BS. SKIN/MSK/EXT: Atrophic bilateral lower extremities, right AC PICC line noted. Right toe bandaged secondary to osteomyelitis. Left hip/femur replaced. No discoloration/rashes/edema/amputations noted. +Pedal pulses present B/L. NEURO: Oriented x3, no focal neurologic deficits noted. Results: Labs 05/19/25 06:27 05/19/25 06:27 Labs: Short CBC 05/19/25 Range/Units 06:27 WBC 8.9 D (3.8-10.6) Thou/mm3 Hgb 7.3 L (13.5-16.0) g/dL Hct 21.4 L* (41.0-53.0) % Plt Count 254 D (140-440) Thou/mm3 BMP 05/19/25 06:27 Sodium 131 L Potassium 4.3 Chloride 98 Carbon Dioxide 22.2 BUN 11 Creatinine 0.7 Glucose 207 H Calcium 8.3 Liver Function 05/19/25 Range/Units 06:27 Total Bilirubin 0.4 (0.3-1.2) mg/dL AST 15 (0-34) U/L ALT 14 (10-49) U/L Alkaline Phosphatase 91 (46-116) U/L Albumin 2.8 L (3.4-4.8) gm/dL Quality Measures Quality Measures VTE prophylaxis Advance care planning discussed with:: patient Medications Home Medications and Allergies Home Medications ?Medication ?Instructions ?Recorded ?Confirmed ?Type tamsulosin 0.4 mg capsule (Flomax) 0.4 mg PO QDAY ##0 07/15/16 04/30/25 History finasteride 5 mg tablet 5 mg PO QDAY 07/05/19 04/30/25 History docusate sodium 100 mg capsule 1 cap PO BID 03/04/22 04/30/25 History dupilumab 300 mg/2 mL subcutaneous 2 ml subcut PRN PRN Pain 03/04/22 04/30/25 History syringe (Dupixent) metformin 1,000 mg tablet 1 tab PO BID 03/04/22 04/30/25 History multivitamin 1 tab PO QAM 03/04/22 04/30/25 History atorvastatin 80 mg tablet 80 mg PO DAILY 09/01/24 04/30/25 History clopidogrel 75 mg tablet 75 mg PO DAILY 09/01/24 04/30/25 History metoprolol succinate 25 mg 37.5 mg PO DAILY 09/01/24 04/30/25 History tablet,extended release 24 hr Allergies Allergy/AdvReac Type Severity Reaction Status Date / Time naproxen Allergy Severe DIFFICULTY Verified 12/31/24 08:17 BREATHING Visit Medications Acetaminophen (Acetaminophen 325 Mg Tablet) 650 mg PO Q6H PRN PRN Reason: Fever >100.4 pr pain 1-5 Stop: 06/18/25 13:30 Hydrocodone Bitart/Acetaminophen (Hydrocodone/Apap 5/325 Tablet) 1 tab PO Q4HR PRN PRN Reason: Pain Scale 6-10 Stop: 05/24/25 13:30 Atorvastatin Calcium (Atorvastatin Calcium 20 Mg Tablet) 80 mg PO HS [facility] Stop: 06/18/25 20:59 Finasteride (Finasteride 5 Mg Tablet) 5 mg PO QDAY [facility] Stop: 06/18/25 13:44 Ondansetron HCl (Ondansetron Inj 2 Mg/Ml Inj 2 Ml) 4 mg IVP Q6H PRN; Protocol PRN Reason: NAUSEA OR VOMITING Stop: 06/18/25 13:30 Pantoprazole Sodium (Pantoprazole Inj 40 Mg Vial) 40 mg IVP QDAY [facility] Stop: 06/18/25 13:44 Tamsulosin HCl (Tamsulosin Hcl 0.4 Mg Capsule) 0.4 mg PO QDAY [facility] Stop: 06/18/25 13:44 Discontinued Medications Hydromorphone HCl (Hydromorphone Inj 2 Mg/Ml Vial) 1 mg IVP X1 ONE Stop: 05/19/25 13:10 Last Admin: 05/19/25 13:17 Dose: 1 mg Morphine Sulfate (Morphine Sulf Inj 4 Mg/Ml Vial) 2 mg IVP X1 ONE Stop: 05/19/25 07:12 Last Admin: 05/19/25 07:45 Dose: 2 mg Assessment & Plan Plan 79-year-old male with CAD s/p stent, chronic hyponatremia, PAD with active right toe osteomyelitis on IV antibiotics, presenting after a mechanical ground-level fall found to have a displaced intertrochanteric right hip fracture; admitted for optimization and cardiac clearance for surgical repair. #Displaced intertrochanteric fracture, right hip Acute fracture after mechanical fall. Severe pain, classic deformity. Imaging confirms displaced intertrochanteric fracture with subtrochanteric extension. Plan: Admit to medicine for optimization & clearance Orthopedics planning cephalomedullary nail when stable NPO at midnight Pain control with multimodal regimen; avoid oversedation PT/OT postop Continue to monitor for compartment syndrome or neurovascular compromise Trend Hgb post-transfusion #Preoperative cardiac risk assessment (CAD s/p stent 07/2023) High risk given age, CAD, anemia, PAD, current active infection. No chest pain or active cardiac symptoms today. Requires risk stratification for urgent hip repair. Plan: Cardiology consult for clearance Baseline ECG, troponin Continue home cardiac meds once reconciled (except hold anticoagulation if needed per ortho) Avoid hypotension; maintain Hgb >8 #Acute blood loss anemia Hgb 7.3 on arrival. Likely combination of fracture-related blood loss + chronic anemia. Plan: Transfuse 1 PRBC (already initiated) Repeat CBC after transfusion Maintain Hgb >8 for surgery Monitor post-op #Chronic hyponatremia/SIADH? Na 131, stable near baseline. Recently discharged on salt tabs, fluid restriction. Plan: Continue home salt tablets Trend Na daily Avoid aggressive fluids unless needed for hemodynamics If worsening, consult nephrology (Dr. Marquez follows outpatient) #Right great toe chronic osteomyelitis (active infection) On IV ceftriaxone + doxycycline through 06/11 via PICC. Plan: Continue IV antibiotics per prior plan Daily wound care Notify ortho of operative infection risk Monitor for systemic infection (WBC, fever) #Type 2 diabetes mellitus Mild hyperglycemia on arrival (glucose 207). Plan: Basal insulin per home regimen SSI inpatient Glucose checks qACHS Hold metformin pre-op #Hypertension BP 125/76 Plan: Resume home antihypertensives after med rec Avoid hypotension pre-op, especially with anemia #Peripheral arterial disease Chronic; contributes to osteomyelitis risk. Plan: Continue PAD management Monitor distal perfusion post-surgery #BPH Plan: Continue home tamsulosin/finasteride once reconciled Monitor for urinary retention Hospital management: Diet: NPO at midnight for possible OR DVT Prophylaxis: Hold heparin pre-op; use SCDs GI Prophylaxis: Not indicated Bowel regimen: PRN Code Status: Full Code Disposition: Admit to telemetry; surgery planned once cleared ----- Plan discussed with attending physician Dr. Bains and senior resident Dr. Hunter Bartholomew MD PGY-1 Internal Medicine
[2025-05-19] MEDS: TAMSULOSIN HCL 0.4 MG CAPSULE PO (14:14)
[2025-05-19] MEDS: FINASTERIDE 5 MG TABLET PO (14:15)
--- NOTE | 2025-05-19 14:16 | PC.NURSE ---
REPORT CALLED TO DEBORAH CAMILO PATIENT WILL BE ADMITTED
--- NOTE | 2025-05-19 15:48 | PC.NURSE ---
Called NExt of kin to get consent for blood , left voicemail to call me back
[2025-05-19] MEDS: cefTRIAXone 2 GM in SODIUM CHLORIDE 0.9% (Popper) 50 ML IV (16:02)
--- NOTE | 2025-05-19 16:20 | PC.NURSE ---
Notified that Prbc transfusion is on hold due to unable to get consent
--- NOTE | 2025-05-19 16:53 | PC.WOUND ---
Spoke with Dr. Quispe regarding right great toe, hip fx with plan for surgical intervention tomorrow. Will see patient when able.
--- NOTE | 2025-05-19 19:00 | PC.NURSE ---
Report received, pt pending blood transfusion unable during the day to obtain consent. Will attempt to call daughter.
--- NOTE | 2025-05-19 19:10 | PD.RESCONSUL ---
HPI Data of Consult Patient: new to practice Consult date: 05/19/25 Requesting Physician: Emil Barton MD Admitting Provider: Donis Bains MD Attending Provider: Nathan Larios MD Primary Care Provider: Narciso Mancini Consult Narrative Reason for consult: Cardiac Clearance History of present illness: Mr. Scott is a 79-year-old male with past medical history of hypertension, hyperlipidemia, type 2 diabetes mellitus, CAD status post coronary stents July 2023, peripheral arterial disease, BPH, SIADH, chronic hyponatremia, history of GI bleed (internal hemorrhoids) and osteomyelitis hallux of right distal hallux who presented to [facility] emergency department on 05/19/2025 with a chief complaint of mechanical ground-level fall, patient was found to have displaced intertrochanteric right hip fracture. Patient was orthopedic patient reported that he was walking with his walker earlier this morning when he tripped and fell to his left side., Denies any loss of consciousness or presyncopal symptoms, chest pain shortness of breath. Patient admitted for further management of the fracture, cardiology consulted for preop cardiac clearance. ED Course: ED Vitals: On presentation blood pressure 127/69, heart rate 102, respiratory 16, temp 98.1, O2 sat 100 on room air ED Labs: Your labs show hemoglobin 7.3, hematocrit 21.4%, RBC 2.25, sodium 131, potassium 4.3, bicarb 22.2, chloride 90, BUN 11, creatinine 0.7, GFR greater than 60, glucose 207, osmolality 260, corrected calcium 9.3, AST ALT and alk phos within normal limits, total protein 5.6, albumin 2.8. ED Imaging:Hip pelvis x-ray shows acute intertrochanteric appearing fracture right hip, femur x-ray shows similar findings, both studies were repeated. Hip CT shows new comminuted intertrochanteric fracture of proximal right femur, chronic enlargement of prostate, fecal filled colon. Hip x-ray obtained with reduction by Dr. Malik shows acute intertrochanteric angulated fracture right hip. ED Treatment: cc:: cc: Emil Barton MD Review of Systems Review of Systems Systems Reviewed: All systems reviewed, normal except as documented Past Medical History Past Medical History Comments PMH COMMENT: Past medical history: Recurrent hyponatremia / SIADH Hypertension Type 2 diabetes mellitus CAD s/p stents Jul 2023 Peripheral arterial disease Osteomyelitis of right hallux (on IV antibiotics via PICC) BPH History of left hip fracture earlier this year Past surgical history: PCI with stent placement (Jul 2023) Cholecystectomy (remote) Prior left hip surgery PICC line placement for osteomyelitis Allergies: ? Naproxen ? difficulty breathing. Social history: ? Lives at home with family. ? Ambulates with walker. ? Smokes ~50 pack-years, still smoking. ? Denies alcohol or illicit drug use. Family history: Noncontributory Exam Vital Signs Temp Pulse Resp BP Pulse Ox O2 Del Method 97.5 F 64 18 114/79 96 Room Air 05/19/25 11:12 05/19/25 16:00 05/19/25 16:00 05/19/25 16:00 05/19/25 16:00 05/19/25 16:00 Narrative Exam Physical Exam: GENERAL: Awake, answering questions appropriately, appears stated age, frail appearing HEENT: NC/AT. Moist mucosa. PERRLA/EOMI. CARDIO: Heart RRR, no obvious murmurs, no JVD. PULM: No coughing or visible SOB. Lungs CTA B/L. GI: Abdomen soft, NT/ND, +BS. SKIN/MSK/EXT: Atrophic bilateral lower extremities, right AC PICC line noted. Right toe bandaged secondary to osteomyelitis. Right leg is shorter internally rotated. No discoloration/rashes/edema/amputations noted. +Pedal pulses present B/L. NEURO: Oriented x3, no focal neurologic deficits noted. Results Labs 05/19/25 06:27 05/19/25 06:27 Labs: Short CBC 05/19/25 Range/Units 06:27 WBC 8.9 D (3.8-10.6) Thou/mm3 Hgb 7.3 L (13.5-16.0) g/dL Hct 21.4 L* (41.0-53.0) % Plt Count 254 D (140-440) Thou/mm3 BMP 05/19/25 06:27 Sodium 131 L Potassium 4.3 Chloride 98 Carbon Dioxide 22.2 BUN 11 Creatinine 0.7 Glucose 207 H Calcium 8.3 Liver Function 05/19/25 Range/Units 06:27 Total Bilirubin 0.4 (0.3-1.2) mg/dL AST 15 (0-34) U/L ALT 14 (10-49) U/L Alkaline Phosphatase 91 (46-116) U/L Albumin 2.8 L (3.4-4.8) gm/dL Quality Measures Quality Measures VTE prophylaxis Advance care planning discussed with:: patient Medications Home Medications and Allergies Home Medications ?Medication ?Instructions ?Recorded ?Confirmed ?Type tamsulosin 0.4 mg capsule (Flomax) 0.4 mg PO BID ##0 07/15/16 05/19/25 History finasteride 5 mg tablet 5 mg PO QDAY 07/05/19 05/19/25 History docusate sodium 100 mg capsule 1 cap PO BID 03/04/22 05/19/25 History metformin 1,000 mg tablet 1 tab PO BID 03/04/22 05/19/25 History multivitamin 1 tab PO QAM 03/04/22 05/19/25 History atorvastatin 80 mg tablet 80 mg PO DAILY 09/01/24 05/19/25 History clopidogrel 75 mg tablet 75 mg PO DAILY 09/01/24 05/19/25 History metoprolol succinate 25 mg 37.5 mg PO DAILY 09/01/24 05/19/25 History tablet,extended release 24 hr empagliflozin 10 mg tablet 10 mg PO QDAY 05/19/25 05/19/25 History (Jardiance) Allergies Allergy/AdvReac Type Severity Reaction Status Date / Time naproxen Allergy Severe DIFFICULTY Verified 12/31/24 08:17 BREATHING Visit Medications Acetaminophen (Acetaminophen 325 Mg Tablet) 650 mg PO Q6H PRN PRN Reason: Fever >100.4 pr pain 1-5 Stop: 06/18/25 13:30 Hydrocodone Bitart/Acetaminophen (Hydrocodone/Apap 5/325 Tablet) 1 tab PO Q4HR PRN PRN Reason: Pain Scale 6-10 Stop: 05/24/25 13:30 Atorvastatin Calcium (Atorvastatin Calcium 20 Mg Tablet) 80 mg PO HS HUMBERTO Stop: 06/18/25 20:59 Dextrose (Dextrose 50%-Water Inj 50 Ml Syringe) 25 ml IV Q15MIN PRN PRN Reason: BG 50-70 responsive npo pt Stop: 06/18/25 15:24 Dextrose (Dextrose 50%-Water Inj 50 Ml Syringe) 50 ml IV Q15MIN PRN PRN Reason: BG <50 OR BG <70 & pt unresponsive Stop: 06/18/25 15:24 Doxycycline Hyclate (Doxycycline 100 Mg Tablet) 100 mg PO BID [facility] Stop: 05/26/25 20:59 Finasteride (Finasteride 5 Mg Tablet) 5 mg PO QDAY [facility] Stop: 06/18/25 13:44 Last Admin: 05/19/25 14:15 Dose: 5 mg Glucagon (Glucagon Inj 1 Mg Vial) 1 mg IM Q15MIN PRN PRN Reason: BG <70, and no IV access Ceftriaxone Sodium 2 gm/ (Sodium Chloride) 50 mls @ 100 mls/hr IV QDAY@1400 [facility] Stop: 05/26/25 15:43 Last Admin: 05/19/25 16:02 Dose: 100 mls/hr Insulin Human Lispro (Insulin Lispro (Admelog) 1 Unit/0.01 Ml Unit) 0 unit SC AC [facility]; Protocol Stop: 06/18/25 16:59 Last Admin: 05/19/25 17:36 Dose: Not Given Ondansetron HCl (Ondansetron Inj 2 Mg/Ml Inj 2 Ml) 4 mg IVP Q6H PRN; Protocol PRN Reason: NAUSEA OR VOMITING Stop: 06/18/25 13:30 Pantoprazole Sodium (Pantoprazole Inj 40 Mg Vial) 40 mg IVP QDAY [facility] Stop: 06/18/25 13:44 Last Admin: 05/19/25 14:15 Dose: 40 mg Sodium Chloride (Sodium Chloride 1 Gm Tablet) 1 gm PO TID [facility] Stop: 06/18/25 21:59 Tamsulosin HCl (Tamsulosin Hcl 0.4 Mg Capsule) 0.4 mg PO QDAY [facility] Stop: 06/18/25 13:44 Last Admin: 05/19/25 14:14 Dose: 0.4 mg Discontinued Medications Hydromorphone HCl (Hydromorphone Inj 2 Mg/Ml Vial) 1 mg IVP X1 ONE Stop: 05/19/25 13:10 Last Admin: 05/19/25 13:17 Dose: 1 mg Morphine Sulfate (Morphine Sulf Inj 4 Mg/Ml Vial) 2 mg IVP X1 ONE Stop: 05/19/25 07:12 Last Admin: 05/19/25 07:45 Dose: 2 mg Assessment & Plan Plan Assessment and plan: Summary: Mr. Scott is a 79-year-old male with past medical history of hypertension, hyperlipidemia, type 2 diabetes mellitus, CAD status post coronary stent July 2023, peripheral arterial disease, BPH, SIADH, chronic hyponatremia, history of GI bleed (internal hemorrhoids) and osteomyelitis hallux of right distal hallux who presented to [facility] emergency department on 05/19/2025 with a chief complaint of mechanical ground-level fall, patient was found to have displaced intertrochanteric right hip fracture. Cardiology consulted for pre-op clearance. #Pre-op cardiac risk assessment #CAD status post PCI July 2023 Presented with ground-level mechanical fall, found to have displaced intertrochanteric right hip fracture in the ER confirmed on imaging. Orthopedics consulted, plan to undergo surgery in AM. Patient denies any chest pain/pressure, palpitations, dizziness, shortness of breath, leg swelling, presyncope and syncopal symptoms. Cardiology consulted for preop clearance clearance considering history of CAD. Cardiac catheterization report from July 2023: Patient underwent successful PCI right coronary artery posterior descending branch, 95% preprocedure stenosis was noted in the vessel. Additional stent was placed in PL branch of RCA. Cardiac cath findings August 2024: Widely patent stent involving the right coronary artery PDA, PL branches. Moderate disease of distal left anterior descending artery to be managed medically. Calcification of LAD, left main and circumflex arteries. No significant obstructive disease. Normal left ventricular function. Patient has been compliant on medication regimen currently on Plavix 75 mg and atorvastatin 80 mg along with metoprolol succinate 37.5 mg daily. Patient is established with silver solution mixer Dr. Dalila Mcdaniel and follows him outpatient. TSH 04/29/2025 1.48, lipid panel 05/01/2025 triglyceride 58, cholesterol 64, LDL 17, HDL 35, cholesterol/HDL ratio 1.8, A1c 04/29/2025 6.7 Patient's previous echo from August 2024 normal LV function LVEF 60%, technically difficult study. EKG obtained today shows sinus rhythm, frequent PVCs, some T wave inversion noted on V1?V3 Revised cardiac risk index score?2 points HEART score for Major Cardiac events?6 points, risk of mace 12-16% METS less than 4 Echocardiogram obtained today shows 1. Left ventricle size is normal and systolic function is normal. Estimated ejection fraction is 55-60%. There is indeterminate diastolic function. 2. Right ventricle chamber size is normal and systolic function is normal. Estimated RVSP is 18 mmHg. 3. There is trace mitral valve regurgitation. 4. There is trace tricuspid valve regurgitation. 5. Not well visualized IVC with estimated RA pressure 8 mmHg. Recommendations: ? Agree with holding Plavix prior to surgery as patient's stents were placed more than 1 year ago. ? Based on patient's cardiac risk, patient is at acceptable but mildly elevated cardiac risk for surgery. No further cardiac workup needed as patient recently had angiogram earlier this year along with echo now. ? Keep potassium greater than 4 and magnesium greater than 2 at all times, PVCs noted on EKG, magnesium has been low in the past, will order 2 g magnesium prophylactically. ? Recommend transfusing 2 units PRBC prior to surgery, keep hemoglobin greater than 8 #Hypertension #Hyperlipidemia #Peripheral arterial disease Patient on metoprolol 37.5 mg daily, atorvastatin 80 mg at bedtime. ?Consider resuming atorvastatin and metoprolol #Type 2 diabetes mellitus #BPH #SIADH #Chronic hyponatremia #History of GI bleed #Osteomyelitis hallux of right distal hallux #Constipation Management as per primary team. Thank you for the consult and allowing to participate in the care of the patient. Cardiology will continue to follow. Case discussed with Attending Physician Dr. Nathan Daniel MD Internal Medicine PGY-2 Disclaimer: This note was dictated by speech recognition. Minor errors in ediscovery project manager may be present due to voice recognition software. Attending Provider Attestation/Addendum I have personally seen and examined the patient separately on the above date of service and discussed the plan of care with the resident. I reviewed the resident Dr. Adina Daniel consultation progress note and agree with the resident findings and plan in the note above and have also edited the documentation to reflect my findings and plan. Nathan Larios M.D. Interventional Cardiology
--- NOTE | 2025-05-19 19:55 | PC.NURSE ---
Called spoke with pt daughter Colette Cooper regarding surgery consent and blood transfusion consent, ok to do both per daughter x2 nurses verified.
[2025-05-19] MEDS: HYDROcodone/APAP 5/325 TABLET 1 TAB PO (20:20)
[2025-05-19] MEDS: Magnesium Sulfate 2 GM Ivpb 2 GM/50 ML BAG IV (20:20)
--- NOTE | 2025-05-19 20:41 | PC.NURSE ---
Rapid response called pt HR sustaining in 140's-150's.
--- NOTE | 2025-05-19 20:44 | EKG_ITS ---
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 : 1945 Requested By: Adrian Gaspar Order Number: [id number] Reading MD: Adrian Gaspar Measurements Intervals [place] Rate: 147 P: -88 ND: 146 QRS: 55 QRSD: 76 T: 199 QT: 255 QTc: 399 Interpretive Statements SINUS TACHYCARDIA, POSSIBLE ATRIAL FLUTTER ST DEVIATION AND MODERATE T-WAVE ABNORMALITY, CONSIDER ANTEROLATERAL ISCHEMIA ST DEVIATION AND MODERATE T-WAVE ABNORMALITY, CONSIDER INFERIOR ISCHEMIA Compared to ECG 05/19/2025 15:14:08 Possible ischemia now present Sinus rhythm no longer present Ventricular premature complex(es) no longer present T-wave abnormality still present /store/S0/[id number]/ecg/[id number].pdf
[2025-05-19 21:25] LABS: Troponin I < 0.020 ng/mL (0.0-0.045)
--- NOTE | 2025-05-19 21:58 | EVENTNT_ITS ---
Documentation for date of: 05/19/25 Event Note Event Note: Rapid response was called around 9 PM the evening of 05/19/2025 for tachycardia in the 140s. A troponin was ordered and was negative. EKG showed sinus tachycardia. Patient received a one-time dose of 2.5 mg metoprolol tartrate IV. Follow-up pulse check showed a heart rate of 87 and a blood pressure of 114/70. He was also ordered a one-time 0.5 mg dose of IV Dilaudid for throbbing pain that he endorsed in his bilateral hips. On exam, the patient was awake and talking and protecting his airway. Previous EKG earlier in the day showed sinus rhythm with a rate of 98 with occasional PVCs. The culprit for the precipitation of this episode of tachycardia was likely related to pain. The patient was seen and discussed with my senior resident Dr. Lyla AVILA PGY- 2. Adrian Gaspar DO PGY-1.
[2025-05-19] MEDS: ATORVASTATIN CALCIUM 20 MG TABLET 80 MG PO (22:10)
[2025-05-19] MEDS: DOXYCYCLINE 100 MG TABLET PO (22:10)
[2025-05-19] MEDS: SODIUM CHLORIDE 1 GM TABLET PO (22:10)
--- NOTE | 2025-05-19 23:45 | PC.NURSE ---
Blood transfusion complete no s/s of reaction noted, will input lab order for post H/H per order.
[2025-05-20] VITALS (15 sets, daily range): BP systolic 101–148; BP diastolic 54–70; PULSE 41–90; RESP 16–99; TEMP 36.2–36.6; O2SAT 94–100; BMI 18.0
[2025-05-20 01:19] LABS: Hematocrit 27.8 % (41.0-53.0); Hemoglobin 9.2 g/dL (13.5-16.0)
[2025-05-20] MEDS: HYDROmorphone INJ 2 MG/ML VIAL 0.5 MG IVP (01:58)
[2025-05-20 06:00] LABS: INR 1.0 (0.9-1.3); Partial Thromboplastin Time 31.9 Seconds (22.0-36.0); Prothrombin Time 11.1 Seconds (9.0-12.2)
[2025-05-20 06:03] LABS: Basophils # (Auto) 0.0 Thou/mm3 (0.0-0.2); Basophils % (Auto) 0 % (0-2.5); Eosinophils # (Auto) 0.1 Thou/mm3 (0.0-0.5); Eosinophils % (Auto) 1 % (0-10); Hematocrit 22.8 % (41.0-53.0); Immature Granulocytes Auto 0.04 Thou/mm3 (0.00-0.00); Lymphocytes # (Auto) 0.9 Thou/mm3 (1.0-4.8); Lymphocytes % (Auto) 13 % (10-50); Mean Corpuscular HGB Conc 34.2 g/dl (31.0-37.0); Mean Corpuscular Hemoglobin 31.5 pg (25.0-35.0); Mean Corpuscular Volume 92 fL (80-100); Monocytes # (Auto) 0.6 Thou/mm3 (0.0-0.8); Monocytes % (Auto) 9 % (0-12); Neutrophils # (Auto) 5.2 Thou/mm3 (1.8-7.7); Neutrophils % (Auto) 77 % (37-80); Nucleated Red Blood Cell # 0.00 Thou/mm3 (0.00-0.00); Nucleated Red Blood Cell % 0 /100 WBC (0); Platelet Count 225 Thou/mm3 (140-440); RDW Standard Deviation 57.1 fL (35.1-43.9); Red Blood Count 2.48 Miln/mm3 (4.50-5.90); White Blood Count 6.8 Thou/mm3 (3.8-10.6)
[2025-05-20 06:09] LABS: Alanine Aminotransferase 19 U/L (10-49); Albumin, Serum 2.6 gm/dL (3.4-4.8); Albumin/Globulin Ratio 1.0 (1.2-2.2); Alkaline Phosphatase 89 U/L (46-116); Anion Gap 8 (7-16); Aspartate Amino Transferase 23 U/L (0-34); BUN/Creatinine Ratio 18 Ratio (12-20); Bilirubin,Total 0.9 mg/dL (0.3-1.2); Blood Urea Nitrogen 11 mg/dL (9-23); Calcium 7.9 mg/dL (8.3-10.6); Calcium (Corrected) 9.0 mg/dL (8.5-10.1); Carbon Dioxide 24.3 mMol/L (20.0-31.0); Chloride 100 mMol/L (98-107); Creatinine (Component) 0.6 mg/dL (0.6-1.3); Estimated Creatinine Clearance 76.9 mL/min (>60); Globulin 2.6 gm/dL (2.3-3.5); Glucose 147 mg/dL (74-106); Magnesium 1.6 mg/dL (1.6-2.6); Osmolality,Calculated 266 (275-295); Phosphorous 4.2 mg/dL (2.4-5.1); Potassium 4.2 mMol/L (3.4-5.1); Sodium 132 mMol/L (136-145); Total Protein 5.2 gm/dL (5.7-8.2); eGFR > 60 See Note
[2025-05-20 06:12] LABS: Hemoglobin 7.8 g/dL (13.5-16.0)
[2025-05-20] MEDS: METOPROLOL SUCCINATE XL 25 MG TABCR 37.5 MG PO (08:07)
--- NOTE | 2025-05-20 09:06 | PD.RESPRO ---
Documentation for date of: 05/20/25 Subjective Subjective Interval history: Patient seen and examined at bedside, no active complaints. Scheduled for surgery today. TTE completed yesterday. Patient is at acceptable but mildly elevated cardiac risk for surgery. No further cardiac workup needed as patient recently had angiogram earlier this year along with Echocardiogram yesterday. Exam Vital Signs Temp Pulse Resp BP Pulse Ox O2 Del Method 97.8 F 77 16 111/54 L 99 Room Air 05/20/25 08:26 05/20/25 08:26 05/20/25 08:26 05/20/25 08:26 05/20/25 08:26 05/20/25 07:33 Narrative Exam Physical Exam: GENERAL: Awake, answering questions appropriately, appears stated age, frail appearing HEENT: NC/AT. Moist mucosa. PERRLA/EOMI. CARDIO: Heart RRR, no obvious murmurs, no JVD. PULM: No coughing or visible SOB. Lungs CTA B/L. GI: Abdomen soft, NT/ND, +BS. SKIN/MSK/EXT: Atrophic bilateral lower extremities, right AC PICC line noted. Right toe bandaged secondary to osteomyelitis. Right leg is shorter internally rotated. No discoloration/rashes/edema/amputations noted. +Pedal pulses present B/L. NEURO: Oriented x3, no focal neurologic deficits noted. Objective Labs 05/20/25 16:36 05/20/25 04:13 Labs: Laboratory Results - last 24 hr 05/19/25 05/19/25 05/20/25 13:46 20:58 00:52 WBC RBC Hgb 9.2 L D Hct 27.8 L MCV MCH MCHC RDW Std Deviation Plt Count Neut % (Auto) Lymph % (Auto) [place] % (Auto) Eos % (Auto) Baso % (Auto) Neut # (Auto) Lymph # (Auto) [place] # (Auto) Eos # (Auto) Baso # (Auto) Immature Gran # (Auto) Absolute Nucleated RBC Immature Gran % Nucleated RBC % PT INR APTT Sodium Potassium Chloride Carbon Dioxide Anion Gap BUN Creatinine Estim Creat Clear Calc eGFR BUN/Creatinine Ratio Glucose Calculated Osmolality Calcium Corrected Calcium Phosphorus Magnesium Total Bilirubin AST ALT Alkaline Phosphatase Troponin I < 0.020 Total Protein Albumin Globulin Albumin/Globulin Ratio Blood Type O Positive Antibody Screen NEGATIVE Crossmatch See Detail Blood Bank Wristband ID Yes 05/20/25 04:13 WBC 6.8 RBC 2.48 L Hgb 7.8 L Hct 22.8 L MCV 92 MCH 31.5 MCHC 34.2 RDW Std Deviation 57.1 H Plt Count 225 Neut % (Auto) 77 Lymph % (Auto) 13 [place]erry % (Auto) 9 Eos % (Auto) 1 Baso % (Auto) 0 Neut # (Auto) 5.2 Lymph # (Auto) 0.9 L [place] # (Auto) 0.6 Eos # (Auto) 0.1 Baso # (Auto) 0.0 Immature Gran # (Auto) 0.04 H Absolute Nucleated RBC 0.00 Immature Gran % 1 H Nucleated RBC % 0 PT 11.1 INR 1.0 APTT 31.9 Sodium 132 L Potassium 4.2 Chloride 100 Carbon Dioxide 24.3 Anion Gap 8 BUN 11 Creatinine 0.6 Estim Creat Clear Calc 76.9 eGFR > 60 BUN/Creatinine Ratio 18 Glucose 147 H D Calculated Osmolality 266 L Calcium 7.9 L Corrected Calcium 9.0 Phosphorus 4.2 Magnesium 1.6 Total Bilirubin 0.9 D AST 23 ALT 19 Alkaline Phosphatase 89 Troponin I Total Protein 5.2 L Albumin 2.6 L Globulin 2.6 Albumin/Globulin Ratio 1.0 L Blood Type Antibody Screen Crossmatch Blood Bank Wristband ID Quality Measures Quality Measures VTE prophylaxis Advance care planning discussed with:: patient Assessment & Plan Assessment Current Active Medications: Generic Name Dose Route Start Last Admin Trade Name Freq PRN Reason Stop Dose Admin Acetaminophen 650 mg 05/19/25 13:31 Acetaminophen 325 Mg Tablet PO 06/18/25 13:30 Q6H PRN Fever >100.4 pr pain 1-5 Hydrocodone Bitart/Acetaminophen 1 tab 05/19/25 13:31 05/19/25 20:20 Hydrocodone/Apap 5/325 Tablet PO 05/24/25 13:30 1 tab Q4HR PRN Administration Pain Scale 6-10 Atorvastatin Calcium 80 mg 05/19/25 21:00 05/19/25 22:10 Atorvastatin Calcium 20 Mg Tablet PO 06/18/25 20:59 80 mg HS HUMBERTO Administration Dextrose 25 ml 05/19/25 15:25 Dextrose 50%-Water Inj 50 Ml Syringe IV 06/18/25 15:24 Q15MIN PRN BG 50-70 responsive npo pt Dextrose 50 ml 05/19/25 15:25 Dextrose 50%-Water Inj 50 Ml Syringe IV 06/18/25 15:24 Q15MIN PRN BG <50 OR BG <70 & pt unresponsive Doxycycline Hyclate 100 mg 05/19/25 21:00 05/19/25 22:10 Doxycycline 100 Mg Tablet PO 05/26/25 20:59 100 mg BID HUMBERTO Administration Finasteride 5 mg 05/19/25 13:45 05/19/25 14:15 Finasteride 5 Mg Tablet PO 06/18/25 13:44 5 mg QDAY HUMBERTO Administration Glucagon 1 mg 05/19/25 15:25 Glucagon Inj 1 Mg Vial IM Q15MIN PRN BG <70, and no IV access Ceftriaxone Sodium 2 gm/ 50 mls @ 100 mls/hr 05/19/25 15:44 05/19/25 16:02 Sodium Chloride IV 05/26/25 15:43 100 mls/hr QDAY@1400 HUMBERTO Administration Insulin Human Lispro 0 unit 05/19/25 17:00 05/20/25 06:43 Insulin Lispro (Admelog) 1 Unit/0.01 Ml Unit SC 06/18/25 16:59 Not Given AC HUMBERTO Protocol Metoprolol Succinate 37.5 mg 05/20/25 09:00 05/20/25 08:07 Metoprolol Succinate Xl 25 Mg Tabcr PO 06/19/25 08:59 37.5 mg DAILY HUMBERTO Administration Ondansetron HCl 4 mg 05/19/25 13:31 Ondansetron Inj 2 Mg/Ml Inj 2 Ml IVP 06/18/25 13:30 Q6H PRN NAUSEA OR VOMITING Protocol Pantoprazole Sodium 40 mg 05/19/25 13:45 05/20/25 08:06 Pantoprazole Inj 40 Mg Vial IVP 06/18/25 13:44 40 mg QDAY HUMBERTO Administration Sodium Chloride 1 gm 05/19/25 22:00 05/20/25 05:42 Sodium Chloride 1 Gm Tablet PO 06/18/25 21:59 Not Given TID HUMBERTO Tamsulosin HCl 0.4 mg 05/19/25 13:45 05/19/25 14:14 Tamsulosin Hcl 0.4 Mg Capsule PO 06/18/25 13:44 0.4 mg QDAY HUMBERTO Administration Plan Assessment and plan: Summary: Mr. Scott is a 79-year-old male with past medical history of hypertension, hyperlipidemia, type 2 diabetes mellitus, CAD status post coronary stent July 2023, peripheral arterial disease, BPH, SIADH, chronic hyponatremia, history of GI bleed (internal hemorrhoids) and osteomyelitis hallux of right distal hallux who presented to [facility] emergency department on 05/19/2025 with a chief complaint of mechanical ground-level fall, patient was found to have displaced intertrochanteric right hip fracture. Cardiology consulted for pre-op clearance. #Pre-op cardiac risk assessment #CAD status post PCI July 2023 Presented with ground-level mechanical fall, found to have displaced intertrochanteric right hip fracture in the ER confirmed on imaging. Orthopedics consulted, plan to undergo surgery in AM. Patient denies any chest pain/pressure, palpitations, dizziness, shortness of breath, leg swelling, presyncope and syncopal symptoms. Cardiology consulted for preop clearance clearance considering history of CAD. Cardiac catheterization report from July 2023: Patient underwent successful PCI right coronary artery posterior descending branch, 95% preprocedure stenosis was noted in the vessel. Additional stent was placed in PL branch of RCA. Cardiac cath findings August 2024: Widely patent stent involving the right coronary artery PDA, PL branches. Moderate disease of distal left anterior descending artery to be managed medically. Calcification of LAD, left main and circumflex arteries. No significant obstructive disease. Normal left ventricular function. Patient has been compliant on medication regimen currently on Plavix 75 mg and atorvastatin 80 mg along with metoprolol succinate 37.5 mg daily. Patient is established with restaurant service manager Dr. Dalila Mcdaniel and follows him outpatient. TSH 04/29/2025 1.48, lipid panel 05/01/2025 triglyceride 58, cholesterol 64, LDL 17, HDL 35, cholesterol/HDL ratio 1.8, A1c 04/29/2025 6.7 Patient's previous echo from August 2024 normal LV function LVEF 60%, technically difficult study. EKG obtained today shows sinus rhythm, frequent PVCs, some T wave inversion noted on V1?V3 Revised cardiac risk index score?2 points HEART score for Major Cardiac events?6 points, risk of mace 12-16% METS less than 4 Echocardiogram obtained today shows 1. Left ventricle size is normal and systolic function is normal. Estimated ejection fraction is 55-60%. There is indeterminate diastolic function. 2. Right ventricle chamber size is normal and systolic function is normal. Estimated RVSP is 18 mmHg. 3. There is trace mitral valve regurgitation. 4. There is trace tricuspid valve regurgitation. 5. Not well visualized IVC with estimated RA pressure 8 mmHg. Recommendations: ? Agree with holding Plavix prior to surgery as patient's stents were placed more than 1 year ago. ? Based on patient's cardiac risk, patient is at acceptable but mildly elevated cardiac risk for surgery. No further cardiac workup needed as patient recently had angiogram earlier this year along with echo now. ? Keep potassium greater than 4 and magnesium greater than 2 at all times. ? Recommend transfusing pRBC prn, keep hemoglobin greater than 8 #Hypertension #Hyperlipidemia #Peripheral arterial disease Patient on metoprolol 37.5 mg daily, atorvastatin 80 mg at bedtime. ?Consider resuming atorvastatin and metoprolol #Type 2 diabetes mellitus #BPH #SIADH #Chronic hyponatremia #History of GI bleed #Osteomyelitis hallux of right distal hallux #Constipation Management as per primary team. Thank you for the consult and allowing to participate in the care of the patient. Cardiology will continue to follow. Case discussed with Attending Physician Dr. Nathan Daniel MD Internal Medicine PGY-2 Disclaimer: This note was dictated by speech recognition. Minor errors in procurement technician may be present due to voice recognition software. Attending Provider Attestation/Addendum I have personally seen and examined the patient separately on the above date of service and discussed the plan of care with the resident. I reviewed the resident Dr. Adina Daniel consultation progress note and agree with the resident findings and plan in the note above and have also edited the documentation to reflect my findings and plan. Nathan Larios M.D. Interventional Cardiology
--- NOTE | 2025-05-20 11:37 | ESPR_ITS ---
Documentation for date of: 05/20/25 Subjective Subjective Interval history: No acute overnight events. Patient reports worsening right great toe osteomyelitis since his last admission, with wound care confirming deterioration in the condition (now wet). The patient has received 2 units of PRBC (Hgb 7.8) for blood loss associated with the fracture and is medically stable for surgery. No new complaints other than hip pain and worsening toe condition. He is alert and oriented, in no acute distress aside from pain from the fracture. Exam Vital Signs Temp Pulse Resp BP Pulse Ox O2 Del Method 97.3 F 90 18 148/70 H 99 Room Air 05/20/25 11:34 05/20/25 11:34 05/20/25 11:34 05/20/25 11:34 05/20/25 09:11 05/20/25 07:33 Narrative Exam GENERAL: Awake, answering questions appropriately, appears stated age, frail appearing HEENT: NC/AT. Moist mucosa. PERRLA/EOMI. CARDIO: Heart RRR, no obvious murmurs, no JVD. PULM: No coughing or visible SOB. Lungs CTA B/L. GI: Abdomen soft, NT/ND, +BS. SKIN/MSK/EXT: Atrophic bilateral lower extremities, right AC PICC line noted. Right toe bandaged secondary to osteomyelitis. Left hip/femur replaced. No discoloration/rashes/edema/amputations noted. +Pedal pulses present B/L. NEURO: Oriented x3, no focal neurologic deficits noted. Objective Labs 05/21/25 05:25 05/21/25 05:25 Labs: Laboratory Results - last 24 hr 05/19/25 05/19/25 05/20/25 13:46 20:58 00:52 WBC RBC Hgb 9.2 L D Hct 27.8 L MCV MCH MCHC RDW Std Deviation Plt Count Neut % (Auto) Lymph % (Auto) [place] % (Auto) Eos % (Auto) Baso % (Auto) Neut # (Auto) Lymph # (Auto) [place] # (Auto) Eos # (Auto) Baso # (Auto) Immature Gran # (Auto) Absolute Nucleated RBC Immature Gran % Nucleated RBC % PT INR APTT Sodium Potassium Chloride Carbon Dioxide Anion Gap BUN Creatinine Estim Creat Clear Calc eGFR BUN/Creatinine Ratio Glucose Calculated Osmolality Calcium Corrected Calcium Phosphorus Magnesium Total Bilirubin AST ALT Alkaline Phosphatase Troponin I < 0.020 Total Protein Albumin Globulin Albumin/Globulin Ratio Blood Type O Positive Antibody Screen NEGATIVE Crossmatch See Detail Blood Bank Wristband ID Yes 05/20/25 04:13 WBC 6.8 RBC 2.48 L Hgb 7.8 L Hct 22.8 L MCV 92 MCH 31.5 MCHC 34.2 RDW Std Deviation 57.1 H Plt Count 225 Neut % (Auto) 77 Lymph % (Auto) 13 [place] % (Auto) 9 Eos % (Auto) 1 Baso % (Auto) 0 Neut # (Auto) 5.2 Lymph # (Auto) 0.9 L [place] # (Auto) 0.6 Eos # (Auto) 0.1 Baso # (Auto) 0.0 Immature Gran # (Auto) 0.04 H Absolute Nucleated RBC 0.00 Immature Gran % 1 H Nucleated RBC % 0 PT 11.1 INR 1.0 APTT 31.9 Sodium 132 L Potassium 4.2 Chloride 100 Carbon Dioxide 24.3 Anion Gap 8 BUN 11 Creatinine 0.6 Estim Creat Clear Calc 76.9 eGFR > 60 BUN/Creatinine Ratio 18 Glucose 147 H D Calculated Osmolality 266 L Calcium 7.9 L Corrected Calcium 9.0 Phosphorus 4.2 Magnesium 1.6 Total Bilirubin 0.9 D AST 23 ALT 19 Alkaline Phosphatase 89 Troponin I Total Protein 5.2 L Albumin 2.6 L Globulin 2.6 Albumin/Globulin Ratio 1.0 L Blood Type Antibody Screen Crossmatch Blood Bank Wristband ID Quality Measures Quality Measures VTE prophylaxis Advance care planning discussed with:: patient Assessment & Plan Assessment Current Active Medications: Generic Name Dose Route Start Last Admin Trade Name Freq PRN Reason Stop Dose Admin Acetaminophen 650 mg 05/19/25 13:31 Acetaminophen 325 Mg Tablet PO 06/18/25 13:30 Q6H PRN Fever >100.4 pr pain 1-5 Hydrocodone Bitart/Acetaminophen 1 tab 05/19/25 13:31 05/19/25 20:20 Hydrocodone/Apap 5/325 Tablet PO 05/24/25 13:30 1 tab Q4HR PRN Administration Pain Scale 6-10 Atorvastatin Calcium 80 mg 05/19/25 21:00 05/19/25 22:10 Atorvastatin Calcium 20 Mg Tablet PO 06/18/25 20:59 80 mg HS HUMBERTO Administration Dextrose 25 ml 05/19/25 15:25 Dextrose 50%-Water Inj 50 Ml Syringe IV 06/18/25 15:24 Q15MIN PRN BG 50-70 responsive npo pt Dextrose 50 ml 05/19/25 15:25 Dextrose 50%-Water Inj 50 Ml Syringe IV 06/18/25 15:24 Q15MIN PRN BG <50 OR BG <70 & pt unresponsive Doxycycline Hyclate 100 mg 05/19/25 21:00 05/19/25 22:10 Doxycycline 100 Mg Tablet PO 05/26/25 20:59 100 mg BID HUMBERTO Administration Finasteride 5 mg 05/19/25 13:45 05/19/25 14:15 Finasteride 5 Mg Tablet PO 06/18/25 13:44 5 mg QDAY HUMBERTO Administration Glucagon 1 mg 05/19/25 15:25 Glucagon Inj 1 Mg Vial IM Q15MIN PRN BG <70, and no IV access Ceftriaxone Sodium 2 gm/ 50 mls @ 100 mls/hr 05/19/25 15:44 05/19/25 16:02 Sodium Chloride IV 05/26/25 15:43 100 mls/hr QDAY@1400 HUMBERTO Administration Insulin Human Lispro 0 unit 05/19/25 17:00 05/20/25 06:43 Insulin Lispro (Admelog) 1 Unit/0.01 Ml Unit SC 06/18/25 16:59 Not Given AC HUMBERTO Protocol Metoprolol Succinate 37.5 mg 05/20/25 09:00 05/20/25 08:07 Metoprolol Succinate Xl 25 Mg Tabcr PO 06/19/25 08:59 37.5 mg DAILY HUMBERTO Administration Ondansetron HCl 4 mg 05/19/25 13:31 Ondansetron Inj 2 Mg/Ml Inj 2 Ml IVP 06/18/25 13:30 Q6H PRN NAUSEA OR VOMITING Protocol Pantoprazole Sodium 40 mg 05/19/25 13:45 05/20/25 08:06 Pantoprazole Inj 40 Mg Vial IVP 06/18/25 13:44 40 mg QDAY HUMBERTO Administration Sodium Chloride 1 gm 05/19/25 22:00 05/20/25 05:42 Sodium Chloride 1 Gm Tablet PO 06/18/25 21:59 Not Given TID HUMBERTO Tamsulosin HCl 0.4 mg 05/19/25 13:45 05/19/25 14:14 Tamsulosin Hcl 0.4 Mg Capsule PO 06/18/25 13:44 0.4 mg QDAY HUMBERTO Administration Plan 79-year-old male with CAD, chronic hyponatremia, PAD, and osteomyelitis of the right toe, presenting after a mechanical fall with displaced right femur fracture; undergoing preoperative optimization for hip surgery tomorrow (05/21/2025) and potential right toe amputation on 05/22/2025, received 2nd unit of blood today due to hemoglobin of 7.8, otherwise stable with no new complaints. #Displaced intertrochanteric fracture, right hip Acute fracture after mechanical fall. Severe pain, classic deformity. Imaging confirms displaced intertrochanteric fracture with subtrochanteric extension. Plan: * Continue pain management with IV morphine. * Surgery scheduled for 05/21/2025 (cephalomedullary nail). * Continue transfusion support (Hgb 7.8). * Cardiology clearance for surgery. (complete) * Monitor for signs of compartment syndrome or neurovascular compromise. * Post-op: PT/OT, hip precautions. #Right great toe chronic osteomyelitis (active infection) On IV ceftriaxone + doxycycline through 06/11 via PICC. Active infection with worsening condition. Plan: * Continue IV antibiotics (ceftriaxone + doxycycline) as scheduled. * Amputation scheduled for 05/22/2025, pending confirmation with General Surgery (Dr. Quispe). * Daily wound care. * Monitor for systemic infection (WBC, fever). #Preoperative cardiac risk assessment (CAD s/p stent 07/2023) [Cleared] High risk given age, CAD, anemia, PAD, current active infection. No chest pain or active cardiac symptoms today. Requires risk stratification for urgent hip repair. Plan: * Cardiology cleared patient * Baseline ECG, troponin * Continue home cardiac meds once reconciled (except hold anticoagulation if needed per ortho) * Avoid hypotension; maintain Hgb >8 #Acute blood loss anemia Hgb 7.3 on arrival. Likely combination of fracture-related blood loss + chronic anemia. Transfused 1 unit and receiving the second unit. Plan: * Transfuse second unit PRBC. * Repeat H&H after transfusion * Maintain Hgb >8 for surgery * Monitor post-op #Chronic hyponatremia/SIADH? Na 131, stable near baseline. Recently discharged on salt tabs, fluid restriction. Na this morning 132 improving Plan: * Continue home salt tablets * Trend Na daily * Avoid aggressive fluids unless needed for hemodynamics * If worsening, consult nephrology (Dr. Alma follows outpatient) #Type 2 diabetes mellitus Mild hyperglycemia on arrival (glucose 207). Glucose 147 this morning Plan: * Basal insulin per home regimen * SSI inpatient * Glucose checks qACHS * Hold metformin pre-op #Hypertension BP 125/76 Plan: * Resume home antihypertensives after med rec * Avoid hypotension pre-op, especially with anemia #Peripheral arterial disease Chronic; contributes to osteomyelitis risk. Plan: * Continue PAD management * Monitor distal perfusion post-surgery #BPH Plan: * Continue home tamsulosin/finasteride once reconciled * Monitor for urinary retention Hospital management: Diet: NPO at midnight for surgery DVT Prophylaxis: Hold heparin pre-op; use SCDs GI Prophylaxis: Not indicated Bowel regimen: PRN Code Status: Full Code Disposition: Admit to telemetry; surgery planned tomorrow. ----- Plan discussed with attending physician Dr. Chika Bartholomew MD PGY-1 Internal Medicine Attending Provider Attestation/Addendum I have seen and examined the patient. I was physically present for the baires portions of the services provided including history, physical exam, diagnosis, treatment plans and orders. I agree with assessment and plan of care as documented by residents. Even though this this note was carefully revised there may still be minor errors in [employer] due to voice recognition software. Shanti Farr MD
[2025-05-20] MEDS: DOXYCYCLINE 100 MG TABLET PO ×2 (12:21→20:37)
[2025-05-20] MEDS: FINASTERIDE 5 MG TABLET PO (12:21)
[2025-05-20] MEDS: TAMSULOSIN HCL 0.4 MG CAPSULE PO (12:22)
[2025-05-20] MEDS: cefTRIAXone 2 GM in SODIUM CHLORIDE 0.9% (Popper) 50 ML IV (14:27)
[2025-05-20] MEDS: SODIUM CHLORIDE 1 GM TABLET PO ×2 (14:27→21:15)
[2025-05-20 16:48] LABS: Hematocrit 24.9 % (41.0-53.0)
[2025-05-20 16:58] LABS: Hemoglobin 8.7 g/dL (13.5-16.0)
[2025-05-20] MEDS: INSULIN LISPRO (AdmeLOG) 1 UNIT/0.01 ML UNIT SC (17:47)
[2025-05-20] MEDS: ATORVASTATIN CALCIUM 20 MG TABLET 80 MG PO (20:36)
[2025-05-20] MEDS: HYDROcodone/APAP 5/325 TABLET 1 TAB PO (23:05)
[2025-05-21] VITALS (22 sets, daily range): BP systolic 82–148; BP diastolic 43–69; PULSE 63–99; RESP 13–96; TEMP 36.1–37; O2SAT 95–100
[2025-05-21 06:19] LABS: Basophils # (Auto) 0.0 Thou/mm3 (0.0-0.2); Basophils % (Auto) 0 % (0-2.5); Eosinophils # (Auto) 0.1 Thou/mm3 (0.0-0.5); Eosinophils % (Auto) 1 % (0-10); Hematocrit 26.9 % (41.0-53.0); Hemoglobin 9.3 g/dL (13.5-16.0); Immature Granulocytes Auto 0.04 Thou/mm3 (0.00-0.00); Lymphocytes # (Auto) 1.0 Thou/mm3 (1.0-4.8); Lymphocytes % (Auto) 14 % (10-50); Mean Corpuscular HGB Conc 34.6 g/dl (31.0-37.0); Mean Corpuscular Hemoglobin 31.2 pg (25.0-35.0); Mean Corpuscular Volume 90 fL (80-100); Monocytes # (Auto) 0.6 Thou/mm3 (0.0-0.8); Monocytes % (Auto) 8 % (0-12); Neutrophils # (Auto) 5.3 Thou/mm3 (1.8-7.7); Neutrophils % (Auto) 76 % (37-80); Nucleated Red Blood Cell # 0.00 Thou/mm3 (0.00-0.00); Nucleated Red Blood Cell % 0 /100 WBC (0); Platelet Count 179 Thou/mm3 (140-440); RDW Standard Deviation 59.1 fL (35.1-43.9); Red Blood Count 2.98 Miln/mm3 (4.50-5.90); White Blood Count 6.9 Thou/mm3 (3.8-10.6)
[2025-05-21 06:34] LABS: Alanine Aminotransferase 25 U/L (10-49); Albumin, Serum 2.6 gm/dL (3.4-4.8); Albumin/Globulin Ratio 1.1 (1.2-2.2); Alkaline Phosphatase 105 U/L (46-116); Anion Gap 10 (7-16); Aspartate Amino Transferase 31 U/L (0-34); BUN/Creatinine Ratio 22 Ratio (12-20); Bilirubin,Total 0.5 mg/dL (0.3-1.2); Blood Urea Nitrogen 13 mg/dL (9-23); Calcium 7.7 mg/dL (8.3-10.6); Calcium (Corrected) 8.8 mg/dL (8.5-10.1); Carbon Dioxide 20.8 mMol/L (20.0-31.0); Chloride 103 mMol/L (98-107); Creatinine (Component) 0.6 mg/dL (0.6-1.3); Estimated Creatinine Clearance 76.9 mL/min (>60); Globulin 2.4 gm/dL (2.3-3.5); Glucose 158 mg/dL (74-106); Magnesium 1.3 mg/dL (1.6-2.6); Osmolality,Calculated 271 (275-295); Phosphorous 3.3 mg/dL (2.4-5.1); Potassium 4.0 mMol/L (3.4-5.1); Sodium 134 mMol/L (136-145); Total Protein 5.0 gm/dL (5.7-8.2); eGFR > 60 See Note
--- NOTE | 2025-05-21 09:48 | PD.SURCONS ---
HPI Consult details History of present illness: 79M with HTN, DMII, CAD s/p stenting 2023, hyponatremia and PAD, admitted for R hip fracture which was fixed yesterday additionally being treated for R great toe osteomyelitis. 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, I had seen him when he was hospitalized for hyponatremia but did not pursue amputation at that time due to the chronicity of the wound and because his Na remained quite low Review of Systems Review of Systems ROS Unobtainable: All systems reviewed & no additional complaints except as documented Meds Home Medications and Allergies Home Medications ?Medication ?Instructions ?Recorded ?Confirmed ?Type tamsulosin 0.4 mg capsule (Flomax) 0.4 mg PO BID ##0 07/15/16 05/19/25 History finasteride 5 mg tablet 5 mg PO QDAY 07/05/19 05/19/25 History docusate sodium 100 mg capsule 1 cap PO BID 03/04/22 05/19/25 History metformin 1,000 mg tablet 1 tab PO BID 03/04/22 05/19/25 History multivitamin 1 tab PO QAM 03/04/22 05/19/25 History atorvastatin 80 mg tablet 80 mg PO DAILY 09/01/24 05/19/25 History clopidogrel 75 mg tablet 75 mg PO DAILY 09/01/24 05/19/25 History metoprolol succinate 25 mg 37.5 mg PO DAILY 09/01/24 05/19/25 History tablet,extended release 24 hr empagliflozin 10 mg tablet 10 mg PO QDAY 05/19/25 05/19/25 History (Jardiance) Allergies Allergy/AdvReac Type Severity Reaction Status Date / Time naproxen Allergy Severe DIFFICULTY Verified 12/31/24 08:17 BREATHING Exam Vital Signs Temp Pulse Resp BP Pulse Ox O2 Del Method 97.2 F 80 18 119/59 L 100 Room Air 05/21/25 07:37 05/21/25 07:37 05/21/25 07:37 05/21/25 07:37 05/21/25 07:37 05/21/25 07:37 Constitutional Constitutional: no acute distress Routine Respiratory Exam Respiratory: Present no resp distress Routine Extremities Exam Comments: right toe with eschar covering the dorsal surface, mild redness at the base Results Results: Laboratory Laboratory results: results reviewed Assessment & Plan Plan 79M with HTN, DMII, CAD s/p stenting 2023, hyponatremia and PAD, admitted with R hip fracture which is now fixed additionally with chronic osteomyelitis. As his Na has improved I can offer right first toe amputation. I explained he may have an open wound there that will take weeks to heal. All questions were answered and pt agrees to proceed
--- NOTE | 2025-05-21 09:50 | ESPR_ITS ---
<Statement entered by Emil Barton MD - 05/22/25 14:46> Patient was examined and case was reviewed with team including attending physician. Note reviewed, I agree with most of its contents and agree with the patient's care. Emil Barton MD PGY-2 Documentation for date of: 05/21/25 Subjective Subjective Interval history: Patient seen at bedside this morning. He reports persistent right hip pain, but states it is better than yesterday and not worsening. He feels overall well and is answering questions appropriately. He asked if he could eat; reminded that he is NPO for surgery today. Discussed with patient that Dr. Quispe is planning possible right great toe amputation tomorrow (05/22/2025) due to worsening osteomyelitis. Patient verbalizes understanding and agrees with the plan. No chest pain, shortness of breath, dizziness, fevers, chills, nausea, or vomiting. No new complaints. Exam Vital Signs Temp Pulse Resp BP Pulse Ox O2 Del Method 97.2 F 80 18 119/59 L 100 Room Air 05/21/25 07:37 05/21/25 07:37 05/21/25 07:37 05/21/25 07:37 05/21/25 07:37 05/21/25 07:37 Narrative Exam GENERAL: Awake, answering questions appropriately, appears stated age, frail appearing HEENT: NC/AT. Moist mucosa. PERRLA/EOMI. CARDIO: Heart RRR, no obvious murmurs, no JVD. PULM: No coughing or visible SOB. Lungs CTA B/L. GI: Abdomen soft, NT/ND, +BS. SKIN/MSK/EXT: Atrophic bilateral lower extremities, right AC PICC line noted. Right toe bandaged secondary to osteomyelitis. Left hip/femur replaced. No discoloration/rashes/edema/amputations noted. +Pedal pulses present B/L. NEURO: Oriented x3, no focal neurologic deficits noted. Objective Labs 05/21/25 05:25 05/21/25 05:25 Labs: Laboratory Results - last 24 hr 05/19/25 05/20/25 05/21/25 13:46 16:36 05:25 WBC 6.9 RBC 2.98 L Hgb 8.7 L 9.3 L Hct 24.9 L 26.9 L MCV 90 MCH 31.2 MCHC 34.6 RDW Std Deviation 59.1 H Plt Count 179 D Neut % (Auto) 76 Lymph % (Auto) 14 [place] % (Auto) 8 Eos % (Auto) 1 Baso % (Auto) 0 Neut # (Auto) 5.3 Lymph # (Auto) 1.0 [place] # (Auto) 0.6 Eos # (Auto) 0.1 Baso # (Auto) 0.0 Immature Gran # (Auto) 0.04 H Absolute Nucleated RBC 0.00 Immature Gran % 1 H Nucleated RBC % 0 Sodium 134 L Potassium 4.0 Chloride 103 Carbon Dioxide 20.8 Anion Gap 10 BUN 13 Creatinine 0.6 Estim Creat Clear Calc 76.9 eGFR > 60 BUN/Creatinine Ratio 22 H Glucose 158 H Calculated Osmolality 271 L Calcium 7.7 L Corrected Calcium 8.8 Phosphorus 3.3 Magnesium 1.3 L Total Bilirubin 0.5 AST 31 ALT 25 Alkaline Phosphatase 105 Total Protein 5.0 L Albumin 2.6 L Globulin 2.4 Albumin/Globulin Ratio 1.1 L Crossmatch See Detail Quality Measures Quality Measures VTE prophylaxis Advance care planning discussed with:: patient Assessment & Plan Assessment Current Active Medications: Generic Name Dose Route Start Last Admin Trade Name Freq PRN Reason Stop Dose Admin Acetaminophen 650 mg 05/19/25 13:31 Acetaminophen 325 Mg Tablet PO 06/18/25 13:30 Q6H PRN Fever >100.4 pr pain 1-5 Hydrocodone Bitart/Acetaminophen 1 tab 05/20/25 16:40 05/20/25 23:05 Hydrocodone/Apap 5/325 Tablet PO 05/24/25 13:30 1 tab Q4HR PRN Administration PAIN SCALE 4-6 (Moderate Protocol Atorvastatin Calcium 80 mg 05/19/25 21:00 05/20/25 20:36 Atorvastatin Calcium 20 Mg Tablet PO 06/18/25 20:59 80 mg HS HUMBERTO Administration Dextrose 25 ml 05/19/25 15:25 Dextrose 50%-Water Inj 50 Ml Syringe IV 06/18/25 15:24 Q15MIN PRN BG 50-70 responsive npo pt Dextrose 50 ml 05/19/25 15:25 Dextrose 50%-Water Inj 50 Ml Syringe IV 06/18/25 15:24 Q15MIN PRN BG <50 OR BG <70 & pt unresponsive Doxycycline Hyclate 100 mg 05/19/25 21:00 05/20/25 20:37 Doxycycline 100 Mg Tablet PO 05/26/25 20:59 100 mg BID HUMBERTO Administration Finasteride 5 mg 05/19/25 13:45 05/20/25 12:21 Finasteride 5 Mg Tablet PO 06/18/25 13:44 5 mg QDAY HUMBERTO Administration Glucagon 1 mg 05/19/25 15:25 Glucagon Inj 1 Mg Vial IM Q15MIN PRN BG <70, and no IV access Ceftriaxone Sodium 2 gm/ 50 mls @ 100 mls/hr 05/19/25 15:44 05/20/25 14:27 Sodium Chloride IV 05/26/25 15:43 100 mls/hr QDAY@1400 HUMBERTO Administration Magnesium Sulfate 4 gm in 50 mls @ 12.5 mls/hr 05/21/25 08:12 Magnesium Sulfate Ivpb IV 05/21/25 12:11 X1 ONE Sodium Chloride 1,000 mls @ 80 mls/hr 05/21/25 08:20 Ns IV 05/21/25 20:49 .[id number] [facility] Insulin Human Lispro 0 unit 05/21/25 06:00 05/21/25 06:17 Insulin Lispro (Admelog) 1 Unit/0.01 Ml Unit SC 06/20/25 05:59 Not Given Q6HR [facility] Protocol Metoprolol Succinate 37.5 mg 05/20/25 09:00 05/20/25 08:07 Metoprolol Succinate Xl 25 Mg Tabcr PO 06/19/25 08:59 37.5 mg DAILY HUMBERTO Administration Morphine Sulfate 2 mg 05/20/25 16:39 Morphine Sulf Inj 4 Mg/Ml Vial IVP 05/25/25 16:38 Q4HR PRN pain 7-10 Ondansetron HCl 4 mg 05/19/25 13:31 Ondansetron Inj 2 Mg/Ml Inj 2 Ml IVP 06/18/25 13:30 Q6H PRN NAUSEA OR VOMITING Protocol Pantoprazole Sodium 40 mg 05/19/25 13:45 05/20/25 08:06 Pantoprazole Inj 40 Mg Vial IVP 06/18/25 13:44 40 mg QDAY HUMBERTO Administration Sodium Chloride 1 gm 05/19/25 22:00 05/21/25 05:05 Sodium Chloride 1 Gm Tablet PO 06/18/25 21:59 Not Given TID HUMBERTO Tamsulosin HCl 0.4 mg 05/19/25 13:45 05/20/25 12:22 Tamsulosin Hcl 0.4 Mg Capsule PO 06/18/25 13:44 0.4 mg QDAY HUMBERTO Administration Plan 79-year-old male with CAD, chronic hyponatremia, PAD, and worsening right toe osteomyelitis, admitted after mechanical fall with displaced intertrochanteric right femur fracture; scheduled for orthopedic repair today and possible toe amputation tomorrow, clinically stable with improved hip pain. #Displaced intertrochanteric fracture, right hip Acute fracture after mechanical fall. Severe pain, classic deformity. Imaging confirms displaced intertrochanteric fracture with subtrochanteric extension. Plan: * Continue pain management with IV morphine. * Surgery scheduled for 05/21/2025 (cephalomedullary nail). * Continue transfusion support (Hgb 7.8). * Cardiology clearance for surgery. (complete) * Monitor for signs of compartment syndrome or neurovascular compromise. * Post-op: PT/OT, hip precautions. #Right great toe chronic osteomyelitis (active infection) On IV ceftriaxone + doxycycline through 06/11 via PICC. Active infection with worsening condition. Plan: * Continue IV antibiotics (ceftriaxone + doxycycline) as scheduled. * Amputation scheduled for 05/22/2025, pending confirmation with General Surgery (Dr. Quispe). * Daily wound care. * Monitor for systemic infection (WBC, fever). #Preoperative cardiac risk assessment (CAD s/p stent 07/2023) [Cleared] High risk given age, CAD, anemia, PAD, current active infection. No chest pain or active cardiac symptoms today. Requires risk stratification for urgent hip repair. Plan: * Cardiology cleared patient * Baseline ECG, troponin * Continue home cardiac meds once reconciled (except hold anticoagulation if needed per ortho) * Avoid hypotension; maintain Hgb >8 #Acute blood loss anemia Hgb 7.3 on arrival. Likely combination of fracture-related blood loss + chronic anemia. Transfused 1 unit and receiving the second unit. 05/21: 2 units of PRBC transufed, Hgb this morning 9.3, no symptoms. Plan: * Continue to monitor. * CBC daily * Maintain Hgb >8 for surgery * Monitor post-op #Chronic hyponatremia/SIADH, Improving Na 131, stable near baseline. Recently discharged on salt tabs, fluid restriction. Na this morning 134 improving Plan: * Continue home salt tablets * Trend Na daily * Avoid aggressive fluids unless needed for hemodynamics * If worsening, consult nephrology (Dr. Marquez follows outpatient) #Type 2 diabetes mellitus Mild hyperglycemia on arrival (glucose 207). Glucose 158 this morning Plan: * Basal insulin per home regimen * SSI inpatient * Glucose checks qACHS * Hold metformin pre-op #Hypertension BP 125/76 Plan: * Resume home antihypertensives after med rec * Avoid hypotension pre-op, especially with anemia #Peripheral arterial disease Chronic; contributes to osteomyelitis risk. Plan: * Continue PAD management * Monitor distal perfusion post-surgery #BPH Plan: * Continue home tamsulosin/finasteride once reconciled * Monitor for urinary retention Hospital management: Diet: NPO fro surgery, will resume after DVT Prophylaxis: Hold heparin pre-op; use SCDs GI Prophylaxis: Not indicated Bowel regimen: PRN Code Status: Full Code Disposition: Admit to telemetry; surgery planned tomorrow. ----- Plan discussed with attending physician Dr. Farr and senior resident Dr. Hunter Bartholomew MD PGY-1 Internal Medicine Attending Provider Attestation/Addendum I have seen and examined the patient. I was physically present for the baires portions of the services provided including history, physical exam, diagnosis, treatment plans and orders. I agree with assessment and plan of care as documented by residents. Even though this this note was carefully revised there may still be minor errors in wheel [employer] due to voice recognition software. Shanti Farr MD
[2025-05-21] MEDS: Magnesium Sulfate 4 GM Ivpb 4 GM/50 ML BAG IV ×2 (09:52→19:51)
[2025-05-21] MEDS: SODIUM CHLORIDE 0.9% 1000 ML 1,000 ML 80 ML IV (09:53)
--- NOTE | 2025-05-21 11:01 | ESPR_ITS ---
Documentation for date of: 05/21/25 Subjective Subjective Interval history: Patient seen at bedside this morning. He reports persistent right hip pain, scheduled for surgery today with orthopedics. Patient denies any chest pain, shortness of breath, reports he is feeling okay. Telemetry reviewed, no significant events. Post Right hip cephalomedullary nail today patient will undergo possible amputation with general surgery for the great toe osteomyelitis. Exam Vital Signs Temp Pulse Resp BP Pulse Ox O2 Del Method 97.2 F 68 18 119/59 L 100 Room Air 05/21/25 07:37 05/21/25 09:22 05/21/25 09:22 05/21/25 07:37 05/21/25 07:37 05/21/25 07:37 Narrative Exam Physical Exam: GENERAL: Awake, answering questions appropriately, appears stated age, frail appearing HEENT: NC/AT. Moist mucosa. PERRLA/EOMI. CARDIO: Heart RRR, no obvious murmurs, no JVD. PULM: No coughing or visible SOB. Lungs CTA B/L. GI: Abdomen soft, NT/ND, +BS. SKIN/MSK/EXT: Atrophic bilateral lower extremities, right AC PICC line noted. Right toe bandaged secondary to osteomyelitis. Right leg is shorter internally rotated. No discoloration/rashes/edema/amputations noted. +Pedal pulses present B/L. NEURO: Oriented x3, no focal neurologic deficits noted. Objective Labs 05/21/25 05:25 05/21/25 05:25 Labs: Laboratory Results - last 24 hr 05/19/25 05/20/25 05/21/25 13:46 16:36 05:25 WBC 6.9 RBC 2.98 L Hgb 8.7 L 9.3 L Hct 24.9 L 26.9 L MCV 90 MCH 31.2 MCHC 34.6 RDW Std Deviation 59.1 H Plt Count 179 D Neut % (Auto) 76 Lymph % (Auto) 14 Ada % (Auto) 8 Eos % (Auto) 1 Baso % (Auto) 0 Neut # (Auto) 5.3 Lymph # (Auto) 1.0 Ada # (Auto) 0.6 Eos # (Auto) 0.1 Baso # (Auto) 0.0 Immature Gran # (Auto) 0.04 H Absolute Nucleated RBC 0.00 Immature Gran % 1 H Nucleated RBC % 0 Sodium 134 L Potassium 4.0 Chloride 103 Carbon Dioxide 20.8 Anion Gap 10 BUN 13 Creatinine 0.6 Estim Creat Clear Calc 76.9 eGFR > 60 BUN/Creatinine Ratio 22 H Glucose 158 H Calculated Osmolality 271 L Calcium 7.7 L Corrected Calcium 8.8 Phosphorus 3.3 Magnesium 1.3 L Total Bilirubin 0.5 AST 31 ALT 25 Alkaline Phosphatase 105 Total Protein 5.0 L Albumin 2.6 L Globulin 2.4 Albumin/Globulin Ratio 1.1 L Crossmatch See Detail Quality Measures Quality Measures VTE prophylaxis Advance care planning discussed with:: patient Assessment & Plan Assessment Current Active Medications: Generic Name Dose Route Start Last Admin Trade Name Freq PRN Reason Stop Dose Admin Acetaminophen 650 mg 05/19/25 13:31 Acetaminophen 325 Mg Tablet PO 06/18/25 13:30 Q6H PRN Fever >100.4 pr pain 1-5 Hydrocodone Bitart/Acetaminophen 1 tab 05/20/25 16:40 05/20/25 23:05 Hydrocodone/Apap 5/325 Tablet PO 05/24/25 13:30 1 tab Q4HR PRN Administration PAIN SCALE 4-6 (Moderate Protocol Atorvastatin Calcium 80 mg 05/19/25 21:00 05/20/25 20:36 Atorvastatin Calcium 20 Mg Tablet PO 06/18/25 20:59 80 mg HS HUMBERTO Administration Dextrose 25 ml 05/19/25 15:25 Dextrose 50%-Water Inj 50 Ml Syringe IV 06/18/25 15:24 Q15MIN PRN BG 50-70 responsive npo pt Dextrose 50 ml 05/19/25 15:25 Dextrose 50%-Water Inj 50 Ml Syringe IV 06/18/25 15:24 Q15MIN PRN BG <50 OR BG <70 & pt unresponsive Doxycycline Hyclate 100 mg 05/19/25 21:00 05/21/25 09:55 Doxycycline 100 Mg Tablet PO 05/26/25 20:59 Not Given BID HUMBERTO Finasteride 5 mg 05/19/25 13:45 05/21/25 09:55 Finasteride 5 Mg Tablet PO 06/18/25 13:44 Not Given QDAY HUMBERTO Glucagon 1 mg 05/19/25 15:25 Glucagon Inj 1 Mg Vial IM Q15MIN PRN BG <70, and no IV access Ceftriaxone Sodium 2 gm/ 50 mls @ 100 mls/hr 05/19/25 15:44 05/20/25 14:27 Sodium Chloride IV 05/26/25 15:43 100 mls/hr QDAY@1400 HUMBERTO Administration Magnesium Sulfate 4 gm in 50 mls @ 12.5 mls/hr 05/21/25 08:12 05/21/25 09:52 Magnesium Sulfate Ivpb IV 05/21/25 12:11 12.5 mls/hr X1 ONE Administration Sodium Chloride 1,000 mls @ 80 mls/hr 05/21/25 08:20 05/21/25 09:53 Ns IV 05/21/25 20:49 80 mls/hr .[id number] HUMBERTO Administration Insulin Human Lispro 0 unit 05/21/25 06:00 05/21/25 06:17 Insulin Lispro (Admelog) 1 Unit/0.01 Ml Unit SC 06/20/25 05:59 Not Given Q6HR HUMBERTO Protocol Metoprolol Succinate 37.5 mg 05/20/25 09:00 05/21/25 09:55 Metoprolol Succinate Xl 25 Mg Tabcr PO 06/19/25 08:59 Not Given DAILY HUMBERTO Morphine Sulfate 2 mg 05/20/25 16:39 Morphine Sulf Inj 4 Mg/Ml Vial IVP 05/25/25 16:38 Q4HR PRN pain 7-10 Ondansetron HCl 4 mg 05/19/25 13:31 Ondansetron Inj 2 Mg/Ml Inj 2 Ml IVP 06/18/25 13:30 Q6H PRN NAUSEA OR VOMITING Protocol Pantoprazole Sodium 40 mg 05/19/25 13:45 05/21/25 09:55 Pantoprazole Inj 40 Mg Vial IVP 06/18/25 13:44 40 mg QDAY HUMBERTO Administration Sodium Chloride 1 gm 05/19/25 22:00 05/21/25 05:05 Sodium Chloride 1 Gm Tablet PO 06/18/25 21:59 Not Given TID HUMBERTO Tamsulosin HCl 0.4 mg 05/19/25 13:45 05/21/25 09:55 Tamsulosin Hcl 0.4 Mg Capsule PO 06/18/25 13:44 Not Given QDAY HUMBERTO Plan Assessment and plan: Summary: Mr. Scott is a 79-year-old male with past medical history of hypertension, hyperlipidemia, type 2 diabetes mellitus, CAD status post coronary stent July 2023, peripheral arterial disease, BPH, SIADH, chronic hyponatremia, history of GI bleed (internal hemorrhoids) and osteomyelitis hallux of right distal hallux who presented to [facility] emergency department on 05/19/2025 with a chief complaint of mechanical ground- level fall, patient was found to have displaced intertrochanteric right hip fracture. Cardiology consulted for pre-op clearance. #Pre-op cardiac risk assessment #CAD status post PCI July 2023 Presented with ground-level mechanical fall, found to have displaced intertrochanteric right hip fracture in the ER confirmed on imaging. Orthopedics consulted, plan to undergo surgery in AM. Patient denies any chest pain/pressure, palpitations, dizziness, shortness of breath, leg swelling, presyncope and syncopal symptoms. Cardiology consulted for preop clearance clearance considering history of CAD. Cardiac catheterization report from July 2023: Patient underwent successful PCI right coronary artery posterior descending branch, 95% preprocedure stenosis was noted in the vessel. Additional stent was placed in PL branch of RCA. Cardiac cath findings August 2024: Widely patent stent involving the right coronary artery PDA, PL branches. Moderate disease of distal left anterior descending artery to be managed medically. Calcification of LAD, left main and circumflex arteries. No significant obstructive disease. Normal left ventricular function. Patient has been compliant on medication regimen currently on Plavix 75 mg and atorvastatin 80 mg along with metoprolol succinate 37.5 mg daily. 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 Dalila Mcdaniel and follows him outpatient. TSH 04/29/2025 1.48, lipid panel 05/01/2025 triglyceride 58, cholesterol 64, LDL 17, HDL 35, cholesterol/HDL ratio 1.8, A1c 04/29/2025 6.7 Patient's previous echo from August 2024 normal LV function LVEF 60%, technically difficult study. EKG obtained today shows sinus rhythm, frequent PVCs, some T wave inversion noted on V1?V3 Revised cardiac risk index score?2 points HEART score for Major Cardiac events?6 points, risk of mace 12-16% METS less than 4 Echocardiogram obtained 05/19/2025 shows 1. Left ventricle size is normal and systolic function is normal. Estimated ejection fraction is 55-60%. There is indeterminate diastolic function. 2. Right ventricle chamber size is normal and systolic function is normal. Estimated RVSP is 18 mmHg. 3. There is trace mitral valve regurgitation. 4. There is trace tricuspid valve regurgitation. 5. Not well visualized IVC with estimated RA pressure 8 mmHg. Recommendations: ? Agree with holding Plavix prior to surgery as patient's stents were placed more than 1 year ago. ? Based on patient's cardiac risk, patient is at acceptable but mildly elevated cardiac risk for surgery. No further cardiac workup needed as patient recently had angiogram earlier this year along with echo now. ? Patient is scheduled for right hip cephalomedullary nail placement today with orthopedics, possible right great toe amputation with general surgeon in a.m. ? Keep potassium greater than 4 and magnesium greater than 2 at all times. ? Recommend transfusing pRBC prn, keep hemoglobin greater than 8 #Hypertension #Hyperlipidemia #Peripheral arterial disease Patient on metoprolol 37.5 mg daily, atorvastatin 80 mg at bedtime. ?Continue atorvastatin and metoprolol home dose #Type 2 diabetes mellitus #BPH #SIADH #Chronic hyponatremia #History of GI bleed #Osteomyelitis hallux of right distal hallux #Constipation #Hypomagnesemia Management as per primary team. Thank you for the consult and allowing to participate in the care of the patient. Cardiology will continue to follow. Case discussed with Attending Physician Dr. Nathan Daniel MD Internal Medicine PGY-2 Disclaimer: This note was dictated by speech recognition. Minor errors in volcanology professor may be present due to voice recognition software. Attending Provider Attestation/Addendum I have personally seen and examined the patient separately on the above date of service and discussed the plan of care with the resident. I reviewed the resident Dr. Adina Daniel consultation progress note and agree with the resident findings and plan in the note above and have also edited the documentation to reflect my findings and plan. Nathan Larios M.D. Interventional Cardiology
--- NOTE | 2025-05-21 13:00 | XR_ITS ---
EXAMINATION: AP femur single view TECHNIQUE: AP femur single view Date and time: May 21, 2025, 1718 hours INDICATIONS: Acute severely angulated intertrochanteric fracture right hip postop reduction internal fixation FINDINGS: The caudal end of the intramedullary nupur is in satisfactory position IMPRESSION: The caudal end of the intramedullary femoral nupur is in satisfactory position
--- NOTE | 2025-05-21 14:42 | PC.SS ---
Rounding: Pending hip fx sx and will have genseral sx for osteo tomorrow, DC plan to be revisited. Pt aligned with SEVA, snf and option if pt agreeable
--- NOTE | 2025-05-21 15:49 | PD.SUROPNT ---
Date of Procedure 05/21/25 Pre Op Diagnosis right hip intertrochanteric fracture Post Op Diagnosis right hip intertrochanteric fracture Procedure right hip cephalomedullary nail Findings fracture interotrochanteric Procedure Description Indications Patient is a pleasant 79 yo female with a right intertrochanteric fracture. We discussed operative treatment with a cephalomedullary nail given the intertrochanteric fracture. We discussed nonoperative and operative options. He and his family understands the risk of surgery, including infection, nonunion, malunion, hardware failure, and medical complications including , and would like to proceed with surgery Procedure in detail The patient was brought to the [place] table and was prepped and draped in the usual sterile fashion. We first obtained prereduction fluoroscopy films. We reduced it with traction and gentle internal rotation. Once an adequate reduction was performed, the patient was prepped and draped in usual sterile fashion. A surgical timeout was then performed. A trochanteric starting point was found and an entry wire was inserted followed by an opening reamer. A ball tipped guidewire was then placed and we ensured it was in the canal. We then measured and sequentially reamed. We then inserted a [id number] long gamma nail into the femur and ensured that it was reduced. We then inserted a wire into the 130 degree holding the jig and try to ensure that was center center on both the AP and lateral films. We then used a drill and tapped the femoral head followed by insertion of a screw. We ensured on both AP and lateral fluoroscopy views that we were in good position. We then removed the jig and obtained a perfect [place] of the distal femur. We then placed a distal interlock in the distal static hole. The patient was closed in the usual sterile fashion with Vicryl and Monocryl. Patient is to be weightbearing as tolerated Plan: WBAT Resume dvt ppx PT/OT Anesthesia GETA Implants Implants comments: [place] Pathology / specimen None Pathology comment: none Estimated Blood Loss 75 Condition Stable Disposition floor Surgeon Gavino Mailk MD Surgical Staff Operation Date: 05/21/25 14:15 Case Staff PUTTY TINTER MAKER: Amada Adams RN First Assistant: Chika Feliciano RNasp net mvc developer: Maday Malik
--- NOTE | 2025-05-21 15:55 | XR_ITS ---
EXAMINATION: Right femur 2 views TECHNIQUE: AP lateral right femur 2 views Date and time: May 21, 2025, 1743 hours INDICATIONS: Acute intertrochanteric fracture right hip May 2025, operative reduction internal fixation hip fracture today. FINDINGS: Operative reduction internal fixation right hip fracture, satisfactory alignment Long intramedullary nupur satisfactory position relative to the femoral shaft IMPRESSION: Operative reduction internal fixation right hip fracture with satisfactory alignment Orthopedic hardware satisfactory position
--- NOTE | 2025-05-21 15:55 | XR_ITS ---
Examination: Right hip AP, lateral, AP pelvis 3 views Technique: Hip AP lateral, AP pelvis, 3 views Exam date and time: May 21, 2025, 1737 hours INDICATIONS: Postop reduction internal fixation acute intertrochanteric fracture right hip noted on May 19, 2025 FINDINGS: Postop reduction internal fixation right hip fracture, satisfactory alignment Orthopedic hardware satisfactory position IMPRESSION: Postop reduction internal fixation right hip fracture with satisfactory alignment.
--- NOTE | 2025-05-21 16:33 | SUR.PHASEI ---
1633 Amada CLUB MANAGER at bedside verbal order read-back received from Dilaudid 0.25mg IVP Q10min PRN for pain scale 7-10, Fentanyl 50mcg IVP Q10min PRN for pain scale 4-6, will enter order in EMR and administer per anesthesia order
[2025-05-21] MEDS: HYDROmorphone INJ 2 MG/ML VIAL 0.25 MG IVP (16:43)
[2025-05-21] MEDS: fentaNYL CIT INJ 50 mCg/ML AMP 2ML IVP (16:58)
[2025-05-21] MEDS: HYDROcodone/APAP 5/325 TABLET 1 TAB PO (17:18)
--- NOTE | 2025-05-21 18:01 | SUR.PHASEI ---
1800 patient transported via bed to room 364 without incident, Bryce CABRERA promptly in patient room, patient had call light in reach and resting comfortably in bed when this information writer left patients room
[2025-05-21 20:20] LABS: Hematocrit 20.9 % (41.0-53.0)
[2025-05-21 20:25] LABS: Hemoglobin 7.0 g/dL (13.5-16.0)
[2025-05-21] MEDS: DOCUSATE SOD 100 MG CAPSULE PO (20:39)
[2025-05-21] MEDS: DOXYCYCLINE 100 MG TABLET PO (20:39)
[2025-05-21] MEDS: ATORVASTATIN CALCIUM 20 MG TABLET 80 MG PO (20:39)
--- NOTE | 2025-05-21 21:08 | PC.NURSE ---
MD Gaspar made aware of BP 95/43 and a repeat of 88/58, pt hgb at this time is 7.0. MD will check on pts chart and put order in.
[2025-05-21] MEDS: SODIUM CHLORIDE 1 GM TABLET PO (21:10)
[2025-05-21] MEDS: MIDODRINE 5 MG TABLET PO (21:10)
[2025-05-21 21:38] LABS: Hematocrit 21.7 % (41.0-53.0)
[2025-05-21 21:39] LABS: Hemoglobin 7.2 g/dL (13.5-16.0)
--- NOTE | 2025-05-21 22:25 | PC.NURSE ---
MD Orosco made aware of BP 82/53 MAP of 62, rpt hgb 7.2. Md ordered 1L of LR bolus. MD will check on pts chart.
[2025-05-21] MEDS: RINGERS LACTATED 500 ML 500 ML 999 ML IV (22:35)
[2025-05-22] VITALS (19 sets, daily range): BP systolic 97–152; BP diastolic 46–86; PULSE 73–100; RESP 16–99; TEMP 36.1–36.8; O2SAT 95–100; BMI 12.0
[2025-05-22 07:35] LABS: Basophils # (Auto) 0.0 Thou/mm3 (0.0-0.2); Basophils % (Auto) 0 % (0-2.5); Eosinophils # (Auto) 0.0 Thou/mm3 (0.0-0.5); Eosinophils % (Auto) 1 % (0-10); Hematocrit 26.0 % (41.0-53.0); Hemoglobin 8.9 g/dL (13.5-16.0); Immature Granulocytes Auto 0.03 Thou/mm3 (0.00-0.00); Lymphocytes # (Auto) 0.5 Thou/mm3 (1.0-4.8); Lymphocytes % (Auto) 9 % (10-50); Mean Corpuscular HGB Conc 34.2 g/dl (31.0-37.0); Mean Corpuscular Hemoglobin 30.2 pg (25.0-35.0); Mean Corpuscular Volume 88 fL (80-100); Monocytes # (Auto) 0.4 Thou/mm3 (0.0-0.8); Monocytes % (Auto) 7 % (0-12); Neutrophils # (Auto) 4.7 Thou/mm3 (1.8-7.7); Neutrophils % (Auto) 82 % (37-80); Nucleated Red Blood Cell # 0.00 Thou/mm3 (0.00-0.00); Nucleated Red Blood Cell % 0 /100 WBC (0); Platelet Count 165 Thou/mm3 (140-440); RDW Standard Deviation 52.2 fL (35.1-43.9); Red Blood Count 2.95 Miln/mm3 (4.50-5.90); White Blood Count 5.7 Thou/mm3 (3.8-10.6)
[2025-05-22 08:04] LABS: Alanine Aminotransferase 18 U/L (10-49); Albumin, Serum 2.4 gm/dL (3.4-4.8); Albumin/Globulin Ratio 1.1 (1.2-2.2); Alkaline Phosphatase 62 U/L (46-116); Anion Gap 9 (7-16); Aspartate Amino Transferase 17 U/L (0-34); BUN/Creatinine Ratio 27 Ratio (12-20); Bilirubin,Total 1.2 mg/dL (0.3-1.2); Blood Urea Nitrogen 16 mg/dL (9-23); Calcium 7.2 mg/dL (8.3-10.6); Calcium (Corrected) 8.5 mg/dL (8.5-10.1); Carbon Dioxide 23.4 mMol/L (20.0-31.0); Chloride 104 mMol/L (98-107); Creatinine (Component) 0.6 mg/dL (0.6-1.3); Estimated Creatinine Clearance 76.9 mL/min (>60); Globulin 2.2 gm/dL (2.3-3.5); Glucose 164 mg/dL (74-106); Magnesium 2.0 mg/dL (1.6-2.6); Osmolality,Calculated 277 (275-295); Phosphorous 4.7 mg/dL (2.4-5.1); Potassium 4.2 mMol/L (3.4-5.1); Sodium 136 mMol/L (136-145); Total Protein 4.6 gm/dL (5.7-8.2); eGFR > 60 See Note
--- NOTE | 2025-05-22 10:42 | ESPR_ITS ---
<Statement entered by Emil Barton MD - 05/24/25 06:00> Patient was examined and case was reviewed with team including attending physician. Note reviewed, I agree with most of its contents and agree with the patient's care. Emil Barton MD PGY-2 Documentation for date of: 05/22/25 Subjective Subjective Interval history: Patient seen at bedside this morning. He reports hip pain but states it is controlled and not worsening. No new complaints. He feels overall well and is answering questions appropriately. He understands he is NPO today for possible right hallux amputation, pending Dr. Quispe?s surgical schedule. No chest pain, shortness of breath, palpitations, dizziness, fever, chills, nausea, or vomiting. No postoperative confusion or delirium. He tolerated yesterday?s orthopedic surgery (cephalomedullary nail) without complications. He received a 4th unit of PRBC overnight for hemoglobin of 7.0; this morning?s hemoglobin improved to 8.9. Exam Vital Signs Temp Pulse Resp BP Pulse Ox O2 Del Method O2 Flow Rate 97.0 F 89 17 112/60 97 Room Air 5 05/22/25 08:00 05/22/25 09:28 05/22/25 08:00 05/22/25 09:28 05/22/25 08:00 05/22/25 08:00 05/21/25 16:15 Narrative Exam General: Alert, cooperative, no acute distress. Cardiac: Regular rate and rhythm, no murmurs. Respiratory: Clear breath sounds bilaterally, non-labored breathing. Abdomen: Soft, non-tender, non-distended. Extremities: Right hip surgical site: Dressing clean/dry/intact. No new swelling, erythema, or drainage. Good alignment per postop imaging. Right foot: Necrotic hallux with chronic osteomyelitis. Dressing intact. No foul odor. Awaiting surgical decision. Neuro: A&O ?3, no focal deficits. Motor exam limited in RLE due to postop pain but intact distally. Sensation intact. Skin: Warm and dry; no new skin issues. Objective Labs 05/22/25 16:03 05/22/25 07:20 Labs: Laboratory Results - last 24 hr 05/19/25 05/21/25 05/21/25 13:46 20:01 21:15 WBC RBC Hgb 7.0 L D 7.2 L Hct 20.9 L* 21.7 L* MCV MCH MCHC RDW Std Deviation Plt Count Neut % (Auto) Lymph % (Auto) [place] % (Auto) Eos % (Auto) Baso % (Auto) Neut # (Auto) Lymph # (Auto) [place] # (Auto) Eos # (Auto) Baso # (Auto) Immature Gran # (Auto) Absolute Nucleated RBC Immature Gran % Nucleated RBC % Sodium Potassium Chloride Carbon Dioxide Anion Gap BUN Creatinine Estim Creat Clear Calc eGFR BUN/Creatinine Ratio Glucose Calculated Osmolality Calcium Corrected Calcium Phosphorus Magnesium Total Bilirubin AST ALT Alkaline Phosphatase Total Protein Albumin Globulin Albumin/Globulin Ratio Blood Type O Positive Antibody Screen NEGATIVE Crossmatch See Detail Blood Bank Wristband ID Yes 05/22/25 07:20 WBC 5.7 RBC 2.95 L Hgb 8.9 L D Hct 26.0 L MCV 88 MCH 30.2 MCHC 34.2 RDW Std Deviation 52.2 H Plt Count 165 Neut % (Auto) 82 H Lymph % (Auto) 9 L [place] % (Auto) 7 Eos % (Auto) 1 Baso % (Auto) 0 Neut # (Auto) 4.7 Lymph # (Auto) 0.5 L [place] # (Auto) 0.4 Eos # (Auto) 0.0 Baso # (Auto) 0.0 Immature Gran # (Auto) 0.03 H Absolute Nucleated RBC 0.00 Immature Gran % 1 H Nucleated RBC % 0 Sodium 136 Potassium 4.2 Chloride 104 Carbon Dioxide 23.4 Anion Gap 9 BUN 16 Creatinine 0.6 Estim Creat Clear Calc 76.9 eGFR > 60 BUN/Creatinine Ratio 27 H Glucose 164 H Calculated Osmolality 277 Calcium 7.2 L Corrected Calcium 8.5 Phosphorus 4.7 Magnesium 2.0 Total Bilirubin 1.2 D AST 17 ALT 18 Alkaline Phosphatase 62 D Total Protein 4.6 L Albumin 2.4 L Globulin 2.2 L Albumin/Globulin Ratio 1.1 L Blood Type Antibody Screen Crossmatch Blood Bank Wristband ID Quality Measures Quality Measures VTE prophylaxis Advance care planning discussed with:: patient Assessment & Plan Assessment Current Active Medications: Generic Name Dose Route Start Last Admin Trade Name Freq PRN Reason Stop Dose Admin Acetaminophen 650 mg 05/19/25 13:31 Acetaminophen 325 Mg Tablet PO 06/18/25 13:30 Q6H PRN Fever >100.4 pr pain 1-5 Hydrocodone Bitart/Acetaminophen 1 tab 05/20/25 16:40 05/21/25 17:18 Hydrocodone/Apap 5/325 Tablet PO 05/24/25 13:30 1 tab Q4HR PRN Administration PAIN SCALE 4-6 (Moderate Protocol Atorvastatin Calcium 80 mg 05/19/25 21:00 05/21/25 20:39 Atorvastatin Calcium 20 Mg Tablet PO 06/18/25 20:59 80 mg HS HUMBERTO Administration Clopidogrel Bisulfate 75 mg 05/22/25 09:00 Clopidogrel Bisulfate 75 Mg Tablet PO 06/21/25 08:59 On Hold: 05/22/25 09:00 DAILY HUMBERTO Dextrose 25 ml 05/19/25 15:25 Dextrose 50%-Water Inj 50 Ml Syringe IV 06/18/25 15:24 Q15MIN PRN BG 50-70 responsive npo pt Dextrose 50 ml 05/19/25 15:25 Dextrose 50%-Water Inj 50 Ml Syringe IV 06/18/25 15:24 Q15MIN PRN BG <50 OR BG <70 & pt unresponsive Docusate Sodium 100 mg 05/21/25 21:00 05/22/25 09:28 Docusate Sod 100 Mg Capsule PO 06/20/25 20:59 Not Given BID [facility] Protocol Doxycycline Hyclate 100 mg 05/19/25 21:00 05/22/25 09:28 Doxycycline 100 Mg Tablet PO 05/26/25 20:59 Not Given BID HUMBERTO Finasteride 5 mg 05/19/25 13:45 05/22/25 09:28 Finasteride 5 Mg Tablet PO 06/18/25 13:44 Not Given QDAY [facility] Glucagon 1 mg 05/19/25 15:25 Glucagon Inj 1 Mg Vial IM Q15MIN PRN BG <70, and no IV access Ceftriaxone Sodium/Dextrose 2 gm in 50 mls @ 100 mls/hr 05/22/25 14:00 Rocephin/D5w 2gm IV 05/29/25 13:59 QDAY@1400 [facility] Insulin Human Lispro 0 unit 05/21/25 06:00 05/22/25 05:25 Insulin Lispro (Admelog) 1 Unit/0.01 Ml Unit SC 06/20/25 05:59 Not Given Q6HR [facility] Protocol Metoprolol Succinate 37.5 mg 05/20/25 09:00 05/22/25 09:28 Metoprolol Succinate Xl 25 Mg Tabcr PO 06/19/25 08:59 Not Given DAILY HUMBERTO Morphine Sulfate 2 mg 05/20/25 16:39 Morphine Sulf Inj 4 Mg/Ml Vial IVP 05/25/25 16:38 Q4HR PRN pain 7-10 Multivitamins 1 tab 05/22/25 09:00 05/22/25 09:28 Multivitamins Tablet PO 06/21/25 08:59 Not Given QAM [facility] Ondansetron HCl 4 mg 05/19/25 13:31 Ondansetron Inj 2 Mg/Ml Inj 2 Ml IVP 06/18/25 13:30 Q6H PRN NAUSEA OR VOMITING Protocol Pantoprazole Sodium 40 mg 05/19/25 13:45 05/22/25 09:28 Pantoprazole Inj 40 Mg Vial IVP 06/18/25 13:44 Not Given QDAY [facility] Sodium Chloride 1 gm 05/19/25 22:00 05/22/25 05:20 Sodium Chloride 1 Gm Tablet PO 06/18/25 21:59 Not Given TID HUMBERTO Tamsulosin HCl 0.4 mg 05/19/25 13:45 05/22/25 09:29 Tamsulosin Hcl 0.4 Mg Capsule PO 06/18/25 13:44 Not Given QDAY HUMBERTO Plan 79-year-old male with CAD, chronic hyponatremia, PAD, and refractory right hallux osteomyelitis now s/p right first toe amputation today and POD#1 from right hip cephalomedullary nail, recovering well with stable post-transfusion hemoglobin and no new complaints. # POD#1, Right intertrochanteric femur fracture s/p cephalomedullary nail (05/21/25) Doing well postoperatively; pain well controlled. Alignment confirmed on imaging. Plan: * Continue postop care per orthopedics * Weightbearing as tolerated per op note * Continue pain control regimen * Monitor wound/dressing daily * Begin PT/OT when cleared * Trend CBC tomorrow # POD#0, Right first toe amputation for refractory osteomyelitis Successful amputation performed today. No intraoperative complications. Plan: * Continue IV ceftriaxone + doxycycline for 24 hours stop 05/23, held already. * Maintain clean, dry dressing; do not remove unless directed by surgery. * Daily wound checks starting tomorrow. * Pain control PRN. * Weightbearing per general surgery. * Monitor for signs of infection: fever, erythema, purulent drainage. #Preoperative cardiac risk assessment (CAD s/p stent 07/2023) [Cleared] High risk given age, CAD, anemia, PAD, current active infection. No chest pain or active cardiac symptoms today. Requires risk stratification for urgent hip repair. Plan: * Cardiology cleared patient * Baseline ECG, troponin * Continue home cardiac meds once reconciled (except hold anticoagulation if needed per ortho) * Avoid hypotension; maintain Hgb >8 #Acute blood loss anemia Hgb 7.3 on arrival. Likely combination of fracture-related blood loss + chronic anemia. Transfused 1 unit and receiving the second unit. 05/21: 2 units of PRBC transufed, Hgb this morning 9.3, no symptoms. 05/22: Hgb dropped overnight after one unit prbc improved to 8.9. Plan: * Continue to monitor. * CBC daily * Maintain Hgb >8 for surgery * Monitor post-op #Chronic hyponatremia/SIADH, resolved Na 131, stable near baseline. Recently discharged on salt tabs, fluid restriction. Na this morning 136 improving Plan: * Continue home salt tablets * Trend Na daily * Avoid aggressive fluids unless needed for hemodynamics * If worsening, consult nephrology (Dr. Marquez follows outpatient) #Type 2 diabetes mellitus Mild hyperglycemia on arrival (glucose 207). Glucose 164 this morning Plan: * Basal insulin per home regimen * SSI inpatient * Glucose checks qACHS * Hold metformin pre-op #Hypertension BP 128/71 Plan: * Resume home antihypertensives after med rec * Avoid hypotension pre-op, especially with anemia #Peripheral arterial disease Chronic; contributes to osteomyelitis risk. Plan: * Continue PAD management * Monitor distal perfusion post-surgery #BPH Plan: * Continue home tamsulosin/finasteride once reconciled * Monitor for urinary retention Hospital management: Diet: Dysphagia DVT Prophylaxis: Hold heparin pre-op; use SCDs GI Prophylaxis: Not indicated Bowel regimen: PRN Code Status: Full Code Disposition: Admit to telemetry; surgery planned tomorrow. ----- Plan discussed with attending physician Dr. Farr and senior resident Dr. Hunter Bartholomew MD PGY-1 Internal Medicine Attending Provider Attestation/Addendum I have seen and examined the patient. I was physically present for the baires portions of the services provided including history, physical exam, diagnosis, treatment plans and orders. I agree with assessment and plan of care as documented by residents. Even though this this note was carefully revised there may still be minor errors in boulevard glassware replacer due to voice recognition software. Shanti Farr MD
[2025-05-22] MEDS: DEXTROSE 5%-NS 1,000 ML 125 ML IV (11:13)
--- NOTE | 2025-05-22 12:33 | PD.RESPRO ---
Documentation for date of: 05/22/25 Subjective Subjective Interval history: Patient seen at bedside this morning. Patient is scheduled for toe amputation today with general surgery. Patient is wondering what time his surgery is today. Patient did have right hip cephalomedullary nail placed yesterday by orthopedic surgery, no complications surgery went well. Patient denies any chest pain, shortness of breath, reports he is feeling okay. Telemetry reviewed, no significant events. Labs and vitals reviewed, hemoglobin 8.9. Exam Vital Signs Temp Pulse Resp BP Pulse Ox O2 Del Method O2 Flow Rate 97.0 F 89 17 112/60 97 Room Air 5 05/22/25 08:00 05/22/25 09:28 05/22/25 08:00 05/22/25 09:28 05/22/25 08:00 05/22/25 08:00 05/21/25 16:15 Narrative Exam Physical Exam: GENERAL: Awake, answering questions appropriately, appears stated age, frail appearing HEENT: NC/AT. Moist mucosa. PERRLA/EOMI. CARDIO: Heart RRR, no obvious murmurs, no JVD. PULM: No coughing or visible SOB. Lungs CTA B/L. GI: Abdomen soft, NT/ND, +BS. SKIN/MSK/EXT: Atrophic bilateral lower extremities, right AC PICC line noted. Right toe bandaged secondary to osteomyelitis. No discoloration/rashes/edema/amputations noted. +Pedal pulses present B/L. NEURO: Oriented x3, no focal neurologic deficits noted. Objective Labs 05/22/25 16:03 05/22/25 07:20 Labs: Laboratory Results - last 24 hr 05/19/25 05/21/25 05/21/25 13:46 20:01 21:15 WBC RBC Hgb 7.0 L D 7.2 L Hct 20.9 L* 21.7 L* MCV MCH MCHC RDW Std Deviation Plt Count Neut % (Auto) Lymph % (Auto) [place] % (Auto) Eos % (Auto) Baso % (Auto) Neut # (Auto) Lymph # (Auto) [place] # (Auto) Eos # (Auto) Baso # (Auto) Immature Gran # (Auto) Absolute Nucleated RBC Immature Gran % Nucleated RBC % Sodium Potassium Chloride Carbon Dioxide Anion Gap BUN Creatinine Estim Creat Clear Calc eGFR BUN/Creatinine Ratio Glucose Calculated Osmolality Calcium Corrected Calcium Phosphorus Magnesium Total Bilirubin AST ALT Alkaline Phosphatase Total Protein Albumin Globulin Albumin/Globulin Ratio Blood Type O Positive Antibody Screen NEGATIVE Crossmatch See Detail Blood Bank Wristband ID Yes 05/22/25 07:20 WBC 5.7 RBC 2.95 L Hgb 8.9 L D Hct 26.0 L MCV 88 MCH 30.2 MCHC 34.2 RDW Std Deviation 52.2 H Plt Count 165 Neut % (Auto) 82 H Lymph % (Auto) 9 L [place] % (Auto) 7 Eos % (Auto) 1 Baso % (Auto) 0 Neut # (Auto) 4.7 Lymph # (Auto) 0.5 L [place] # (Auto) 0.4 Eos # (Auto) 0.0 Baso # (Auto) 0.0 Immature Gran # (Auto) 0.03 H Absolute Nucleated RBC 0.00 Immature Gran % 1 H Nucleated RBC % 0 Sodium 136 Potassium 4.2 Chloride 104 Carbon Dioxide 23.4 Anion Gap 9 BUN 16 Creatinine 0.6 Estim Creat Clear Calc 76.9 eGFR > 60 BUN/Creatinine Ratio 27 H Glucose 164 H Calculated Osmolality 277 Calcium 7.2 L Corrected Calcium 8.5 Phosphorus 4.7 Magnesium 2.0 Total Bilirubin 1.2 D AST 17 ALT 18 Alkaline Phosphatase 62 D Total Protein 4.6 L Albumin 2.4 L Globulin 2.2 L Albumin/Globulin Ratio 1.1 L Blood Type Antibody Screen Crossmatch Blood Bank Wristband ID Quality Measures Quality Measures VTE prophylaxis Advance care planning discussed with:: patient Assessment & Plan Assessment Current Active Medications: Generic Name Dose Route Start Last Admin Trade Name Freq PRN Reason Stop Dose Admin Acetaminophen 650 mg 05/19/25 13:31 Acetaminophen 325 Mg Tablet PO 06/18/25 13:30 Q6H PRN Fever >100.4 pr pain 1-5 Hydrocodone Bitart/Acetaminophen 1 tab 05/20/25 16:40 05/21/25 17:18 Hydrocodone/Apap 5/325 Tablet PO 05/24/25 13:30 1 tab Q4HR PRN Administration PAIN SCALE 4-6 (Moderate Protocol Atorvastatin Calcium 80 mg 05/19/25 21:00 05/21/25 20:39 Atorvastatin Calcium 20 Mg Tablet PO 06/18/25 20:59 80 mg HS HUMBERTO Administration Clopidogrel Bisulfate 75 mg 05/22/25 09:00 Clopidogrel Bisulfate 75 Mg Tablet PO 06/21/25 08:59 On Hold: 05/22/25 09:00 DAILY HUMBERTO Dextrose 25 ml 05/19/25 15:25 Dextrose 50%-Water Inj 50 Ml Syringe IV 06/18/25 15:24 Q15MIN PRN BG 50-70 responsive npo pt Dextrose 50 ml 05/19/25 15:25 Dextrose 50%-Water Inj 50 Ml Syringe IV 06/18/25 15:24 Q15MIN PRN BG <50 OR BG <70 & pt unresponsive Docusate Sodium 100 mg 05/21/25 21:00 05/22/25 09:28 Docusate Sod 100 Mg Capsule PO 06/20/25 20:59 Not Given BID COUNTS INCLUDE 234 BEDS AT THE [facility] Protocol Doxycycline Hyclate 100 mg 05/19/25 21:00 05/22/25 09:28 Doxycycline 100 Mg Tablet PO 05/26/25 20:59 Not Given BID HUMBERTO Finasteride 5 mg 05/19/25 13:45 05/22/25 09:28 Finasteride 5 Mg Tablet PO 06/18/25 13:44 Not Given QDAY COUNTS INCLUDE 234 BEDS AT THE [facility] Glucagon 1 mg 05/19/25 15:25 Glucagon Inj 1 Mg Vial IM Q15MIN PRN BG <70, and no IV access Ceftriaxone Sodium/Dextrose 2 gm in 50 mls @ 100 mls/hr 05/22/25 14:00 Rocephin/D5w 2gm IV 05/29/25 13:59 QDAY@1400 HUMBERTO Dextrose/Sodium Chloride 1,000 mls @ 125 mls/hr 05/22/25 10:45 05/22/25 11:13 D5-Ns IV 06/21/25 10:44 125 mls/hr .Q8H HUMBERTO Administration Insulin Human Lispro 0 unit 05/21/25 06:00 05/22/25 12:30 Insulin Lispro (Admelog) 1 Unit/0.01 Ml Unit SC 06/20/25 05:59 Not Given Q6HR COUNTS INCLUDE 234 BEDS AT THE [facility] Protocol Metoprolol Succinate 37.5 mg 05/20/25 09:00 05/22/25 09:28 Metoprolol Succinate Xl 25 Mg Tabcr PO 06/19/25 08:59 Not Given DAILY COUNTS INCLUDE 234 BEDS AT THE [facility] Morphine Sulfate 2 mg 05/20/25 16:39 Morphine Sulf Inj 4 Mg/Ml Vial IVP 05/25/25 16:38 Q4HR PRN pain 7-10 Multivitamins 1 tab 05/22/25 09:00 05/22/25 09:28 Multivitamins Tablet PO 06/21/25 08:59 Not Given QAM HUMBERTO Ondansetron HCl 4 mg 05/19/25 13:31 Ondansetron Inj 2 Mg/Ml Inj 2 Ml IVP 06/18/25 13:30 Q6H PRN NAUSEA OR VOMITING Protocol Pantoprazole Sodium 40 mg 05/19/25 13:45 05/22/25 09:28 Pantoprazole Inj 40 Mg Vial IVP 06/18/25 13:44 Not Given QDAY HUMBERTO Sodium Chloride 1 gm 05/19/25 22:00 05/22/25 05:20 Sodium Chloride 1 Gm Tablet PO 06/18/25 21:59 Not Given TID HUMBERTO Tamsulosin HCl 0.4 mg 05/19/25 13:45 05/22/25 09:29 Tamsulosin Hcl 0.4 Mg Capsule PO 06/18/25 13:44 Not Given QDAY HUMBERTO Plan Assessment and plan: Summary: Mr. Scott is a 79-year-old male with past medical history of hypertension, hyperlipidemia, type 2 diabetes mellitus, CAD status post coronary stent July 2023, peripheral arterial disease, BPH, SIADH, chronic hyponatremia, history of GI bleed (internal hemorrhoids) and osteomyelitis hallux of right distal hallux who presented to [facility] emergency department on 05/19/2025 with a chief complaint of mechanical ground-level fall, patient was found to have displaced intertrochanteric right hip fracture. Cardiology consulted for pre-op clearance. #Pre-op cardiac risk assessment #CAD status post PCI July 2023 Presented with ground-level mechanical fall, found to have displaced intertrochanteric right hip fracture in the ER confirmed on imaging. Orthopedics consulted, plan to undergo surgery in AM. Patient denies any chest pain/pressure, palpitations, dizziness, shortness of breath, leg swelling, presyncope and syncopal symptoms. Cardiology consulted for preop clearance clearance considering history of CAD. Cardiac catheterization report from July 2023: Patient underwent successful PCI right coronary artery posterior descending branch, 95% preprocedure stenosis was noted in the vessel. Additional stent was placed in PL branch of RCA. Cardiac cath findings August 2024: Widely patent stent involving the right coronary artery PDA, PL branches. Moderate disease of distal left anterior descending artery to be managed medically. Calcification of LAD, left main and circumflex arteries. No significant obstructive disease. Normal left ventricular function. Patient has been compliant on medication regimen currently on Plavix 75 mg and atorvastatin 80 mg along with metoprolol succinate 37.5 mg daily. Patient is established with form grader operator Dr. Dalila Mcdaniel and follows him outpatient. TSH 04/29/2025 1.48, lipid panel 05/01/2025 triglyceride 58, cholesterol 64, LDL 17, HDL 35, cholesterol/HDL ratio 1.8, A1c 04/29/2025 6.7 Patient's previous echo from August 2024 normal LV function LVEF 60%, technically difficult study. EKG obtained today shows sinus rhythm, frequent PVCs, some T wave inversion noted on V1?V3 Revised cardiac risk index score?2 points HEART score for Major Cardiac events?6 points, risk of mace 12-16% METS less than 4 Echocardiogram obtained 05/19/2025 shows 1. Left ventricle size is normal and systolic function is normal. Estimated ejection fraction is 55-60%. There is indeterminate diastolic function. 2. Right ventricle chamber size is normal and systolic function is normal. Estimated RVSP is 18 mmHg. 3. There is trace mitral valve regurgitation. 4. There is trace tricuspid valve regurgitation. 5. Not well visualized IVC with estimated RA pressure 8 mmHg. Recommendations: ? Agree with holding Plavix prior to surgery as patient's stents were placed more than 1 year ago. ? Based on patient's cardiac risk, patient is at acceptable but mildly elevated cardiac risk for surgery. No further cardiac workup needed as patient recently had angiogram earlier this year along with echo now. ? Patient underwent right hip cephalomedullary nail placement yesterday successfully with orthopedic surgeon, scheduled for right great toe amputation with general surgeon today. ? Keep potassium greater than 4 and magnesium greater than 2 at all times. ? Recommend transfusing pRBC prn, keep hemoglobin greater than 8, anemia workup outpatient #Hypertension #Hyperlipidemia #Peripheral arterial disease Patient on metoprolol 37.5 mg daily, atorvastatin 80 mg at bedtime. ?Continue atorvastatin and metoprolol home dose #Type 2 diabetes mellitus #BPH #SIADH #Chronic hyponatremia #History of GI bleed #Osteomyelitis hallux of right distal hallux #Constipation #Hypomagnesemia Management as per primary team. Thank you for the consult and allowing to participate in the care of the patient. Cardiology will continue to follow. Case discussed with Attending Physician Dr. Nathan Daniel MD Internal Medicine PGY-2 Disclaimer: This note was dictated by speech recognition. Minor errors in water pollution scientist may be present due to voice recognition software. Attending Provider Attestation/Addendum I have personally seen and examined the patient separately on the above date of service and discussed the plan of care with the resident. I reviewed the resident Dr. Adina Daniel consultation progress note and agree with the resident findings and plan in the note above and have also edited the documentation to reflect my findings and plan. Nathan Larios M.D. Interventional Cardiology
--- NOTE | 2025-05-22 15:01 | PD.SUROPNT ---
Date of Procedure 05/22/25 Pre Op Diagnosis Right first toe osteomyelitis refractory to conservative management Post Op Diagnosis Same Procedure Amputation of right first toe Findings Right first toe with thick eschar Procedure Description After discussion of risks and benefits, patient was brought to the operating room and general anesthesia was induced. He had already received preoperative antibiotics and was prepped and draped in the usual sterile fashion. After timeout the base of the toe was incised with electrocautery. The skin and subcutaneous tissue was divided with electrocautery until the distal phalanx was reached. It the distal phalanx was transected with a bone cutter and the edge of the remaining bone was smoothed out. There was a small amount of bleeding at the lateral aspect of the wound bed which was controlled with electrocautery. The wound was irrigated and the skin was reapproximated using vertical mattress sutures with a 2-0 nylon. The wound was covered with Adaptic and fluffs which were then secured with a Kerlix. Patient was extubated and brought to PACU in stable condition Pathology / specimen Other (Right first toe) Estimated Blood Loss 10 Surgeon Jenny Quispe MD Surgical Staff Operation Date: 05/22/25 14:00 Case Staff Anesthesiologist: Trav Molina
--- NOTE | 2025-05-22 15:04 | SUR.PHASEI ---
1504: pt received from OR bed. report received from DEBORAH Sal and Dr. Molina. oral airway in place. no s/s of resp. distress or discomfort. no s/s of pain or discomfort. dressing to right foot clean, dry and intact, no bleeding or discharge noted from dressing. fairchild cath in place and intact. dressing from right hip remains.
--- NOTE | 2025-05-22 15:04 | SUR.PHASEI ---
1504: pt received from OR via bed. oral airway in place at this time. no s/s of resp. distress or discomfort. no s/s pain or discomfort. dressing to right foot clean, dry and intact. no bleeding from the dressing noted.
--- NOTE | 2025-05-22 15:21 | SUR.PHASEI ---
1521: patient awake, open mouth when ask remove oral airway without any issues.
--- NOTE | 2025-05-22 15:35 | SUR.PHASEI ---
1535: report given to DEBORAH Wang.
[2025-05-22] MEDS: fentaNYL CIT INJ 50 mCg/ML AMP 2ML 25 MCG IVP (15:38)
--- NOTE | 2025-05-22 15:54 | SUR.PHASEI ---
1554: pt trasnfer back to room via bed. pt alert and oriented to name, place and time. no s/s of resp. distress or discomfort. denies nay pain or discomfort. dressing to right foot clean, dry and intact, no bleeding noted from dressing. fairchild cath in place and intact with color yellow urine, no odor. dressing to right hip remains-clean, dry and intact.
--- NOTE | 2025-05-22 15:54 | SUR.PHASEI ---
1554: called daughter Colette to inform that patient back to room 364, verbalizes understanding.
[2025-05-22 16:25] LABS: Hematocrit 23.8 % (41.0-53.0); Hemoglobin 8.2 g/dL (13.5-16.0)
[2025-05-22] MEDS: cefTRIAXone/D5w 2gm 2 GM/50 ML BAG IV (16:34)
[2025-05-22] MEDS: DOCUSATE SOD 100 MG CAPSULE PO (21:21)
[2025-05-22] MEDS: SODIUM CHLORIDE 1 GM TABLET PO (21:21)
[2025-05-22] MEDS: ATORVASTATIN CALCIUM 20 MG TABLET 80 MG PO (21:21)
[2025-05-22] MEDS: DOXYCYCLINE 100 MG TABLET PO (21:22)
--- NOTE | 2025-05-22 21:40 | PC.NURSE ---
called Dr. Gaspar regarding if patient had to be NPO after midnight, per doctor no procedures are scheduled for tomorrow that require him to be NPO, per doctor to keep patient's diet.
[2025-05-23] VITALS (11 sets, daily range): BP systolic 123–154; BP diastolic 57–78; PULSE 63–86; RESP 15–99; TEMP 36.1–36.8; O2SAT 94–100; BMI 12.0
[2025-05-23] MEDS: INSULIN LISPRO (AdmeLOG) 1 UNIT/0.01 ML UNIT SC ×3 (00:54→20:37)
[2025-05-23] MEDS: SODIUM CHLORIDE 1 GM TABLET PO ×3 (06:03→22:24)
[2025-05-23] MEDS: MULTIVITAMINS TABLET 1 TAB PO (09:19)
[2025-05-23] MEDS: DOXYCYCLINE 100 MG TABLET PO (09:19)
[2025-05-23] MEDS: TAMSULOSIN HCL 0.4 MG CAPSULE PO (09:19)
[2025-05-23] MEDS: DOCUSATE SOD 100 MG CAPSULE PO ×2 (09:19→20:50)
[2025-05-23] MEDS: FINASTERIDE 5 MG TABLET PO (09:20)
[2025-05-23] MEDS: METOPROLOL SUCCINATE XL 25 MG TABCR 37.5 MG PO (09:20)
--- NOTE | 2025-05-23 09:51 | PC.SS ---
DARRION submitted and downloaded LVL 1 no follow up needed
--- NOTE | 2025-05-23 11:00 | PC.SS ---
Addendum entered by Cathie Bangura 05/23/25 12:19: SS received a call back from pt dtr Colette, options provided to her for , [facility], [facility] (2 bed open), and [facility]. [facility] has not responded. Per Colette she will go see places when she can and make a decision. Colette had alot of questions in regards to his status and care. Colette wished to speak to Doctors when they are available. SS explained importance of choosing a facility as we go inot weekend alot of places may be booked. Call back number provided for her to reach out she she has made a choice. Original Note: SS met with pt at bedside to provide options for SNF, per pt he does not wish to go back to [facility] (Susana from [facility] confirmed pt has about 19 days left for Medicare). Pt wishes for his daughter to make the choice for him. SS attempted to contact pt dtr Colette Cooper [phone], no answer. VM was left.
--- NOTE | 2025-05-23 11:27 | PD.SURPROG ---
Documentation for date of: 05/23/25 Subjective Subjective Brief History: 79M with HTN, DMII, CAD s/p stenting 2023, hyponatremia and PAD, admitted for R hip fracture which was fixed yesterday additionally being treated for R great toe osteomyelitis. Toe wound has been present for 3 years and pt sees an outpatient safety clothing and equipment developer, I had seen him when he was hospitalized for hyponatremia but did not pursue amputation at that time due to the chronicity of the wound and because his Na remained quite low Narrative: Pain controlled, no acute events overnight Exam Vital Signs Temp Pulse Resp BP Pulse Ox O2 Del Method O2 Flow Rate 97.6 F 74 18 144/77 H 100 Room Air 6 05/23/25 08:00 05/23/25 09:20 05/23/25 08:20 05/23/25 09:20 05/23/25 08:00 05/23/25 08:00 05/22/25 15:35 Constitutional Constitutional: no acute distress Routine Respiratory Exam Respiratory: Present no resp distress Routine Extremities Exam Comments: right first toe wound with sutures intact, no erythema, no bleeding or drainage Assessment & Plan Plan 79M with HTN, DMII, CAD s/p stenting 2023, hyponatremia and PAD, admitted with R hip fracture which is now fixed additionally with chronic osteomyelitis s/p R great toe amputation 05/22, recovering well Toe touch weight bearing on R foot for 2 weeks postop OK for dc from my standpoint PROCEDURES: Procedures Amputation of right first toe
--- NOTE | 2025-05-23 11:56 | ESPR_ITS ---
Documentation for date of: 05/23/25 Subjective - Hospitalist Subjective Interval history: No acute overnight events. Patient seen and examined at bedside this morning. Appears comfortable, but complains of pain around bilateral ankles, controlled with analgesic regimen. Underwent toe amputation with general surgery yesterday. Discussed with general surgery, agreed on discontinuation of antibiotics tomorrow. Also discussed with orthopedic surgeon, agreed on starting patient on Eliquis for DVT prophylaxis. We will discontinue PICC line once patient is ready to be discharged. Awaiting placement. Review of Systems Review of Systems Systems Reviewed: All systems reviewed, normal except as documented Exam Vital Signs Temp Pulse Resp BP Pulse Ox O2 Del Method O2 Flow Rate 98.3 F 66 16 131/78 H 100 Room Air 6 05/23/25 20:00 05/23/25 20:00 05/23/25 20:00 05/23/25 20:00 05/23/25 20:00 05/23/25 20:00 05/22/25 15:35 Narrative GENERAL: Elderly male, in no acute distress, laying comfortably on bed HEENT: Normocephalic, atraumatic, extraocular movements intact, pupils equal and reactive to light NECK: Supple, no JVD or bruits. CARDIOVASULAR: RRR, S1 and S2 heard, without murmur, rubs or gallops. LUNGS/CHEST: Clear to auscultation bilaterally. No rails, rhonchi, or wheezing. ABDOMEN: Soft, nontender, with normal bowel sounds. No rebound, rigidity, or guarding. EXTREMITIES: Right foot covered in dressing, appears clean. Right hip dressing clean and dry SKIN: Warm and dry without rashes. NEURO: Alert, awake and oriented x4. Cranial nerves: II through XII grossly intact. normal speech, able to answer questions and follow commands appropriately, strength and sensation normal and equal bilaterally, no focal neurological deficits PSYCHIATRIC: Normal mood and affect. Objective - Hospitalist Labs Diagram: 05/23/25 15:37 05/23/25 15:37 Labs: Laboratory Results - last 24 hr 05/23/25 15:37 WBC 7.6 RBC 2.79 L Hgb 8.5 L Hct 25.1 L MCV 90 MCH 30.5 MCHC 33.9 RDW Std Deviation 54.4 H Plt Count 229 D Neut % (Auto) 80 Lymph % (Auto) 12 [place] % (Auto) 8 Eos % (Auto) 0 Baso % (Auto) 0 Neut # (Auto) 6.0 Lymph # (Auto) 0.9 L [place] # (Auto) 0.6 Eos # (Auto) 0.0 Baso # (Auto) 0.0 Immature Gran # (Auto) 0.06 H Absolute Nucleated RBC 0.00 Immature Gran % 1 H Nucleated RBC % 0 Sodium 131 L Potassium 4.4 Chloride 99 Carbon Dioxide 23.4 Anion Gap 9 BUN 14 Creatinine 0.6 Estim Creat Clear Calc 76.9 eGFR > 60 BUN/Creatinine Ratio 23 H Glucose 225 H D Calculated Osmolality 270 L Calcium 7.7 L Corrected Calcium 8.7 Total Bilirubin 0.6 D AST 27 ALT 18 Alkaline Phosphatase 81 D Total Protein 5.3 L Albumin 2.8 L Globulin 2.5 Albumin/Globulin Ratio 1.1 L Assessment & Plan Patient Synopsis 79-year-old male with CAD, chronic hyponatremia, PAD, and refractory right hallux osteomyelitis now s/p right first toe amputation today and POD#1 from right hip cephalomedullary nail, recovering well with stable post-transfusion hemoglobin and no new complaints. # POD#2, Right intertrochanteric femur fracture s/p cephalomedullary nail (05/21/25) Doing well postoperatively; pain well controlled. Alignment confirmed on imaging. Plan: * Continue postop care per orthopedics * Weightbearing as tolerated per op note * Continue pain control regimen * Monitor wound/dressing daily * Begin PT/OT when cleared * Trend CBC tomorrow * Started on Eliquis 2.5 twice daily for DVT prophylaxis # POD#1, Right first toe amputation for refractory osteomyelitis Successful amputation performed today. No intraoperative complications. Plan: * Antibiotic discontinued * Maintain clean, dry dressing; do not remove unless directed by surgery. * Daily wound checks starting tomorrow. * Pain control PRN. * Weightbearing per general surgery. * Monitor for signs of infection: fever, erythema, purulent drainage. * We will plan for discontinuation of PICC line on discharge #Preoperative cardiac risk assessment (CAD s/p stent 07/2023) [Cleared] High risk given age, CAD, anemia, PAD, current active infection. No chest pain or active cardiac symptoms today. Requires risk stratification for urgent hip repair. Plan: * Cardiology cleared patient * Baseline ECG, troponin * Continue home cardiac meds once reconciled (except hold anticoagulation if needed per ortho) * Avoid hypotension; maintain Hgb >8 #Acute blood loss anemia Hgb 7.3 on arrival. Likely combination of fracture-related blood loss + chronic anemia. Transfused 1 unit and receiving the second unit. 05/21: 2 units of PRBC transufed, Hgb this morning 9.3, no symptoms. 05/22: Hgb dropped overnight after one unit prbc improved to 8.9. Plan: * Continue to monitor. * CBC daily * Maintain Hgb >8 for surgery * Monitor post-op #Chronic hyponatremia/SIADH, resolved Na 131, stable near baseline. Recently discharged on salt tabs, fluid restriction. Na this morning 136 improving Plan: * Continue home salt tablets * Trend Na daily * Avoid aggressive fluids unless needed for hemodynamics * If worsening, consult nephrology (Dr. Marquez follows outpatient) #Type 2 diabetes mellitus Mild hyperglycemia on arrival (glucose 207). Glucose 164 this morning Plan: * Basal insulin per home regimen * SSI inpatient * Glucose checks qACHS * Hold metformin pre-op #Hypertension BP 128/71 Plan: * Resume home antihypertensives after med rec * Avoid hypotension pre-op, especially with anemia #Peripheral arterial disease Chronic; contributes to osteomyelitis risk. Plan: * Continue PAD management * Monitor distal perfusion post-surgery #BPH Plan: * Continue home tamsulosin/finasteride once reconciled * Monitor for urinary retention Hospital management: Diet: Dysphagia DVT Prophylaxis: Eliquis 2.5 twice daily Bowel regimen: PRN Code Status: Full Code Disposition: MedSur after hip surgery and toe amputation, awaiting placement Time Spent with Patient Time: Total time spent is greater than 50% in coordination of care (as documented) at patient's floor/unit and/or counseling patient: Time with patient: Greater than 35 minutes Reason for Continued Stay Reason for continued stay: further monitoring Quality Measures Quality Measures VTE prophylaxis Advance care planning discussed with:: patient
[2025-05-23] MEDS: HYDROcodone/APAP 5/325 TABLET 1 TAB PO (12:35)
[2025-05-23] MEDS: cefTRIAXone/D5w 2gm 2 GM/50 ML BAG IV (13:17)
--- NOTE | 2025-05-23 15:15 | PD.IMPROG ---
Documentation for date of: 05/23/25 Subjective Subjective Interval history: 05/23/25 Patient seen and examined at bedside. No new cardiac complains. Labs and vitals look stable. Patient s/p right first toe amputation 05/22/25. No cardiac complications with the surgery. Patient recommended to follow up with dr. Mcdaniel in 1 week after discharge. Exam Vital Signs Temp Pulse Resp BP Pulse Ox O2 Del Method O2 Flow Rate 97.6 F 72 17 154/66 H 96 Room Air 6 05/23/25 12:05/23/25 12:05/23/25 12:05/23/25 12:05/23/25 12:05/23/25 12:00 05/22/25 15:35 Narrative Exam GENERAL: Awake, answering questions appropriately, appears stated age, frail appearing HEENT: NC/AT. Moist mucosa. PERRLA/EOMI. CARDIO: Heart RRR, no obvious murmurs, no JVD. PULM: No coughing or visible SOB. Lungs CTA B/L. GI: Abdomen soft, NT/ND, +BS. SKIN/MSK/EXT: Atrophic bilateral lower extremities, right AC PICC line noted. Right toe bandaged secondary to osteomyelitis. No discoloration/rashes/edema/amputations noted. +Pedal pulses present B/L. NEURO: Oriented x3, no focal neurologic deficits noted. Objective Labs 05/22/25 16:03 05/22/25 07:20 Labs: Laboratory Results - last 24 hr 05/22/25 16:03 Hgb 8.2 L Hct 23.8 L Blood Type O Positive Antibody Screen NEGATIVE Crossmatch See Detail Blood Bank Wristband ID Yes Assessment & Plan A&P Narrative Mr. Scott is a 79-year-old male with past medical history of hypertension, hyperlipidemia, type 2 diabetes mellitus, CAD status post coronary stent July 2023, peripheral arterial disease, BPH, SIADH, chronic hyponatremia, history of GI bleed (internal hemorrhoids) and osteomyelitis hallux of right distal hallux who presented to [facility] emergency department on 05/19/2025 with a chief complaint of mechanical ground-level fall, patient was found to have displaced intertrochanteric right hip fracture. Cardiology consulted for pre-op clearance. #Pre-op cardiac risk assessment #CAD status post PCI July 2023 Presented with ground-level mechanical fall, found to have displaced intertrochanteric right hip fracture in the ER confirmed on imaging. Orthopedics consulted, plan to undergo surgery in AM. Patient denies any chest pain/pressure, palpitations, dizziness, shortness of breath, leg swelling, presyncope and syncopal symptoms. Cardiology consulted for preop clearance clearance considering history of CAD. Cardiac catheterization report from July 2023: Patient underwent successful PCI right coronary artery posterior descending branch, 95% preprocedure stenosis was noted in the vessel. Additional stent was placed in PL branch of RCA. Cardiac cath findings August 2024: Widely patent stent involving the right coronary artery PDA, PL branches. Moderate disease of distal left anterior descending artery to be managed medically. Calcification of LAD, left main and circumflex arteries. No significant obstructive disease. Normal left ventricular function. Patient has been compliant on medication regimen currently on Plavix 75 mg and atorvastatin 80 mg along with metoprolol succinate 37.5 mg daily. 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 Dalila Mcdaniel and follows him outpatient. TSH 04/29/2025 1.48, lipid panel 05/01/2025 triglyceride 58, cholesterol 64, LDL 17, HDL 35, cholesterol/HDL ratio 1.8, A1c 04/29/2025 6.7 Patient's previous echo from August 2024 normal LV function LVEF 60%, technically difficult study. EKG obtained today shows sinus rhythm, frequent PVCs, some T wave inversion noted on V1?V3 Revised cardiac risk index score?2 points HEART score for Major Cardiac events?6 points, risk of mace 12-16% METS less than 4 Echocardiogram obtained 05/19/2025 shows 1. Left ventricle size is normal and systolic function is normal. Estimated ejection fraction is 55-60%. There is indeterminate diastolic function. 2. Right ventricle chamber size is normal and systolic function is normal. Estimated RVSP is 18 mmHg. 3. There is trace mitral valve regurgitation. 4. There is trace tricuspid valve regurgitation. 5. Not well visualized IVC with estimated RA pressure 8 mmHg. Recommendations: ? Agree with holding Plavix prior to surgery as patient's stents were placed more than 1 year ago. ? Based on patient's cardiac risk, patient is at acceptable but mildly elevated cardiac risk for surgery. No further cardiac workup needed as patient recently had angiogram earlier this year along with echo now. ? Patient underwent right hip cephalomedullary nail placement yesterday successfully with orthopedic surgeon, scheduled for right great toe amputation with general surgeon today. ? Keep potassium greater than 4 and magnesium greater than 2 at all times. ? Recommend transfusing pRBC prn, keep hemoglobin greater than 8, anemia workup outpatient 05/23/25 Patient s/p right first toe amputation 05/22/25. No cardiac complications with the surgery. Patient recommended to follow up with dr. Mcdaniel in 1 week after discharge. #Hypertension #Hyperlipidemia #Peripheral arterial disease Patient on metoprolol 37.5 mg daily, atorvastatin 80 mg at bedtime. ?Continue atorvastatin and metoprolol home dose #Type 2 diabetes mellitus #BPH #SIADH #Chronic hyponatremia #History of GI bleed #Osteomyelitis hallux of right distal hallux #Constipation #Hypomagnesemia Management as per primary team. Management of rest of the medical conditions as per primary team and other consultants. Thank you for the consult and allowing me to participate in the care of the patient. Cardiology will continue to follow. Nathan Larios M.D. Interventional Cardiology Time Spent With Patient Time: Total time spent is greater than 50% in coordination of care (as documented) at patient's floor/unit and/or counseling patient:
[2025-05-23 16:51] LABS: Basophils # (Auto) 0.0 Thou/mm3 (0.0-0.2); Basophils % (Auto) 0 % (0-2.5); Eosinophils # (Auto) 0.0 Thou/mm3 (0.0-0.5); Eosinophils % (Auto) 0 % (0-10); Hematocrit 25.1 % (41.0-53.0); Immature Granulocytes Auto 0.06 Thou/mm3 (0.00-0.00); Lymphocytes # (Auto) 0.9 Thou/mm3 (1.0-4.8); Lymphocytes % (Auto) 12 % (10-50); Mean Corpuscular HGB Conc 33.9 g/dl (31.0-37.0); Mean Corpuscular Hemoglobin 30.5 pg (25.0-35.0); Mean Corpuscular Volume 90 fL (80-100); Monocytes # (Auto) 0.6 Thou/mm3 (0.0-0.8); Monocytes % (Auto) 8 % (0-12); Neutrophils # (Auto) 6.0 Thou/mm3 (1.8-7.7); Neutrophils % (Auto) 80 % (37-80); Nucleated Red Blood Cell # 0.00 Thou/mm3 (0.00-0.00); Nucleated Red Blood Cell % 0 /100 WBC (0); Platelet Count 229 Thou/mm3 (140-440); RDW Standard Deviation 54.4 fL (35.1-43.9); Red Blood Count 2.79 Miln/mm3 (4.50-5.90); White Blood Count 7.6 Thou/mm3 (3.8-10.6)
[2025-05-23 16:55] LABS: Hemoglobin 8.5 g/dL (13.5-16.0)
[2025-05-23 17:05] LABS: Alanine Aminotransferase 18 U/L (10-49); Albumin, Serum 2.8 gm/dL (3.4-4.8); Albumin/Globulin Ratio 1.1 (1.2-2.2); Alkaline Phosphatase 81 U/L (46-116); Anion Gap 9 (7-16); Aspartate Amino Transferase 27 U/L (0-34); BUN/Creatinine Ratio 23 Ratio (12-20); Bilirubin,Total 0.6 mg/dL (0.3-1.2); Blood Urea Nitrogen 14 mg/dL (9-23); Calcium 7.7 mg/dL (8.3-10.6); Calcium (Corrected) 8.7 mg/dL (8.5-10.1); Carbon Dioxide 23.4 mMol/L (20.0-31.0); Chloride 99 mMol/L (98-107); Creatinine (Component) 0.6 mg/dL (0.6-1.3); Estimated Creatinine Clearance 76.9 mL/min (>60); Globulin 2.5 gm/dL (2.3-3.5); Glucose 225 mg/dL (74-106); Osmolality,Calculated 270 (275-295); Potassium 4.4 mMol/L (3.4-5.1); Sodium 131 mMol/L (136-145); Total Protein 5.3 gm/dL (5.7-8.2); eGFR > 60 See Note
[2025-05-23] MEDS: ATORVASTATIN CALCIUM 20 MG TABLET 80 MG PO (20:50)
[2025-05-23] MEDS: APIXABAN 2.5 MG TABLET PO (20:50)
--- NOTE | 2025-05-23 23:16 | PC.NURSE ---
Pt removed PICC line from right upper arm. Patient verbalized, I don't like it. No bleeding noted to the site. An IV Line present to the left AC and wrapped with a dressing. Avasure will be placed to the room. Dr. Oliva was made aware.
[2025-05-24] VITALS (15 sets, daily range): BP systolic 118–145; BP diastolic 60–90; PULSE 57–84; RESP 16–98; TEMP 36.1–36.7; O2SAT 96–99
[2025-05-24] MEDS: SODIUM CHLORIDE 1 GM TABLET PO ×3 (05:27→21:28)
[2025-05-24 05:39] LABS: Basophils # (Auto) 0.0 Thou/mm3 (0.0-0.2); Basophils % (Auto) 0 % (0-2.5); Eosinophils # (Auto) 0.1 Thou/mm3 (0.0-0.5); Eosinophils % (Auto) 1 % (0-10); Hematocrit 22.9 % (41.0-53.0); Immature Granulocytes Auto 0.06 Thou/mm3 (0.00-0.00); Lymphocytes # (Auto) 0.8 Thou/mm3 (1.0-4.8); Lymphocytes % (Auto) 13 % (10-50); Mean Corpuscular HGB Conc 33.6 g/dl (31.0-37.0); Mean Corpuscular Hemoglobin 30.8 pg (25.0-35.0); Mean Corpuscular Volume 92 fL (80-100); Monocytes # (Auto) 0.3 Thou/mm3 (0.0-0.8); Monocytes % (Auto) 5 % (0-12); Neutrophils # (Auto) 4.9 Thou/mm3 (1.8-7.7); Neutrophils % (Auto) 80 % (37-80); Nucleated Red Blood Cell # 0.00 Thou/mm3 (0.00-0.00); Nucleated Red Blood Cell % 0 /100 WBC (0); Platelet Count 209 Thou/mm3 (140-440); RDW Standard Deviation 54.1 fL (35.1-43.9); Red Blood Count 2.50 Miln/mm3 (4.50-5.90); White Blood Count 6.1 Thou/mm3 (3.8-10.6)
[2025-05-24 05:46] LABS: Hemoglobin 7.7 g/dL (13.5-16.0)
[2025-05-24 05:56] LABS: Alanine Aminotransferase 18 U/L (10-49); Albumin, Serum 2.4 gm/dL (3.4-4.8); Albumin/Globulin Ratio 1.1 (1.2-2.2); Alkaline Phosphatase 68 U/L (46-116); Anion Gap 8 (7-16); Aspartate Amino Transferase 23 U/L (0-34); BUN/Creatinine Ratio 22 Ratio (12-20); Bilirubin,Total 0.8 mg/dL (0.3-1.2); Blood Urea Nitrogen 11 mg/dL (9-23); Calcium 7.6 mg/dL (8.3-10.6); Calcium (Corrected) 8.9 mg/dL (8.5-10.1); Carbon Dioxide 24.5 mMol/L (20.0-31.0); Chloride 99 mMol/L (98-107); Creatinine (Component) 0.5 mg/dL (0.6-1.3); Estimated Creatinine Clearance 92.2 mL/min (>60); Globulin 2.1 gm/dL (2.3-3.5); Glucose 138 mg/dL (74-106); Magnesium 1.4 mg/dL (1.6-2.6); Osmolality,Calculated 264 (275-295); Phosphorous 2.6 mg/dL (2.4-5.1); Potassium 4.2 mMol/L (3.4-5.1); Sodium 131 mMol/L (136-145); Total Protein 4.5 gm/dL (5.7-8.2); eGFR > 60 See Note
--- NOTE | 2025-05-24 08:32 | XR_ITS ---
Exam: Chest 1 view, AP Date and time of exam: 05/24/2025, 8:36 a.m. INDICATION: Rule out aspiration. Comparison: 06/06/2025 Findings: Normal heart size. No mediastinal adenopathy. No acute fracture No pulmonary edema or pneumonia. Chronic interstitial changes No focal masses. No pneumothorax Impression: . Chronic changes as above. No acute cardiopulmonary process
--- NOTE | 2025-05-24 08:37 | PC.NURSE ---
SAFETY INSTRUCTOR called, pt was chocking on food when I came in the room. Chest xray ordered and pt made NPO. Pt states he chokes on water every morning
--- NOTE | 2025-05-24 10:48 | ESPR_ITS ---
Documentation for date of: 05/24/25 Subjective Subjective Interval history: Patient seen and examined at bedside, rapid response called earlier this morning for choking. Patient reports this is a chronic problem. Patient made n.p.o., primary team doing further workup. Labs reviewed magnesium 1.4, will replete. Patient denies any chest pain shortness of breath and has no other cardiac complaints. Started on Eliquis 2.5mg BID for DVT prophylaxis by primrary team, continue both Plavix and Eliquis as patient does have h/o fem-pop bypass graft surgery. Consider Switching to Aspirin if concern of increased bleeding risk. Patient to follow-up with primary supervisor mirror fabrication Dr. Mcdaniel in 1 week of discharge Exam Vital Signs Temp Pulse Resp BP Pulse Ox O2 Del Method O2 Flow Rate 97.0 F 84 18 120/70 97 Room Air 6 05/24/25 08:00 05/24/25 08:15 05/24/25 08:15 05/24/25 08:00 05/24/25 08:00 05/24/25 08:00 05/22/25 15:35 Narrative Exam GENERAL: Awake, answering questions appropriately, appears stated age, frail appearing HEENT: NC/AT. Moist mucosa. PERRLA/EOMI. CARDIO: Heart RRR, no obvious murmurs, no JVD. PULM: No coughing or visible SOB. Lungs CTA B/L. GI: Abdomen soft, NT/ND, +BS. SKIN/MSK/EXT: Atrophic bilateral lower extremities, right AC PICC line noted. Right toe bandaged secondary to osteomyelitis. No discoloration/rashes/edema/amputations noted. +Pedal pulses present B/L. NEURO: Oriented x3, no focal neurologic deficits noted. Objective Labs 05/26/25 04:29 05/26/25 04:29 Labs: Laboratory Results - last 24 hr 05/23/25 05/24/25 15:37 04:11 WBC 7.6 6.1 RBC 2.79 L 2.50 L Hgb 8.5 L 7.7 L Hct 25.1 L 22.9 L MCV 90 92 MCH 30.5 30.8 MCHC 33.9 33.6 RDW Std Deviation 54.4 H 54.1 H Plt Count 229 D 209 Neut % (Auto) 80 80 Lymph % (Auto) 12 13 [place] % (Auto) 8 5 Eos % (Auto) 0 1 Baso % (Auto) 0 0 Neut # (Auto) 6.0 4.9 Lymph # (Auto) 0.9 L 0.8 L [place] # (Auto) 0.6 0.3 Eos # (Auto) 0.0 0.1 Baso # (Auto) 0.0 0.0 Immature Gran # (Auto) 0.06 H 0.06 H Absolute Nucleated RBC 0.00 0.00 Immature Gran % 1 H 1 H Nucleated RBC % 0 0 Sodium 131 L 131 L Potassium 4.4 4.2 Chloride 99 99 Carbon Dioxide 23.4 24.5 Anion Gap 9 8 BUN 14 11 Creatinine 0.6 0.5 L Estim Creat Clear Calc 76.9 92.2 eGFR > 60 > 60 BUN/Creatinine Ratio 23 H 22 H Glucose 225 H D 138 H D Calculated Osmolality 270 L 264 L Calcium 7.7 L 7.6 L Corrected Calcium 8.7 8.9 Phosphorus 2.6 Magnesium 1.4 L Total Bilirubin 0.6 D 0.8 AST 27 23 ALT 18 18 Alkaline Phosphatase 81 D 68 Total Protein 5.3 L 4.5 L Albumin 2.8 L 2.4 L Globulin 2.5 2.1 L Albumin/Globulin Ratio 1.1 L 1.1 L Quality Measures Quality Measures VTE prophylaxis Advance care planning discussed with:: patient Assessment & Plan Assessment Current Active Medications: Generic Name Dose Route Start Last Admin Trade Name Freq PRN Reason Stop Dose Admin Acetaminophen 650 mg 05/19/25 13:31 Acetaminophen 325 Mg Tablet PO 06/18/25 13:30 Q6H PRN Fever >100.4 pr pain 1-5 Hydrocodone Bitart/Acetaminophen 1 tab 05/20/25 16:40 05/23/25 12:35 Hydrocodone/Apap 5/325 Tablet PO 05/24/25 13:30 1 tab Q4HR PRN Administration PAIN SCALE 4-6 (Moderate Protocol Apixaban 2.5 mg 05/23/25 21:00 05/24/25 09:09 Apixaban 2.5 Mg Tablet PO 06/22/25 20:59 Not Given BID HUMBERTO Atorvastatin Calcium 80 mg 05/19/25 21:00 05/23/25 20:50 Atorvastatin Calcium 20 Mg Tablet PO 06/18/25 20:59 80 mg HS HUMBERTO Administration Clopidogrel Bisulfate 75 mg 05/22/25 09:00 Clopidogrel Bisulfate 75 Mg Tablet PO 06/21/25 08:59 DAILY [facility] Dextrose 25 ml 05/19/25 15:25 Dextrose 50%-Water Inj 50 Ml Syringe IV 06/18/25 15:24 Q15MIN PRN BG 50-70 responsive npo pt Dextrose 50 ml 05/19/25 15:25 Dextrose 50%-Water Inj 50 Ml Syringe IV 06/18/25 15:24 Q15MIN PRN BG <50 OR BG <70 & pt unresponsive Docusate Sodium 100 mg 05/21/25 21:00 05/24/25 09:09 Docusate Sod 100 Mg Capsule PO 06/20/25 20:59 Not Given BID [facility] Protocol Finasteride 5 mg 05/19/25 13:45 05/24/25 09:09 Finasteride 5 Mg Tablet PO 06/18/25 13:44 Not Given QDAY [facility] Glucagon 1 mg 05/19/25 15:25 Glucagon Inj 1 Mg Vial IM Q15MIN PRN BG <70, and no IV access Magnesium Sulfate 4 gm in 50 mls @ 12.5 mls/hr 05/24/25 09:48 Magnesium Sulfate Ivpb IV 05/24/25 13:47 X1 ONE Magnesium Sulfate 2 gm in 50 mls @ 25 mls/hr 05/24/25 16:00 Magnesium Sulfate Ivpb IV 05/24/25 17:59 X1 ONE Insulin Human Lispro 0 unit 05/23/25 07:30 05/24/25 07:47 Insulin Lispro (Admelog) 1 Unit/0.01 Ml Unit SC 06/22/25 07:29 Not Given ACHS [facility] Protocol Metoprolol Succinate 37.5 mg 05/20/25 09:00 05/24/25 09:09 Metoprolol Succinate Xl 25 Mg Tabcr PO 06/19/25 08:59 Not Given DAILY [facility] Morphine Sulfate 2 mg 05/20/25 16:39 Morphine Sulf Inj 4 Mg/Ml Vial IVP 05/25/25 16:38 Q4HR PRN pain 7-10 Multivitamins 1 tab 05/22/25 09:00 05/24/25 09:10 Multivitamins Tablet PO 06/21/25 08:59 Not Given QAM [facility] Ondansetron HCl 4 mg 05/19/25 13:31 Ondansetron Inj 2 Mg/Ml Inj 2 Ml IVP 06/18/25 13:30 Q6H PRN NAUSEA OR VOMITING Protocol Pantoprazole Sodium 40 mg 05/19/25 13:45 05/24/25 08:43 Pantoprazole Inj 40 Mg Vial IVP 06/18/25 13:44 40 mg QDAY HUMBERTO Administration Sodium Chloride 1 gm 05/19/25 22:00 05/24/25 05:27 Sodium Chloride 1 Gm Tablet PO 06/18/25 21:59 1 gm TID HUMBERTO Administration Tamsulosin HCl 0.4 mg 05/19/25 13:45 05/24/25 09:10 Tamsulosin Hcl 0.4 Mg Capsule PO 06/18/25 13:44 Not Given QDAY HUMBERTO Plan Assessment and plan: Summary: Mr. Scott is a 79-year-old male with past medical history of hypertension, hyperlipidemia, type 2 diabetes mellitus, CAD status post coronary stent July 2023, peripheral arterial disease h/o fem-pop bypass graft surgery, BPH, SIADH, chronic hyponatremia, history of GI bleed (internal hemorrhoids) and osteomyelitis hallux of right distal hallux who presented to [facility] emergency department on 05/19/2025 with a chief complaint of mechanical ground-level fall, patient was found to have displaced intertrochanteric right hip fracture. Cardiology consulted for pre-op clearance. #Pre-op cardiac risk assessment #CAD status post PCI July 2023 Presented with ground-level mechanical fall, found to have displaced intertrochanteric right hip fracture in the ER confirmed on imaging. Orthopedics consulted, plan to undergo surgery in AM. Patient denies any chest pain/pressure, palpitations, dizziness, shortness of breath, leg swelling, presyncope and syncopal symptoms. Cardiology consulted for preop clearance clearance considering history of CAD. Cardiac catheterization report from July 2023: Patient underwent successful PCI right coronary artery posterior descending branch, 95% preprocedure stenosis was noted in the vessel. Additional stent was placed in PL branch of RCA. Cardiac cath findings August 2024: Widely patent stent involving the right coronary artery PDA, PL branches. Moderate disease of distal left anterior descending artery to be managed medically. Calcification of LAD, left main and circumflex arteries. No significant obstructive disease. Normal left ventricular function. Patient has been compliant on medication regimen currently on Plavix 75 mg and atorvastatin 80 mg along with metoprolol succinate 37.5 mg daily. Patient is established with supervisor mirror fabrication Dr. Dalila Mcdaniel and follows him outpatient. TSH 04/29/2025 1.48, lipid panel 05/01/2025 triglyceride 58, cholesterol 64, LDL 17, HDL 35, cholesterol/HDL ratio 1.8, A1c 04/29/2025 6.7 Patient's previous echo from August 2024 normal LV function LVEF 60%, technically difficult study. EKG obtained today shows sinus rhythm, frequent PVCs, some T wave inversion noted on V1?V3 Revised cardiac risk index score?2 points HEART score for Major Cardiac events?6 points, risk of mace 12-16% METS less than 4 Echocardiogram obtained 05/19/2025 shows 1. Left ventricle size is normal and systolic function is normal. Estimated ejection fraction is 55-60%. There is indeterminate diastolic function. 2. Right ventricle chamber size is normal and systolic function is normal. Estimated RVSP is 18 mmHg. 3. There is trace mitral valve regurgitation. 4. There is trace tricuspid valve regurgitation. 5. Not well visualized IVC with estimated RA pressure 8 mmHg. Recommendations: ? Agree with holding Plavix prior to surgery as patient's stents were placed more than 1 year ago. ? Based on patient's cardiac risk, patient is at acceptable but mildly elevated cardiac risk for surgery. No further cardiac workup needed as patient recently had angiogram earlier this year along with echo now. ? 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 Keep potassium greater than 4 and magnesium greater than 2 at all times. ? Recommend transfusing pRBC prn, keep hemoglobin greater than 8, anemia workup outpatient ? Started on Eliquis 2.5mg BID for DVT prophylaxis by primrary team, continue both Plavix and Eliquis as patient does have h/o fem-pop bypass graft surgery. ? Consider Switching to Aspirin if concern of increased bleeding risk. ? Recommend patient follow-up with primary supervisor mirror fabrication Dr. Mcdaniel within 1 week of discharge. #Hypertension #Hyperlipidemia #Peripheral arterial disease Patient on metoprolol 37.5 mg daily, atorvastatin 80 mg at bedtime. ?Continue atorvastatin and metoprolol home dose #Type 2 diabetes mellitus #BPH #SIADH #Chronic hyponatremia #History of GI bleed #Osteomyelitis hallux of right distal hallux #Constipation #Hypomagnesemia Management as per primary team. Thank you for the consult and allowing to participate in the care of the patient. Cardiology will continue to follow. Case discussed with Attending Physician Dr. Nathan Daniel MD Internal Medicine PGY-2 Disclaimer: This note was dictated by speech recognition. Minor errors in vp digital marketing social media and crm may be present due to voice recognition software. Attending Provider Attestation/Addendum I have personally seen and examined the patient separately on the above date of service and discussed the plan of care with the resident. I reviewed the resident Dr. Adina Daniel consultation progress note and agree with the resident findings and plan in the note above and have also edited the documentation to reflect my findings and plan. Nathan Larios M.D. Interventional Cardiology
[2025-05-24] MEDS: Magnesium Sulfate 4 GM Ivpb 4 GM/50 ML BAG IV (11:34)
[2025-05-24] MEDS: INSULIN LISPRO (AdmeLOG) 1 UNIT/0.01 ML UNIT SC ×3 (11:54→20:42)
--- NOTE | 2025-05-24 12:31 | ESPR_ITS ---
<Statement entered by Emil Barton MD - 05/24/25 13:15> Patient was examined and case was reviewed with team including attending physician. Note reviewed, I agree with most of its contents and agree with the patient's care as documented by Dr. Bartholomew Patient seen today at the bedside found awake, alert, orientedx3. No overnight events reported. Vitals and labs reviewed. Sodium 131, already on his home salt tablets will continues to monitor. Patient had rapid response in the morning due to aspiration event with p.o. food. Chest x-ray was ordered showed worsening pneumonia compared to previous x-rays. Aspiration precautions were ordered as well a speech therapy evaluation and placed n.p.o. Patient already had his toe amputation and hip replacement with general surgery and orthopedic surgery respectively. Overall clinically improving. Case discussed with my attending Dr. Chika Barton MD PGY-2 Disclaimer: Despite multiple revisions, due to the dictation software being used, the document bellow may not be free of grammatical errors including phonetic/typographic errors. However, this does not deter from our commitment to providing health care in the patient's best interest in mind. Documentation for date of: 05/24/25 Subjective Subjective Interval history: Patient seen at bedside this morning. He had an episode of choking while eating, which patient and granddaughter report occurs mainly with liquids rather than solids and has been happening intermittently at home as well. No current shortness of breath, chest pain, or persistent cough. Patient otherwise denies new complaints. He does report discomfort in his lower back/buttocks and requests repositioning; will verify with surgical teams regarding mobility limitations. Granddaughter at bedside confirms history of liquid-associated choking episodes at home. No fevers, chills, nausea, vomiting, or chest pain. Exam Vital Signs Temp Pulse Resp BP Pulse Ox O2 Del Method O2 Flow Rate 97.0 F 84 18 120/70 97 Room Air 6 05/24/25 08:00 05/24/25 08:15 05/24/25 08:15 05/24/25 08:00 05/24/25 08:00 05/24/25 08:00 05/22/25 15:35 Narrative Exam GENERAL: Elderly male, in no acute distress, laying comfortably on bed HEENT: Normocephalic, atraumatic, extraocular movements intact, pupils equal and reactive to light NECK: Supple, no JVD or bruits. CARDIOVASULAR: RRR, S1 and S2 heard, without murmur, rubs or gallops. LUNGS/CHEST: Clear to auscultation bilaterally. No rails, rhonchi, or wheezing. ABDOMEN: Soft, nontender, with normal bowel sounds. No rebound, rigidity, or guarding. EXTREMITIES: Right foot covered in dressing, appears clean. Right hip dressing clean and dry SKIN: Warm and dry without rashes. NEURO: Alert, awake and oriented x4. Cranial nerves: II through XII grossly intact. normal speech, able to answer questions and follow commands appropriately, strength and sensation normal and equal bilaterally, no focal neurological deficits PSYCHIATRIC: Normal mood and affect. Objective Labs 05/25/25 06:25 05/25/25 06:25 Labs: Laboratory Results - last 24 hr 05/23/25 05/24/25 15:37 04:11 WBC 7.6 6.1 RBC 2.79 L 2.50 L Hgb 8.5 L 7.7 L Hct 25.1 L 22.9 L MCV 90 92 MCH 30.5 30.8 MCHC 33.9 33.6 RDW Std Deviation 54.4 H 54.1 H Plt Count 229 D 209 Neut % (Auto) 80 80 Lymph % (Auto) 12 13 [place] % (Auto) 8 5 Eos % (Auto) 0 1 Baso % (Auto) 0 0 Neut # (Auto) 6.0 4.9 Lymph # (Auto) 0.9 L 0.8 L [place] # (Auto) 0.6 0.3 Eos # (Auto) 0.0 0.1 Baso # (Auto) 0.0 0.0 Immature Gran # (Auto) 0.06 H 0.06 H Absolute Nucleated RBC 0.00 0.00 Immature Gran % 1 H 1 H Nucleated RBC % 0 0 Sodium 131 L 131 L Potassium 4.4 4.2 Chloride 99 99 Carbon Dioxide 23.4 24.5 Anion Gap 9 8 BUN 14 11 Creatinine 0.6 0.5 L Estim Creat Clear Calc 76.9 92.2 eGFR > 60 > 60 BUN/Creatinine Ratio 23 H 22 H Glucose 225 H D 138 H D Calculated Osmolality 270 L 264 L Calcium 7.7 L 7.6 L Corrected Calcium 8.7 8.9 Phosphorus 2.6 Magnesium 1.4 L Total Bilirubin 0.6 D 0.8 AST 27 23 ALT 18 18 Alkaline Phosphatase 81 D 68 Total Protein 5.3 L 4.5 L Albumin 2.8 L 2.4 L Globulin 2.5 2.1 L Albumin/Globulin Ratio 1.1 L 1.1 L Quality Measures Quality Measures VTE prophylaxis Advance care planning discussed with:: patient Assessment & Plan Assessment Current Active Medications: Generic Name Dose Route Start Last Admin Trade Name Mehul PRN Reason Stop Dose Admin Acetaminophen 650 mg 05/19/25 13:31 Acetaminophen 325 Mg Tablet PO 06/18/25 13:30 Q6H PRN Fever >100.4 pr pain 1-5 Hydrocodone Bitart/Acetaminophen 1 tab 05/20/25 16:40 05/23/25 12:35 Hydrocodone/Apap 5/325 Tablet PO 05/24/25 13:30 1 tab Q4HR PRN Administration PAIN SCALE 4-6 (Moderate Protocol Apixaban 2.5 mg 05/23/25 21:00 05/24/25 09:09 Apixaban 2.5 Mg Tablet PO 06/22/25 20:59 Not Given BID HUMBERTO Atorvastatin Calcium 80 mg 05/19/25 21:00 05/23/25 20:50 Atorvastatin Calcium 20 Mg Tablet PO 06/18/25 20:59 80 mg HS HUMBERTO Administration Clopidogrel Bisulfate 75 mg 05/22/25 09:00 Clopidogrel Bisulfate 75 Mg Tablet PO 06/21/25 08:59 DAILY HUM[facility]ERTO Dextrose 25 ml 05/19/25 15:25 Dextrose 50%-Water Inj 50 Ml Syringe IV 06/18/25 15:24 Q15MIN PRN BG 50-70 responsive npo pt Dextrose 50 ml 05/19/25 15:25 Dextrose 50%-Water Inj 50 Ml Syringe IV 06/18/25 15:24 Q15MIN PRN BG <50 OR BG <70 & pt unresponsive Docusate Sodium 100 mg 05/21/25 21:00 05/24/25 09:09 Docusate Sod 100 Mg Capsule PO 06/20/25 20:59 Not Given BID HUMBERTO Protocol Finasteride 5 mg 05/19/25 13:45 05/24/25 09:09 Finasteride 5 Mg Tablet PO 06/18/25 13:44 Not Given QDAY HUMBERTO Glucagon 1 mg 05/19/25 15:25 Glucagon Inj 1 Mg Vial IM Q15MIN PRN BG <70, and no IV access Magnesium Sulfate 4 gm in 50 mls @ 12.5 mls/hr 05/24/25 09:48 05/24/25 11:34 Magnesium Sulfate Ivpb IV 05/24/25 13:47 12.5 mls/hr X1 ONE Administration Magnesium Sulfate 2 gm in 50 mls @ 25 mls/hr 05/24/25 16:00 Magnesium Sulfate Ivpb IV 05/24/25 17:59 X1 ONE Insulin Human Lispro 0 unit 05/23/25 07:30 05/24/25 11:54 Insulin Lispro (Admelog) 1 Unit/0.01 Ml Unit SC 06/22/25 07:29 2 unit ACHS HUMBERTO Administration Protocol Metoprolol Succinate 37.5 mg 05/20/25 09:00 05/24/25 09:09 Metoprolol Succinate Xl 25 Mg Tabcr PO 06/19/25 08:59 Not Given DAILY [facility] Morphine Sulfate 2 mg 05/20/25 16:39 Morphine Sulf Inj 4 Mg/Ml Vial IVP 05/25/25 16:38 Q4HR PRN pain 7-10 Multivitamins 1 tab 05/22/25 09:00 05/24/25 09:10 Multivitamins Tablet PO 06/21/25 08:59 Not Given QAM HUM[facility]O Ondansetron HCl 4 mg 05/19/25 13:31 Ondansetron Inj 2 Mg/Ml Inj 2 Ml IVP 06/18/25 13:30 Q6H PRN NAUSEA OR VOMITING Protocol Pantoprazole Sodium 40 mg 05/19/25 13:45 05/24/25 08:43 Pantoprazole Inj 40 Mg Vial IVP 06/18/25 13:44 40 mg QDAY HUMBERTO Administration Sodium Chloride 1 gm 05/19/25 22:00 05/24/25 05:27 Sodium Chloride 1 Gm Tablet PO 06/18/25 21:59 1 gm TID HUMBERTO Administration Tamsulosin HCl 0.4 mg 05/19/25 13:45 05/24/25 09:10 Tamsulosin Hcl 0.4 Mg Capsule PO 06/18/25 13:44 Not Given QDAY HUMBERTO Plan 79-year-old male with CAD, chronic hyponatremia, PAD, POD#3 s/p right hip cephalomedullary nail and POD#2 s/p right first toe amputation, now with witnessed choking episode likely related to liquid dysphagia, anemia requiring transfusion, and hypomagnesemia, otherwise clinically stable. 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 Plan: * Speech therapy swallow evaluation ordered * Chest X-ray pending to assess for aspiration * Downgrade diet from carb-consistent to dysphagia diet pending speech recommendations * Aspiration precautions # POD#3, Right intertrochanteric femur fracture s/p cephalomedullary nail (05/21/25) Doing well postoperatively; pain well controlled. Alignment confirmed on imaging. 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 No intraoperative complications. Plan: * Antibiotic discontinued * Maintain clean, dry dressing; do not remove unless directed by surgery. * Daily wound checks starting tomorrow. * Pain control PRN. * Weightbearing per general surgery. * Monitor for signs of infection: fever, erythema, purulent drainage. * We will plan for discontinuation of PICC line on discharge #Acute blood loss anemia Hgb 7.3 on arrival. Likely combination of fracture-related blood loss + chronic anemia. Transfused 1 unit and receiving the second unit. 05/21: 2 units of PRBC transufed, Hgb this morning 9.3, no symptoms. 05/22: Hgb dropped overnight after one unit prbc improved to 8.9. 05/24: Hgb 7.7, started one unit prbc to be transfused Plan: * Continue to monitor. * Transfusing one prbc now * CBC daily * Maintain Hgb >8 for surgery * Monitor post-op #Chronic hyponatremia/SIADH, improving Recently discharged on salt tabs, fluid restriction. Na this morning 131 Plan: * Continue home salt tablets * Trend Na daily * Avoid aggressive fluids unless needed for hemodynamics * If worsening, consult nephrology (Dr. Marquez follows outpatient) #Type 2 diabetes mellitus Mild hyperglycemia on arrival (glucose 207). Glucose 138 this morning Plan: * Basal insulin per home regimen * SSI inpatient * Glucose checks qACHS * Hold metformin pre-op #Essential Hypertension BP 120/70 Plan: * Resume home antihypertensives after med rec * Avoid hypotension pre-op, especially with anemia #Preoperative cardiac risk assessment (CAD s/p stent 07/2023) [Cleared] High risk given age, CAD, anemia, PAD, current active infection. No chest pain or active cardiac symptoms today. Requires risk stratification for urgent hip repair. Plan: * Cardiology cleared patient * Baseline ECG, troponin * Continue home cardiac meds once reconciled (except hold anticoagulation if needed per ortho) * Avoid hypotension; maintain Hgb >8 #Peripheral arterial disease Chronic Plan: * Continue PAD management * Monitor distal perfusion post-surgery #BPH Plan: * Continue home tamsulosin/finasteride once reconciled * Monitor for urinary retention Hospital management: Diet: Dysphagia DVT Prophylaxis: Eliquis 2.5 twice daily Bowel regimen: PRN Code Status: Full Code Disposition: MedSurg after hip surgery and toe amputation, awaiting placement ----- Plan discussed with attending physician Dr. Farr and senior resident Dr. Hunter Bartholomew MD PGY-1 Internal Medicine Attending Provider Attestation/Addendum I have seen and examined the patient. I was physically present for the baires portions of the services provided including history, physical exam, diagnosis, treatment plans and orders. I agree with assessment and plan of care as documented by residents. Even though this this note was carefully revised there may still be minor errors in electrician's assistant due to voice recognition software. Shanti Farr MD
--- NOTE | 2025-05-24 12:31 | EVENTNT_ITS ---
Documentation for date of: 05/24/25 Event Note Event Note: Time: 09:00 AM Reason for Rapid Response: Choking episode / concern for aspiration A rapid response was called at approximately 09:00 AM for an episode of choking while eating. Upon arrival to bedside, patient was actively coughing and being suctioned by nursing staff. Patient was alert, protecting his airway, and oxygen saturation remained stable. No loss of consciousness noted. After suctioning, the patient?s symptoms significantly improved. Patient reported that the choking episode occurred after drinking liquids and denied difficulty with solids. Granddaughter later confirmed that similar episodes have occurred at home, predominantly with liquids. Likely oropharyngeal dysphagia with liquid aspiration. Plan: * Patient placed NPO * Chest X-ray ordered to evaluate for aspiration * Speech/swallow evaluation ordered * Aspiration precautions initiated Patient remained hemodynamically stable throughout the event with no need for escalation of care. Will continue close monitoring and follow-up on imaging and speech evaluation. ----- Plan discussed with attending physician Dr. Chika Bartholomew MD PGY-1 Internal Medicine
[2025-05-24] MEDS: Magnesium Sulfate 2 GM Ivpb 2 GM/50 ML BAG IV (17:15)
[2025-05-24 19:22] LABS: Hematocrit 29.4 % (41.0-53.0); Hemoglobin 9.9 g/dL (13.5-16.0)
[2025-05-24] MEDS: DOCUSATE SOD 100 MG CAPSULE PO (20:41)
[2025-05-24] MEDS: ATORVASTATIN CALCIUM 20 MG TABLET 80 MG PO (20:41)
[2025-05-24] MEDS: APIXABAN 2.5 MG TABLET PO (20:41)
[2025-05-25] VITALS (10 sets, daily range): BP systolic 144–164; BP diastolic 68–83; PULSE 69–85; RESP 16–21; TEMP 36.1–36.6; O2SAT 97–99
[2025-05-25] MEDS: SODIUM CHLORIDE 1 GM TABLET PO ×3 (05:32→21:22)
[2025-05-25 06:53] LABS: Basophils # (Auto) 0.0 Thou/mm3 (0.0-0.2); Basophils % (Auto) 0 % (0-2.5); Eosinophils # (Auto) 0.2 Thou/mm3 (0.0-0.5); Eosinophils % (Auto) 3 % (0-10); Hematocrit 28.3 % (41.0-53.0); Hemoglobin 10.0 g/dL (13.5-16.0); Immature Granulocytes Auto 0.12 Thou/mm3 (0.00-0.00); Lymphocytes # (Auto) 0.8 Thou/mm3 (1.0-4.8); Lymphocytes % (Auto) 11 % (10-50); Mean Corpuscular HGB Conc 35.3 g/dl (31.0-37.0); Mean Corpuscular Hemoglobin 30.0 pg (25.0-35.0); Mean Corpuscular Volume 85 fL (80-100); Monocytes # (Auto) 0.5 Thou/mm3 (0.0-0.8); Monocytes % (Auto) 7 % (0-12); Neutrophils # (Auto) 5.5 Thou/mm3 (1.8-7.7); Neutrophils % (Auto) 77 % (37-80); Nucleated Red Blood Cell # 0.00 Thou/mm3 (0.00-0.00); Nucleated Red Blood Cell % 0 /100 WBC (0); Platelet Count 225 Thou/mm3 (140-440); RDW Standard Deviation 55.9 fL (35.1-43.9); Red Blood Count 3.33 Miln/mm3 (4.50-5.90); White Blood Count 7.1 Thou/mm3 (3.8-10.6)
[2025-05-25 07:13] LABS: Alanine Aminotransferase 22 U/L (10-49); Albumin, Serum 2.4 gm/dL (3.4-4.8); Albumin/Globulin Ratio 1.0 (1.2-2.2); Alkaline Phosphatase 88 U/L (46-116); Anion Gap 8 (7-16); Aspartate Amino Transferase 24 U/L (0-34); BUN/Creatinine Ratio 20 Ratio (12-20); Bilirubin,Total 1.4 mg/dL (0.3-1.2); Blood Urea Nitrogen 10 mg/dL (9-23); Calcium 7.4 mg/dL (8.3-10.6); Calcium (Corrected) 8.7 mg/dL (8.5-10.1); Carbon Dioxide 23.3 mMol/L (20.0-31.0); Chloride 97 mMol/L (98-107); Creatinine (Component) 0.5 mg/dL (0.6-1.3); Estimated Creatinine Clearance 92.2 mL/min (>60); Globulin 2.3 gm/dL (2.3-3.5); Glucose 177 mg/dL (74-106); Magnesium 1.6 mg/dL (1.6-2.6); Osmolality,Calculated 260 (275-295); Phosphorous 2.5 mg/dL (2.4-5.1); Potassium 3.8 mMol/L (3.4-5.1); Sodium 128 mMol/L (136-145); Total Protein 4.7 gm/dL (5.7-8.2); eGFR > 60 See Note
[2025-05-25] MEDS: INSULIN LISPRO (AdmeLOG) 1 UNIT/0.01 ML UNIT SC ×4 (07:48→20:20)
[2025-05-25] MEDS: Magnesium Sulfate 4 GM Ivpb 4 GM/50 ML BAG IV (08:10)
[2025-05-25] MEDS: APIXABAN 2.5 MG TABLET PO ×2 (08:11→20:20)
[2025-05-25] MEDS: FINASTERIDE 5 MG TABLET PO (08:11)
[2025-05-25] MEDS: METOPROLOL SUCCINATE XL 25 MG TABCR 37.5 MG PO (08:11)
[2025-05-25] MEDS: MULTIVITAMINS TABLET 1 TAB PO (08:11)
[2025-05-25] MEDS: TAMSULOSIN HCL 0.4 MG CAPSULE PO (08:11)
[2025-05-25] MEDS: CLOPIDOGREL BISULFATE 75 MG TABLET PO (08:11)
[2025-05-25] MEDS: DOCUSATE SOD 100 MG CAPSULE PO ×2 (08:11→20:19)
[2025-05-25] MEDS: SODIUM CHLORIDE 0.9% 1000 ML 1,000 ML 80 ML IV (08:17)
--- NOTE | 2025-05-25 09:17 | ESPR_ITS ---
Documentation for date of: 05/25/25 Subjective Subjective Interval history: Patient seen and examined at bedside, sleeping comfortably. Patient will be discharged today. Patient denies any chest pain shortness of breath and has no other cardiac complaints. Continue Eliquis 2.5 p.o. twice daily along with Plavix. Patient to follow-up with primary containers sales representative Dr. Mcdaniel in 1 week of discharge Exam Vital Signs Temp Pulse Resp BP Pulse Ox O2 Del Method O2 Flow Rate 97.5 F 85 18 164/81 H 99 Room Air 0 05/25/25 08:00 05/25/25 08:11 05/25/25 08:00 05/25/25 08:11 05/25/25 08:00 05/25/25 08:00 05/24/25 17:10 Narrative Exam GENERAL: Elderly male, in no acute distress, laying comfortably on bed HEENT: Normocephalic, atraumatic, extraocular movements intact, pupils equal and reactive to light NECK: Supple, no JVD or bruits. CARDIOVASULAR: RRR, S1 and S2 heard, without murmur, rubs or gallops. LUNGS/CHEST: Clear to auscultation bilaterally. No rails, rhonchi, or wheezing. ABDOMEN: Soft, nontender, with normal bowel sounds. No rebound, rigidity, or guarding. EXTREMITIES: Right foot covered in dressing, appears clean. Right hip dressing clean and dry SKIN: Warm and dry without rashes. NEURO: Alert, awake and oriented x4. Cranial nerves: II through XII grossly intact. normal speech, able to answer questions and follow commands appropriately, strength and sensation normal and equal bilaterally, no focal neurological deficits PSYCHIATRIC: Normal mood and affect. Objective Labs 05/26/25 04:29 05/26/25 04:29 Labs: Laboratory Results - last 24 hr 05/22/25 05/24/25 05/25/25 16:03 18:52 06:25 WBC 7.1 RBC 3.33 L Hgb 9.9 L D 10.0 L Hct 29.4 L 28.3 L MCV 85 MCH 30.0 MCHC 35.3 RDW Std Deviation 55.9 H Plt Count 225 Neut % (Auto) 77 Lymph % (Auto) 11 [place] % (Auto) 7 Eos % (Auto) 3 Baso % (Auto) 0 Neut # (Auto) 5.5 Lymph # (Auto) 0.8 L [place] # (Auto) 0.5 Eos # (Auto) 0.2 Baso # (Auto) 0.0 Immature Gran # (Auto) 0.12 H Absolute Nucleated RBC 0.00 Immature Gran % 2 H Nucleated RBC % 0 Sodium 128 L Potassium 3.8 Chloride 97 L Carbon Dioxide 23.3 Anion Gap 8 BUN 10 Creatinine 0.5 L Estim Creat Clear Calc 92.2 eGFR > 60 BUN/Creatinine Ratio 20 Glucose 177 H Calculated Osmolality 260 L Calcium 7.4 L Corrected Calcium 8.7 Phosphorus 2.5 Magnesium 1.6 Total Bilirubin 1.4 H D AST 24 ALT 22 Alkaline Phosphatase 88 D Total Protein 4.7 L Albumin 2.4 L Globulin 2.3 Albumin/Globulin Ratio 1.0 L Blood Type O Positive Antibody Screen NEGATIVE Crossmatch See Detail Blood Bank Wristband ID Yes Quality Measures Quality Measures VTE prophylaxis Advance care planning discussed with:: patient Assessment & Plan Assessment Current Active Medications: Generic Name Dose Route Start Last Admin Trade Name Freq PRN Reason Stop Dose Admin Acetaminophen 650 mg 05/19/25 13:31 Acetaminophen 325 Mg Tablet PO 06/18/25 13:30 Q6H PRN Fever >100.4 pr pain 1-5 Apixaban 2.5 mg 05/23/25 21:00 05/25/25 08:11 Apixaban 2.5 Mg Tablet PO 06/22/25 20:59 2.5 mg BID HUMBERTO Administration Atorvastatin Calcium 80 mg 05/19/25 21:00 05/24/25 20:41 Atorvastatin Calcium 20 Mg Tablet PO 06/18/25 20:59 80 mg HS HUMBERTO Administration Clopidogrel Bisulfate 75 mg 05/22/25 09:00 05/25/25 08:11 Clopidogrel Bisulfate 75 Mg Tablet PO 06/21/25 08:59 75 mg DAILY HUMBERTO Administration Dextrose 25 ml 05/19/25 15:25 Dextrose 50%-Water Inj 50 Ml Syringe IV 06/18/25 15:24 Q15MIN PRN BG 50-70 responsive npo pt Dextrose 50 ml 05/19/25 15:25 Dextrose 50%-Water Inj 50 Ml Syringe IV 06/18/25 15:24 Q15MIN PRN BG <50 OR BG <70 & pt unresponsive Docusate Sodium 100 mg 05/21/25 21:00 05/25/25 08:11 Docusate Sod 100 Mg Capsule PO 06/20/25 20:59 100 mg BID HUMBERTO Administration Protocol Finasteride 5 mg 05/19/25 13:45 05/25/25 08:11 Finasteride 5 Mg Tablet PO 06/18/25 13:44 5 mg QDAY HUMBERTO Administration Glucagon 1 mg 05/19/25 15:25 Glucagon Inj 1 Mg Vial IM Q15MIN PRN BG <70, and no IV access Magnesium Sulfate 4 gm in 50 mls @ 12.5 mls/hr 05/25/25 07:31 05/25/25 08:10 Magnesium Sulfate Ivpb IV 05/25/25 11:30 12.5 mls/hr X1 ONE Administration Sodium Chloride 1,000 mls @ 80 mls/hr 05/25/25 08:11 05/25/25 08:17 Ns IV 06/24/25 08:10 80 mls/hr .[id number] HUMBERTO Administration Insulin Human Lispro 0 unit 05/23/25 07:30 05/25/25 07:48 Insulin Lispro (Admelog) 1 Unit/0.01 Ml Unit SC 06/22/25 07:29 2 unit ACHS HUMBERTO Administration Protocol Metoprolol Succinate 37.5 mg 05/20/25 09:00 05/25/25 08:11 Metoprolol Succinate Xl 25 Mg Tabcr PO 06/19/25 08:59 37.5 mg DAILY HUMBERTO Administration Morphine Sulfate 2 mg 05/20/25 16:39 Morphine Sulf Inj 4 Mg/Ml Vial IVP 05/25/25 16:38 Q4HR PRN pain 7-10 Multivitamins 1 tab 05/22/25 09:00 05/25/25 08:11 Multivitamins Tablet PO 06/21/25 08:59 1 tab QAM HUMBERTO Administration Ondansetron HCl 4 mg 05/19/25 13:31 Ondansetron Inj 2 Mg/Ml Inj 2 Ml IVP 06/18/25 13:30 Q6H PRN NAUSEA OR VOMITING Protocol Pantoprazole Sodium 40 mg 05/19/25 13:45 05/25/25 08:11 Pantoprazole Inj 40 Mg Vial IVP 06/18/25 13:44 40 mg QDAY HUMBERTO Administration Sodium Chloride 1 gm 05/19/25 22:00 05/25/25 05:32 Sodium Chloride 1 Gm Tablet PO 06/18/25 21:59 1 gm TID HUMBERTO Administration Tamsulosin HCl 0.4 mg 05/19/25 13:45 05/25/25 08:11 Tamsulosin Hcl 0.4 Mg Capsule PO 06/18/25 13:44 0.4 mg QDAY HUMBERTO Administration Plan Assessment and plan: Summary: Mr. Scott is a 79-year-old male with past medical history of hypertension, hyperlipidemia, type 2 diabetes mellitus, CAD status post coronary stent July 2023, peripheral arterial disease h/o fem-pop bypass graft surgery, BPH, SIADH, chronic hyponatremia, history of GI bleed (internal hemorrhoids) and osteomyelitis hallux of right distal hallux who presented to [facility] emergency department on 05/19/2025 with a chief complaint of mechanical ground-level fall, patient was found to have displaced intertrochanteric right hip fracture. Cardiology consulted for pre-op clearance. #Pre-op cardiac risk assessment #CAD status post PCI July 2023 Presented with ground-level mechanical fall, found to have displaced intertrochanteric right hip fracture in the ER confirmed on imaging. Orthopedics consulted, plan to undergo surgery in AM. Patient denies any chest pain/pressure, palpitations, dizziness, shortness of breath, leg swelling, presyncope and syncopal symptoms. Cardiology consulted for preop clearance clearance considering history of CAD. Cardiac catheterization report from July 2023: Patient underwent successful PCI right coronary artery posterior descending branch, 95% preprocedure stenosis was noted in the vessel. Additional stent was placed in PL branch of RCA. Cardiac cath findings August 2024: Widely patent stent involving the right coronary artery PDA, PL branches. Moderate disease of distal left anterior descending artery to be managed medically. Calcification of LAD, left main and circumflex arteries. No significant obstructive disease. Normal left ventricular function. Patient has been compliant on medication regimen currently on Plavix 75 mg and atorvastatin 80 mg along with metoprolol succinate 37.5 mg daily. Patient is established with containers sales representative Dr. Dalila Mcdaniel and follows him outpatient. TSH 04/29/2025 1.48, lipid panel 05/01/2025 triglyceride 58, cholesterol 64, LDL 17, HDL 35, cholesterol/HDL ratio 1.8, A1c 04/29/2025 6.7 Patient's previous echo from August 2024 normal LV function LVEF 60%, technically difficult study. EKG obtained today shows sinus rhythm, frequent PVCs, some T wave inversion noted on V1?V3 Revised cardiac risk index score?2 points HEART score for Major Cardiac events?6 points, risk of mace 12-16% METS less than 4 Echocardiogram obtained 05/19/2025 shows 1. Left ventricle size is normal and systolic function is normal. Estimated ejection fraction is 55-60%. There is indeterminate diastolic function. 2. Right ventricle chamber size is normal and systolic function is normal. Estimated RVSP is 18 mmHg. 3. There is trace mitral valve regurgitation. 4. There is trace tricuspid valve regurgitation. 5. Not well visualized IVC with estimated RA pressure 8 mmHg. Recommendations: ? Agree with holding Plavix prior to surgery as patient's stents were placed more than 1 year ago. ? Based on patient's cardiac risk, patient is at acceptable but mildly elevated cardiac risk for surgery. No further cardiac workup needed as patient recently had angiogram earlier this year along with echo now. ? 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 Keep potassium greater than 4 and magnesium greater than 2 at all times. ? Recommend transfusing pRBC prn, keep hemoglobin greater than 8, anemia workup outpatient ? Continue Eliquis 2.5mg BID for DVT prophylaxis by primrary team, continue both Plavix and Eliquis as patient does have h/o fem-pop bypass graft surgery. ? Consider Switching to Aspirin if concern of increased bleeding risk. ? Recommend patient follow-up with primary containers sales representative Dr. Mcdaniel within 1 week of discharge. #Hypertension #Hyperlipidemia #Peripheral arterial disease Patient on metoprolol 37.5 mg daily, atorvastatin 80 mg at bedtime. ?Continue atorvastatin and metoprolol home dose #Type 2 diabetes mellitus #BPH #SIADH #Chronic hyponatremia #History of GI bleed #Osteomyelitis hallux of right distal hallux #Constipation #Hypomagnesemia Management as per primary team. Thank you for the consult and allowing to participate in the care of the patient. Cardiology will continue to follow. Case discussed with Attending Physician Dr. Nathan Daniel MD Internal Medicine PGY-2 Disclaimer: This note was dictated by speech recognition. Minor errors in waste machine operator may be present due to voice recognition software. Attending Provider Attestation/Addendum I have personally seen and examined the patient separately on the above date of service and discussed the plan of care with the resident. I reviewed the resident Dr. Adina Daniel consultation progress note and agree with the resident findings and plan in the note above and have also edited the documentation to reflect my findings and plan. Nathan Larios M.D. Interventional Cardiology
[2025-05-25] MEDS: MORPHINE SULF INJ 4 MG/ML VIAL 2 MG IVP (09:37)
--- NOTE | 2025-05-25 10:00 | PD.RESPRO ---
Documentation for date of: 05/25/25 Exam Vital Signs Temp Pulse Resp BP Pulse Ox O2 Del Method O2 Flow Rate 97.5 F 85 18 164/81 H 99 Room Air 0 05/25/25 08:00 05/25/25 08:11 05/25/25 08:00 05/25/25 08:11 05/25/25 08:00 05/25/25 08:00 05/24/25 17:10 Objective Labs 05/25/25 06:25 05/25/25 06:25 Labs: Laboratory Results - last 24 hr 05/22/25 05/24/25 05/25/25 16:03 18:52 06:25 WBC 7.1 RBC 3.33 L Hgb 9.9 L D 10.0 L Hct 29.4 L 28.3 L MCV 85 MCH 30.0 MCHC 35.3 RDW Std Deviation 55.9 H Plt Count 225 Neut % (Auto) 77 Lymph % (Auto) 11 [place] % (Auto) 7 Eos % (Auto) 3 Baso % (Auto) 0 Neut # (Auto) 5.5 Lymph # (Auto) 0.8 L [place] # (Auto) 0.5 Eos # (Auto) 0.2 Baso # (Auto) 0.0 Immature Gran # (Auto) 0.12 H Absolute Nucleated RBC 0.00 Immature Gran % 2 H Nucleated RBC % 0 Sodium 128 L Potassium 3.8 Chloride 97 L Carbon Dioxide 23.3 Anion Gap 8 BUN 10 Creatinine 0.5 L Estim Creat Clear Calc 92.2 eGFR > 60 BUN/Creatinine Ratio 20 Glucose 177 H Calculated Osmolality 260 L Calcium 7.4 L Corrected Calcium 8.7 Phosphorus 2.5 Magnesium 1.6 Total Bilirubin 1.4 H D AST 24 ALT 22 Alkaline Phosphatase 88 D Total Protein 4.7 L Albumin 2.4 L Globulin 2.3 Albumin/Globulin Ratio 1.0 L Blood Type O Positive Antibody Screen NEGATIVE Crossmatch See Detail Blood Bank Wristband ID Yes Quality Measures Quality Measures VTE prophylaxis Assessment & Plan Assessment Current Active Medications: Generic Name Dose Route Start Last Admin Trade Name Freq PRN Reason Stop Dose Admin Acetaminophen 650 mg 05/19/25 13:31 Acetaminophen 325 Mg Tablet PO 06/18/25 13:30 Q6H PRN Fever >100.4 pr pain 1-5 Apixaban 2.5 mg 05/23/25 21:00 05/25/25 08:11 Apixaban 2.5 Mg Tablet PO 06/22/25 20:59 2.5 mg BID HUMBERTO Administration Atorvastatin Calcium 80 mg 05/19/25 21:00 05/24/25 20:41 Atorvastatin Calcium 20 Mg Tablet PO 06/18/25 20:59 80 mg HS HUMBERTO Administration Clopidogrel Bisulfate 75 mg 05/22/25 09:00 05/25/25 08:11 Clopidogrel Bisulfate 75 Mg Tablet PO 06/21/25 08:59 75 mg DAILY HUMBERTO Administration Dextrose 25 ml 05/19/25 15:25 Dextrose 50%-Water Inj 50 Ml Syringe IV 06/18/25 15:24 Q15MIN PRN BG 50-70 responsive npo pt Dextrose 50 ml 05/19/25 15:25 Dextrose 50%-Water Inj 50 Ml Syringe IV 06/18/25 15:24 Q15MIN PRN BG <50 OR BG <70 & pt unresponsive Docusate Sodium 100 mg 05/21/25 21:00 05/25/25 08:11 Docusate Sod 100 Mg Capsule PO 06/20/25 20:59 100 mg BID HUMBERTO Administration Protocol Finasteride 5 mg 05/19/25 13:45 05/25/25 08:11 Finasteride 5 Mg Tablet PO 06/18/25 13:44 5 mg QDAY HUMBERTO Administration Glucagon 1 mg 05/19/25 15:25 Glucagon Inj 1 Mg Vial IM Q15MIN PRN BG <70, and no IV access Magnesium Sulfate 4 gm in 50 mls @ 12.5 mls/hr 05/25/25 07:31 05/25/25 08:10 Magnesium Sulfate Ivpb IV 05/25/25 11:30 12.5 mls/hr X1 ONE Administration Sodium Chloride 1,000 mls @ 80 mls/hr 05/25/25 08:11 05/25/25 08:17 Ns IV 06/24/25 08:10 80 mls/hr .[id number] HUMBERTO Administration Insulin Human Lispro 0 unit 05/23/25 07:30 05/25/25 07:48 Insulin Lispro (Admelog) 1 Unit/0.01 Ml Unit SC 06/22/25 07:29 2 unit ACHS HUMBERTO Administration Protocol Metoprolol Succinate 37.5 mg 05/20/25 09:00 05/25/25 08:11 Metoprolol Succinate Xl 25 Mg Tabcr PO 06/19/25 08:59 37.5 mg DAILY HUMBERTO Administration Morphine Sulfate 2 mg 05/20/25 16:39 05/25/25 09:37 Morphine Sulf Inj 4 Mg/Ml Vial IVP 05/25/25 16:38 2 mg Q4HR PRN Administration pain 7-10 Multivitamins 1 tab 05/22/25 09:00 05/25/25 08:11 Multivitamins Tablet PO 06/21/25 08:59 1 tab QAM HUMBERTO Administration Ondansetron HCl 4 mg 05/19/25 13:31 Ondansetron Inj 2 Mg/Ml Inj 2 Ml IVP 06/18/25 13:30 Q6H PRN NAUSEA OR VOMITING Protocol Pantoprazole Sodium 40 mg 05/19/25 13:45 05/25/25 08:11 Pantoprazole Inj 40 Mg Vial IVP 06/18/25 13:44 40 mg QDAY HUMBERTO Administration Sodium Chloride 1 gm 05/19/25 22:00 05/25/25 05:32 Sodium Chloride 1 Gm Tablet PO 06/18/25 21:59 1 gm TID HUMBERTO Administration Tamsulosin HCl 0.4 mg 05/19/25 13:45 05/25/25 08:11 Tamsulosin Hcl 0.4 Mg Capsule PO 06/18/25 13:44 0.4 mg QDAY HUMBERTO Administration
--- NOTE | 2025-05-25 10:32 | ESDS_ITS ---
Planned Discharge Date 05/25/25 DS: Providers Provider Date of admission: 05/19/25 11:20 Primary care physician: Narciso Mancini Admitting Provider: Donis Bains MD Attending Provider on Admission: Emil Barton MD Consults: 05/19/25 10:13 Consult to Orthopedic Stat Comment: right hip fracture Consulting Provider: Gavino Malik 05/19/25 11:35 Referral Speech Therapy Stat Comment: SWALLOW EVALUATION COUGHING WITH PUDDING 05/19/25 12:00 Consult to Cardiology Routine Comment: Consulting Provider: Nathan Larios Instructions: Needs cardiac clearance for hip fracture surgery 05/19/25 16:08 Referral Wound Care Routine Comment: 05/19/25 16:20 Consult to General Surgery Stat Comment: Consulting Provider: Jenny Quispe 05/19/25 16:54 Referral Nutritional Services Routine Comment: Wounds 05/20/25 08:00 Referral Physical Therapy Routine Comment: Physician Instructions: 05/24/25 08:34 Referral Speech Therapy Urgent Comment: Attending Provider on DC: Shanti Farr MD Discharging Provider: Sindy Bartholomew MD DS: Diagnosis Problem List Completed Was Problem List Reviewed/Reconciled?: Yes Hospital Course Hospital Course Hospital course: 79-year-old male with a past medical history significant for coronary artery disease status post PCI in July 2023, chronic hyponatremia/SIADH, peripheral arterial disease, type 2 diabetes mellitus, hypertension, BPH, and chronic osteomyelitis of the right great toe, who presented on 05/19/2025 after a mechanical ground-level fall at home. Imaging in the emergency department revealed a displaced intertrochanteric fracture of the right femur. Orthopedic surgery was consulted, and the patient was admitted to the medicine service for medical optimization and cardiac clearance prior to operative intervention. Cardiology evaluated the patient preoperatively given his significant cardiac history and determined that he was at acceptable but mildly elevated cardiac risk for surgery. Echocardiogram demonstrated preserved left ventricular systolic function with an ejection fraction of 55?60% and no significant valvular disease. Plavix was held perioperatively given that coronary stents were placed over one year prior. The patient underwent right hip cephalomedullary nail fixation on 05/21/[address] Malik. Postoperative imaging demonstrated satisfactory alignment, and the patient tolerated the procedure without complications. He was made weightbearing as tolerated and participated in physical therapy. During hospitalization, the patient was noted to have [id number] anemia related to traumatic blood loss from his fracture and surgical interventions. He required a total of four units of packed red blood cells to maintain hemoglobin above 8 given his underlying coronary artery disease. Hemoglobin stabilized prior to discharge. The patient also had known chronic osteomyelitis of the right great toe, which was noted by wound care to be worsening compared to prior admission despite ongoing intravenous antibiotics. General surgery was consulted, and after discussion of risks and benefits, the patient underwent right first toe amputation on 05/22/2025. The procedure was uncomplicated, and the patient recovered well postoperatively with stable wound appearance. The hospital course was further complicated by a choking episode on 05/24/2025 for which a rapid response was called. The patient improved with suctioning and coughing and remained hemodynamically stable. Family reported similar episodes at home, particularly with liquids. Chest X-ray was obtained, and speech therapy was consulted for swallow evaluation and cleared patient with dysphagia diet. The patient was briefly placed NPO, after which he was advanced back to diet without further choking episodes. The patient?s chronic hyponatremia was monitored throughout the admission. Sodium levels fluctuated but were managed with salt tablets and intravenous fluids when needed, with close laboratory monitoring. Hypomagnesemia was intermittently noted and corrected with intravenous supplementation. At the time of discharge, the patient was hemodynamically stable, tolerating oral intake without difficulty, and had stable postoperative surgical sites. He was deemed medically stable for discharge with appropriate outpatient follow-up to a SNF. 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 Patient was able to explain back to physician and nursing staff how to take their medications. Patient expressed understanding with instructions. Follow up with your orthopedic surgeon and general surgeon within 2 weeks of discharge. New Medications: ? Continue taking ELIQUIS 2.5mg twice daily for 14 more days ? Continue taking LOSARTAN 50 mg daily for high blood pressure ? Continue taking TYLENOL as prescribed below for pain or fever ? Continue taking NORCO as prescribed below for severe pain Continue to take the rest of your medications as prescribed by your primary care physician. Patient has been explained that should any symptoms recur or worsen patient is instructed to return to the Emergency Department. ----- Plan discussed with attending physician Dr. Chika Bartholomew MD PGY-1 Internal Medicine Time Spent with Patient Time attestation: Total time spent providing and/or coordinating discharge services: 40 minutes Time spent: Greater than 30 minutes Exam Vital Signs Temp Pulse Resp BP Pulse Ox O2 Del Method O2 Flow Rate 97.5 F 85 18 164/81 H 99 Room Air 0 05/25/25 08:00 05/25/25 08:11 05/25/25 08:00 05/25/25 08:11 05/25/25 08:00 05/25/25 08:00 05/24/25 17:10 Narrative Exam GENERAL: Elderly male, in no acute distress, laying comfortably on bed HEENT: Normocephalic, atraumatic, extraocular movements intact, pupils equal and reactive to light NECK: Supple, no JVD or bruits. CARDIOVASULAR: RRR, S1 and S2 heard, without murmur, rubs or gallops. LUNGS/CHEST: Clear to auscultation bilaterally. No rails, rhonchi, or wheezing. ABDOMEN: Soft, nontender, with normal bowel sounds. No rebound, rigidity, or guarding. EXTREMITIES: Right foot covered in dressing, appears clean. Right hip dressing clean and dry SKIN: Warm and dry without rashes. NEURO: Alert, awake and oriented x4. Cranial nerves: II through XII grossly intact. normal speech, able to answer questions and follow commands appropriately, strength and sensation normal and equal bilaterally, no focal neurological deficits PSYCHIATRIC: Normal mood and affect. Discharge Plan Plan Patient Disposition[facility] ([facility]) Patient condition on transfer: Stable Care Plan Goals: Follow up with primary care physician within 1 week of discharge Instructions have been explained to the patient with regards to their medications and how to take them. Patient was able to explain back to physician and nursing staff how to take their medications. Patient expressed understanding with instructions. Follow up with your orthopedic surgeon and general surgeon within 2 weeks of discharge. New Medications: ? Continue taking ELIQUIS 2.5mg twie daily for 14 more days ? Continue taking LOSARTAN 50 mg daily for high blood pressure ? Continue taking TYLENOL as prescribed below for pain or fever ? Continue taking NORCO as prescribed below for severe pain Continue to take the rest of your medications as prescribed by your primary care physician. Patient has been explained that should any symptoms recur or worsen patient is instructed to return to the Emergency Department. Prescriptions/Referrals Prescriptions/Med Rec: New Eliquis 2.5 mg tablet 2.5 mg PO BID 13 Days Qty: 26 0RF losartan 50 mg tablet 50 mg PO QDAY Qty: 30 0RF acetaminophen [Tylenol 8 Hour] 650 mg tablet extended release 650 mg PO Q6HR PRN (Reason: fever or mild pain) 30 Days Qty: 120 0RF hydrocodone-acetaminophen 5-325 mg tablet 1 tab PO Q6HR MDD max 4 tablets in 24 hours PRN (Reason: sever pain) 7 Days Qty: 28 0RF Continued finasteride 5 mg tablet 5 mg PO QDAY Patient Comments: TAKE ONE TABLET BY MOUTH EVERY DAY FOR PROSTATE sodium chloride 1,000 mg tablet,soluble 1,000 mg PO TID 30 Days Qty: 90 0RF Patient Comments: TAKE ONE TABLET BY MOUTH TWICE DAILY multivitamin Tablet 1 tab PO QAM Patient Comments: TAKE ONE TABLET BY MOUTH EVERY DAY IN THE MORNING metformin 1,000 mg tablet 1 tab PO BID Patient Comments: TAKE ONE TABLET BY MOUTH TWICE DAILY docusate sodium 100 mg capsule 1 cap PO BID Patient Comments: TAKE ONE CAPSULE BY MOUTH TWICE DAILY FOR CONSTIPATION clopidogrel 75 mg tablet 75 mg PO DAILY Patient Comments: TAKE ONE TABLET BY MOUTH EVERY DAY FOR CIRCULATION atorvastatin 80 mg tablet 80 mg PO DAILY Patient Comments: TAKE ONE TABLET BY MOUTH EVERY DAY FOR CHOLESTEROL metoprolol succinate 25 mg tablet extended release 24 hr 37.5 mg PO DAILY Patient Comments: TAKE 1 AND 1/2 TABLETS BY MOUTH EVERY DAY FOR BLOOD PRESSURE Jardiance 10 mg tablet 10 mg PO QDAY Patient Comments: TAKE ONE TABLET BY MOUTH EVERY DAY FOR DIABETES Discontinued tamsulosin [Flomax] 0.4 MG capsule,extended release 24hr 0.4 mg PO BID Qty: 0 ceftriaxone 2 gram recon soln 2 g IV QDAY 30 Days doxycycline hyclate 100 mg capsule 100 mg PO BID 30 Days Qty: 60 0RF Referrals: Narciso Mancini [Primary Care Provider] Jenny Quispe MD [Physician, General Surgery] Gavino Malik MD [Physician, Orthopedics] Patient/Caregiver Discharge Instructions Education Materials: Preventing Surgical Site Infections Print Language: Armenian Stand Alone Forms: Isha Award Info., Patient Portal Info Letter Discharge Order Discharge Orders: Discharge (Routine); Ordered 05/25/25 Ordered By: Caro Henderson Quality Discharge Quality Measures VTE prophylaxis MD Attestestation MD Attestation I have seen and examined the patient. I was physically present for the baires portions of the services provided including history, physical exam, diagnosis, treatment plans and orders. I agree with assessment and plan of care as documented by residents. Even though this this note was carefully revised there may still be minor errors in practice nurse due to voice recognition software. Shanti Farr MD
[2025-05-25] MEDS: LOSARTAN POTASSIUM 25 MG TABLET 50 MG PO (12:09)
[2025-05-25 14:09] LABS: Albumin, Serum 2.6 gm/dL (3.4-4.8); Anion Gap 7 (7-16); BUN/Creatinine Ratio 15 Ratio (12-20); Blood Urea Nitrogen 9 mg/dL (9-23); Calcium 7.4 mg/dL (8.3-10.6); Calcium (Corrected) 8.5 mg/dL (8.5-10.1); Carbon Dioxide 25.9 mMol/L (20.0-31.0); Chloride 96 mMol/L (98-107); Creatinine (Component) 0.6 mg/dL (0.6-1.3); Estimated Creatinine Clearance 76.9 mL/min (>60); Glucose 198 mg/dL (74-106); Osmolality,Calculated 263 (275-295); Phosphorous 2.6 mg/dL (2.4-5.1); Potassium 3.4 mMol/L (3.4-5.1); Sodium 129 mMol/L (136-145); eGFR > 60 See Note
--- NOTE | 2025-05-25 14:47 | PC.SS ---
SS was informed by RNCarmelina pt dtr decided on [facility]. SS reached out to [facility] who can accept pt today. Pt is pending voiding trial.
--- NOTE | 2025-05-25 15:28 | PC.SS ---
Transport set up through [id number], [place] requested. Pending transport assignment. SS requested ETA 1900.
--- NOTE | 2025-05-25 16:03 | PC.SS ---
Addendum entered by Cathie Bangura 05/26/25 12:53: ETA set with [facility] for 1600 Addendum entered by Cathie Bangura 05/26/25 12:51: Pt DC plan for today, SS spoke to pt dtr Colette [phone] to confirm DC plan as pt has expressed wanting to return home, in which Colette informed SS that is not an option at this time as pt beeds to recover from SX first. Original Note: Rounding: Pt ready for DC, pending voiding trial. Pt aligned to go to who is ready to accept pt. Transport set up for 1899, SS was informed pt wishes to go home. Dtr to come speak to pt. If pt goes home, SS informed [facility] to cancel transport.
[2025-05-25] MEDS: ACETAMINOPHEN 325 MG TABLET 650 MG PO (16:50)
--- NOTE | 2025-05-25 18:18 | PC.NURSE ---
Called and spoke with Dr. Brown and informed that pt has not voided after fairchild cath removed at 1500. Per MD hold the discharge for now
--- NOTE | 2025-05-25 18:20 | PC.NURSE ---
bladder scanned pt 241 ml
[2025-05-25] MEDS: ATORVASTATIN CALCIUM 20 MG TABLET 80 MG PO (20:19)
[2025-05-26] VITALS (9 sets, daily range): BP systolic 125–156; BP diastolic 73–91; PULSE 62–84; RESP 16–18; TEMP 36.1–36.6; O2SAT 94–99
[2025-05-26] MEDS: SODIUM CHLORIDE 1 GM TABLET PO ×2 (05:16→14:24)
[2025-05-26] MEDS: SODIUM CHLORIDE 0.9% 1000 ML 1,000 ML 80 ML IV (05:23)
[2025-05-26 06:39] LABS: Basophils # (Auto) 0.0 Thou/mm3 (0.0-0.2); Basophils % (Auto) 0 % (0-2.5); Eosinophils # (Auto) 0.2 Thou/mm3 (0.0-0.5); Eosinophils % (Auto) 2 % (0-10); Hematocrit 28.2 % (41.0-53.0); Hemoglobin 9.5 g/dL (13.5-16.0); Immature Granulocytes Auto 0.08 Thou/mm3 (0.00-0.00); Lymphocytes # (Auto) 0.8 Thou/mm3 (1.0-4.8); Lymphocytes % (Auto) 9 % (10-50); Mean Corpuscular HGB Conc 33.7 g/dl (31.0-37.0); Mean Corpuscular Hemoglobin 29.5 pg (25.0-35.0); Mean Corpuscular Volume 88 fL (80-100); Monocytes # (Auto) 0.5 Thou/mm3 (0.0-0.8); Monocytes % (Auto) 5 % (0-12); Neutrophils # (Auto) 7.5 Thou/mm3 (1.8-7.7); Neutrophils % (Auto) 83 % (37-80); Nucleated Red Blood Cell # 0.00 Thou/mm3 (0.00-0.00); Nucleated Red Blood Cell % 0 /100 WBC (0); Platelet Count 236 Thou/mm3 (140-440); RDW Standard Deviation 56.1 fL (35.1-43.9); Red Blood Count 3.22 Miln/mm3 (4.50-5.90); White Blood Count 9.1 Thou/mm3 (3.8-10.6)
[2025-05-26 07:25] LABS: Alanine Aminotransferase 18 U/L (10-49); Albumin, Serum 2.3 gm/dL (3.4-4.8); Albumin/Globulin Ratio 1.2 (1.2-2.2); Alkaline Phosphatase 95 U/L (46-116); Anion Gap 8 (7-16); Aspartate Amino Transferase 21 U/L (0-34); BUN/Creatinine Ratio 16 Ratio (12-20); Bilirubin,Total 1.3 mg/dL (0.3-1.2); Blood Urea Nitrogen 8 mg/dL (9-23); Calcium 7.1 mg/dL (8.3-10.6); Calcium (Corrected) 8.5 mg/dL (8.5-10.1); Carbon Dioxide 24.0 mMol/L (20.0-31.0); Chloride 97 mMol/L (98-107); Creatinine (Component) 0.5 mg/dL (0.6-1.3); Estimated Creatinine Clearance 92.2 mL/min (>60); Globulin 2.0 gm/dL (2.3-3.5); Glucose 173 mg/dL (74-106); Magnesium 1.4 mg/dL (1.6-2.6); Osmolality,Calculated 261 (275-295); Phosphorous 2.6 mg/dL (2.4-5.1); Potassium 4.0 mMol/L (3.4-5.1); Sodium 129 mMol/L (136-145); Total Protein 4.3 gm/dL (5.7-8.2); eGFR > 60 See Note
--- NOTE | 2025-05-26 08:03 | PD.RESPRO ---
Documentation for date of: 05/26/25 Subjective Subjective Interval history: Patient seen and examined at bedside, discharge held yesterday secondary to urinary retention, fairchild placed today by primrary team. Patient denies any chest pain shortness of breath and has no other cardiac complaints. Continue Eliquis 2.5 p.o. twice daily along with Plavix. Patient to follow-up with primary dermatology physician Dr. Mcdaniel in 1 week of discharge Exam Vital Signs Temp Pulse Resp BP Pulse Ox O2 Del Method O2 Flow Rate 97.8 F 72 18 125/73 98 Room Air 0 05/26/25 04:00 05/26/25 05:03 05/26/25 04:00 05/26/25 04:00 05/26/25 04:00 05/26/25 04:00 05/24/25 17:10 Narrative Exam GENERAL: Elderly male, in no acute distress, laying comfortably on bed HEENT: Normocephalic, atraumatic, extraocular movements intact, pupils equal and reactive to light NECK: Supple, no JVD or bruits. CARDIOVASULAR: RRR, S1 and S2 heard, without murmur, rubs or gallops. LUNGS/CHEST: Clear to auscultation bilaterally. No rails, rhonchi, or wheezing. ABDOMEN: Soft, nontender, with normal bowel sounds. No rebound, rigidity, or guarding. EXTREMITIES: Right foot covered in dressing, appears clean. Right hip dressing clean and dry SKIN: Warm and dry without rashes. NEURO: Alert, awake and oriented x4. Cranial nerves: II through XII grossly intact. normal speech, able to answer questions and follow commands appropriately, strength and sensation normal and equal bilaterally, no focal neurological deficits PSYCHIATRIC: Normal mood and affect. Objective Labs 05/26/25 04:29 05/26/25 04:29 Labs: Laboratory Results - last 24 hr 05/22/25 05/25/25 05/26/25 16:03 13:24 04:29 WBC 9.1 RBC 3.22 L Hgb 9.5 L Hct 28.2 L MCV 88 MCH 29.5 MCHC 33.7 RDW Std Deviation 56.1 H Plt Count 236 Neut % (Auto) 83 H Lymph % (Auto) 9 L Lincoln % (Auto) 5 Eos % (Auto) 2 Baso % (Auto) 0 Neut # (Auto) 7.5 Lymph # (Auto) 0.8 L Lincoln # (Auto) 0.5 Eos # (Auto) 0.2 Baso # (Auto) 0.0 Immature Gran # (Auto) 0.08 H Absolute Nucleated RBC 0.00 Immature Gran % 1 H Nucleated RBC % 0 Sodium 129 L 129 L Potassium 3.4 4.0 D Chloride 96 L 97 L Carbon Dioxide 25.9 24.0 Anion Gap 7 8 BUN 9 8 L Creatinine 0.6 0.5 L Estim Creat Clear Calc 76.9 92.2 eGFR > 60 > 60 BUN/Creatinine Ratio 15 16 Glucose 198 H 173 H Calculated Osmolality 263 L 261 L Calcium 7.4 L 7.1 L Corrected Calcium 8.5 8.5 Phosphorus 2.6 2.6 Magnesium 1.4 L Total Bilirubin 1.3 H AST 21 ALT 18 Alkaline Phosphatase 95 Total Protein 4.3 L Albumin 2.6 L 2.3 L Globulin 2.0 L Albumin/Globulin Ratio 1.2 Crossmatch See Detail Quality Measures Quality Measures VTE prophylaxis Advance care planning discussed with:: patient Assessment & Plan Assessment Current Active Medications: Generic Name Dose Route Start Last Admin Trade Name Freq PRN Reason Stop Dose Admin Acetaminophen 650 mg 05/19/25 13:31 05/25/25 16:50 Acetaminophen 325 Mg Tablet PO 06/18/25 13:30 650 mg Q6H PRN Administration Fever >100.4 pr pain 1-5 Apixaban 2.5 mg 05/23/25 21:00 05/25/25 20:20 Apixaban 2.5 Mg Tablet PO 06/22/25 20:59 2.5 mg BID HUMBERTO Administration Atorvastatin Calcium 80 mg 05/19/25 21:00 05/25/25 20:19 Atorvastatin Calcium 20 Mg Tablet PO 06/18/25 20:59 80 mg HS HUMBERTO Administration Clopidogrel Bisulfate 75 mg 05/22/25 09:00 05/25/25 08:11 Clopidogrel Bisulfate 75 Mg Tablet PO 06/21/25 08:59 75 mg DAILY HUMBERTO Administration Dextrose 25 ml 05/19/25 15:25 Dextrose 50%-Water Inj 50 Ml Syringe IV 06/18/25 15:24 Q15MIN PRN BG 50-70 responsive npo pt Dextrose 50 ml 05/19/25 15:25 Dextrose 50%-Water Inj 50 Ml Syringe IV 06/18/25 15:24 Q15MIN PRN BG <50 OR BG <70 & pt unresponsive Docusate Sodium 100 mg 05/21/25 21:00 05/25/25 20:19 Docusate Sod 100 Mg Capsule PO 06/20/25 20:59 100 mg BID HUMBERTO Administration Protocol Finasteride 5 mg 05/19/25 13:45 05/25/25 08:11 Finasteride 5 Mg Tablet PO 06/18/25 13:44 5 mg QDAY HUMBERTO Administration Glucagon 1 mg 05/19/25 15:25 Glucagon Inj 1 Mg Vial IM Q15MIN PRN BG <70, and no IV access Sodium Chloride 1,000 mls @ 80 mls/hr 05/25/25 08:11 05/26/25 05:23 Ns IV 06/24/25 08:10 80 mls/hr .[id number] HUMBERTO Administration Magnesium Sulfate 2 gm in 50 mls @ 25 mls/hr 05/26/25 08:01 Magnesium Sulfate Ivpb IV 05/26/25 10:00 X1 ONE Insulin Human Lispro 0 unit 05/23/25 07:30 05/26/25 07:26 Insulin Lispro (Admelog) 1 Unit/0.01 Ml Unit SC 06/22/25 07:29 Not Given ACHS HUMBERTO Protocol Losartan Potassium 50 mg 05/25/25 10:30 05/25/25 12:09 Losartan Potassium 25 Mg Tablet PO 06/24/25 10:29 50 mg QDAY HUMBERTO Administration Metoprolol Succinate 37.5 mg 05/20/25 09:00 05/25/25 08:11 Metoprolol Succinate Xl 25 Mg Tabcr PO 06/19/25 08:59 37.5 mg DAILY HUMBERTO Administration Multivitamins 1 tab 05/22/25 09:00 05/25/25 08:11 Multivitamins Tablet PO 06/21/25 08:59 1 tab QAM HUMBERTO Administration Ondansetron HCl 4 mg 05/19/25 13:31 Ondansetron Inj 2 Mg/Ml Inj 2 Ml IVP 06/18/25 13:30 Q6H PRN NAUSEA OR VOMITING Protocol Pantoprazole Sodium 40 mg 05/19/25 13:45 05/25/25 08:11 Pantoprazole Inj 40 Mg Vial IVP 06/18/25 13:44 40 mg QDAY HUMBERTO Administration Sodium Chloride 1 gm 05/19/25 22:00 05/26/25 05:16 Sodium Chloride 1 Gm Tablet PO 06/18/25 21:59 1 gm TID HUMBERTO Administration Tamsulosin HCl 0.4 mg 05/19/25 13:45 05/25/25 08:11 Tamsulosin Hcl 0.4 Mg Capsule PO 06/18/25 13:44 0.4 mg QDAY HUMBERTO Administration Plan Assessment and plan: Summary: Mr. Scott is a 79-year-old male with past medical history of hypertension, hyperlipidemia, type 2 diabetes mellitus, CAD status post coronary stent July 2023, peripheral arterial disease h/o fem-pop bypass graft surgery, BPH, SIADH, chronic hyponatremia, history of GI bleed (internal hemorrhoids) and osteomyelitis hallux of right distal hallux who presented to [facility] emergency department on 05/19/2025 with a chief complaint of mechanical ground-level fall, patient was found to have displaced intertrochanteric right hip fracture. Cardiology consulted for pre-op clearance. #Pre-op cardiac risk assessment #CAD status post PCI July 2023 Presented with ground-level mechanical fall, found to have displaced intertrochanteric right hip fracture in the ER confirmed on imaging. Orthopedics consulted, plan to undergo surgery in AM. Patient denies any chest pain/pressure, palpitations, dizziness, shortness of breath, leg swelling, presyncope and syncopal symptoms. Cardiology consulted for preop clearance clearance considering history of CAD. Cardiac catheterization report from July 2023: Patient underwent successful PCI right coronary artery posterior descending branch, 95% preprocedure stenosis was noted in the vessel. Additional stent was placed in PL branch of RCA. Cardiac cath findings August 2024: Widely patent stent involving the right coronary artery PDA, PL branches. Moderate disease of distal left anterior descending artery to be managed medically. Calcification of LAD, left main and circumflex arteries. No significant obstructive disease. Normal left ventricular function. Patient has been compliant on medication regimen currently on Plavix 75 mg and atorvastatin 80 mg along with metoprolol succinate 37.5 mg daily. Patient is established with dermatology physician Dr. Dalila Mcdaniel and follows him outpatient. TSH 04/29/2025 1.48, lipid panel 05/01/2025 triglyceride 58, cholesterol 64, LDL 17, HDL 35, cholesterol/HDL ratio 1.8, A1c 04/29/2025 6.7 Patient's previous echo from August 2024 normal LV function LVEF 60%, technically difficult study. EKG obtained today shows sinus rhythm, frequent PVCs, some T wave inversion noted on V1?V3 Revised cardiac risk index score?2 points HEART score for Major Cardiac events?6 points, risk of mace 12-16% METS less than 4 Echocardiogram obtained 05/19/2025 shows 1. Left ventricle size is normal and systolic function is normal. Estimated ejection fraction is 55-60%. There is indeterminate diastolic function. 2. Right ventricle chamber size is normal and systolic function is normal. Estimated RVSP is 18 mmHg. 3. There is trace mitral valve regurgitation. 4. There is trace tricuspid valve regurgitation. 5. Not well visualized IVC with estimated RA pressure 8 mmHg. Recommendations: ? Agree with holding Plavix prior to surgery as patient's stents were placed more than 1 year ago. ? Based on patient's cardiac risk, patient is at acceptable but mildly elevated cardiac risk for surgery. No further cardiac workup needed as patient recently had angiogram earlier this year along with echo now. ? 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 Keep potassium greater than 4 and magnesium greater than 2 at all times. ? Recommend transfusing pRBC prn, keep hemoglobin greater than 8, anemia workup outpatient ? Continue Eliquis 2.5mg BID for DVT prophylaxis by primrary team, continue both Plavix and Eliquis as patient does have h/o fem-pop bypass graft surgery. ? Consider Switching to Aspirin if concern of increased bleeding risk. ? Recommend patient follow-up with primary dermatology physician Dr. Mcdaniel within 1 week of discharge. #Hypertension #Hyperlipidemia #Peripheral arterial disease Patient on metoprolol 37.5 mg daily, atorvastatin 80 mg at bedtime. ?Continue atorvastatin and metoprolol home dose #Type 2 diabetes mellitus #BPH #SIADH #Chronic hyponatremia #History of GI bleed #Osteomyelitis hallux of right distal hallux #Constipation #Hypomagnesemia Management as per primary team. Thank you for the consult and allowing to participate in the care of the patient. Cardiology will continue to follow. Case discussed with Attending Physician Dr. Nathan Daniel MD Internal Medicine PGY-2 Disclaimer: This note was dictated by speech recognition. Minor errors in naval [employer] may be present due to voice recognition software. Attending Provider Attestation/Addendum I have personally seen and examined the patient separately on the above date of service and discussed the plan of care with the resident. I reviewed the resident Dr. Adina Daniel consultation progress note and agree with the resident findings and plan in the note above and have also edited the documentation to reflect my findings and plan. Nathan Larios M.D. Interventional Cardiology
[2025-05-26] MEDS: MAGNESIUM OXIDE 400 MG TABLET PO (08:39)
[2025-05-26] MEDS: MULTIVITAMINS TABLET 1 TAB PO (08:39)
[2025-05-26] MEDS: APIXABAN 2.5 MG TABLET PO (08:39)
[2025-05-26] MEDS: CLOPIDOGREL BISULFATE 75 MG TABLET PO (08:39)
[2025-05-26] MEDS: LOSARTAN POTASSIUM 25 MG TABLET 50 MG PO (08:39)
[2025-05-26] MEDS: Magnesium Sulfate 2 GM Ivpb 2 GM/50 ML BAG IV (08:39)
[2025-05-26] MEDS: DOCUSATE SOD 100 MG CAPSULE PO (08:40)
[2025-05-26] MEDS: METOPROLOL SUCCINATE XL 25 MG TABCR 37.5 MG PO (08:40)
[2025-05-26] MEDS: TAMSULOSIN HCL 0.4 MG CAPSULE PO (08:40)
[2025-05-26] MEDS: FINASTERIDE 5 MG TABLET PO (08:40)
--- NOTE | 2025-05-26 10:15 | ESDS_ITS ---
<Statement entered by Donis Bains MD - 06/05/25 08:25> I reviewed above note and agree with findings and plans. I have also personally examined the patient with medicine team and went over assessment and plan with medical team including technical intern and resident physician. Planned Discharge Date 05/26/25 DS: Providers Provider Date of admission: 05/19/25 11:20 Primary care physician: Narciso Mancini Admitting Provider: Donis Bains MD Attending Provider on Admission: Emil Barton MD Consults: 05/19/25 10:13 Consult to Orthopedic Stat Comment: right hip fracture Consulting Provider: Gavino Malik 05/19/25 11:35 Referral Speech Therapy Stat Comment: SWALLOW EVALUATION COUGHING WITH PUDDING 05/19/25 12:00 Consult to Cardiology Routine Comment: Consulting Provider: Nathan Larios Instructions: Needs cardiac clearance for hip fracture surgery 05/19/25 16:08 Referral Wound Care Routine Comment: 05/19/25 16:20 Consult to General Surgery Stat Comment: Consulting Provider: Jenny Quispe 05/19/25 16:54 Referral Nutritional Services Routine Comment: Wounds 05/20/25 08:00 Referral Physical Therapy Routine Comment: Physician Instructions: 05/24/25 08:34 Referral Speech Therapy Urgent Comment: Attending Provider on DC: Donis Bains MD Discharging Provider: Sindy Bartholomew MD DS: Diagnosis Problem List Completed Was Problem List Reviewed/Reconciled?: Yes Hospital Course Hospital Course Hospital course: 79-year-old male with a past medical history significant for coronary artery disease status post PCI in July 2023, chronic hyponatremia/SIADH, peripheral arterial disease, type 2 diabetes mellitus, hypertension, BPH, and chronic osteomyelitis of the right great toe, who presented on 05/19/2025 after a mechanical ground-level fall at home. Imaging in the emergency department revealed a displaced intertrochanteric fracture of the right femur. Orthopedic surgery was consulted, and the patient was admitted to the medicine service for medical optimization and cardiac clearance prior to operative intervention. Cardiology evaluated the patient preoperatively given his significant cardiac history and determined that he was at acceptable but mildly elevated cardiac risk for surgery. Echocardiogram demonstrated preserved left ventricular systolic function with an ejection fraction of 55?60% and no significant valvular disease. Plavix was held perioperatively given that coronary stents were placed over one year prior. The patient underwent right hip cephalomedullary nail fixation on 05/21/[address] Malik. Postoperative imaging demonstrated satisfactory alignment, and the patient tolerated the procedure without complications. He was made weightbearing as tolerated and participated in physical therapy. During hospitalization, the patient was noted to have [id number] anemia related to traumatic blood loss from his fracture and surgical interventions. He required a total of four units of packed red blood cells to maintain hemoglobin above 8 given his underlying coronary artery disease. Hemoglobin stabilized prior to discharge. The patient also had known chronic osteomyelitis of the right great toe, which was noted by wound care to be worsening compared to prior admission despite ongoing intravenous antibiotics. General surgery was consulted, and after discussion of risks and benefits, the patient underwent right first toe amputation on 05/22/2025. The procedure was uncomplicated, and the patient recovered well postoperatively with stable wound appearance. The hospital course was further complicated by a choking episode on 05/24/2025 for which a rapid response was called. The patient improved with suctioning and coughing and remained hemodynamically stable. Family reported similar episodes at home, particularly with liquids. Chest X-ray was obtained, and speech therapy was consulted for swallow evaluation and cleared patient with dysphagia diet. The patient was briefly placed NPO, after which he was advanced back to diet without further choking episodes. The patient?s chronic hyponatremia was monitored throughout the admission. Sodium levels fluctuated but were managed with salt tablets and intravenous fluids when needed, with close laboratory monitoring. Hypomagnesemia was intermittently noted and corrected with intravenous supplementation. At the time of discharge, the patient was hemodynamically stable, tolerating oral intake without difficulty, and had stable postoperative surgical sites. He was deemed medically stable for discharge with appropriate outpatient follow-up to a SNF. 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 Patient was able to explain back to physician and nursing staff how to take their medications. Patient expressed understanding with instructions. Follow up with your orthopedic surgeon and general surgeon within 2 weeks of discharge. New Medications: ? Continue taking ELIQUIS 2.5mg twice daily for 14 more days ? Continue taking LOSARTAN 50 mg daily for high blood pressure ? Continue taking TYLENOL as prescribed below for pain or fever ? Continue taking NORCO as prescribed below for severe pain Continue to take the rest of your medications as prescribed by your primary care physician. Patient has been explained that should any symptoms recur or worsen patient is instructed to return to the Emergency Department. ----- Plan discussed with attending physician Dr. Nara Bartholomew MD PGY-1 Internal Medicine Time Spent with Patient Time attestation: Total time spent providing and/or coordinating discharge services: Time spent: Greater than 30 minutes Exam Vital Signs Temp Pulse Resp BP Pulse Ox O2 Del Method O2 Flow Rate 97 F 77 16 148/74 H 99 Room Air 0 05/26/25 08:00 05/26/25 08:40 05/26/25 08:00 05/26/25 08:40 05/26/25 08:00 05/26/25 08:00 05/24/25 17:10 Narrative Exam GENERAL: Elderly male, in no acute distress, laying comfortably on bed with fairchild catheter. HEENT: Normocephalic, atraumatic, extraocular movements intact, pupils equal and reactive to light NECK: Supple, no JVD or bruits. CARDIOVASULAR: RRR, S1 and S2 heard, without murmur, rubs or gallops. LUNGS/CHEST: Clear to auscultation bilaterally. No rails, rhonchi, or wheezing. ABDOMEN: Soft, nontender, with normal bowel sounds. No rebound, rigidity, or guarding. EXTREMITIES: Right foot covered in dressing, appears clean. Right hip dressing clean and dry SKIN: Warm and dry without rashes. NEURO: Alert, awake and oriented x4. Cranial nerves: II through XII grossly intact. normal speech, able to answer questions and follow commands appropriately, strength and sensation normal and equal bilaterally, no focal neurological deficits PSYCHIATRIC: Normal mood and affect. Discharge Plan Plan Patient Disposition: Xfer Skilled Nsg Fac (SNF) Disposition Comment: [facility] Wang Patient condition on transfer: Stable Care Plan Goals: Follow up with primary care physician within 1 week of discharge Instructions have been explained to the patient with regards to their medications and how to take them. Patient was able to explain back to physician and nursing staff how to take their medications. Patient expressed understanding with instructions. Follow up with your orthopedic surgeon and general surgeon within 2 weeks of discharge. New Medications: ? Continue taking ELIQUIS 2.5mg twie daily for 14 more days ? Continue taking LOSARTAN 50 mg daily for high blood pressure ? Continue taking TYLENOL as prescribed below for pain or fever ? Continue taking NORCO as prescribed below for severe pain Continue to take the rest of your medications as prescribed by your primary care physician. Patient has been explained that should any symptoms recur or worsen patient is instructed to return to the Emergency Department. Prescriptions/Referrals Prescriptions/Med Rec: New Eliquis 2.5 mg tablet 2.5 mg PO BID 13 Days Qty: 26 0RF losartan 50 mg tablet 50 mg PO QDAY Qty: 30 0RF acetaminophen [Tylenol 8 Hour] 650 mg tablet extended release 650 mg PO Q6HR PRN (Reason: fever or mild pain) 30 Days Qty: 120 0RF hydrocodone-acetaminophen 5-325 mg tablet 1 tab PO Q6HR MDD max 4 tablets in 24 hours PRN (Reason: sever pain) 7 Days Qty: 28 0RF naloxone [Narcan] 4 mg/actuation spray,non-aerosol 4 mg intranasal Q3M PRN (Reason: opioid overdose) Qty: 2 0RF Rx Instructions: spray 1 dose into ONE nostril; alternate nostrils w each dose until help arrives Continued finasteride 5 mg tablet 5 mg PO QDAY Patient Comments: TAKE ONE TABLET BY MOUTH EVERY DAY FOR PROSTATE sodium chloride 1,000 mg tablet,soluble 1,000 mg PO TID 30 Days Qty: 90 0RF Patient Comments: TAKE ONE TABLET BY MOUTH TWICE DAILY multivitamin Tablet 1 tab PO QAM Patient Comments: TAKE ONE TABLET BY MOUTH EVERY DAY IN THE MORNING metformin 1,000 mg tablet 1 tab PO BID Patient Comments: TAKE ONE TABLET BY MOUTH TWICE DAILY docusate sodium 100 mg capsule 1 cap PO BID Patient Comments: TAKE ONE CAPSULE BY MOUTH TWICE DAILY FOR CONSTIPATION clopidogrel 75 mg tablet 75 mg PO DAILY Patient Comments: TAKE ONE TABLET BY MOUTH EVERY DAY FOR CIRCULATION atorvastatin 80 mg tablet 80 mg PO DAILY Patient Comments: TAKE ONE TABLET BY MOUTH EVERY DAY FOR CHOLESTEROL metoprolol succinate 25 mg tablet extended release 24 hr 37.5 mg PO DAILY Patient Comments: TAKE 1 AND 1/2 TABLETS BY MOUTH EVERY DAY FOR BLOOD PRESSURE Jardiance 10 mg tablet 10 mg PO QDAY Patient Comments: TAKE ONE TABLET BY MOUTH EVERY DAY FOR DIABETES Discontinued tamsulosin [Flomax] 0.4 MG capsule,extended release 24hr 0.4 mg PO BID Qty: 0 ceftriaxone 2 gram recon soln 2 g IV QDAY 30 Days doxycycline hyclate 100 mg capsule 100 mg PO BID 30 Days Qty: 60 0RF Referrals: Narciso Mancini [Primary Care Provider] Jenny Quispe MD [Physician, General Surgery] Gavino Malik MD [Physician, Orthopedics] Patient/Caregiver Discharge Instructions Education Materials: Preventing Surgical Site Infections Print Language: Swedish Stand Alone Forms: Isha Award Info., Patient Portal Info Letter Discharge Order Discharge Orders: Discharge (Routine); Ordered 05/26/25 Ordered By: Sindy Bartholomew Quality Discharge Quality Measures VTE prophylaxis
[2025-05-26] MEDS: INSULIN LISPRO (AdmeLOG) 1 UNIT/0.01 ML UNIT SC (12:24)
== END 2025-05-26 16:02 | disposition skilled nursing facility (03) | DRG 480 ==
LOC: SERX 11:17 → SERHOLD 11:23 → S3NX 14:45
PROVIDERS: Orthopaedic Surgery Adult Reconstructive Orthopaedic Surgery; Surgery; Admitting Provider Internal Medicine; PCP Internal Medicine; Visit Provider Student in an Organized Health Care Education/Training Program
DX: S72.141A Displaced intertrochanteric fracture of right femur, initial encounter for closed fracture (principal); J18.9 Pneumonia, unspecified organism; E22.2 Syndrome of inappropriate secretion of antidiuretic hormone; M86.671 Other chronic osteomyelitis, right ankle and foot; D62 Acute posthemorrhagic anemia; E11.69 Type 2 diabetes mellitus with other specified complication; S72.111A Displaced fracture of greater trochanter of right femur, initial encounter for closed fracture; I10 Essential (primary) hypertension; I25.10 Atherosclerotic heart disease of native coronary artery without angina pectoris; E83.42 Hypomagnesemia; R13.12 Dysphagia, oropharyngeal phase; R33.8 Other retention of urine; E78.5 Hyperlipidemia, unspecified; N40.1 Benign prostatic hyperplasia with lower urinary tract symptoms; L08.9 Local infection of the skin and subcutaneous tissue, unspecified; F17.200 Nicotine dependence, unspecified, uncomplicated; Z95.5 Presence of coronary angioplasty implant and graft; W01.0XXA Fall on same level from slipping, tripping and stumbling without subsequent striking against object, initial encounter; Y93.01 Activity, walking, marching and hiking; Z79.01 Long term (current) use of anticoagulants; Z79.02 Long term (current) use of antithrombotics/antiplatelets; Z79.4 Long term (current) use of insulin; Z79.84 Long term (current) use of oral hypoglycemic drugs; E11.65 Type 2 diabetes mellitus with hyperglycemia; Z90.49 Acquired absence of other specified parts of digestive tract; E11.51 Type 2 diabetes mellitus with diabetic peripheral angiopathy without gangrene; I49.3 Ventricular premature depolarization; Z79.899 Other long term (current) drug therapy; Z96.649 Presence of unspecified artificial hip joint; I25.2 Old myocardial infarction
CPT/HCPCS: 36415; 51702; 71045; 73501; 73502; 73521; 73552; 73700; 76000; 80053; 80069; 83735; 84100; 84484; 85014; 85018; 85025; 85610; 85730; 86850; 86900; 86901; 86923; 87081; 92526; 92610; 93005; 93225; 93306; 96374; 97162; 99283; A4217; A4314; A4649; C1713; C1769; J0131; J0696; J1100; J1171; J1815; J2270; J2371; J2405; J2470; J2704; J3010; J3475; J3490; J7030; J7042; J7050; J7120; J7999; P9016; A9270

== ENCOUNTER 2025-06-10 08:48 | Outpatient (AMB) | payer MEDICARE, MEDICAID, SELFPAY ==
[2025-06-10 09:17] VITALS: BP 120/83; PULSE 96; RESP 18; TEMP 36.1; O2SAT 97; BMI 19.2
--- NOTE | 2025-06-10 09:17 | PD.ORTHCLVIS ---
Vital signs 06/10/25 09:17 Height 1.75 m Height Method Stated Weight 58.967 kg Weight Measurement Method Estimated by Patient BMI 19.2 BP 120/83 Blood Pressure Source Automatic Cuff Blood Pressure Location Left Upper Arm Position Sitting Respiration 18 Pulse 96 Pulse Source Monitor Temp 97.0 F Temp Source Temporal Artery Scan Pulse Oximetry (%) 97 Oxygen Delivery Method Room Air Med/Allergies Allergies & Medications Allergies naproxen Allergy (Severe, Verified 06/10/25 09:18) DIFFICULTY BREATHING Medication Reconciliation finasteride 5 mg tablet 5 mg PO QDAY 07/05/19 [History Confirmed 06/10/25] docusate sodium 100 mg capsule 1 cap PO BID 03/04/22 [History Confirmed 06/10/25] metformin 1,000 mg tablet 1 tab PO BID 03/04/22 [History Confirmed 06/10/25] multivitamin 1 tab PO QAM 03/04/22 [History Confirmed 06/10/25] atorvastatin 80 mg tablet 80 mg PO DAILY 09/01/24 [History Confirmed 06/10/25] clopidogrel 75 mg tablet 75 mg PO DAILY 09/01/24 [History Confirmed 06/10/25] metoprolol succinate 25 mg tablet,extended release 24 hr 37.5 mg PO DAILY 09/01/24 [History Confirmed 06/10/25] sodium chloride 1,000 mg soluble tablet 1,000 mg PO TID 30 days #90 tabs 05/14/25 [Rx Confirmed 06/10/25] empagliflozin 10 mg tablet (Jardiance) 10 mg PO QDAY 05/19/25 [History Confirmed 06/10/25] acetaminophen 650 mg tablet,extended release (Tylenol 8 Hour) 650 mg PO Q6HR PRN fever or mild pain 30 days #120 tabs 05/25/25 [Rx Confirmed 06/10/25] losartan 50 mg tablet 50 mg PO QDAY #30 tabs 05/25/25 [Rx Confirmed 06/10/25] naloxone 4 mg/actuation nasal spray (Narcan) 4 mg intranasal Q3M PRN opioid overdose #2 ea 05/26/25 [Rx Confirmed 06/10/25] Exam Exam Patient is in no acute distress and is cooperative with the examination today. Patient has a normal mood and affect. Breathing is nonlabored. In no respiratory distress. Bilateral extremities were evaluated and demonstrates sensation intact to light touch. Palpable pedal pulses are present. No significant edema is present. Right hip incision is clean dry and intact Assessment and Plan Problem List (1) Intertrochanteric fracture of right femur: Status: Acute Plan: Patient is an 79-year-old male status post right hip cephalomedullary nail. He is doing well and his incision is doing great. We recommend physical therapy at the group home Advanced Care Planning Discussion Advance care planning discussed with:: patient Office Procedures GNS Level of Care Nursing/Assessment Patient Status: Established Patient Nursing Assessment/Reassesment: Medication Reconciliation, Update PMH in EMR and Vital Signs Coordination of Care: Complex Care and Chronic Disease 1-5, Education Complex Pt/Fam, Consent,records obtained, informed consent, Results/Orders obtained and Staff clarify orders Established Patient Charge Established Patient Point Assignment: 95 Established Patient Point Charge: EP Level 3 (80-115) MA Intake Visit Data Collection New Patient or Established: Established Patient (seen at [facility] within 3 years) Reason for Visit:: 2 WK POST OP Seen by Clinical Staff ONLY (RN/MA): No PCP or OBGYN visit in last 3 months: Yes Hx Now: No Do You Feel Safe at Home: Yes Authorities Contacted: N/A Questionairres Past Medical History Past Medical History Have you ever been diagnosed with any of the following: Neurological Problems Transient Ischemic Attacks (TIA): Yes Seizures: No Cardiology Problems Hypercholesterolemia: Yes Congestive Heart Failure: No Hypertension: Yes Respiratory Problems Chronic Obstructive Pulmonary Disease (COPD): No Asthma: No Stomache/Intestinal Problems Gall Bladder Disease: Yes Genital/Urinary Problems Renal Disease: No Benign Prostatic Hyperplasia: Yes Musculoskeletal Problems Arthritis: No Head,Eye,Nose,Throat Problems Cataracts: Yes Endocrine Problems Diabetes Mellitus Type 1: No Diabetes Mellitus Type 2: No Blood Problems Sickle Cell Disease: No Psychologic Problems Anxiety: Yes Other Problems Hospitalization: No Down Syndrome: No Developmental Delay: No Shingles: No Falls: No Blood Transfusions: No Blood Transfusion Reaction: No Anesthesia Reactions: No Chicken Pox: Yes Measles: No Mumps: No Clostridium Difficile: No Cancer: No Subjective Visit Visit for: follow up visit Immunization / Flu Flu Vaccine in the Last 12 Months: No Flu Vaccine Exclusion Criteria: No Exclusion Criteria History of Present Illness Chief complaint: Right hip fracture Geraldo is a 79-year-old female status post cephalomedullary nail. We saw her x-rays from the [facility] facility. He reports his pain is primarily from his sacral decubitus ulcer on his buttocks Pain Pain level (0-10): 0 Associated signs & symptoms: none Ambulatory data Ambulatory device: other (specify) (WHEEL CHAIR) Treatments Improvement with previous injections: No Improvement with PT: No Improvement with NSAIDS: no Review of Systems Review of Systems: All systems negative unless otherwise noted in HPI.
== END 2025-06-10 09:42 | disposition home or self-care (01) ==
PROVIDERS: PCP Internal Medicine; Referring Provider Internal Medicine; Supervising Provider Orthopaedic Surgery Adult Reconstructive Orthopaedic Surgery; Visit Provider Orthopaedic Surgery Adult Reconstructive Orthopaedic Surgery
DX: S72.141D Displaced intertrochanteric fracture of right femur, subsequent encounter for closed fracture with routine healing (principal); X58.XXXD Exposure to other specified factors, subsequent encounter; I10 Essential (primary) hypertension
CPT/HCPCS: 99213; G0463